=== PATIENT | female | born 1945 | race Caucasian/White ===

== ENCOUNTER 2016-12-09 03:43 | Inpatient (IN) | payer MEDICARE, MEDICAID ==
[~2016-12-09] VITALS: Ht 162.6 cm; Wt 132.3 kg
[~2016-12-09 03:43] MED LIST: *GLUCOMETE; *HOLTER -; *MAMMOGRAM; /ESOM40CA; /PRAV20TA; /WARF4TA; ALTA10CA; ALTA10CA3 PO; ALTACE10 PO; ASP325 PO; ASPEC325 PO; ATEN50TA2 PO; AVANDIA8 PO; BACITAB3 PO; BACTRIMDS PO; BACTROCREA TOPICALLY; BISO10TA PO; BISO5TAB5 PO; CAL/VITD PO; CAPOTEN PO; CELEBRE100 PO; CIPRO250 PO; CIPRO500 PO; COUM1TAB19 PO; COUM2.5T11 PO; COUM2TAB10 PO; DARVOCET-N PO; DEBROX; DIABETA5 PO; DIGO0.25 PO; DOCU10CA PO; DRIS50002 PO; DRISDOL50 PO; DURATUSS-G PO; ELIQ5TAB PO; FERR325T3 PO; FLECTOR TOPICAL; FOSAMAX70 PO; FURO20TA2 PO; FURO40TA2 PO; GLUC1KIT SC; GLUC850T; GLUCCOSEAC TOPICAL; GLUCOMETER; GLUCOPH850 PO; GLUCOSE TEST; GLUCULTRA TOPICAL; GLYBURIDE5 PO; HCTZ25 PO; HIBI4LIQ TOP; HUMA75IN2 SC; HUMULIN; HUMULIN703 SC; INSUDET SC; INSUH10VL SC; INSUHUMDS SC; INSULINSYR SUBQ; KEFL500C7 PO; KEFLEX500 PO; LAC-12LO3 TOP; LAMISIL250 PO; LANCMIS; LANCMIS SQ; LASI20TA PO; LASI40TA; LASIX40 PO; LEVA250T PO; LEVAQUI250 PO; LEVAQUI500 PO; LEXA1TAB PO; LINE60TAB PO; LIPITOR20 PO; LOTRISCREA TOPICALLY; LYRICA100 PO; MACROBID PO; MAG400TA PO; MAGN200T3 PO; MAGN400T2 PO; METF850T PO; NASONEX NASAL; NEXI40CA PO; NEXIUM40 PO; NITR4TASL SL; NIZORALCR TOP; NOVO70VL SC; NYST10PW TOP; PANT40TA2 PO; PRAV1TAB39 PO; PRAVACHOL1 PO; PRAVACHOL2 PO; PRILOSEC40 PO; PROL60SO SC; RAMI10CA PO; RAMI5CA PO; RISATAB3 PO; SALI0.9I2 IV; SANT250O8 TOP; SARNLOT TOP; SENO8.6T2 PO; SILV1CRE19 TOP; SOLARAZE TOPICAL; SYMBI INHALATION; TEQUIN PO; TEQUIN400 PO; TESSALO100 PO; TYLE325T5 PO; TYLE650T30 PO; VICODIN PO; WARF4TAB51 PO; ZANTAC150 PO; ZETI10TA; ZETI10TA2 PO; ZETIA PO; ZITHROZPAK PO; [UNRECOGNIZED DRUG - CODE] PO; [UNRECOGNIZED DRUG - CODE] PO; [UNRECOGNIZED DRUG - CODE] PO; [UNRECOGNIZED DRUG - CODE] PO; [UNRECOGNIZED DRUG - CODE] TOPICAL; [UNRECOGNIZED DRUG - OTHER] TOPICAL; [UNRECOGNIZED DRUG - SUPPLY]; dextrose 50% IV; humulin 70/30
[2016-12-09 05:16] LABS: BASO % 0.2 % (0.0-1.0); EOS % 0.2 % (0.0-3.0); LARGE UNSTAINED CELL # 0.1 K/mm3 (0.0-0.4); LARGE UNSTAINED CELL % 0.5 % (0.0-4.0); LYMPH # 0.2 K/mm3 (1.5-4.5); LYMPH % 1.7 % (24.0-44.0); MEAN CORPUSCULAR HGB CONC 31.3 g/dl (32.0-36.5); MEAN CORPUSCULAR VOLUME 89.5 fl (80.0-96.0); MONO # 0.3 K/mm3 (0.0-0.8); MONO % 2.7 % (0.0-5.0); NEUTROPHILS % 94.6 % (36.0-66.0); PLATELET COUNT, AUTOMATED 207 k/mm3 (150-450); RED CELL DISTRIBUTION WIDTH 15.8 % (11.5-14.5); WHITE BLOOD COUNT 12.6 K/mm3 (4.0-10.0)
[2016-12-09 05:38] LABS: ALBUMIN 2.5 GM/DL (3.2-5.2); ALBUMIN/GLOBULIN RATIO 0.58 (1.00-1.93); ALKALINE PHOSPHATASE 148 U/L (45-117); ALT/SGPT 12 U/L (12-78); ANION GAP 14 MEQ/L (8-16); AST/SGOT 10 U/L (15-37); BILIRUBIN,DIRECT 0.5 MG/DL (0.0-0.2); BILIRUBIN,TOTAL 0.9 MG/DL (0.2-1.0); BLOOD UREA NITROGEN 39 MG/DL (7-18); CALCIUM LEVEL 9.9 MG/DL (8.8-10.2); CARBON DIOXIDE LEVEL 19 MEQ/L (21-32); CHLORIDE LEVEL 100 MEQ/L (98-107); CREATININE FOR GFR 2.08 MG/DL (0.55-1.02); GLOMERULAR FILTRATION RATE 24.8 (>39); POTASSIUM SERUM 4.1 MEQ/L (3.5-5.1); SODIUM LEVEL 133 MEQ/L (136-145); T UPTAKE 37 % (30-39); TOTAL PROTEIN 6.8 GM/DL (6.4-8.2)
[2016-12-09 05:56] LABS: GLUCOSE, FASTING 530 MG/DL (83-110)
[2016-12-09] MEDS ORDERED: HumuLIN R (REGULAR) INSULIN (NovoLIN R) **100U/ML** PER UNIT As Ordered ONE (06:26)
[2016-12-09] MEDS ORDERED: cefTRIAXone SOD 1 GM VIAL (J0696) As Ordered ONE (07:41)
[2016-12-09] MEDS ORDERED: RAMI10CA PO (08:17)
[2016-12-09] MEDS ORDERED: FERR325T3 PO (08:18)
[2016-12-09] MEDS ORDERED: NYST100024 TOP (08:18)
[2016-12-09] MEDS ORDERED: DRIS50002 PO (08:20)
--- NOTE | 2016-12-09 08:22 | REP ---
Clinical: Syncope. Comparison: 03/27/2015. Findings: Stable cardiomegaly. Visualized lung keith are well-aerated and clear. No obvious consolidation, effusion, or pneumothorax. Skeletal structures intact. Impression: Stable cardiomegaly. No acute cardiopulmonary process identified. Signed by Felipe Diop MD 12/09/2016 08:14 A
[2016-12-09] MEDS ORDERED: METOPROLOL 5 MG/5 ML VIAL As Ordered ONE (08:43)
[2016-12-09] MEDS ORDERED: BISOPROLOL FUMARATE 5 MG TAB As Ordered ONE (08:43)
[2016-12-09] MEDS ORDERED: LEVEMIR (INSULIN DETEMIR) 1 UNITS/0.01ML As Ordered ONE (08:45)
--- NOTE | 2016-12-09 08:49 | ECGEPIP ---
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
[2016-12-09 09:17] LABS: ABG BASE EXCESS -7.2 (-2.0-2.0); ABG DEVICE ROOM AIR; ABG HCO3 15.8 MEQ/L (22.0-26.0); ABG PARTIAL PRESSURE CO2 25.5 mmHg (35.0-45.0); ABG PARTIAL PRESSURE O2 83.5 mmHg (75.0-100.0); ABG STANDARD HCO3 18.6 MEQ/L (22.0-26.0); ABG TOTAL CO2 16.6 MEQ/L (23.0-31.0)
--- NOTE | 2016-12-09 09:19 | REP ---
Portable chest x-ray: Single AP view. History: Difficulty breathing. Findings: Upright portable chest x-ray shows clear well inflated lungs. Moderate cardiomegaly is observed unchanged. The aorta is calcific. Pulmonary vasculature is not increased. Impression: Cardiomegaly. No infiltrate seen. Signed by Chi Kirby MD 12/09/2016 01:41 P
[2016-12-09] MEDS ORDERED: MEROPENEM 1 GM VIAL (J2185) As Ordered ONE (14:23)
[2016-12-09 15:45] VITALS: BP 92/58
--- NOTE | 2016-12-09 15:54 | EDDOCDS ---
Physician Documentation [facility] Name: Karen Painter Age: 71 yrs Sex: Female : 1945 Arrival Date: 12/09/2016 Time: 03:43 Bed Admit Hold Private MD: Jann Sherman E. Disposition: 12/09/16 07:55 Hospitalization ordered by Julius Green for Inpatient Admission. Preliminary diagnosis are Urinary tract infection, site not specified, Chronic atrial fibrillation. - Bed requested for PCU. - Status is Inpatient Admission. bcj - Condition is Stable. - Problem is new. - Symptoms have improved. Historical: - Allergies: nkda, but reports headache with keflex; - Home Meds: 1. Altace 10 mg Oral cap 1 cap once daily 2. bisoprolol fumarate 5 mg oral tab 1 tab twice daily 3. Eliquis 5 mg oral tab 1 tab 2 times per day 4. ferrous sulfate 325 mg (65 mg iron) Oral cpER 325 mg daily 5. Humalog 100 unit/mL Sub-Q soln sliding scale at meals and bedtime 6. Lasix 40 mg Oral tab 1 tab once daily 7. Levemir 100 unit/mL subcutaneous soln 70 unit three times a day 8. Lexapro 10 mg Oral tab 1 tab once daily 9. magnesium oxide 400 mg Oral cap 400 mg twice a day 10. Nexium 40 mg Oral cpDR 1 cap once daily 11. Nitrostat 0.4 mg SL subl 1 tab every 5 minutes 12. Pravachol 20 mg Oral tab 1 tab once daily 13. prolia 60mg q 6 months 14. Zetia 10 mg Oral tab 1 tab once daily - PMHx: Atrial Fib; CHF; COPD; hyperlipidemia; Diabetes - IDDM: controlled; Kidney stones; Hypertension; reflux; Osteoporosis; renakl insufficiency; venous insufficiency; - Social history: Smoking status: Patient states former smoker of tobacco. No barriers to communication noted, The patient speaks fluent Khmer, Speaks appropriately for age. - Family history: Not pertinent. - : The pt / caregiver states he / she is on anticoagulants: Eliquis Home medication list is obtained from [employer] import data. - Exposure Risk Screening:: None identified. Vital Signs: 12/09 03:53 BP 151 / 99 RA Sitting (auto/reg); Pulse 126 MON; Resp 24 S; Temp 99.4(TE); Pulse Ox cln 94% on R/A; Weight 148.78 kg / 328 lbs (R); Height 5 ft. 4 in. (162.56 cm) (R); Pain 0/10; 05:13 BP 139 / 78 (auto/); ko2 05:16 Pulse 128 MON; Pulse Ox 93% ; ko2 05:42 Pulse 132 MON; Pulse Ox 95% ; ko2 05:43 BP 123 / 58 (auto/); ko2 06:12 Pulse 120 MON; Pulse Ox 94% ; ko2 06:13 BP 112 / 69 (auto/); ko2 06:43 BP 122 / 74 (auto/); ko2 06:43 Pulse 114 MON; Pulse Ox 94% ; ko2 08:20 Pulse 142 MON; Pulse Ox 97% ; bcj 08:24 BP 123 / 75 (auto/); bcj 08:24 Pulse Ox 97% ; bcj 15:08 BP 122 / 58; Pulse 106; Resp 16; Temp 96.4(O); Pulse Ox 95% on R/A; Pain 4/10; bcj 03:53 Body Mass Index 56.30 (148.78 kg, 162.56 cm) cln MDM: 04:34 ECG WITH READING ER PHYS+CARDIAG ordered. EDMS 04:49 Bottom Buffer/Pulse Ox/q 30 min VS ordered. nov 04:49 IV Saline Lock ordered. nov 04:49 Rhythm Strip to chart ordered. nov 04:49 Undress patient appropriately for examination ordered. nov 04:50 Basic Metabolic Profile Ordered. EDMS 04:50 CBC with Diff Ordered. EDMS 04:50 Cardiac Injury Profile Ordered. EDMS 04:50 Troponin Ordered. EDMS 05:00 Financial registration complete. hs2 05:03 [facility] Payment Agreement was scanned into [employer] and attached to record. hs2 05:04 Kaufman ordered. cs11 05:04 NS 0.9% 500 ml IV at bolus once ordered. cs11 05:06 Urinalysis Ordered. EDMS 05:06 Urine Culture Ordered. EDMS 05:06 Lactic Acid (Stern tube on ice) Ordered. EDMS 05:06 Chest, 1 View Ordered. EDMS 05:07 -Blood Culture (Adults Only), peripheral from different site, or from device/port/PICC cs11 etc. if present ordered. 05:08 -Blood Culture Ordered. EDMS 05:20 -Blood Culture (Adults Only), peripheral from different site, or from device/port/PICC ml3 etc. if present complete. 05:21 BLOOD CULTURES Ordered. EDMS 05:24 LIVER PROFILE Ordered. EDMS 05:24 THYROID PROFILE Ordered. EDMS 05:47 CBC with Diff Reviewed. cs11 06:20 Basic Metabolic Profile Reviewed. cs11 06:20 Lactic Acid (Stern tube on ice) Reviewed. cs11 06:20 LIVER PROFILE Reviewed. cs11 06:20 Cardiac Injury Profile Reviewed. cs11 06:20 Troponin Reviewed. cs11 06:20 THYROID PROFILE Reviewed. cs11 06:23 Insulin Regular Human 20 units IVP once ordered. cs11 06:23 Accucheck ordered. cs11 06:24 NS 0.9% 500 ml IV at bolus once ordered. cs11 06:59 Fingerstick Blood Sugar Ordered. EDMS 07:07 Urinalysis Reviewed. sd1 07:07 Fingerstick Blood Sugar Reviewed. sd1 07:08 BED REQUEST+ADM ordered. EDMS 07:32 cefTRIAXone 1 grams IVPB once over 30 mins; dilute in 50mL of NS or D5W ordered. sd1 08:23 Written Provider Order was scanned into [employer] and attached to record. lbd 08:41 Written Provider Order was scanned into [employer] and attached to record. lbd 08:43 Chest, 1 view Ordered. EDMS 08:44 ARTERIAL BLOOD GAS Ordered. EDMS 08:44 CARDIAC INJURY PROFILE Ordered. EDMS 08:44 CARDIAC INJURY PROFILE Ordered. EDMS 08:44 TROPONIN Ordered. EDMS 08:44 TROPONIN Ordered. EDMS 08:45 PHYSICAL THERAPY EVAL & TREAT ordered. EDMS 08:46 Admission / Observation Status ordered. EDMS 08:46 ECHOCARD,DOPPLER/COLOR FLOW ordered. EDMS 08:46 CONSISTENT CARBOHYDRATES ordered. EDMS 09:05 Metoprolol 2.5 mg IVP once; Hold for SBP < 100 or HR < 60. ordered. bcj 09:05 Bisoprolol 5 mg PO once ordered. bcj 09:05 Levemir - Insulin Detemir 100 unit/mL 70 units Sub-Q once ordered. bcj 12:13 Fingerstick Blood Sugar Ordered. EDMS 14:54 T-Sheet-- Draft Copy was scanned into [employer] and attached to record. gb Point of Care Testing: Blood Glucose: 06:53 Blood Glucose: 363 mg/dL; ko2 Ranges: Administered Medications: 05:36 Drug: NS 0.9% 500 ml [sodium chloride 0.9 % intravenous solution] Route: IV; Rate: ko2 bolus; Site: left forearm; 06:25 Drug: NS 0.9% 500 ml [sodium chloride 0.9 % intravenous solution] Route: IV; Rate: ko2 bolus; Site: left forearm; 06:28 Drug: Insulin Regular Human 20 units [insulin regular human 100 unit/mL injection ko2 solution (0.2 mL)] {Co-Signature: dheeraj (Aixa Yin RN).} Route: IVP; Site: left forearm; 07:47 Drug: cefTRIAXone 1 grams [ceftriaxone 1 gram solution for injection] Route: IVPB; bcj Infused Over: 30 mins; Site: left antecubital; 09:00 Drug: Metoprolol 2.5 mg [metoprolol 5 mg/5 mL intravenous solution (2.5 mL)] Route: bcj IVP; Site: left antecubital; 09:06 Drug: Bisoprolol 5 mg [bisoprolol fumarate 5 mg tablet (1 tabs)] Route: PO; bcj 09:06 Drug: Levemir - Insulin Detemir 70 units [insulin detemir 100 unit/mL subcutaneous bcj solution (0.7 mL)] {Co-Signature: eze (Marimar Burns RN).} Route: Sub-Q; Site: left upper arm; Signatures: Dispatcher [employer] EDPR Li Andres MD MD sd1 Stacy Peters, Telecommunications Field Engineer Unit lbd Mauro Quintana RN RN bcj Newman, Jill New, RN RN jan Barnhardt, Gloria, Reg Reg gb SaundraManny manMerline, Telecommunications Field Engineer Unit ml3 Billy Rahman DO DO cs11 Amy Sun RN RN ko2 Barrington Bradford RN RN mts Stanton, Hillary, Reg Reg hs2 Aixa Burns RN jc4 The chart was reviewed and I authenticate all verbal orders and agree with the evaluation and treatment provided.Corrections: (The following items were deleted from the chart) 05:22 05:06 THYROID PROFILE+LAB ordered. EDMS EDMS 05:22 05:06 LIVER PROFILE+LAB ordered. EDMS EDMS Attachments: 05:03 [facility] Payment Agreement hs2 08:23 Written Provider Order lbd 08:41 Written Provider Order lbd 14:54 T-Sheet-- Draft Copy gb MTDD
--- NOTE | 2016-12-09 15:54 | EDDOCDS ---
Nurse's Notes [facility] Name: Eddie Painter Age: 71 yrs Sex: Female : 1945 Arrival Date: 12/09/2016 Time: 03:43 Bed Admit Hold Private MD: Jann Sherman E. Diagnosis: Urinary tract infection, site not specified;Chronic atrial fibrillation Presentation: 12/09 03:47 Presenting complaint: EMS states: weakness, pt fell at home with no injury. This is the ko2 second day in a row she has fallen and been unable to lift herself up. Pt did not want to come but EMS insisted due to pts inability to stand up and care for self. Suicide/Homicide risk assessment- the patient denies having any suicidal and/or homicidal ideations and does not present with any other emotional, behavioral or mental health complaints. Status: Patient is not a financial services officer or dependent. Transition of care: patient was not received from another setting of care. Care prior to arrival: See EMS report. 03:47 Acuity: VIET Level 4 ko2 03:47 Method Of Arrival: Ambulance ko2 04:34 Adult Sepsis Screening: The patient does not have new or worsening altered mentation. ko2 Patient's respiratory rate is less than 22. Systolic blood pressure is greater than 100. Patient has a qSOFA score of 0- Negative Sepsis Screen. 04:43 Acuity level changed due to complexity of care. ko2 04:43 Acuity: VIET Level 3 ko2 Triage Assessment: 03:57 General: Appears in no apparent distress. General: Appears obese, unkempt, Behavior is. ko2 Pain: Denies pain. The patient is triaged at the bedside. See Assessment in Nurses Notes section of ED record. Neurological: No deficits noted. Respiratory: Airway is patent Respiratory effort is even, unlabored, Respiratory pattern is regular, symmetrical. GI: Abdomen is obese. Derm: stool on feet. Musculoskeletal: pt states can't stand up. Historical: - Allergies: nkda, but reports headache with keflex; - Home Meds: 1. Altace 10 mg Oral cap 1 cap once daily 2. bisoprolol fumarate 5 mg oral tab 1 tab twice daily 3. Eliquis 5 mg oral tab 1 tab 2 times per day 4. ferrous sulfate 325 mg (65 mg iron) Oral cpER 325 mg daily 5. Humalog 100 unit/mL Sub-Q soln sliding scale at meals and bedtime 6. Lasix 40 mg Oral tab 1 tab once daily 7. Levemir 100 unit/mL subcutaneous soln 70 unit three times a day 8. Lexapro 10 mg Oral tab 1 tab once daily 9. magnesium oxide 400 mg Oral cap 400 mg twice a day 10. Nexium 40 mg Oral cpDR 1 cap once daily 11. Nitrostat 0.4 mg SL subl 1 tab every 5 minutes 12. Pravachol 20 mg Oral tab 1 tab once daily 13. prolia 60mg q 6 months 14. Zetia 10 mg Oral tab 1 tab once daily - PMHx: Atrial Fib; CHF; COPD; hyperlipidemia; Diabetes - IDDM: controlled; Kidney stones; Hypertension; reflux; Osteoporosis; renakl insufficiency; venous insufficiency; - Social history: Smoking status: Patient states former smoker of tobacco. No barriers to communication noted, The patient speaks fluent Greek, Speaks appropriately for age. - Family history: Not pertinent. - : The pt / caregiver states he / she is on anticoagulants: Eliquis Home medication list is obtained from [employer] import data. - Exposure Risk Screening:: None identified. Screenin:35 Screening information is obtained from the patient. Fall risk: At risk due to age, ko2 prior history of falls, The following interventions are performed due to a positive Fall Risk Screen: Fall Risk is added to Special Handling on the patient Summary Screen. A Fall Risk Bracelet was applied to the patient. Side Rails are placed in the up position. A Call Jensen is given with instruction to call for help when getting out of bed. Fall Alert bracelet is placed on the patient. Assistance ADL's: requires no assistance with activities of daily living. Abuse/DV Screen: The patient / caregiver reports he/she is: not in a situation that causes fear, pain or injury. Nutritional screening: No deficits noted. Advance Directives: Currently, there is no health care proxy. home support is inadequate. Assessment: 03:59 General: See triage assessment. ko2 04:40 General: pt had stool all over gown, legs and feet. Pt cleaned up. Dressings on abdomen ko2 due to abscesses that pt states is being taken care of by Dr. Goetz. 05:02 General: Appears in no apparent distress, Behavior is appropriate for age, cooperative. ko2 Pain: Denies pain. Neurological: Level of Consciousness is awake, alert. Cardiovascular: Rhythm is atrial fibrillation with rapid ventricular response. Respiratory: Airway is patent Respiratory effort is even, unlabored. Derm: Skin is normal, Abscess located on abdomen. 06:17 General: Appears in no apparent distress, Behavior is appropriate for age, cooperative. ko2 Pain: Denies pain. Neurological: Level of Consciousness is awake, alert. Cardiovascular: Rhythm is atrial fibrillation. Respiratory: Airway is patent Respiratory effort is even, unlabored. Derm:. 07:51 General: Appears in no apparent distress, comfortable, Behavior is cooperative. Pain: bcj Denies pain. Cardiovascular: Rhythm is atrial fibrillation. Derm: Skin is pink, warm & dry. 11:14 General: Appears in no apparent distress, comfortable, Behavior is cooperative. Pain: bcj Denies pain. Cardiovascular: Rhythm is atrial fibrillation with rapid ventricular response. Derm: Skin is pink, warm & dry. 15:27 General: Appears in no apparent distress, comfortable, Behavior is cooperative. Pain: bcj Location: right leg and left leg Pain currently is 4 out of 10 on a pain scale. Cardiovascular: Rhythm is atrial fibrillation with rapid ventricular response. Derm: Skin is pink, warm & dry. Social Work Consult: 06:19 Social Work Note: Met with PT to discuss concerns for her home. PT states she has a jfb lady come to her home every Monday to clean and do laundry and that her son will occasionally help her with things. Attempted to discuss report that her home wasn't clean and that she herself was not but she was focused on "when will I get upstairs. I get so bored and uncomfortable lying her" Placed to call to her son Eric [phone] and left requesting he call to discuss. 07:52 Social Work Note: Per ALEX Kennedy, Spoke with Pt's Son. According to Son, Pt has been rb declining services in her home and help from family. Pt does have someone come in every Monday for house keeping and laundry. Family believes she needs assisted living accommodations. Vital Signs: 03:53 BP 151 / 99 RA Sitting (auto/reg); Pulse 126 MON; Resp 24 S; Temp 99.4(TE); Pulse Ox cln 94% on R/A; Weight 148.78 kg (R); Height 5 ft. 4 in. (162.56 cm) (R); Pain 0/10; 05:13 BP 139 / 78 (auto/); ko2 05:16 Pulse 128 MON; Pulse Ox 93% ; ko2 05:42 Pulse 132 MON; Pulse Ox 95% ; ko2 05:43 BP 123 / 58 (auto/); ko2 06:12 Pulse 120 MON; Pulse Ox 94% ; ko2 06:13 BP 112 / 69 (auto/); ko2 06:43 BP 122 / 74 (auto/); ko2 06:43 Pulse 114 MON; Pulse Ox 94% ; ko2 08:20 Pulse 142 MON; Pulse Ox 97% ; bcj 08:24 BP 123 / 75 (auto/); bcj 08:24 Pulse Ox 97% ; bcj 15:08 BP 122 / 58; Pulse 106; Resp 16; Temp 96.4(O); Pulse Ox 95% on R/A; Pain 4/10; bcj 03:53 Body Mass Index 56.30 (148.78 kg, 162.56 cm) cln Vitals: 04:34 Log In Time N/A - ambulance arrival. ko2 ED Course: 03:44 Patient visited by Bobby Arguello, Fine Arts Chair. ml3 03:44 Jann Sherman is Private Physician. ml3 03:44 Amy Sun,RN is Primary Nurse. ml3 03:44 Patient moved to Waiting ml3 03:44 Patient moved to 18 ml3 03:50 Triage Initiated ko2 03:54 Patient visited by Blanca Lozano PCA. cln 03:54 Pt greeted and oriented to ED. Patient advised of names of staff involved in care, cln location of call jensen, wait times and NPO status. Patient has correct armband on for positive identification. Bed in low position. Call light in reach. Side rails up X 1. 04:36 Melida Abarca DO is Attending Physician. cs11 04:36 Patient visited by Melida Abarca DO. cs11 04:49 Patient visited by Blanca Lozano PCA. cln 04:49 EKG done. (by ED staff). Reviewed by Melida Abarca DO. cln 05:00 Inserted saline lock: 20 gauge in left forearm and blood collected. The patient ko2 tolerated the procedure well. 05:01 Basic Metabolic Profile Sent. ko2 05:01 CBC with Diff Sent. ko2 05:01 Cardiac Injury Profile Sent. ko2 05:02 Troponin Sent. ko2 05:03 The patient / caregiver is instructed regarding the plan of care and ED course. ko2 05:03 [facility] Payment Agreement was scanned into [employer] and attached to record. hs2 05:27 Lactic Acid (Stern tube on ice) Sent. ko2 05:27 Urine Culture Sent. ko2 05:27 Urinalysis Sent. ko2 05:27 THYROID PROFILE Sent. ko2 05:27 LIVER PROFILE Sent. ko2 05:27 Kaufman cath inserted 18 Fr. Balloon inflated. To gravity drainage. Urine specimen ko2 collected. returned cloudy urine. 05:36 -Blood Culture Sent. ko2 05:37 Patient visited by Amy Sun RN. ko2 06:00 Notified attending ED physician of Critical lab value. Dr Abarca notified of glucose ko2 530 and lactic acid of 2.3. 06:17 Patient visited by Amy Sun RN. ko2 06:53 Patient visited by Amy Sun RN. ko2 06:53 Patient visited by Amy Sun RN. ko2 06:54 Attending Physician role handed off by Melida Abarca DO sd1 06:54 Li Andres MD is Attending Physician. sd1 07:47 Patient visited by Saji Rouse PCA. jlf 07:51 No apparent distress. Resting quietly. Awaiting bed assignment. bcj 07:51 IV is intact. bcj 07:52 Patient visited by Mauro Quintana, JOSUE. bcj 07:55 Julius Green is Hospitalizing Provider. sd1 08:20 No apparent distress. Resting quietly. Awaiting bed assignment. bcj 08:20 Inserted saline lock: 20 gauge in left forearm. bcj 08:23 Written Provider Order was scanned into [employer] and attached to record. lbd 08:27 Chest, 1 View Returned. EDMS 08:41 Written Provider Order was scanned into [employer] and attached to record. lbd 08:52 Primary Nurse role handed off by Amy Sun RN jc4 08:53 Mauro Quintana, JOSUE is Primary Nurse. jc4 09:06 EKG-ADULT Returned. EDMS 09:10 ARTERIAL BLOOD GAS Sent. cs15 09:21 Patient moved to Admit Hold jc4 09:53 Chest, 1 view Returned. EDMS 11:17 Patient visited by Mauro Quintana RN. bcj 14:54 T-Sheet-- Draft Copy was scanned into [employer] and attached to record. gb 15:09 Patient visited by Mauro Quintana RN. bcj 15:27 No apparent distress. Resting quietly. Awaiting bed assignment. bcj 15:27 IV is intact. No procedures done that require assistance. bcj 15:31 Patient visited by Mauro Quintana RN. bcj Administered Medications: 05:36 Drug: NS 0.9% 500 ml [sodium chloride 0.9 % intravenous solution] Route: IV; Rate: ko2 bolus; Site: left forearm; 06:25 Drug: NS 0.9% 500 ml [sodium chloride 0.9 % intravenous solution] Route: IV; Rate: ko2 bolus; Site: left forearm; 06:28 Drug: Insulin Regular Human 20 units [insulin regular human 100 unit/mL injection ko2 solution (0.2 mL)] {Co-Signature: dheeraj (Aixa Yin RN).} Route: IVP; Site: left forearm; 07:47 Drug: cefTRIAXone 1 grams [ceftriaxone 1 gram solution for injection] Route: IVPB; bcj Infused Over: 30 mins; Site: left antecubital; 09:00 Drug: Metoprolol 2.5 mg [metoprolol 5 mg/5 mL intravenous solution (2.5 mL)] Route: bcj IVP; Site: left antecubital; 09:06 Drug: Bisoprolol 5 mg [bisoprolol fumarate 5 mg tablet (1 tabs)] Route: PO; bcj 09:06 Drug: Levemir - Insulin Detemir 70 units [insulin detemir 100 unit/mL subcutaneous bcj solution (0.7 mL)] {Co-Signature: eze (Marimar Burns RN).} Route: Sub-Q; Site: left upper arm; Point of Care Testing: Blood Glucose: 06:53 Blood Glucose: 363 mg/dL; ko2 Ranges: RT: 09:10 ABG's drawn from left radial artery allens test done and positive pressure held for 5 cs15 minutes no bleeding noted pressure bandage applied specimen sent pt. tolerated well. Order Results: Lab Order: Basic Metabolic Profile; SPEC'M 12/09/16 04:59 Test: GLUCOSE, FASTING; Value: 530; Range: 83-110; Abnormal: Above upper panic limits; Units: MG/DL; Status: F Test: BLOOD UREA NITROGEN; Value: 39; Range: 7-18; Abnormal: Above high normal; Units: MG/DL; Status: F Test: CREATININE FOR GFR; Value: 2.08; Range: 0.55-1.02; Abnormal: Above high normal; Units: MG/DL; Status: F Test: GLOMERULAR FILTRATION RATE; Value: 24.8; Range: >39; Abnormal: Below low normal; Status: F Test: SODIUM LEVEL; Value: 133; Range: 136-145; Abnormal: Below low normal; Units: MEQ/L; Status: F Test: POTASSIUM SERUM; Value: 4.1; Range: 3.5-5.1; Units: MEQ/L; Status: F Test: CHLORIDE LEVEL; Value: 100; Range: 98-107; Units: MEQ/L; Status: F Test: CARBON DIOXIDE LEVEL; Value: 19; Range: 21-32; Abnormal: Below low normal; Units: MEQ/L; Status: F Test: ANION GAP; Value: 14; Range: 8-16; Units: MEQ/L; Status: F Test: CALCIUM LEVEL; Value: 9.9; Range: 8.8-10.2; Units: MG/DL; Status: F Test Note: ; Units are mL/min/1.73 m2 Chronic Kidney Disease Staging per NKF: Stage I & II GFR >=60 Normal to Mildly Decreased Stage III GFR 30-59 Moderately Decreased Stage IV GFR 15-29 Severely Decreased Stage V GFR <15 Very Little GFR Left ESRD GFR <15 on FRONT DESK MANAGER Lab Order: CBC with Diff; SPEC'M 12/09/16 04:59 Test: WHITE BLOOD COUNT; Value: 12.6; Range: 4.0-10.0; Abnormal: Above high normal; Units: K/mm3; Status: F Test: RED BLOOD COUNT; Value: 4.62; Range: 4.00-5.40; Units: M/mm3; Status: F Test: HEMOGLOBIN; Value: 12.9; Range: 12.0-16.0; Units: g/dl; Status: F Test: HEMATOCRIT; Value: 41.4; Range: 36.0-47.0; Units: %; Status: F Test: MEAN CORPUSCULAR VOLUME; Value: 89.5; Range: 80.0-96.0; Units: fl; Status: F Test: MEAN CORPUSCULAR HEMOGLOBIN; Value: 28.0; Range: 27.0-33.0; Units: pg; Status: F Test: MEAN CORPUSCULAR HGB CONC; Value: 31.3; Range: 32.0-36.5; Abnormal: Below low normal; Units: g/dl; Status: F Test: RED CELL DISTRIBUTION WIDTH; Value: 15.8; Range: 11.5-14.5; Abnormal: Above high normal; Units: %; Status: F Test: PLATELET COUNT, AUTOMATED; Value: 207; Range: 150-450; Units: k/mm3; Status: F Test: NEUTROPHILS %; Value: 94.6; Range: 36.0-66.0; Abnormal: Above high normal; Units: %; Status: F Test: LYMPH %; Value: 1.7; Range: 24.0-44.0; Abnormal: Below low normal; Units: %; Status: F Test: MONO %; Value: 2.7; Range: 0.0-5.0; Units: %; Status: F Test: EOS %; Value: 0.2; Range: 0.0-3.0; Units: %; Status: F Test: BASO %; Value: 0.2; Range: 0.0-1.0; Units: %; Status: F Test: LARGE UNSTAINED CELL %; Value: 0.5; Range: 0.0-4.0; Units: %; Status: F Test: NEUTROPHILS #; Value: 12.0; Range: 1.8-7.7; Abnormal: Above high normal; Units: K/mm3; Status: F Test: LYMPH #; Value: 0.2; Range: 1.5-4.5; Abnormal: Below low normal; Units: K/mm3; Status: F Test: MONO #; Value: 0.3; Range: 0.0-0.8; Units: K/mm3; Status: F Test: EOS #; Value: 0.0; Range: 0.0-0.50; Units: K/mm3; Status: F Test: BASO #; Value: 0.0; Range: 0.0-0.2; Units: K/mm3; Status: F Test: LARGE UNSTAINED CELL #; Value: 0.1; Range: 0.0-0.4; Units: K/mm3; Status: F Lab Order: Cardiac Injury Profile; [facility]' 12/09/16 04:59 Test: CPK CREATINE PHOSPHOKINASE; Value: 33; Range: 26-192; Units: U/L; Status: F Test: CK-MB VALUE MASS; Value: 1.0; Range: 0.0-3.6; Units: NG/ML; Status: F Test: MB/CK RELATIVE INDEX; Value: 3.03; Range: < OR =4; Status: F Test Note: ; DIAGNOSIS CRITERIA MMB ng/ml Relative Index (RI) NON-AMI < or = 5 N/A STERN ZONE > 5 < or = 4 AMI > 5 > 4 Lab Order: Troponin; [facility]' 12/09/16 04:59 Test: TROPONIN I; Value: < 0.02; Range: < 0.10; Units: NG/ML; Status: F Test Note: ; Troponin I Reference Interval for [facility] LOCI: 99th Percentile= 0.00-0.045 ng/ml Risk Stratification: <= 0.10 ng/ml Decreased Risk for Adverse Clinical Events. 0.10-1.50 ng/ml Increased Risk for Adverse Clinical Events. Evaluation of additional criterion and/or repeat testing in 2-6 hours is suggested to rule out myocardial damage. >= 1.50 ng/ml Indicative of Myocardial Injury. Lab Order: Urinalysis; SPEC' 12/09/16 05:23 Test: APPEARANCE, URINE; Value: TURBID; Range: CLEAR; Abnormal: Above high normal; Status: F Test: COLOR, URINE; Value: YELLOW; Range: YELLOW; Status: F Test: PH,URINE; Value: 5.0; Range: 5.0-9.0; Units: UNITS; Status: F Test: SPECIFIC GRAVITY URINE AUTO; Value: 1.016; Range: 1.002-1.035; Status: F Test: PROTEIN, URINE AUTO; Value: 2+; Range: NEGATIVE; Abnormal: Above high normal; Units: mg/dL; Status: F Test: GLUCOSE, URINE (UA) AUTO; Value: 3+; Range: NEGATIVE; Abnormal: Above high normal; Units: mg/dL; Status: F Test: KETONE, URINE AUTO; Value: NEGATIVE; Range: NEGATIVE; Units: mg/dL; Status: F Test: UROBILINOGEN, URINE AUTO; Value: 0.2; Range: 0.0-2.0; Units: mg/dL; Status: F Test: BILIRUBIN, URINE AUTO; Value: NEGATIVE; Range: NEGATIVE; Status: F Test: NITRITE, URINE AUTO; Value: NEGATIVE; Range: NEGATIVE; Status: F Test: LEUKOCYTE ESTERASE, URINE AUTO; Value: 2+; Range: NEGATIVE; Abnormal: Above high normal; Status: F Test: BLOOD, URINE BLOOD; Value: 2+; Range: NEGATIVE; Abnormal: Above high normal; Status: F Test: WBC, URINE AUTO; Value: TNTC; Range: 0-3; Abnormal: Above high normal; Units: /HPF; Status: F Test: RBC, URINE AUTO; Value: 32; Range: 0-3; Abnormal: Above high normal; Units: /HPF; Status: F Test: BACTERIA, URINE AUTO; Value: 2+; Range: NEGATIVE; Abnormal: Above high normal; Status: F Test: SQUAMOUS EPITHELIAL CELL UR AU; Value: 0; Range: 0-6; Units: /HPF; Status: F Test: HYALINE CAST, URINE AUTO; Value: 0; Range: 0-1; Units: /LPF; Status: F Lab Order: Lactic Acid (Stern tube on ice); SPEC'M 12/09/16 05:23 Test: LACTIC ACID LEVEL, LACTATE; Value: 2.3; Range: 0.4-2.0; Abnormal: Above upper panic limits; Units: MMOL/L; Status: F Lab Order: LIVER PROFILE; SPEC'M 12/09/16 04:59 Test: AST/SGOT; Value: 10; Range: 15-37; Abnormal: Below low normal; Units: U/L; Status: F Test: ALT/SGPT; Value: 12; Range: 12-78; Units: U/L; Status: F Test: ALKALINE PHOSPHATASE; Value: 148; Range: 45-117; Abnormal: Above high normal; Units: U/L; Status: F Test: BILIRUBIN,TOTAL; Value: 0.9; Range: 0.2-1.0; Units: MG/DL; Status: F Test: BILIRUBIN,DIRECT; Value: 0.5; Range: 0.0-0.2; Abnormal: Above high normal; Units: MG/DL; Status: F Test: TOTAL PROTEIN; Value: 6.8; Range: 6.4-8.2; Units: GM/DL; Status: F Test: ALBUMIN; Value: 2.5; Range: 3.2-5.2; Abnormal: Below low normal; Units: GM/DL; Status: F Test: ALBUMIN/GLOBULIN RATIO; Value: 0.58; Range: 1.00-1.93; Abnormal: Below low normal; Status: F Lab Order: THYROID PROFILE; [facility]12/09/16 04:59 Test: T UPTAKE; Value: 37; Range: 30-39; Units: %; Status: F Test: THYROXINE (T4); Value: 8.0; Range: 4.5-12.0; Units: UG/DL; Status: F Test: FREE THYROXINE INDEX; Value: 3.0; Range: 1.3-4.8; Units: %; Status: F Test: THYROID STIMULATING HORMONE; Value: 0.727; Range: 0.358-3.740; Units: uIU/ML; Status: F Lab Order: Fingerstick Blood Sugar; [facility]12/[facility]16 06:51 Test: BEDSIDE GLUCOSE; Value: 363; Range: 83-110; Abnormal: Above high normal; Units: MG/DL; Status: F Lab Order: ARTERIAL BLOOD GAS; [facility] 12/09/16 09:09 Test: ABG pH (ARTERIAL); Value: 7.410; Range: 7.350-7.450; Units: UNITS; Status: F Test: ABG PARTIAL PRESSURE CO2; Value: 25.5; Range: 35.0-45.0; Abnormal: Below low normal; Units: mmHg; Status: F Test: ABG PARTIAL PRESSURE O2; Value: 83.5; Range: 75.0-100.0; Units: mmHg; Status: F Test: ABG TOTAL CO2; Value: 16.6; Range: 23.0-31.0; Abnormal: Below low normal; Units: MEQ/L; Status: F Test: ABG HCO3; Value: 15.8; Range: 22.0-26.0; Abnormal: Below low normal; Units: MEQ/L; Status: F Test: ABG BASE EXCESS; Value: -7.2; Range: -2.0-2.0; Abnormal: Below low normal; Status: F Test: ABG STANDARD HCO3; Value: 18.6; Range: 22.0-26.0; Abnormal: Below low normal; Units: MEQ/L; Status: F Test: ABG O2 SATURATION; Value: 96.5; Range: 95.0-99.0; Units: %; Status: F Test: ABG DEVICE; Value: ROOM AIR; Status: F Lab Order: CARDIAC INJURY PROFILE; [facility]' 12/09/16 13:06 Test: CPK CREATINE PHOSPHOKINASE; Value: 59; Range: 26-192; Abnormal: Delta; Units: U/L; Status: F Test: CK-MB VALUE MASS; Value: 1.0; Range: 0.0-3.6; Units: NG/ML; Status: F Test: MB/CK RELATIVE INDEX; Value: 1.69; Range: < OR =4; Status: F Test Note: ; DIAGNOSIS CRITERIA MMB ng/ml Relative Index (RI) NON-AMI < or = 5 N/A STERN ZONE > 5 < or = 4 AMI > 5 > 4 Lab Order: TROPONIN; [facility]' 12/09/16 13:06 Test: TROPONIN I; Value: < 0.02; Range: < 0.10; Units: NG/ML; Status: F Test Note: ; Troponin I Reference Interval for [facility]is LOCI: 99th Percentile= 0.00-0.045 ng/ml Risk Stratification: <= 0.10 ng/ml Decreased Risk for Adverse Clinical Events. 0.10-1.50 ng/ml Increased Risk for Adverse Clinical Events. Evaluation of additional criterion and/or repeat testing in 2-6 hours is suggested to rule out myocardial damage. >= 1.50 ng/ml Indicative of Myocardial Injury. Lab Order: Fingerstick Blood Sugar; [facility] 12/09/16 08:57 Test: BEDSIDE GLUCOSE; Value: 314; Range: 83-110; Abnormal: Above high normal; Units: MG/DL; Status: F Lab Order: Fingerstick Blood Sugar; SPEC'M 12/09/16 12:04 Test: BEDSIDE GLUCOSE; Value: 395; Range: 83-110; Abnormal: Above high normal; Units: MG/DL; Status: F Radiology Order: EKG-ADULT Test: EKG-ADULT REASON FOR EXAMINATION: increased HR on monitor; Stationary ECG Study; [facility] - ED; ; Test Date: 2016-12-09; Pat Name: EDDIE PAINTER Department:; Room: -; Gender: F Grants Specialist: moncho; : 1945 Requested By: MELIDA ABARCA; Order Number: [id number] Reading MD: Eliseo Singh; Measurements; Intervals [place]; Rate: 136 P:; IN: 0 QRS: 134; QRSD: 147 T: -19; QT: 320; QTc: 483; Interpretive Statements; ATRIAL FIBRILLATION WITH RAPID VENTRICULAR RESPONSE; MARKED RIGHT AXIS DEVIATION; RIGHT BUNDLE BRANCH BLOCK; INCREASED RATE 10/01/16; Electronically Signed On 12-09-2016 8:48:52 EST by Eliseo Singh; Radiology Order: Chest, 1 View Test: Chest, 1 View REASON FOR EXAMINATION: Syncope; Clinical: Syncope.; ; Comparison: 03/27/2015.; ; Findings:; Stable cardiomegaly. Visualized lung keith are well-aerated and clear. No; obvious consolidation, effusion, or pneumothorax. Skeletal structures intact.; ; Impression:; Stable cardiomegaly. No acute cardiopulmonary process identified.; ; ; Signed by; Felipe Diop MD 12/09/2016 08:14 A; Radiology Order: Chest, 1 view Test: Chest, 1 view REASON FOR EXAMINATION: DIFFICULTY BREATHING; Portable chest x-ray: Single AP view.; ; History: Difficulty breathing.; ; Findings: Upright portable chest x-ray shows clear well inflated lungs.; Moderate cardiomegaly is observed unchanged. The aorta is calcific. Pulmonary; vasculature is not increased.; ; Impression:; ; Cardiomegaly. No infiltrate seen.; ; ; Signed by; Chi Kirby MD 12/09/2016 01:41 P; Outcome: 07:55 Decision to Hospitalize by Provider. sd1 15:27 Discharge Assessment: patient administered narcotics - no. The following High Risk bcj Discharge criteria are identified: None. Admitted to PCU accompanied by nurse, accompanied by tech, via stretcher, on monitor. Condition: stable. No special radiology studies were completed. Admission hand-off: Report Faxed Fax receipt verified by Ronald. Property :Personal belongings accompany Pt. 15:53 Patient left the ED. bcj Signatures: Dispatcher [employer] EDMS Li Andres MD MD sd1 Stacy Peters, Fine Arts Chair Unit lbd Mauro Quintana, RN RN bcj Lizzy Mesa, PSA PSA rb Maria D Dong, Reg Reg gb Saundra, MarciaNatashaMerline, Fine Arts Chair Unit ml3 Ariana Kennedy, PSA PSA Marimar Vivar RN RN jc4 Melida Abarca, DO DO cs11 Saji Rouse, TAXI DRIVER SUPERVISOR TAXI DRIVER SUPERVISOR Amy MccloudRN RN ko2 Tang Galvin,RT RT cs15 Isabel Rosenthal, Reg Reg hs2 Blanca Lozano, TAXI DRIVER SUPERVISOR TAXI DRIVER SUPERVISOR cln Aixa Burns RN jc4 Corrections: (The following items were deleted from the chart) 05:02 05:02 Derm: Skin is normal, ko2 ko2 MTDD
--- NOTE | 2016-12-09 16:09 | HPEPDOC ---
Medical History and Physical Date of Admission Dec 09, 2016 at 08:38 History and Physical PRIMARY CARE PROVIDER: Dr. Jann Sherman ATTENDING: Anna Green MD CHIEF COMPLAINT: Generalized weakness HISTORY OF PRESENT ILLNESS: This is a 71-year-old female past medical history of atrial fibrillation on Eliquis, hypertension, COPD, recurrent UTIs who presents complaining of a generalized weakness. Patient states that's she's been having generalized weakness over the past few days. She hasn't missed her doses of insulin yesterday and this morning. Denies any chest pain or palpitations. Patient does report that she's been having foul-smelling urine and increased frequency and urgency. No fevers or chills. No sick contacts. Patient denies chest pain/shortness of breath/palpitations. She was noted to be tachycardic and heart rate in the 140s and was given Lopressor IV followed by her home beta constance dose. She also received IV fluids and antibiotics for her infection, which help better control her heart rate. PAST MEDICAL HISTORY: As per HPI PAST SURGICAL HISTORY: Atrial flutter ablation, GLENN PCI, I&D bilateral shoulders SOCIAL HISTORY: History of tobacco abuse. No alcohol or illicit drug use FAMILY HISTORY: Noncontributory ALLERGIES: Please see below. REVIEW OF SYSTEMS: HEENT: Denies sore throat/headache CARDIOVASCULAR: Denies chest pain/palpitations RESPIRATORY: No shortness of breath/cough GASTROINTESTINAL: denies nausea/vomiting GENITOURINARY: + dysuria/urinary urgency, foul smelling urine. MUSCULOSKELETAL: Denies myalgias/arthralgias NEUROLOGICAL: Denies any focal weakness Rest of ROS negative. HOME MEDICATIONS: Please see below. PHYSICAL EXAMINATION: Vitals: (see below) General: No acute distress, laying comfortably in bed. HEENT: Moist mucous membranes. Neck: No JVD or lymphadenopathy Cardiac: Tachycardic, irregularly irregular Pulm: Diminished breath sounds at the bases b/l. No wheezing, rhonchi Abd: NT/ND + BS. Chronic wounds, that appear to be healing, with no areas of cellulitis noted. Obese. Ext: Trace edema BLE. No cyanosis LABORATORY DATA: See below. IMAGING: CXR 12/09/16 Impression: Stable cardiomegaly. No acute cardiopulmonary process identified. ASSESSMENT/PLAN: 1. Sepsis secondary to urinary tract infection- patient did have foul-smelling urine with positive UA. Was tachycardic on presentation with leukocytosis. Patient's had a history of urinary tract infections with history of Klebsiella pneumonia as well as Escherichia coli. She did receive 1 dose of Rocephin in the ED. We'll place patient on meropenem pending cultures. Continue IV fluids. 2. Insulin-dependent mellitus- patient with uncontrolled blood sugars. She is she was switched to 70/30 NovoLog by her primary care physician. Had missed the last few doses of her NovoLog given her generalized weakness. We'll place patient on Levemir in the meantime. 3. Atrial Fibrillation with RVR- patient's rapid rate is likely secondary to her sepsis. She has received fluids as well as antibiotics and her beta constance dose has been increased. Continue Eliquis. 4. Chronic kidney disease stage 3- on IV fluids. Avoid nephrotoxins. 5. Chronic abdominal wounds- do not appear to be infected at this time. No surrounding cellulitis. Follows up with wound center. Other History: CHRONIC DIASTOLIC HF CAD S/P PCI W/GLENN (08/04) MULTI-LEVEL LUMBAR DJD; L3 20% COMPRESSION FRACTURE; L1/2 MODERATE CCS HYPERLIPIDEMIA 2B FE DEFICIENCY ANEMIA OSTEOPOROSIS H/o DVT RLS B/L NEPHROLITHIASIS UTI, RECURRENT VENOUS STASIS DERMATITIS Morbid Obesity. DVT prophy Eliquis Patient will be signed out to Dr. Khan, and the family medicine team will be following starting 12/10/16. Vital Signs BP: 122/74 HR 114 RR 16 O2 sat 94% RA Laboratory Data Labs 24H Laboratory Tests 2 12/09/16 04:59: Aspartate Amino Transf (AST/SGOT) 10L, Alanine Aminotransferase (ALT/SGPT) 12, Alkaline Phosphatase 148H, Total Bilirubin 0.9, Direct Bilirubin 0.5H, Albumin 2.5L, Albumin/Globulin Ratio 0.58L, Anion Gap 14, White Blood Count 12.6H, Red Blood Count 4.62, Hemoglobin 12.9, Hematocrit 41.4, Mean Corpuscular Volume 89.5 , Mean Corpuscular Hemoglobin 28.0, Mean Corpuscular Hemoglobin Concent 31.3L, Red Cell Distribution Width 15.8H, Platelet Count 207, Neutrophils (%) (Auto) 94.6H, Lymphocytes (%) (Auto) 1.7L, Monocytes (%) (Auto) 2.7, Eosinophils (%) ( Auto) 0.2, Basophils (%) (Auto) 0.2, Neutrophils # (Auto) 12.0H, Lymphocytes # ( Auto) 0.2L, Monocytes # (Auto) 0.3, Eosinophils # (Auto) 0.0, Basophils # (Auto ) 0.0, Calcium Level 9.9, Creatine Kinase MB 1.0, Creatine Kinase MB Relative Index 3.03, Free Thyroxine Index 3.0, Glomerular Filtration Rate 24.8L, Large Unclassified Cells # 0.1, Large Unclassified Cells % 0.5, Thyroid Stimulating Hormone (TSH) 0.727, Thyroxine (T4) 8.0, Total Creatine Kinase 33, Total Protein 6.8, Triiodothyronine (T3) Uptake 37, Troponin I < 0.02 12/09/16 05:23: Lactic Acid Level 2.3*H, Urine Appearance TURBIDH, Urine Color YELLOW, Urine pH 5.0, Urine Specific [place] 1.016, Urine Protein 2+H, Urine Glucose (UA) 3+H, Urine Ketones NEGATIVE, Urine Urobilinogen 0.2, Urine Bilirubin NEGATIVE, Urine Leukocyte Esterase 2+H, Urine Bacteria (Auto) 2+H, Urine Blood 2+H, Urine Hyaline Casts (Auto) 0, Urine Nitrite NEGATIVE, Urine RBC (Auto) 32H, Urine Sperm (Auto) , Urine Squamous Epithelial Cells 0, Urine WBC (Auto) TNTCH 12/09/16 06:51: Bedside Glucose (Misc Panel) 363H 12/09/16 08:57: Bedside Glucose (Misc Panel) 314H 12/09/16 09:09: Arterial Blood pH 7.410, Arterial Blood Partial Pressure CO2 25.5L, Arterial Blood Partial Pressure O2 83.5, Arterial Blood Total CO2 16.6L, Arterial Blood HCO3 15.8L, Arterial Blood Base Excess -7.2L, Arterial Blood Oxygen Saturation 96.5, Blood Gas Bicarbonate Standard 18.6L, Oxygen Delivery Device ROOM AIR 12/09/16 12:04: Bedside Glucose (Misc Panel) 395H 12/09/16 13:06: Creatine Kinase MB 1.0, Creatine Kinase MB Relative Index 1.69, Total Creatine Kinase 59#, Troponin I < 0.02 CBC/BMP Laboratory Tests 12/09/16 04:59 Red Blood Count 4.62, Mean Corpuscular Volume 89.5, Mean Corpuscular Hemoglobin 28.0, Mean Corpuscular Hemoglobin Concent 31.3 L, Red Cell Distribution Width 15.8 H, Neutrophils (%) (Auto) 94.6 H, Lymphocytes (%) (Auto) 1.7 L, Monocytes ( %) (Auto) 2.7, Eosinophils (%) (Auto) 0.2, Basophils (%) (Auto) 0.2, Neutrophils # (Auto) 12.0 H, Lymphocytes # (Auto) 0.2 L, Monocytes # (Auto) 0.3 , Eosinophils # (Auto) 0.0, Basophils # (Auto) 0.0 FSBS Laboratory Tests Test 12/09/16 06:51 12/09/16 08:57 12/09/16 12:04 Range/Units Bedside Glucose (Misc Panel) 363 314 395 83-110 MG/DL Microbiology Microbiology 12/09/16 Blood Culture, Received Pending 12/09/16 Blood Culture, Received Pending 12/09/16 Urine Culture, Received Pending Home Medications Scheduled (Prolia) 60 Mg/Ml Juliette 60 MG SC ASDIRECTED PT STATES HAS HAD RECENTLY (Anat-Bid Probiotic) 1 Tab Tab 1 EA PO BID Apixaban Base (Eliquis) 5 Mg Tab 5 MG PO BID Bisoprolol Fumarate (Bisoprolol Fumarate) 5 Mg Tab 5 MG PO BID Escitalopram Oxalate (Lexapro) 10 Mg Tab 10 MG PO DAILY Esomeprazole Magnesium Trihydr (Nexium) 40 Mg Cap 40 MG PO QHS Ferrous Sulfate (Ferrous Sulfate) 325 Mg Tab 325 MG PO DAILY Insulin Aspart Protamine/Aspar (Novolog Mix 70/30 (70-30) 100 Unit/ml) 1 Units/ 0.01 Ml Susp 80 UNITS SC AC Nystatin (Nystatin Powder) 100,000 Unit/Gm Pow 0 TOP BID APPLY UNDER SKIN FOLDS Pravastatin Sodium (Pravachol) 20 Mg Tab 20 MG PO DAILY Ramipril (Ramipril) 10 Mg Cap 10 MG PO DAILY Vitamin D (Drisdol) 50,000 Unit Cap 50,000 UNIT PO QWEEK WEDNESDAYS Scheduled PRN Acetaminophen (Tylenol) 325 Mg Tab 650 MG PO Q4H PRN PRN PAIN Nitroglycerin (Nitrostat) 0.4 Mg Subl 0.4 MG SL PRN PRN PRN CHEST PAIN Allergies Coded Allergies: Cephalexin (Unverified Adverse Reaction, Mild, HEADACHE, 10/01/16) ANNA GREEN MD Dec 09, 2016 16:09
[2016-12-09] MEDS ORDERED: LEVEMIR (INSULIN DETEMIR) 1 UNITS/0.01ML SC ONE (17:00)
[2016-12-09 17:01] LABS: ALBUMIN 2.2 GM/DL (3.2-5.2); ALBUMIN/GLOBULIN RATIO 0.55 (1.00-1.93); BILIRUBIN,TOTAL 0.6 MG/DL (0.2-1.0); CALCIUM LEVEL 9.5 MG/DL (8.8-10.2); CREATININE FOR GFR 2.3 MG/DL (0.55-1.02); GLOMERULAR FILTRATION RATE 22.1 (>39); POTASSIUM SERUM 5.1 MEQ/L (3.5-5.1); TOTAL PROTEIN 6.2 GM/DL (6.4-8.2)
[2016-12-09] MEDS: MEROPENEM INJ 1 GM in D5W MINI-BAG PLUS 100 ML IV SCH ×2 (17:13→22:36)
[2016-12-09] MEDS: ESCITALOPRAM OXALATE 10 MG TAB (LEXAPRO) PO SCH (17:14)
[2016-12-09] MEDS: FERROUS SULFATE 325MG TAB PO SCH (17:14)
[2016-12-09] MEDS: PRAVASTATIN 20 MG TAB PO SCH (17:14)
[2016-12-09] MEDS: NS 1,000 ML IV SCH ×2 (17:14→22:00)
[2016-12-09] MEDS: ONDANSETRON 4MG/2ML VIAL (J2405) IV PRN (18:13)
[2016-12-09] MEDS ORDERED: DEXTROSE 50% 50 ML SYRINGE IV PRN (18:15)
[2016-12-09] MEDS ORDERED: SODIUM CHLORIDE 0.9% 1000 ML IV ONE (18:15)
[2016-12-09] MEDS ORDERED: GLUCAGON FOR INJ 1 MG VIAL (J1610) SC PRN (18:15)
[2016-12-09] MEDS ORDERED: GLUCOSE 4 GM CHEW TABLET PO PRN (18:15)
[2016-12-09] MEDS: HumaLOG INSULIN (NovoLOG) PER UNIT SC SCH ×3 (18:50→22:38)
[2016-12-09 20:00] VITALS: BP 137/77
[2016-12-09] MEDS ORDERED: LEVEMIR (INSULIN DETEMIR) 1 UNITS/0.01ML SC SCH (21:00)
[2016-12-09] MEDS ORDERED: PANTOPRAZOLE 40MG INJ (PROTONIX) (C9113) IV SCH (21:00)
[2016-12-09] MEDS ORDERED: HumaLOG INSULIN (NovoLOG) PER UNIT SC STA (22:20)
[2016-12-09] MEDS: APIXABAN 5 MG TAB (ELIQUIS) PO SCH (22:34)
[2016-12-09] MEDS: LACTOBACILLUS ACIDOPHILUS CAP (BACID) PO SCH (22:34)
[2016-12-09] MEDS: BISOPROLOL FUMARATE 5 MG TAB PO SCH (22:34)
[2016-12-09] MEDS: NYSTATIN 100,000 UNITS/GM TOPICAL PWD 15 GM TOP SCH (22:36)
[2016-12-09 23:59] VITALS: BP 151/74
[2016-12-10] MEDS ORDERED: HumaLOG INSULIN (NovoLOG) PER UNIT SC STA (02:47)
[2016-12-10] MEDS: NS 1,000 ML IV SCH ×2 (03:54→10:44)
[2016-12-10 04:00] VITALS: BP 109/68
[2016-12-10 05:40] LABS: BASO % 0.3 % (0.0-1.0); EOS # 0.1 K/mm3 (0.0-0.50); EOS % 0.9 % (0.0-3.0); LARGE UNSTAINED CELL # 0.3 K/mm3 (0.0-0.4); LARGE UNSTAINED CELL % 2.4 % (0.0-4.0); LYMPH # 0.7 K/mm3 (1.5-4.5); LYMPH % 6.3 % (24.0-44.0); MEAN CORPUSCULAR HEMOGLOBIN 28.3 pg (27.0-33.0); MEAN CORPUSCULAR HGB CONC 31.7 g/dl (32.0-36.5); MEAN CORPUSCULAR VOLUME 89.3 fl (80.0-96.0); MONO # 0.4 K/mm3 (0.0-0.8); MONO % 3.4 % (0.0-5.0); NEUTROPHILS # 9.5 K/mm3 (1.8-7.7); NEUTROPHILS % 86.7 % (36.0-66.0); PLATELET COUNT, AUTOMATED 179 k/mm3 (150-450); RED CELL DISTRIBUTION WIDTH 15.6 % (11.5-14.5); WHITE BLOOD COUNT 10.9 K/mm3 (4.0-10.0)
[2016-12-10 05:59] LABS: CALCIUM LEVEL 9.2 MG/DL (8.8-10.2); CREATININE FOR GFR 1.71 MG/DL (0.55-1.02); GLOMERULAR FILTRATION RATE 31.2 (>39); POTASSIUM SERUM 4.4 MEQ/L (3.5-5.1)
[2016-12-10] MEDS: MEROPENEM INJ 1 GM in D5W MINI-BAG PLUS 100 ML IV SCH ×3 (06:32→21:17)
[2016-12-10 07:25] VITALS: BP 122/93
[2016-12-10] MEDS: PRAVASTATIN 20 MG TAB PO SCH (08:08)
[2016-12-10] MEDS: LEVEMIR (INSULIN DETEMIR) 1 UNITS/0.01ML SC SCH (08:08)
[2016-12-10] MEDS: NYSTATIN 100,000 UNITS/GM TOPICAL PWD 15 GM TOP SCH ×2 (08:08→21:17)
[2016-12-10] MEDS: ESCITALOPRAM OXALATE 10 MG TAB (LEXAPRO) PO SCH (08:08)
[2016-12-10] MEDS: APIXABAN 5 MG TAB (ELIQUIS) PO SCH ×2 (08:09→21:15)
[2016-12-10] MEDS: LACTOBACILLUS ACIDOPHILUS CAP (BACID) PO SCH ×2 (08:09→21:15)
[2016-12-10] MEDS: FERROUS SULFATE 325MG TAB PO SCH (08:09)
[2016-12-10] MEDS: BISOPROLOL FUMARATE 5 MG TAB PO SCH ×2 (08:09→21:15)
[2016-12-10] MEDS: HumaLOG INSULIN (NovoLOG) PER UNIT SC SCH ×4 (08:10→21:16)
--- NOTE | 2016-12-10 10:18 | IPN ---
DATE: 12/10/2016 Karen is seen in progressive care unit (PCU), admitted with sepsis from a urinary source. She already has blood cultures positive for gram-negative rods on two separate blood cultures. Her diabetes has been out of control as well. She was in atrial fibrillation with rapid ventricular response on admission. Heart rate has now come down. She is afebrile. She actually feels well, better than yesterday. She has type 2 diabetes that is difficult to control. Most recent hemoglobin A1/c was 10.3%. PHYSICAL EXAMINATION: 122/93, pulse 82, respiratory rate 18, 93% oxygen saturation, 95 degrees. GENERAL APPEARANCE: Resting comfortably, no distress. LUNGS: Clear. HEART: Regular rhythm. ABDOMEN: Soft. Wounds look to be healing on yesterday's examination. EXTREMITIES: Trace peripheral edema. LABORATORY DATA: Sodium 130, potassium 4.4, BUN 39, creatinine 1.7. Glucose has been in the 400 to 500 range. Baseline creatinine is around 1.0. White count 10.9, down from 12.6, hemoglobin 11.5, platelets 179. IMPRESSION: 1. Sepsis with bacteremia secondary to urinary tract infection (UTI). Blood cultures and urine cultures are pending. She has gram-negative rods on two separate blood cultures. She has had Klebsiella I her urine, most recently on 12/12/2016. She is on meropenem, which, based on a culture from 12/04/2016 [id number] provide sufficient coverage. She looks and feels better. 2. Diabetes. Out of control. Insulin dose was adjusted. This will be difficult to control while septic. 3. Acute renal failure. Creatinine is significantly increased from baseline, which is around anywhere from 1.0 in September, it is around 1.4. Renal function has improved. She is on normal saline. We will continue hydration in the face of sepsis. 4. Atrial fibrillation. Rate has come under better control. She is anticoagulated with Eliquis. Continue her bisoprolol. 5. History of depression. Continue Lexapro to avoid selective serotonin reuptake inhibitors (SSRIs) withdrawal syndrome. 6. Hyperlipidemia. Continue pravastatin 20 mg daily. 7. Chronic abdominal wounds. Followed by wound center. These seem to be stable. ADDENDUM: I have gone through Anna Lozabai chart. Unfortunately, her medication list that was provided at [facility] is not accurate, nor complete. Her outpatient medications are: - Nexium 40 mg daily - Eliquis 5 mg twice a day - mag oxide 400 mg three capsules twice a day - furosemide 20 mg two tablets daily - Lexapro 10 mg daily - Altace 10 mg daily - bisoprolol 5 mg twice a day - NovoLog 70/30 insulin 80 units three times a day - digoxin 250 mcg daily - Altace was also listed in her office note as 5 mg daily, so it is not consistent. - pravastatin 20 mg daily - Zetia 10 mg daily At this time, her heart rate is well controlled without the digoxin. I think that we can keep her on the Detemir insulin, but she will probably go back on 70/30 upon discharge. Eliquis does not need to be adjusted at this point, as only criterion for a dose reduction is her creatinine; her age and weight still allow for 5 mg twice a day dosing. She is on a lot of magnesium at home and level has not been checked. She will probably need this. ADONAY inhibitor is on hold with acute renal failure. Furosemide is on hold with sepsis and acute renal failure.
[2016-12-10] MEDS: PANTOPRAZOLE 40MG TAB (PROTONIX) PO SCH (10:44)
[2016-12-10 11:09] LABS: MAGNESIUM LEVEL 1.4 MG/DL (1.8-2.4)
[2016-12-10 12:00] VITALS: BP 123/68
[2016-12-10 16:00] VITALS: BP 108/63
[2016-12-10 20:00] VITALS: BP 174/103
[2016-12-10] MEDS ORDERED: LEVEMIR (INSULIN DETEMIR) 1 UNITS/0.01ML SC SCH (21:00)
[2016-12-10 23:59] VITALS: BP 154/104
[2016-12-11] MEDS: NS 1,000 ML IV SCH ×3 (01:49→09:01)
[2016-12-11 04:00] VITALS: BP 189/118
[2016-12-11] MEDS: MEROPENEM INJ 1 GM in D5W MINI-BAG PLUS 100 ML IV SCH ×3 (05:08→21:21)
[2016-12-11 05:47] LABS: CALCIUM LEVEL 9.1 MG/DL (8.8-10.2); CREATININE FOR GFR 1.44 MG/DL (0.55-1.02); MAGNESIUM LEVEL 1.3 MG/DL (1.8-2.4); POTASSIUM SERUM 4.3 MEQ/L (3.5-5.1)
[2016-12-11 06:01] LABS: BASO % 0.3 % (0.0-1.0); EOS # 0.1 K/mm3 (0.0-0.50); EOS % 1.5 % (0.0-3.0); LARGE UNSTAINED CELL # 0.2 K/mm3 (0.0-0.4); LARGE UNSTAINED CELL % 2.3 % (0.0-4.0); LYMPH # 0.5 K/mm3 (1.5-4.5); LYMPH % 6.7 % (24.0-44.0); MEAN CORPUSCULAR HEMOGLOBIN 27.6 pg (27.0-33.0); MEAN CORPUSCULAR HGB CONC 30.4 g/dl (32.0-36.5); MEAN CORPUSCULAR VOLUME 90.5 fl (80.0-96.0); MONO # 0.4 K/mm3 (0.0-0.8); MONO % 4.6 % (0.0-5.0); NEUTROPHILS # 6.7 K/mm3 (1.8-7.7); NEUTROPHILS % 84.5 % (36.0-66.0); PLATELET COUNT, AUTOMATED 170 k/mm3 (150-450); RED CELL DISTRIBUTION WIDTH 15.6 % (11.5-14.5); WHITE BLOOD COUNT 7.9 K/mm3 (4.0-10.0)
[2016-12-11] MEDS: HumaLOG INSULIN (NovoLOG) PER UNIT SC SCH ×4 (06:38→21:19)
[2016-12-11] MEDS: MAG SULF 1GM/100ML (MAG RUN) 1 GM in APPROPRIATE DILUENT 1 EA IV SCH ×2 (06:39→09:01)
[2016-12-11 07:25] VITALS: BP 138/88
--- NOTE | 2016-12-11 08:52 | ECHO ---
DATE OF PROCEDURE: 12/10/2016 AGE: 71 GENDER: Female HEIGHT: 66 inches WEIGHT: 328 pounds BODY SURFACE AREA: 2.47 sq m INPATIENT: Progressive care unit (PCU), room 3228. REFERRING PHYSICIAN: Dr. Julius Green INDICATION: Abnormal EKG. Atrial fibrillation. MEASUREMENTS: 2D MEASUREMENTS: RV: 3.8 cm LV: 3.6 cm Posterior septum: 1.4 cm Posterior wall: 1.4 cm Aortic root: 3.2 cm LA: 5.4 cm LVEF: 65% DOPPLER MEASUREMENTS: AV: 3.6 m/s LVOT: 1.0 m/s LVOT diameter: 2.2 cm Mean AV systolic gradient: 26 mmHg MV-E: 150 Early mitral deceleration time: 269 ms E prime: 5.8 E/E prime ratio: 25.7 PV: 0.90 m/s Pulmonary artery acceleration time: 92 ms RVSP: 46 mmHg IVC: 1.9 cm COMMENTS: Technically challenging study in light of the patient's body habitus, but diagnostically useful information was still obtained. Underlying atrial fibrillation with somewhat rapid ventricular response. Right bundle branch block. Prominently dilated left atrium, but normal left ventricular size. Right ventricle upper limits of normal in size with at least moderate to moderately enlarged right atrium. Left ventricle (LV) wall thickness was moderately increased symmetrically. On real-time imaging from the parasternal and apical ductions, wall motion was symmetrical and normal to hyperkinetic. Severe mitral annular calcification, but leaflet motion was still visible and appeared to be adequate. No posterior systolic buckling. Three equal size aortic cusps with moderately thickened cusp edges and reduced cusp separation. Normal aortic root size. No apparent intracardiac mass or pericardial effusion. Color flow Doppler study taken from the parasternal and apical projections showed trace aortic, very mild mitral, and mild to moderate tricuspid insufficiency. Guided continuous wave Doppler of her aortic valve and pulsed Doppler study of her LV outflow tract taken from the apical long axis and five-chamber projections showed a significantly increased peak systolic velocity and mean gradient with dimensionless index of 0.27 - all in keeping with moderately severe calcific aortic stenosis. Pulsed and continuous wave Doppler of her LV inflow tract taken from the apical four-chamber projection showed normal diastolic filling velocities against mitral stenosis. Early mitral deceleration time was prolonged. Tissue Doppler of her mitral annulus allowed our estimation of her mean left atrial pressure (significantly increased). Pulsed and continuous wave Doppler of her pulmonary trunk showed a normal peak systolic velocity against right ventricular (RV) outflow tract obstruction. Her pulmonary artery acceleration time was abbreviated, consistent with an elevated pulmonary vascular resistance. Guided continuous wave Doppler of her tricuspid valve allowed our estimation of her right ventricular systolic pressure (at least moderately increased). Her inferior vena cava was mildly dilated with reduced respiratory collapse, consistent with an elevated central venous pressure and degree of right heart failure. CONCLUSIONS: Technically challenging study in light of the patient's body habitus. Moderate concentric left ventricle hypertrophy with hyperkinetic wall motion. Prominently dilated left atrium with Doppler evidence of an impairment of LV diastolic function and elevated mean left atrial pressure (approximately 25 mmHg). Right ventricle upper limits of normal in size with Doppler evidence of least moderate pulmonary hypertension. Moderately dilated right atrium and mildly dilated inferior vena cava with reduced respiratory collapse, consistent with an elevated central venous pressure. Moderately severe calcific aortic stenosis with trace insufficiency. Severe mitral annular calcification without significant inflow tract obstruction and only very mild insufficiency.
[2016-12-11] MEDS: PANTOPRAZOLE 40MG TAB (PROTONIX) PO SCH (09:02)
[2016-12-11] MEDS: LEVEMIR (INSULIN DETEMIR) 1 UNITS/0.01ML SC SCH ×2 (09:02→21:18)
[2016-12-11] MEDS: ESCITALOPRAM OXALATE 10 MG TAB (LEXAPRO) PO SCH (09:02)
[2016-12-11] MEDS: APIXABAN 5 MG TAB (ELIQUIS) PO SCH ×2 (09:02→21:19)
[2016-12-11] MEDS: BISOPROLOL FUMARATE 5 MG TAB PO SCH ×2 (09:03→21:19)
[2016-12-11] MEDS: LACTOBACILLUS ACIDOPHILUS CAP (BACID) PO SCH ×2 (09:03→21:19)
[2016-12-11] MEDS: PRAVASTATIN 20 MG TAB PO SCH (09:04)
[2016-12-11] MEDS: NYSTATIN 100,000 UNITS/GM TOPICAL PWD 15 GM TOP SCH ×2 (09:04→21:20)
[2016-12-11] MEDS: FERROUS SULFATE 325MG TAB PO SCH (09:04)
[2016-12-11 12:00] VITALS: BP 144/78
--- NOTE | 2016-12-11 12:54 | IPN ---
DATE: 12/11/2016 Karen is seen in the progressive care unit (PCU). She had been in sepsis and was growing out Klebsiella from blood and urine cultures sensitive to the meropenem that she is currently receiving. Diabetes is still in less than optimal control. Her heart has improved and her sepsis seems to be coming under control. Vital signs have been stable. She has a good urine output. PHYSICAL EXAMINATION: Blood pressure 144/78, pulse 75, respiratory rate 22, 95% oxygen saturation. GENERAL APPEARANCE: Resting comfortably, in no distress. She has been out of the bed earlier today, still drowsy when I saw her. No jugular venous distention (JVD). LUNGS: Decreased breath sounds but clear. HEART: Regular rhythm, 1/6 systolic ejection murmur. ABDOMEN: Soft, nontender, no masses. Did not examine her abdominal wounds today. No peripheral edema. LABORATORY DATA: CBC: White count down to 7.9, hemoglobin is 12.1. Sodium 134, potassium 4.3, BUN 52, creatinine 1.4, glucose has been in the 400s, magnesium 1.3. Cultures as noted above. IMPRESSION: 1. Sepsis, secondary to Klebsiella urinary tract infection (UTI) and Klebsiella bacteremia. Continue her meropenem. She is allergic to CEPHALOSPORINS so we cannot use ceftriaxone, which would be a good drug for this. It is sensitive to quinolones and we probably could put her on some oral Cipro in a day or two after her sepsis has been treated with the meropenem for a few more days. 2. Diabetes, uncontrolled. Insulin dose is adjusted. Outpatient control is loose. 3. Acute renal failure. Creatinine is back to baseline. Reduce intravenous (IV) fluid. 4. Atrial fibrillation. Rate is under control. Continue Eliquis, continue bisoprolol. 5. History of depression. Continue her current regimen. 6. Hyperlipidemia. Continue pravastatin. 7. Hypomagnesemia. Magnesium runs have been ordered. I expect she will be in the hospital at least until the middle of next week.
[2016-12-11] MEDS: KCL 20MEQ in NS 1000ML 1,000 ML IV SCH (13:19)
[2016-12-11 16:00] VITALS: BP 127/74
--- NOTE | 2016-12-11 16:53 | EDDOCDS ---
Physician Documentation [facility] Name: Karen Painter Age: 71 yrs Sex: Female : 1945 Arrival Date: 12/09/2016 Time: 03:43 Bed Admit Hold Private MD: Jann Sherman E. Disposition: 12/09/16 07:55 Hospitalization ordered by Julius Green for Inpatient Admission. Preliminary diagnosis are Urinary tract infection, site not specified, Chronic atrial fibrillation. - Bed requested for PCU. - Status is Inpatient Admission. bcj - Condition is Stable. - Problem is new. - Symptoms have improved. Historical: - Allergies: nkda, but reports headache with keflex; - Home Meds: 1. Altace 10 mg Oral cap 1 cap once daily 2. bisoprolol fumarate 5 mg oral tab 1 tab twice daily 3. Eliquis 5 mg oral tab 1 tab 2 times per day 4. ferrous sulfate 325 mg (65 mg iron) Oral cpER 325 mg daily 5. Humalog 100 unit/mL Sub-Q soln sliding scale at meals and bedtime 6. Lasix 40 mg Oral tab 1 tab once daily 7. Levemir 100 unit/mL subcutaneous soln 70 unit three times a day 8. Lexapro 10 mg Oral tab 1 tab once daily 9. magnesium oxide 400 mg Oral cap 400 mg twice a day 10. Nexium 40 mg Oral cpDR 1 cap once daily 11. Nitrostat 0.4 mg SL subl 1 tab every 5 minutes 12. Pravachol 20 mg Oral tab 1 tab once daily 13. prolia 60mg q 6 months 14. Zetia 10 mg Oral tab 1 tab once daily - PMHx: Atrial Fib; CHF; COPD; hyperlipidemia; Diabetes - IDDM: controlled; Kidney stones; Hypertension; reflux; Osteoporosis; renakl insufficiency; venous insufficiency; - Social history: Smoking status: Patient states former smoker of tobacco. No barriers to communication noted, The patient speaks fluent Hebrew, Speaks appropriately for age. - Family history: Not pertinent. - : The pt / caregiver states he / she is on anticoagulants: Eliquis Home medication list is obtained from [employer] import data. - Exposure Risk Screening:: None identified. Vital Signs: 12/09 03:53 BP 151 / 99 RA Sitting (auto/reg); Pulse 126 MON; Resp 24 S; Temp 99.4(TE); Pulse Ox cln 94% on R/A; Weight 148.78 kg / 328 lbs (R); Height 5 ft. 4 in. (162.56 cm) (R); Pain 0/10; 05:13 BP 139 / 78 (auto/); ko2 05:16 Pulse 128 MON; Pulse Ox 93% ; ko2 05:42 Pulse 132 MON; Pulse Ox 95% ; ko2 05:43 BP 123 / 58 (auto/); ko2 06:12 Pulse 120 MON; Pulse Ox 94% ; ko2 06:13 BP 112 / 69 (auto/); ko2 06:43 BP 122 / 74 (auto/); ko2 06:43 Pulse 114 MON; Pulse Ox 94% ; ko2 08:20 Pulse 142 MON; Pulse Ox 97% ; bcj 08:24 BP 123 / 75 (auto/); bcj 08:24 Pulse Ox 97% ; bcj 15:08 BP 122 / 58; Pulse 106; Resp 16; Temp 96.4(O); Pulse Ox 95% on R/A; Pain 4/10; bcj 03:53 Body Mass Index 56.30 (148.78 kg, 162.56 cm) cln MDM: 04:34 ECG WITH READING ER PHYS+CARDIAG ordered. EDMS 04:49 Fraud Manager/Pulse Ox/q 30 min VS ordered. nov 04:49 IV Saline Lock ordered. nov 04:49 Rhythm Strip to chart ordered. nov 04:49 Undress patient appropriately for examination ordered. nov 04:50 Basic Metabolic Profile Ordered. EDMS 04:50 CBC with Diff Ordered. EDMS 04:50 Cardiac Injury Profile Ordered. EDMS 04:50 Troponin Ordered. EDMS 05:00 Financial registration complete. hs2 05:03 [facility] Payment Agreement was scanned into [employer] and attached to record. hs2 05:04 Kaufman ordered. cs11 05:04 NS 0.9% 500 ml IV at bolus once ordered. cs11 05:06 Urinalysis Ordered. EDMS 05:06 Urine Culture Ordered. EDMS 05:06 Lactic Acid (Stern tube on ice) Ordered. EDMS 05:06 Chest, 1 View Ordered. EDMS 05:07 -Blood Culture (Adults Only), peripheral from different site, or from device/port/PICC cs11 etc. if present ordered. 05:08 -Blood Culture Ordered. EDMS 05:20 -Blood Culture (Adults Only), peripheral from different site, or from device/port/PICC ml3 etc. if present complete. 05:21 BLOOD CULTURES Ordered. EDMS 05:24 LIVER PROFILE Ordered. EDMS 05:24 THYROID PROFILE Ordered. EDMS 05:47 CBC with Diff Reviewed. cs11 06:20 Basic Metabolic Profile Reviewed. cs11 06:20 Lactic Acid (Stern tube on ice) Reviewed. cs11 06:20 LIVER PROFILE Reviewed. cs11 06:20 Cardiac Injury Profile Reviewed. cs11 06:20 Troponin Reviewed. cs11 06:20 THYROID PROFILE Reviewed. cs11 06:23 Insulin Regular Human 20 units IVP once ordered. cs11 06:23 Accucheck ordered. cs11 06:24 NS 0.9% 500 ml IV at bolus once ordered. cs11 06:59 Fingerstick Blood Sugar Ordered. EDMS 07:07 Urinalysis Reviewed. sd1 07:07 Fingerstick Blood Sugar Reviewed. sd1 07:08 BED REQUEST+ADM ordered. EDMS 07:32 cefTRIAXone 1 grams IVPB once over 30 mins; dilute in 50mL of NS or D5W ordered. sd1 08:23 Written Provider Order was scanned into [employer] and attached to record. lbd 08:41 Written Provider Order was scanned into [employer] and attached to record. lbd 08:43 Chest, 1 view Ordered. EDMS 08:44 ARTERIAL BLOOD GAS Ordered. EDMS 08:44 CARDIAC INJURY PROFILE Ordered. EDMS 08:44 CARDIAC INJURY PROFILE Ordered. EDMS 08:44 TROPONIN Ordered. EDMS 08:44 TROPONIN Ordered. EDMS 08:45 PHYSICAL THERAPY EVAL & TREAT ordered. EDMS 08:46 Admission / Observation Status ordered. EDMS 08:46 ECHOCARD,DOPPLER/COLOR FLOW ordered. EDMS 08:46 CONSISTENT CARBOHYDRATES ordered. EDMS 09:05 Metoprolol 2.5 mg IVP once; Hold for SBP < 100 or HR < 60. ordered. bcj 09:05 Bisoprolol 5 mg PO once ordered. bcj 09:05 Levemir - Insulin Detemir 100 unit/mL 70 units Sub-Q once ordered. bcj 12:13 Fingerstick Blood Sugar Ordered. EDMS 14:54 T-Sheet-- Draft Copy was scanned into [employer] and attached to record. gb 12/10 09:03 ECG/EKG was scanned into [employer] and attached to record. Point of Care Testing: Blood Glucose: 12/09 06:53 Blood Glucose: 363 mg/dL; ko2 Ranges: Administered Medications: 05:36 Drug: NS 0.9% 500 ml [sodium chloride 0.9 % intravenous solution] Route: IV; Rate: ko2 bolus; Site: left forearm; 06:25 Drug: NS 0.9% 500 ml [sodium chloride 0.9 % intravenous solution] Route: IV; Rate: ko2 bolus; Site: left forearm; 06:28 Drug: Insulin Regular Human 20 units [insulin regular human 100 unit/mL injection ko2 solution (0.2 mL)] {Co-Signature: dheeraj (Aixa Yin RN).} Route: IVP; Site: left forearm; 07:47 Drug: cefTRIAXone 1 grams [ceftriaxone 1 gram solution for injection] Route: IVPB; bcj Infused Over: 30 mins; Site: left antecubital; 09:00 Drug: Metoprolol 2.5 mg [metoprolol 5 mg/5 mL intravenous solution (2.5 mL)] Route: bcj IVP; Site: left antecubital; 09:06 Drug: Bisoprolol 5 mg [bisoprolol fumarate 5 mg tablet (1 tabs)] Route: PO; bcj 09:06 Drug: Levemir - Insulin Detemir 70 units [insulin detemir 100 unit/mL subcutaneous bcj solution (0.7 mL)] {Co-Signature: eze (Marimar Burns RN).} Route: Sub-Q; Site: left upper arm; Signatures: Dispatcher [facility] Li Andres MD MD sd1 Stacy Peters, Informaticist Unit lbd Mauro Quintana RN Aixa Abad RN Maria D Feng, Reg Reg gb Bobby Arguello, Informaticist Unit ml3 Billy Rahman, DO cs11 Amy Sun RN RN ko2 Barrington Bradford RN RN [facility] Isabel Rosenthal, Reg Reg hs2 Aixa Burns RN [id number] The chart was reviewed and I authenticate all verbal orders and agree with the evaluation and treatment provided.Corrections: (The following items were deleted from the chart) 05:22 05:06 THYROID PROFILE+LAB ordered. EDMS EDMS 05:22 05:06 LIVER PROFILE+LAB ordered. EDMS EDMS Attachments: 05:03 [facility] Payment Agreement hs2 08:23 Written Provider Order lbd 08:41 Written Provider Order lbd 14:54 T-Sheet-- Draft Copy gb 12/10 09:03 ECG/EKG gb Chart Complete MTDD
--- NOTE | 2016-12-11 16:54 | EDDOCDS ---
Nurse's Notes [facility] Name: Eddie Painter Age: 71 yrs Sex: Female : 1945 Arrival Date: 12/09/2016 Time: 03:43 Bed Admit Hold Private MD: Jann Sherman E. Diagnosis: Urinary tract infection, site not specified;Chronic atrial fibrillation Presentation: 12/09 03:47 Presenting complaint: EMS states: weakness, pt fell at home with no injury. This is the ko2 second day in a row she has fallen and been unable to lift herself up. Pt did not want to come but EMS insisted due to pts inability to stand up and care for self. Suicide/Homicide risk assessment- the patient denies having any suicidal and/or homicidal ideations and does not present with any other emotional, behavioral or mental health complaints. Status: Patient is not a sales service representative or dependent. Transition of care: patient was not received from another setting of care. Care prior to arrival: See EMS report. 03:47 Acuity: VIET Level 4 ko2 03:47 Method Of Arrival: Ambulance ko2 04:34 Adult Sepsis Screening: The patient does not have new or worsening altered mentation. ko2 Patient's respiratory rate is less than 22. Systolic blood pressure is greater than 100. Patient has a qSOFA score of 0- Negative Sepsis Screen. 04:43 Acuity level changed due to complexity of care. ko2 04:43 Acuity: VIET Level 3 ko2 Triage Assessment: 03:57 General: Appears in no apparent distress. General: Appears obese, unkempt, Behavior is. ko2 Pain: Denies pain. The patient is triaged at the bedside. See Assessment in Nurses Notes section of ED record. Neurological: No deficits noted. Respiratory: Airway is patent Respiratory effort is even, unlabored, Respiratory pattern is regular, symmetrical. GI: Abdomen is obese. Derm: stool on feet. Musculoskeletal: pt states can't stand up. Historical: - Allergies: nkda, but reports headache with keflex; - Home Meds: 1. Altace 10 mg Oral cap 1 cap once daily 2. bisoprolol fumarate 5 mg oral tab 1 tab twice daily 3. Eliquis 5 mg oral tab 1 tab 2 times per day 4. ferrous sulfate 325 mg (65 mg iron) Oral cpER 325 mg daily 5. Humalog 100 unit/mL Sub-Q soln sliding scale at meals and bedtime 6. Lasix 40 mg Oral tab 1 tab once daily 7. Levemir 100 unit/mL subcutaneous soln 70 unit three times a day 8. Lexapro 10 mg Oral tab 1 tab once daily 9. magnesium oxide 400 mg Oral cap 400 mg twice a day 10. Nexium 40 mg Oral cpDR 1 cap once daily 11. Nitrostat 0.4 mg SL subl 1 tab every 5 minutes 12. Pravachol 20 mg Oral tab 1 tab once daily 13. prolia 60mg q 6 months 14. Zetia 10 mg Oral tab 1 tab once daily - PMHx: Atrial Fib; CHF; COPD; hyperlipidemia; Diabetes - IDDM: controlled; Kidney stones; Hypertension; reflux; Osteoporosis; renakl insufficiency; venous insufficiency; - Social history: Smoking status: Patient states former smoker of tobacco. No barriers to communication noted, The patient speaks fluent Occitan, Speaks appropriately for age. - Family history: Not pertinent. - : The pt / caregiver states he / she is on anticoagulants: Eliquis Home medication list is obtained from [employer] import data. - Exposure Risk Screening:: None identified. Screenin:35 Screening information is obtained from the patient. Fall risk: At risk due to age, ko2 prior history of falls, The following interventions are performed due to a positive Fall Risk Screen: Fall Risk is added to Special Handling on the patient Summary Screen. A Fall Risk Bracelet was applied to the patient. Side Rails are placed in the up position. A Call Jensen is given with instruction to call for help when getting out of bed. Fall Alert bracelet is placed on the patient. Assistance ADL's: requires no assistance with activities of daily living. Abuse/DV Screen: The patient / caregiver reports he/she is: not in a situation that causes fear, pain or injury. Nutritional screening: No deficits noted. Advance Directives: Currently, there is no health care proxy. home support is inadequate. Assessment: 03:59 General: See triage assessment. ko2 04:40 General: pt had stool all over gown, legs and feet. Pt cleaned up. Dressings on abdomen ko2 due to abscesses that pt states is being taken care of by Dr. Goetz. 05:02 General: Appears in no apparent distress, Behavior is appropriate for age, cooperative. ko2 Pain: Denies pain. Neurological: Level of Consciousness is awake, alert. Cardiovascular: Rhythm is atrial fibrillation with rapid ventricular response. Respiratory: Airway is patent Respiratory effort is even, unlabored. Derm: Skin is normal, Abscess located on abdomen. 06:17 General: Appears in no apparent distress, Behavior is appropriate for age, cooperative. ko2 Pain: Denies pain. Neurological: Level of Consciousness is awake, alert. Cardiovascular: Rhythm is atrial fibrillation. Respiratory: Airway is patent Respiratory effort is even, unlabored. Derm:. 07:51 General: Appears in no apparent distress, comfortable, Behavior is cooperative. Pain: bcj Denies pain. Cardiovascular: Rhythm is atrial fibrillation. Derm: Skin is pink, warm & dry. 11:14 General: Appears in no apparent distress, comfortable, Behavior is cooperative. Pain: bcj Denies pain. Cardiovascular: Rhythm is atrial fibrillation with rapid ventricular response. Derm: Skin is pink, warm & dry. 15:27 General: Appears in no apparent distress, comfortable, Behavior is cooperative. Pain: bcj Location: right leg and left leg Pain currently is 4 out of 10 on a pain scale. Cardiovascular: Rhythm is atrial fibrillation with rapid ventricular response. Derm: Skin is pink, warm & dry. Social Work Consult: 06:19 Social Work Note: Met with PT to discuss concerns for her home. PT states she has a jfb lady come to her home every Monday to clean and do laundry and that her son will occasionally help her with things. Attempted to discuss report that her home wasn't clean and that she herself was not but she was focused on "when will I get upstairs. I get so bored and uncomfortable lying her" Placed to call to her son Eric [phone] and left requesting he call to discuss. 07:52 Social Work Note: Per ALEX Kennedy, Spoke with Pt's Son. According to Son, Pt has been rb declining services in her home and help from family. Pt does have someone come in every Monday for house keeping and laundry. Family believes she needs assisted living accommodations. Vital Signs: 03:53 BP 151 / 99 RA Sitting (auto/reg); Pulse 126 MON; Resp 24 S; Temp 99.4(TE); Pulse Ox cln 94% on R/A; Weight 148.78 kg (R); Height 5 ft. 4 in. (162.56 cm) (R); Pain 0/10; 05:13 BP 139 / 78 (auto/); ko2 05:16 Pulse 128 MON; Pulse Ox 93% ; ko2 05:42 Pulse 132 MON; Pulse Ox 95% ; ko2 05:43 BP 123 / 58 (auto/); ko2 06:12 Pulse 120 MON; Pulse Ox 94% ; ko2 06:13 BP 112 / 69 (auto/); ko2 06:43 BP 122 / 74 (auto/); ko2 06:43 Pulse 114 MON; Pulse Ox 94% ; ko2 08:20 Pulse 142 MON; Pulse Ox 97% ; bcj 08:24 BP 123 / 75 (auto/); bcj 08:24 Pulse Ox 97% ; bcj 15:08 BP 122 / 58; Pulse 106; Resp 16; Temp 96.4(O); Pulse Ox 95% on R/A; Pain 4/10; bcj 03:53 Body Mass Index 56.30 (148.78 kg, 162.56 cm) cln Vitals: 04:34 Log In Time N/A - ambulance arrival. ko2 ED Course: 03:44 Patient visited by Bobby Arguello, Assembler Carbon Brushes. ml3 03:44 Jann Sherman is Private Physician. ml3 03:44 Amy Sun,RN is Primary Nurse. ml3 03:44 Patient moved to Waiting ml3 03:44 Patient moved to 18 ml3 03:50 Triage Initiated ko2 03:54 Patient visited by Blanca Lozano PCA. cln 03:54 Pt greeted and oriented to ED. Patient advised of names of staff involved in care, cln location of call jensen, wait times and NPO status. Patient has correct armband on for positive identification. Bed in low position. Call light in reach. Side rails up X 1. 04:36 Melida Abarca DO is Attending Physician. cs11 04:36 Patient visited by Melida Abarca DO. cs11 04:49 Patient visited by Blanca Lozano PCA. cln 04:49 EKG done. (by ED staff). Reviewed by Melida Abarca DO. cln 05:00 Inserted saline lock: 20 gauge in left forearm and blood collected. The patient ko2 tolerated the procedure well. 05:01 Basic Metabolic Profile Sent. ko2 05:01 CBC with Diff Sent. ko2 05:01 Cardiac Injury Profile Sent. ko2 05:02 Troponin Sent. ko2 05:03 The patient / caregiver is instructed regarding the plan of care and ED course. ko2 05:03 [facility] Payment Agreement was scanned into [employer] and attached to record. hs2 05:27 Lactic Acid (Stern tube on ice) Sent. ko2 05:27 Urine Culture Sent. ko2 05:27 Urinalysis Sent. ko2 05:27 THYROID PROFILE Sent. ko2 05:27 LIVER PROFILE Sent. ko2 05:27 Kaufman cath inserted 18 Fr. Balloon inflated. To gravity drainage. Urine specimen ko2 collected. returned cloudy urine. 05:36 -Blood Culture Sent. ko2 05:37 Patient visited by Amy Sun RN. ko2 06:00 Notified attending ED physician of Critical lab value. Dr Abarca notified of glucose ko2 530 and lactic acid of 2.3. 06:17 Patient visited by Amy Sun RN. ko2 06:53 Patient visited by Amy Sun RN. ko2 06:53 Patient visited by mAy Sun RN. ko2 06:54 Attending Physician role handed off by Melida Abarca DO sd1 06:54 Li Andres MD is Attending Physician. sd1 07:47 Patient visited by Saji Rouse PCA. jlf 07:51 No apparent distress. Resting quietly. Awaiting bed assignment. bcj 07:51 IV is intact. bcj 07:52 Patient visited by Mauro Quintana, JOSUE. bcj 07:55 Julius Green is Hospitalizing Provider. sd1 08:20 No apparent distress. Resting quietly. Awaiting bed assignment. bcj 08:20 Inserted saline lock: 20 gauge in left forearm. bcj 08:23 Written Provider Order was scanned into [employer] and attached to record. lbd 08:27 Chest, 1 View Returned. EDMS 08:41 Written Provider Order was scanned into [employer] and attached to record. lbd 08:52 Primary Nurse role handed off by Amy Sun RN jc4 08:53 Mauro Quintana, JOSUE is Primary Nurse. jc4 09:06 EKG-ADULT Returned. EDMS 09:10 ARTERIAL BLOOD GAS Sent. cs15 09:21 Patient moved to Admit Hold jc4 09:53 Chest, 1 view Returned. EDMS 11:17 Patient visited by Mauro Quintana RN. bcj 14:54 T-Sheet-- Draft Copy was scanned into [employer]. and attached to record. gb 15:09 Patient visited by Mauro Quintana RN. bcj 15:27 No apparent distress. Resting quietly. Awaiting bed assignment. bcj 15:27 IV is intact. No procedures done that require assistance. bcj 15:31 Patient visited by Mauro Quintana RN. bcj 12/10 09:03 ECG/EKG was scanned into [employer] and attached to record. gb Administered Medications: 12/09 05:36 Drug: NS 0.9% 500 ml [sodium chloride 0.9 % intravenous solution] Route: IV; Rate: ko2 bolus; Site: left forearm; 06:25 Drug: NS 0.9% 500 ml [sodium chloride 0.9 % intravenous solution] Route: IV; Rate: ko2 bolus; Site: left forearm; 06:28 Drug: Insulin Regular Human 20 units [insulin regular human 100 unit/mL injection ko2 solution (0.2 mL)] {Co-Signature: dheeraj (Aixa Yin RN).} Route: IVP; Site: left forearm; 07:47 Drug: cefTRIAXone 1 grams [ceftriaxone 1 gram solution for injection] Route: IVPB; bcj Infused Over: 30 mins; Site: left antecubital; 09:00 Drug: Metoprolol 2.5 mg [metoprolol 5 mg/5 mL intravenous solution (2.5 mL)] Route: bcj IVP; Site: left antecubital; 09:06 Drug: Bisoprolol 5 mg [bisoprolol fumarate 5 mg tablet (1 tabs)] Route: PO; bcj 09:06 Drug: Levemir - Insulin Detemir 70 units [insulin detemir 100 unit/mL subcutaneous bcj solution (0.7 mL)] {Co-Signature: eze (Marimar Burns RN).} Route: Sub-Q; Site: left upper arm; Point of Care Testing: Blood Glucose: 06:53 Blood Glucose: 363 mg/dL; ko2 Ranges: RT: 09:10 ABG's drawn from left radial artery allens test done and positive pressure held for 5 cs15 minutes no bleeding noted pressure bandage applied specimen sent pt. tolerated well. Order Results: Lab Order: Basic Metabolic Profile; SPEC'M 12/09/16 04:59 Test: GLUCOSE, FASTING; Value: 530; Range: 83-110; Abnormal: Above upper panic limits; Units: MG/DL; Status: F Test: BLOOD UREA NITROGEN; Value: 39; Range: 7-18; Abnormal: Above high normal; Units: MG/DL; Status: F Test: CREATININE FOR GFR; Value: 2.08; Range: 0.55-1.02; Abnormal: Above high normal; Units: MG/DL; Status: F Test: GLOMERULAR FILTRATION RATE; Value: 24.8; Range: >39; Abnormal: Below low normal; Status: F Test: SODIUM LEVEL; Value: 133; Range: 136-145; Abnormal: Below low normal; Units: MEQ/L; Status: F Test: POTASSIUM SERUM; Value: 4.1; Range: 3.5-5.1; Units: MEQ/L; Status: F Test: CHLORIDE LEVEL; Value: 100; Range: 98-107; Units: MEQ/L; Status: F Test: CARBON DIOXIDE LEVEL; Value: 19; Range: 21-32; Abnormal: Below low normal; Units: MEQ/L; Status: F Test: ANION GAP; Value: 14; Range: 8-16; Units: MEQ/L; Status: F Test: CALCIUM LEVEL; Value: 9.9; Range: 8.8-10.2; Units: MG/DL; Status: F Test Note: ; Units are mL/min/1.73 m2 Chronic Kidney Disease Staging per NKF: Stage I & II GFR >=60 Normal to Mildly Decreased Stage III GFR 30-59 Moderately Decreased Stage IV GFR 15-29 Severely Decreased Stage V GFR <15 Very Little GFR Left ESRD GFR <15 on FRUIT BUYING GRADER Lab Order: CBC with Diff; SPEC'M 12/09/16 04:59 Test: WHITE BLOOD COUNT; Value: 12.6; Range: 4.0-10.0; Abnormal: Above high normal; Units: K/mm3; Status: F Test: RED BLOOD COUNT; Value: 4.62; Range: 4.00-5.40; Units: M/mm3; Status: F Test: HEMOGLOBIN; Value: 12.9; Range: 12.0-16.0; Units: g/dl; Status: F Test: HEMATOCRIT; Value: 41.4; Range: 36.0-47.0; Units: %; Status: F Test: MEAN CORPUSCULAR VOLUME; Value: 89.5; Range: 80.0-96.0; Units: fl; Status: F Test: MEAN CORPUSCULAR HEMOGLOBIN; Value: 28.0; Range: 27.0-33.0; Units: pg; Status: F Test: MEAN CORPUSCULAR HGB CONC; Value: 31.3; Range: 32.0-36.5; Abnormal: Below low normal; Units: g/dl; Status: F Test: RED CELL DISTRIBUTION WIDTH; Value: 15.8; Range: 11.5-14.5; Abnormal: Above high normal; Units: %; Status: F Test: PLATELET COUNT, AUTOMATED; Value: 207; Range: 150-450; Units: k/mm3; Status: F Test: NEUTROPHILS %; Value: 94.6; Range: 36.0-66.0; Abnormal: Above high normal; Units: %; Status: F Test: LYMPH %; Value: 1.7; Range: 24.0-44.0; Abnormal: Below low normal; Units: %; Status: F Test: MONO %; Value: 2.7; Range: 0.0-5.0; Units: %; Status: F Test: EOS %; Value: 0.2; Range: 0.0-3.0; Units: %; Status: F Test: BASO %; Value: 0.2; Range: 0.0-1.0; Units: %; Status: F Test: LARGE UNSTAINED CELL %; Value: 0.5; Range: 0.0-4.0; Units: %; Status: F Test: NEUTROPHILS #; Value: 12.0; Range: 1.8-7.7; Abnormal: Above high normal; Units: K/mm3; Status: F Test: LYMPH #; Value: 0.2; Range: 1.5-4.5; Abnormal: Below low normal; Units: K/mm3; Status: F Test: MONO #; Value: 0.3; Range: 0.0-0.8; Units: K/mm3; Status: F Test: EOS #; Value: 0.0; Range: 0.0-0.50; Units: K/mm3; Status: F Test: BASO #; Value: 0.0; Range: 0.0-0.2; Units: K/mm3; Status: F Test: LARGE UNSTAINED CELL #; Value: 0.1; Range: 0.0-0.4; Units: K/mm3; Status: F Lab Order: Cardiac Injury Profile; [facility] 12/09/16 04:59 Test: CPK CREATINE PHOSPHOKINASE; Value: 33; Range: 26-192; Units: U/L; Status: F Test: CK-MB VALUE MASS; Value: 1.0; Range: 0.0-3.6; Units: NG/ML; Status: F Test: MB/CK RELATIVE INDEX; Value: 3.03; Range: < OR =4; Status: F Test Note: ; DIAGNOSIS CRITERIA MMB ng/ml Relative Index (RI) NON-AMI < or = 5 N/A STERN ZONE > 5 < or = 4 AMI > 5 > 4 Lab Order: Troponin; [facility] 12/09/16 04:59 Test: TROPONIN I; Value: < 0.02; Range: < 0.10; Units: NG/ML; Status: F Test Note: ; Troponin I Reference Interval for [employer] LOCI: 99th Percentile= 0.00-0.045 ng/ml Risk Stratification: <= 0.10 ng/ml Decreased Risk for Adverse Clinical Events. 0.10-1.50 ng/ml Increased Risk for Adverse Clinical Events. Evaluation of additional criterion and/or repeat testing in 2-6 hours is suggested to rule out myocardial damage. >= 1.50 ng/ml Indicative of Myocardial Injury. Lab Order: Urinalysis; [facility] 12/09/16 05:23 Test: APPEARANCE, URINE; Value: TURBID; Range: CLEAR; Abnormal: Above high normal; Status: F Test: COLOR, URINE; Value: YELLOW; Range: YELLOW; Status: F Test: PH,URINE; Value: 5.0; Range: 5.0-9.0; Units: UNITS; Status: F Test: SPECIFIC GRAVITY URINE AUTO; Value: 1.016; Range: 1.002-1.035; Status: F Test: PROTEIN, URINE AUTO; Value: 2+; Range: NEGATIVE; Abnormal: Above high normal; Units: mg/dL; Status: F Test: GLUCOSE, URINE (UA) AUTO; Value: 3+; Range: NEGATIVE; Abnormal: Above high normal; Units: mg/dL; Status: F Test: KETONE, URINE AUTO; Value: NEGATIVE; Range: NEGATIVE; Units: mg/dL; Status: F Test: UROBILINOGEN, URINE AUTO; Value: 0.2; Range: 0.0-2.0; Units: mg/dL; Status: F Test: BILIRUBIN, URINE AUTO; Value: NEGATIVE; Range: NEGATIVE; Status: F Test: NITRITE, URINE AUTO; Value: NEGATIVE; Range: NEGATIVE; Status: F Test: LEUKOCYTE ESTERASE, URINE AUTO; Value: 2+; Range: NEGATIVE; Abnormal: Above high normal; Status: F Test: BLOOD, URINE BLOOD; Value: 2+; Range: NEGATIVE; Abnormal: Above high normal; Status: F Test: WBC, URINE AUTO; Value: TNTC; Range: 0-3; Abnormal: Above high normal; Units: /HPF; Status: F Test: RBC, URINE AUTO; Value: 32; Range: 0-3; Abnormal: Above high normal; Units: /HPF; Status: F Test: BACTERIA, URINE AUTO; Value: 2+; Range: NEGATIVE; Abnormal: Above high normal; Status: F Test: SQUAMOUS EPITHELIAL CELL UR AU; Value: 0; Range: 0-6; Units: /HPF; Status: F Test: HYALINE CAST, URINE AUTO; Value: 0; Range: 0-1; Units: /LPF; Status: F Lab Order: Lactic Acid (Stern tube on ice); SPEC'M 12/09/16 05:23 Test: LACTIC ACID LEVEL, LACTATE; Value: 2.3; Range: 0.4-2.0; Abnormal: Above upper panic limits; Units: MMOL/L; Status: F Lab Order: LIVER PROFILE; SPEC'M 12/09/16 04:59 Test: AST/SGOT; Value: 10; Range: 15-37; Abnormal: Below low normal; Units: U/L; Status: F Test: ALT/SGPT; Value: 12; Range: 12-78; Units: U/L; Status: F Test: ALKALINE PHOSPHATASE; Value: 148; Range: 45-117; Abnormal: Above high normal; Units: U/L; Status: F Test: BILIRUBIN,TOTAL; Value: 0.9; Range: 0.2-1.0; Units: MG/DL; Status: F Test: BILIRUBIN,DIRECT; Value: 0.5; Range: 0.0-0.2; Abnormal: Above high normal; Units: MG/DL; Status: F Test: TOTAL PROTEIN; Value: 6.8; Range: 6.4-8.2; Units: GM/DL; Status: F Test: ALBUMIN; Value: 2.5; Range: 3.2-5.2; Abnormal: Below low normal; Units: GM/DL; Status: F Test: ALBUMIN/GLOBULIN RATIO; Value: 0.58; Range: 1.00-1.93; Abnormal: Below low normal; Status: F Lab Order: THYROID PROFILE; [facility] 12/09/16 04:59 Test: T UPTAKE; Value: 37; Range: 30-39; Units: %; Status: F Test: THYROXINE (T4); Value: 8.0; Range: 4.5-12.0; Units: UG/DL; Status: F Test: FREE THYROXINE INDEX; Value: 3.0; Range: 1.3-4.8; Units: %; Status: F Test: THYROID STIMULATING HORMONE; Value: 0.727; Range: 0.358-3.740; Units: uIU/ML; Status: F Lab Order: Fingerstick Blood Sugar; [facility]12/09/16 06:51 Test: BEDSIDE GLUCOSE; Value: 363; Range: 83-110; Abnormal: Above high normal; Units: MG/DL; Status: F Lab Order: ARTERIAL BLOOD GAS; [facility] 12/09/16 09:09 Test: ABG pH (ARTERIAL); Value: 7.410; Range: 7.350-7.450; Units: UNITS; Status: F Test: ABG PARTIAL PRESSURE CO2; Value: 25.5; Range: 35.0-45.0; Abnormal: Below low normal; Units: mmHg; Status: F Test: ABG PARTIAL PRESSURE O2; Value: 83.5; Range: 75.0-100.0; Units: mmHg; Status: F Test: ABG TOTAL CO2; Value: 16.6; Range: 23.0-31.0; Abnormal: Below low normal; Units: MEQ/L; Status: F Test: ABG HCO3; Value: 15.8; Range: 22.0-26.0; Abnormal: Below low normal; Units: MEQ/L; Status: F Test: ABG BASE EXCESS; Value: -7.2; Range: -2.0-2.0; Abnormal: Below low normal; Status: F Test: ABG STANDARD HCO3; Value: 18.6; Range: 22.0-26.0; Abnormal: Below low normal; Units: MEQ/L; Status: F Test: ABG O2 SATURATION; Value: 96.5; Range: 95.0-99.0; Units: %; Status: F Test: ABG DEVICE; Value: ROOM AIR; Status: F Lab Order: CARDIAC INJURY PROFILE; SPEC' 12/09/16 13:06 Test: CPK CREATINE PHOSPHOKINASE; Value: 59; Range: 26-192; Abnormal: Delta; Units: U/L; Status: F Test: CK-MB VALUE MASS; Value: 1.0; Range: 0.0-3.6; Units: NG/ML; Status: F Test: MB/CK RELATIVE INDEX; Value: 1.69; Range: < OR =4; Status: F Test Note: ; DIAGNOSIS CRITERIA MMB ng/ml Relative Index (RI) NON-AMI < or = 5 N/A STERN ZONE > 5 < or = 4 AMI > 5 > 4 Lab Order: TROPONIN; SPEC' 12/09/16 13:06 Test: TROPONIN I; Value: < 0.02; Range: < 0.10; Units: NG/ML; Status: F Test Note: ; Troponin I Reference Interval for [employer] LOCI: 99th Percentile= 0.00-0.045 ng/ml Risk Stratification: <= 0.10 ng/ml Decreased Risk for Adverse Clinical Events. 0.10-1.50 ng/ml Increased Risk for Adverse Clinical Events. Evaluation of additional criterion and/or repeat testing in 2-6 hours is suggested to rule out myocardial damage. >= 1.50 ng/ml Indicative of Myocardial Injury. 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 Visualized lung keith are well-aerated and clear. No; obvious consolidation, effusion, or pneumothorax. Skeletal structures intact.; ; Impression:; Stable cardiomegaly. No acute cardiopulmonary process identified.; ; ; Signed by; Felipe Diop MD 12/09/2016 08:14 A; Radiology Order: Chest, 1 view Test: Chest, 1 view REASON FOR EXAMINATION: DIFFICULTY BREATHING; Portable chest x-ray: Single AP view.; ; History: Difficulty breathing.; ; Findings: Upright portable chest x-ray shows clear well inflated lungs.; Moderate cardiomegaly is observed unchanged. The aorta is calcific. Pulmonary; vasculature is not increased.; ; Impression:; ; Cardiomegaly. No infiltrate seen.; ; ; Signed by; Chi Kirby MD 12/09/2016 01:41 P; Outcome: 07:55 Decision to Hospitalize by Provider. sd1 15:27 Discharge Assessment: patient administered narcotics - no. The following High Risk j Discharge criteria are identified: None. Admitted to PCU accompanied by nurse, accompanied by tech, via stretcher, on monitor. Condition: stable. No special radiology studies were completed. Admission hand-off: Report Faxed Fax receipt verified by Ronald. Property :Personal belongings accompany Pt. 15:53 Patient left the ED. [facility] Signatures: Dispatcher [employer] EDMS Li Andres MD MD sd1 Stacy Peters, Assembler [employer] Brushes Unit lbd Mauro Quintana, RN RN bcj Lizzy Mesa, PSA PSA rb Maria D Dong, Reg Reg gb Bobby Arguello, Assembler [employer] Unit ml3 Ariana Kennedy, PSA PSA Marimar Vivar, RN RN jc4 Melida Abarca, DO DO cs11 Saji Rouse, LINECASTING MACHINE KEYBOARD OPERATOR LINECASTING MACHINE KEYBOARD OPERATOR Amy MccloudRN RN ko2 Tang Galvin,RT RT cs15 Isabel Rosenthal, Reg Reg hs2 Blanca Lozano, LINECASTING MACHINE KEYBOARD OPERATOR LINECASTING MACHINE KEYBOARD OPERATOR cln Aixa Burns RN jc4 Corrections: (The following items were deleted from the chart) 05:02 05:02 Derm: Skin is normal, ko2 ko2 Chart Complete MTDD
--- NOTE | 2016-12-11 16:54 | EDDOCDS ---
Physician Documentation [facility] Name: Karen Painter Age: 71 yrs Sex: Female : 1945 Arrival Date: 12/09/2016 Time: 03:43 Bed Admit Hold Private MD: Jann Sherman E. Disposition: 12/09/16 07:55 Hospitalization ordered by Julius Green for Inpatient Admission. Preliminary diagnosis are Urinary tract infection, site not specified, Chronic atrial fibrillation. - Bed requested for PCU. - Status is Inpatient Admission. bcj - Condition is Stable. - Problem is new. - Symptoms have improved. Historical: - Allergies: nkda, but reports headache with keflex; - Home Meds: 1. Altace 10 mg Oral cap 1 cap once daily 2. bisoprolol fumarate 5 mg oral tab 1 tab twice daily 3. Eliquis 5 mg oral tab 1 tab 2 times per day 4. ferrous sulfate 325 mg (65 mg iron) Oral cpER 325 mg daily 5. Humalog 100 unit/mL Sub-Q soln sliding scale at meals and bedtime 6. Lasix 40 mg Oral tab 1 tab once daily 7. Levemir 100 unit/mL subcutaneous soln 70 unit three times a day 8. Lexapro 10 mg Oral tab 1 tab once daily 9. magnesium oxide 400 mg Oral cap 400 mg twice a day 10. Nexium 40 mg Oral cpDR 1 cap once daily 11. Nitrostat 0.4 mg SL subl 1 tab every 5 minutes 12. Pravachol 20 mg Oral tab 1 tab once daily 13. prolia 60mg q 6 months 14. Zetia 10 mg Oral tab 1 tab once daily - PMHx: Atrial Fib; CHF; COPD; hyperlipidemia; Diabetes - IDDM: controlled; Kidney stones; Hypertension; reflux; Osteoporosis; renakl insufficiency; venous insufficiency; - Social history: Smoking status: Patient states former smoker of tobacco. No barriers to communication noted, The patient speaks fluent Sinhala, Speaks appropriately for age. - Family history: Not pertinent. - : The pt / caregiver states he / she is on anticoagulants: Eliquis Home medication list is obtained from [employer] import data. - Exposure Risk Screening:: None identified. Vital Signs: 12/09 03:53 BP 151 / 99 RA Sitting (auto/reg); Pulse 126 MON; Resp 24 S; Temp 99.4(TE); Pulse Ox cln 94% on R/A; Weight 148.78 kg / 328 lbs (R); Height 5 ft. 4 in. (162.56 cm) (R); Pain 0/10; 05:13 BP 139 / 78 (auto/); ko2 05:16 Pulse 128 MON; Pulse Ox 93% ; ko2 05:42 Pulse 132 MON; Pulse Ox 95% ; ko2 05:43 BP 123 / 58 (auto/); ko2 06:12 Pulse 120 MON; Pulse Ox 94% ; ko2 06:13 BP 112 / 69 (auto/); ko2 06:43 BP 122 / 74 (auto/); ko2 06:43 Pulse 114 MON; Pulse Ox 94% ; ko2 08:20 Pulse 142 MON; Pulse Ox 97% ; bcj 08:24 BP 123 / 75 (auto/); bcj 08:24 Pulse Ox 97% ; bcj 15:08 BP 122 / 58; Pulse 106; Resp 16; Temp 96.4(O); Pulse Ox 95% on R/A; Pain 4/10; bcj 03:53 Body Mass Index 56.30 (148.78 kg, 162.56 cm) cln MDM: 04:34 ECG WITH READING ER PHYS+CARDIAG ordered. EDMS 04:49 Real Estate Leasing Manager/Pulse Ox/q 30 min VS ordered. nov 04:49 IV Saline Lock ordered. nov 04:49 Rhythm Strip to chart ordered. nov 04:49 Undress patient appropriately for examination ordered. nov 04:50 Basic Metabolic Profile Ordered. EDMS 04:50 CBC with Diff Ordered. EDMS 04:50 Cardiac Injury Profile Ordered. EDMS 04:50 Troponin Ordered. EDMS 05:00 Financial registration complete. hs2 05:03 [facility] Payment Agreement was scanned into [employer] I/O and attached to record. hs2 05:04 Kaufman ordered. cs11 05:04 NS 0.9% 500 ml IV at bolus once ordered. cs11 05:06 Urinalysis Ordered. EDMS 05:06 Urine Culture Ordered. EDMS 05:06 Lactic Acid (Stern tube on ice) Ordered. EDMS 05:06 Chest, 1 View Ordered. EDMS 05:07 -Blood Culture (Adults Only), peripheral from different site, or from device/port/PICC cs11 etc. if present ordered. 05:08 -Blood Culture Ordered. EDMS 05:20 -Blood Culture (Adults Only), peripheral from different site, or from device/port/PICC ml3 etc. if present complete. 05:21 BLOOD CULTURES Ordered. EDMS 05:24 LIVER PROFILE Ordered. EDMS 05:24 THYROID PROFILE Ordered. EDMS 05:47 CBC with Diff Reviewed. cs11 06:20 Basic Metabolic Profile Reviewed. cs11 06:20 Lactic Acid (Stern tube on ice) Reviewed. cs11 06:20 LIVER PROFILE Reviewed. cs11 06:20 Cardiac Injury Profile Reviewed. cs11 06:20 Troponin Reviewed. cs11 06:20 THYROID PROFILE Reviewed. cs11 06:23 Insulin Regular Human 20 units IVP once ordered. cs11 06:23 Accucheck ordered. cs11 06:24 NS 0.9% 500 ml IV at bolus once ordered. cs11 06:59 Fingerstick Blood Sugar Ordered. EDMS 07:07 Urinalysis Reviewed. sd1 07:07 Fingerstick Blood Sugar Reviewed. sd1 07:08 BED REQUEST+ADM ordered. EDMS 07:32 cefTRIAXone 1 grams IVPB once over 30 mins; dilute in 50mL of NS or D5W ordered. sd1 08:23 Written Provider Order was scanned into [employer] I/O and attached to record. lbd 08:41 Written Provider Order was scanned into [employer] I/O and attached to record. lbd 08:43 Chest, 1 view Ordered. EDMS 08:44 ARTERIAL BLOOD GAS Ordered. EDMS 08:44 CARDIAC INJURY PROFILE Ordered. EDMS 08:44 CARDIAC INJURY PROFILE Ordered. EDMS 08:44 TROPONIN Ordered. EDMS 08:44 TROPONIN Ordered. EDMS 08:45 PHYSICAL THERAPY EVAL & TREAT ordered. EDMS 08:46 Admission / Observation Status ordered. EDMS 08:46 ECHOCARD,DOPPLER/COLOR FLOW ordered. EDMS 08:46 CONSISTENT CARBOHYDRATES ordered. EDMS 09:05 Metoprolol 2.5 mg IVP once; Hold for SBP < 100 or HR < 60. ordered. bcj 09:05 Bisoprolol 5 mg PO once ordered. bcj 09:05 Levemir - Insulin Detemir 100 unit/mL 70 units Sub-Q once ordered. bcj 12:13 Fingerstick Blood Sugar Ordered. EDMS 14:54 T-Sheet-- Draft Copy was scanned into [employer] I/O and attached to record. gb 12/10 09:03 ECG/EKG was scanned into [employer] I/O and attached to record. Point of Care Testing: Blood Glucose: 12/09 06:53 Blood Glucose: 363 mg/dL; ko2 Ranges: Administered Medications: 05:36 Drug: NS 0.9% 500 ml [sodium chloride 0.9 % intravenous solution] Route: IV; Rate: ko2 bolus; Site: left forearm; 06:25 Drug: NS 0.9% 500 ml [sodium chloride 0.9 % intravenous solution] Route: IV; Rate: ko2 bolus; Site: left forearm; 06:28 Drug: Insulin Regular Human 20 units [insulin regular human 100 unit/mL injection ko2 solution (0.2 mL)] {Co-Signature: dheeraj (Aixa Yin RN).} Route: IVP; Site: left forearm; 07:47 Drug: cefTRIAXone 1 grams [ceftriaxone 1 gram solution for injection] Route: IVPB; bcj Infused Over: 30 mins; Site: left antecubital; 09:00 Drug: Metoprolol 2.5 mg [metoprolol 5 mg/5 mL intravenous solution (2.5 mL)] Route: bcj IVP; Site: left antecubital; 09:06 Drug: Bisoprolol 5 mg [bisoprolol fumarate 5 mg tablet (1 tabs)] Route: PO; bcj 09:06 Drug: Levemir - Insulin Detemir 70 units [insulin detemir 100 unit/mL subcutaneous bcj solution (0.7 mL)] {Co-Signature: eze (Marimar Burns RN).} Route: Sub-Q; Site: left upper arm; Signatures: Dis[facility] Li Andres MD MD sd1 Stacy Peters, Auction Clerk Unit lbd Mauro Quintana RN Aixa Abad RN Maria D Feng, Reg Reg gb Bobby Arguello, Auction Clerk Unit ml3 Billy Rahman, DO cs11 Amy Sun RN RN ko2 Barrington Bradford RN RN [facility] Isabel Rosenthal, Reg Reg hs2 Aixa Burns RN jc4 The chart was reviewed and I authenticate all verbal orders and agree with the evaluation and treatment provided.Corrections: (The following items were deleted from the chart) 05:22 05:06 THYROID PROFILE+LAB ordered. EDMS EDMS 05:22 05:06 LIVER PROFILE+LAB ordered. EDMS EDMS Attachments: 05:03 [facility] Payment Agreement hs2 08:23 Written Provider Order lbd 08:41 Written Provider Order lbd 14:54 T-Sheet-- Draft Copy gb 12/10 09:03 ECG/EKG gb Chart Complete MTDD
[2016-12-11 19:59] VITALS: BP 137/81
[2016-12-12] VITALS (7 sets, daily range): BP systolic 121–170; BP diastolic 64–89
[2016-12-12] MEDS: KCL 20MEQ in NS 1000ML 1,000 ML IV SCH (00:51)
[2016-12-12] MEDS: ONDANSETRON 4MG/2ML VIAL (J2405) IV PRN (05:26)
[2016-12-12] MEDS: MEROPENEM INJ 1 GM in D5W MINI-BAG PLUS 100 ML IV SCH ×2 (05:26→15:38)
[2016-12-12 05:42] LABS: CREATININE FOR GFR 1.2 MG/DL (0.55-1.02); GLOMERULAR FILTRATION RATE 46.9 (>39); MAGNESIUM LEVEL 1.6 MG/DL (1.8-2.4); POTASSIUM SERUM 4.5 MEQ/L (3.5-5.1)
[2016-12-12 06:25] LABS: BASO # 0.1 K/mm3 (0.0-0.2); BASO % 0.9 % (0.0-1.0); EOS # 0.2 K/mm3 (0.0-0.50); EOS % 2.8 % (0.0-3.0); LARGE UNSTAINED CELL # 0.4 K/mm3 (0.0-0.4); LYMPH # 0.8 K/mm3 (1.5-4.5); LYMPH % 12.1 % (24.0-44.0); MEAN CORPUSCULAR HEMOGLOBIN 27.6 pg (27.0-33.0); MEAN CORPUSCULAR VOLUME 91.9 fl (80.0-96.0); MONO # 0.4 K/mm3 (0.0-0.8); MONO % 6.4 % (0.0-5.0); NEUTROPHILS # 4.8 K/mm3 (1.8-7.7); NEUTROPHILS % 71.8 % (36.0-66.0); PLATELET COUNT, AUTOMATED 179 k/mm3 (150-450); RED CELL DISTRIBUTION WIDTH 15.5 % (11.5-14.5); WHITE BLOOD COUNT 6.8 K/mm3 (4.0-10.0)
[2016-12-12] MEDS: PANTOPRAZOLE 40MG TAB (PROTONIX) PO SCH (07:49)
[2016-12-12] MEDS: PRAVASTATIN 20 MG TAB PO SCH (07:49)
[2016-12-12] MEDS: BISOPROLOL FUMARATE 5 MG TAB PO SCH ×2 (07:49→20:38)
[2016-12-12] MEDS: FERROUS SULFATE 325MG TAB PO SCH (07:49)
[2016-12-12] MEDS: LACTOBACILLUS ACIDOPHILUS CAP (BACID) PO SCH ×2 (07:49→20:38)
[2016-12-12] MEDS: APIXABAN 5 MG TAB (ELIQUIS) PO SCH ×2 (07:49→20:39)
[2016-12-12] MEDS: NYSTATIN 100,000 UNITS/GM TOPICAL PWD 15 GM TOP SCH ×2 (07:49→20:38)
[2016-12-12] MEDS: ESCITALOPRAM OXALATE 10 MG TAB (LEXAPRO) PO SCH (07:49)
[2016-12-12] MEDS: LEVEMIR (INSULIN DETEMIR) 1 UNITS/0.01ML SC SCH ×2 (07:50→20:39)
[2016-12-12] MEDS: HumaLOG INSULIN (NovoLOG) PER UNIT SC SCH ×4 (07:50→20:31)
--- NOTE | 2016-12-12 11:02 | IPNPDOC ---
Assessment/Plan Date Seen The patient was seen on 12/12/16. Problems Problems: (1) Sepsis Status: Acute Problem Text: Meropenem day #3. Klebsiella on blood culture with sensitivity to Meropenem. Has allergy to Cephalexin. (2) UTI (urinary tract infection) Status: Acute Response to Treatment: Improving Problem Specific Plan: Monitor Clinically (3) Hypomagnesemia Status: Acute Problem Text: received multiple runs yesterday. 1.6 today. will monitor. (4) CHF exacerbation Status: Chronic Response to Treatment: Stable Problem Specific Plan: Monitor Clinically (5) CKD (chronic kidney disease) stage 3, GFR 30-59 ml/min Status: Chronic Response to Treatment: Stable Problem Specific Plan: Monitor Clinically Problem Text: Cr 1.2. Near baseline. (6) HTN (hypertension) Status: Chronic Response to Treatment: Stable Problem Specific Plan: Monitor Clinically (7) Diabetes type 2, uncontrolled Status: Chronic Response to Treatment: Stable Problem Specific Plan: Monitor Clinically (8) Atrial fibrillation Status: Chronic Response to Treatment: Stable Problem Text: rate controlled. on Eliquis. (9) CHF (congestive heart failure) Status: Chronic Plan / VTE VTE Prophylaxis Ordered?: Yes (Eliquis) Plan / Urinary Catheter Urinary Catheter: D/C Teran Reason for insertion/continuin: Acute obstruct/retention Plan IVF: Discontinue Activity: Continue Current Therapy: PT Subjective Review of Systems CC/HPI The patient is a 71-year-old female admitted with a reason for visit of Sepsis Uti. Constitutional: Denies: Chills, Fever ENT: Denies: Head Aches Skin: Denies: Lesions, Rash Pulmonary: Denies: Cough, Dyspnea Cardiovascular: Denies: Chest Pain, Palpitations Gastrointestinal: Denies: Abdominal Pain, Constipation, Diarrhea, Nausea, Vomiting Genitourinary: Reports: Other Symptoms (Teran), Denies: Dysuria, Frequency Psych: Reports: Mood Normal Objective Physical Examination General Exam: Positive: Alert, Cooperative, No Acute Distress Eye Exam: Positive: PERRLA ENT Exam: Positive: Atraumatic Neck Exam: Positive: Supple, Negative: JVD Chest Exam: Positive: Clear to auscultation Heart Exam: Positive: Normal S1, Normal S2, Rate Normal Telemetry: Positive: No significant arrhythmia Abdomen Exam: Positive: Normal bowel sounds, Soft, Negative: Tenderness Extremity Exam: Positive: Edema (BLE 2+) Vital Signs/I&O Vital Signs Date Time Temp Pulse Resp B/P Pulse Ox O2 Delivery O2 Flow Rate FiO2 12/12/16 08:00 95.6 52 18 149/89 95 Room Air I&O- Last 24 Hours up to 6 AM 12/12/16 05:59 Intake Total 3040 ml Output Total 2625 ml Balance 415 ml Laboratory Data Labs 24H Laboratory Tests 2 12/11/16 11:25: Bedside Glucose (Misc Panel) 427H 12/11/16 17:29: Bedside Glucose (Misc Panel) 327H 12/12/16 04:42: Anion Gap 9, White Blood Count 6.8, Red Blood Count 4.41, Hemoglobin 12.2, Hematocrit 40.5, Mean Corpuscular Volume 91.9, Mean Corpuscular Hemoglobin 27.6 , Mean Corpuscular Hemoglobin Concent 30.0L, Red Cell Distribution Width 15.5H, Platelet Count 179, Neutrophils (%) (Auto) 71.8H, Lymphocytes (%) (Auto) 12.1L, Monocytes (%) (Auto) 6.4H, Eosinophils (%) (Auto) 2.8, Basophils (%) (Auto) 0.9 , Neutrophils # (Auto) 4.8, Lymphocytes # (Auto) 0.8L, Monocytes # (Auto) 0.4, Eosinophils # (Auto) 0.2, Basophils # (Auto) 0.1, Blood Urea Nitrogen 24H, Creatinine 1.20H, Sodium Level 136, Potassium Level 4.5, Chloride Level 109H, Carbon Dioxide Level 18L, Calcium Level 9.0, Glomerular Filtration Rate 46.9, Large Unclassified Cells # 0.4, Large Unclassified Cells % 6.0H, Magnesium Level 1.6L CBC/BMP Laboratory Tests 12/12/16 04:42 Calcium Level 9.0, Red Blood Count 4.41, Mean Corpuscular Volume 91.9, Mean Corpuscular Hemoglobin 27.6, Mean Corpuscular Hemoglobin Concent 30.0 L, Red Cell Distribution Width 15.5 H, Neutrophils (%) (Auto) 71.8 H, Lymphocytes (%) ( Auto) 12.1 L, Monocytes (%) (Auto) 6.4 H, Eosinophils (%) (Auto) 2.8, Basophils (%) (Auto) 0.9, Neutrophils # (Auto) 4.8, Lymphocytes # (Auto) 0.8 L, Monocytes # (Auto) 0.4, Eosinophils # (Auto) 0.2, Basophils # (Auto) 0.1 FSBS Laboratory Tests Test 12/11/16 11:25 12/11/16 17:29 Range/Units Bedside Glucose (Misc Panel) 427 327 83-110 MG/DL Microbiology Microbiology 12/09/16 Blood Culture - Final, Complete Klebsiella Pneumoniae 12/09/16 Blood Culture - Final, Complete Klebsiella Pneumoniae 12/09/16 Urine Culture - Final, Complete Klebsiella Pneumoniae Akila Ross MULTICUT LINE OPERATOR Dec 12, 2016 11:02
--- NOTE | 2016-12-12 13:58 | REP ---
BILATERAL RENAL ULTRASOUND, COMPLETE: 12/12/2016 CLINICAL HISTORY: Urinary tract infection with Klebsiella bacteremia, chronic kidney disease. COMPARISON: CT abdomen and pelvis with contrast 06/03/2016, renal ultrasound 02/04/2009, 11/22/2005. FINDINGS: Right kidney is 10.9 x 5.1 x 4.3 cm and the left 9.9 x 4.5 x 4 cm. Both show cortical echogenicity increased indicating chronic medical renal disease. The renal margins are lobulated. There are calcified vessels at the hilum on the left. There is no hydronephrosis or hydroureter on either side. No gross evidence of mass, cyst or solid lesion. No perinephric fluid or stone. Bladder was very limited in evaluation measured only 4 x 5.5 x 3.7 cm. Body habitus considerations and limited filling do not allow visualization of details of the bladder wall or presence/absence of ureteral jets. IMPRESSION: 1. Findings of chronic medical renal disease with very limited detail due to the body habitus considerations. Chronic medical renal disease suggested without gross hydronephrosis, any obvious mass or stone. No perinephric fluid collection or cystic mass. Cortical echogenicity increased. Signed by Juvenal Rizzo MD 12/12/2016 02:56 P
--- NOTE | 2016-12-12 19:02 | CR ---
DATE OF CONSULTATION: 12/12/2016 HISTORY OF PRESENT ILLNESS: Patient is a 71-year-old female who presented to the hospital after having a fall at home. While in the emergency department patient was having weakness. The patient was found to have a urinary tract infection. Urine culture and blood culture later grew out Klebsiella pneumoniae. Patient was seen today for infectious disease consult. Patient today is complaining of some abdominal ache, nausea, but she denies any dysuria or hematuria. She was otherwise doing well and did not have any acute concerns. PAST MEDICAL HISTORY: 1. Atrial fibrillation. 2. Hypertension. 3. Chronic obstructive pulmonary disease (COPD). 4. Recurrent urinary tract infections (UTIs). SURGICAL HISTORY: 1. Atrial flutter ablation. 2. Incision and drainage, bilateral shoulders. SOCIAL HISTORY: Patient with a history of tobacco use. Denies any alcohol or illicit drug use. ALLERGIES: CEPHALEXIN. CURRENT MEDICATIONS: Eliquis 5 mg by mouth twice a day Zebeta 5 mg by mouth twice a day dextrose 25 mL IV when necessary for hypoglycemia Lexapro 10 mg by mouth daily ferrous sulfate 325 mg by mouth daily glucagon 1 mg subcutaneously as needed for hypoglycemia glucose 16 g by mouth as necessary for hypoglycemia Levemir insulin 70 units subcutaneously daily at bedtime, 90 units subcutaneously daily Humalog insulin sliding scale subcutaneously every before meals, daily at bedtime Bacid 1 tablet by mouth twice a day meropenem 1 g IV every 8 hours nystatin one dose topically twice a day Zofran 4 mg IV every 6 hours when necessary for nausea or vomiting Protonix 40 mg by mouth daily Pravachol 20 mg by mouth daily REVIEW OF SYSTEMS: Denies fevers, chills, night sweats. HEENT: Head: Denies headaches, dizziness, lightheadedness. Eyes: Denies vision changes. Nose: Denies sinus pain, pressure, congestion. Ears: Denies pain, pressure, tinnitus, or hearing loss. Throat: Denies sore throat, cough, difficulty swallowing. HEART: Denies chest pain, pressure. LUNGS: Denies shortness of breath or difficulty breathing. ABDOMEN: Positive for abdominal aching, nausea. Denies vomiting, diarrhea, constipation, or bright red or dark, tarry bowel movements. GENITOURINARY: Denies dysuria, hematuria. MUSCULOSKELETAL: Denies muscle or joint pain. NEUROLOGIC: Denies numbness, tingling, paresthesia, loss of sensation. SKIN: Denies cuts, rashes, abrasions, or bruising. LYMPHATICS: Denies swollen lymph nodes or palpable glands. PHYSICAL EXAMINATION: VITAL SIGNS: Temperature 96.5, pulse 65, respiratory rate 18, blood pressure 131/87, pulse oximetry 98% on room air. GENERAL: Patient awake in bed. Verbal and able to answer questions appropriately. She does not appear to be in any acute distress. HEENT: Head Normocephalic, atraumatic. Eyes: Extraocular movements intact. Pupils equally round and reactive to light. Throat: Moist oral mucosa. Edentulous. HEART: Irregularly irregular rate and rhythm. A 2/6 systolic murmur. No rubs, clicks, or gallops. LUNGS: Clear to auscultation bilaterally. No wheezes, rales, or rhonchi. ABDOMEN: Multiple bandages, for which patient says she is being treated by wound care for abdominal abscesses. Bandages are clean and dry. Active bowel sounds. Nontender. No masses to palpation. EXTREMITIES: Patient has small venous stasis ulcers present throughout lower extremities. No hair present in lower extremities. MUSCULOSKELETAL: 5/5 strength present throughout lower extremities. NEUROLOGIC: Sensation intact and symmetrical throughout lower extremities. VASCULAR: Radial pulses palpable bilaterally. Right dorsalis pedis pulse palpable. Left dorsalis pedis nonpalpable. FEET: Dry skin present in feet bilaterally, onychomycosis present in feet bilaterally LABORATORY DATA: CBC: White blood cells 6.8, hemoglobin and hematocrit 12.4, 40.5, platelets 179. Chemistry: Sodium 136, potassium 4.5, chloride 109, carbon dioxide 18, BUN 24, creatinine 1.20, glucose 292, calcium 9.0, magnesium 1.6. Microbiology: Urine culture grew Klebsiella pneumoniae. Blood cultures times two positive for Klebsiella pneumoniae. IMAGING: Renal ultrasound as read by radiology: Findings of chronic renal disease with limited data due to body habitus. No hydronephrosis. No obvious mass or stone. No perinephric fluid collection or cystic mass. ASSESSMENT: Patient is [id number] female who was admitted to hospital with urinary tract infection after a fall at home. Patient was found to have sepsis secondary to urinary tract infection on hospital workup. PLAN: 1. Sepsis secondary to urinary tract infection. Patient currently doing very well. She will be transitioned from meropenem to oral Levaquin 500 mg by mouth daily. This is renally dosed for her creatinine clearance of 36. 2. Onychomycosis, dry skin throughout feet. Orders placed for topical Lotrimin and topical Eucerin. Recommend patient be referred to podiatry as outpatient for diabetic foot care. My preceptor for this patient encounter was Dr. Michelle Dahl. The preceptor was physically present in the building during the encounter and was fully available as needed. All aspects of the patient interview, examination, medical decision making process, and medical care plan development were reviewed and approved by the preceptor. The preceptor is aware and concurs with the plan as stated in the body of this note and will attest to such by his/her co-signature. SHANNAN
[2016-12-12] MEDS: EUCERIN 120GM CREAM TOP SCH (20:37)
[2016-12-12] MEDS: CLOTRIMAZOLE 1% TOPICAL CREAM 30GM TOP SCH (20:37)
[2016-12-13 03:44] VITALS: BP 134/83
[2016-12-13] MEDS ORDERED: LevoFLOXacin 500 MG TABLET PO SCH (06:00)
[2016-12-13 06:02] LABS: ANION GAP 8 MEQ/L (8-16); BLOOD UREA NITROGEN 19 MG/DL (7-18); CALCIUM LEVEL 9.3 MG/DL (8.8-10.2); CARBON DIOXIDE LEVEL 21 MEQ/L (21-32); CHLORIDE LEVEL 112 MEQ/L (98-107); CREATININE FOR GFR 0.87 MG/DL (0.55-1.02); GLOMERULAR FILTRATION RATE > 60.0 (>39); GLUCOSE, FASTING 75 MG/DL (83-110); MAGNESIUM LEVEL 1.5 MG/DL (1.8-2.4); POTASSIUM SERUM 3.9 MEQ/L (3.5-5.1); SODIUM LEVEL 141 MEQ/L (136-145)
[2016-12-13 06:03] LABS: BASO # 0.1 K/mm3 (0.0-0.2); BASO % 1.1 % (0.0-1.0); EOS # 0.2 K/mm3 (0.0-0.50); LARGE UNSTAINED CELL # 0.3 K/mm3 (0.0-0.4); LYMPH # 1.3 K/mm3 (1.5-4.5); LYMPH % 13.2 % (24.0-44.0); MEAN CORPUSCULAR HEMOGLOBIN 26.5 pg (27.0-33.0); MEAN CORPUSCULAR HGB CONC 29.9 g/dl (32.0-36.5); MEAN CORPUSCULAR VOLUME 88.7 fl (80.0-96.0); MONO # 0.4 K/mm3 (0.0-0.8); MONO % 5.4 % (0.0-5.0); NEUTROPHILS # 6.2 K/mm3 (1.8-7.7); NEUTROPHILS % 75.4 % (36.0-66.0); PLATELET COUNT, AUTOMATED 203 k/mm3 (150-450); RED CELL DISTRIBUTION WIDTH 16.8 % (11.5-14.5); WHITE BLOOD COUNT 8.3 K/mm3 (4.0-10.0)
[2016-12-13] MEDS: HumaLOG INSULIN (NovoLOG) PER UNIT SC SCH ×2 (07:30→11:54)
[2016-12-13] MEDS: EUCERIN 120GM CREAM TOP SCH (07:58)
[2016-12-13] MEDS: LEVEMIR (INSULIN DETEMIR) 1 UNITS/0.01ML SC SCH (07:58)
[2016-12-13] MEDS: LACTOBACILLUS ACIDOPHILUS CAP (BACID) PO SCH (07:59)
[2016-12-13] MEDS: PRAVASTATIN 20 MG TAB PO SCH (07:59)
[2016-12-13] MEDS: FERROUS SULFATE 325MG TAB PO SCH (07:59)
[2016-12-13] MEDS: CLOTRIMAZOLE 1% TOPICAL CREAM 30GM TOP SCH (07:59)
[2016-12-13] MEDS: ESCITALOPRAM OXALATE 10 MG TAB (LEXAPRO) PO SCH (07:59)
[2016-12-13] MEDS: APIXABAN 5 MG TAB (ELIQUIS) PO SCH (07:59)
[2016-12-13] MEDS: PANTOPRAZOLE 40MG TAB (PROTONIX) PO SCH (07:59)
[2016-12-13 08:00] VITALS: BP 119/83
[2016-12-13 08:01] VITALS: BP 119/83
[2016-12-13] MEDS: BISOPROLOL FUMARATE 5 MG TAB PO SCH (08:01)
[2016-12-13] MEDS: NYSTATIN 100,000 UNITS/GM TOPICAL PWD 15 GM TOP SCH (08:02)
[2016-12-13] MEDS ORDERED: MAG SULF 1GM/100ML (MAG RUN) 1 GM in APPROPRIATE DILUENT 1 EA IV ONE (11:00)
[2016-12-13 12:00] VITALS: BP 120/80
[2016-12-13] MEDS ORDERED: LEVA500T PO (13:34)
--- NOTE | 2016-12-13 13:38 | DS.PDOC ---
Discharge Summary General Date of Admission Dec 09, 2016 at 08:38 Date of Discharge 12/13/16 Discharge Summary PROCEDURES PERFORMED DURING STAY: [None.] COMPLICATIONS/CHIEF COMPLAINT: Sepsis Uti ADMISSION DIAGNOSES: 1. . 2. . 3. . DISCHARGE DIAGNOSES: 1. . 2. . 3. . HISTORY OF PRESENT ILLNESS: Patient is a [AGE]-year-old [GENDER] with HOSPITAL COURSE: Patient was admitted for DISCHARGE MEDICATIONS: Please see below. ALLERGIES: Please see below. PHYSICAL EXAMINATION ON DISCHARGE: VITAL SIGNS: Please see below. GENERAL: HEENT: NECK: CARDIOVASCULAR EXAMINATION: RESPIRATORY EXAMINATION: ABDOMINAL EXAMINATION: EXTREMITIES: SKIN: NEUROLOGICAL EXAMINATION: PSYCHIATRIC EXAMINATION: LABORATORY DATA: Please see below. IMAGING: VTE Prophylaxis ordered?: DISCHARGE CONDITION: DISPOSITION: ACTIVITY: DIET: ITEMS TO FOLLOWUP ON OUTPATIENT: 1. . 2. . 3. . DISCHARGE PLAN AND INSTRUCTIONS: 1. . 2. . 3. . TIME SPENT ON DISCHARGE: Greater than minutes. Vital Signs/I&Os Vital Signs Date Time Temp Pulse Resp B/P Pulse Ox O2 Delivery O2 Flow Rate FiO2 12/13/16 12:00 97.3 108 20 120/80 96 Room Air I&O- Last 24 Hours up to 6 AM 12/13/16 06:00 Intake Total 1950 ml Output Total 1525 ml Balance 425 ml Laboratory Data Labs 24H Laboratory Tests 2 12/12/16 16:45: Bedside Glucose (Misc Panel) 257H 12/12/16 20:29: Bedside Glucose (Misc Panel) 186H 12/13/16 05:18: Anion Gap 8, White Blood Count 8.3, Red Blood Count 4.15, Hemoglobin 11.0L, Hematocrit 36.8, Mean Corpuscular Volume 88.7, Mean Corpuscular Hemoglobin 26.5L , Mean Corpuscular Hemoglobin Concent 29.9L, Red Cell Distribution Width 16.8H, Platelet Count 203, Neutrophils (%) (Auto) 75.4H, Lymphocytes (%) (Auto) 13.2L, Monocytes (%) (Auto) 5.4H, Eosinophils (%) (Auto) 2.0, Basophils (%) (Auto) 1.1H , Neutrophils # (Auto) 6.2, Lymphocytes # (Auto) 1.3L, Monocytes # (Auto) 0.4, Eosinophils # (Auto) 0.2, Basophils # (Auto) 0.1, Blood Urea Nitrogen 19H, Creatinine 0.87, Sodium Level 141, Potassium Level 3.9, Chloride Level 112H, Carbon Dioxide Level 21, Calcium Level 9.3, Glomerular Filtration Rate > 60.0, Large Unclassified Cells # 0.3, Large Unclassified Cells % 3.0, Magnesium Level 1.5L 12/13/16 11:49: Bedside Glucose (Misc Panel) 227H 12/13/16 12:02: Magnesium Level 1.9 CBC/BMP Laboratory Tests 12/13/16 05:18 Calcium Level 9.3, Red Blood Count 4.15, Mean Corpuscular Volume 88.7, Mean Corpuscular Hemoglobin 26.5 L, Mean Corpuscular Hemoglobin Concent 29.9 L, Red Cell Distribution Width 16.8 H, Neutrophils (%) (Auto) 75.4 H, Lymphocytes (%) ( Auto) 13.2 L, Monocytes (%) (Auto) 5.4 H, Eosinophils (%) (Auto) 2.0, Basophils (%) (Auto) 1.1 H, Neutrophils # (Auto) 6.2, Lymphocytes # (Auto) 1.3 L, Monocytes # (Auto) 0.4, Eosinophils # (Auto) 0.2, Basophils # (Auto) 0.1 FSBS Laboratory Tests Test 12/12/16 16:45 12/12/16 20:29 12/13/16 11:49 Range/Units Bedside Glucose (Misc Panel) 257 186 227 83-110 MG/DL Microbiology Microbiology 12/09/16 Blood Culture - Final, Complete Klebsiella Pneumoniae 12/09/16 Blood Culture - Final, Complete Klebsiella Pneumoniae 12/09/16 Urine Culture - Final, Complete Klebsiella Pneumoniae Medications Scheduled (Prolia) 60 Mg/Ml Juliette 60 MG SC ASDIRECTED PT STATES HAS HAD RECENTLY (Anat-Bid Probiotic) 1 Tab Tab 1 EA PO BID Apixaban Base (Eliquis) 5 Mg Tab 5 MG PO BID Bisoprolol Fumarate (Bisoprolol Fumarate) 5 Mg Tab 5 MG PO BID Escitalopram Oxalate (Lexapro) 10 Mg Tab 10 MG PO DAILY Esomeprazole Magnesium Trihydr (Nexium) 40 Mg Cap 40 MG PO QHS Ferrous Sulfate (Ferrous Sulfate) 325 Mg Tab 325 MG PO DAILY Insulin Aspart Protamine/Aspar (Novolog Mix 70/30 (70-30) 100 Unit/ml) 1 Units/ 0.01 Ml Susp 80 UNITS SC AC Levofloxacin Hemihydrate (Levaquin) 500 Mg Tab 500 MG PO DAILY Nystatin (Nystatin Powder) 100,000 Unit/Gm Pow 0 TOP BID APPLY UNDER SKIN FOLDS Pravastatin Sodium (Pravachol) 20 Mg Tab 20 MG PO DAILY Ramipril (Ramipril) 10 Mg Cap 10 MG PO DAILY Vitamin D (Drisdol) 50,000 Unit Cap 50,000 UNIT PO QWEEK WEDNESDAYS Scheduled PRN Acetaminophen (Tylenol) 325 Mg Tab 650 MG PO Q4H PRN PRN PAIN Nitroglycerin (Nitrostat) 0.4 Mg Subl 0.4 MG SL PRN PRN PRN CHEST PAIN Allergies Coded Allergies: Cephalexin (Unverified Adverse Reaction, Mild, HEADACHE, 10/01/16) MICKY SAXENA MD Dec 13, 2016 13:38
--- NOTE | 2016-12-13 21:05 | IPN ---
DATE: 12/13/2016 Mrs. Painter seems to be a little frustrated. She thought she was leaving in the morning, and it was in the afternoon when she was then told what time she could leave. She denies any complaints. No nausea, vomiting, or diarrhea. No fever or chills. No abdominal pain. She is feeling well. LABORATORY DATA: White count is 8.3, hemoglobin 11, hematocrit 36.8, platelets 203. Sodium 141, potassium 3.9, chloride 112, bicarbonate 21, BUN 19, creatinine 0.87, glucose 75, calcium 9.3, magnesium was 1.5. She received one intravenous (IV) run of magnesium, and it was up to 1.9. Urine culture and blood culture were positive for Klebsiella pneumoniae. The patient has improved with intravenous (IV) antibiotics and could be switched to oral Levaquin to finish a 10-day course, which will make it a total 14 days of antibiotic. The patient will be discharged home on Levaquin 500 mg daily. The patient has also severe tenia pedis and onychomycosis with very long nails and needs a podiatry consult, as she is at risk of diabetic foot ulcer. Will ask her primary care provider to make a referral to podiatry as an outpatient.
== END 2016-12-13 15:30 | disposition home health service (06) | DRG 872 ==
LOC: M ED 03:43 → M ED INP 08:38 → M PCU 15:44
PROVIDERS: ADMIT Internal Medicine; ATTEND Family Medicine
DX: A41.9 Sepsis, unspecified organism (principal); N39.0 Urinary tract infection, site not specified; N17.9 Acute kidney failure, unspecified; I13.0 Hypertensive heart and chronic kidney disease with heart failure and stage 1 through stage 4 chronic kidney disease, or unspecified chronic kidney disease; L97.919 Non-pressure chronic ulcer of unspecified part of right lower leg with unspecified severity; L97.929 Non-pressure chronic ulcer of unspecified part of left lower leg with unspecified severity; I50.32 Chronic diastolic (congestive) heart failure; Z68.43 Body mass index [BMI] 50.0-59.9, adult; E11.65 Type 2 diabetes mellitus with hyperglycemia; I48.91 Unspecified atrial fibrillation; R65.20 Severe sepsis without septic shock; N18.3 Chronic kidney disease, stage 3 (moderate); M81.0 Age-related osteoporosis without current pathological fracture; D50.9 Iron deficiency anemia, unspecified; B96.1 Klebsiella pneumoniae [K. pneumoniae] as the cause of diseases classified elsewhere; E66.01 Morbid (severe) obesity due to excess calories; M51.36 Other intervertebral disc degeneration, lumbar region; J44.9 Chronic obstructive pulmonary disease, unspecified; B35.1 Tinea unguium; I87.2 Venous insufficiency (chronic) (peripheral); E83.42 Hypomagnesemia; Z87.440 Personal history of urinary (tract) infections; Z79.4 Long term (current) use of insulin; Z79.01 Long term (current) use of anticoagulants; Z79.899 Other long term (current) drug therapy; Z88.1 Allergy status to other antibiotic agents; Z86.718 Personal history of other venous thrombosis and embolism

== ENCOUNTER → 2017-01-09 | Outpatient (REF) | payer MEDICARE, MEDICAID ==
[~2017-01-09] MED LIST changes: +LEVA500T PO; +NYST100024 TOP
== END | disposition home or self-care (01) ==
LOC: M SFHCPLAZ 09:07
PROVIDERS: ATTEND Family Medicine
DX: N18.3 Chronic kidney disease, stage 3 (moderate) (principal); E11.622 Type 2 diabetes mellitus with other skin ulcer

== ENCOUNTER 2017-01-17 11:27 | Inpatient (IN) | payer MEDICARE, MEDICAID ==
[~2017-01-17] VITALS: Ht 162.6 cm; Wt 121.5 kg
[2017-01-17] VITALS (30 sets, daily range): BP systolic 46–158; BP diastolic 20–83; O2SAT 97
--- NOTE | 2017-01-17 12:23 | REP ---
CT HEAD WITHOUT CONTRAST: HISTORY: Trauma. COMPARISON: 03/27/2015. Areas of decreased attenuation are present in the right basal ganglia. These represent old lacunar infarctions. Areas of decreased attenuation are present in the periventricular white matter. This represents small vessel ischemic disease. There is no intraparenchymal hemorrhage, mass or midline shift. The ventricular system and cortical sulci as well as subarachnoid space in the posterior fossa are dilated consistent with minimal volume loss. There is no extracerebral collection. There is no fracture. The visualized sinuses are clear. IMPRESSION: 1. Old right basal ganglia lacunar infarctions. 2. Small vessel ischemic disease. 3. Minimal volume loss. Signed by Juan Montoya MD 01/17/2017 12:47 P
--- NOTE | 2017-01-17 12:36 | REP ---
The clinical: Shortness of breath. Comparison: 12/09/2016. Findings: Cardiomegaly is appreciated and mild bony vascular congestion cannot be excluded. No obvious consolidation, effusion, or pneumothorax. Skeletal structures demonstrate age-related changes. Impression: Cardiomegaly. Cannot exclude mild pulmonary vascular congestion. Signed by Felipe Diop MD 01/17/2017 12:27 P
[2017-01-17] MEDS ORDERED: PROMETHAZINE INJ 25 MG/ML VIAL (J2550) As Ordered ONE (12:48)
[2017-01-17 13:12] LABS: INR 2.71; MEAN CORPUSCULAR HEMOGLOBIN 26.3 pg (27.0-33.0); MEAN CORPUSCULAR HGB CONC 28.6 g/dl (32.0-36.5); MEAN CORPUSCULAR VOLUME 92.2 fl (80.0-96.0); PLATELET COUNT, AUTOMATED 223 k/mm3 (150-450); WHITE BLOOD COUNT 25.6 K/mm3 (4.0-10.0)
[2017-01-17 13:16] LABS: ALBUMIN 2.9 GM/DL (3.2-5.2); ALBUMIN/GLOBULIN RATIO 0.71 (1.00-1.93); BILIRUBIN,DIRECT 1.2 MG/DL (0.0-0.2); BILIRUBIN,TOTAL 2.4 MG/DL (0.2-1.0); CALCIUM LEVEL 10.1 MG/DL (8.8-10.2); CREATININE FOR GFR 3.09 MG/DL (0.55-1.02); GLOMERULAR FILTRATION RATE 15.7 (>39); MAGNESIUM LEVEL 1.5 MG/DL (1.8-2.4)
[2017-01-17 13:22] LABS: POTASSIUM SERUM 5.3 MEQ/L (3.5-5.1)
[2017-01-17] MEDS ORDERED: HumuLIN R (REGULAR) INSULIN (NovoLIN R) **100U/ML** PER UNIT As Ordered ONE (13:34)
[2017-01-17] MEDS ORDERED: cefTRIAXone SOD 1 GM VIAL (J0696) As Ordered ONE (13:37)
[2017-01-17 14:12] LABS: BANDS 4 % (< 11); HYPOCHROMASIA 2+
[2017-01-17 14:13] LABS: ANISOCYTOSIS 1+
--- NOTE | 2017-01-17 14:16 | REP ---
Clinical: Trauma. Technique: AP, lateral, swimmers views. Comparison: 02/09/2007 Findings: Age-related degenerative changes include bridging osteophytes, osteopenia, and endplate sclerosis with disc space narrowing. No obvious acute fracture / compression injury or subluxation. Impression: Osteopenia and multilevel degenerative changes. No acute fracture / compression injury or subluxation identified. Signed by Felipe Diop MD 01/17/2017 02:07 P
--- NOTE | 2017-01-17 14:18 | REP ---
Clinical: Trauma. Technique: AP, lateral, bilateral oblique and coned-down views of the lumbosacral spine. Comparison: 03/28/2015. Findings: Osteopenia and advanced multilevel degenerative disc osteophyte complexes are noted including bridging osteophytes, endplate sclerosis and disc space narrowing with hypertrophic facet changes. Alignment and lordosis relatively maintained. No acute fracture / compression injury or subluxation. Impression: Osteopenia and advanced multilevel degenerative changes. No acute fracture / compression injury or subluxation. Signed by Felipe Diop MD 01/17/2017 02:09 P
[2017-01-17] MEDS ORDERED: MAGN400T5 PO (14:19)
[2017-01-17] MEDS ORDERED: INSUHUMDS SC (14:19)
[2017-01-17] MEDS ORDERED: ELIQ5TAB PO (14:19)
[2017-01-17 14:43] LABS: ABG BASE EXCESS -13.3 (-2.0-2.0); ABG DEVICE NASAL CANN; ABG HCO3 11.4 MEQ/L (22.0-26.0); ABG PARTIAL PRESSURE CO2 24.2 mmHg (35.0-45.0); ABG PARTIAL PRESSURE O2 93.1 mmHg (75.0-100.0); ABG STANDARD HCO3 14.2 MEQ/L (22.0-26.0); ABG TOTAL CO2 12.2 MEQ/L (23.0-31.0); ABG pH (ARTERIAL) 7.292 UNITS (7.350-7.450)
--- NOTE | 2017-01-17 15:40 | REP ---
Clinical: Acute generalized abdominal pain. Comparison: 06/03/2016. Findings: Lung keith suggest mild interstitial edema with a small pericardial effusion. Liver, spleen, atrophic pancreas, gallbladder, and bilateral adrenal glands are normal for noncontrast evaluation. Kidneys demonstrate chronic atrophic changes along with nephrolithiasis and renovascular calcifications. Bilateral perinephric stranding is nonspecific and likely chronic and there is no evidence for hydroureteronephrosis or obstructing ureteral calculus. The enteric system is without obstruction or acute inflammatory process. Sigmoid diverticula noted without acute diverticulitis. Pelvis demonstrates collapsed bladder and age-appropriate uterus/adnexa. No ascites. No free air. No significant adenopathy. Induration along the anterior abdominal wall is similar to prior examination. Musculoskeletal structures demonstrate degenerative changes without focal osseous abnormality. Impression: 1. Small pericardial effusion is suggested along with interstitial edema. 2. Chronic changes to the bilateral kidneys including nephrolithiasis and renovascular calcifications without hydroureteronephrosis. 3. Sigmoid diverticula without acute diverticulitis. 4. No ascites. No obvious acute intra-abdominal or pelvic pathology. Signed by Felipe Diop MD 01/17/2017 03:30 P
[2017-01-17] MEDS ORDERED: DEXTROSE 50% 50 ML SYRINGE IV PRN (16:30)
[2017-01-17] MEDS ORDERED: GLUCOSE 4 GM CHEW TABLET PO PRN (16:30)
[2017-01-17] MEDS ORDERED: GLUCAGON FOR INJ 1 MG VIAL (J1610) SC PRN (16:30)
[2017-01-17] MEDS ORDERED: ACETAMINOPHEN TAB 650MG DOSE (2X325MG) PO PRN (16:30)
[2017-01-17] MEDS ORDERED: INSULIN HUMAN REGULAR 100 UNITS in NS 99 ML IV SCH ×3 (17:00→19:13)
[2017-01-17 17:32] LABS: CALCIUM LEVEL 9.3 MG/DL (8.8-10.2); CREATININE FOR GFR 2.95 MG/DL (0.55-1.02); GLOMERULAR FILTRATION RATE 16.6 (>39); POTASSIUM SERUM 4.3 MEQ/L (3.5-5.1)
--- NOTE | 2017-01-17 17:40 | EDDOCDS ---
Nurse's Notes [facility] Name: Karen Painter Age: 71 yrs Sex: Female : 1945 Arrival Date: 01/17/2017 Time: 11:27 Bed 15 Private MD: Jann Sherman E. Diagnosis: Acute kidney failure;Hyperglycemia, unspecified;Acidosis Presentation: 01/17 11:30 Presenting complaint: EMS states: pt fell at 0630 this morning. pt has been laying on dsf the floor unable to get up. pt incontinent of urine and stool. FSBS 587. BP 75/43. recent 112/88. pt reports weakness. pt reports n/v/d for the past 4 days. according to EMS there was stool throughout the house. Suicide/Homicide risk assessment- the patient denies having any suicidal and/or homicidal ideations and does not present with any other emotional, behavioral or mental health complaints. 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 Transition of care: patient was not received from another setting of care. 11:30 Acuity: VIET Level 3 dsf 11:30 Method Of Arrival: Ambulance dsf 12:44 Adult Sepsis Screening: The patient does not have new or worsening altered mentation. kc3 Patient has a respiratory rate of greater than or equal to 22 (1 point). Systolic blood pressure is greater than 100. Patient has a qSOFA score of 1- Negative Sepsis Screen. Triage Assessment: 11:36 General: Appears in no apparent distress, Behavior is appropriate for age, cooperative. dsf Pain: Location: upper back Pain currently is 3 out of 10 on a pain scale. The patient is triaged at the bedside. See Assessment in Nurses Notes section of ED record. Neurological: Level of Consciousness is awake, alert. Respiratory: Airway is patent Respiratory effort is even, unlabored, Respiratory pattern is regular, symmetrical. GI: Reports diarrhea, nausea, vomiting. Derm: Skin is pink, warm & dry. Historical: - Allergies: nkda, but reports headache with keflex; - Home Meds: 1. magnesium oxide 400 mg Oral cap 400 mg twice a day (Last dose: 01/17/2017 06:00) 2. Lexapro 10 mg Oral tab 1 tab once daily (Last dose: 01/17/2017 06:00) 3. Eliquis 5 mg oral tab 1 tab 2 times per day (Last dose: 01/17/2017 06:00) 4. esomeprazole magnesium 40 mg Oral cpDR 1 cap once daily (Last dose: 01/17/2017 06:00) 5. Nitrostat 0.4 mg SL subl 1 tab every 5 minutes (Last dose: Unknown) 6. Pravachol 20 mg Oral tab 1 tab once daily (Last dose: 01/17/2017 06:00) 7. Levaquin 500 mg Oral tab 1 tab once daily (Last dose: 01/17/2017 06:00) 8. ramipril 10 mg Oral cap 1 cap once daily (Last dose: 01/17/2017 06:00) 9. bisoprolol fumarate 5 mg oral tab 1 tab twice daily (Last dose: 01/17/2017 06:00) 10. Tylenol 500 mg Oral as needed (Last dose: Unknown) 11. Humalog 100 unit/mL Sub-Q soln sliding scale at meals and bedtime - PMHx: Atrial Fib; CHF; COPD; Diabetes - IDDM: controlled; hyperlipidemia; Hypertension; Kidney stones; Osteoporosis; reflux; renal insufficency; venous insufficiency; - PSHx: none; - Social history: Smoking status: Patient states former smoker of tobacco. No barriers to communication noted, The patient speaks fluent Upper Sorbian, Speaks appropriately for age. - Family history: Not pertinent. - : The pt / caregiver states he / she is on anticoagulants: Eliqu Home medication list is obtained from pill bottles. - Exposure Risk Screening:: None identified. Screenin:44 Screening information is obtained from the patient. Fall risk: At risk due to kc3 immobility, The following interventions are performed due to a positive Fall Risk Screen: Fall Risk is added to Special Handling on the patient Summary Screen. A Fall Risk Bracelet was applied to the patient. Side Rails are placed in the up position. A Call Jensen is given with instruction to call for help when getting out of bed. Fall Alert bracelet is placed on the patient. Assistance ADL's: requires no assistance with activities of daily living. Abuse/DV Screen: The patient / caregiver reports he/she is: not in a situation that causes fear, pain or injury. Nutritional screening: No deficits noted. home support is adequate. 12:45 Advance Directives: Currently, there is no health care proxy. kc3 Assessment: 11:36 General: see triage nursing assessment . dsf 12:42 General: Appears in no apparent distress, comfortable, Behavior is appropriate for age, kc3 cooperative. Neurological: Level of Consciousness is awake, alert, obeys commands, Oriented to person, place, time. Respiratory: Airway is patent Respiratory effort is even, unlabored. GI: Reports nausea. Derm: Skin is pink, warm & dry. 13:50 General: Appears in no apparent distress, comfortable, Behavior is appropriate for age, kc3 cooperative. Pain: Denies pain. Neurological: Level of Consciousness is awake, alert, confused. Cardiovascular: Rhythm is irregular. Respiratory: Airway is patent Respiratory effort is even, unlabored. Derm: Skin is pink, warm & dry. 14:45 General: Appears in no apparent distress, comfortable, Behavior is appropriate for age, kc3 cooperative. Pain: Denies pain. Neurological: Level of Consciousness is awake, alert, confused. Cardiovascular: Rhythm is irregular. Respiratory: Airway is patent Respiratory effort is even, unlabored, Breath sounds are clear bilaterally. Derm: Skin is pink, warm & dry. 15:50 General: Appears in no apparent distress, comfortable, Behavior is appropriate for age, kc3 cooperative. Pain: Denies pain. Neurological: Level of Consciousness is awake, alert, confused, Oriented to person, place, time. Cardiovascular: Rhythm is irregular. Respiratory: Airway is patent Respiratory effort is even, unlabored. Derm: Skin is pink, warm & dry. 16:50 General: Appears in no apparent distress, comfortable, Behavior is appropriate for age, kc3 cooperative. 17:06 General: Appears in no apparent distress, comfortable, Behavior is appropriate for age, kc3 cooperative. Pain: Denies pain. Neurological: Level of Consciousness is awake, alert, confused. Cardiovascular: Rhythm is atrial fibrillation. Respiratory: Respiratory effort is even, unlabored. Derm: Skin is pink, warm & dry. 17:33 General: Appears in no apparent distress, comfortable, Behavior is appropriate for age, kc3 cooperative. Pain: Denies pain. Neurological: Level of Consciousness is awake, alert, confused. Cardiovascular: Rhythm is atrial fibrillation. Respiratory: Respiratory effort is even, unlabored. Derm: Skin is pink, warm & dry. Vital Signs: 11:38 BP 98 / 55 (auto/); kc3 11:38 Pulse 96 MON; Pulse Ox 96% ; kc3 11:40 BP 98 / 55; Pulse 103; Resp 22; Pulse Ox 96% on R/A; Weight 136.98 kg (R); Height 5 ft. nb2 4 in. (162.56 cm); 11:45 Temp 97.2; Pain 0/10; nb2 11:49 Pulse 66 MON; Pulse Ox 97% ; kc3 11:51 BP 84 / 47 (auto/); kc3 12:05 BP 91 / 61 (auto/); kc3 12:06 Pulse 52 MON; Pulse Ox 91% ; kc3 12:28 BP 105 / 60 (auto/); kc3 12:28 Pulse 78 MON; Pulse Ox 99% ; kc3 14:06 Pulse 70 MON; Pulse Ox 97% ; kc3 14:08 BP 124 / 73 (auto/); kc3 16:12 BP 114 / 61 (auto/); kc3 16:15 Pulse 92 MON; Pulse Ox 98% ; kc3 16:59 BP 109 / 73 (auto/); kc3 17:05 Pulse 88 MON; Pulse Ox 98% ; kc3 17:34 BP 120 / 72; Pulse 85; Resp 22; Temp 98.6(TE); Pulse Ox 98% 2 lpm ; Pain 0/10; kc3 11:40 Body Mass Index 51.84 (136.98 kg, 162.56 cm) nb2 Vitals: 11:36 Log In Time N/A - ambulance arrival. dsf ED Course: 11:28 Patient visited by Zhang Carr PCA. jrd 11:28 Belle Arenas,RN is Primary Nurse. jrd 11:28 Patient moved to Waiting jrd 11:28 Patient moved to 15 jrd 11:31 Jann Sherman is Private Physician. jrd 11:31 Li Andres MD is Attending Physician. sd1 11:32 Patient visited by Zhang Carr PCA. jrd 11:33 Triage Initiated dsf 11:40 Patient visited by Lisa Bond. nb2 11:40 Bed in low position. Call light in reach. Side rails up X2. desk monitor on. Pulse nb2 ox on. NIBP on. 11:42 Maintain field IV. Dressing intact. Good blood return noted. Site clean & dry. Gauge & dsf site: #20 gauge right hand . 11:43 Patient visited by Renee Newton RN. dsf 11:46 Patient visited by Lisa Bond. nb2 11:49 Patient visited by Li Andres MD. sd1 12:25 CT Head Without Contrast Returned. EDMS 12:41 Lactic Acid (Stern tube on ice) Sent. kc3 12:42 Patient visited by Belle Arenas RN. kc3 12:42 Amylase Sent. kc3 12:42 Basic Metabolic Profile Sent. kc3 12:42 CBC with Diff Sent. kc3 12:42 Lipase Sent. kc3 12:42 Liver Profile Sent. kc3 12:42 Prothrombin Time Profile\E\INR Sent. kc3 12:45 The patient / caregiver is instructed regarding the plan of care and ED course. kc3 12:54 BLOOD CULTURES Sent. nb2 12:54 MAGNESIUM LEVEL Sent. kc3 13:11 Chest, 1 View Returned. EDMS 13:12 [facility] Payment Agreement was scanned into [facility] and attached to record. jp5 13:25 Notified attending ED physician of Critical lab value. Lactic acid---7.8. mcp 13:28 Patient visited by Belle Arenas RN. kc3 13:29 DIFFERENTIAL NO CHARGE Sent. kc3 14:39 -Arterial Blood Gas Sent. jh6 14:48 Spine, Thoracic 3 Views Returned. EDMS 14:48 Spine. Lumbosacral, Complete Returned. EDMS 14:55 Straight cath inserted 16 Fr. returned foster urine. Patient tolerated well. kc3 14:59 Patient visited by Belle Arenas RN. kc3 14:59 RESPIRATORY PANEL Sent. kc3 15:00 Vero Washington is Hospitalizing Provider. sd1 16:04 Patient visited by Lisa Bond. nb2 16:04 EKG done. (by ED staff). Reviewed by Li Andres MD. nb2 16:30 CT ABD & PELVIS: No Contrast Returned. EDMS 17:12 No procedures done that require assistance. kc3 Administered Medications: 12:41 Drug: NS 0.9% 1000 ml [sodium chloride 0.9 % intravenous solution] Route: IV; Rate: 250 kc3 mL/hr; Site: right hand; 12:54 Drug: Promethazine 12.5 mg [promethazine 25 mg/mL injection solution (0.5 mL)] Route: kc3 IVP; Site: right hand; 13:26 CANCELLED (Other Intervention Used): Cefepime 1 grams IVPB at 100 mL/hr once over 30 sd1 mins; dilute in 50mL of NS or D5W 13:32 Not Given (Duplicate Order): NS 0.9% 1000 ml IV at 250 mL/hr continuous kc3 14:18 Drug: Insulin Regular Human Infusion (0.1units/kg/hr) 13.698 units/hr [insulin regular kc3 human 100 unit/mL injection solution] {Co-Signature: ms2 (Barrington Senior RN).} Route: IV; Rate: calculated rate; Site: left wrist; 14:18 Drug: cefTRIAXone 1 grams [ceftriaxone 1 gram solution for injection] Route: IVPB; kc3 Infused Over: 30 mins; Site: right hand; 16:48 Follow up: IV Status: Completed infusion kc3 Point of Care Testing: Blood Glucose: 15:20 Blood Glucose: High; kc3 16:49 Blood Glucose: High; kc3 Ranges: RT: 14:39 ABG's drawn from right radial artery pressure held for 5 minutes no bleeding noted jh6 pressure bandage applied specimen sent pt. tolerated well. Order Results: Lab Order: Amylase; SPEC'M 01/17/17 12:39 Test: AMYLASE; Value: 13; Range: 25-115; Abnormal: Below low normal; Units: U/L; Status: F Lab Order: Basic Metabolic Profile; SPEC'M 01/17/17 12:39 Test: GLUCOSE, FASTING; Value: 710; Range: 83-110; Abnormal: Above upper panic limits; Units: MG/DL; Status: F Test: BLOOD UREA NITROGEN; Value: 39; Range: 7-18; Abnormal: Above high normal; Units: MG/DL; Status: F Test: CREATININE FOR GFR; Value: 3.09; Range: 0.55-1.02; Abnormal: Above high normal; Units: MG/DL; Status: F Test: GLOMERULAR FILTRATION RATE; Value: 15.7; Range: >39; Abnormal: Below low normal; Status: F Test: SODIUM LEVEL; Value: 130; Range: 136-145; Abnormal: Below low normal; Units: MEQ/L; Status: F Test: POTASSIUM SERUM; Value: 5.3; Range: 3.5-5.1; Abnormal: Above high normal; Units: MEQ/L; Status: F Test: CHLORIDE LEVEL; Value: 98; Range: 98-107; Units: MEQ/L; Status: F Test: CARBON DIOXIDE LEVEL; Value: 12; Range: 21-32; Abnormal: Below low normal; Units: MEQ/L; Status: F Test: ANION GAP; Value: 20; Range: 8-16; Abnormal: Above high normal; Units: MEQ/L; Status: F Test: CALCIUM LEVEL; Value: 10.1; Range: 8.8-10.2; Units: MG/DL; Status: F Test Note: ; Units are mL/min/1.73 m2 Chronic Kidney Disease Staging per NKF: Stage I & II GFR >=60 Normal to Mildly Decreased Stage III GFR 30-59 Moderately Decreased Stage IV GFR 15-29 Severely Decreased Stage V GFR <15 Very Little GFR Left ESRD GFR <15 on [employer] Lab Order: CBC with Diff; SPEC'M 01/17/17 12:39 Test: WHITE BLOOD COUNT; Value: 25.6; Range: 4.0-10.0; Abnormal: Above high normal; Units: K/mm3; Status: F Test: RED BLOOD COUNT; Value: 4.98; Range: 4.00-5.40; Units: M/mm3; Status: F Test: HEMOGLOBIN; Value: 13.1; Range: 12.0-16.0; Units: g/dl; Status: F Test: HEMATOCRIT; Value: 45.9; Range: 36.0-47.0; Units: %; Status: F Test: MEAN CORPUSCULAR VOLUME; Value: 92.2; Range: 80.0-96.0; Units: fl; Status: F Test: MEAN CORPUSCULAR HEMOGLOBIN; Value: 26.3; Range: 27.0-33.0; Abnormal: Below low normal; Units: pg; Status: F Test: MEAN CORPUSCULAR HGB CONC; Value: 28.6; Range: 32.0-36.5; Abnormal: Below low normal; Units: g/dl; Status: F Test: RED CELL DISTRIBUTION WIDTH; Value: 17.0; Range: 11.5-14.5; Abnormal: Above high normal; Units: %; Status: F Test: PLATELET COUNT, AUTOMATED; Value: 223; Range: 150-450; Units: k/mm3; Status: F Test: NEUTROPHILS; Value: 88; Range: 35-75; Abnormal: Above high normal; Units: %; Status: F Test: BANDS; Value: 4; Range: < 11; Units: %; Status: F Test: LYMPHOCYTES; Value: 4; Range: 16-52; Abnormal: Below low normal; Units: %; Status: F Test: MONOCYTES; Value: 3; Range: 0-8; Units: %; Status: F Test: METAMYELOCYTES; Value: 1; Range: 0-0; Abnormal: Above high normal; Units: %; Status: F Test: HYPOCHROMASIA; Value: 2+; Status: F Test: ANISOCYTOSIS; Value: 1+; Status: F Lab Order: Lipase; [facility] 01/17/17 12:39 Test: LIPASE; Value: 32; Range: 73-393; Abnormal: Below low normal; Units: U/L; Status: F Lab Order: Liver Profile; [facility] 01/17/17 12:39 Test: AST/SGOT; Value: 53; Range: 15-37; Abnormal: Above high normal; Units: U/L; Status: F Test: ALT/SGPT; Value: 31; Range: 12-78; Units: U/L; Status: F Test: ALKALINE PHOSPHATASE; Value: 149; Range: 45-117; Abnormal: Above high normal; Units: U/L; Status: F Test: BILIRUBIN,TOTAL; Value: 2.4; Range: 0.2-1.0; Abnormal: Above high normal; Units: MG/DL; Status: F Test: BILIRUBIN,DIRECT; Value: 1.2; Range: 0.0-0.2; Abnormal: Above high normal; Units: MG/DL; Status: F Test: TOTAL PROTEIN; Value: 7.0; Range: 6.4-8.2; Units: GM/DL; Status: F Test: ALBUMIN; Value: 2.9; Range: 3.2-5.2; Abnormal: Below low normal; Units: GM/DL; Status: F Test: ALBUMIN/GLOBULIN RATIO; Value: 0.71; Range: 1.00-1.93; Abnormal: Below low normal; Status: F Lab Order: Prothrombin Time Profile\E\INR; SPEC'M 01/17/17 12:39 Test: PROTHROMBIN TIME; Value: 28.8; Range: 12.3-14.5; Abnormal: Above high normal; Units: SECONDS; Status: F Test: INR; Value: 2.71; Status: F Test Note: ; THERAPUTIC HUMAN INR VALUES INDICATIONS NORMAL RANGES PROPHYLAXIS/TREATMENT OF: VENOUS THROMBOSIS 2.0-3.0 PULMONARY EMBOLISM 2.0-3.0 PREVENTION OF SYSTEMIC EMBOLISM FROM: TISSUE HEART VALVES 2.0-3.0 ACUTE MYOCARDIAL INFARCTION 2.0-3.0 VALVULAR HEART DISEASE 2.0-3.0 ATRIAL FIBRILLATION 2.0-3.0 MECHANICAL VALVES(HIGH RISK) 2.5-3.5 RECURRENT MYOCARDIAL INFARCTION 2.5-3.5 Lab Order: Urinalysis; SPEC'M 01/17/17 14:55 Test: APPEARANCE, URINE; Value: TURBID; Range: CLEAR; Abnormal: Above high normal; Status: F Test: COLOR, URINE; Value: YELLOW; Range: YELLOW; Status: F Test: PH,URINE; Value: 5.0; Range: 5.0-9.0; Units: UNITS; Status: F Test: SPECIFIC GRAVITY URINE AUTO; Value: 1.013; Range: 1.002-1.035; Status: F Test: PROTEIN, URINE AUTO; Value: 3+; Range: NEGATIVE; Abnormal: Above high normal; Units: mg/dL; Status: F Test: GLUCOSE, URINE (UA) AUTO; Value: 3+; Range: NEGATIVE; Abnormal: Above high normal; Units: mg/dL; Status: F Test: KETONE, URINE AUTO; Value: TRACE; Range: NEGATIVE; Abnormal: Above high normal; Units: mg/dL; Status: F Test: UROBILINOGEN, URINE AUTO; Value: 0.2; Range: 0.0-2.0; Units: mg/dL; Status: F Test: BILIRUBIN, URINE AUTO; Value: NEGATIVE; Range: NEGATIVE; Status: F Test: NITRITE, URINE AUTO; Value: NEGATIVE; Range: NEGATIVE; Status: F Test: LEUKOCYTE ESTERASE, URINE AUTO; Value: 3+; Range: NEGATIVE; Abnormal: Above high normal; Status: F Test: BLOOD, URINE BLOOD; Value: 2+; Range: NEGATIVE; Abnormal: Above high normal; Status: F Test: WBC, URINE AUTO; Value: TNTC; Range: 0-3; Abnormal: Above high normal; Units: /HPF; Status: F Test: RBC, URINE AUTO; Value: 32; Range: 0-3; Abnormal: Above high normal; Units: /HPF; Status: F Test: BACTERIA, URINE AUTO; Value: 3+; Range: NEGATIVE; Abnormal: Above high normal; Status: F Test: SQUAMOUS EPITHELIAL CELL UR AU; Value: 4; Range: 0-6; Units: /HPF; Status: F Test: MUCUS, URINE; Value: SMALL; Range: NEGATIVE; Status: F Test: HYALINE CAST, URINE AUTO; Value: 0; Range: 0-1; Units: /LPF; Status: F Lab Order: Lactic Acid (Stern tube on ice); [facility]01/17/17 12:39 Test: LACTIC ACID SEPSIS PROTOCOL; Value: 7.8; Range: 0.4-2.0; Abnormal: Above upper panic limits; Units: MMOL/L; Status: F Lab Order: MAGNESIUM LEVEL; [facility] 01/17/17 12:39 Test: MAGNESIUM LEVEL; Value: 1.5; Range: 1.8-2.4; Abnormal: Below low normal; Units: MG/DL; Status: F Lab Order: PLATELET ESTIMATE; [facility] 01/17/17 12:39 Test: PLATELET ESTIMATE; Value: NORMAL; Range: NORMAL; Status: F Lab Order: Osmolality, Serum; [facility] 01/17/17 12:39 Test: OSMOLALITY SERUM; Value: 332; Range: 280-301; Abnormal: Above high normal; Units: MOSM/KG; Status: F Lab Order: CARDIAC INJURY PROFILE; [facility] 01/17/17 12:39 Test: CPK CREATINE PHOSPHOKINASE; Value: 198; Range: 26-192; Abnormal: Above high normal; Units: U/L; Status: F Test: CK-MB VALUE MASS; Value: 3.9; Range: 0.0-3.6; Abnormal: Above high normal; Units: NG/ML; Status: F Test: MB/CK RELATIVE INDEX; Value: 1.96; Range: < OR =4; Status: F Test Note: ; DIAGNOSIS CRITERIA MMB ng/ml Relative Index (RI) NON-AMI < or = 5 N/A STERN [place]ONE > 5 < or = 4 AMI > 5 > 4 Lab Order: TROPONIN; [facility] 01/17/17 12:39 Test: TROPONIN I; Value: 0.19; Range: < 0.10; Abnormal: Above high normal; Units: NG/ML; Status: F Test Note: ; Troponin I Reference Interval for Siemens Troppin LOCI: 99th Percentile= 0.00-0.045 ng/ml Risk Stratification: <= 0.10 ng/ml Decreased Risk for Adverse Clinical Events. 0.10-1.50 ng/ml Increased Risk for Adverse Clinical Events. Evaluation of additional criterion and/or repeat testing in 2-6 hours is suggested to rule out myocardial damage. >= 1.50 ng/ml Indicative of Myocardial Injury. Lab Order: -Arterial Blood Gas; [facility] 01/17/17 14:30 Test: ABG pH (ARTERIAL); Value: 7.292; Range: 7.350-7.450; Abnormal: Below low normal; Units: UNITS; Status: F Test: ABG PARTIAL PRESSURE CO2; Value: 24.2; Range: 35.0-45.0; Abnormal: Below low normal; Units: mmHg; Status: F Test: ABG PARTIAL PRESSURE O2; Value: 93.1; Range: 75.0-100.0; Units: mmHg; Status: F Test: ABG TOTAL CO2; Value: 12.2; Range: 23.0-31.0; Abnormal: Below low normal; Units: MEQ/L; Status: F Test: ABG HCO3; Value: 11.4; Range: 22.0-26.0; Abnormal: Below low normal; Units: MEQ/L; Status: F Test: ABG BASE EXCESS; Value: -13.3; Range: -2.0-2.0; Abnormal: Below low normal; Status: F Test: ABG STANDARD HCO3; Value: 14.2; Range: 22.0-26.0; Abnormal: Below low normal; Units: MEQ/L; Status: F Test: ABG O2 SATURATION; Value: 96.4; Range: 95.0-99.0; Units: %; Status: F Test: ABG DEVICE; Value: NASAL ARTI; Status: F Lab Order: RESPIRATORY PANEL; [facility] 01/17/17 14:55 Test: RESPIRATORY PANEL; Value: RP PANEL RESULT NEGATIVE by PCR; Status: F Test: RESPIRATORY PANEL; Value: Comments:; Status: F Test Note: ; This respiratory PCR panel detects Influenza A H1, H3 and 2009 H1 viruses, Influenza B virus, Respiratory syncytial virus, Human metapneumovirus, Parainfluenza virus 1, 2, 3 and 4, Adenovirus, Rhinovirus/Enterovirus, Coronavirus HKU1, NL63, OC43 and 229E, Bordetella pertussis, Mycoplasma pneumoniae and Chlamydia pneumoniae. Lab Order: LACTIC ACID LEVEL, LACTATE; SPEC'M 01/17/17 17:02 Test: LACTIC ACID SEPSIS PROTOCOL; Value: 4.4; Range: 0.4-2.0; Abnormal: Above upper panic limits; Units: MMOL/L; Status: F Lab Order: BASIC METABOLIC PROFILE; SPEC'M 01/17/17 17:02 Test: GLUCOSE, FASTING; Value: 656; Range: 83-110; Abnormal: Above upper panic limits; Units: MG/DL; Status: F Test: BLOOD UREA NITROGEN; Value: 43; Range: 7-18; Abnormal: Above high normal; Units: MG/DL; Status: F Test: CREATININE FOR GFR; Value: 2.95; Range: 0.55-1.02; Abnormal: Above high normal; Units: MG/DL; Status: F Test: GLOMERULAR FILTRATION RATE; Value: 16.6; Range: >39; Abnormal: Below low normal; Status: F Test: SODIUM LEVEL; Value: 134; Range: 136-145; Abnormal: Below low normal; Units: MEQ/L; Status: F Test: POTASSIUM SERUM; Value: 4.3; Range: 3.5-5.1; Units: MEQ/L; Status: F Test: CHLORIDE LEVEL; Value: 102; Range: 98-107; Units: MEQ/L; Status: F Test: CARBON DIOXIDE LEVEL; Value: 17; Range: 21-32; Abnormal: Below low normal; Units: MEQ/L; Status: F Test: ANION GAP; Value: 15; Range: 8-16; Units: MEQ/L; Status: F Test: CALCIUM LEVEL; Value: 9.3; Range: 8.8-10.2; Units: MG/DL; Status: F Test Note: ; Units are mL/min/1.73 m2 Chronic Kidney Disease Staging per NKF: Stage I & II GFR >=60 Normal to Mildly Decreased Stage III GFR 30-59 Moderately Decreased Stage IV GFR 15-29 Severely Decreased Stage V GFR <15 Very Little GFR Left ESRD GFR <15 on [employer] Radiology Order: CT Head Without Contrast Test: CT Head Without Contrast REASON FOR EXAMINATION: Trauma; CT HEAD WITHOUT CONTRAST:; ; HISTORY: Trauma.; ; COMPARISON: 03/27/2015.; ; Areas of decreased attenuation are present in the right basal ganglia. These; represent old lacunar infarctions. Areas of decreased attenuation are present in; the periventricular white matter. This represents small vessel ischemic disease.; There is no intraparenchymal hemorrhage, mass or midline shift. The ventricular; system and cortical sulci as well as subarachnoid space in the posterior fossa; are dilated consistent with minimal volume loss. There is no extracerebral; collection. There is no fracture. The visualized sinuses are clear.; ; IMPRESSION:; ; 1. Old right basal ganglia lacunar infarctions.; ; 2. Small vessel ischemic disease.; ; 3. Minimal volume loss.; ; ; Signed by; Juan Montoya MD 01/17/2017 12:47 P; Radiology Order: Chest, 1 View Test: Chest, 1 View REASON FOR EXAMINATION: Shortness of Breath; The clinical: Shortness of breath.; ; Comparison: 12/09/2016.; ; Findings:; Cardiomegaly is appreciated and mild bony vascular congestion cannot be excluded.; No obvious consolidation, effusion, or pneumothorax. Skeletal structures; demonstrate age-related changes.; ; Impression:; Cardiomegaly.; Cannot exclude mild pulmonary vascular congestion.; ; ; Signed by; Felipe Diop MD 01/17/2017 12:27 P; Radiology Order: Spine. Lumbosacral, Complete Test: Spine. Lumbosacral, Complete REASON FOR EXAMINATION: Trauma; Clinical: Trauma.; ; Technique: AP, lateral, bilateral oblique and coned-down views of the; lumbosacral spine.; ; Comparison: 03/28/2015.; ; Findings:; Osteopenia and advanced multilevel degenerative disc osteophyte complexes are; noted including bridging osteophytes, endplate sclerosis and disc space narrowing; with hypertrophic facet changes. Alignment and lordosis relatively maintained.; No acute fracture / compression injury or subluxation.; ; Impression:; Osteopenia and advanced multilevel degenerative changes.; No acute fracture / compression injury or subluxation.; ; ; Signed by; Felipe Diop MD 01/17/2017 02:09 P; Radiology Order: Spine, Thoracic 3 Views Test: Spine, Thoracic 3 Views REASON FOR EXAMINATION: Trauma; Clinical: Trauma.; ; Technique: AP, lateral, swimmers views.; ; Comparison: 02/09/2007; ; Findings:; Age-related degenerative changes include bridging osteophytes, osteopenia, and; endplate sclerosis with disc space narrowing. No obvious acute fracture /; compression injury or subluxation.; ; Impression:; Osteopenia and multilevel degenerative changes.; No acute fracture / compression injury or subluxation identified.; ; ; Signed by; Felipe Diop MD 01/17/2017 02:07 P; Radiology Order: CT ABD & PELVIS: No Contrast Test: CT ABD & PELVIS: No Contrast REASON FOR EXAMINATION: Abdomen Pain; Clinical: Acute generalized abdominal pain.; ; Comparison: 06/03/2016.; ; Findings:; Lung keith suggest mild interstitial edema with a small pericardial effusion.; ; Liver, spleen, atrophic pancreas, gallbladder, and bilateral adrenal glands are; normal for noncontrast evaluation. Kidneys demonstrate chronic atrophic changes; along with nephrolithiasis and renovascular calcifications. Bilateral; perinephric stranding is nonspecific and likely chronic and there is no evidence; for hydroureteronephrosis or obstructing ureteral calculus. The enteric system; is without obstruction or acute inflammatory process. Sigmoid diverticula noted; without acute diverticulitis. Pelvis demonstrates collapsed bladder and; age-appropriate uterus/adnexa. No ascites. No free air. No significant; adenopathy. Induration along the anterior abdominal wall is similar to prior; examination. Musculoskeletal structures demonstrate degenerative changes without; focal osseous abnormality.; ; Impression:; 1. Small pericardial effusion is suggested along with interstitial edema.; 2. Chronic changes to the bilateral kidneys including nephrolithiasis and; renovascular calcifications without hydroureteronephrosis.; 3. Sigmoid diverticula without acute diverticulitis.; 4. No ascites. No obvious acute intra-abdominal or pelvic pathology.; ; ; Signed by; Felipe Diop MD 01/17/2017 03:30 P; Outcome: 12:45 CT Study completed. kc3 15:00 Decision to Hospitalize by Provider. sd1 17:35 Discharge Assessment: patient administered narcotics - no. The following High Risk [facility] Discharge criteria are identified: None. Admitted to ICU accompanied by nurse, accompanied by tech, via stretcher, with oxygen, on monitor, with chart. Condition: stable. Admission hand-off: Report called to [facility] ICU. Property :Personal belongings accompany Pt. 17:39 Patient left the ED. [facility] Signatures: Dispatcher [employer] EDVT Li Andres MD MD sd1 Marcia Hughes, RN RN Renee LuisRN RN dsChandrakant Umaña 6 Zhang Carr, CHAKA SENIOR DOT NET DEVELOPER Daisy Oviedo 5 Belle Arenas,RN RN kc3 Lisa Bond nb2 Barrington Senior RN ms2 Corrections: (The following items were deleted from the chart) 12:48 12:41 MAGNESIUM LEVEL+LAB sent. [facility] EDVT 17:08 16:50 General: Appears in no apparent distress, comfortable, Behavior is appropriate kc3 for age, cooperative, kc3 MTDD
--- NOTE | 2017-01-17 17:40 | EDDOCDS ---
Physician Documentation [facility] Name: Karen Painter Age: 71 yrs Sex: Female : 1945 Arrival Date: 01/17/2017 Time: 11:27 Bed 15 Private MD: Jann Sherman E. Disposition: 01/17/17 15:00 Hospitalization ordered by Vero [place] for Inpatient Admission. Preliminary diagnosis are Acute kidney failure, Hyperglycemia, unspecified, Acidosis. - Bed requested for M ICU. - Status is Inpatient Admission. mcp - Condition is Stable. - Problem is new. - Symptoms are unchanged. Historical: - Allergies: nkda, but reports headache with keflex; - Home Meds: 1. magnesium oxide 400 mg Oral cap 400 mg twice a day (Last dose: 01/17/2017 06:00) 2. Lexapro 10 mg Oral tab 1 tab once daily (Last dose: 01/17/2017 06:00) 3. Eliquis 5 mg oral tab 1 tab 2 times per day (Last dose: 01/17/2017 06:00) 4. esomeprazole magnesium 40 mg Oral cpDR 1 cap once daily (Last dose: 01/17/2017 06:00) 5. Nitrostat 0.4 mg SL subl 1 tab every 5 minutes (Last dose: Unknown) 6. Pravachol 20 mg Oral tab 1 tab once daily (Last dose: 01/17/2017 06:00) 7. Levaquin 500 mg Oral tab 1 tab once daily (Last dose: 01/17/2017 06:00) 8. ramipril 10 mg Oral cap 1 cap once daily (Last dose: 01/17/2017 06:00) 9. bisoprolol fumarate 5 mg oral tab 1 tab twice daily (Last dose: 01/17/2017 06:00) 10. Tylenol 500 mg Oral as needed (Last dose: Unknown) 11. Humalog 100 unit/mL Sub-Q soln sliding scale at meals and bedtime - PMHx: Atrial Fib; CHF; COPD; Diabetes - IDDM: controlled; hyperlipidemia; Hypertension; Kidney stones; Osteoporosis; reflux; renal insufficency; venous insufficiency; - PSHx: none; - Social history: Smoking status: Patient states former smoker of tobacco. No barriers to communication noted, The patient speaks fluent Gabonese, Speaks appropriately for age. - Family history: Not pertinent. - : The pt / caregiver states he / she is on anticoagulants: [facility] Home medication list is obtained from pill bottles. - Exposure Risk Screening:: None identified. Vital Signs: 01/17 11:38 BP 98 / 55 (auto/); kc3 11:38 Pulse 96 MON; Pulse Ox 96% ; kc3 11:40 BP 98 / 55; Pulse 103; Resp 22; Pulse Ox 96% on R/A; Weight 136.98 kg / 301.99 lbs (R); nb2 Height 5 ft. 4 in. (162.56 cm); 11:45 Temp 97.2; Pain 0/10; nb2 11:49 Pulse 66 MON; Pulse Ox 97% ; kc3 11:51 BP 84 / 47 (auto/); kc3 12:05 BP 91 / 61 (auto/); kc3 12:06 Pulse 52 MON; Pulse Ox 91% ; kc3 12:28 BP 105 / 60 (auto/); kc3 12:28 Pulse 78 MON; Pulse Ox 99% ; kc3 14:06 Pulse 70 MON; Pulse Ox 97% ; kc3 14:08 BP 124 / 73 (auto/); kc3 16:12 BP 114 / 61 (auto/); kc3 16:15 Pulse 92 MON; Pulse Ox 98% ; kc3 16:59 BP 109 / 73 (auto/); kc3 17:05 Pulse 88 MON; Pulse Ox 98% ; kc3 17:34 BP 120 / 72; Pulse 85; Resp 22; Temp 98.6(TE); Pulse Ox 98% 2 lpm ; Pain 0/10; kc3 11:40 Body Mass Index 51.84 (136.98 kg, 162.56 cm) nb2 MDM: 11:52 -Blood Culture (Adults Only), peripheral from different site, or from device/port/PICC sd1 etc. if present ordered. 11:52 Undress patient appropriately for examination ordered. sd1 11:52 NS 0.9% 1000 ml IV at 250 mL/hr continuous ordered. sd1 11:53 CT Head Without Contrast Ordered. EDMS 11:53 -Blood Culture Ordered. EDMS 11:53 Amylase Ordered. EDMS 11:53 Basic Metabolic Profile Ordered. EDMS 11:53 CBC with Diff Ordered. EDMS 11:53 Lipase Ordered. EDMS 11:53 Liver Profile Ordered. EDMS 11:53 Prothrombin Time Profile\E\INR Ordered. EDMS 11:53 Urinalysis Ordered. EDMS 11:53 Urine Culture Ordered. EDMS 11:54 Lactic Acid (Stern tube on ice) Ordered. EDMS 11:54 Chest, 1 View Ordered. EDMS 11:58 -Blood Culture (Adults Only), peripheral from different site, or from device/port/PICC jrd etc. if present complete. 12:01 BLOOD CULTURES Ordered. EDMS 12:17 Stool samples ordered. sd1 12:19 GASTROINTESTINAL (GI) PANEL Ordered. EDMS 12:19 Spine. Lumbosacral, Complete Ordered. EDMS 12:19 Spine, Thoracic 3 Views Ordered. EDMS 12:43 Promethazine 12.5 mg IVP once; dilute and administer 30-60 minutes ordered. sd1 12:46 MAGNESIUM LEVEL Ordered. EDMS 13:12 [facility] Payment Agreement was scanned into [employer] and attached to record. jp5 13:12 Financial registration complete. jp5 13:14 DIFFERENTIAL NO CHARGE Ordered. EDMS 13:14 PLATELET ESTIMATE Ordered. EDMS 13:20 CBC with Diff Reviewed. sd1 13:20 Prothrombin Time Profile\E\INR Reviewed. sd1 13:20 CT Head Without Contrast Reviewed. sd1 13:20 Chest, 1 View Reviewed. sd1 13:25 Amylase Reviewed. sd1 13:25 Basic Metabolic Profile Reviewed. sd1 13:25 Lipase Reviewed. sd1 13:25 Liver Profile Reviewed. sd1 13:25 MAGNESIUM LEVEL Reviewed. sd1 13:25 Osmolality, Serum Ordered. EDMS 13:26 NS 0.9% 1000 ml IV at 250 mL/hr continuous ordered. sd1 13:26 Insulin Regular Human Infusion (0.1units/kg/hr) 0.1 units/kg/hr IV at calculated rate sd1 Per protocol; 10 units/hr ordered. 13:26 cefTRIAXone 1 grams IVPB once over 30 mins; dilute in 50mL of NS or D5W ordered. sd1 13:27 Accucheck hourly ordered. sd1 13:28 BED REQUEST+ADM ordered. EDMS 13:33 Lactic Acid (Stern tube on ice) Reviewed. sd1 13:34 Misc. Nursing Order ordered. sd1 13:35 Misc. Nursing Order ordered. sd1 13:36 CARDIAC INJURY PROFILE Ordered. EDMS 13:36 TROPONIN Ordered. EDMS 13:53 Amylase Reviewed. sd1 13:53 Basic Metabolic Profile Reviewed. sd1 13:53 Lipase Reviewed. sd1 13:53 Liver Profile Reviewed. sd1 13:53 MAGNESIUM LEVEL Reviewed. sd1 13:55 CT ABD & PELVIS: No Contrast Ordered. EDMS 14:05 Amylase Reviewed. sd1 14:05 Basic Metabolic Profile Reviewed. sd1 14:05 Lipase Reviewed. sd1 14:05 Liver Profile Reviewed. sd1 14:05 MAGNESIUM LEVEL Reviewed. sd1 14:05 Osmolality, Serum Reviewed. sd1 14:05 TROPONIN Reviewed. sd1 14:05 Call Respiratory ordered. sd1 14:07 -Arterial Blood Gas Ordered. EDMS 14:11 Amylase Reviewed. sd1 14:11 Basic Metabolic Profile Reviewed. sd1 14:11 Lipase Reviewed. sd1 14:11 Liver Profile Reviewed. sd1 14:11 MAGNESIUM LEVEL Reviewed. sd1 14:11 CARDIAC INJURY PROFILE Reviewed. sd1 14:11 TROPONIN Reviewed. sd1 14:21 Call Respiratory complete. jrd 14:33 RESPIRATORY PANEL Ordered. EDMS 14:43 ECG WITH READING ER PHYS+CARDIAG ordered. EDMS 14:54 CBC with Diff Reviewed. sd1 14:54 -Arterial Blood Gas Reviewed. sd1 14:54 PLATELET ESTIMATE Reviewed. sd1 14:54 Spine. Lumbosacral, Complete Reviewed. sd1 14:54 Spine, Thoracic 3 Views Reviewed. sd1 16:27 Admission / Observation Status ordered. EDMS 16:27 NPO DIET ordered. EDMS 16:28 LACTIC ACID LEVEL, LACTATE Ordered. EDMS 16:28 BASIC METABOLIC PROFILE Ordered. EDMS 16:33 CARDIAC MARKER PANEL Ordered. EDMS 16:33 TROPONIN Ordered. EDMS Point of Care Testing: Blood Glucose: 15:20 Blood Glucose: High; kc3 16:49 Blood Glucose: High; kc3 Ranges: Administered Medications: 12:41 Drug: NS 0.9% 1000 ml [sodium chloride 0.9 % intravenous solution] Route: IV; Rate: 250 kc3 mL/hr; Site: right hand; 12:54 Drug: Promethazine 12.5 mg [promethazine 25 mg/mL injection solution (0.5 mL)] Route: kc3 IVP; Site: right hand; 13:26 CANCELLED (Other Intervention Used): Cefepime 1 grams IVPB at 100 mL/hr once over 30 sd1 mins; dilute in 50mL of NS or D5W 13:32 Not Given (Duplicate Order): NS 0.9% 1000 ml IV at 250 mL/hr continuous kc3 14:18 Drug: Insulin Regular Human Infusion (0.1units/kg/hr) 13.698 units/hr [insulin regular kc3 human 100 unit/mL injection solution] {Co-Signature: ms2 (Barrington Senior RN).} Route: IV; Rate: calculated rate; Site: left wrist; 14:18 Drug: cefTRIAXone 1 grams [ceftriaxone 1 gram solution for injection] Route: IVPB; kc3 Infused Over: 30 mins; Site: right hand; 16:48 Follow up: IV Status: Completed infusion kc3 Signatures: Dispatcher [employer] EDLi Cheung MD MD sd1 Marcia Hughes RN RN Renee Luis RN RN dsf Zhang Carr, BUSINESS OPERATIONS COORDINATOR BUSINESS OPERATIONS COORDINATOR d Daisy Vanegas jp5 Barrington Bradford RN RN [facility] Belle Arenas RN RN kc3 Barrington Senior RN ms2 The chart was reviewed and I authenticate all verbal orders and agree with the evaluation and treatment provided.Corrections: (The following items were deleted from the chart) 12:19 12:18 GASTROINTESTINAL (GI) PANEL+TEMITOPE ordered. EDMS EDMS 12:48 11:54 MAGNESIUM LEVEL+LAB ordered. EDMS EDMS 13:26 13:25 Cefepime 1 grams IVPB at 100 mL/hr once over 30 mins; dilute in 50mL of NS or D5W sd1 ordered. sd1 13:35 13:28 CARDIAC INJURY PROFILE+LAB ordered. EDMS EDMS 13:35 13:28 TROPONIN+LAB ordered. EDMS EDMS Attachments: 13:12 [facility] Payment Agreement jp5 [facility]
[2017-01-17] MEDS ORDERED: INSULIN IV RATE CHANGE DOCUMENTATION ML/HR XX SCH ×2 (17:45→18:30)
--- NOTE | 2017-01-17 20:17 | HPE ---
DATE OF ADMISSION: 01/17/2017 PRIMARY CARE PROVIDER: Dr. Jann Sherman REASON FOR ADMISSION: Sepsis. HISTORY OF PRESENT ILLNESS: The patient is a 71-year-old female who presented to the emergency room after she had a fall at 06:30 this morning and was unable to get up. She stated she got up to go to the fridge and fell in the kitchen and was unable to get up due to weakness in her knees. She became incontinent of urine and stool, was unable to reach the phone, stayed on the floor until her daily production cloth cutter came by, called the ambulance, found her to have a fasting blood sugar of 587, systolic blood pressure of 75/43. The patient has a past medical history significant for insulin-dependent diabetes, chronic obstructive pulmonary disease (COPD), atrial fibrillation, congestive heart failure, hypertension, hyperlipidemia, kidney disease, diastolic heart failure. In the emergency room, the patient stated that she has been having nausea, vomiting and diarrhea for the past four days, has not been able to get around her house. She normally has a nurse that comes by to the house three times a week. The patient denied any fevers or chills. Denied any chest pain or shortness of breath but was complaining of abdominal pain. In the emergency room, the patient was found to have lactic acidosis of 7.8. She had a leukocytosis of 25.6. She was given normal saline 250 mL bolus. She was given one dose of ceftriaxone and was started on an insulin drip, and admitted under hospitalist service for [facility]. REVIEW OF SYSTEMS: 12-point review of systems was obtained, all of which was negative except for those mentioned above. PAST MEDICAL HISTORY: Significant for: 1. Atrial fibrillation. 2. Hypertension. 3. COPD. 4. Insulin-dependent diabetes. 5. Hyperlipidemia. 6. Renal insufficiency. 7. Diastolic congestive heart failure. PAST SURGICAL HISTORY: 1. Atrial flutter ablation. 2. Incision and drainage (I and D) in bilateral shoulders. SOCIAL HISTORY: History of tobacco abuse. Currently does not smoke, does not drink. Lives at home alone with nurse that comes by the house 2-3 times a week. ALLERGIES: No known drug allergies. Reports headaches with KEFLEX. HOME MEDICATIONS: - Tylenol 325 mg every four hours as needed for pain - Eliquis 5 mg by mouth twice a day - bisoprolol 5 mg by mouth twice a day - Lexapro 10 mg by mouth daily - Nexium 40 mg by mouth daily - insulin sliding scale - magnesium oxide 400 mg by mouth twice a day - nitroglycerin 0.4 mg sublingual as needed for chest pain - Pravachol 40 mg by mouth daily - ramipril 10 mg by mouth daily FAMILY HISTORY: Noncontributory. PHYSICAL FINDINGS" VITAL SIGNS: Blood pressure on admission 98/55, pulse 96, respiratory rate 22, temperature 97.2, pulse oximetry 96% on room air. HEENT: Pupils equal, round, reactive to light and accommodation. NECK: Supple. No jugular venous distention (JVD). LUNGS: Clear to auscultation bilaterally. ABDOMEN: Positive bowel sounds. Soft. The patient has multiple wounds on the abdomen and states she sees Dr. Cook for. EXTREMITIES: The patient had some scratches bilateral extremities. No clubbing, cyanosis or edema. NEUROLOGIC: Cranial nerves II-XII greatly intact. No focal deficits. LABORATORY FINDINGS: WBC 25.6, hemoglobin 13.1, hematocrit of 45.9, platelet count 223. Sodium 134, potassium 4.3, chloride 102, BUN 43, creatinine 2.94, glucose initially was 710. Lactic acid 7.8, repeat 4.4. INR 2.71, pH 7.29, pCO2 24.2, pO2 93.1, bicarb 11.4. Urinalysis: Turbid in appearance, ketones in the urine trace. Blood in the urine two. WBCs too many to count, bacteria 3+. IMAGING: Abdominal and pelvic CT was done in the emergency room which showed small pericardial effusion. No ascites. No obvious acute inter-abdomen or pelvic pathology. CT of the head was done: Minimal volume loss, small vessel ischemic disease. Chest x-ray: Mild pulmonary vascular congestion. Thoracic and lumbar spine x-rays were negative for any acute fracture or compression injury. ASSESSMENT/PLAN: 1. Sepsis secondary to urinary source. We will continue the patient on ceftriaxone. Urine and blood cultures are pending. Lactic acidosis improving. The patient is currently afebrile. Blood pressure 114/61 after receiving 250 mL bolus in the emergency room. Will continue Tylenol as needed for pain and fever. We will continue intravenous (IV) fluids at a rate of 100 mL an hour times one liter, then discontinue. 2. Lactic acidosis secondary to sepsis, trending down. 3. Hypomagnesemia. We will replace and recheck in the morning. 4. Abnormal urinalysis. Continue ceftriaxone; received first dose in the emergency room. Urine culture pending. 5. Hypotension initially. Continue IV fluids at a rate of 100 mL an hour, then discontinue after one liter. 6. Hyperglycemia. The patient has a history of hyperglycemia, had a recent admission. Due to that, we will continue insulin drip. Continue nothing by mouth. 7. History of diastolic congestive heart failure. The patient does not appear to be overloaded at this time. We will continue gentle hydration. 8. History of atrial fibrillation. We will continue the patient's Eliquis. We will hold starting the patient's bisoprolol at this time due to borderline blood pressure. 9. History of chronic obstructive pulmonary disease (COPD). Will start the patient on oxygen, titrate to keep oxygen saturation between 88 and 92. 10. Deep venous thrombosis (DVT) prophylaxis. Continue the patient's Eliquis.
[2017-01-17] MEDS: INSULIN IV RATE CHANGE DOCUMENTATION ML/HR XX SCH ×2 (20:40→22:23)
[2017-01-17] MEDS: MAG SULF 1GM/100ML (MAG RUN) 1 GM in APPROPRIATE DILUENT 1 EA IV SCH ×2 (20:46→20:56)
[2017-01-17 20:54] LABS: CALCIUM LEVEL 7.2 MG/DL (8.8-10.2); CREATININE FOR GFR 2.25 MG/DL (0.55-1.02); GLOMERULAR FILTRATION RATE 22.7 (>39); POTASSIUM SERUM 3.2 MEQ/L (3.5-5.1)
[2017-01-17] MEDS: NS 1,000 ML IV SCH ×2 (20:57→23:45)
[2017-01-17] MEDS ORDERED: HumaLOG INSULIN (NovoLOG) PER UNIT SC SCH (21:00)
[2017-01-17] MEDS ORDERED: APIXABAN 5 MG TAB (ELIQUIS) PO SCH (21:00)
[2017-01-17] MEDS ORDERED: SODIUM CHLORIDE 0.9% 1000 ML IV ONE ×2 (21:00→22:30)
[2017-01-17] MEDS ORDERED: MAGNESIUM OXIDE 400 MG TAB (MAG-OX) PO SCH (21:00)
[2017-01-17] MEDS ORDERED: POTASSIUM CHLORIDE 10 MEQ SR TABLET PO ONE (21:15)
[2017-01-17] MEDS ORDERED: ASPIRIN 325 MG TAB PO ONE (22:15)
[2017-01-17] MEDS: INSULIN HUMAN REGULAR 100 UNITS in NS 99 ML IV SCH (22:22)
--- NOTE | 2017-01-17 22:37 | ECGEPIP ---
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 No significant change compared with 12/09/2016. Electronically Signed On 01-17-2017 22:37:47 EST by Perez Wiggins
[2017-01-17] MEDS ORDERED: PHENYLEPHRINE INJ 10MG/ML VIAL (J2370) As Ordered ONE (23:22)
[2017-01-17] MEDS ORDERED: VASOPRESSIN INJ 20 UNITS in NS 500 ML IV SCH (23:32)
[2017-01-17] MEDS ORDERED: VANCOMYCIN 1000 MG/20 ML VIAL (J3370) As Ordered ONE (23:33)
[2017-01-17] MEDS ORDERED: NOREPINEPHRINE 4 MG/4 ML AMP As Ordered ONE (23:34)
[2017-01-17] MEDS ORDERED: VASOPRESSIN INJ 20 UNITS/ML VIAL As Ordered ONE (23:36)
[2017-01-17] MEDS ORDERED: SODIUM CHLORIDE 0.9% 1000 ML IV SCH (23:45)
[2017-01-17] MEDS ORDERED: VANCOMYCIN HCL 1,000 MG, VIAL MATE ADAPTER 1 EACH in D5W 250 ML IV SCH (23:45)
[2017-01-18] VITALS (46 sets, daily range): BP systolic 57–132; BP diastolic 35–94
[2017-01-18] MEDS ORDERED: PIPERACILLIN/TAZOBACTAM SOD 2.25 GM in D5W MINI-BAG PLUS 50 ML IV SCH ×2
[2017-01-18] MEDS ORDERED: MEROPENEM INJ 1 GM in D5W MINI-BAG PLUS 100 ML IV SCH ×2
--- NOTE | 2017-01-18 00:24 | IPNPDOC ---
Date Seen The patient was seen on 01/18/17. Progress Note SUBJECTIVE: Rapid assessment was called on the patient. Pt was not communicating clearly when I entered the room. Her SBP was in the mid 40s. OBJECTIVE Pt was hypotensive. AMS. In moderate distress. Warm to touch ASSESSMENT AND PLAN: 71 y/o F in septic shock. We will start a central line, surgeon was notified. Dr. Khan was paged and hospitalist talked with him. Sepsis protocol was initiated. Pt was started on meropenem, and Zosyn. Blood cx and lactate ordered, pending results. Pt given 2L IVF bolus. Hotel Guest Service Agent and drier tender naphthalene was notified. We will start pressors when central line is placed. GME ATTESTATION My preceptor for this patient encounter was physically present in the building during the encounter and was fully available. As needed, all aspects of the patient interview, examination, medical decision making process, and medical care plan development were reviewed and approved by the preceptor. Preceptor is aware and concurs with the plan as stated in the body of this note and will attest to such by his/her cosignature. VS, I&O, 24H, [facility] Vital Signs/I&O Vital Signs Date Time Temp Pulse Resp B/P Pulse Ox O2 Delivery O2 Flow Rate FiO2 01/17/17 23:34 97 Nasal Cannula 2.0 01/17/17 16:45 97.0 86 22 114/61 Laboratory Data 24H LABS Laboratory Tests 2 01/17/17 12:39: Aspartate Amino Transf (AST/SGOT) 53H, Alanine Aminotransferase (ALT/SGPT) 31, Alkaline Phosphatase 149H, Total Bilirubin 2.4H, Direct Bilirubin 1.2H, Albumin 2.9L, Albumin/Globulin Ratio 0.71L, Amylase Level 13L, Anion Gap 20H, Anisocytosis 1+, Band Neutrophils 4, White Blood Count 25.6H, Red Blood Count 4.98, Hemoglobin 13.1, Hematocrit 45.9, Mean Corpuscular Volume 92.2, Mean Corpuscular Hemoglobin 26.3L, Mean Corpuscular Hemoglobin Concent 28.6L, Red Cell Distribution Width 17.0H, Platelet Count 223, Neutrophils (%) (Auto) , Lymphocytes (%) (Auto) , Monocytes (%) (Auto) , Eosinophils (%) (Auto) , Basophils (%) (Auto) , Neutrophils # (Auto) , Lymphocytes # (Auto) , Monocytes # (Auto) , Eosinophils # (Auto) , Basophils # (Auto) , Calcium Level 10.1, Creatine Kinase MB 3.9H, Creatine Kinase MB Relative Index 1.96, Glomerular Filtration Rate 15.7L, Hypochromasia 2+, Lactic Acid (Sepsis) 7.8*H, Large Unclassified Cells # , Large Unclassified Cells % , Lipase 32L, Lymphocytes ( Manual) 4L, Magnesium Level 1.5L, Metamyelocytes 1H, Monocytes (Manual) 3, Neutrophils 88H, Osmolality 332H, Platelet Estimate NORMAL, Prothromb Time International Ratio 2.71, Prothrombin Time 28.8H, Total Creatine Kinase 198H, Total Protein 7.0, Troponin I 0.19H 01/17/17 14:30: Arterial Blood pH 7.292L, Arterial Blood Partial Pressure CO2 24.2L, Arterial Blood Partial Pressure O2 93.1, Arterial Blood Total CO2 12.2L, Arterial Blood HCO3 11.4L, Arterial Blood Base Excess -13.3L, Arterial Blood Oxygen Saturation 96.4, Blood Gas Bicarbonate Standard 14.2L, Oxygen Delivery Device NASAL ARTI 01/17/17 14:55: Urine Amorphous Sediment , Urine Appearance TURBIDH, Urine Color YELLOW, Urine pH 5.0, Urine Specific [place] 1.013, Urine Protein 3+H, Urine Glucose (UA) 3+H , Urine Ketones TRACEH, Urine Urobilinogen 0.2, Urine Bilirubin NEGATIVE, Urine Leukocyte Esterase 3+H, Urine Bacteria (Auto) 3+H, Urine Blood 2+H, Urine Calcium Carbonate Cryst(Auto) , Urine Calcium Oxalate Cryst (Auto) , Urine Calcium Phosphate Gabrielle (Auto) , Urine Cellular Casts , Urine Cystine Crystals , Urine Granular Casts (Auto) , Urine Hyaline Casts (Auto) 0, Urine Leucine Crystals , Urine Mucus (Auto) SMALL, Urine Nitrite NEGATIVE, Urine Oval Fat Bodies (Auto) , Urine RBC (Auto) 32H, Urine Renal Epithelial Cells , Urine Sperm (Auto) , Urine Squamous Epithelial Cells 4, Urine Transitional Epithelial Cells , Urine Trichomonas (Auto) , Urine Triple Phosphate Cryst (Auto) , Urine Tyrosine Crystals , Urine Uric Acid Crystals (Auto) , Urine WBC (Auto) TNTCH, Urine Waxy Casts (Auto) , Urine Yeast-Like Cells (Auto) 2/21/17 17:02: Anion Gap 15, Calcium Level 9.3, Glomerular Filtration Rate 16.6L, Lactic Acid ( Sepsis) 4.4*H, Blood Urea Nitrogen 43H, Creatinine 2.95H, Sodium Level 134L, Potassium Level 4.3, Chloride Level 102, Carbon Dioxide Level 17L 01/17/17 18:26: Bedside Glucose (Misc Panel) 596*H 01/17/17 20:22: Anion Gap 12, Blood Urea Nitrogen 36H, Creatinine 2.25H, Sodium Level 141#, Potassium Level 3.2#L, Chloride Level 111H, Carbon Dioxide Level 18L, Calcium Level 7.2#L, Total Creatine Kinase 221H, Creatine Kinase MB 9.1H, Creatine Kinase MB Relative Index 4.11H, Glomerular Filtration Rate 22.7L, Troponin I 3.65#*H 01/17/17 20:37: Bedside Glucose (Misc Panel) 598*H 01/17/17 21:32: Lactic Acid (Sepsis) 4.9*H 01/17/17 22:05: Bedside Glucose (Misc Panel) 517*H CBC/BMP Laboratory Tests 01/17/17 12:39 Red Blood Count 4.98, Mean Corpuscular Volume 92.2, Mean Corpuscular Hemoglobin 26.3 L, Mean Corpuscular Hemoglobin Concent 28.6 L, Red Cell Distribution Width 17.0 H, Neutrophils (%) (Auto) , Lymphocytes (%) (Auto) , Monocytes (%) (Auto) , Eosinophils (%) (Auto) , Basophils (%) (Auto) , Neutrophils # (Auto) , Lymphocytes # (Auto) , Monocytes # (Auto) , Eosinophils # (Auto) , Basophils # ( Auto) 01/17/17 17:02 Calcium Level 9.3 01/17/17 20:22 Calcium Level 7.2 #L, Total Creatine Kinase 221 H Microbiology Microbiology 01/17/17 Blood Culture, Received Pending 01/17/17 Blood Culture, Received Pending 01/17/17 Respiratory Virus Panel (PCR) (TEMITOPE) - Final, Complete 01/17/17 Urine Culture, Received Pending JUAN ROBERT DO Jan 18, 2017 00:24 LISS VALLADARES MD Jan 18, 2017 00:47
[2017-01-18] MEDS: NS 1,000 ML IV SCH ×5 (00:45→22:08)
[2017-01-18] MEDS: NOREPINEPHRINE BITARTRATE 8 MG in D5W 500 ML IV SCH (01:28)
[2017-01-18] MEDS: PANTOPRAZOLE 40MG INJ (PROTONIX) (C9113) IV SCH (01:41)
[2017-01-18] MEDS: MEROPENEM INJ 500 MG in D5W MINI-BAG PLUS 100 ML IV SCH ×2 (01:41→13:21)
--- NOTE | 2017-01-18 02:20 | IPNPDOC ---
Subjective Date Seen The patient was seen on 01/18/17. Subjective Chief Complaint/HPI The patient is a 71-year-old female admitted with a reason for visit of Sepsis. Eyes: Denies: Pain Pulmonary: Reports: Dyspnea (improved she says in the last couple of hours.) Objective Physical Examination General Exam: Positive: Alert, Moderate Distress Eye Exam: Positive: PERRLA ENT Exam: Positive: Atraumatic, Tongue Midline Neck Exam: Positive: Supple, Negative: thyromegaly Chest Exam: Positive: Clear to auscultation, Negative: Rales, Rhonchi, Wheezing Heart Exam: Positive: Regular Rhythm, Negative: Rate Normal (irregular rhythm, tachycardic, rate about 117) Abdomen Exam: Positive: Soft, Negative: Normal bowel sounds (hypoactive), Tenderness Skin Exam: Positive: Lesion (lesions on abdomen, apparently recently evaluated and treated by Dr. Cook) Assessment /Plan Problems (1) Sepsis Status: Acute Response to Treatment: Uncontrolled Discussed With: Massage Coordinator (on meropenem and vanco at this point. fluid resuscitation and norepinephrine for pressure support. CVP monitored by limo driver.), Family with Pt Consent Problem Specific Plan: Consult Specialist, Monitor Clinically, Repeat Tests (2) Diabetes type 2, uncontrolled Status: Chronic Response to Treatment: Uncontrolled (on insulin drip.) Problem Text: on insulin drip (3) HTN (hypertension) Status: Chronic Problem Specific Plan: Monitor Clinically (4) Atrial fibrillation Status: Chronic Response to Treatment: Worse Problem Specific Plan: Consult Specialist, Monitor Clinically (beta constance held due to sepsis and shock. heart rate faster than desired at present but rate control med can only be added when pressure is adequate) Problem Text: rate control not optimal but pressure maintenance takes priority (5) UTI (urinary tract infection) Status: Acute Problem Text: on meropenem and vanco. meropenem dose adjusted for acute renal failure; pharmacy consult for vanco dose adjust (6) Renal failure (ARF), acute on chronic Status: Acute Problem Specific Plan: Monitor Clinically, Repeat Labs Problem Text: expect renal function to improve with remediation of sepsis state. nephrology consult is option Plan/VTE VTE Prophylaxis Ordered?: Yes VTE Exclusion Pharmacological: Other (INR elevated. patient was on Eliquis but held for now due to acute sepsis syndrome ) Plan/Urinary Catheter Urinary Catheter: Place Kaufman Reason for insertion/continuin: Critical Pt monitoring VS, I&O, 24H, [place] Vital Signs/I&O Vital Signs Date Time Temp Pulse Resp B/P Pulse Ox O2 Delivery O2 Flow Rate FiO2 01/18/17 00:12 142 127/63 99 Nasal Cannula 2.0 01/18/17 00:03 97.6 22 Laboratory Data 24H LABS Laboratory Tests 2 01/17/17 12:39: Aspartate Amino Transf (AST/SGOT) 53H, Alanine Aminotransferase (ALT/SGPT) 31, Alkaline Phosphatase 149H, Total Bilirubin 2.4H, Direct Bilirubin 1.2H, Albumin 2.9L, Albumin/Globulin Ratio 0.71L, Amylase Level 13L, Anion Gap 20H, Anisocytosis 1+, Band Neutrophils 4, White Blood Count 25.6H, Red Blood Count 4.98, Hemoglobin 13.1, Hematocrit 45.9, Mean Corpuscular Volume 92.2, Mean Corpuscular Hemoglobin 26.3L, Mean Corpuscular Hemoglobin Concent 28.6L, Red Cell Distribution Width 17.0H, Platelet Count 223, Neutrophils (%) (Auto) , Lymphocytes (%) (Auto) , Monocytes (%) (Auto) , Eosinophils (%) (Auto) , Basophils (%) (Auto) , Neutrophils # (Auto) , Lymphocytes # (Auto) , Monocytes # (Auto) , Eosinophils # (Auto) , Basophils # (Auto) , Calcium Level 10.1, Creatine Kinase MB 3.9H, Creatine Kinase MB Relative Index 1.96, Glomerular Filtration Rate 15.7L, Hypochromasia 2+, Lactic Acid (Sepsis) 7.8*H, Large Unclassified Cells # , Large Unclassified Cells % , Lipase 32L, Lymphocytes ( Manual) 4L, Magnesium Level 1.5L, Metamyelocytes 1H, Monocytes (Manual) 3, Neutrophils 88H, Osmolality 332H, Platelet Estimate NORMAL, Prothromb Time International Ratio 2.71, Prothrombin Time 28.8H, Total Creatine Kinase 198H, Total Protein 7.0, Troponin I 0.19H 01/17/17 14:30: Arterial Blood pH 7.292L, Arterial Blood Partial Pressure CO2 24.2L, Arterial Blood Partial Pressure O2 93.1, Arterial Blood Total CO2 12.2L, Arterial Blood HCO3 11.4L, Arterial Blood Base Excess -13.3L, Arterial Blood Oxygen Saturation 96.4, Blood Gas Bicarbonate Standard 14.2L, Oxygen Delivery Device NASAL ARTI 01/17/17 14:55: Urine Amorphous Sediment , Urine Appearance TURBIDH, Urine Color YELLOW, Urine pH 5.0, Urine Specific [place] 1.013, Urine Protein 3+H, Urine Glucose (UA) 3+H , Urine Ketones TRACEH, Urine Urobilinogen 0.2, Urine Bilirubin NEGATIVE, Urine Leukocyte Esterase 3+H, Urine Bacteria (Auto) 3+H, Urine Blood 2+H, Urine Calcium Carbonate Cryst(Auto) , Urine Calcium Oxalate Cryst (Auto) , Urine Calcium Phosphate Gabrielle (Auto) , Urine Cellular Casts , Urine Cystine Crystals , Urine Granular Casts (Auto) , Urine Hyaline Casts (Auto) 0, Urine Leucine Crystals , Urine Mucus (Auto) SMALL, Urine Nitrite NEGATIVE, Urine Oval Fat Bodies (Auto) , Urine RBC (Auto) 32H, Urine Renal Epithelial Cells , Urine Sperm (Auto) , Urine Squamous Epithelial Cells 4, Urine Transitional Epithelial Cells , Urine Trichomonas (Auto) , Urine Triple Phosphate Cryst (Auto) , Urine Tyrosine Crystals , Urine Uric Acid Crystals (Auto) , Urine WBC (Auto) TNTCH, Urine Waxy Casts (Auto) , Urine Yeast-Like Cells (Auto) 01/17/17 17:02: Anion Gap 15, Calcium Level 9.3, Glomerular Filtration Rate 16.6L, Lactic Acid ( Sepsis) 4.4*H, Blood Urea Nitrogen 43H, Creatinine 2.95H, Sodium Level 134L, Potassium Level 4.3, Chloride Level 102, Carbon Dioxide Level 17L 01/17/17 18:26: Bedside Glucose (Misc Panel) 596*H 01/17/17 20:22: Anion Gap 12, Blood Urea Nitrogen 36H, Creatinine 2.25H, Sodium Level 141#, Potassium Level 3.2#L, Chloride Level 111H, Carbon Dioxide Level 18L, Calcium Level 7.2#L, Total Creatine Kinase 221H, Creatine Kinase MB 9.1H, Creatine Kinase MB Relative Index 4.11H, Glomerular Filtration Rate 22.7L, Troponin I 3.65#*H 01/17/17 20:37: Bedside Glucose (Misc Panel) 598*H 01/17/17 21:32: Lactic Acid (Sepsis) 4.9*H 01/17/17 22:05: Bedside Glucose (Misc Panel) 517*H 01/18/17 01:20: D-Dimer, Quantitative 1005.4H, Fibrinogen 618H CBC/BMP Laboratory Tests 01/17/17 12:39 Red Blood Count 4.98, Mean Corpuscular Volume 92.2, Mean Corpuscular Hemoglobin 26.3 L, Mean Corpuscular Hemoglobin Concent 28.6 L, Red Cell Distribution Width 17.0 H, Neutrophils (%) (Auto) , Lymphocytes (%) (Auto) , Monocytes (%) (Auto) , Eosinophils (%) (Auto) , Basophils (%) (Auto) , Neutrophils # (Auto) , Lymphocytes # (Auto) , Monocytes # (Auto) , Eosinophils # (Auto) , Basophils # ( Auto) 01/17/17 17:02 Calcium Level 9.3 01/17/17 20:22 Calcium Level 7.2 #L, Total Creatine Kinase 221 H Microbiology Microbiology 01/18/17 Blood Culture, Received Pending 01/17/17 Blood Culture, Received Pending 01/17/17 Blood Culture, Received Pending 01/17/17 Respiratory Virus Panel (PCR) ([facility]) - Final, Complete 01/17/17 Urine Culture, Received Pending Nathan Khan MD Jan 18, 2017 02:20
[2017-01-18] MEDS ORDERED: LACTATED RINGER'S 1000 ML IV ONE (02:30)
[2017-01-18] MEDS ORDERED: PHENYLEPHRINE HCL INJ 50 MG in D5W 500 ML IV SCH (03:45)
[2017-01-18] MEDS: INSULIN HUMAN REGULAR 100 UNITS in NS 99 ML IV SCH ×4 (04:07→18:03)
[2017-01-18 04:24] LABS: DIFF SLIDE NUMBER 85; MEAN CORPUSCULAR HEMOGLOBIN 26.1 pg (27.0-33.0); MEAN CORPUSCULAR HGB CONC 30.2 g/dl (32.0-36.5); PLATELET COUNT, AUTOMATED 232 k/mm3 (150-450); RED CELL DISTRIBUTION WIDTH 17.6 % (11.5-14.5)
[2017-01-18 04:25] LABS: MEAN CORPUSCULAR VOLUME 86.5 fl (80.0-96.0)
[2017-01-18 04:33] LABS: ALBUMIN 2.2 GM/DL (3.2-5.2); ALBUMIN/GLOBULIN RATIO 0.76 (1.00-1.93); BILIRUBIN,TOTAL 0.7 MG/DL (0.2-1.0); CALCIUM LEVEL 8.6 MG/DL (8.8-10.2); CREATININE FOR GFR 2.52 MG/DL (0.55-1.02); GLOMERULAR FILTRATION RATE 19.9 (>39); MAGNESIUM LEVEL 1.7 MG/DL (1.8-2.4); PHOSPHORUS LEVEL 2.1 MG/DL (2.5-4.9); POTASSIUM SERUM 3.9 MEQ/L (3.5-5.1); TOTAL PROTEIN 5.1 GM/DL (6.4-8.2)
--- NOTE | 2017-01-18 05:12 | PHACANCOPD ---
PHARMACY VANCOMYCIN DOSING Pt Demographics Demographics Patient Age:71 , Weight:136.980 , Gender: female Adjusted Body Weight Date: 01/18/17, Adjusted Body Weight: [87.6] Kg Vancomycin Vancomycin indication: SEPSIS Vancomycin Target Ranges: 10-20 mcg/ml Vancomycin Load Y/N: No Load Dose Date Time Vancomycin Load Dose: Date: Time: Vancomycin Dose Date: 01/18/17. Current Vancomycin Dose: [1 GM Q24H] Intermittent Dosing?: No Labs Labs Laboratory Tests 01/17/17 12:39 Red Blood Count 4.98, Mean Corpuscular Volume 92.2, Mean Corpuscular Hemoglobin 26.3 L, Mean Corpuscular Hemoglobin Concent 28.6 L, Red Cell Distribution Width 17.0 H, Neutrophils (%) (Auto) , Lymphocytes (%) (Auto) , Monocytes (%) (Auto) , Eosinophils (%) (Auto) , Basophils (%) (Auto) , Neutrophils # (Auto) , Lymphocytes # (Auto) , Monocytes # (Auto) , Eosinophils # (Auto) , Basophils # ( Auto) 01/17/17 17:02 Calcium Level 9.3 01/17/17 20:22 Calcium Level 7.2 #L, Total Creatine Kinase 221 H 01/18/17 03:55 Red Blood Count 4.64, Mean Corpuscular Volume 86.5 #, Mean Corpuscular Hemoglobin 26.1 L, Mean Corpuscular Hemoglobin Concent 30.2 L, Red Cell Distribution Width 17.6 H, Calcium Level 8.6 #L, Total Creatine Kinase 189, Phosphorus Level 2.1 L, Aspartate Amino Transf (AST/SGOT) 64 H, Alanine Aminotransferase (ALT/SGPT) 43, Lactate Dehydrogenase 413 H, Alkaline Phosphatase 112, Total Bilirubin 0.7 #, Triglycerides Level 148, Cholesterol Level 66, Total Protein 5.1 #L, Albumin 2.2 #L Micro Microbiology 01/18/17 Blood Culture, Received Pending 01/17/17 Blood Culture, Received Pending 01/17/17 Blood Culture, Received Pending 01/17/17 Respiratory Virus Panel (PCR) ([facility]) - Final, Complete 01/17/17 Urine Culture, Received Pending Creatinine Clearance Date:01/18/17. Creatinine Clearance: [27.7]CALCULATED. Assessment and Plan Maintaining Current Dose?: Yes Reason for dose change: No Dose Change Pharmacist Note Pharmacist Note Date: 01/18/17. Pharmacist note:VANCOMYCIN PER SEPSIS PROTOCOL: 1 GRAM ADMINISTERED @01/18 0130,FOLLOWED W/1 GM Q24H@: MEROPENEM 500MG IV Q12H: WILL CONTINUE TO MONITOR SCR AND LEVELS [facility] Jan 18, 2017 05:11
[2017-01-18 05:15] LABS: ANISOCYTOSIS 1+
[2017-01-18 05:16] LABS: HYPOCHROMASIA 1+
[2017-01-18] MEDS: INSULIN IV RATE CHANGE DOCUMENTATION ML/HR XX SCH ×7 (06:36→18:06)
[2017-01-18] MEDS ORDERED: HumaLOG INSULIN (NovoLOG) PER UNIT SC SCH (07:30)
--- NOTE | 2017-01-18 07:49 | REP ---
Clinical: Central line placement. Comparison: 01/17/2017. Findings: Left IJ line with tip in the brachiocephalic vein. Cardiomegaly and findings to suggest pulmonary vascular congestion with interstitial edema again noted. No obvious focal consolidation, effusion, or pneumothorax. Skeletal structures stable. Impression: Left IJ line with tip in the brachiocephalic vein. No pneumothorax. Cardiomegaly and pulmonary vascular congestion/interstitial edema. Signed by Felipe Diop MD 01/18/2017 07:40 A
[2017-01-18] MEDS ORDERED: cefTRIAXone SOD 1 GM in D5W MINI-BAG PLUS 50 ML IV SCH (09:00)
[2017-01-18] MEDS ORDERED: PANTOPRAZOLE 40MG TAB (PROTONIX) PO SCH (09:00)
[2017-01-18] MEDS ORDERED: PRAVASTATIN 20 MG TAB PO SCH (09:00)
[2017-01-18] MEDS ORDERED: K-PHOS ORIGINAL (POT.ACID PHOSPHATE) 500MG TAB PO SCH (09:00)
[2017-01-18] MEDS ORDERED: ESCITALOPRAM OXALATE 10 MG TAB (LEXAPRO) PO SCH (09:00)
--- NOTE | 2017-01-18 09:02 | IPNPDOC ---
Subjective Date Seen The patient was seen on 01/18/17. Subjective Chief Complaint/HPI The patient is a 71-year-old female admitted with a reason for visit of Sepsis. Events since last encounter Pt sleepy and lethargic, but able to answer my questions. Denies pain. Still with some SOB but she states a little better. Pulmonary: Reports: Dyspnea Cardiovascular: Denies: Chest Pain Gastrointestinal: Denies: Abdominal Pain, Nausea, Vomiting Objective Physical Examination General Exam: Positive: Alert, No Acute Distress Eye Exam: Positive: PERRLA ENT Exam: Positive: Atraumatic Neck Exam: Positive: Supple, Negative: JVD Chest Exam: Positive: Diminished, Negative: Rales, Rhonchi, Wheezing Heart Exam: Positive: Regular Rhythm, Tachycardic Abdomen Exam: Positive: Normal bowel sounds, Soft, Negative: Tenderness Skin Exam: Positive: Lesion (lesions on abdomen, apparently recently evaluated and treated by Dr. Cook) Assessment /Plan Problems (1) Sepsis Status: Acute Discussed With: Family with Pt Consent Problem Specific Plan: Consult Specialist, Monitor Clinically, Repeat Labs, Repeat Tests Problem Text: On meropenem and vanco. Fluid resuscitation and norepinephrine for pressure support. CVP monitored by database modeler. (2) Diabetes type 2, uncontrolled Status: Chronic Problem Specific Plan: Monitor Clinically, Repeat Labs Problem Text: on insulin drip (3) HTN (hypertension) Status: Chronic Problem Specific Plan: Monitor Clinically (4) Atrial fibrillation Status: Chronic Problem Specific Plan: Consult Specialist, Monitor Clinically Problem Text: Beta constance held due to sepsis and shock. Heart rate faster than desired at present but rate control med can only be added when pressure is adequate. Rate control not optimal but pressure maintenance takes priority. Cardiology was consulted. (5) UTI (urinary tract infection) Status: Acute Problem Specific Plan: Monitor Clinically, Repeat Labs Problem Text: On meropenem and vanco. Meropenem dose adjusted for acute renal failure; pharmacy consult for vanco dose adjust. (6) Renal failure (ARF), acute on chronic Status: Acute Problem Specific Plan: Monitor Clinically, Repeat Labs Problem Text: Expect renal function to improve with remediation of sepsis state. nephrology consult is option. Plan/VTE VTE Prophylaxis Ordered?: No (Eliquis currently held) VTE Exclusion Pharmacological: Other (INR elevated. patient was on Eliquis but held for now due to acute sepsis syndrome ) Plan/Urinary Catheter Urinary Catheter: Place Kaufman Reason for insertion/continuin: Critical Pt monitoring Plan Attending attestation: I saw and evaluated the patient, and I agree with the plan of care as discussed and documented by Kole Carrillo. Still requiring pressors. Cont to have Afib with RVR. Pt given an additional bolus of diltiazem and started on scheduled Q4 dosing. Intensive care consulting. Micky Shirley MD VS, I&O, 24H, Fishbone Vital Signs/I&O Vital Signs Date Time Temp Pulse Resp B/P Pulse Ox O2 Delivery O2 Flow Rate FiO2 01/18/17 06:00 135 83/56 96 01/18/17 04:30 Nasal Cannula 2.0 01/18/17 04:00 98.9 22 I&O- Last 24 Hours up to 6 AM 01/18/17 06:00 Intake Total 3458 ml Output Total 570 ml Balance 2888 ml Laboratory Data 24H LABS Laboratory Tests 2 01/17/17 12:39: Aspartate Amino Transf (AST/SGOT) 53H, Alanine Aminotransferase (ALT/SGPT) 31, Alkaline Phosphatase 149H, Total Bilirubin 2.4H, Direct Bilirubin 1.2H, Albumin 2.9L, Albumin/Globulin Ratio 0.71L, Amylase Level 13L, Anion Gap 20H, Anisocytosis 1+, Band Neutrophils 4, White Blood Count 25.6H, Red Blood Count 4.98, Hemoglobin 13.1, Hematocrit 45.9, Mean Corpuscular Volume 92.2, Mean Corpuscular Hemoglobin 26.3L, Mean Corpuscular Hemoglobin Concent 28.6L, Red Cell Distribution Width 17.0H, Platelet Count 223, Neutrophils (%) (Auto) , Lymphocytes (%) (Auto) , Monocytes (%) (Auto) , Eosinophils (%) (Auto) , Basophils (%) (Auto) , Neutrophils # (Auto) , Lymphocytes # (Auto) , Monocytes # (Auto) , Eosinophils # (Auto) , Basophils # (Auto) , Calcium Level 10.1, Creatine Kinase MB 3.9H, Creatine Kinase MB Relative Index 1.96, Glomerular Filtration Rate 15.7L, Hypochromasia 2+, Lactic Acid (Sepsis) 7.8*H, Large Unclassified Cells # , Large Unclassified Cells % , Lipase 32L, Lymphocytes ( Manual) 4L, Magnesium Level 1.5L, Metamyelocytes 1H, Monocytes (Manual) 3, Neutrophils 88H, Osmolality 332H, Platelet Estimate NORMAL, Prothromb Time International Ratio 2.71, Prothrombin Time 28.8H, Total Creatine Kinase 198H, Total Protein 7.0, Troponin I 0.19H 01/17/17 14:30: Arterial Blood pH 7.292L, Arterial Blood Partial Pressure CO2 24.2L, Arterial Blood Partial Pressure O2 93.1, Arterial Blood Total CO2 12.2L, Arterial Blood HCO3 11.4L, Arterial Blood Base Excess -13.3L, Arterial Blood Oxygen Saturation 96.4, Blood Gas Bicarbonate Standard 14.2L, Oxygen Delivery Device NASAL ARTI 01/17/17 14:55: Urine Amorphous Sediment , Urine Appearance TURBIDH, Urine Color YELLOW, Urine pH 5.0, Urine Specific [place] 1.013, Urine Protein 3+H, Urine Glucose (UA) 3+H , Urine Ketones TRACEH, Urine Urobilinogen 0.2, Urine Bilirubin NEGATIVE, Urine Leukocyte Esterase 3+H, Urine Bacteria (Auto) 3+H, Urine Blood 2+H, Urine Calcium Carbonate Cryst(Auto) , Urine Calcium Oxalate Cryst (Auto) , Urine Calcium Phosphate Gabrielle (Auto) , Urine Cellular Casts , Urine Cystine Crystals , Urine Granular Casts (Auto) , Urine Hyaline Casts (Auto) 0, Urine Leucine Crystals , Urine Mucus (Auto) SMALL, Urine Nitrite NEGATIVE, Urine Oval Fat Bodies (Auto) , Urine RBC (Auto) 32H, Urine Renal Epithelial Cells , Urine Sperm (Auto) , Urine Squamous Epithelial Cells 4, Urine Transitional Epithelial Cells , Urine Trichomonas (Auto) , Urine Triple Phosphate Cryst (Auto) , Urine Tyrosine Crystals , Urine Uric Acid Crystals (Auto) , Urine WBC (Auto) TNTCH, Urine Waxy Casts (Auto) , Urine Yeast-Like Cells (Auto) 01/17/17 17:02: Anion Gap 15, Calcium Level 9.3, Glomerular Filtration Rate 16.6L, Lactic Acid ( Sepsis) 4.4*H, Blood Urea Nitrogen 43H, Creatinine 2.95H, Sodium Level 134L, Potassium Level 4.3, Chloride Level 102, Carbon Dioxide Level 17L 01/17/17 18:26: Bedside Glucose (Misc Panel) 596*H 01/17/17 20:22: Anion Gap 12, Blood Urea Nitrogen 36H, Creatinine 2.25H, Sodium Level 141#, Potassium Level 3.2#L, Chloride Level 111H, Carbon Dioxide Level 18L, Calcium Level 7.2#L, Total Creatine Kinase 221H, Creatine Kinase MB 9.1H, Creatine Kinase MB Relative Index 4.11H, Glomerular Filtration Rate 22.7L, Troponin I 3.65#*H 01/17/17 20:37: Bedside Glucose (Misc Panel) 598*H 01/17/17 21:32: Lactic Acid (Sepsis) 4.9*H 01/17/17 22:05: Bedside Glucose (Misc Panel) 517*H 01/17/17 23:24: Bedside Glucose (Misc Panel) 464H 01/18/17 01:20: D-Dimer, Quantitative 1005.4H, Fibrinogen 618H, Lactic Acid (Sepsis) 3.9*H 01/18/17 01:29: Bedside Glucose (Misc Panel) 342H 01/18/17 02:41: Bedside Glucose (Misc Panel) 297H 01/18/17 03:55: Blood Urea Nitrogen 46H, Creatinine 2.52H, Sodium Level 142, Potassium Level 3.9 #, Chloride Level 110H, Carbon Dioxide Level 19L, Calcium Level 8.6#L, Phosphorus Level 2.1L, Aspartate Amino Transf (AST/SGOT) 64H, Alanine Aminotransferase (ALT/SGPT) 43, Lactate Dehydrogenase 413H, Total Creatine Kinase 189, Alkaline Phosphatase 112, Total Bilirubin 0.7#, Triglycerides Level 148, Cholesterol Level 66, Total Protein 5.1#L, Albumin 2.2#L, Albumin/Globulin Ratio 0.76L, Anion Gap 13, Anisocytosis 1+, Creatine Kinase MB 5.6H, Creatine Kinase MB Relative Index 2.96, Glomerular Filtration Rate 19.9L, Hypochromasia 1 +, Lymphocytes (Manual) 4L, Magnesium Level 1.7L, Neutrophils 96H, Platelet Estimate NORMAL, Troponin I 2.53#*H 01/18/17 04:04: Bedside Glucose (Misc Panel) 225H 01/18/17 05:09: Bedside Glucose (Misc Panel) 156H 01/18/17 06:14: Bedside Glucose (Misc Panel) 130H 01/18/17 07:02: Bedside Glucose (Misc Panel) 121H CBC/BMP Laboratory Tests 01/17/17 12:39 Red Blood Count 4.98, Mean Corpuscular Volume 92.2, Mean Corpuscular Hemoglobin 26.3 L, Mean Corpuscular Hemoglobin Concent 28.6 L, Red Cell Distribution Width 17.0 H, Neutrophils (%) (Auto) , Lymphocytes (%) (Auto) , Monocytes (%) (Auto) , Eosinophils (%) (Auto) , Basophils (%) (Auto) , Neutrophils # (Auto) , Lymphocytes # (Auto) , Monocytes # (Auto) , Eosinophils # (Auto) , Basophils # ( Auto) 01/17/17 17:02 Calcium Level 9.3 01/17/17 20:22 Calcium Level 7.2 #L, Total Creatine Kinase 221 H 01/18/17 03:55 Red Blood Count 4.64, Mean Corpuscular Volume 86.5 #, Mean Corpuscular Hemoglobin 26.1 L, Mean Corpuscular Hemoglobin Concent 30.2 L, Red Cell Distribution Width 17.6 H, Calcium Level 8.6 #L, Total Creatine Kinase 189, Phosphorus Level 2.1 L, Aspartate Amino Transf (AST/SGOT) 64 H, Alanine Aminotransferase (ALT/SGPT) 43, Lactate Dehydrogenase 413 H, Alkaline Phosphatase 112, Total Bilirubin 0.7 #, Triglycerides Level 148, Cholesterol Level 66, Total Protein 5.1 #L, Albumin 2.2 #L Microbiology Microbiology 01/18/17 Blood Culture, Received Pending 01/17/17 Blood Culture - Preliminary, Resulted 01/17/17 Blood Culture - Preliminary, Resulted 01/17/17 Respiratory Virus Panel (PCR) ([facility]) - Final, Complete 01/17/17 Urine Culture, Received Pending Lauro Carrillo RPA-C Jan 18, 2017 09:02 MICKY SHIRLEY MD Jan 22, 2017 10:55
--- NOTE | 2017-01-18 09:55 | ECGEPIP ---
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
[2017-01-18 10:37] LABS: CREATININE FOR GFR 2.27 MG/DL (0.55-1.02); GLOMERULAR FILTRATION RATE 22.5 (>39); PHOSPHORUS LEVEL 1.8 MG/DL (2.5-4.9)
[2017-01-18] MEDS ORDERED: MAG SULF 1GM/100ML (MAG RUN) 1 GM in APPROPRIATE DILUENT 1 EA IV ONE (12:00)
[2017-01-18] MEDS ORDERED: LORazepam 2 MG/ML VIAL (J2060) As Ordered ONE (12:04)
[2017-01-18 12:58] LABS: ABG BASE EXCESS -10.9 (-2.0-2.0); ABG HCO3 11.9 MEQ/L (22.0-26.0); ABG PARTIAL PRESSURE CO2 20.4 mmHg (35.0-45.0); ABG PARTIAL PRESSURE O2 135.2 mmHg (75.0-100.0); ABG STANDARD HCO3 15.9 MEQ/L (22.0-26.0); ABG TOTAL CO2 12.5 MEQ/L (23.0-31.0); ABG pH (ARTERIAL) 7.384 UNITS (7.350-7.450)
--- NOTE | 2017-01-18 13:18 | CCN ---
DATE: 01/18/2017 NOTE: I was asked by Dr. Khan to emergently evaluate on Karen Painter for severe sepsis with shock. Ms. Painter is a 71-year-old white female with past medical history significant for insulin requiring diabetes mellitus, diastolic heart failure, hypertension, chronic kidney disease, chronic obstructive pulmonary disease (COPD) per chart, and extreme obesity. Apparently she fell in her home around 6:30 in the morning, was unable to get up and was lying on the floor until her case work aide came and activated EMS. She believes that she fell because she was weak and then was unable to get up. She did become incontinent of urine and stool. In the emergency room apparently she complained of abdominal pain but denied chest pain or shortness of breath. She was found to be hyperglycemic with glucose of 587 as well as being hypotensive with a blood pressure of 75/43. Her lactic acid was 7.8 and he had a leukocytosis of 25.6. She was given initially 250 mL fluid bolus and started on fluids at a rate of 100 mL/hr for a total of 1 liter. In reviewing the order history, it appears that somewhere around 9 o'clock tonight she became hypotensive and received another 250 mL bolus and then a 500 mL bolus. She was then started on phenylephrine and I was contacted. I was then contacted by the intensive care unit who stated her systolic blood pressure was 40. Upon arrival, Dr. Nicholas was just beginning to place a central line and blood pressure was being maintained with a map greater than 65 with Matheus-Synephrine. Her initial CVP was 14. Stat echocardiogram was done when I was present and I have spoken to Dr. Kendrick who notes that it is not significantly changed from that one in November with the exception that she is more tachycardic. He made a notation that she has a small left ventricle, large left atrium and right atrium. Despite all that is going on, she is awake and alert. She denied shortness of breath or chest pain. No abdominal pain. No nausea or vomiting. Again she had been incontinent of stool and urine when she was lying waiting for help. No other complaints offered. ALLERGIES: CEPHALEXIN. HOME MEDICATIONS: - acetaminophen 650 mg by mouth every 4 hours as needed - Eliquis 5 mg by mouth twice daily - bisoprolol 5 mg by mouth twice daily - Lexapro 10 mg by mouth daily - Nexium 40 mg by mouth daily - insulin Lispro 80 units - magnesium oxide 400 mg by mouth twice daily - Nitrostat 0.4 mg sublingual by mouth as needed pain - Pravachol 20 mg by mouth daily - Prolia 60 mg subcutaneous as directed - Ramipril 10 mg by mouth daily - ferrous sulfate 325 mg by mouth daily - NovoLog 70/30 units subcutaneous before meals - Levaquin 500 mg by mouth daily - Nystatin powder topical twice daily - Anat-Bid probiotic one by mouth twice daily - vitamin D 50,000 units by mouth weekly OBJECTIVE: PHYSICAL EXAMINATION: General: Ms. Painter is lying in bed in no acute distress. She is alert and conversive. Vital signs: Blood pressure 102/58 with a map of 75, pulse 117, temperature 97.6, respiratory rate 20s, Sp02 98% on 2 liters. HEENT: Anicteric. Nares: Patent bilaterally. Moist mucosa, oropharynx, moist mucosa. Neck: Supple without jugular venous distention (JVD), without thyromegaly, masses, trachea is midline. Lymph: No cervical or supraclavicular lymphadenopathy. Lungs: Symmetric excursion, good air entry. No wheeze, rhonchi or crackle on tidal excursion. Normal I;E. No accessory muscle usage or retractions. Cardiovascular: Tachycardic, irregular, no murmur, rub or gallop appreciated. Abdomen: Difficult exam secondary to body habitus. Positive bowel sounds, soft, nondistended, nontender. Extremities: Cool, without clubbing, cyanosis or significant edema. Barely palpable pedal pulses, she has chronic nail changes. Skin: There are multiple bandages on her abdomen from wounds and one shallow ulcer (she is followed by Dr. Cook). LABORATORY DATA: CBC showed hemoglobin of 13.1, hematocrit 45.9, platelet count 223,000. White blood cell count 25,600 with a differential of 88% neutrophils, 4% bands, 4% lymphocytes, 3% monocytes and 1% metamyelocytes. Chemistries: Initial chemistry showed a sodium of 130, potassium 5.3, chloride 98, bicarbonate 12, anion gap 20, BUN 39, creatinine 3.09, glucose 710, lactic acid 7.8, calcium 10.1, magnesium 1.5, total bilirubin 2.4, direct bilirubin 1.2, AST 53, ALT 31. Alkaline phosphatase 149, CK 198, CK-MB 3.9, troponin I 0.19, total protein 7.9, albumin 2.9, amylase 13, lipase 32. Her most recent electrolytes from 2021 showed a sodium 141, potassium 3.2, chloride 11, bicarbonate 18, anion gap 12, BUN 36, creatinine 2.25, glucose 453, lactic acid 4.9, calcium 7.2, CK 221, CK- MB 9.1, troponin I 3.65. Arterial blood gas was 7.29 with a measured saturation 96.4% and base excess of -13.3. INR was 2.71, fibrinogen 618 and D-dimer 1005. Urinalysis was turbid with a pH of 5, specific gravity of 1.013, 3+ protein, 3+ glucose, 2+ blood, too numerous to count WBCs, 32 RBCs, 3+ bacteria. I reviewed her chest x-ray as well as the report from earlier today. That x-ray showed an enlarged cardiac silhouette with possibly mildly enlarged pulmonary vascular shadows. Normal appearing mediastinum. No acute infiltrates. Normal inflation. IMPRESSION: 1. Severe sepsis with shock likely secondary to a urinary tract infection (UTI) . 2. Acute renal failure. 3. Hyperglycemia. 4. Abnormal urinalysis, urine culture pending. 5. Pulmonary hypertension, moderately severe. 6. History of diastolic congestive heart failure (CHF). 7. Atrial fibrillation. 8. History of chronic obstructive pulmonary disease (COPD) per chart, do not know spirometric values. 9. Elevated INR likely coagulopathy related to sepsis. 10. Infectious disease (ID) currently on imipenem and vancomycin. 11. Stress ulcer prophylaxis in place with Protonix. 12. Deep venous thrombosis (DVT) prophylaxis, currently INR is 2.0. However, she will very shortly need to be started on a medication. Will add sequential compression devices (SCD) and thromboembolic deterrent stockings (TEDS). RECOMMENDATIONS: 1. Would follow sepsis bundle. 2. It is difficult to know what her best CVP is. She has pulmonary hypertension and may actually do better with a CVP higher than 14. I would not let the CVP go below 10. 3. Agree with Levophed for blood pressure management. 4. If another agent is needed for hypotension, it should be either epinephrine or vasopressin. Given her tachycardia, I would likely start the latter. 5. Given that she is hyperchloremia already, I would use lactated ringer (LR) as resuscitative agent. 6. Agree with antibiotic choices. They can be weaned after culture is available. 7. Will keep following lactates per protocol. 8. She is currently on an insulin drip per protocol. PROGNOSIS: Guarded. CRITICAL CARE TIME: 130 minutes. SHANNAN
--- NOTE | 2017-01-18 13:58 | CCN ---
DATE: 01/18/2017 NOTE: Ms. Painter remains critically ill with severe sepsis with shock. She is being fluid resuscitated. She appears to need a CVP in the 14-15 range. She is currently on Levophed at 10 mcg. Blood cultures have been positive in two vials for gram negative rods. Her lactate has normalized and her kidney function continues to improve. Troponin I has continued to decrease. She has become somewhat more agitated over the last half an hour to an hour. OBJECTIVE: PHYSICAL EXAMINATION: General: Ms. Painter is lying in bed in no acute distress. She appears to have sleep apneic type respirations when she is sleeping. Vital signs: Pulse 142, blood pressure 125/87 with a map 98, respiratory rate 20s, SpO2 100% on 2 liters by nasal cannula, temperature 97.9. HEENT: Anicteric. Pupils equal, round, reactive to light and accommodation. Nares: Patent bilaterally. Moist mucosa. Oral pharynx: Clear, moist mucosa. Mallampati 4. Recessed chin, edentulous. Neck: Supple, without apparent jugular venous distention (JVD) though difficult to exam secondary to the body habitus. Lungs: Symmetric excursion. Good air entry. No wheeze, rhonchi or crackle on tidal excursion. Normal I;E. No accessory muscle usage or retractions. Cardiovascular: Irregularly irregular, tachycardic, normal S1, S2. No murmur, rub or gallop appreciated. Abdomen: Positive bowel sounds, soft, nondistended. Extremities: Warm and well perfused. Palpable pedal pulses, sequential compression devices (SCD) and thromboembolic deterrent stockings (TEDS) in place. Most recent CBC shows a hemoglobin of 12.1, hematocrit 40.2, platelet count 232,000. White blood cell count 29,000 with a differential of 96% neutrophils and 4% lymphocytes. Chemistry shows sodium 143, potassium 4.0, chloride 112, bicarbonate 20, anion gap 11, BUN 46, creatinine 2.27, glucose 71, lactic acid 2.0, calcium 9.0, phosphorus 1.8, magnesium 1.7. IMPRESSION: 1. Severe sepsis with shock. Source most likely urinary tract though she does have some skin breakdown around her rectum and she did sit in stool prior to being found on the floor. Lactate has now normalized. 2. Hyperglycemia, on an insulin drip. 3. Acute renal failure, creatinine slowly improving. She is making urine. 4. Elevated troponins, likely stress related. 5. Pulmonary hypertension, moderately severe. 6. Multiple skin lesions with superficial ulcers, followed by Dr. Cook. 7. Infectious disease (ID) on meropenem and vancomycin. Hopefully we will be able to narrow the antibiotics as blood culture results become available. 8. Atrial fibrillation. Cardiology is following. 9. Deep venous thrombosis (DVT) prophylaxis, sequential compression devices (SCD) and thromboembolic deterrent stockings (TEDS). Her INR was greater than 2 yesterday. Will repeat it with the next blood draw. 10. Stress ulcer prophylaxis in place with proton pump inhibitor. 11. Nutrition: Currently n.p.o. RECOMMENDATIONS: 1. Will continue current antibiotics but again narrow it as results become available. 2. Will continue Levophed and as needed lactated ringer (LR) boluses. She appears to do best with a CVP in the 14-15 range. 3. Given her agitation and the appearance of probable obstructive sleep apnea, we will obtain an ABG. 4. Appreciate cardiology's input in regards to atrial fibrillation with rapid ventricular response. 5. Continue vasopressors with a MAP goal of greater than 65. 6. Will need to clarify her code status. She previously had signed a Medical orders for life sustaining treatment (MOLST) form in September 2016 which indicated DO NOT RESUSCITATE, DO NOT INTUBATE. I have asked the primary team to clarify status. 7. If she survives this illness, will need to have director social involved as it is not clear that she is safe to return home under her current circumstances. ADDITIONAL CRITICAL CARE TIME: 40 minutes, not including procedure time. SHANNAN
[2017-01-18] MEDS ORDERED: POTASSIUM PHOSPHATE INJ 20 MMOL in D5W 250 ML IV ONE (14:00)
--- NOTE | 2017-01-18 14:04 | ECGEPIP ---
Stationary ECG Study [facility] Test Date: 2017-01-18 Pat Name: EDDIE WIGGINS Department: Room: I1015-18 Gender: F Manager Of Business: SAMIRA : 1945 Requested By: MICKY Jones Order Number: [id number] Reading MD: Perez Wiggins Measurements Intervals Morton Rate: 152 P: TN: 0 QRS: 138 QRSD: 131 T: -19 QT: 298 QTc: 474 Interpretive Statements ATRIAL FIBRILLATION WITH RAPID VENTRICULAR RESPONSE MARKED RIGHT AXIS DEVIATION RIGHT BUNDLE BRANCH BLOCK POSSIBLE ANTERIOR MYOCARDIAL INFARCTION, OF INDETERMINATE AGE Low precordial voltages. Leftward axis. Increased heart rate compared with 01/17/2017. Electronically Signed On 01-18-2017 14:04:13 EST by Perez Wiggins
[2017-01-18 15:11] LABS: CALCIUM LEVEL 8.4 MG/DL (8.8-10.2); CREATININE FOR GFR 2.26 MG/DL (0.55-1.02); GLOMERULAR FILTRATION RATE 22.6 (>39)
--- NOTE | 2017-01-18 15:18 | ECHO ---
DATE OF STUDY: 01/18/2017 REFERRING PHYSICIAN: Dr. Teresa Soto INDICATION: Hypotension. HEIGHT: 64 inches. WEIGHT: 300 pounds. MEASUREMENTS: Aortic root: 3.2 cm Proximal ascending aorta: 3.4 cm Left atrium: 5.4 cm Ventricular septum: 1.59 cm Posterior wall: 1.42 cm Left ventricle diastole: 4.7 cm Inferior vena cava: 2.7 cm with marked reduction of respiratory variation. DOPPLER MEASUREMENTS: Aortic valve velocity: 368 cm/s Aortic valve VTI: 59.9 cm Peak aortic valve gradient: 54 mmHg Mean aortic valve gradient: 34 mmHg LVOT velocity: 120 cm/s LVOT VTI: 18.9 cm No mitral regurgitation. Mild tricuspid regurgitation. Estimated right ventricle systolic pressure: At least 62 mmHg assuming a right pressure of at least 20 mmHg. Very mild pulmonic regurgitation. DESCRIPTION: Rhythm was atrial fibrillation with right bundle branch block and rapid ventricular response. This was a moderately technically difficult echocardiogram. CONCLUSIONS: 1. Mild-moderate concentric left ventricle hypertrophy. Normal left ventricular (LV) wall motion and wall thickening. Normal LV systolic function. Left ventricular ejection fraction (LVEF) 60% by visual estimate. Unable to assess LV diastolic function in the setting of atrial fibrillation with rapid ventricular response. 2. Suggestive of severe elevation of estimated right ventricle sytolic pressure (at least 62 mmHg). Normal right ventricle size and systolic function. Severe right atrial dilatation by visual assessment. Mild tricuspid regurgitation. 3. Inferior vena cava plethora. Suggestive of elevated central venous pressure of at least 20 mmHg. 4. Degenerative, calcific aortic valve disease of a three-cusp aortic valve with severe focal thickening and calcific deposits. Moderate aortic stenosis. No aortic regurgitation. 5. Severe left atrial dilatation. 6. Moderate mitral annular calcification. No mitral regurgitation. No mitral stenosis. 7. No pericardial effusion. 8. Moderately technically difficult echocardiogram.
--- NOTE | 2017-01-18 18:07 | RO ---
DATE OF PROCEDURE: 01/18/2017 PREOPERATIVE DIAGNOSES: Severe sepsis with hypotension, need for central vascular access for critical care medications. POSTOPERATIVE DIAGNOSES: Severe sepsis with hypotension, need for central vascular access for critical care medications. PROCEDURE: Insertion of left internal jugular triple-lumen catheter under ultrasound guidance. Attempt at left subclavian vein access. SURGEON: Dr. Portillo Nicholas CAR PRE COOLER: ANESTHESIA: Local anesthesia ESTIMATED BLOOD LOSS: Less than 10 mL. COMPLICATIONS: None. Postprocedure chest x-ray was reviewed. No pneumothorax noted. DESCRIPTION OF PROCEDURE: Procedure note: I was called in to insert a central venous catheter on Ms. Painter, who was admitted for severe sepsis. She remains hypotensive and would require central venous access for administration of Levophed. Consent was verbally obtained from the patient to the primary care. The hospitalist team has contacted family, also, to tell them of the need for the procedure. She was in the critical care room. Monitoring leads were already placed. She has been getting oxygen via high-flow nasal cannula. We used the line insertion bundle for the procedure. Her left neck and chest were prepped and draped in the usual sterile fashion using chlorhexidine. With the patient on a Trendelenburg position, her head tilted away from the left side, I attempted a left subclavian intraclavicular access with the 18-gauge finder needle in the set. I was able to access the subclavian vein but was not able to thread the wire, most likely because this is hitting the clavicle at an acute angle. After three tries, I then switched to the internal jugular vein. I used the ultrasound to find the internal jugular vein. This area was infiltrated with local anesthesia. The finder needle was able to locate the internal jugular vein and thread the guidewire through the needle using modified Seldinger technique. Exchanged this for a triple-lumen catheter. Placed this at about 17 cm level from the skin incision site. The tract was enlarged with the dilator prior to inserting the triple-lumen catheter. All ports were aspirated and flushed and noted to be working well. This was then secured to the skin. An antibiotic dressing then placed secured to the skin. The patient tolerated the procedure well. Postoperative chest x-ray was done and was reviewed by me. No pneumothorax noted.
[2017-01-18 19:11] LABS: CALCIUM LEVEL 8.2 MG/DL (8.8-10.2); CREATININE FOR GFR 2.33 MG/DL (0.55-1.02); GLOMERULAR FILTRATION RATE 21.8 (>39); POTASSIUM SERUM 4.4 MEQ/L (3.5-5.1)
[2017-01-18 20:20] LABS: ABG BASE EXCESS -9.1 (-2.0-2.0); ABG HCO3 13.5 MEQ/L (22.0-26.0); ABG PARTIAL PRESSURE CO2 21.8 mmHg (35.0-45.0); ABG PARTIAL PRESSURE O2 95.4 mmHg (75.0-100.0); ABG STANDARD HCO3 17.2 MEQ/L (22.0-26.0); ABG TOTAL CO2 14.2 MEQ/L (23.0-31.0); ABG pH (ARTERIAL) 7.411 UNITS (7.350-7.450)
[2017-01-18] MEDS: VANCOMYCIN HCL 1,000 MG, VIAL MATE ADAPTER 1 EACH in D5W 250 ML IV SCH (22:08)
[2017-01-18 23:18] LABS: CALCIUM LEVEL 8.5 MG/DL (8.8-10.2); CREATININE FOR GFR 2.3 MG/DL (0.55-1.02); GLOMERULAR FILTRATION RATE 22.1 (>39); POTASSIUM SERUM 3.9 MEQ/L (3.5-5.1)
[2017-01-19] VITALS (23 sets, daily range): BP systolic 74–184; BP diastolic 35–110
[2017-01-19] MEDS: PANTOPRAZOLE 40MG INJ (PROTONIX) (C9113) IV SCH (00:02)
[2017-01-19] MEDS: NOREPINEPHRINE BITARTRATE 8 MG in D5W 500 ML IV SCH ×3 (00:03→21:34)
[2017-01-19] MEDS: MEROPENEM INJ 500 MG in D5W MINI-BAG PLUS 100 ML IV SCH ×2 (00:03→12:11)
[2017-01-19] MEDS: INSULIN IV RATE CHANGE DOCUMENTATION ML/HR XX SCH ×6 (04:00→17:59)
[2017-01-19 06:22] LABS: ALBUMIN 1.9 GM/DL (3.2-5.2); ALBUMIN/GLOBULIN RATIO 0.58 (1.00-1.93); BILIRUBIN,TOTAL 1.3 MG/DL (0.2-1.0); CALCIUM LEVEL 8.4 MG/DL (8.8-10.2); CREATININE FOR GFR 2.15 MG/DL (0.55-1.02); GLOMERULAR FILTRATION RATE 23.9 (>39); MAGNESIUM LEVEL 1.8 MG/DL (1.8-2.4); MEAN CORPUSCULAR HEMOGLOBIN 26.5 pg (27.0-33.0); MEAN CORPUSCULAR HGB CONC 30.5 g/dl (32.0-36.5); MEAN CORPUSCULAR VOLUME 87.1 fl (80.0-96.0); PHOSPHORUS LEVEL 2.3 MG/DL (2.5-4.9); PLATELET COUNT, AUTOMATED 189 k/mm3 (150-450); RED CELL DISTRIBUTION WIDTH 17.4 % (11.5-14.5); TOTAL PROTEIN 5.2 GM/DL (6.4-8.2); WHITE BLOOD COUNT 18.7 K/mm3 (4.0-10.0)
[2017-01-19 07:19] LABS: ANISOCYTOSIS 1+
[2017-01-19 07:20] LABS: HYPOCHROMASIA 1+
--- NOTE | 2017-01-19 08:55 | IPNPDOC ---
Subjective Date Seen Pt confused this morning. She has been combative, restless at times. She has pulled her IVs, and is pulling at her central line. She has mitts on this morning. Her nurse is without new concerns. Her son visited briefly last night. He was overwhelmed with her condition. Subjective Chief Complaint/HPI The patient is a 71-year-old female admitted with a reason for visit of Sepsis. General: Reports: ROS Unobtainable Objective Physical Examination General Exam: Positive: Mild Distress (Tachypneic, opens eyes only briefly) ENT Exam: Positive: Mucous membr. moist/pink Neck Exam: Positive: Supple, Negative: JVD Chest Exam: Positive: Diminished (throughout, tachypneic), Negative: Rales, Rhonchi, Wheezing Heart Exam: Positive: Irregular Rhythm, Tachycardic Abdomen Exam: Positive: Normal bowel sounds, Soft, Negative: Tenderness Extremity Exam: Negative: Edema Skin Exam: Positive: Lesion (lesions on abdomen, apparently recently evaluated and treated by Dr. Cook) Assessment /Plan Problems (1) Sepsis Status: Acute Discussed With: Family with Pt Consent Problem Specific Plan: Consult Specialist, Monitor Clinically, Repeat Labs, Repeat Tests Problem Text: On meropenem and vanco. Fluid resuscitation and norepinephrine for pressure support. CVP monitored by deckhand crab boat. WBC trending down, spiked low grade temp this morning, UC + Kleb pn, susceptible to both Meropenam/Vanco. Blood cultures pending. (2) Diabetes type 2, uncontrolled Status: Chronic Problem Specific Plan: Monitor Clinically, Repeat Labs Problem Text: on insulin drip (3) Atrial fibrillation Status: Chronic Problem Specific Plan: Consult Specialist, Monitor Clinically Problem Text: Beta constance held due to sepsis and shock. Heart rate faster than desired at present but rate control med can only be added when pressure is adequate. Rate control not optimal but pressure maintenance takes priority. Cardiology was consulted. (4) UTI (urinary tract infection) Status: Acute Problem Specific Plan: Monitor Clinically, Repeat Labs Problem Text: On meropenem and vanco. Meropenem dose adjusted for acute renal failure; pharmacy consult for vanco dose adjust. (5) Renal failure (ARF), acute on chronic Status: Acute Problem Specific Plan: Monitor Clinically, Repeat Labs Problem Text: Expect renal function to improve with remediation of sepsis state. nephrology consult is option. Plan/VTE VTE Prophylaxis Ordered?: No (Samuel currently held) VTE Exclusion Pharmacological: Other (INR elevated. patient was on Eliquis but held for now due to acute sepsis syndrome ) Plan/Urinary Catheter Urinary Catheter: Place Kaufman Reason for insertion/continuin: Critical Pt monitoring Plan Anticipated Discharge: Care Home Disposition Pt has MOLST from 10/12. Apparently she rescinded this in the ER on admission. I spoke with her son Eric 01/19/17, who will meet with his brother and talk with him about what he thinks is best. He understands that his mom likely wasn' t of sound mind when she rescinded the DNR. VS, I&O, 24H, Fishbone Vital Signs/I&O Vital Signs Date Time Temp Pulse Resp B/P Pulse Ox O2 Delivery O2 Flow Rate FiO2 01/19/17 08:11 112 113/58 01/19/17 06:17 97 High Flow Cannula 2.0 01/19/17 05:01 26 01/19/17 04:02 100.3 I&O- Last 24 Hours up to 6 AM 01/19/17 06:00 Intake Total 3209.4 ml Output Total 1140 ml Balance 2069.4 ml Laboratory Data 24H LABS Laboratory Tests 2 01/18/17 08:50: Lactic Acid Level 2.0 01/18/17 09:38: Bedside Glucose (Misc Panel) 68L 01/18/17 09:49: Anion Gap 11, Blood Urea Nitrogen 46H, Creatinine 2.27H, Sodium Level 143, Potassium Level 4.0, Chloride Level 112H, Carbon Dioxide Level 20L, Calcium Level 9.0, Glomerular Filtration Rate 22.5L, Phosphorus Level 1.8L 01/18/17 10:15: Bedside Glucose (Misc Panel) 69L 01/18/17 10:59: Bedside Glucose (Misc Panel) 97 01/18/17 12:29: Bedside Glucose (Misc Panel) 146H 01/18/17 12:39: Creatine Kinase MB 2.8, Creatine Kinase MB Relative Index 2.50, Total Creatine Kinase 112, Troponin I 1.65#*H 01/18/17 12:42: Arterial Blood pH 7.384, Arterial Blood Partial Pressure CO2 20.4L, Arterial Blood Partial Pressure O2 135.2H, Arterial Blood Total CO2 12.5L, Arterial Blood HCO3 11.9L, Arterial Blood Base Excess -10.9L, Arterial Blood Oxygen Saturation 98.9, Blood Gas Bicarbonate Standard 15.9L 01/18/17 14:21: Bedside Glucose (Misc Panel) 135H 01/18/17 14:41: Anion Gap 12, Blood Urea Nitrogen 45H, Creatinine 2.26H, Sodium Level 143, Potassium Level 4.0, Chloride Level 114H, Carbon Dioxide Level 17L, Calcium Level 8.4L, Glomerular Filtration Rate 22.6L 01/18/17 16:02: Bedside Glucose (Misc Panel) 138H 01/18/17 18:00: Bedside Glucose (Misc Panel) 147H 01/18/17 18:28: Anion Gap 11, Blood Urea Nitrogen 45H, Creatinine 2.33H, Sodium Level 142, Potassium Level 4.4, Chloride Level 113H, Carbon Dioxide Level 18L, Calcium Level 8.2L, Glomerular Filtration Rate 21.8L 01/18/17 20:02: Arterial Blood pH 7.411, Arterial Blood Partial Pressure CO2 21.8L, Arterial Blood Partial Pressure O2 95.4, Arterial Blood Total CO2 14.2L, Arterial Blood HCO3 13.5L, Arterial Blood Base Excess -9.1L, Arterial Blood Oxygen Saturation 97.5, Arterial Blood Gas Puncture Site LT BRACHIAL, Blood Gas Bicarbonate Standard 17.2L 01/18/17 20:10: Bedside Glucose (Misc Panel) 126H 01/18/17 21:57: Bedside Glucose (Misc Panel) 110 01/18/17 22:49: Anion Gap 11, Blood Urea Nitrogen 44H, Creatinine 2.30H, Sodium Level 140, Potassium Level 3.9, Chloride Level 111H, Carbon Dioxide Level 18L, Calcium Level 8.5L, Glomerular Filtration Rate 22.1L 01/19/17 00:10: Bedside Glucose (Misc Panel) 120H 01/19/17 02:03: Bedside Glucose (Misc Panel) 106 01/19/17 02:58: Bedside Glucose (Misc Panel) 100 01/19/17 04:07: Bedside Glucose (Misc Panel) 89 01/19/17 05:02: Bedside Glucose (Misc Panel) 86 01/19/17 05:39: Blood Urea Nitrogen 44H, Creatinine 2.15H, Sodium Level 142, Potassium Level 4.0 , Chloride Level 112H, Carbon Dioxide Level 17L, Calcium Level 8.4L, Phosphorus Level 2.3#L, Aspartate Amino Transf (AST/SGOT) 102H, Alanine Aminotransferase ( ALT/SGPT) 55, Lactate Dehydrogenase 382H, Total Creatine Kinase 62, Alkaline Phosphatase 136H, Total Bilirubin 1.3#H, Triglycerides Level 141, Cholesterol Level 54, Total Protein 5.2L, Albumin 1.9L, Albumin/Globulin Ratio 0.58L, Anion Gap 13, Anisocytosis 1+, White Blood Count 18.7H, Red Blood Count 4.23, Hemoglobin 11.2L, Hematocrit 36.9, Mean Corpuscular Volume 87.1, Mean Corpuscular Hemoglobin 26.5L, Mean Corpuscular Hemoglobin Concent 30.5L, Red Cell Distribution Width 17.4H, Platelet Count 189, Neutrophils (%) (Auto) , Lymphocytes (%) (Auto) , Monocytes (%) (Auto) , Eosinophils (%) (Auto) , Basophils (%) (Auto) , Neutrophils # (Auto) , Lymphocytes # (Auto) , Monocytes # (Auto) , Eosinophils # (Auto) , Basophils # (Auto) , Glomerular Filtration Rate 23.9L, Hypochromasia 1+, Large Unclassified Cells # , Large Unclassified Cells % , Lymphocytes (Manual) 6L, Magnesium Level 1.8, Monocytes (Manual) 2, Neutrophils 92H, Platelet Estimate NORMAL 01/19/17 05:57: [facility] CBC/BMP Laboratory Tests 01/18/17 09:49 Calcium Level 9.0 01/18/17 14:41 Calcium Level 8.4 L 01/18/17 18:28 Calcium Level 8.2 L 01/18/17 22:49 Calcium Level 8.5 L 01/19/17 05:39 Calcium Level 8.4 L, Phosphorus Level 2.3 #L, Aspartate Amino Transf (AST/SGOT) 102 H, Alanine Aminotransferase (ALT/SGPT) 55, Lactate Dehydrogenase 382 H, Total Creatine Kinase 62, Alkaline Phosphatase 136 H, Total Bilirubin 1.3 #H, Triglycerides Level 141, Cholesterol Level 54, Total Protein 5.2 L, Albumin 1.9 L, Red Blood Count 4.23, Mean Corpuscular Volume 87.1, Mean Corpuscular Hemoglobin 26.5 L, Mean Corpuscular Hemoglobin Concent 30.5 L, Red Cell Distribution Width 17.4 H, Neutrophils (%) (Auto) , Lymphocytes (%) (Auto) , Monocytes (%) (Auto) , Eosinophils (%) (Auto) , Basophils (%) (Auto) , Neutrophils # (Auto) , Lymphocytes # (Auto) , Monocytes # (Auto) , Eosinophils # (Auto) , Basophils # (Auto) Microbiology Microbiology 01/19/17 Blood Culture, Received Pending 01/18/17 Blood Culture - Preliminary, Resulted No growth after 24 hours . All specim... 01/17/17 Blood Culture - Preliminary, Resulted 01/17/17 Blood Culture - Preliminary, Resulted 01/17/17 Respiratory Virus Panel (PCR) (TEMITOPE) - Final, Complete 01/17/17 Urine Culture - Final, Complete Klebsiella Pneumoniae MICHA MITTAL PA-C Jan 19, 2017 08:55
[2017-01-19] MEDS: NS 1,000 ML IV SCH ×2 (09:26→20:28)
[2017-01-19] MEDS: INSULIN HUMAN REGULAR 100 UNITS in NS 99 ML IV SCH (10:40)
--- NOTE | 2017-01-19 11:24 | CCN ---
DATE: 01/19/2017 Ms. Painter remains critically ill with secondary to severe sepsis and shock. She is still requiring Levophed at 10 mcg. Additionally she has had episodes of atrial fibrillation with rapid ventricular response. When that occurs, her blood pressure significantly drops. When her rate is slowed down, typically by Cardizem, her needs for vasopressors decrease. She continues to be tachypneic secondary to her metabolic acidosis which is requiring her to have a respiratory rate to achieve a Pc02 in low 20s. She is arousable but does not follow any commands. She remains with acute renal failure. Additionally, she remains with hyperglycemia and is on a insulin drip. OBJECTIVE: PHYSICAL EXAMINATION: General: Ms. Painter is lying in bed appearing in mild distress and ill appearing. She is moaning at times. Vital signs: Temperature 98.8, t-max 100.3, blood pressure 113/15 on Levophed 10 mcg, heart rate 112, respiratory rate 24, SpO2 97% on 2 liters. HEENT: Anicteric. Pupils equal, round, reactive to light and accommodation. Nares: Patent bilaterally. [place] mucosa. Oral pharynx clear. Moist mucosa. Neck: Supple, without appreciable jugular venous distention (JVD) and difficult exam secondary to body habitus, without thyromegaly or masses, trachea is midline. Lymph: Without cervical or supraclavicular lymphadenopathy. Lungs: Symmetric excursion, good air entry, no wheeze, rhonchi or significant crackle on tidal excursion. Normal I:E. No accessory muscles usage or retractions. Cardiovascular: Tachycardic, irregularly irregular, normal S1, S2. No murmur, rub or gallop appreciated. Abdomen: Positive bowel sounds, soft, nondistended. Extremities: Warm and well perfused, palpable pedal pulses. Sequential compression devices (SCD) and thromboembolic deterrent stockings (TEDS) in place. LABORATORY DATA: CBC showed a hemoglobin 11.2, hematocrit 36.9, platelet count 189,000. White blood cell count 18,700 with a differential 92% neutrophils and 6% lymphocytes. Chemistries showed sodium 142, potassium 4.0, chloride 112, bicarbonate 17, anion gap 13, BUN 44 and creatinine 2.2, glucose 90, calcium 8.4 , CK 62, AST 102, ALT 55, alkaline phosphatase 136, total protein 5.2, albumin 1.9 , magnesium 1.8, phosphorus 2.3, LDH 382, total bilirubin 1.3. Yesterday's inputs and outputs were 3946 in and 1075 out making her positive 2871. Thus far today, 1077 in and 470 out making her positive 607. Urine culture was greater than 100,000 Klebsiella that had a minimal resistance spectrum. She has two positive blood cultures for gram negative rods with ID pending. Repeat blood culture yesterday is negative thus far. IMPRESSION: 1. Severe sepsis with shock felt secondary to urinary tract infection (UTI), with culture growing greater than 100,000 Klebsiella. There are positive blood cultures for gram negative rods with ID pending. 2. Hyperglycemia, on insulin drip that is being weaned. 3. Acute renal failure, slow improvement. She is making urine. 4. Atrial fibrillation with rapid ventricular response, followed by cardiology. 5. Pulmonary hypertension, moderately severe. 6. Elevated troponins, likely stress related. 7. Multiple skin lesions with superficial ulcers, followed by Dr. Cook. 8. Infectious disease (ID), on meropenem and vancomycin. We have a positive culture for Klebsiella. As soon as the blood culture results are back, I would narrow the antibiotics particularly given that meropenem and vancomycin can be "hard" on the kidneys and given her renal failure, would like to convert her to a less toxic antibiotic. 9. Deep venous thrombosis (DVT) prophylaxis, sequential compression devices (SCD) and thromboembolic deterrent stockings (TEDS). We will repeat an INR as I suspect she will likely need to start on a medicine for deep venous thrombosis prophylaxis as well. 10. Stress ulcer prophylaxis in place with proton pump inhibitor. 11. Nutrition. Currently n.p.o. RECOMMENDATIONS: 1. Continue to wean insulin drip as tolerated. 2. Continue on her current antibiotics of vancomycin and meropenem with plans to narrow them as soon as blood culture sensitivities are available. 3. Appreciate cardiology input in regards to atrial fibrillation with rapid ventricular rate (RVR). 4. Continue to wean Levophed with goal of map greater or equal to 65. 5. Appreciate primary team addressing code status with her sons. Again she will need a social service consult if she survives this illness. PROGNOSIS: Guarded. CRITICAL CARE TIME: 40 minutes, not including procedure time. [facility]
[2017-01-19 11:27] LABS: INR 2.05
--- NOTE | 2017-01-19 18:39 | EDDOCDS ---
Physician Documentation [facility] Name: Karen Painter Age: 71 yrs Sex: Female : 1945 Arrival Date: 01/17/2017 Time: 11:27 Bed 15 Private MD: Jann Sherman E. Disposition: 01/17/17 15:00 Hospitalization ordered by [facility]ero [place] for Inpatient Admission. Preliminary diagnosis are Acute kidney failure, Hyperglycemia, unspecified, Acidosis. - Bed requested for M ICU. - Status is Inpatient Admission. mcp - Condition is Stable. - Problem is new. - Symptoms are unchanged. Historical: - Allergies: nkda, but reports headache with keflex; - Home Meds: 1. magnesium oxide 400 mg Oral cap 400 mg twice a day (Last dose: 01/17/2017 06:00) 2. Lexapro 10 mg Oral tab 1 tab once daily (Last dose: 01/17/2017 06:00) 3. Eliquis 5 mg oral tab 1 tab 2 times per day (Last dose: 01/17/2017 06:00) 4. esomeprazole magnesium 40 mg Oral cpDR 1 cap once daily (Last dose: 01/17/2017 06:00) 5. Nitrostat 0.4 mg SL subl 1 tab every 5 minutes (Last dose: Unknown) 6. Pravachol 20 mg Oral tab 1 tab once daily (Last dose: 01/17/2017 06:00) 7. Levaquin 500 mg Oral tab 1 tab once daily (Last dose: 01/17/2017 06:00) 8. ramipril 10 mg Oral cap 1 cap once daily (Last dose: 01/17/2017 06:00) 9. bisoprolol fumarate 5 mg oral tab 1 tab twice daily (Last dose: 01/17/2017 06:00) 10. Tylenol 500 mg Oral as needed (Last dose: Unknown) 11. Humalog 100 unit/mL Sub-Q soln sliding scale at meals and bedtime - PMHx: Atrial Fib; CHF; COPD; Diabetes - IDDM: controlled; hyperlipidemia; Hypertension; Kidney stones; Osteoporosis; reflux; renal insufficency; venous insufficiency; - PSHx: none; - Social history: Smoking status: Patient states former smoker of tobacco. No barriers to communication noted, The patient speaks fluent Cuban, Speaks appropriately for age. - Family history: Not pertinent. - : The pt / caregiver states he / she is on anticoagulants: [employer] Home medication list is obtained from pill bottles. - Exposure Risk Screening:: None identified. Vital Signs: 01/17 11:38 BP 98 / 55 (auto/); kc3 11:38 Pulse 96 MON; Pulse Ox 96% ; kc3 11:40 BP 98 / 55; Pulse 103; Resp 22; Pulse Ox 96% on R/A; Weight 136.98 kg / 301.99 lbs (R); nb2 Height 5 ft. 4 in. (162.56 cm); 11:45 Temp 97.2; Pain 0/10; nb2 11:49 Pulse 66 MON; Pulse Ox 97% ; kc3 11:51 BP 84 / 47 (auto/); kc3 12:05 BP 91 / 61 (auto/); kc3 12:06 Pulse 52 MON; Pulse Ox 91% ; kc3 12:28 BP 105 / 60 (auto/); kc3 12:28 Pulse 78 MON; Pulse Ox 99% ; kc3 14:06 Pulse 70 MON; Pulse Ox 97% ; kc3 14:08 BP 124 / 73 (auto/); kc3 16:12 BP 114 / 61 (auto/); kc3 16:15 Pulse 92 MON; Pulse Ox 98% ; kc3 16:59 BP 109 / 73 (auto/); kc3 17:05 Pulse 88 MON; Pulse Ox 98% ; kc3 17:34 BP 120 / 72; Pulse 85; Resp 22; Temp 98.6(TE); Pulse Ox 98% 2 lpm ; Pain 0/10; kc3 11:40 Body Mass Index 51.84 (136.98 kg, 162.56 cm) nb2 MDM: 11:52 -Blood Culture (Adults Only), peripheral from different site, or from device/port/PICC sd1 etc. if present ordered. 11:52 Undress patient appropriately for examination ordered. sd1 11:52 NS 0.9% 1000 ml IV at 250 mL/hr continuous ordered. sd1 11:53 CT Head Without Contrast Ordered. EDMS 11:53 -Blood Culture Ordered. EDMS 11:53 Amylase Ordered. EDMS 11:53 Basic Metabolic Profile Ordered. EDMS 11:53 CBC with Diff Ordered. EDMS 11:53 Lipase Ordered. EDMS 11:53 Liver Profile Ordered. EDMS 11:53 Prothrombin Time Profile\E\INR Ordered. EDMS 11:53 Urinalysis Ordered. EDMS 11:53 Urine Culture Ordered. EDMS 11:54 Lactic Acid (Stern tube on ice) Ordered. EDMS 11:54 Chest, 1 View Ordered. EDMS 11:58 -Blood Culture (Adults Only), peripheral from different site, or from device/port/PICC jrd etc. if present complete. 12:01 BLOOD CULTURES Ordered. EDMS 12:17 Stool samples ordered. sd1 12:19 GASTROINTESTINAL (GI) PANEL Ordered. EDMS 12:19 Spine. Lumbosacral, Complete Ordered. EDMS 12:19 Spine, Thoracic 3 Views Ordered. EDMS 12:43 Promethazine 12.5 mg IVP once; dilute and administer 30-60 minutes ordered. sd1 12:46 MAGNESIUM LEVEL Ordered. EDMS 13:12 [facility] Payment Agreement was scanned into [employer] and attached to record. jp5 13:12 Financial registration complete. jp5 13:14 DIFFERENTIAL NO CHARGE Ordered. EDMS 13:14 PLATELET ESTIMATE Ordered. EDMS 13:20 CBC with Diff Reviewed. sd1 13:20 Prothrombin Time Profile\E\INR Reviewed. sd1 13:20 CT Head Without Contrast Reviewed. sd1 13:20 Chest, 1 View Reviewed. sd1 13:25 Amylase Reviewed. sd1 13:25 Basic Metabolic Profile Reviewed. sd1 13:25 Lipase Reviewed. sd1 13:25 Liver Profile Reviewed. sd1 13:25 MAGNESIUM LEVEL Reviewed. sd1 13:25 Osmolality, Serum Ordered. EDMS 13:26 NS 0.9% 1000 ml IV at 250 mL/hr continuous ordered. sd1 13:26 Insulin Regular Human Infusion (0.1units/kg/hr) 0.1 units/kg/hr IV at calculated rate sd1 Per protocol; 10 units/hr ordered. 13:26 cefTRIAXone 1 grams IVPB once over 30 mins; dilute in 50mL of NS or D5W ordered. sd1 13:27 Accucheck hourly ordered. sd1 13:28 BED REQUEST+ADM ordered. EDMS 13:33 Lactic Acid (Stern tube on ice) Reviewed. sd1 13:34 Misc. Nursing Order ordered. sd1 13:35 Misc. Nursing Order ordered. sd1 13:36 CARDIAC INJURY PROFILE Ordered. EDMS 13:36 TROPONIN Ordered. EDMS 13:53 Amylase Reviewed. sd1 13:53 Basic Metabolic Profile Reviewed. sd1 13:53 Lipase Reviewed. sd1 13:53 Liver Profile Reviewed. sd1 13:53 MAGNESIUM LEVEL Reviewed. sd1 13:55 CT ABD & PELVIS: No Contrast Ordered. EDMS 14:05 Amylase Reviewed. sd1 14:05 Basic Metabolic Profile Reviewed. sd1 14:05 Lipase Reviewed. sd1 14:05 Liver Profile Reviewed. sd1 14:05 MAGNESIUM LEVEL Reviewed. sd1 14:05 Osmolality, Serum Reviewed. sd1 14:05 TROPONIN Reviewed. sd1 14:05 Call Respiratory ordered. sd1 14:07 -Arterial Blood Gas Ordered. EDMS 14:11 Amylase Reviewed. sd1 14:11 Basic Metabolic Profile Reviewed. sd1 14:11 Lipase Reviewed. sd1 14:11 Liver Profile Reviewed. sd1 14:11 MAGNESIUM LEVEL Reviewed. sd1 14:11 CARDIAC INJURY PROFILE Reviewed. sd1 14:11 TROPONIN Reviewed. sd1 14:21 Call Respiratory complete. jrd 14:33 RESPIRATORY PANEL Ordered. EDMS 14:43 ECG WITH READING ER PHYS+CARDIAG ordered. EDMS 14:54 CBC with Diff Reviewed. sd1 14:54 -Arterial Blood Gas Reviewed. sd1 14:54 PLATELET ESTIMATE Reviewed. sd1 14:54 Spine. Lumbosacral, Complete Reviewed. sd1 14:54 Spine, Thoracic 3 Views Reviewed. sd1 16:27 Admission / Observation Status ordered. EDMS 16:27 NPO DIET ordered. EDMS 16:28 LACTIC ACID LEVEL, LACTATE Ordered. EDMS 16:28 BASIC METABOLIC PROFILE Ordered. EDMS 16:33 CARDIAC MARKER PANEL Ordered. EDMS 16:33 TROPONIN Ordered. EDMS 01/18 10:54 T-Sheet-- Draft Copy was scanned into [employer] and attached to record. gb 10:54 ECG/EKG was scanned into [employer] and attached to record. gb 10:54 Rhythm Strip was scanned into [employer] and attached to record. Point of Care Testing: Blood Glucose: 01/17 15:20 Blood Glucose: High; kc3 16:49 Blood Glucose: High; kc3 Ranges: Administered Medications: 12:41 Drug: NS 0.9% 1000 ml [sodium chloride 0.9 % intravenous solution] Route: IV; Rate: 250 kc3 mL/hr; Site: right hand; 12:54 Drug: Promethazine 12.5 mg [promethazine 25 mg/mL injection solution (0.5 mL)] Route: kc3 IVP; Site: right hand; 13:26 CANCELLED (Other Intervention Used): Cefepime 1 grams IVPB at 100 mL/hr once over 30 sd1 mins; dilute in 50mL of NS or D5W 13:32 Not Given (Duplicate Order): NS 0.9% 1000 ml IV at 250 mL/hr continuous kc3 14:18 Drug: Insulin Regular Human Infusion (0.1units/kg/hr) 13.698 units/hr [insulin regular kc3 human 100 unit/mL injection solution] {Co-Signature: ms2 (Barrington Senior RN).} Route: IV; Rate: calculated rate; Site: left wrist; 14:18 Drug: cefTRIAXone 1 grams [ceftriaxone 1 gram solution for injection] Route: IVPB; kc3 Infused Over: 30 mins; Site: right hand; 16:48 Follow up: IV Status: Completed infusion kc3 Signatures: Dispatcher [employer] EDMS Li Andres MD MD sd1 Marcia Hughes RN RN mcp Maria D Dong, Reg Reg gb Renee Newton,JOSUE SALAS dsf Zhang Carr, DRY STARCH SUPERVISOR DRY STARCH SUPERVISOR Daisy Oviedo jp5 Barrington Bradford, JOSUE RN Belle Bauer RN RN kc3 Barrington Senior RN ms2 The chart was reviewed and I authenticate all verbal orders and agree with the evaluation and treatment provided.Corrections: (The following items were deleted from the chart) 12:19 12:18 GASTROINTESTINAL (GI) PANEL+TEMITOPE ordered. EDMS EDMS 12:48 11:54 MAGNESIUM LEVEL+LAB ordered. EDMS EDMS 13:26 13:25 Cefepime 1 grams IVPB at 100 mL/hr once over 30 mins; dilute in 50mL of NS or D5W sd1 ordered. sd1 13:35 13:28 CARDIAC INJURY PROFILE+LAB ordered. EDMS EDMS 13:35 13:28 TROPONIN+LAB ordered. EDMS EDMS Attachments: 13:12 [facility] Payment Agreement jp5 01/18 10:54 T-Sheet-- Draft Copy gb 10:54 ECG/EKG gb Chart Complete MTDD
--- NOTE | 2017-01-19 18:39 | EDDOCDS ---
Nurse's Notes [facility] Name: Karen Painter Age: 71 yrs Sex: Female : 1945 Arrival Date: 01/17/2017 Time: 11:27 Bed 15 Private MD: Jann Sherman E. Diagnosis: Acute kidney failure;Hyperglycemia, unspecified;Acidosis Presentation: 01/17 11:30 Presenting complaint: EMS states: pt fell at 0630 this morning. pt has been laying on dsf the floor unable to get up. pt incontinent of urine and stool. FSBS 587. BP 75/43. recent 112/88. pt reports weakness. pt reports n/v/d for the past 4 days. according to EMS there was stool throughout the house. Suicide/Homicide risk assessment- the patient denies having any suicidal and/or homicidal ideations and does not present with any other emotional, behavioral or mental health complaints. Status: Patient is not a instructor ground services or dependent. Transition of care: patient was not received from another setting of care. 11:30 Acuity: VIET Level 3 dsf 11:30 Method Of Arrival: Ambulance dsf 12:44 Adult Sepsis Screening: The patient does not have new or worsening altered mentation. kc3 Patient has a respiratory rate of greater than or equal to 22 (1 point). Systolic blood pressure is greater than 100. Patient has a qSOFA score of 1- Negative Sepsis Screen. Triage Assessment: 11:36 General: Appears in no apparent distress, Behavior is appropriate for age, cooperative. dsf Pain: Location: upper back Pain currently is 3 out of 10 on a pain scale. The patient is triaged at the bedside. See Assessment in Nurses Notes section of ED record. Neurological: Level of Consciousness is awake, alert. Respiratory: Airway is patent Respiratory effort is even, unlabored, Respiratory pattern is regular, symmetrical. GI: Reports diarrhea, nausea, vomiting. Derm: Skin is pink, warm & dry. Historical: - Allergies: nkda, but reports headache with keflex; - Home Meds: 1. magnesium oxide 400 mg Oral cap 400 mg twice a day (Last dose: 01/17/2017 06:00) 2. Lexapro 10 mg Oral tab 1 tab once daily (Last dose: 01/17/2017 06:00) 3. Eliquis 5 mg oral tab 1 tab 2 times per day (Last dose: 01/17/2017 06:00) 4. esomeprazole magnesium 40 mg Oral cpDR 1 cap once daily (Last dose: 01/17/2017 06:00) 5. Nitrostat 0.4 mg SL subl 1 tab every 5 minutes (Last dose: Unknown) 6. Pravachol 20 mg Oral tab 1 tab once daily (Last dose: 01/17/2017 06:00) 7. Levaquin 500 mg Oral tab 1 tab once daily (Last dose: 01/17/2017 06:00) 8. ramipril 10 mg Oral cap 1 cap once daily (Last dose: 01/17/2017 06:00) 9. bisoprolol fumarate 5 mg oral tab 1 tab twice daily (Last dose: 01/17/2017 06:00) 10. Tylenol 500 mg Oral as needed (Last dose: Unknown) 11. Humalog 100 unit/mL Sub-Q soln sliding scale at meals and bedtime - PMHx: Atrial Fib; CHF; COPD; Diabetes - IDDM: controlled; hyperlipidemia; Hypertension; Kidney stones; Osteoporosis; reflux; renal insufficency; venous insufficiency; - PSHx: none; - Social history: Smoking status: Patient states former smoker of tobacco. No barriers to communication noted, The patient speaks fluent Frisian, Speaks appropriately for age. - Family history: Not pertinent. - : The pt / caregiver states he / she is on anticoagulants: Eliqu Home medication list is obtained from pill bottles. - Exposure Risk Screening:: None identified. Screenin:44 Screening information is obtained from the patient. Fall risk: At risk due to kc3 immobility, The following interventions are performed due to a positive Fall Risk Screen: Fall Risk is added to Special Handling on the patient Summary Screen. A Fall Risk Bracelet was applied to the patient. Side Rails are placed in the up position. A Call Jensen is given with instruction to call for help when getting out of bed. Fall Alert bracelet is placed on the patient. Assistance ADL's: requires no assistance with activities of daily living. Abuse/DV Screen: The patient / caregiver reports he/she is: not in a situation that causes fear, pain or injury. Nutritional screening: No deficits noted. home support is adequate. 12:45 Advance Directives: Currently, there is no health care proxy. kc3 Assessment: 11:36 General: see triage nursing assessment . dsf 12:42 General: Appears in no apparent distress, comfortable, Behavior is appropriate for age, kc3 cooperative. Neurological: Level of Consciousness is awake, alert, obeys commands, Oriented to person, place, time. Respiratory: Airway is patent Respiratory effort is even, unlabored. GI: Reports nausea. Derm: Skin is pink, warm & dry. 13:50 General: Appears in no apparent distress, comfortable, Behavior is appropriate for age, kc3 cooperative. Pain: Denies pain. Neurological: Level of Consciousness is awake, alert, confused. Cardiovascular: Rhythm is irregular. Respiratory: Airway is patent Respiratory effort is even, unlabored. Derm: Skin is pink, warm & dry. 14:45 General: Appears in no apparent distress, comfortable, Behavior is appropriate for age, kc3 cooperative. Pain: Denies pain. Neurological: Level of Consciousness is awake, alert, confused. Cardiovascular: Rhythm is irregular. Respiratory: Airway is patent Respiratory effort is even, unlabored, Breath sounds are clear bilaterally. Derm: Skin is pink, warm & dry. 15:50 General: Appears in no apparent distress, comfortable, Behavior is appropriate for age, kc3 cooperative. Pain: Denies pain. Neurological: Level of Consciousness is awake, alert, confused, Oriented to person, place, time. Cardiovascular: Rhythm is irregular. Respiratory: Airway is patent Respiratory effort is even, unlabored. Derm: Skin is pink, warm & dry. 16:50 General: Appears in no apparent distress, comfortable, Behavior is appropriate for age, kc3 cooperative. 17:06 General: Appears in no apparent distress, comfortable, Behavior is appropriate for age, kc3 cooperative. Pain: Denies pain. Neurological: Level of Consciousness is awake, alert, confused. Cardiovascular: Rhythm is atrial fibrillation. Respiratory: Respiratory effort is even, unlabored. Derm: Skin is pink, warm & dry. 17:33 General: Appears in no apparent distress, comfortable, Behavior is appropriate for age, kc3 cooperative. Pain: Denies pain. Neurological: Level of Consciousness is awake, alert, confused. Cardiovascular: Rhythm is atrial fibrillation. Respiratory: Respiratory effort is even, unlabored. Derm: Skin is pink, warm & dry. Vital Signs: 11:38 BP 98 / 55 (auto/); kc3 11:38 Pulse 96 MON; Pulse Ox 96% ; kc3 11:40 BP 98 / 55; Pulse 103; Resp 22; Pulse Ox 96% on R/A; Weight 136.98 kg (R); Height 5 ft. nb2 4 in. (162.56 cm); 11:45 Temp 97.2; Pain 0/10; nb2 11:49 Pulse 66 MON; Pulse Ox 97% ; kc3 11:51 BP 84 / 47 (auto/); kc3 12:05 BP 91 / 61 (auto/); kc3 12:06 Pulse 52 MON; Pulse Ox 91% ; kc3 12:28 BP 105 / 60 (auto/); kc3 12:28 Pulse 78 MON; Pulse Ox 99% ; kc3 14:06 Pulse 70 MON; Pulse Ox 97% ; kc3 14:08 BP 124 / 73 (auto/); kc3 16:12 BP 114 / 61 (auto/); kc3 16:15 Pulse 92 MON; Pulse Ox 98% ; kc3 16:59 BP 109 / 73 (auto/); kc3 17:05 Pulse 88 MON; Pulse Ox 98% ; kc3 17:34 BP 120 / 72; Pulse 85; Resp 22; Temp 98.6(TE); Pulse Ox 98% 2 lpm ; Pain 0/10; kc3 11:40 Body Mass Index 51.84 (136.98 kg, 162.56 cm) nb2 Vitals: 11:36 Log In Time N/A - ambulance arrival. dsf ED Course: 11:28 Patient visited by Zhang Carr PCA. jrd 11:28 Belle Arenas,RN is Primary Nurse. jrd 11:28 Patient moved to Waiting jrd 11:28 Patient moved to 15 jrd 11:31 Jann Sherman is Private Physician. jrd 11:31 Li Andres MD is Attending Physician. sd1 11:32 Patient visited by Zhang Carr PCA. jrd 11:33 Triage Initiated dsf 11:40 Patient visited by Lisa Bond. nb2 11:40 Bed in low position. Call light in reach. Side rails up X2. 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 Pulse nb2 ox on. NIBP on. 11:42 Maintain field IV. Dressing intact. Good blood return noted. Site clean & dry. Gauge & dsf site: #20 gauge right hand . 11:43 Patient visited by Renee Newton RN. dsf 11:46 Patient visited by Lisa Bond. nb2 11:49 Patient visited by Li Andres MD. sd1 12:25 CT Head Without Contrast Returned. EDMS 12:41 Lactic Acid (Stern tube on ice) Sent. kc3 12:42 Patient visited by Belle Arenas,JOSUE. kc3 12:42 Amylase Sent. kc3 12:42 Basic Metabolic Profile Sent. kc3 12:42 CBC with Diff Sent. kc3 12:42 Lipase Sent. kc3 12:42 Liver Profile Sent. kc3 12:42 Prothrombin Time Profile\E\INR Sent. kc3 12:45 The patient / caregiver is instructed regarding the plan of care and ED course. kc3 12:54 BLOOD CULTURES Sent. nb2 12:54 MAGNESIUM LEVEL Sent. kc3 13:11 Chest, 1 View Returned. EDMS 13:12 [facility] was scanned into [employer] and attached to record. jp5 13:25 Notified attending ED physician of Critical lab value. Lactic acid---7.8. mcp 13:28 Patient visited by Belle Arenas RN. kc3 13:29 DIFFERENTIAL NO CHARGE Sent. kc3 14:39 -Arterial Blood Gas Sent. jh6 14:48 Spine, Thoracic 3 Views Returned. EDMS 14:48 Spine. Lumbosacral, Complete Returned. EDMS 14:55 Straight cath inserted 16 Fr. returned foster urine. Patient tolerated well. kc3 14:59 Patient visited by Belle Arenas RN. kc3 14:59 RESPIRATORY PANEL Sent. kc3 15:00 Vero Washington is Hospitalizing Provider. sd1 16:04 Patient visited by Lisa Bond. nb2 16:04 EKG done. (by ED staff). Reviewed by Li Andres MD. nb2 16:30 CT ABD & PELVIS: No Contrast Returned. EDMS 17:12 No procedures done that require assistance. kc3 01/18 10:54 T-Sheet-- Draft Copy was scanned into [employer] and attached to record. gb 10:54 ECG/EKG was scanned into [employer] and attached to record. gb 10:54 Rhythm Strip was scanned into [employer] and attached to record. gb Administered Medications: 01/17 12:41 Drug: NS 0.9% 1000 ml [sodium chloride 0.9 % intravenous solution] Route: IV; Rate: 250 kc3 mL/hr; Site: right hand; 12:54 Drug: Promethazine 12.5 mg [promethazine 25 mg/mL injection solution (0.5 mL)] Route: kc3 IVP; Site: right hand; 13:26 CANCELLED (Other Intervention Used): Cefepime 1 grams IVPB at 100 mL/hr once over 30 sd1 mins; dilute in 50mL of NS or D5W 13:32 Not Given (Duplicate Order): NS 0.9% 1000 ml IV at 250 mL/hr continuous kc3 14:18 Drug: Insulin Regular Human Infusion (0.1units/kg/hr) 13.698 units/hr [insulin regular kc3 human 100 unit/mL injection solution] {Co-Signature: ms2 (Barrington Senior RN).} Route: IV; Rate: calculated rate; Site: left wrist; 14:18 Drug: cefTRIAXone 1 grams [ceftriaxone 1 gram solution for injection] Route: IVPB; kc3 Infused Over: 30 mins; Site: right hand; 16:48 Follow up: IV Status: Completed infusion kc3 Attachments: 10:54 Rhythm Strip Point of Care Testing: Blood Glucose: 01/17 15:20 Blood Glucose: High; kc3 16:49 Blood Glucose: High; kc3 Ranges: RT: 14:39 ABG's drawn from right radial artery pressure held for 5 minutes no bleeding noted jh6 pressure bandage applied specimen sent pt. tolerated well. Order Results: Lab Order: Amylase; SPEC'M 01/17/17 12:39 Test: AMYLASE; Value: 13; Range: 25-115; Abnormal: Below low normal; Units: U/L; Status: F Lab Order: Basic Metabolic Profile; SPEC'M 01/17/17 12:39 Test: GLUCOSE, FASTING; Value: 710; Range: 83-110; Abnormal: Above upper panic limits; Units: MG/DL; Status: F Test: BLOOD UREA NITROGEN; Value: 39; Range: 7-18; Abnormal: Above high normal; Units: MG/DL; Status: F Test: CREATININE FOR GFR; Value: 3.09; Range: 0.55-1.02; Abnormal: Above high normal; Units: MG/DL; Status: F Test: GLOMERULAR FILTRATION RATE; Value: 15.7; Range: >39; Abnormal: Below low normal; Status: F Test: SODIUM LEVEL; Value: 130; Range: 136-145; Abnormal: Below low normal; Units: MEQ/L; Status: F Test: POTASSIUM SERUM; Value: 5.3; Range: 3.5-5.1; Abnormal: Above high normal; Units: MEQ/L; Status: F Test: CHLORIDE LEVEL; Value: 98; Range: 98-107; Units: MEQ/L; Status: F Test: CARBON DIOXIDE LEVEL; Value: 12; Range: 21-32; Abnormal: Below low normal; Units: MEQ/L; Status: F Test: ANION GAP; Value: 20; Range: 8-16; Abnormal: Above high normal; Units: MEQ/L; Status: F Test: CALCIUM LEVEL; Value: 10.1; Range: 8.8-10.2; Units: MG/DL; Status: F Test Note: ; Units are mL/min/1.73 m2 Chronic Kidney Disease Staging per NKF: Stage I & II GFR >=60 Normal to Mildly Decreased Stage III GFR 30-59 Moderately Decreased Stage IV GFR 15-29 Severely Decreased Stage V GFR <15 Very Little GFR Left ESRD GFR <15 on SEED PACKER Lab Order: CBC with Diff; SPEC'M 01/17/17 12:39 Test: WHITE BLOOD COUNT; Value: 25.6; Range: 4.0-10.0; Abnormal: Above high normal; Units: K/mm3; Status: F Test: RED BLOOD COUNT; Value: 4.98; Range: 4.00-5.40; Units: M/mm3; Status: F Test: HEMOGLOBIN; Value: 13.1; Range: 12.0-16.0; Units: g/dl; Status: F Test: HEMATOCRIT; Value: 45.9; Range: 36.0-47.0; Units: %; Status: F Test: MEAN CORPUSCULAR VOLUME; Value: 92.2; Range: 80.0-96.0; Units: fl; Status: F Test: MEAN CORPUSCULAR HEMOGLOBIN; Value: 26.3; Range: 27.0-33.0; Abnormal: Below low normal; Units: pg; Status: F Test: MEAN CORPUSCULAR HGB CONC; Value: 28.6; Range: 32.0-36.5; Abnormal: Below low normal; Units: g/dl; Status: F Test: RED CELL DISTRIBUTION WIDTH; Value: 17.0; Range: 11.5-14.5; Abnormal: Above high normal; Units: %; Status: F Test: PLATELET COUNT, AUTOMATED; Value: 223; Range: 150-450; Units: k/mm3; Status: F Test: NEUTROPHILS; Value: 88; Range: 35-75; Abnormal: Above high normal; Units: %; Status: F Test: BANDS; Value: 4; Range: < 11; Units: %; Status: F Test: LYMPHOCYTES; Value: 4; Range: 16-52; Abnormal: Below low normal; Units: %; Status: F Test: MONOCYTES; Value: 3; Range: 0-8; Units: %; Status: F Test: METAMYELOCYTES; Value: 1; Range: 0-0; Abnormal: Above high normal; Units: %; Status: F Test: HYPOCHROMASIA; Value: 2+; Status: F Test: ANISOCYTOSIS; Value: 1+; Status: F Lab Order: Lipase; [facility] 01/17/17 12:39 Test: LIPASE; Value: 32; Range: 73-393; Abnormal: Below low normal; Units: U/L; Status: F Lab Order: Liver Profile; [facility] 01/17/17 12:39 Test: AST/SGOT; Value: 53; Range: 15-37; Abnormal: Above high normal; Units: U/L; Status: F Test: ALT/SGPT; Value: 31; Range: 12-78; Units: U/L; Status: F Test: ALKALINE PHOSPHATASE; Value: 149; Range: 45-117; Abnormal: Above high normal; Units: U/L; Status: F Test: BILIRUBIN,TOTAL; Value: 2.4; Range: 0.2-1.0; Abnormal: Above high normal; Units: MG/DL; Status: F Test: BILIRUBIN,DIRECT; Value: 1.2; Range: 0.0-0.2; Abnormal: Above high normal; Units: MG/DL; Status: F Test: TOTAL PROTEIN; Value: 7.0; Range: 6.4-8.2; Units: GM/DL; Status: F Test: ALBUMIN; Value: 2.9; Range: 3.2-5.2; Abnormal: Below low normal; Units: GM/DL; Status: F Test: ALBUMIN/GLOBULIN RATIO; Value: 0.71; Range: 1.00-1.93; Abnormal: Below low normal; Status: F Lab Order: Prothrombin Time Profile\E\INR; SPEC'M 01/17/17 12:39 Test: PROTHROMBIN TIME; Value: 28.8; Range: 12.3-14.5; Abnormal: Above high normal; Units: SECONDS; Status: F Test: INR; Value: 2.71; Status: F Test Note: ; THERAPUTIC HUMAN INR VALUES INDICATIONS NORMAL RANGES PROPHYLAXIS/TREATMENT OF: VENOUS THROMBOSIS 2.0-3.0 PULMONARY EMBOLISM 2.0-3.0 PREVENTION OF SYSTEMIC EMBOLISM FROM: TISSUE HEART VALVES 2.0-3.0 ACUTE MYOCARDIAL INFARCTION 2.0-3.0 VALVULAR HEART DISEASE 2.0-3.0 ATRIAL FIBRILLATION 2.0-3.0 MECHANICAL VALVES(HIGH RISK) 2.5-3.5 RECURRENT MYOCARDIAL INFARCTION 2.5-3.5 Lab Order: Urinalysis; SPEC'M 01/17/17 14:55 Test: APPEARANCE, URINE; Value: TURBID; Range: CLEAR; Abnormal: Above high normal; Status: F Test: COLOR, URINE; Value: YELLOW; Range: YELLOW; Status: F Test: PH,URINE; Value: 5.0; Range: 5.0-9.0; Units: UNITS; Status: F Test: SPECIFIC GRAVITY URINE AUTO; Value: 1.013; Range: 1.002-1.035; Status: F Test: PROTEIN, URINE AUTO; Value: 3+; Range: NEGATIVE; Abnormal: Above high normal; Units: mg/dL; Status: F Test: GLUCOSE, URINE (UA) AUTO; Value: 3+; Range: NEGATIVE; Abnormal: Above high normal; Units: mg/dL; Status: F Test: KETONE, URINE AUTO; Value: TRACE; Range: NEGATIVE; Abnormal: Above high normal; Units: mg/dL; Status: F Test: UROBILINOGEN, URINE AUTO; Value: 0.2; Range: 0.0-2.0; Units: mg/dL; Status: F Test: BILIRUBIN, URINE AUTO; Value: NEGATIVE; Range: NEGATIVE; Status: F Test: NITRITE, URINE AUTO; Value: NEGATIVE; Range: NEGATIVE; Status: F Test: LEUKOCYTE ESTERASE, URINE AUTO; Value: 3+; Range: NEGATIVE; Abnormal: Above high normal; Status: F Test: BLOOD, URINE BLOOD; Value: 2+; Range: NEGATIVE; Abnormal: Above high normal; Status: F Test: WBC, URINE AUTO; Value: TNTC; Range: 0-3; Abnormal: Above high normal; Units: /HPF; Status: F Test: RBC, URINE AUTO; Value: 32; Range: 0-3; Abnormal: Above high normal; Units: /HPF; Status: F Test: BACTERIA, URINE AUTO; Value: 3+; Range: NEGATIVE; Abnormal: Above high normal; Status: F Test: SQUAMOUS EPITHELIAL CELL UR AU; Value: 4; Range: 0-6; Units: /HPF; Status: F Test: MUCUS, URINE; Value: SMALL; Range: NEGATIVE; Status: F Test: HYALINE CAST, URINE AUTO; Value: 0; Range: 0-1; Units: /LPF; Status: F Lab Order: Lactic Acid (Stern tube on ice); [facility] 01/17/17 12:39 Test: LACTIC ACID SEPSIS PROTOCOL; Value: 7.8; Range: 0.4-2.0; Abnormal: Above upper panic limits; Units: MMOL/L; Status: F Lab Order: MAGNESIUM LEVEL; [facility] 01/17/17 12:39 Test: MAGNESIUM LEVEL; Value: 1.5; Range: 1.8-2.4; Abnormal: Below low normal; Units: MG/DL; Status: F Lab Order: PLATELET ESTIMATE; [facility] 01/17/17 12:39 Test: PLATELET ESTIMATE; Value: NORMAL; Range: NORMAL; Status: F Lab Order: Osmolality, Serum; [facility] 01/17/17 12:39 Test: OSMOLALITY SERUM; Value: 332; Range: 280-301; Abnormal: Above high normal; Units: MOSM/KG; Status: F Lab Order: CARDIAC INJURY PROFILE; [facility] 01/17/17 12:39 Test: CPK CREATINE PHOSPHOKINASE; Value: 198; Range: 26-192; Abnormal: Above high normal; Units: U/L; Status: F Test: CK-MB VALUE MASS; Value: 3.9; Range: 0.0-3.6; Abnormal: Above high normal; Units: NG/ML; Status: F Test: MB/CK RELATIVE INDEX; Value: 1.96; Range: < OR =4; Status: F Test Note: ; DIAGNOSIS CRITERIA MMB ng/ml Relative Index (RI) NON-AMI < or = 5 N/A STERN ZONE > 5 < or = 4 AMI > 5 > 4 Lab Order: TROPONIN; [facility] 01/17/17 12:39 Test: TROPONIN I; Value: 0.19; Range: < 0.10; Abnormal: Above high normal; Units: NG/ML; Status: F Test Note: ; Troponin I Reference Interval for [employer] LOCI: 99th Percentile= 0.00-0.045 ng/ml Risk Stratification: <= 0.10 ng/ml Decreased Risk for Adverse Clinical Events. 0.10-1.50 ng/ml Increased Risk for Adverse Clinical Events. Evaluation of additional criterion and/or repeat testing in 2-6 hours is suggested to rule out myocardial damage. >= 1.50 ng/ml Indicative of Myocardial Injury. Lab Order: -Arterial Blood Gas; [facility] 01/17/17 14:30 Test: ABG pH (ARTERIAL); Value: 7.292; Range: 7.350-7.450; Abnormal: Below low normal; Units: UNITS; Status: F Test: ABG PARTIAL PRESSURE CO2; Value: 24.2; Range: 35.0-45.0; Abnormal: Below low normal; Units: mmHg; Status: F Test: ABG PARTIAL PRESSURE O2; Value: 93.1; Range: 75.0-100.0; Units: mmHg; Status: F Test: ABG TOTAL CO2; Value: 12.2; Range: 23.0-31.0; Abnormal: Below low normal; Units: MEQ/L; Status: F Test: ABG HCO3; Value: 11.4; Range: 22.0-26.0; Abnormal: Below low normal; Units: MEQ/L; Status: F Test: ABG BASE EXCESS; Value: -13.3; Range: -2.0-2.0; Abnormal: Below low normal; Status: F Test: ABG STANDARD HCO3; Value: 14.2; Range: 22.0-26.0; Abnormal: Below low normal; Units: MEQ/L; Status: F Test: ABG O2 SATURATION; Value: 96.4; Range: 95.0-99.0; Units: %; Status: F Test: ABG DEVICE; Value: NASAL ARTI; Status: F Lab Order: RESPIRATORY PANEL; [facility] 01/17/17 14:55 Test: RESPIRATORY PANEL; Value: RP PANEL RESULT NEGATIVE by PCR; Status: F Test: RESPIRATORY PANEL; Value: Comments:; Status: F Test Note: ; This respiratory PCR panel detects Influenza A H1, H3 and 2009 H1 viruses, Influenza B virus, Respiratory syncytial virus, Human metapneumovirus, Parainfluenza virus 1, 2, 3 and 4, Adenovirus, Rhinovirus/Enterovirus, Coronavirus HKU1, NL63, OC43 and 229E, Bordetella pertussis, Mycoplasma pneumoniae and Chlamydia pneumoniae. Lab Order: LACTIC ACID LEVEL, LACTATE; [facility] 01/17/17 17:02 Test: LACTIC ACID SEPSIS PROTOCOL; Value: 4.4; Range: 0.4-2.0; Abnormal: Above upper panic limits; Units: MMOL/L; Status: F Lab Order: BASIC METABOLIC PROFILE; [facility] 01/17/17 17:02 Test: GLUCOSE, FASTING; Value: 656; Range: 83-110; Abnormal: Above upper panic limits; Units: MG/DL; Status: F Test: BLOOD UREA NITROGEN; Value: 43; Range: 7-18; Abnormal: Above high normal; Units: MG/DL; Status: F Test: CREATININE FOR GFR; Value: 2.95; Range: 0.55-1.02; Abnormal: Above high normal; Units: MG/DL; Status: F Test: GLOMERULAR FILTRATION RATE; Value: 16.6; Range: >39; Abnormal: Below low normal; Status: F Test: SODIUM LEVEL; Value: 134; Range: 136-145; Abnormal: Below low normal; Units: MEQ/L; Status: F Test: POTASSIUM SERUM; Value: 4.3; Range: 3.5-5.1; Units: MEQ/L; Status: F Test: CHLORIDE LEVEL; Value: 102; Range: 98-107; Units: MEQ/L; Status: F Test: CARBON DIOXIDE LEVEL; Value: 17; Range: 21-32; Abnormal: Below low normal; Units: MEQ/L; Status: F Test: ANION GAP; Value: 15; Range: 8-16; Units: MEQ/L; Status: F Test: CALCIUM LEVEL; Value: 9.3; Range: 8.8-10.2; Units: MG/DL; Status: F Test Note: ; Units are mL/min/1.73 m2 Chronic Kidney Disease Staging per NKF: Stage I & II GFR >=60 Normal to Mildly Decreased Stage III GFR 30-59 Moderately Decreased Stage IV GFR 15-29 Severely Decreased Stage V GFR <15 Very Little GFR Left ESRD GFR <15 on SEED PACKER Radiology Order: CT Head Without Contrast Test: CT Head Without Contrast REASON FOR EXAMINATION: Trauma; CT HEAD WITHOUT CONTRAST:; ; HISTORY: Trauma.; ; COMPARISON: 03/27/2015.; ; Areas of decreased attenuation are present in the right basal ganglia. These; represent old lacunar infarctions. Areas of decreased attenuation are present in; the periventricular white matter. This represents small vessel ischemic disease.; There is no intraparenchymal hemorrhage, mass or midline shift. The ventricular; system and cortical sulci as well as subarachnoid space in the posterior fossa; are dilated consistent with minimal volume loss. There is no extracerebral; collection. There is no fracture. The visualized sinuses are clear.; ; IMPRESSION:; ; 1. Old right basal ganglia lacunar infarctions.; ; 2. Small vessel ischemic disease.; ; 3. Minimal volume loss.; ; ; Signed by; Juan Montoya MD 01/17/2017 12:47 P; Radiology Order: Chest, 1 View Test: Chest, 1 View REASON FOR EXAMINATION: Shortness of Breath; The clinical: Shortness of breath.; ; Comparison: 12/09/2016.; ; Findings:; Cardiomegaly is appreciated and mild bony vascular congestion cannot be excluded.; No obvious consolidation, effusion, or pneumothorax. Skeletal structures; demonstrate age-related changes.; ; Impression:; Cardiomegaly.; Cannot exclude mild pulmonary vascular congestion.; ; ; Signed by; Felipe Diop MD 01/17/2017 12:27 P; Radiology Order: Spine. Lumbosacral, Complete Test: Spine. Lumbosacral, Complete REASON FOR EXAMINATION: Trauma; Clinical: Trauma.; ; Technique: AP, lateral, bilateral oblique and coned-down views of the; lumbosacral spine.; ; Comparison: 03/28/2015.; ; Findings:; Osteopenia and advanced multilevel degenerative disc osteophyte complexes are; noted including bridging osteophytes, endplate sclerosis and disc space narrowing; with hypertrophic facet changes. Alignment and lordosis relatively maintained.; No acute fracture / compression injury or subluxation.; ; Impression:; Osteopenia and advanced multilevel degenerative changes.; No acute fracture / compression injury or subluxation.; ; ; Signed by; Felipe Diop MD 01/17/2017 02:09 P; Radiology Order: Spine, Thoracic 3 Views Test: Spine, Thoracic 3 Views REASON FOR EXAMINATION: Trauma; Clinical: Trauma.; ; Technique: AP, lateral, swimmers views.; ; Comparison: 02/09/2007; ; Findings:; Age-related degenerative changes include bridging osteophytes, osteopenia, and; endplate sclerosis with disc space narrowing. No obvious acute fracture /; compression injury or subluxation.; ; Impression:; Osteopenia and multilevel degenerative changes.; No acute fracture / compression injury or subluxation identified.; ; ; Signed by; Felipe Diop MD 01/17/2017 02:07 P; Radiology Order: CT ABD & PELVIS: No Contrast Test: CT ABD & PELVIS: No Contrast REASON FOR EXAMINATION: Abdomen Pain; Clinical: Acute generalized abdominal pain.; ; Comparison: 06/03/2016.; ; Findings:; Lung keith suggest mild interstitial edema with a small pericardial effusion.; ; Liver, spleen, atrophic pancreas, gallbladder, and bilateral adrenal glands are; normal for noncontrast evaluation. Kidneys demonstrate chronic atrophic changes; along with nephrolithiasis and renovascular calcifications. Bilateral; perinephric stranding is nonspecific and likely chronic and there is no evidence; for hydroureteronephrosis or obstructing ureteral calculus. The enteric system; is without obstruction or acute inflammatory process. Sigmoid diverticula noted; without acute diverticulitis. Pelvis demonstrates collapsed bladder and; age-appropriate uterus/adnexa. No ascites. No free air. No significant; adenopathy. Induration along the anterior abdominal wall is similar to prior; examination. Musculoskeletal structures demonstrate degenerative changes without; focal osseous abnormality.; ; Impression:; 1. Small pericardial effusion is suggested along with interstitial edema.; 2. Chronic changes to the bilateral kidneys including nephrolithiasis and; renovascular calcifications without hydroureteronephrosis.; 3. Sigmoid diverticula without acute diverticulitis.; 4. No ascites. No obvious acute intra-abdominal or pelvic pathology.; ; ; Signed by; Felipe Diop MD 01/17/2017 03:30 P; Outcome: 12:45 CT Study completed. [facility] 15:00 Decision to Hospitalize by Provider. sd1 17:35 Discharge Assessment: patient administered narcotics - no. The following High Risk [facility] Discharge criteria are identified: None. Admitted to ICU accompanied by nurse, accompanied by tech, via stretcher, with oxygen, on monitor, with chart. Condition: stable. Admission hand-off: Report called to [facility] ICU. Property :Personal belongings accompany Pt. 17:39 Patient left the ED. [facility] Signatures: Dispatcher [employer] EDMS Li Andres MD MD sd1 Marcia Hughes, RN RN [facility] Maria D Dong, Reg Reg Renee Sanders,RN RN dsf Chandrakant Negron jh6 Zhang Carr, VOICE NETWORK ENGINEER VOICE NETWORK ENGINEER Daisy Oviedo jp5 Belle [place]ren[place],RN RN kc3 Lisa Bond nb2 Barrington Senior RN ms2 Corrections: (The following items were deleted from the chart) 12:48 12:41 MAGNESIUM LEVEL+LAB sent. [facility] EDNE 17:08 16:50 General: Appears in no apparent distress, comfortable, Behavior is appropriate [facility] for age, cooperative, [facility] Chart Complete MTDD
[2017-01-19] MEDS: NYSTATIN 100,000 UNITS/GM TOPICAL PWD 15 GM TOP SCH (20:29)
[2017-01-19] MEDS: VANCOMYCIN HCL 1,000 MG, VIAL MATE ADAPTER 1 EACH in D5W 250 ML IV SCH (22:13)
[2017-01-20] VITALS (19 sets, daily range): BP systolic 93–128; BP diastolic 50–81
[2017-01-20] MEDS: PANTOPRAZOLE 40MG INJ (PROTONIX) (C9113) IV SCH (00:12)
[2017-01-20] MEDS: MEROPENEM INJ 500 MG in D5W MINI-BAG PLUS 100 ML IV SCH ×2 (00:12→13:56)
[2017-01-20 04:40] LABS: MEAN CORPUSCULAR HEMOGLOBIN 26.1 pg (27.0-33.0); MEAN CORPUSCULAR HGB CONC 29.9 g/dl (32.0-36.5); MEAN CORPUSCULAR VOLUME 87.4 fl (80.0-96.0); PLATELET COUNT, AUTOMATED 130 k/mm3 (150-450); RED CELL DISTRIBUTION WIDTH 17.3 % (11.5-14.5); WHITE BLOOD COUNT 10.1 K/mm3 (4.0-10.0)
[2017-01-20 05:07] LABS: ALBUMIN 1.7 GM/DL (3.2-5.2); ALBUMIN/GLOBULIN RATIO 0.59 (1.00-1.93); BASOPHILS 1 % (0-4); BILIRUBIN,TOTAL 1.6 MG/DL (0.2-1.0); CALCIUM LEVEL 8.2 MG/DL (8.8-10.2); CREATININE FOR GFR 1.84 MG/DL (0.55-1.02); EOSINOPHILS 1 % (0-5); GLOMERULAR FILTRATION RATE 28.6 (>39); MAGNESIUM LEVEL 1.7 MG/DL (1.8-2.4); PHOSPHORUS LEVEL 3.5 MG/DL (2.5-4.9); TOTAL PROTEIN 4.6 GM/DL (6.4-8.2)
[2017-01-20 05:08] LABS: ANISOCYTOSIS 1+; HYPOCHROMASIA 3+
[2017-01-20 05:22] LABS: POTASSIUM SERUM 4.9 MEQ/L (3.5-5.1)
[2017-01-20] MEDS: INSULIN IV RATE CHANGE DOCUMENTATION ML/HR XX SCH (05:48)
[2017-01-20] MEDS: NS 1,000 ML IV SCH ×2 (08:31→20:45)
[2017-01-20] MEDS: NYSTATIN 100,000 UNITS/GM TOPICAL PWD 15 GM TOP SCH ×2 (08:32→20:46)
[2017-01-20] MEDS ORDERED: GLUCOSE 4 GM CHEW TABLET PO PRN (09:45)
[2017-01-20] MEDS ORDERED: DEXTROSE 50% 50 ML SYRINGE IV PRN (09:45)
[2017-01-20] MEDS ORDERED: GLUCAGON FOR INJ 1 MG VIAL (J1610) SC PRN (09:45)
--- NOTE | 2017-01-20 09:52 | IPNPDOC ---
Subjective Date Seen The patient was seen on 01/20/17. Subjective Chief Complaint/HPI Pt feeling much better this morning. She is hungry and thirsty. Her dgt is at her bedside. Pt is alert, oriented x 3 this morning, clearly stating she would like to be Full Code. General: Denies: Fatigue Constitutional: Denies: Chills, Fever Pulmonary: Denies: Cough, Dyspnea Cardiovascular: Denies: Chest Pain, Palpitations Gastrointestinal: Denies: Diarrhea, Nausea, Vomiting Neurological: Reports: Weakness Psych: Reports: Mood Normal Objective Physical Examination General Exam: Positive: Alert, No Acute Distress ENT Exam: Positive: Mucous membr. moist/pink Neck Exam: Positive: Supple, Negative: JVD Chest Exam: Positive: Diminished (throughout, tachypneic), Negative: Rales, Rhonchi, Wheezing Heart Exam: Positive: Irregular Rhythm, Tachycardic Abdomen Exam: Positive: Normal bowel sounds, Soft, Negative: Tenderness Extremity Exam: Negative: Edema Skin Exam: Positive: Lesion (lesions on abdomen, apparently recently evaluated and treated by Dr. Cook) Assessment /Plan Problems (1) Sepsis Status: Acute Discussed With: Family with Pt Consent Problem Specific Plan: Consult Specialist, Monitor Clinically, Repeat Labs, Repeat Tests Problem Text: WBC nearly normalized. Urine and Blood Cx + Kleb Pneumonia, will therefore d/c Vanco, cont with meropenam D4. Afebrile. Lactic acid has normalized. (2) Diabetes type 2, uncontrolled Status: Chronic Problem Specific Plan: Monitor Clinically, Repeat Labs Problem Text: D/c insulin drop, start clear liquid diet, change to FSBS qAC, qHS, with SSI coverage. (3) Atrial fibrillation Status: Chronic Problem Specific Plan: Consult Specialist, Monitor Clinically Problem Text: 01/20 - Rate reasonably controlled at this time, pressures stable , currently off pressors. Monitor. as outpt has been on Dig 250 mcg daily, as well as bisprolol 5 mg BID, resume Eliquis renally dosed today 01/19 Beta constance held due to sepsis and shock. Heart rate faster than desired at present but rate control med can only be added when pressure is adequate. Rate control not optimal but pressure maintenance takes priority. Cardiology was consulted. (4) UTI (urinary tract infection) Status: Acute Problem Specific Plan: Monitor Clinically, Repeat Labs Problem Text: 01/20 - Vanco d/c today cont with Meropenam d 4 (5) Renal failure (ARF), acute on chronic Status: Acute Response to Treatment: Improving Problem Specific Plan: Monitor Clinically, Repeat Labs Problem Text: Expect renal function to improve with remediation of sepsis state. nephrology consult is option. Plan/VTE VTE Prophylaxis Ordered?: Yes (Eliquis currently held) VTE Exclusion Pharmacological: Other (INR elevated. patient was on Eliquis but held for now due to acute sepsis syndrome ) Plan/Urinary Catheter Urinary Catheter: Place Kaufman Reason for insertion/continuin: Critical Pt monitoring Plan Anticipated Discharge: [facility] Attending note: I saw and evaluated the patient, and agree with the plan of care as discussed and document by Micha Mittal, with the following exceptions: Patient met criteria for severe sepsis on admission based on lactic acidosis and signs of end organ dysfunction and severe hypotension, requiring pressors, AK I, and A. fib with RVR. Patient is now off of pressors, and heart rate has stabilized. KENZIE is resolving Patient is eating, drinking, and conversant. Will plan for 1 more day in ICU, and plan to transition to PCU tomorrow if the patient remains stable today off of pressors. Micky Shirley MD VS, I&O, 24H, [facility] Vital Signs/I&O Vital Signs Date Time Temp Pulse Resp B/P Pulse Ox O2 Delivery O2 Flow Rate FiO2 01/20/17 09:00 95 24 102/53 96 High Flow Cannula 2.0 01/20/17 08:00 97.4 I&O- Last 24 Hours up to 6 AM 01/20/17 06:00 Intake Total 1959 ml Output Total 1445 ml Balance 514 ml Laboratory Data 24H LABS Laboratory Tests 2 01/19/17 10:14: Bedside Glucose (Misc Panel) 148H 01/19/17 11:10: Prothromb Time International Ratio 2.05, Prothrombin Time 23.2H 01/19/17 12:09: Bedside Glucose (Misc Panel) 127H 01/19/17 14:21: Bedside Glucose (Misc Panel) 156H 01/19/17 16:15: Bedside Glucose (Misc Panel) 122H 01/19/17 17:55: Bedside Glucose (Misc Panel) 132H 01/19/17 19:48: Bedside Glucose (Misc Panel) 91 01/19/17 23:18: Bedside Glucose (Misc Panel) 67L 01/20/17 00:10: Bedside Glucose (Misc Panel) 85 01/20/17 04:15: Blood Urea Nitrogen 43H, Creatinine 1.84H, Sodium Level 143, Potassium Level 4.9 #, Chloride Level 115H, Carbon Dioxide Level 17L, Calcium Level 8.2L, Phosphorus Level 3.5#, Aspartate Amino Transf (AST/SGOT) 148H, Alanine Aminotransferase (ALT/SGPT) 71, Lactate Dehydrogenase 498H, Total Creatine Kinase 53, Alkaline Phosphatase 145H, Total Bilirubin 1.6H, Triglycerides Level 131, Cholesterol Level 64, Total Protein 4.6L, Albumin 1.7L, Albumin/Globulin Ratio 0.59L, Anion Gap 11, Anisocytosis 1+, White Blood Count 10.1H, Red Blood Count 3.88L, Hemoglobin 10.1L, Hematocrit 33.9L, Mean Corpuscular Volume 87.4, Mean Corpuscular Hemoglobin 26.1L, Mean Corpuscular Hemoglobin Concent 29.9L, Red Cell Distribution Width 17.3H, Platelet Count 130L, Neutrophils (%) (Auto) , Lymphocytes (%) (Auto) , Monocytes (%) (Auto) , Eosinophils (%) (Auto) , Basophils (%) (Auto) , Neutrophils # (Auto) , Lymphocytes # (Auto) , Monocytes # (Auto) , Eosinophils # (Auto) , Basophils # (Auto) , Basophils (Manual) 1, Eosinophils (Manual) 1, Glomerular Filtration Rate 28.6L, Hypochromasia 3+, Large Unclassified Cells # , Large Unclassified Cells % , Lymphocytes (Manual) 3L, Magnesium Level 1.7L, Monocytes (Manual) 5, Neutrophils 90H, Platelet Estimate NORMAL, Red Blood Cell Morphology NORMAL 01/20/17 08:04: Bedside Glucose (Misc Panel) 201H CBC/BMP Laboratory Tests 01/20/17 04:15 Calcium Level 8.2 L, Phosphorus Level 3.5 #, Aspartate Amino Transf (AST/SGOT) 148 H, Alanine Aminotransferase (ALT/SGPT) 71, Lactate Dehydrogenase 498 H, Total Creatine Kinase 53, Alkaline Phosphatase 145 H, Total Bilirubin 1.6 H, Triglycerides Level 131, Cholesterol Level 64, Total Protein 4.6 L, Albumin 1.7 L, Red Blood Count 3.88 L, Mean Corpuscular Volume 87.4, Mean Corpuscular Hemoglobin 26.1 L, Mean Corpuscular Hemoglobin Concent 29.9 L, Red Cell Distribution Width 17.3 H, Neutrophils (%) (Auto) , Lymphocytes (%) (Auto) , Monocytes (%) (Auto) , Eosinophils (%) (Auto) , Basophils (%) (Auto) , Neutrophils # (Auto) , Lymphocytes # (Auto) , Monocytes # (Auto) , Eosinophils # (Auto) , Basophils # (Auto) Microbiology Microbiology 01/19/17 Blood Culture - Preliminary, Resulted No growth after 24 hours . All specim... 01/18/17 Blood Culture - Preliminary, Resulted No Growth after 48 hours. All Specime... 01/17/17 Blood Culture - Final, Complete Klebsiella Pneumoniae 01/17/17 Blood Culture - Final, Complete Klebsiella Pneumoniae 01/17/17 Respiratory Virus Panel (PCR) ([facility]) - Final, Complete 01/17/17 Urine Culture - Final, Complete Klebsiella Pneumoniae MICHA MITTAL PA-C Jan 20, 2017 09:52 MIKCY SHIRLEY MD Jan 20, 2017 16:10
[2017-01-20] MEDS: HumaLOG INSULIN (NovoLOG) PER UNIT SC SCH ×3 (11:42→20:45)
[2017-01-20] MEDS: APIXABAN 2.5 MG TAB (ELIQUIS) PO SCH ×2 (13:56→20:45)
[2017-01-20] MEDS: NOREPINEPHRINE BITARTRATE 8 MG in D5W 500 ML IV SCH (14:30)
[2017-01-20] MEDS ORDERED: MAGNESIUM CHLORIDE 64 MG TABCR (SLO MAG) PO ONE (18:00)
[2017-01-20] MEDS ORDERED: SODIUM CHLORIDE 0.9% INJ 10 ML SYR IV PRN (18:45)
[2017-01-20] MEDS: SODIUM CHLORIDE 0.9% INJ 10 ML SYR IV SCH (22:08)
[2017-01-21] VITALS (14 sets, daily range): BP systolic 106–142; BP diastolic 53–90
[2017-01-21] MEDS: PANTOPRAZOLE 40MG INJ (PROTONIX) (C9113) IV SCH (00:19)
[2017-01-21] MEDS: MEROPENEM INJ 500 MG in D5W MINI-BAG PLUS 100 ML IV SCH ×2 (00:20→12:10)
[2017-01-21] MEDS: SODIUM CHLORIDE 0.9% INJ 10 ML SYR IV SCH ×3 (05:54→21:39)
[2017-01-21] MEDS: NS 1,000 ML IV SCH (05:54)
[2017-01-21 06:15] LABS: BASO % 0.2 % (0.0-1.0); EOS # 0.2 K/mm3 (0.0-0.50); LARGE UNSTAINED CELL # 0.2 K/mm3 (0.0-0.4); LARGE UNSTAINED CELL % 2.2 % (0.0-4.0); LYMPH # 0.4 K/mm3 (1.5-4.5); LYMPH % 5.6 % (24.0-44.0); MEAN CORPUSCULAR HEMOGLOBIN 25.6 pg (27.0-33.0); MEAN CORPUSCULAR HGB CONC 28.7 g/dl (32.0-36.5); MEAN CORPUSCULAR VOLUME 89.1 fl (80.0-96.0); MONO # 0.6 K/mm3 (0.0-0.8); MONO % 7.8 % (0.0-5.0); NEUTROPHILS # 6.1 K/mm3 (1.8-7.7); NEUTROPHILS % 82.2 % (36.0-66.0); PLATELET COUNT, AUTOMATED 119 k/mm3 (150-450); RED CELL DISTRIBUTION WIDTH 17.1 % (11.5-14.5); WHITE BLOOD COUNT 7.4 K/mm3 (4.0-10.0)
[2017-01-21 06:58] LABS: ALBUMIN 1.8 GM/DL (3.2-5.2); ALBUMIN/GLOBULIN RATIO 0.64 (1.00-1.93); BILIRUBIN,TOTAL 1.5 MG/DL (0.2-1.0); CALCIUM LEVEL 8.4 MG/DL (8.8-10.2); CREATININE FOR GFR 1.58 MG/DL (0.55-1.02); GLOMERULAR FILTRATION RATE 34.1 (>39); MAGNESIUM LEVEL 1.5 MG/DL (1.8-2.4); PHOSPHORUS LEVEL 2.7 MG/DL (2.5-4.9); POTASSIUM SERUM 4.3 MEQ/L (3.5-5.1); TOTAL PROTEIN 4.6 GM/DL (6.4-8.2)
[2017-01-21] MEDS: HumaLOG INSULIN (NovoLOG) PER UNIT SC SCH ×4 (07:36→20:38)
--- NOTE | 2017-01-21 08:51 | IPNPDOC ---
Subjective Date Seen The patient was seen on 01/21/17. Subjective Chief Complaint/HPI Pt this morning is feeling pretty good. She notes her breathing continues to improve, cough without sputum production. General: Reports: Fatigue Constitutional: Denies: Chills, Fever Pulmonary: Reports: Cough, Dyspnea Cardiovascular: Denies: Chest Pain, Palpitations Gastrointestinal: Denies: Diarrhea, Nausea, Vomiting Psych: Reports: Mood Normal Objective Physical Examination General Exam: Positive: Alert, No Acute Distress ENT Exam: Positive: Mucous membr. moist/pink Neck Exam: Positive: Supple, Negative: JVD Chest Exam: Positive: Clear to auscultation, Diminished, Negative: Rales, Rhonchi, Wheezing Heart Exam: Positive: Irregular Rhythm, Rate Normal Abdomen Exam: Positive: Normal bowel sounds, Soft, Negative: Tenderness Extremity Exam: Negative: Edema Skin Exam: Positive: Lesion (lesions on abdomen, apparently recently evaluated and treated by Dr. Cook) Assessment /Plan Assessment Family Medicine Attending Note: I saw and examined Ms. Painter, discussed with BRANDO Smith. Agree with their note as documented. By the time I saw the patient in the afternoon she had been moved onto to [address] [place] [address]. Unfortunately she was suffering from delirium at that time. I strongly suspect that this is related to early dementia and hospital related delirium with a change in location. However I ordered further evaluation to assess for possible organic causes for this delirium. I discussed this all clearly with the family. We'll continue to monitor. 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 Urine and Blood Cx + Kleb Pneumonia, will therefore d/c Vanco, cont with meropenam D4. Afebrile. Lactic acid has normalized. (2) Acute delirium Status: Acute Discussed With: Nurse, Patient, Family with Pt Consent Problem Specific Plan: Monitor Clinically Problem Text: I feel that this is likely hospital related delirium and sundowning. I ordered labs to evaluate for organic causes. We'll monitor. (3) Diabetes type 2, uncontrolled Status: Chronic Problem Specific Plan: Monitor Clinically, Repeat Labs Problem Text: 01/21 - Will advance diet, add Levemir, cont with SSI. 01/20 - D/c insulin drop, start clear liquid diet, change to FSBS qAC, qHS, with SSI coverage. (4) Atrial fibrillation Status: Chronic Problem Specific Plan: Consult Specialist, Monitor Clinically Problem Text: 01/21 - D/c cardizem, add Bisoprolol this morning, at home dose of 5 mg BID. monitor her pressures 01/20 - Rate reasonably controlled at this time, pressures stable, currently off pressors. Monitor. as outpt has been on Dig 250 mcg daily, as well as bisprolol 5 mg BID, resume Eliquis renally dosed today 01/19 Beta constance held due to sepsis and shock. Heart rate faster than desired at present but rate control med can only be added when pressure is adequate. Rate control not optimal but pressure maintenance takes priority. Cardiology was consulted. (5) UTI (urinary tract infection) Status: Acute Problem Specific Plan: Monitor Clinically, Repeat Labs Problem Text: 01/20 - Vanco d/c today cont with Meropenam d 4 (6) Renal failure (ARF), acute on chronic Status: Acute Response to Treatment: Improving Problem Specific Plan: Monitor Clinically, Repeat Labs Problem Text: Expect renal function to improve with remediation of sepsis state. nephrology consult is option. Plan/VTE VTE Prophylaxis Ordered?: Yes (Eliquis currently held) VTE Exclusion Pharmacological: Other (INR elevated. patient was on Eliquis but held for now due to acute sepsis syndrome ) Plan/Urinary Catheter Urinary Catheter: Place Kaufman Reason for insertion/continuin: Critical Pt monitoring Plan Anticipated Discharge: Assisted VS, I&O, 24H, [facility] Vital Signs/I&O Vital Signs Date Time Temp Pulse Resp B/P Pulse Ox O2 Delivery O2 Flow Rate FiO2 01/21/17 06:09 92 112/56 95 Room Air 01/21/17 04:09 97.0 24 01/20/17 23:09 1.0 I&O- Last 24 Hours up to 6 AM 01/21/17 06:00 Intake Total 5545 ml Output Total 1670 ml Balance 3875 ml Laboratory Data 24H LABS Laboratory Tests 2 01/20/17 11:34: Bedside Glucose (Misc Panel) 218H 01/20/17 16:41: Bedside Glucose (Misc Panel) 313H 01/20/17 20:36: Bedside Glucose (Misc Panel) 392H 01/21/17 05:56: Blood Urea Nitrogen 43H, Creatinine 1.58H, Sodium Level 141, Potassium Level 4.3 , Chloride Level 112H, Carbon Dioxide Level 15L, Calcium Level 8.4L, Phosphorus Level 2.7#, Aspartate Amino Transf (AST/SGOT) 89H, Alanine Aminotransferase (ALT /SGPT) 62, Lactate Dehydrogenase 291H, Total Creatine Kinase 18L, Alkaline Phosphatase 152H, Total Bilirubin 1.5H, Triglycerides Level 159H, Cholesterol Level 72, Total Protein 4.6L, Albumin 1.8L, Albumin/Globulin Ratio 0.64L, Anion Gap 14, White Blood Count 7.4, Red Blood Count 3.72L, Hemoglobin 9.5L, Hematocrit 33.2L, Mean Corpuscular Volume 89.1, Mean Corpuscular Hemoglobin 25.6L, Mean Corpuscular Hemoglobin Concent 28.7L, Red Cell Distribution Width 17.1H, Platelet Count 119L, Neutrophils (%) (Auto) 82.2H, Lymphocytes (%) (Auto ) 5.6L, Monocytes (%) (Auto) 7.8H, Eosinophils (%) (Auto) 2.0, Basophils (%) ( Auto) 0.2, Neutrophils # (Auto) 6.1, Lymphocytes # (Auto) 0.4L, Monocytes # ( Auto) 0.6, Eosinophils # (Auto) 0.2, Basophils # (Auto) 0.0, Glomerular Filtration Rate 34.1L, Large Unclassified Cells # 0.2, Large Unclassified Cells % 2.2, Magnesium Level 1.5L CBC/BMP Laboratory Tests 01/21/17 05:56 Calcium Level 8.4 L, Phosphorus Level 2.7 #, Aspartate Amino Transf (AST/SGOT) 89 H, Alanine Aminotransferase (ALT/SGPT) 62, Lactate Dehydrogenase 291 H, Total Creatine Kinase 18 L, Alkaline Phosphatase 152 H, Total Bilirubin 1.5 H, Triglycerides Level 159 H, Cholesterol Level 72, Total Protein 4.6 L, Albumin 1.8 L, Red Blood Count 3.72 L, Mean Corpuscular Volume 89.1, Mean Corpuscular Hemoglobin 25.6 L, Mean Corpuscular Hemoglobin Concent 28.7 L, Red Cell Distribution Width 17.1 H, Neutrophils (%) (Auto) 82.2 H, Lymphocytes (%) (Auto ) 5.6 L, Monocytes (%) (Auto) 7.8 H, Eosinophils (%) (Auto) 2.0, Basophils (%) ( Auto) 0.2, Neutrophils # (Auto) 6.1, Lymphocytes # (Auto) 0.4 L, Monocytes # ( Auto) 0.6, Eosinophils # (Auto) 0.2, Basophils # (Auto) 0.0 Microbiology Microbiology 01/19/17 Blood Culture - Preliminary, Resulted No Growth after 48 hours. All Specime... 01/18/17 Blood Culture - Preliminary, Resulted No Growth after 72 hours. All specime... 01/17/17 Blood Culture - Final, Complete Klebsiella Pneumoniae 01/17/17 Blood Culture - Final, Complete Klebsiella Pneumoniae 01/17/17 Respiratory Virus Panel (PCR) ([facility]) - Final, Complete 01/17/17 Urine Culture - Final, Complete Klebsiella Pneumoniae MICHA MITTAL PA-C Jan 21, 2017 08:51 Tyler Rizzo MD Jan 21, 2017 19:40
[2017-01-21] MEDS: NYSTATIN 100,000 UNITS/GM TOPICAL PWD 15 GM TOP SCH ×2 (09:00→20:38)
[2017-01-21] MEDS: MAGNESIUM OXIDE 400 MG TAB (MAG-OX) PO SCH ×3 (09:21→20:37)
[2017-01-21] MEDS: PANTOPRAZOLE 40MG TAB (PROTONIX) PO SCH (09:22)
[2017-01-21] MEDS: BISOPROLOL FUMARATE 5 MG TAB PO SCH ×2 (09:22→20:37)
[2017-01-21] MEDS: APIXABAN 2.5 MG TAB (ELIQUIS) PO SCH ×2 (09:22→21:00)
[2017-01-21] MEDS: LEVEMIR (INSULIN DETEMIR) 1 UNITS/0.01ML SC SCH (09:22)
[2017-01-21] MEDS: LORazepam 2 MG/ML VIAL (J2060) IV PRN ×2 (14:52→18:57)
[2017-01-21 16:50] LABS: MEAN CORPUSCULAR HEMOGLOBIN 25.2 pg (27.0-33.0); MEAN CORPUSCULAR HGB CONC 28.5 g/dl (32.0-36.5); MEAN CORPUSCULAR VOLUME 88.6 fl (80.0-96.0); RED CELL DISTRIBUTION WIDTH 16.9 % (11.5-14.5); WHITE BLOOD COUNT 7.4 K/mm3 (4.0-10.0)
[2017-01-22] MEDS: MEROPENEM INJ 500 MG in D5W MINI-BAG PLUS 100 ML IV SCH ×3 (01:11→23:36)
[2017-01-22 02:00] VITALS: BP 141/68
[2017-01-22] MEDS: SODIUM CHLORIDE 0.9% INJ 10 ML SYR IV SCH ×3 (05:05→20:25)
[2017-01-22 05:26] LABS: BASO % 0.6 % (0.0-1.0); EOS # 0.2 K/mm3 (0.0-0.50); EOS % 2.9 % (0.0-3.0); LARGE UNSTAINED CELL # 0.3 K/mm3 (0.0-0.4); LARGE UNSTAINED CELL % 3.8 % (0.0-4.0); LYMPH # 0.4 K/mm3 (1.5-4.5); LYMPH % 6.6 % (24.0-44.0); MEAN CORPUSCULAR HEMOGLOBIN 26.1 pg (27.0-33.0); MEAN CORPUSCULAR HGB CONC 29.7 g/dl (32.0-36.5); MONO # 0.6 K/mm3 (0.0-0.8); MONO % 9.3 % (0.0-5.0); NEUTROPHILS # 5.1 K/mm3 (1.8-7.7); NEUTROPHILS % 76.8 % (36.0-66.0); PLATELET COUNT, AUTOMATED 146 k/mm3 (150-450); WHITE BLOOD COUNT 6.6 K/mm3 (4.0-10.0)
[2017-01-22] MEDS: LORazepam 2 MG/ML VIAL (J2060) IV PRN (05:26)
[2017-01-22 05:28] LABS: ADD MORPHOLOGY? YES
[2017-01-22 06:00] VITALS: BP 168/74
[2017-01-22 06:01] LABS: ALBUMIN 1.8 GM/DL (3.2-5.2); ALBUMIN/GLOBULIN RATIO 0.58 (1.00-1.93); BILIRUBIN,TOTAL 1.1 MG/DL (0.2-1.0); CALCIUM LEVEL 8.9 MG/DL (8.8-10.2); CREATININE FOR GFR 1.46 MG/DL (0.55-1.02); GLOMERULAR FILTRATION RATE 37.4 (>39); MAGNESIUM LEVEL 1.4 MG/DL (1.8-2.4); POTASSIUM SERUM 4.2 MEQ/L (3.5-5.1); TOTAL PROTEIN 4.9 GM/DL (6.4-8.2)
[2017-01-22 06:20] LABS: ANISOCYTOSIS 1+; HYPOCHROMASIA 1+
[2017-01-22 06:21] LABS: PHOSPHORUS LEVEL 2.1 MG/DL (2.5-4.9)
[2017-01-22] MEDS: BISOPROLOL FUMARATE 5 MG TAB PO SCH ×2 (09:00→20:24)
[2017-01-22] MEDS: NYSTATIN 100,000 UNITS/GM TOPICAL PWD 15 GM TOP SCH ×2 (09:07→20:25)
[2017-01-22] MEDS: HumaLOG INSULIN (NovoLOG) PER UNIT SC SCH ×4 (09:07→20:48)
[2017-01-22] MEDS: LEVEMIR (INSULIN DETEMIR) 1 UNITS/0.01ML SC SCH (09:08)
[2017-01-22] MEDS: APIXABAN 2.5 MG TAB (ELIQUIS) PO SCH ×2 (09:08→20:25)
[2017-01-22] MEDS: MAGNESIUM OXIDE 400 MG TAB (MAG-OX) PO SCH ×3 (09:08→20:24)
[2017-01-22] MEDS: PANTOPRAZOLE 40MG TAB (PROTONIX) PO SCH (09:19)
[2017-01-22 10:00] VITALS: BP 159/72
[2017-01-22] MEDS: MAG SULF 1GM/100ML (MAG RUN) 1 GM in APPROPRIATE DILUENT 1 EA IV SCH ×2 (11:35→13:33)
[2017-01-22] MEDS ORDERED: FUROSEMIDE 40 MG/4 ML VIAL (J1940) IV ONE (12:00)
--- NOTE | 2017-01-22 12:49 | IPNPDOC ---
Subjective Date Seen The patient was seen on 01/22/17. Subjective Chief Complaint/HPI Nursing this morning reports pt is confused, sometimes combative, concerned about ability to swallow food, pocketing food in her cheek. Concerned about her breathing pattern. States that she has been confused since just after her arrival here from ICU. When I saw the pt she was agitated as she was being bathed. She was c/o her position in the bed and wanted to be moved, that she was cold, that the aides were being too rough with her. Because she was focused on the staff, it was difficult to obtain ROS. General: Reports: Fatigue Objective Physical Examination General Exam: Positive: Alert, Mild Distress, No Acute Distress (it seemed as though this was mostly related to her agitation from being bathed.) Eye Exam: Positive: PERRLA ENT Exam: Positive: Atraumatic Neck Exam: Positive: Supple, Negative: JVD Chest Exam: Positive: Diminished, Rales (bibasilarly.), Negative: Rhonchi, Wheezing Heart Exam: Positive: Rate Normal, Regular Rhythm Abdomen Exam: Positive: Normal bowel sounds, Soft, Negative: Tenderness Extremity Exam: Negative: Edema Skin Exam: Positive: Lesion (lesions on abdomen, apparently recently evaluated and treated by Dr. Cook) Assessment /Plan Assessment Family Medicine Attending Note: I saw and examined Ms. Painter, discussed with BRANDO Smith. Agree with their note as documented. The patient slept most of the day per nursing staff I think this is good, as I believe it will help her brain that is currently overstressed recover a little. The family is clear that they believe she is not safe in her home environment related to declines in her mental and physical function. They would like to meet with PFS as soon as possible to begin the discussion regarding appropriate placement for her. 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 Urine and Blood Cx + Kleb Pneumonia, will therefore d/c Vanco, cont with meropenam D4. Afebrile. Lactic acid has normalized. (2) Acute delirium Status: Acute Discussed With: Nurse, Patient, Family with Pt Consent Problem Specific Plan: Monitor Clinically Problem Text: 01/22 - this is not improved substantially today, however the patient did sleep. I believe that that will help her recover from her delirium if it is in fact hospital related delirium. 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 I ordered labs to evaluate for organic causes. We'll monitor. 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 01/20 - D/c insulin drop, start clear liquid diet, change to FSBS qAC, qHS, with SSI coverage. (4) Atrial fibrillation Status: Chronic Problem Specific Plan: Consult Specialist, Monitor Clinically Problem Text: 01/21 - D/c cardizem, add Bisoprolol this morning, at home dose of 5 mg BID. monitor her pressures 01/20 - Rate reasonably controlled at this time, pressures stable, currently off pressors. Monitor. as outpt has been on Dig 250 mcg daily, as well as bisprolol 5 mg BID, resume Eliquis renally dosed today 01/19 Beta constance held due to sepsis and shock. Heart rate faster than desired at present but rate control med can only be added when pressure is adequate. Rate control not optimal but pressure maintenance takes priority. Cardiology was consulted. (5) UTI (urinary tract infection) Status: Acute Problem Specific Plan: Monitor Clinically, Repeat Labs Problem Text: 01/20 - Vanco d/c today cont with Meropenam d 4 (6) Renal failure (ARF), acute on chronic Status: Acute Response to Treatment: Improving Problem Specific Plan: Monitor Clinically, Repeat Labs Problem Text: Expect renal function to improve with remediation of sepsis state. nephrology consult is option. Plan/VTE VTE Prophylaxis Ordered?: Yes (Eliquis currently held) VTE Exclusion Pharmacological: Other (INR elevated. patient was on Eliquis but held for now due to acute sepsis syndrome ) Plan/Urinary Catheter Urinary Catheter: Place Kaufman Reason for insertion/continuin: Critical Pt monitoring Plan Anticipated Discharge: [facility] Disposition ordered swallow eval based on nurse's concerns that she is pocketing food, this won't be done until tomorrow, I think she is slightly fluid overloaded and therefore will hold off on IVF right now. VS, I&O, 24H, [place] Vital Signs/I&O Vital Signs Date Time Temp Pulse Resp B/P Pulse Ox O2 Delivery O2 Flow Rate FiO2 01/22/17 10:00 97.0 95 29 159/72 94 Room Air 01/20/17 23:09 1.0 I&O- Last 24 Hours up to 6 AM 01/22/17 06:00 Intake Total 820 ml Output Total 1625 ml Balance -805 ml Laboratory Data 24H LABS Laboratory Tests 2 01/21/17 16:19: Ammonia 15, C-Reactive Protein, Quantitative 14.20H, Erythrocyte Sedimentation Rate 54H, Lactic Acid (Sepsis) 1.6 01/21/17 16:50: Bedside Glucose (Misc Panel) 368H 01/21/17 20:06: Bedside Glucose (Misc Panel) 320H 01/22/17 05:06: Blood Urea Nitrogen 34H, Creatinine 1.46H, Sodium Level 143, Potassium Level 4.2 , Chloride Level 114H, Carbon Dioxide Level 17L, Calcium Level 8.9, Phosphorus Level 2.1#L, Aspartate Amino Transf (AST/SGOT) 49H, Alanine Aminotransferase ( ALT/SGPT) 49, Lactate Dehydrogenase 258H, Total Creatine Kinase 13L, Alkaline Phosphatase 150H, Total Bilirubin 1.1H, Triglycerides Level 172H, Cholesterol Level 89, Total Protein 4.9L, Albumin 1.8L, Albumin/Globulin Ratio 0.58L, Anion Gap 12, Anisocytosis 1+, White Blood Count 6.6, Red Blood Count 4.03, Hemoglobin 10.5L, Hematocrit 35.4L, Mean Corpuscular Volume 88.0, Mean Corpuscular Hemoglobin 26.1L, Mean Corpuscular Hemoglobin Concent 29.7L, Red Cell Distribution Width 17.0H, Platelet Count 146L, Neutrophils (%) (Auto) 76.8H , Lymphocytes (%) (Auto) 6.6L, Monocytes (%) (Auto) 9.3H, Eosinophils (%) (Auto ) 2.9, Basophils (%) (Auto) 0.6, Neutrophils # (Auto) 5.1, Lymphocytes # (Auto) 0.4L, Monocytes # (Auto) 0.6, Eosinophils # (Auto) 0.2, Basophils # (Auto) 0.0, Glomerular Filtration Rate 37.4L, Hypochromasia 1+, Large Unclassified Cells # 0.3, Large Unclassified Cells % 3.8, Magnesium Level 1.4L, Platelet Estimate NORMAL 01/22/17 11:32: Bedside Glucose (Misc Panel) 408H CBC/BMP Laboratory Tests 01/21/17 16:19 Red Blood Count 4.03, Mean Corpuscular Volume 88.6, Mean Corpuscular Hemoglobin 25.2 L, Mean Corpuscular Hemoglobin Concent 28.5 L, Red Cell Distribution Width 16.9 H 01/22/17 05:06 Red Blood Count 4.03, Mean Corpuscular Volume 88.0, Mean Corpuscular Hemoglobin 26.1 L, Mean Corpuscular Hemoglobin Concent 29.7 L, Red Cell Distribution Width 17.0 H, Calcium Level 8.9, Phosphorus Level 2.1 #L, Aspartate Amino Transf (AST/ SGOT) 49 H, Alanine Aminotransferase (ALT/SGPT) 49, Lactate Dehydrogenase 258 H , Total Creatine Kinase 13 L, Alkaline Phosphatase 150 H, Total Bilirubin 1.1 H , Triglycerides Level 172 H, Cholesterol Level 89, Total Protein 4.9 L, Albumin 1.8 L, Neutrophils (%) (Auto) 76.8 H, Lymphocytes (%) (Auto) 6.6 L, Monocytes (% ) (Auto) 9.3 H, Eosinophils (%) (Auto) 2.9, Basophils (%) (Auto) 0.6, Neutrophils # (Auto) 5.1, Lymphocytes # (Auto) 0.4 L, Monocytes # (Auto) 0.6, Eosinophils # (Auto) 0.2, Basophils # (Auto) 0.0 Microbiology Microbiology 01/19/17 Blood Culture - Preliminary, Resulted No Growth after 72 hours. All specime... 01/18/17 Blood Culture - Preliminary, Resulted No Growth after 72 hours. All specime... 01/17/17 Blood Culture - Final, Complete Klebsiella Pneumoniae 01/17/17 Blood Culture - Final, Complete Klebsiella Pneumoniae 01/17/17 Respiratory Virus Panel (PCR) ([facility]) - Final, Complete 01/17/17 Urine Culture - Final, Complete Klebsiella Pneumoniae MICHA MITTAL PA-C Jan 22, 2017 12:49 Tlyer Rizzo MD Jan 22, 2017 20:35
[2017-01-22 14:00] VITALS: BP 126/73
[2017-01-22 22:00] VITALS: BP 139/80
[2017-01-23 02:00] VITALS: BP 109/80
[2017-01-23] MEDS: SODIUM CHLORIDE 0.9% INJ 10 ML SYR IV SCH ×3 (05:06→22:12)
[2017-01-23 05:41] LABS: BASO % 0.7 % (0.0-1.0); EOS # 0.3 K/mm3 (0.0-0.50); EOS % 4.2 % (0.0-3.0); LARGE UNSTAINED CELL # 0.2 K/mm3 (0.0-0.4); LARGE UNSTAINED CELL % 2.8 % (0.0-4.0); LYMPH # 0.6 K/mm3 (1.5-4.5); LYMPH % 9.5 % (24.0-44.0); MEAN CORPUSCULAR HEMOGLOBIN 25.8 pg (27.0-33.0); MEAN CORPUSCULAR HGB CONC 29.4 g/dl (32.0-36.5); MEAN CORPUSCULAR VOLUME 87.7 fl (80.0-96.0); MONO # 0.4 K/mm3 (0.0-0.8); MONO % 6.9 % (0.0-5.0); NEUTROPHILS # 4.8 K/mm3 (1.8-7.7); NEUTROPHILS % 76.1 % (36.0-66.0); PLATELET COUNT, AUTOMATED 158 k/mm3 (150-450); WHITE BLOOD COUNT 6.3 K/mm3 (4.0-10.0)
[2017-01-23 06:00] VITALS: BP 124/73
[2017-01-23 06:01] LABS: ALBUMIN 1.7 GM/DL (3.2-5.2); ALBUMIN/GLOBULIN RATIO 0.49 (1.00-1.93); BILIRUBIN,TOTAL 0.9 MG/DL (0.2-1.0); CALCIUM LEVEL 9.1 MG/DL (8.8-10.2); CREATININE FOR GFR 1.32 MG/DL (0.55-1.02); MAGNESIUM LEVEL 1.6 MG/DL (1.8-2.4); POTASSIUM SERUM 3.9 MEQ/L (3.5-5.1); TOTAL PROTEIN 5.2 GM/DL (6.4-8.2)
[2017-01-23 06:08] LABS: ERYTHROCYTE SEDIMENTATION RATE 55 mm/hr (0-30)
[2017-01-23] MEDS: FUROSEMIDE 40 MG TAB PO SCH (08:33)
[2017-01-23] MEDS: MAGNESIUM OXIDE 400 MG TAB (MAG-OX) PO SCH ×3 (08:33→22:10)
[2017-01-23] MEDS: HumaLOG INSULIN (NovoLOG) PER UNIT SC SCH ×4 (08:33→22:12)
[2017-01-23] MEDS: BISOPROLOL FUMARATE 5 MG TAB PO SCH ×2 (08:34→22:11)
[2017-01-23] MEDS: APIXABAN 2.5 MG TAB (ELIQUIS) PO SCH ×2 (08:34→22:11)
[2017-01-23] MEDS: PANTOPRAZOLE 40MG TAB (PROTONIX) PO SCH (08:34)
[2017-01-23] MEDS: LEVEMIR (INSULIN DETEMIR) 1 UNITS/0.01ML SC SCH ×2 (09:00→17:44)
[2017-01-23] MEDS: NYSTATIN 100,000 UNITS/GM TOPICAL PWD 15 GM TOP SCH ×2 (09:00→22:12)
[2017-01-23 10:00] VITALS: BP 119/81
--- NOTE | 2017-01-23 11:35 | IPNPDOC ---
Subjective Date Seen The patient was seen on 01/23/17. Subjective Chief Complaint/HPI The patient is a 71-year-old female admitted with a reason for visit of Sepsis. Events since last encounter Pt denies CP, Abd pain, SOB. Constitutional: Denies: Chills, Fever Pulmonary: Denies: Dyspnea Cardiovascular: Denies: Chest Pain Gastrointestinal: Denies: Abdominal Pain, Nausea, Vomiting Objective Physical Examination General Exam: Positive: Alert, Mild Distress, No Acute Distress (it seemed as though this was mostly related to her agitation from being bathed.) Eye Exam: Positive: PERRLA ENT Exam: Positive: Atraumatic Neck Exam: Positive: Supple, Negative: JVD Chest Exam: Positive: Diminished, Rales (bibasilarly.), Negative: Rhonchi, Wheezing Heart Exam: Positive: Rate Normal, Regular Rhythm Abdomen Exam: Positive: Normal bowel sounds, Soft, Negative: Tenderness Extremity Exam: Negative: Edema Skin Exam: Positive: Lesion (lesions on abdomen, apparently recently evaluated and treated by Dr. Cook) Assessment /Plan Problems (1) Sepsis Status: Acute Discussed With: Family with Pt Consent Problem Specific Plan: Consult Specialist, Monitor Clinically, Repeat Labs, Repeat Tests Problem Text: 01/23 - Meropenam D7 01/22 - Meropenam D6 01/21 - Meropenam D5 01/20 WBC nearly normalized. Urine and Blood Cx + Kleb Pneumonia, will therefore d/c Vanco, cont with meropenam D4. Afebrile. Lactic acid has normalized. (2) Acute delirium Status: Acute Discussed With: Nurse, Patient, Family with Pt Consent Problem Specific Plan: Monitor Clinically Problem Text: 01/23 - Nursing notes improved today 01/22 - this is not improved substantially today, however the patient did sleep. I believe that that will help her recover from her delirium if it is in fact hospital related delirium. 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 I ordered labs to evaluate for organic causes. We'll monitor. 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 Levemir currently being held while NPO. 01/21 - Will advance diet, add Levemir, cont with SSI. 01/20 - D/c insulin drop, start clear liquid diet, change to FSBS qAC, qHS, with SSI coverage. (4) Atrial fibrillation Status: Chronic Problem Specific Plan: Consult Specialist, Monitor Clinically Problem Text: 01/23 - On Eliquis. On Bisoprolol 5 mg BID. 01/21 - D/c cardizem, add Bisoprolol this morning, at home dose of 5 mg BID. monitor her pressures 01/20 - Rate reasonably controlled at this time, pressures stable, currently off pressors. Monitor. as outpt has been on Dig 250 mcg daily, as well as bisprolol 5 mg BID, resume Eliquis renally dosed today 01/19 Beta constance held due to sepsis and shock. Heart rate faster than desired at present but rate control med can only be added when pressure is adequate. Rate control not optimal but pressure maintenance takes priority. Cardiology was consulted. (5) UTI (urinary tract infection) Status: Acute Problem Specific Plan: Monitor Clinically, Repeat Labs Problem Text: 01/23 - Meropenem D7 01/20 - Vanco d/c today cont with Meropenam d 4 (6) Renal failure (ARF), acute on chronic Status: Acute Response to Treatment: Improving Problem Specific Plan: Monitor Clinically, Repeat Labs Problem Text: Expect renal function to improve with remediation of sepsis state. nephrology consult is option. Plan/VTE VTE Prophylaxis Ordered?: Yes (Eliquis currently held) VTE Exclusion Pharmacological: Other (INR elevated. patient was on Eliquis but held for now due to acute sepsis syndrome ) Plan/Urinary Catheter Urinary Catheter: Place Kaufman Reason for insertion/continuin: Critical Pt monitoring Plan Anticipated Discharge: Longterm Attending attestation: I saw and evaluated the patient, and agree with the plan of care as discussed and documented by Felipe Carrillo. Patient was previously on 70 units of Levemir 3 times daily, per PCPs note. Given her current sugars off of insulin, I highly doubt that the patient is actually taking this quantity of insulin. However, nursing had held all of the patient's long-acting insulin, as the patient was not taking oral intake. She has since been started on pured diet, however her tray was full of carbohydrates, including potatoes, peas, applesauce, apple juice, and milk. Instructed nursing to change her dietary orders to reflect carb consistent diet in addition to pured. Instructed nursing to give patient 30 units of long-acting insulin as previous ordered by Felipe Carrillo, as she's had almost 60 units sliding scale insulin in last 24 hours. Patient is on day 6 of IV antibiotics for Klebsiella pneumonia bacteremia. We may want to consult with infectious disease to determine necessary length of treatment. PT evaluation ordered. Micky Shirley MD VS, I&O, 24H, Fishbone Vital Signs/I&O Vital Signs Date Time Temp Pulse Resp B/P Pulse Ox O2 Delivery O2 Flow Rate FiO2 01/23/17 10:00 96.7 80 18 119/81 92 Room Air 01/23/17 06:00 1.0 I&O- Last 24 Hours up to 6 AM 01/23/17 05:59 Intake Total 360 ml Output Total 4075 ml Balance -3715 ml Laboratory Data 24H LABS Laboratory Tests 2 01/22/17 11:32: Bedside Glucose (Misc Panel) 408H 01/22/17 16:37: Bedside Glucose (Misc Panel) 385H 01/22/17 20:26: Bedside Glucose (Misc Panel) 316H 01/23/17 05:07: Blood Urea Nitrogen 30H, Creatinine 1.32H, Sodium Level 145, Potassium Level 3.9 , Chloride Level 115H, Carbon Dioxide Level 21, Calcium Level 9.1, Aspartate Amino Transf (AST/SGOT) 28, Alanine Aminotransferase (ALT/SGPT) 34, Alkaline Phosphatase 133H, Total Bilirubin 0.9, Total Protein 5.2L, Albumin 1.7L, Albumin /Globulin Ratio 0.49L, Anion Gap 9, B-Type Natriuretic Peptide 228H, White Blood Count 6.3, Red Blood Count 4.06, Hemoglobin 10.5L, Hematocrit 35.7L, Mean Corpuscular Volume 87.7, Mean Corpuscular Hemoglobin 25.8L, Mean Corpuscular Hemoglobin Concent 29.4L, Red Cell Distribution Width 17.0H, Platelet Count 158 , Neutrophils (%) (Auto) 76.1H, Lymphocytes (%) (Auto) 9.5L, Monocytes (%) (Auto ) 6.9H, Eosinophils (%) (Auto) 4.2H, Basophils (%) (Auto) 0.7, Neutrophils # ( Auto) 4.8, Lymphocytes # (Auto) 0.6L, Monocytes # (Auto) 0.4, Eosinophils # ( Auto) 0.3, Basophils # (Auto) 0.0, C-Reactive Protein, Quantitative 8.94H, Erythrocyte Sedimentation Rate 55H, Glomerular Filtration Rate 42.0, Large Unclassified Cells # 0.2, Large Unclassified Cells % 2.8, Magnesium Level 1.6L CBC/BMP Laboratory Tests 01/23/17 05:07 Calcium Level 9.1, Aspartate Amino Transf (AST/SGOT) 28, Alanine Aminotransferase (ALT/SGPT) 34, Alkaline Phosphatase 133 H, Total Bilirubin 0.9 , Total Protein 5.2 L, Albumin 1.7 L, Red Blood Count 4.06, Mean Corpuscular Volume 87.7, Mean Corpuscular Hemoglobin 25.8 L, Mean Corpuscular Hemoglobin Concent 29.4 L, Red Cell Distribution Width 17.0 H, Neutrophils (%) (Auto) 76.1 H, Lymphocytes (%) (Auto) 9.5 L, Monocytes (%) (Auto) 6.9 H, Eosinophils (%) ( Auto) 4.2 H, Basophils (%) (Auto) 0.7, Neutrophils # (Auto) 4.8, Lymphocytes # ( Auto) 0.6 L, Monocytes # (Auto) 0.4, Eosinophils # (Auto) 0.3, Basophils # (Auto ) 0.0 Microbiology Microbiology 01/19/17 Blood Culture - Preliminary, Resulted No Growth after 72 hours. All specime... 01/18/17 Blood Culture - Final, Complete NO GROWTH AFTER 5 DAYS 01/17/17 Blood Culture - Final, Complete Klebsiella Pneumoniae 01/17/17 Blood Culture - Final, Complete Klebsiella Pneumoniae 01/17/17 Respiratory Virus Panel (PCR) ([facility]) - Final, Complete 01/17/17 Urine Culture - Final, Complete Klebsiella Pneumoniae Lauro Carrillo Jan 23, 2017 11:34 MICKY SHIRLEY MD Jan 23, 2017 19:16
[2017-01-23] MEDS: MEROPENEM INJ 500 MG in D5W MINI-BAG PLUS 100 ML IV SCH (12:55)
[2017-01-23 14:00] VITALS: BP 132/65
[2017-01-23 18:00] VITALS: BP 132/88
[2017-01-23 22:00] VITALS: BP 118/61
[2017-01-24] MEDS: MEROPENEM INJ 500 MG in D5W MINI-BAG PLUS 100 ML IV SCH ×2 (00:30→12:05)
[2017-01-24 02:00] VITALS: BP 138/80
[2017-01-24 05:36] LABS: BASO % 0.6 % (0.0-1.0); EOS # 0.2 K/mm3 (0.0-0.50); EOS % 2.5 % (0.0-3.0); LARGE UNSTAINED CELL # 0.1 K/mm3 (0.0-0.4); LARGE UNSTAINED CELL % 2.1 % (0.0-4.0); LYMPH # 0.9 K/mm3 (1.5-4.5); LYMPH % 11.3 % (24.0-44.0); MEAN CORPUSCULAR HEMOGLOBIN 26.3 pg (27.0-33.0); MEAN CORPUSCULAR HGB CONC 29.4 g/dl (32.0-36.5); MEAN CORPUSCULAR VOLUME 89.5 fl (80.0-96.0); MONO # 0.5 K/mm3 (0.0-0.8); MONO % 6.7 % (0.0-5.0); NEUTROPHILS # 5.2 K/mm3 (1.8-7.7); NEUTROPHILS % 76.9 % (36.0-66.0); PLATELET COUNT, AUTOMATED 203 k/mm3 (150-450); RED CELL DISTRIBUTION WIDTH 17.1 % (11.5-14.5); WHITE BLOOD COUNT 6.7 K/mm3 (4.0-10.0)
[2017-01-24 05:49] LABS: ALBUMIN 1.9 GM/DL (3.2-5.2); ALBUMIN/GLOBULIN RATIO 0.51 (1.00-1.93); BILIRUBIN,TOTAL 0.7 MG/DL (0.2-1.0); CALCIUM LEVEL 9.2 MG/DL (8.8-10.2); CREATININE FOR GFR 1.52 MG/DL (0.55-1.02); GLOMERULAR FILTRATION RATE 35.7 (>39); MAGNESIUM LEVEL 1.8 MG/DL (1.8-2.4); POTASSIUM SERUM 3.9 MEQ/L (3.5-5.1); TOTAL PROTEIN 5.6 GM/DL (6.4-8.2)
[2017-01-24 06:00] VITALS: BP 145/94
[2017-01-24] MEDS: SODIUM CHLORIDE 0.9% INJ 10 ML SYR IV SCH ×2 (06:00→14:18)
[2017-01-24] MEDS: PANTOPRAZOLE 40MG TAB (PROTONIX) PO SCH (08:13)
[2017-01-24] MEDS: APIXABAN 2.5 MG TAB (ELIQUIS) PO SCH ×2 (08:14→20:18)
[2017-01-24] MEDS: BISOPROLOL FUMARATE 5 MG TAB PO SCH ×2 (08:14→20:18)
[2017-01-24] MEDS: FUROSEMIDE 40 MG TAB PO SCH (08:14)
[2017-01-24] MEDS: HumaLOG INSULIN (NovoLOG) PER UNIT SC SCH ×4 (08:15→20:19)
[2017-01-24] MEDS: MAGNESIUM OXIDE 400 MG TAB (MAG-OX) PO SCH ×3 (08:15→20:17)
[2017-01-24] MEDS: NYSTATIN 100,000 UNITS/GM TOPICAL PWD 15 GM TOP SCH ×2 (08:16→20:32)
[2017-01-24] MEDS: LEVEMIR (INSULIN DETEMIR) 1 UNITS/0.01ML SC SCH (08:16)
[2017-01-24 10:00] VITALS: BP 124/85
--- NOTE | 2017-01-24 11:47 | IPNPDOC ---
Subjective Date Seen The patient was seen on 01/24/17. Subjective Chief Complaint/HPI The patient is a 71-year-old female admitted with a reason for visit of Sepsis. Events since last encounter Pt sleepy. Denies any new issues. Denies CP, SOB. Constitutional: Denies: Chills, Fever Pulmonary: Denies: Dyspnea Cardiovascular: Denies: Chest Pain Gastrointestinal: Denies: Abdominal Pain, Nausea, Vomiting Objective Physical Examination General Exam: Positive: Alert, Mild Distress, No Acute Distress (it seemed as though this was mostly related to her agitation from being bathed.) Eye Exam: Positive: PERRLA ENT Exam: Positive: Atraumatic Neck Exam: Positive: Supple, Negative: JVD Chest Exam: Positive: Diminished, Rales (bibasilarly.), Negative: Rhonchi, Wheezing Heart Exam: Positive: Rate Normal, Regular Rhythm Abdomen Exam: Positive: Normal bowel sounds, Soft, Negative: Tenderness Extremity Exam: Negative: Edema Skin Exam: Positive: Lesion (lesions on abdomen, apparently recently evaluated and treated by Dr. Cook) Assessment /Plan Problems (1) Sepsis Status: Acute Discussed With: Family with Pt Consent Problem Specific Plan: Consult Specialist, Monitor Clinically, Repeat Labs, Repeat Tests Problem Text: 01/24 - Meropenam D8 01/23 - Meropenam D7 01/22 - Meropenam D6 01/21 - Meropenam D5 01/20 WBC nearly normalized. Urine and Blood Cx + Kleb Pneumonia, will therefore d/c Vanco, cont with meropenam D4. Afebrile. Lactic acid has normalized. (2) Acute delirium Status: Acute Discussed With: Nurse, Patient, Family with Pt Consent Problem Specific Plan: Monitor Clinically Problem Text: 01/24 - Patient is about the same 01/23 - Nursing notes pt is improved today 01/22 - this is not improved substantially today, however the patient did sleep. I believe that that will help her recover from her delirium if it is in fact hospital related delirium. 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 I ordered labs to evaluate for organic causes. We'll monitor. 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 01/23- SSI. Levemir was held while NPO. 01/21 - Will advance diet, add Levemir, cont with SSI. 01/20 - D/c insulin drop, start clear liquid diet, change to FSBS qAC, qHS, with SSI coverage. (4) Atrial fibrillation Status: Chronic Problem Specific Plan: Consult Specialist, Monitor Clinically Problem Text: 01/24 - On Eliquis. On Bisoprolol 5 mg BID. 01/23 - On Eliquis. On Bisoprolol 5 mg BID. 01/21 - D/c cardizem, add Bisoprolol this morning, at home dose of 5 mg BID. monitor her pressures 01/20 - Rate reasonably controlled at this time, pressures stable, currently off pressors. Monitor. as outpt has been on Dig 250 mcg daily, as well as bisprolol 5 mg BID, resume Eliquis renally dosed today 01/19 Beta constance held due to sepsis and shock. Heart rate faster than desired at present but rate control med can only be added when pressure is adequate. Rate control not optimal but pressure maintenance takes priority. Cardiology was consulted. (5) UTI (urinary tract infection) Status: Acute Problem Specific Plan: Monitor Clinically, Repeat Labs Problem Text: 01/24 - Meropenem D8 01/23 - Meropenem D7 01/20 - Vanco d/c today cont with Meropenam d 4 (6) Renal failure (ARF), acute on chronic Status: Acute Response to Treatment: Improving Problem Specific Plan: Monitor Clinically, Repeat Labs Problem Text: Expect renal function to improve with remediation of sepsis state. nephrology consult is option. Plan/VTE VTE Prophylaxis Ordered?: Yes (Eliquis currently held) VTE Exclusion Pharmacological: Other (INR elevated. patient was on Eliquis but held for now due to acute sepsis syndrome ) Plan/Urinary Catheter Urinary Catheter: Place Kaufman Reason for insertion/continuin: Critical Pt monitoring Plan Anticipated Discharge: Long Term VS, I&O, 24H, Fishbone Vital Signs/I&O Vital Signs Date Time Temp Pulse Resp B/P Pulse Ox O2 Delivery O2 Flow Rate FiO2 01/24/17 08:14 76 148/88 01/24/17 06:00 96.1 20 92 Room Air 01/23/17 06:00 1.0 I&O- Last 24 Hours up to 6 AM 01/24/17 06:00 Intake Total 800 ml Output Total 1350 ml Balance -550 ml Laboratory Data 24H LABS Laboratory Tests 2 01/23/17 12:13: Bedside Glucose (Misc Panel) 350H 01/23/17 17:04: Bedside Glucose (Misc Panel) 368H 01/24/17 05:05: Blood Urea Nitrogen 32H, Creatinine 1.52H, Sodium Level 147H, Potassium Level 3.9, Chloride Level 114H, Carbon Dioxide Level 24, Calcium Level 9.2, Aspartate Amino Transf (AST/SGOT) 27, Alanine Aminotransferase (ALT/SGPT) 29, Alkaline Phosphatase 156H, Total Bilirubin 0.7, Total Protein 5.6L, Albumin 1.9L, Albumin /Globulin Ratio 0.51L, Anion Gap 9, White Blood Count 6.7, Red Blood Count 4.36 , Hemoglobin 11.5L, Hematocrit 39.0, Mean Corpuscular Volume 89.5, Mean Corpuscular Hemoglobin 26.3L, Mean Corpuscular Hemoglobin Concent 29.4L, Red Cell Distribution Width 17.1H, Platelet Count 203, Neutrophils (%) (Auto) 76.9H , Lymphocytes (%) (Auto) 11.3L, Monocytes (%) (Auto) 6.7H, Eosinophils (%) (Auto ) 2.5, Basophils (%) (Auto) 0.6, Neutrophils # (Auto) 5.2, Lymphocytes # (Auto) 0.9L, Monocytes # (Auto) 0.5, Eosinophils # (Auto) 0.2, Basophils # (Auto) 0.0, Glomerular Filtration Rate 35.7L, Large Unclassified Cells # 0.1, Large Unclassified Cells % 2.1, Magnesium Level 1.8 CBC/BMP Laboratory Tests 01/24/17 05:05 Calcium Level 9.2, Aspartate Amino Transf (AST/SGOT) 27, Alanine Aminotransferase (ALT/SGPT) 29, Alkaline Phosphatase 156 H, Total Bilirubin 0.7 , Total Protein 5.6 L, Albumin 1.9 L, Red Blood Count 4.36, Mean Corpuscular Volume 89.5, Mean Corpuscular Hemoglobin 26.3 L, Mean Corpuscular Hemoglobin Concent 29.4 L, Red Cell Distribution Width 17.1 H, Neutrophils (%) (Auto) 76.9 H, Lymphocytes (%) (Auto) 11.3 L, Monocytes (%) (Auto) 6.7 H, Eosinophils (%) ( Auto) 2.5, Basophils (%) (Auto) 0.6, Neutrophils # (Auto) 5.2, Lymphocytes # ( Auto) 0.9 L, Monocytes # (Auto) 0.5, Eosinophils # (Auto) 0.2, Basophils # (Auto ) 0.0 Microbiology Microbiology 01/19/17 Blood Culture - Final, Complete NO GROWTH AFTER 5 DAYS 01/18/17 Blood Culture - Final, Complete NO GROWTH AFTER 5 DAYS 01/17/17 Blood Culture - Final, Complete Klebsiella Pneumoniae 01/17/17 Blood Culture - Final, Complete Klebsiella Pneumoniae 01/17/17 Respiratory Virus Panel (PCR) ([facility]) - Final, Complete 01/17/17 Urine Culture - Final, Complete Klebsiella Pneumoniae Lauro Carrillo Jan 24, 2017 11:46
[2017-01-24 14:00] VITALS: BP 121/66
[2017-01-24 18:00] VITALS: BP 141/82
[2017-01-24 22:00] VITALS: BP 129/80
[2017-01-25] MEDS: MEROPENEM INJ 500 MG in D5W MINI-BAG PLUS 100 ML IV SCH ×2 (00:07→13:28)
[2017-01-25] MEDS: SODIUM CHLORIDE 0.9% INJ 10 ML SYR IV SCH ×2 (01:20→04:34)
[2017-01-25 03:00] VITALS: BP 128/75
[2017-01-25 06:00] VITALS: BP 135/77
[2017-01-25 06:59] LABS: BASO # 0.1 K/mm3 (0.0-0.2); EOS # 0.3 K/mm3 (0.0-0.50); EOS % 4.4 % (0.0-3.0); LARGE UNSTAINED CELL # 0.1 K/mm3 (0.0-0.4); LARGE UNSTAINED CELL % 2.2 % (0.0-4.0); LYMPH # 0.7 K/mm3 (1.5-4.5); LYMPH % 12.1 % (24.0-44.0); MEAN CORPUSCULAR HEMOGLOBIN 25.7 pg (27.0-33.0); MEAN CORPUSCULAR HGB CONC 29.4 g/dl (32.0-36.5); MEAN CORPUSCULAR VOLUME 87.5 fl (80.0-96.0); MONO # 0.3 K/mm3 (0.0-0.8); MONO % 4.9 % (0.0-5.0); NEUTROPHILS # 4.6 K/mm3 (1.8-7.7); NEUTROPHILS % 75.4 % (36.0-66.0); PLATELET COUNT, AUTOMATED 194 k/mm3 (150-450); RED CELL DISTRIBUTION WIDTH 17.4 % (11.5-14.5); WHITE BLOOD COUNT 6.1 K/mm3 (4.0-10.0)
[2017-01-25] MEDS ORDERED: SLF 3 ML SYR IV PRN (07:00)
[2017-01-25 07:22] LABS: ALBUMIN 1.8 GM/DL (3.2-5.2); ALBUMIN/GLOBULIN RATIO 0.47 (1.00-1.93); BILIRUBIN,TOTAL 0.9 MG/DL (0.2-1.0); CALCIUM LEVEL 9.4 MG/DL (8.8-10.2); CREATININE FOR GFR 1.29 MG/DL (0.55-1.02); GLOMERULAR FILTRATION RATE 43.1 (>39); POTASSIUM SERUM 3.6 MEQ/L (3.5-5.1); TOTAL PROTEIN 5.6 GM/DL (6.4-8.2)
[2017-01-25] MEDS: LEVEMIR (INSULIN DETEMIR) 1 UNITS/0.01ML SC SCH (09:39)
[2017-01-25] MEDS: BISOPROLOL FUMARATE 5 MG TAB PO SCH ×2 (09:42→21:37)
[2017-01-25] MEDS: HumaLOG INSULIN (NovoLOG) PER UNIT SC SCH ×4 (09:42→21:37)
[2017-01-25] MEDS: FUROSEMIDE 40 MG TAB PO SCH (09:43)
[2017-01-25] MEDS: APIXABAN 2.5 MG TAB (ELIQUIS) PO SCH ×2 (09:43→21:37)
[2017-01-25] MEDS: PANTOPRAZOLE 40MG TAB (PROTONIX) PO SCH (09:43)
[2017-01-25] MEDS: MAGNESIUM OXIDE 400 MG TAB (MAG-OX) PO SCH ×3 (09:43→21:37)
[2017-01-25] MEDS: NYSTATIN 100,000 UNITS/GM TOPICAL PWD 15 GM TOP SCH ×2 (09:44→21:38)
--- NOTE | 2017-01-25 09:52 | IPNPDOC ---
Subjective Date Seen The patient was seen on 01/25/17. Subjective Chief Complaint/HPI The patient is a 71-year-old female admitted with a reason for visit of Sepsis. Events since last encounter Pt sitting up in bed. Not lethargic today. Answers questions appropriately. Pt states she is feeling better. Denies CP, SOB, Abd pain. Constitutional: Denies: Chills, Fever Pulmonary: Denies: Dyspnea Cardiovascular: Denies: Chest Pain Gastrointestinal: Denies: Abdominal Pain, Nausea, Vomiting Objective Physical Examination General Exam: Positive: Alert, No Acute Distress Eye Exam: Positive: PERRLA ENT Exam: Positive: Atraumatic Neck Exam: Positive: Supple, Negative: JVD Chest Exam: Positive: Diminished, Rales (bibasilarly.), Negative: Rhonchi, Wheezing Heart Exam: Positive: Rate Normal, Regular Rhythm Abdomen Exam: Positive: Normal bowel sounds, Soft, Negative: Tenderness Extremity Exam: Negative: Edema Skin Exam: Positive: Lesion (lesions on abdomen, apparently recently evaluated and treated by Dr. Cook) Psych Exam: Positive: Other (Knows she is in the hosp, knows the year, knows the president) Assessment /Plan Problems (1) Sepsis Status: Acute Discussed With: Family with Pt Consent Problem Specific Plan: Consult Specialist, Monitor Clinically, Repeat Labs, Repeat Tests Problem Text: 01/25 - Meropenam D9. Urine cx Klebsilla. WBC WNL. Consider changing to PO. May need SNF when stable. D/W attending. JFW: d/c meropenem. Start cipro 01/24 - Meropenam D8 01/23 - Meropenam D7 01/22 - Meropenam D6 01/21 - Meropenam D5 01/20 WBC nearly normalized. Urine and Blood Cx + Kleb Pneumonia, will therefore d/c Vanco, cont with meropenam D4. Afebrile. Lactic acid has normalized. (2) Acute delirium Status: Acute Discussed With: Nurse, Patient, Family with Pt Consent Problem Specific Plan: Monitor Clinically Problem Text: 01/24 - Patient is about the same 01/23 - Nursing notes pt is improved today 01/22 - this is not improved substantially today, however the patient did sleep. I believe that that will help her recover from her delirium if it is in fact hospital related delirium. (servicer) 01/21 - I feel that this is likely hospital related delirium and sundowning. I ordered labs to evaluate for organic causes. We'll monitor. (servicer) (3) Diabetes type 2, uncontrolled Status: Chronic Problem Specific Plan: Monitor Clinically, Repeat Labs Problem Text: 01/25 - SSI and Levemir. JFW: BS 400s. levemir dose escalated 01/24 - SSI and Levemir. 01/23- SSI. Levemir was held while NPO. 01/21 - Will advance diet, add Levemir, cont with SSI. 01/20 - D/c insulin drop, start clear liquid diet, change to FSBS qAC, qHS, with SSI coverage. (4) Atrial fibrillation Status: Chronic Problem Specific Plan: Consult Specialist, Monitor Clinically Problem Text: 01/25 - On Eliquis. On Bisoprolol 5 mg BID. 01/24 - On Eliquis. On Bisoprolol 5 mg BID. 01/23 - On Eliquis. On Bisoprolol 5 mg BID. 01/21 - D/c cardizem, add Bisoprolol this morning, at home dose of 5 mg BID. monitor her pressures 01/20 - Rate reasonably controlled at this time, pressures stable, currently off pressors. Monitor. as outpt has been on Dig 250 mcg daily, as well as bisprolol 5 mg BID, resume Eliquis renally dosed today 01/19 Beta constance held due to sepsis and shock. Heart rate faster than desired at present but rate control med can only be added when pressure is adequate. Rate control not optimal but pressure maintenance takes priority. Cardiology was consulted. (5) UTI (urinary tract infection) Status: Acute Problem Specific Plan: Monitor Clinically, Repeat Labs Problem Text: 01/25 - Meropenem D9. Urine cx grew Klebsiella. JFW: d/c leo, start Cipro 01/24 - Meropenem D8 01/23 - Meropenem D7 01/20 - Vanco d/c today cont with Meropenam d 4 (6) Renal failure (ARF), acute on chronic Status: Acute Response to Treatment: Improving Problem Specific Plan: Monitor Clinically, Repeat Labs Problem Text: 01/25 - Creat 1.29 Expect renal function to improve with remediation of sepsis state. nephrology consult is option. Plan/VTE VTE Prophylaxis Ordered?: Yes (Eliquis currently held) VTE Exclusion Pharmacological: Other (INR elevated. patient was on Eliquis but held for now due to acute sepsis syndrome ) Plan/Urinary Catheter Urinary Catheter: Place Kaufman Reason for insertion/continuin: Critical Pt monitoring Plan Anticipated Discharge: Intermediate VS, I&O, 24H, Fishbone Vital Signs/I&O Vital Signs Date Time Temp Pulse Resp B/P Pulse Ox O2 Delivery O2 Flow Rate FiO2 01/25/17 06:00 96.3 91 18 135/77 97 Room Air 01/23/17 06:00 1.0 I&O- Last 24 Hours up to 6 AM 01/25/17 06:00 Intake Total 1140 ml Output Total 450 ml Balance 690 ml Laboratory Data 24H LABS Laboratory Tests 2 01/24/17 11:53: Bedside Glucose (Misc Panel) 518*H 01/24/17 11:54: Bedside Glucose (Misc Panel) 480H 01/24/17 16:49: Bedside Glucose (Misc Panel) 470H 01/24/17 19:58: Bedside Glucose (Misc Panel) 428H 01/25/17 06:35: Blood Urea Nitrogen 27H, Creatinine 1.29H, Sodium Level 147H, Potassium Level 3.6, Chloride Level 113H, Carbon Dioxide Level 25, Calcium Level 9.4, Aspartate Amino Transf (AST/SGOT) 31, Alanine Aminotransferase (ALT/SGPT) 25, Alkaline Phosphatase 135H, Total Bilirubin 0.9, Total Protein 5.6L, Albumin 1.8L, Albumin /Globulin Ratio 0.47L, Anion Gap 9, White Blood Count 6.1, Red Blood Count 4.32 , Hemoglobin 11.1L, Hematocrit 37.9, Mean Corpuscular Volume 87.5, Mean Corpuscular Hemoglobin 25.7L, Mean Corpuscular Hemoglobin Concent 29.4L, Red Cell Distribution Width 17.4H, Platelet Count 194, Neutrophils (%) (Auto) 75.4H , Lymphocytes (%) (Auto) 12.1L, Monocytes (%) (Auto) 4.9, Eosinophils (%) (Auto ) 4.4H, Basophils (%) (Auto) 1.0, Neutrophils # (Auto) 4.6, Lymphocytes # (Auto ) 0.7L, Monocytes # (Auto) 0.3, Eosinophils # (Auto) 0.3, Basophils # (Auto) 0.1 , Glomerular Filtration Rate 43.1, Large Unclassified Cells # 0.1, Large Unclassified Cells % 2.2 CBC/BMP Laboratory Tests 01/25/17 06:35 Calcium Level 9.4, Aspartate Amino Transf (AST/SGOT) 31, Alanine Aminotransferase (ALT/SGPT) 25, Alkaline Phosphatase 135 H, Total Bilirubin 0.9 , Total Protein 5.6 L, Albumin 1.8 L, Red Blood Count 4.32, Mean Corpuscular Volume 87.5, Mean Corpuscular Hemoglobin 25.7 L, Mean Corpuscular Hemoglobin Concent 29.4 L, Red Cell Distribution Width 17.4 H, Neutrophils (%) (Auto) 75.4 H, Lymphocytes (%) (Auto) 12.1 L, Monocytes (%) (Auto) 4.9, Eosinophils (%) ( Auto) 4.4 H, Basophils (%) (Auto) 1.0, Neutrophils # (Auto) 4.6, Lymphocytes # ( Auto) 0.7 L, Monocytes # (Auto) 0.3, Eosinophils # (Auto) 0.3, Basophils # (Auto ) 0.1 Microbiology Microbiology 01/19/17 Blood Culture - Final, Complete NO GROWTH AFTER 5 DAYS 01/18/17 Blood Culture - Final, Complete NO GROWTH AFTER 5 DAYS 01/17/17 Blood Culture - Final, Complete Klebsiella Pneumoniae 01/17/17 Blood Culture - Final, Complete Klebsiella Pneumoniae 01/17/17 Respiratory Virus Panel (PCR) (TEMITOPE) - Final, Complete 01/17/17 Urine Culture - Final, Complete Klebsiella Pneumoniae Lauro Carrillo Jan 25, 2017 09:52 Zhang Wilson MD Jan 25, 2017 15:13
[2017-01-25] MEDS: SLF 3 ML SYR IV SCH ×2 (13:29→21:38)
[2017-01-25 14:00] VITALS: BP 146/90
[2017-01-25] MEDS: CIPROFLOXACIN 500 MG TAB PO SCH (17:36)
[2017-01-25] MEDS ORDERED: HumaLOG INSULIN (NovoLOG) PER UNIT SC ONE (18:15)
[2017-01-25 22:00] VITALS: BP 132/77
[2017-01-26] MEDS: SLF 3 ML SYR IV SCH ×3 (05:11→22:00)
[2017-01-26] MEDS: CIPROFLOXACIN 500 MG TAB PO SCH ×3 (05:11→17:07)
[2017-01-26 06:00] VITALS: BP 130/90
[2017-01-26 06:07] LABS: ALBUMIN/GLOBULIN RATIO 0.53 (1.00-1.93); BASO % 0.7 % (0.0-1.0); BILIRUBIN,TOTAL 0.9 MG/DL (0.2-1.0); CALCIUM LEVEL 9.3 MG/DL (8.8-10.2); CREATININE FOR GFR 1.37 MG/DL (0.55-1.02); EOS # 0.2 K/mm3 (0.0-0.50); EOS % 3.1 % (0.0-3.0); GLOMERULAR FILTRATION RATE 40.2 (>39); LARGE UNSTAINED CELL # 0.2 K/mm3 (0.0-0.4); LARGE UNSTAINED CELL % 2.6 % (0.0-4.0); LYMPH # 0.9 K/mm3 (1.5-4.5); LYMPH % 13.5 % (24.0-44.0); MEAN CORPUSCULAR HEMOGLOBIN 25.4 pg (27.0-33.0); MEAN CORPUSCULAR VOLUME 87.7 fl (80.0-96.0); MONO # 0.3 K/mm3 (0.0-0.8); MONO % 4.3 % (0.0-5.0); NEUTROPHILS # 5.1 K/mm3 (1.8-7.7); NEUTROPHILS % 75.8 % (36.0-66.0); PLATELET COUNT, AUTOMATED 195 k/mm3 (150-450); RED CELL DISTRIBUTION WIDTH 17.3 % (11.5-14.5); TOTAL PROTEIN 5.8 GM/DL (6.4-8.2); WHITE BLOOD COUNT 6.7 K/mm3 (4.0-10.0)
[2017-01-26] MEDS: MAGNESIUM OXIDE 400 MG TAB (MAG-OX) PO SCH ×4 (10:04→20:31)
[2017-01-26] MEDS: LEVEMIR (INSULIN DETEMIR) 1 UNITS/0.01ML SC SCH (10:05)
[2017-01-26] MEDS: HumaLOG INSULIN (NovoLOG) PER UNIT SC SCH ×4 (10:05→20:32)
[2017-01-26] MEDS: FUROSEMIDE 40 MG TAB PO SCH (10:06)
[2017-01-26] MEDS: APIXABAN 2.5 MG TAB (ELIQUIS) PO SCH ×2 (10:06→20:31)
[2017-01-26] MEDS: PANTOPRAZOLE 40MG TAB (PROTONIX) PO SCH (10:06)
[2017-01-26] MEDS: BISOPROLOL FUMARATE 5 MG TAB PO SCH ×2 (10:09→20:31)
[2017-01-26] MEDS: NYSTATIN 100,000 UNITS/GM TOPICAL PWD 15 GM TOP SCH ×2 (10:10→20:32)
--- NOTE | 2017-01-26 10:53 | DSES ---
DATE OF ADMISSION: 01/17/2017 DATE OF DISCHARGE: 01/26/2017 (Transferred to ALC status) PRIMARY CARE PHYSICIAN: Jann Sherman MD ATTENDING PHYSICIAN: Zhagn Wilson MD HISTORY OF PRESENT ILLNESS Karen Painter is a 71-year-old female who presented to the ER after having a fall. She apparently became incontinent of urine and stool and was unable to reach the phone and finally her agile project manager found her and called EMS. She was found to have a fasting blood sugar of 587 and a systolic blood pressure 75/43. She was brought to the emergency department. She was worked up and felt to have sepsis secondary to a urinary tract infection. She had lactic acidosis secondary was sepsis. She was hypotensive. She was admitted for further evaluation and treatment. She was started on fluid resuscitation and norepinephrine for hypotension and sepsis. She was followed by critical care in ICU. She was initially placed on an insulin drip for diabetes. She has a history of atrial fibrillation and her rate control was not optimal; however, her pressures precedence. An echocardiogram was done. Echocardiogram shows LVEF 60%. Severe elevation of right ventricle systolic pressure and severe right atrial dilatation. Mild tricuspid regurgitation. Elevated central venous pressure. Calcific aortic valve disease with moderate aortic stenosis. Severe left atrial dilatation. The patient was seen by surgery for insertion of a triple lumen catheter. She continued to be managed by critical care for the severe sepsis and shock secondary to the UTI. Pressors were eventually discontinued. The patient's WBCs improved. She received meropenem for 9 days and was switched to oral Cipro. Vancomycin was discontinued on 01/20. The patient remained afebrile. She did have some delirium that was felt to be hospital related. This did seem to improve and by day of discharge to ALC status the patient had appropriate responses to questions. She remained on sliding-scale insulin and her Levemir was titrated. She was continued on Eliquis and bisoprolol was added for her atrial fibrillation. Her renal function improved. Plan is she will continue working with physical therapy. Medication list will be included on final discharge summary. PHYSICAL EXAMINATION: Temperature 96.4, pulse 90, respiratory rate 20, blood pressure is 124/80, pulse oximetry 95% on room air. GENERAL: The patient is alert, no acute distress. No respiratory distress. CHEST: Clear to auscultation bilaterally. HEART: Regular rate and rhythm. ABDOMEN: Positive bowel sounds. Soft, nontender, obese. EXTREMITIES: No edema. LABORATORY DATA: WBC 6.7, hemoglobin 11.4, hematocrit 39.3, platelets 195. Sodium 148, potassium 4.0, chloride 112, carbon dioxide 29, BUN 24, creatinine 1.37, glucose 296, calcium 9.3, total bili 0.9, AST 45, ALT 29, alk phos 147, total protein 5.8, albumin 2.0. DISCHARGE DIAGNOSES: Sepsis. Acute delirium. Diabetes mellitus type 2. Atrial fibrillation. Urinary tract infection with Klebsiella pneumoniae. Renal failure, acute on chronic. cc: Jann Sherman MD
[2017-01-26 20:31] VITALS: BP 145/67
[2017-01-27] MEDS: SLF 3 ML SYR IV SCH (05:42)
[2017-01-27] MEDS: CIPROFLOXACIN 500 MG TAB PO SCH (05:42)
[2017-01-27 06:00] VITALS: BP 133/93
[2017-01-27] MEDS: FUROSEMIDE 40 MG TAB PO SCH (08:05)
[2017-01-27] MEDS: PANTOPRAZOLE 40MG TAB (PROTONIX) PO SCH (08:05)
[2017-01-27] MEDS: APIXABAN 2.5 MG TAB (ELIQUIS) PO SCH (08:05)
[2017-01-27] MEDS: NYSTATIN 100,000 UNITS/GM TOPICAL PWD 15 GM TOP SCH (08:05)
[2017-01-27] MEDS: BISOPROLOL FUMARATE 5 MG TAB PO SCH (08:05)
[2017-01-27] MEDS: MAGNESIUM OXIDE 400 MG TAB (MAG-OX) PO SCH (08:05)
[2017-01-27] MEDS: HumaLOG INSULIN (NovoLOG) PER UNIT SC SCH ×2 (08:06→13:25)
[2017-01-27] MEDS: LEVEMIR (INSULIN DETEMIR) 1 UNITS/0.01ML SC SCH (08:06)
[2017-01-27] MEDS ORDERED: ELIQ2.5T PO (11:17)
[2017-01-27] MEDS ORDERED: FURO40TA2 PO (11:17)
[2017-01-27] MEDS ORDERED: CIPR500T89 PO (11:17)
[2017-01-27] MEDS ORDERED: NYST10PW TOP (11:17)
[2017-01-27] MEDS ORDERED: INSUDET SC (11:17)
[2017-01-27] MEDS ORDERED: MAG400TA PO (11:17)
[2017-01-28] MEDS ORDERED: LEVEMIR (INSULIN DETEMIR) 1 UNITS/0.01ML SC SCH (09:00)
== END 2017-01-27 14:02 | DRG 871 ==
LOC: M ED 11:27 → M ED INP 16:21 → M ICU 17:46 → M MSPAV 01-21 12:55
PROVIDERS: ADMIT Internal Medicine; ATTEND Family Medicine
PROC: 05HN33Z Insertion of Infusion Device into Left Internal Jugular Vein, Percutaneous Approach (ICD-10-PCS; principal; 2017-01-18)
DX: A41.9 Sepsis, unspecified organism (principal); R65.21 Severe sepsis with septic shock; I50.32 Chronic diastolic (congestive) heart failure; E87.2 Acidosis; N39.0 Urinary tract infection, site not specified; N17.9 Acute kidney failure, unspecified; I13.0 Hypertensive heart and chronic kidney disease with heart failure and stage 1 through stage 4 chronic kidney disease, or unspecified chronic kidney disease; Z68.42 Body mass index [BMI] 45.0-49.9, adult; I48.2 Chronic atrial fibrillation; E11.65 Type 2 diabetes mellitus with hyperglycemia; J44.9 Chronic obstructive pulmonary disease, unspecified; E66.9 Obesity, unspecified; E83.42 Hypomagnesemia; R32 Unspecified urinary incontinence; N18.9 Chronic kidney disease, unspecified; R15.9 Full incontinence of feces; E78.5 Hyperlipidemia, unspecified; I27.2 Other secondary pulmonary hypertension; E11.622 Type 2 diabetes mellitus with other skin ulcer; L98.499 Non-pressure chronic ulcer of skin of other sites with unspecified severity; B96.1 Klebsiella pneumoniae [K. pneumoniae] as the cause of diseases classified elsewhere; F03.90 Unspecified dementia, unspecified severity, without behavioral disturbance, psychotic disturbance, mood disturbance, and anxiety; R41.0 Disorientation, unspecified; Z79.4 Long term (current) use of insulin; Z79.899 Other long term (current) drug therapy; Z79.01 Long term (current) use of anticoagulants

== ENCOUNTER → 2017-01-31 | Outpatient (REF) ==
[~2017-01-31] MED LIST changes: +CIPR500T89 PO; +ELIQ2.5T PO; +MAGN400T5 PO
[2017-01-31 11:11] LABS: MEAN CORPUSCULAR HEMOGLOBIN 26.6 pg (27.0-33.0); MEAN CORPUSCULAR HGB CONC 29.8 g/dl (32.0-36.5); MEAN CORPUSCULAR VOLUME 89.4 fl (80.0-96.0); RED CELL DISTRIBUTION WIDTH 17.8 % (11.5-14.5)
[2017-01-31 11:30] LABS: CALCIUM LEVEL 9.2 MG/DL (8.8-10.2); CREATININE FOR GFR 1.35 MG/DL (0.55-1.02); GLOMERULAR FILTRATION RATE 40.9 (>39); MAGNESIUM LEVEL 1.6 MG/DL (1.8-2.4)
== END ==
PROVIDERS: ATTEND Internal Medicine
DX: I10 Essential (primary) hypertension (principal); E11.9 Type 2 diabetes mellitus without complications

== ENCOUNTER → 2017-02-07 | Outpatient (REF) ==
[2017-02-07 11:14] LABS: MEAN CORPUSCULAR HEMOGLOBIN 26.9 pg (27.0-33.0); MEAN CORPUSCULAR HGB CONC 30.3 g/dl (32.0-36.5); RED CELL DISTRIBUTION WIDTH 17.8 % (11.5-14.5); WHITE BLOOD COUNT 4.9 K/mm3 (4.0-10.0)
[2017-02-07 11:31] LABS: CALCIUM LEVEL 9.4 MG/DL (8.8-10.2); CREATININE FOR GFR 1.48 MG/DL (0.55-1.02); GLOMERULAR FILTRATION RATE 36.8 (>39); MAGNESIUM LEVEL 1.9 MG/DL (1.8-2.4); POTASSIUM SERUM 4.3 MEQ/L (3.5-5.1)
== END ==
PROVIDERS: ATTEND Internal Medicine
DX: I50.9 Heart failure, unspecified (principal)

== ENCOUNTER → 2017-02-14 | Outpatient (REF) ==
[2017-02-14 10:19] LABS: MEAN CORPUSCULAR HEMOGLOBIN 26.9 pg (27.0-33.0); MEAN CORPUSCULAR HGB CONC 30.6 g/dl (32.0-36.5); MEAN CORPUSCULAR VOLUME 88.1 fl (80.0-96.0); RED CELL DISTRIBUTION WIDTH 17.9 % (11.5-14.5); WHITE BLOOD COUNT 3.9 K/mm3 (4.0-10.0)
[2017-02-14 10:33] LABS: CALCIUM LEVEL 9.5 MG/DL (8.8-10.2); CREATININE FOR GFR 1.35 MG/DL (0.55-1.02); GLOMERULAR FILTRATION RATE 40.9 (>39); MAGNESIUM LEVEL 1.7 MG/DL (1.8-2.4); POTASSIUM SERUM 4.3 MEQ/L (3.5-5.1)
== END ==
PROVIDERS: ATTEND Internal Medicine
DX: I50.9 Heart failure, unspecified (principal)

== ENCOUNTER → 2017-02-15 | Outpatient (REF) | PROVIDERS: ATTEND Internal Medicine | DX: R73.9 Hyperglycemia, unspecified (principal) ==

== ENCOUNTER → 2017-03-01 | Outpatient (REF) | payer MEDICARE, MEDICAID ==
[2017-03-01 10:11] LABS: MEAN CORPUSCULAR HEMOGLOBIN 27.1 pg (27.0-33.0); MEAN CORPUSCULAR HGB CONC 31.2 g/dl (32.0-36.5); MEAN CORPUSCULAR VOLUME 86.8 fl (80.0-96.0); RED CELL DISTRIBUTION WIDTH 17.4 % (11.5-14.5); WHITE BLOOD COUNT 4.1 K/mm3 (4.0-10.0)
[2017-03-01 10:28] LABS: CALCIUM LEVEL 9.5 MG/DL (8.8-10.2); CREATININE FOR GFR 1.58 MG/DL (0.55-1.02); GLOMERULAR FILTRATION RATE 34.1 (>39); POTASSIUM SERUM 4.2 MEQ/L (3.5-5.1)
== END ==
PROVIDERS: ATTEND Internal Medicine
DX: I50.9 Heart failure, unspecified (principal)

== ENCOUNTER → 2017-03-29 | Outpatient (REF) | payer MEDICARE, MEDICAID ==
[2017-03-29 09:57] LABS: MEAN CORPUSCULAR HEMOGLOBIN 27.8 pg (27.0-33.0); MEAN CORPUSCULAR HGB CONC 31.7 g/dl (32.0-36.5); MEAN CORPUSCULAR VOLUME 87.6 fl (80.0-96.0); RED CELL DISTRIBUTION WIDTH 15.8 % (11.5-14.5); WHITE BLOOD COUNT 3.9 K/mm3 (4.0-10.0)
[2017-03-29 10:19] LABS: CALCIUM LEVEL 9.7 MG/DL (8.8-10.2); CREATININE FOR GFR 1.71 MG/DL (0.55-1.02); GLOMERULAR FILTRATION RATE 31.1 (>39); MAGNESIUM LEVEL 1.9 MG/DL (1.8-2.4); POTASSIUM SERUM 4.1 MEQ/L (3.5-5.1)
== END ==
PROVIDERS: ATTEND Internal Medicine
DX: I50.9 Heart failure, unspecified (principal); E11.69 Type 2 diabetes mellitus with other specified complication; L28.0 Lichen simplex chronicus; L98.499 Non-pressure chronic ulcer of skin of other sites with unspecified severity; N18.3 Chronic kidney disease, stage 3 (moderate)

== ENCOUNTER → 2017-04-14 | Outpatient (CLI) | payer MEDICARE, MEDICAID ==
--- NOTE | 2017-04-14 12:06 | REPMRS ---
Patient History The patient states she has not had a clinical breast exam in over a year. Patient is postmenopausal. Family history of breast cancer in mother at age 50 or over. Digital Woman Screen Mammo: April 14, 2017 - Exam #: [id number] Bilateral CC and MLO view(s) were taken. Technologist: Chasity Akers, Technologist Prior study comparison: April 18, 2016, digital woman screen mammo performed at [facility] to [facility]. January 10, 2014, digital woman screen mammo performed at [facility] to [facility]. January 19, 2011, bilateral bilat screen digital mammo performed at [facility] to [facility]. FINDINGS: There are scattered fibroglandular densities. There has been no change in the appearance of the mammogram from the prior studies. There is a mild amount of scattered fibroglandular density which is fairly symmetric. There is no interval development of dominant mass, architectural distortion, or clustered microcalcification suggestive of malignancy. ASSESSMENT: BI-RADS/ACR category 1 mammogram. Negative. Recommendation Routine screening mammogram in 1 year (for women over age 40). This mammogram was interpreted with the aid of an FDA-approved computer-aided dectection system. Electronically Signed By: Sharan Kirby MD 04/14/17 [id number]
== END ==
LOC: M WHC 10:11
PROVIDERS: ATTEND Internal Medicine
DX: Z12.31 Encounter for screening mammogram for malignant neoplasm of breast (principal); Z80.3 Family history of malignant neoplasm of breast

== ENCOUNTER → 2017-05-03 | Outpatient (REF) | payer MEDICARE, MEDICAID ==
[2017-05-03 10:40] LABS: MEAN CORPUSCULAR HEMOGLOBIN 28.2 pg (27.0-33.0); MEAN CORPUSCULAR HGB CONC 32.6 g/dl (32.0-36.5); MEAN CORPUSCULAR VOLUME 86.4 fl (80.0-96.0); RED CELL DISTRIBUTION WIDTH 15.1 % (11.5-14.5)
[2017-05-03 10:49] LABS: CALCIUM LEVEL 9.9 MG/DL (8.8-10.2); CREATININE FOR GFR 1.83 MG/DL (0.55-1.02); GLOMERULAR FILTRATION RATE 28.7 (>39); MAGNESIUM LEVEL 2.2 MG/DL (1.8-2.4); POTASSIUM SERUM 4.6 MEQ/L (3.5-5.1)
== END ==
PROVIDERS: ATTEND Internal Medicine
DX: E11.9 Type 2 diabetes mellitus without complications (principal)

== ENCOUNTER → 2017-06-02 | Outpatient (REF) | payer MEDICARE, MEDICAID ==
[~2017-06-02] MED LIST changes: +ACET650T3 PO; -ALTA10CA3 PO; +ALTA1CAP4 PO; +BACITAB PO; -BACITAB3 PO; +BENPAD EXT; +BISA10SU4 PR; +CIPR-249 PO; -CIPR500T89 PO; -COUM2.5T11 PO; +COUM2.5T17 PO; -COUM2TAB10 PO; +COUM2TAB22 PO; +DICY10CA13 PO; +ENEMENE16 PR; +GLUC1CHW11 PO; +HUMA100I5 SC; +KEFL500C17 PO; -KEFL500C7 PO; +LEVA1TAB PO; +LEVA1TAB2 PO; -LEVA250T PO; -LEVA500T PO; +LISI2.5T3 PO; +MAGN1TAB25 PO; -METF850T PO; +METF850T4 PO; +MILKSUS PO; -NYST100024 TOP; +NYST1POW9 TOP; +PRAV40TA2 PO; -SENO8.6T2 PO; +SENO8.6T5 PO; -SILV1CRE19 TOP; +SILV1CRE60 TOP; +VITMTA PO; +VOLT1GEL15 TD; +XARE15TA PO; -ZETI10TA2 PO; +ZETI10TA30 PO; -[UNRECOGNIZED DRUG - CODE] PO
[2017-06-02 10:31] LABS: MEAN CORPUSCULAR HEMOGLOBIN 28.1 pg (27.0-33.0); MEAN CORPUSCULAR HGB CONC 33.1 g/dl (32.0-36.5); MEAN CORPUSCULAR VOLUME 84.9 fl (80.0-96.0); RED CELL DISTRIBUTION WIDTH 14.8 % (11.5-14.5)
[2017-06-02 10:56] LABS: CREATININE FOR GFR 2.16 MG/DL (0.55-1.02); GLOMERULAR FILTRATION RATE 23.7 (>39); MAGNESIUM LEVEL 2.3 MG/DL (1.8-2.4); POTASSIUM SERUM 4.4 MEQ/L (3.5-5.1)
== END ==
PROVIDERS: ATTEND Internal Medicine
DX: I50.9 Heart failure, unspecified (principal)

== ENCOUNTER → 2017-06-05 | Outpatient (REF) | payer MEDICARE, MEDICAID ==
[2017-06-05 15:12] LABS: CALCIUM LEVEL 9.8 MG/DL (8.8-10.2); CREATININE FOR GFR 2.29 MG/DL (0.55-1.02); GLOMERULAR FILTRATION RATE 22.2 (>39); POTASSIUM SERUM 4.3 MEQ/L (3.5-5.1)
== END ==
PROVIDERS: ATTEND Internal Medicine
DX: N18.9 Chronic kidney disease, unspecified (principal)

== ENCOUNTER → 2017-06-09 | Outpatient (REF) | payer MEDICARE, MEDICAID ==
[2017-06-09 11:30] LABS: CALCIUM LEVEL 10.2 MG/DL (8.8-10.2); CREATININE FOR GFR 2.05 MG/DL (0.55-1.02); GLOMERULAR FILTRATION RATE 25.2 (>39); POTASSIUM SERUM 4.3 MEQ/L (3.5-5.1)
== END ==
PROVIDERS: ATTEND Internal Medicine
DX: N18.9 Chronic kidney disease, unspecified (principal)

== ENCOUNTER → 2017-06-20 | Outpatient (REF) | payer MEDICARE, MEDICAID ==
[2017-06-20 11:38] LABS: MEAN CORPUSCULAR HEMOGLOBIN 28.6 pg (27.0-33.0); MEAN CORPUSCULAR HGB CONC 33.1 g/dl (32.0-36.5); MEAN CORPUSCULAR VOLUME 86.4 fl (80.0-96.0); RED CELL DISTRIBUTION WIDTH 15.6 % (11.5-14.5); WHITE BLOOD COUNT 4.9 K/mm3 (4.0-10.0)
[2017-06-20 12:49] LABS: CALCIUM LEVEL 9.9 MG/DL (8.8-10.2); CREATININE FOR GFR 1.92 MG/DL (0.55-1.02); GLOMERULAR FILTRATION RATE 27.2 (>39); MAGNESIUM LEVEL 2.5 MG/DL (1.8-2.4); POTASSIUM SERUM 3.6 MEQ/L (3.5-5.1)
== END ==
PROVIDERS: ATTEND Internal Medicine
DX: I50.9 Heart failure, unspecified (principal)

== ENCOUNTER → 2017-06-21 | Outpatient (REF) | payer MEDICARE, MEDICAID ==
[2017-06-21 14:04] LABS: MEAN CORPUSCULAR HEMOGLOBIN 28.5 pg (27.0-33.0); MEAN CORPUSCULAR HGB CONC 33.3 g/dl (32.0-36.5); MEAN CORPUSCULAR VOLUME 85.5 fl (80.0-96.0); RED CELL DISTRIBUTION WIDTH 15.4 % (11.5-14.5)
[2017-06-21 14:08] LABS: CALCIUM LEVEL 9.5 MG/DL (8.8-10.2); CREATININE FOR GFR 1.87 MG/DL (0.55-1.02); MAGNESIUM LEVEL 2.4 MG/DL (1.8-2.4)
--- NOTE | 2017-06-21 18:14 | REP ---
HISTORY: Possible urinary calculi. A portable KUB was obtained and two images were necessary to include the abdomen and pelvis in total. Due to the marked limitations of the exam, small renal calculi could easily be obscured. No golf ball sized or larger calculi are noted. There are chronic changes seen involving the spine and hips. The intestinal gas pattern is nonspecific. IMPRESSION: Marked exam limitations. If urinary calculi are of clinical concern, then a noncontrast enhanced stone protocol CT is recommended. Signed by Darren Banuelos DO 06/22/2017 10:14 A
== END ==
PROVIDERS: ATTEND Internal Medicine
DX: R19.7 Diarrhea, unspecified (principal); N20.9 Urinary calculus, unspecified

== ENCOUNTER → 2017-06-22 | Outpatient (REF) | payer MEDICARE, MEDICAID | PROVIDERS: ATTEND Internal Medicine | DX: N20.0 Calculus of kidney (principal) ==

== ENCOUNTER → 2017-06-25 | Outpatient (REF) | payer MEDICARE, MEDICAID ==
[2017-06-25 06:33] LABS: MEAN CORPUSCULAR HEMOGLOBIN 28.1 pg (27.0-33.0); MEAN CORPUSCULAR HGB CONC 33.1 g/dl (32.0-36.5); MEAN CORPUSCULAR VOLUME 85.1 fl (80.0-96.0); RED CELL DISTRIBUTION WIDTH 15.3 % (11.5-14.5)
== END ==
PROVIDERS: ATTEND Internal Medicine
DX: I50.9 Heart failure, unspecified (principal)

== ENCOUNTER → 2017-06-28 | Outpatient (REF) | payer MEDICARE, MEDICAID ==
[2017-06-28 10:30] LABS: MEAN CORPUSCULAR HEMOGLOBIN 27.9 pg (27.0-33.0); MEAN CORPUSCULAR HGB CONC 32.9 g/dl (32.0-36.5); MEAN CORPUSCULAR VOLUME 84.7 fl (80.0-96.0); RED CELL DISTRIBUTION WIDTH 15.2 % (11.5-14.5); WHITE BLOOD COUNT 5.5 K/mm3 (4.0-10.0)
[2017-06-28 10:44] LABS: CALCIUM LEVEL 9.9 MG/DL (8.8-10.2); CREATININE FOR GFR 1.63 MG/DL (0.55-1.02); GLOMERULAR FILTRATION RATE 32.8 (>39); MAGNESIUM LEVEL 2.4 MG/DL (1.8-2.4); POTASSIUM SERUM 3.7 MEQ/L (3.5-5.1)
== END ==
PROVIDERS: ATTEND Internal Medicine
DX: I50.9 Heart failure, unspecified (principal)

== ENCOUNTER → 2017-08-01 | Outpatient (REF) | payer MEDICARE, MEDICAID ==
[2017-08-01 11:24] LABS: MEAN CORPUSCULAR HEMOGLOBIN 29.4 pg (27.0-33.0); MEAN CORPUSCULAR HGB CONC 33.5 g/dl (32.0-36.5); MEAN CORPUSCULAR VOLUME 87.8 fl (80.0-96.0); RED CELL DISTRIBUTION WIDTH 16.8 % (11.5-14.5); WHITE BLOOD COUNT 4.3 K/mm3 (4.0-10.0)
[2017-08-01 11:56] LABS: CREATININE FOR GFR 1.88 MG/DL (0.55-1.02); GLOMERULAR FILTRATION RATE 27.8 (>39); MAGNESIUM LEVEL 2.7 MG/DL (1.8-2.4); POTASSIUM SERUM 4.7 MEQ/L (3.5-5.1)
== END ==
PROVIDERS: ATTEND Internal Medicine
DX: I50.9 Heart failure, unspecified (principal)

== ENCOUNTER → 2017-08-29 | Outpatient (REF) | payer MEDICARE, MEDICAID ==
[2017-08-29 11:18] LABS: MEAN CORPUSCULAR HEMOGLOBIN 29.1 pg (27.0-33.0); MEAN CORPUSCULAR HGB CONC 32.1 g/dl (32.0-36.5); MEAN CORPUSCULAR VOLUME 90.6 fl (80.0-96.0); RED CELL DISTRIBUTION WIDTH 15.6 % (11.5-14.5); WHITE BLOOD COUNT 4.1 10^3/uL (4.0-10.0)
[2017-08-29 11:53] LABS: CALCIUM LEVEL 9.5 MG/DL (8.8-10.2); CREATININE FOR GFR 1.71 MG/DL (0.55-1.02); GLOMERULAR FILTRATION RATE 31.1 (>39); MAGNESIUM LEVEL 2.3 MG/DL (1.8-2.4)
== END ==
PROVIDERS: ATTEND Internal Medicine
DX: I50.32 Chronic diastolic (congestive) heart failure (principal); E11.9 Type 2 diabetes mellitus without complications

== ENCOUNTER 2017-09-07 06:32 | Observation (INO) | payer MEDICARE, MEDICAID ==
[~2017-09-07] VITALS: Ht 162.6 cm; Wt 108.5 kg
[~2017-09-07 06:32] MED LIST changes: -ACET650T3 PO; -BENPAD EXT; -BISA10SU4 PR; -DICY10CA13 PO; -ENEMENE16 PR; -HUMA100I5 SC; -LISI2.5T3 PO; -MAGN1TAB25 PO; -MILKSUS PO; -PRAV40TA2 PO; -VITMTA PO; -VOLT1GEL15 TD; -XARE15TA PO
[2017-09-07] MEDS ORDERED: MORPHINE 4 MG/ML 1ML SYRINGE IV PRN (06:45)
[2017-09-07] MEDS ORDERED: ONDANSETRON 4MG/2ML VIAL (J2405) IV ONE ×2 (06:45→11:00)
[2017-09-07] MEDS: NS 1,000 ML IV SCH ×2 (07:04→16:57)
[2017-09-07 07:12] LABS: BASO % 0.7 % (0.0-1.0); EOS % 0.5 % (0.0-3.0); IMMATURE GRANULOCYTE % 0.5 % (0-0); LYMPH # 0.7 10^3/uL (1.5-4.5); LYMPH % 12.4 % (24.0-44.0); MEAN CORPUSCULAR HEMOGLOBIN 29.3 pg (27.0-33.0); MEAN CORPUSCULAR HGB CONC 34.1 g/dl (32.0-36.5); MEAN CORPUSCULAR VOLUME 85.7 fl (80.0-96.0); MONO # 0.3 10^3/uL (0.0-0.8); NEUTROPHILS # 4.5 10^3/uL (1.8-7.7); NEUTROPHILS % 80.9 % (36.0-66.0); PLATELET COUNT, AUTOMATED 172 10^3/uL (150-450); RED CELL DISTRIBUTION WIDTH 15.2 % (11.5-14.5); WHITE BLOOD COUNT 5.6 10^3/uL (4.0-10.0)
[2017-09-07] MEDS ORDERED: BISOPROLOL FUMARATE 5 MG TAB PO ONE ×2 (07:15→08:00)
[2017-09-07 07:29] LABS: ALBUMIN 3.2 GM/DL (3.2-5.2); ALBUMIN/GLOBULIN RATIO 0.78 (1.00-1.93); ALKALINE PHOSPHATASE 151 U/L (45-117); ALT/SGPT 44 U/L (12-78); ANION GAP 8 MEQ/L (8-16); AST/SGOT 21 U/L (15-37); BILIRUBIN,DIRECT 0.2 MG/DL (0.0-0.2); BILIRUBIN,TOTAL 0.8 MG/DL (0.2-1.0); BLOOD UREA NITROGEN 45 MG/DL (7-18); CARBON DIOXIDE LEVEL 22 MEQ/L (21-32); CHLORIDE LEVEL 106 MEQ/L (98-107); CREATININE FOR GFR 1.58 MG/DL (0.55-1.02); GLUCOSE, FASTING 196 MG/DL (83-110); SODIUM LEVEL 136 MEQ/L (136-145); TOTAL PROTEIN 7.3 GM/DL (6.4-8.2)
--- NOTE | 2017-09-07 08:19 | REP ---
Abdominal series: Five views. History: Abdominal pain. Comparison study: June 21, 2017. Findings: EKG monitoring electrodes overlie the chest. Heart is mildly enlarged. This is unchanged from comparison chest x-ray January 18, 2017. No free subdiaphragmatic air or infiltrate is seen. Supine and erect views of the abdomen demonstrate a normal bowel gas pattern with air and stool in a nondistended colon. No obstructive pattern is seen. There are calcific densities projecting over the kidneys bilaterally. The largest of these measures 1.5 cm and this projects over the lower pole of the left kidney. These are unchanged from an older abdominal lumbar spine series January 17, 2017. Vascular calcification is noted. There are degenerative changes in the lumbar spine. Psoas margins are symmetric. There is also a larger peripherally calcified lesion in the right upper quadrant anteriorly 4.2 cm in diameter. This is unchanged as well from the comparison radiographs and is compatible with a biliary calcification. Impression: Bilateral intrarenal nephrolithiasis. Probable large biliary calcification also noted unchanged. Normal bowel gas pattern. Signed by Chi Kirby MD 09/07/2017 11:56 A
--- NOTE | 2017-09-07 08:44 | REP ---
CT abdomen and pelvis without IV or oral contrast: Renal stone protocol. History: Vomiting. Comparison CT study January 17, 2017. Findings: Preliminary digital delivery engineer radiograph demonstrates an unremarkable bowel gas pattern. The lung bases show no evidence of infiltrate or pleural effusion. There is a small pericardial effusion which is less prominent than on the January 17, 2017 study. The large calcification projecting radiographically in the right upper quadrant is seen to be one of two large areas of fat necrosis in the subcutaneous fat of the right flank posterolaterally and anterolaterally. No biliary calculus is seen. Vascular calcifications noted bilaterally. No focal liver lesion is seen. No adrenal lesion is observed. Pancreas is unremarkable. There are multiple intrarenal calculi bilaterally. The largest on the right is an upper pole calculus measuring 6 mm in greatest diameter. This is unchanged. There is a 5 mm calculus in the lower pole on the right. No hydronephrosis is seen. In the left kidney lower pole there is a large calculus again seen measuring 16 mm. No left-sided hydronephrosis is seen. No ureteral calculus is observed on either side. No mass or adenopathy is seen. No uterine or ovarian abnormality is observed. There is skin and subcutaneous fat edema along the anterior abdominal wall which may reflect cellulitis or dermatitis. No abnormal fluid collection is seen. No abdominal wall defect is observed. There is mild left colonic diverticulosis without CT evidence of diverticulitis. No bony destructive lesion is seen. Impression: Bilateral intrarenal nephrolithiasis without hydronephrosis. Left colonic diverticulosis. Dermatitis/cellulitis pattern in the anterior abdominal wall. Areas of old fat necrosis in the right flank. Small pericardial effusion improved from January 17, 2017. Signed by Chi Kirby MD 09/07/2017 11:57 A
[2017-09-07] MEDS ORDERED: LevoFLOXacin IV 750 MG in APPROPRIATE DILUENT 1 EA IV ONE (09:45)
[2017-09-07] MEDS ORDERED: SODIUM CHLORIDE 0.9% 1000 ML IV ONE ×2 (09:45→22:00)
[2017-09-07] MEDS ORDERED: MAGN1TAB25 PO (10:16)
[2017-09-07] MEDS ORDERED: FURO40TA2 PO (10:16)
[2017-09-07] MEDS ORDERED: ACET650T3 PO (10:16)
[2017-09-07] MEDS ORDERED: BENPAD EXT (10:16)
[2017-09-07] MEDS ORDERED: VOLT1GEL15 TD (10:16)
[2017-09-07] MEDS ORDERED: XARE15TA PO (10:16)
[2017-09-07] MEDS ORDERED: INSUDET SC ×2 (10:16)
[2017-09-07] MEDS ORDERED: HUMA100I5 SC ×2 (10:16)
[2017-09-07] MEDS ORDERED: DICY10CA13 PO (10:16)
[2017-09-07] MEDS ORDERED: VITMTA PO (10:20)
[2017-09-07] MEDS ORDERED: GLUC1KIT SC (10:20)
[2017-09-07] MEDS ORDERED: BISO5TAB5 PO (10:20)
[2017-09-07] MEDS ORDERED: LISI2.5T3 PO (10:20)
[2017-09-07] MEDS ORDERED: PRAV40TA2 PO (10:20)
[2017-09-07] MEDS ORDERED: NITR4TASL SL (10:20)
[2017-09-07] MEDS ORDERED: MILKSUS PO (10:20)
[2017-09-07] MEDS ORDERED: ENEMENE16 PR (10:20)
[2017-09-07] MEDS ORDERED: BISA10SU4 PR (10:20)
[2017-09-07] MEDS ORDERED: NS 1,000 ML IV SCH (12:37)
[2017-09-07] MEDS ORDERED: GLUCOSE 4 GM CHEW TABLET PO PRN (12:45)
[2017-09-07] MEDS ORDERED: DEXTROSE 50% 50 ML SYRINGE IV PRN (12:45)
[2017-09-07] MEDS ORDERED: ACETAMINOPHEN TAB 650MG DOSE (2X325MG) PO PRN (12:45)
[2017-09-07] MEDS ORDERED: GLUCAGON FOR INJ 1 MG VIAL (J1610) SC PRN (12:45)
[2017-09-07] MEDS ORDERED: ANEXSIA, NORCO 7.5MG/325MG TABLET(HYDROCODONE/APAP) PO PRN (12:45)
[2017-09-07] MEDS ORDERED: ONDANSETRON 4MG/2ML VIAL (J2405) IV PRN (12:45)
--- NOTE | 2017-09-07 13:55 | HPE ---
DATE OF ADMISSION: 09/07/2017 This is a patient of Dr. Del Rosario at [facility]. Previously, a patient of Jann Sherman. CHIEF COMPLAINT: Is not feeling well. Following is a summary of her presentation: This is a patient who was in her normal state of wellbeing until last night. She developed generalized upper abdominal pain and nausea and vomiting. She vomited too many times to count. Pain advanced to her left flank. She describes no fever, no chills, no diarrhea but today found to develop dysuria and suprapubic fullness. She was somewhat short of breath with episodes of pain and felt better with the use of oxygen. She has a history of recurrent urinary tract infection. She has an allergy to KEFLEX. MEDICATIONS AT HOME: Include: - Tylenol - bisacodyl - Lasix - Glucagon - insulin long-acting and short-acting - milk of magnesia - sublingual nitroglycerin - Fleet enema - magnesium oxide - Bengay - voltaren gel - bisoprolol 5 mg by mouth twice a day - dicyclomine - lisinopril 2.5 mg by mouth each evening - multivitamin - pravastatin 40 mg by mouth daily - Xarelto 15 mg by mouth each evening PAST MEDICAL HISTORY: Is notable for atrial fibrillation (AFib) on Xarelto and beta blockade, hypertension, chronic obstructive pulmonary disease (COPD), insulin-dependent diabetes, hyperlipidemia, chronic kidney disease, diastolic congestive heart failure. SURGICAL HISTORY: Is notable for atrial flutter ablation, incision and drainage (I and D) in the shoulders, recurrent urinary tract infections usually of Klebsiella pneumoniae. Socially, she is a resident of [facility]. She has been encouraged to switch to assisted living but has no interest in assisted living. She has a healthcare proxy and a medical orders for life-sustaining treatment (MOLST) form filled out and is a FULL CODE. REVIEW OF SYSTEMS: Is notable for no headache, no visual changes, no runny nose , no sore throat, no cough, no shortness of breath, no change in bowel or bladder habits although she has had suprapubic fullness and some difficulty urinating but still urinating at the same frequency, no nocturia was noted. She has a history of a left-sided kidney stone, for which she has been sent to [place] for possible nephrolithiasis. Otherwise, unremarkable. On physical examination, temperature 97.8, pulse 110, blood pressure 112/51, 95% on room air, weight is 108.5 kg. She is awake, appropriately interactive, and pleasantly conversant. A reasonably good historian. Alert and oriented times three. Sinuses are nontender. Pupils equal, round, reactive, anicteric, noninjected. Nasal septum is midline. Mucous membranes are moist. Neck is supple, thick. Breathing is symmetrical. I-to-E ratio is 1:3. Speaking in complete sentences. No accessory muscle use. Heart is distant sounding. Irregular rate and rhythm. Normal S1, S2. Is not bradycardic. Is not tachycardic. Radial pulses 2+. Capillary refill is less than 2 seconds. Abdomen: Is soft, nondistended. Hypoactive bowel sounds. Nontender to deep palpation. There is no costovertebral angle (CVA) tenderness There is trace bilateral lower extremity edema. She is moving all four extremities. She has normal mood and affect. White cell count is 5.6, hemoglobin 15.4, and platelets of 172. BUN is 45, creatinine 1.58 which is likely not far from her baseline, lactic acid is 2.7, repeat is pending. My assessment is as follows: This is a 72-year-old with recurrent urinary tract infection with no evidence of urinary obstruction. The plan is as follows: 1. Infectious disease. The patient is started on appropriate broad-spectrum antibiotics for possible urinary tract infection. This will be given intravenously. She has been having nausea and vomiting, which appears to be improving. Will await culture results. She has previously had Klebsiella. There is no evidence that this is pyelonephritis on physical examination. She does not appear incredibly ill, although I guess it could be an early pyelonephritis. Lactic acid is somewhat elevated, likely related to her aggressive vomiting. 2. The patient has atrial fibrillation. Rate is currently controlled. Will continue her beta blockade. Continue Xarelto and monitor her clinically. 3. The patient has type 2 diabetes, on insulin. We will allow her to have diet. If she does not take diet, she may need IV fluids with some dextrose to prevent hypoglycemia. At this point, it appears as though she will be able to take a diet, though. 4. The patient has hypertensive heart disease in the setting of chronic kidney disease and diastolic dysfunction, which would appear to be compensated. 5. The patient has morbid obesity, which complicates care. 6. Deep venous thrombosis (DVT) prophylaxis is Lovenox. The patient has a healthcare proxy and is FULL CODE. SHANNAN
[2017-09-07 16:00] VITALS: BP 104/73
[2017-09-07] MEDS: HumaLOG INSULIN (NovoLOG) PER UNIT SC SCH (16:57)
[2017-09-07 18:00] VITALS: BP 133/58
[2017-09-07] MEDS: BISOPROLOL FUMARATE 5 MG TAB PO SCH (20:48)
[2017-09-07] MEDS ORDERED: LISINOPRIL *2.5 MG* TAB PO SCH (21:00)
[2017-09-07] MEDS ORDERED: LEVEMIR (INSULIN DETEMIR) 1 UNITS/0.01ML SC SCH (21:00)
[2017-09-07] MEDS ORDERED: RIVAROXABAN 15 MG TAB (XARELTO) PO SCH (21:00)
[2017-09-07] MEDS ORDERED: HumaLOG INSULIN (NovoLOG) PER UNIT SC SCH (21:00)
[2017-09-07] MEDS: DICYCLOMINE 10 MG CAP PO SCH (21:19)
[2017-09-07 22:00] VITALS: BP 94/58
[2017-09-07 23:30] VITALS: BP 82/42
[2017-09-08 00:30] VITALS: BP 88/50
[2017-09-08] MEDS ORDERED: SODIUM CHLORIDE 0.9% 1000 ML IV ONE (00:45)
[2017-09-08] MEDS: NS 1,000 ML IV SCH (02:10)
[2017-09-08 06:00] VITALS: BP 128/63
[2017-09-08 06:50] LABS: MEAN CORPUSCULAR HEMOGLOBIN 29.1 pg (27.0-33.0); MEAN CORPUSCULAR HGB CONC 32.2 g/dl (32.0-36.5); MEAN CORPUSCULAR VOLUME 90.4 fl (80.0-96.0); RED CELL DISTRIBUTION WIDTH 15.6 % (11.5-14.5); WHITE BLOOD COUNT 6.6 10^3/uL (4.0-10.0)
[2017-09-08 07:07] LABS: CALCIUM LEVEL 9.5 MG/DL (8.8-10.2); CREATININE FOR GFR 1.58 MG/DL (0.55-1.02); POTASSIUM SERUM 4.1 MEQ/L (3.5-5.1)
--- NOTE | 2017-09-08 07:37 | ECGEPIP ---
Stationary ECG Study [facility] - ED Test Date: 2017-09-07 Pat Name: EDDIE WIGGINS Department: Room: - Gender: F Dispersion Mixer: HARSH : [id number] Requested By: Eliseo Hernandez Order Number: [id number] Reading MD: Li Anrdes Measurements Intervals [place] Rate: 127 P: [place]: 0 QRS: 137 QRSD: 135 T: -13 QT: 344 QTc: 501 Interpretive Statements ATRIAL FIBRILLATION WITH RAPID VENTRICULAR RESPONSE MARKED RIGHT AXIS DEVIATION RIGHT BUNDLE BRANCH BLOCK DECREASED RATE 01/18/17 Electronically Signed On 09-08-2017 7:36:59 EDT by Li Andres
[2017-09-08 08:53] VITALS: BP 126/90
[2017-09-08] MEDS: BISOPROLOL FUMARATE 5 MG TAB PO SCH (08:53)
[2017-09-08] MEDS: HumaLOG INSULIN (NovoLOG) PER UNIT SC SCH (08:56)
[2017-09-08] MEDS: DICYCLOMINE 10 MG CAP PO SCH (08:59)
[2017-09-08] MEDS ORDERED: NYSTATIN 100,000 UNITS/GM TOPICAL PWD 15 GM TOP SCH (09:00)
[2017-09-08] MEDS ORDERED: MULTIVITAMINS/MINERALS THERAP 1 TAB PO SCH (09:00)
[2017-09-08] MEDS ORDERED: LEVEMIR (INSULIN DETEMIR) 1 UNITS/0.01ML SC SCH (09:00)
[2017-09-08] MEDS ORDERED: PRAVASTATIN 20 MG TAB PO SCH (09:00)
[2017-09-08] MEDS ORDERED: LevoFLOXacin IV 250 MG in APPROPRIATE DILUENT 1 EA IV SCH (10:00)
[2017-09-08] MEDS ORDERED: LEVA1TAB2 PO (10:27)
--- NOTE | 2017-09-08 13:25 | IPN ---
DATE: 09/08/2017 The patient is feeling much better today. She is awake, appropriately interactive. Feels to be back to her baseline. Tolerating a diet. No complaints of pain, chest pain, shortness of breath. Temperature is 97.8, pulse 79, respiratory rate 19, blood pressure 128/63, 98% on room air. Input and output notable for a positive fluid balance of 20. She has had 650 of urine out yesterday and 1150 thus far today. Body Mass Index (BMI) 41.1. She is awake, appropriately interactive, pleasantly conversant. Mucous membranes are moist. Neck is supple. Breathing is symmetrical and rested. I:E ratio is 1:3. No wheezes, rales or rhonchi. Heart is distant sounding. Regular rate and rhythm. Abdomen is distended, soft, nontender. There is no costovertebral angle tenderness. There is no suprapubic tenderness. White cell count 6.6, hemoglobin 12.7, platelets 151. BUN 52, creatinine 1.58, lactic acid is 1.4, blood culture negative after 24 hours. Urine culture is pending. ASSESSMENT: This is a 72-year-old with urinary tract infection (UTI). PLAN: 1. Infectious disease. The patient has been previously treated for urinary tract infections. Has previously grown Klebsiella and is improved on the current antibiotic regimen. She will be discharged today with a 7-day course of antibiotics. Lactic acid was elevated at the time of presentation. She is much improved at this point. 2. The patient has atrial fibrillation. Rate is controlled. Continuing beta blockade. 3. The patient has type 2 diabetes on insulin. 4. The patient has hypertensive heart disease in the setting of chronic kidney disease, diastolic dysfunction, which appears to be compensated. 5. The patient has had some hypotension, which is resolved with the use of fluid. She is having an excellent urinary output and appears to be back to her baseline. 6. The patient will be discharged to [facility] today.
== END 2017-09-08 12:33 ==
LOC: M ED 06:32 → EDBD 06:32 → M ED INP 12:37 → M MSPAV 17:26
PROVIDERS: ADMIT Internal Medicine; ATTEND Internal Medicine
DX: N39.0 Urinary tract infection, site not specified (principal); I48.91 Unspecified atrial fibrillation; Z79.899 Other long term (current) drug therapy; E11.9 Type 2 diabetes mellitus without complications; Z79.4 Long term (current) use of insulin; I11.9 Hypertensive heart disease without heart failure; Z79.02 Long term (current) use of antithrombotics/antiplatelets; J44.9 Chronic obstructive pulmonary disease, unspecified; E66.01 Morbid (severe) obesity due to excess calories
CPT/HCPCS: 36415; 51701; 74022; 74176; 80048; 80076; 81001; 82550; 82553; 83605; 83690; 84484; 85025; 85027; 87040; 87088; 87186; 93005; 93041; 96365; 96375; 96376; 99285; G0378; J1956; J2405

== ENCOUNTER → 2017-09-13 | Outpatient (REF) | payer MEDICARE, MEDICAID ==
[~2017-09-13] MED LIST changes: +ACET650T3 PO; +BENPAD EXT; +BISA10SU4 PR; +DICY10CA13 PO; +ENEMENE16 PR; +HUMA100I5 SC; +LISI2.5T3 PO; +MAGN1TAB25 PO; +MILKSUS PO; +PRAV40TA2 PO; +VITMTA PO; +VOLT1GEL15 TD; +XARE15TA PO
[2017-09-13 10:41] LABS: MEAN CORPUSCULAR HEMOGLOBIN 29.5 pg (27.0-33.0); MEAN CORPUSCULAR HGB CONC 32.7 g/dl (32.0-36.5); MEAN CORPUSCULAR VOLUME 90.4 fl (80.0-96.0); RED CELL DISTRIBUTION WIDTH 15.3 % (11.5-14.5); WHITE BLOOD COUNT 4.4 10^3/uL (4.0-10.0)
[2017-09-13 11:08] LABS: ALBUMIN 2.7 GM/DL (3.2-5.2); ALBUMIN/GLOBULIN RATIO 0.9 (1.00-1.93); BILIRUBIN,TOTAL 0.4 MG/DL (0.2-1.0); CALCIUM LEVEL 9.3 MG/DL (8.8-10.2); CREATININE FOR GFR 1.47 MG/DL (0.55-1.02); MAGNESIUM LEVEL 2.2 MG/DL (1.8-2.4); POTASSIUM SERUM 4.5 MEQ/L (3.5-5.1); TOTAL PROTEIN 5.7 GM/DL (6.4-8.2)
== END ==
PROVIDERS: ATTEND Internal Medicine
DX: E11.9 Type 2 diabetes mellitus without complications (principal)

== ENCOUNTER → 2017-11-29 | Outpatient (REF) | payer MEDICARE, MEDICAID ==
[2017-11-29 11:16] LABS: ESTIMATED AVERAGE GLUCOSE 163 MG/DL (60-110); HEMOGLOBIN A1c 7.3 %
== END ==
DX: E11.9 Type 2 diabetes mellitus without complications (principal)
CPT/HCPCS: 83036

== ENCOUNTER → 2018-01-04 | Outpatient (REF) | payer MEDICARE, MEDICAID ==
[2018-01-04 12:57] LABS: HEMATOCRIT 41.5 % (36.0-47.0); HEMOGLOBIN 13.6 g/dl (12.0-16.0); MEAN CORPUSCULAR HEMOGLOBIN 29.6 pg (27.0-33.0); MEAN CORPUSCULAR HGB CONC 32.8 g/dl (32.0-36.5); MEAN CORPUSCULAR VOLUME 90.4 fl (80.0-96.0); PLATELET COUNT, AUTOMATED 122 10^3/uL (150-450); RED BLOOD COUNT 4.59 10^6/uL (4.00-5.40); WHITE BLOOD COUNT 2.7 10^3/uL (4.0-10.0)
[2018-01-04 13:22] LABS: ANION GAP 8 MEQ/L (8-16); BLOOD UREA NITROGEN 34 MG/DL (7-18); CALCIUM LEVEL 9.2 MG/DL (8.8-10.2); CARBON DIOXIDE LEVEL 23 MEQ/L (21-32); CHLORIDE LEVEL 106 MEQ/L (98-107); CREATININE FOR GFR 1.54 MG/DL (0.55-1.30); GLOMERULAR FILTRATION RATE 35.1 (>39); GLUCOSE, FASTING 315 MG/DL (70-100); POTASSIUM SERUM 4.9 MEQ/L (3.5-5.1); SODIUM LEVEL 137 MEQ/L (136-145)
== END ==
DX: R19.7 Diarrhea, unspecified (principal)
CPT/HCPCS: 80048

== ENCOUNTER 2018-01-05 13:59 | Inpatient (IN) | payer MEDICARE, MEDICAID ==
[2018-01-05] MEDS: LEVEMIR (INSULIN DETEMIR) 1 UNITS/0.01ML SC (00:29)
[2018-01-05 14:43] LABS: BASO % 1.2 % (0.0-1.0); EOS % 0.6 % (0.0-3.0); HEMATOCRIT 42.5 % (36.0-47.0); HEMOGLOBIN 14.2 g/dl (12.0-16.0); IMMATURE GRANULOCYTE % 0.3 % (0-3.0); LYMPH # 0.6 10^3/uL (1.5-4.5); LYMPH % 17.1 % (24.0-44.0); MEAN CORPUSCULAR HEMOGLOBIN 30.1 pg (27.0-33.0); MEAN CORPUSCULAR HGB CONC 33.4 g/dl (32.0-36.5); MEAN CORPUSCULAR VOLUME 90.2 fl (80.0-96.0); MONO # 0.5 10^3/uL (0.0-0.8); MONO % 13.8 % (0.0-5.0); NEUTROPHILS # 2.2 10^3/uL (1.8-7.7); PLATELET COUNT, AUTOMATED 119 10^3/uL (150-450); RED BLOOD COUNT 4.71 10^6/uL (4.00-5.40); RED CELL DISTRIBUTION WIDTH 14.9 % (11.5-14.5); WHITE BLOOD COUNT 3.3 10^3/uL (4.0-10.0)
[2018-01-05 14:48] LABS: D-DIMER QUANT 484.6 ng/ml (<500)
[2018-01-05 14:52] LABS: KETONE, URINE AUTO RFX NEGATIVE (NEGATIVE); NITRITE, URINE AUTO RFX NEGATIVE (NEGATIVE); RBC, URINE AUTO RFX 2 /HPF (0-3); SPECIFIC GRAVITY UR AUTO RFX 1.005 (1.002-1.035); SQUAM EPITHELIAL CELL UR AURFX 0 /HPF (0-6)
[2018-01-05 14:54] LABS: LACTIC ACID SEPSIS PROTOCOL 1.7 MMOL/L (0.4-2.0)
[2018-01-05 14:55] LABS: ANION GAP 7 MEQ/L (8-16); BLOOD UREA NITROGEN 34 MG/DL (7-18); C REACTIVE PROTEIN QUANTITATIV 4.05 MG/DL (0.00-0.30); CALCIUM LEVEL 9.7 MG/DL (8.8-10.2); CARBON DIOXIDE LEVEL 24 MEQ/L (21-32); CHLORIDE LEVEL 103 MEQ/L (98-107); CK-MB VALUE MASS 1.5 NG/ML (0.0-3.6); CPK CREATINE PHOSPHOKINASE 78 U/L (26-192); CREATININE FOR GFR 1.57 MG/DL (0.55-1.30); GLOMERULAR FILTRATION RATE 34.3 (>39); GLUCOSE, FASTING 260 MG/DL (70-100); MB/CK RELATIVE INDEX 1.92 (< OR =4); POTASSIUM SERUM 4.1 MEQ/L (3.5-5.1); SODIUM LEVEL 134 MEQ/L (136-145); TROPONIN I < 0.02 NG/ML (< 0.10)
[2018-01-05 14:59] LABS: LEUKOCYTE ESTERASE UR AUTO RFX 3+ (NEGATIVE); WBC, URINE AUTO RFX 40 /HPF (0-3)
[2018-01-05] MEDS: NS 500 ML IV (15:19)
[2018-01-05] MEDS: ACETAMINOPHEN 325 MG TAB PO (15:20)
[2018-01-05 15:22] LABS: ERYTHROCYTE SEDIMENTATION RATE 14 mm/hr (0-30)
[2018-01-05] MEDS: ALBUTEROL SULFATE 2.5 MG/0.5 ML INH NEB SOLN NEB (15:39)
[2018-01-05] MEDS: NS 1,000 ML IV (16:37)
[2018-01-05] MEDS ORDERED: GLUCAGON FOR INJ 1 MG VIAL (J1610) SC (18:30)
[2018-01-05] MEDS ORDERED: FLEET ENEMA PR (18:30)
[2018-01-05] MEDS ORDERED: NITROGLYCERIN 0.4 MG SUBL TABLET SL (18:30)
[2018-01-05] MEDS ORDERED: LOPERAMIDE 2 MG CAP PO ×2 (18:30)
[2018-01-05] MEDS: ACETAMINOPHEN TAB 650MG DOSE (2X325MG) PO (19:13)
[2018-01-05] MEDS: predniSONE 20 MG TAB PO (19:13)
[2018-01-05] MEDS ORDERED: IPRATROPIUM 0.5MG/ALBUTEROL 2.5MG INH SOL UD 3ML (DUONEB)(J7620) NEB (19:15)
[2018-01-05] MEDS: LEVALBUTEROL 1.25 MG/0.5 ML CONCENTRATE NEB INH (20:00)
[2018-01-05] MEDS: IPRATROPIUM 0.5MG/ALBUTEROL 2.5MG INH SOL UD 3ML (DUONEB)(J7620) NEB (20:43)
[2018-01-05] MEDS ORDERED: HumaLOG INSULIN (NovoLOG) PER UNIT SC (21:00)
[2018-01-05] MEDS ORDERED: LEVEMIR (INSULIN DETEMIR) 1 UNITS/0.01ML SC (21:00)
[2018-01-05] MEDS: methylPREDNISolone INJ 125 MG/2 ML VIAL (J2930) IV (23:25)
[2018-01-05] MEDS: MAGNESIUM OXIDE 400 MG TAB (MAG-OX) PO (23:25)
[2018-01-05] MEDS: guaiFENesin SYRUP 200 MG/10 ML UDC PO (23:25)
[2018-01-05] MEDS: BENZONATATE 100 MG CAP PO (23:26)
[2018-01-05] MEDS: LISINOPRIL *2.5 MG* TAB PO (23:26)
[2018-01-05] MEDS: RIVAROXABAN 15 MG TAB (XARELTO) PO (23:27)
[2018-01-05] MEDS: BISOPROLOL FUMARATE 5 MG TAB PO (23:28)
[2018-01-06] MEDS: ACETAMINOPHEN 650MG ER TAB (TYLENOL ARTHRITIS) PO ×4 (00:28→21:49)
[2018-01-06] MEDS: DICYCLOMINE 10 MG CAP PO ×3 (00:28→21:49)
[2018-01-06] MEDS ORDERED: GLUCOSE 4 GM CHEW TABLET PO (00:30)
[2018-01-06] MEDS: FLUTICASONE PROP 0.05% NASAL SPRAY 16 GM (FLONASE) ×2 (00:30→21:00)
[2018-01-06] MEDS: EUCERIN 120GM CREAM TOP (00:30)
[2018-01-06] MEDS ORDERED: DEXTROSE 50% 50 ML SYRINGE IV (00:30)
[2018-01-06] MEDS ORDERED: GLUCAGON FOR INJ 1 MG VIAL (J1610) SC (00:30)
[2018-01-06] MEDS: IPRATROPIUM 0.5MG/ALBUTEROL 2.5MG INH SOL UD 3ML (DUONEB)(J7620) NEB ×4 (02:00→19:48)
[2018-01-06] MEDS: NS 1,000 ML IV ×2 (03:35→11:42)
[2018-01-06 05:27] LABS: HEMATOCRIT 42.5 % (36.0-47.0); HEMOGLOBIN 13.7 g/dl (12.0-16.0); MEAN CORPUSCULAR HEMOGLOBIN 29.7 pg (27.0-33.0); MEAN CORPUSCULAR HGB CONC 32.2 g/dl (32.0-36.5); PLATELET COUNT, AUTOMATED 102 10^3/uL (150-450); RED BLOOD COUNT 4.62 10^6/uL (4.00-5.40); RED CELL DISTRIBUTION WIDTH 14.9 % (11.5-14.5); WHITE BLOOD COUNT 2.6 10^3/uL (4.0-10.0)
[2018-01-06 05:40] LABS: ANION GAP 8 MEQ/L (8-16); BLOOD UREA NITROGEN 40 MG/DL (7-18); C REACTIVE PROTEIN QUANTITATIV 5.97 MG/DL (0.00-0.30); CALCIUM LEVEL 8.8 MG/DL (8.8-10.2); CARBON DIOXIDE LEVEL 20 MEQ/L (21-32); CHLORIDE LEVEL 108 MEQ/L (98-107); GLOMERULAR FILTRATION RATE 33.5 (>39); GLUCOSE, FASTING 379 MG/DL (70-100); POTASSIUM SERUM 4.9 MEQ/L (3.5-5.1); SODIUM LEVEL 136 MEQ/L (136-145)
[2018-01-06] MEDS ORDERED: HumaLOG INSULIN (NovoLOG) PER UNIT SC ×2 (07:30→12:00)
[2018-01-06] MEDS: PRAVASTATIN 20 MG TAB PO (08:28)
[2018-01-06] MEDS: MAGNESIUM OXIDE 400 MG TAB (MAG-OX) PO ×2 (08:29→21:48)
[2018-01-06] MEDS: BENZONATATE 100 MG CAP PO ×2 (08:29→21:48)
[2018-01-06] MEDS: BISOPROLOL FUMARATE 5 MG TAB PO ×2 (08:29→15:45)
[2018-01-06] MEDS: methylPREDNISolone INJ 125 MG/2 ML VIAL (J2930) IV ×2 (08:30→20:53)
[2018-01-06] MEDS: guaiFENesin SYRUP 200 MG/10 ML UDC PO ×3 (08:30→21:00)
[2018-01-06] MEDS: LEVEMIR (INSULIN DETEMIR) 1 UNITS/0.01ML SC ×2 (08:32→22:55)
[2018-01-06] MEDS: HumaLOG INSULIN (NovoLOG) PER UNIT SC ×4 (08:32→22:54)
[2018-01-06] MEDS ORDERED: predniSONE 20 MG TAB PO (09:00)
[2018-01-06] MEDS ORDERED: LEVEMIR (INSULIN DETEMIR) 1 UNITS/0.01ML SC (09:00)
[2018-01-06] MEDS: LevoFLOXacin IV 500 MG in APPROPRIATE DILUENT 1 EA IV (09:08)
[2018-01-06 13:50] LABS: CK-MB VALUE MASS 4.4 NG/ML (0.0-3.6); CPK CREATINE PHOSPHOKINASE 93 U/L (26-192); MB/CK RELATIVE INDEX 4.73 (< OR =4); TROPONIN I < 0.02 NG/ML (< 0.10)
[2018-01-06] MEDS: DIGOXIN 0.125 MG TAB PO (15:45)
[2018-01-06 16:26] LABS: BEDSIDE GLUCOSE 139 MG/DL (83-110)
[2018-01-06 16:26] LABS: BEDSIDE GLUCOSE 453 MG/DL (83-110)
[2018-01-06 17:09] LABS: NT-PRO BNP 5102 PG/ML (<125)
[2018-01-06 17:14] LABS: BEDSIDE GLUCOSE CONFIRMATION 621 MG/DL (LESS THAN 200)
[2018-01-06] MEDS: FUROSEMIDE 40 MG/4 ML VIAL (J1940) IV (17:45)
[2018-01-06] MEDS: BISOPROLOL FUMARATE 10 MG TAB PO (18:56)
[2018-01-06 21:46] LABS: CK-MB VALUE MASS 4.9 NG/ML (0.0-3.6); CPK CREATINE PHOSPHOKINASE 82 U/L (26-192); MB/CK RELATIVE INDEX 5.97 (< OR =4); TROPONIN I 0.09 NG/ML (< 0.10)
[2018-01-06] MEDS: LISINOPRIL *2.5 MG* TAB PO (21:48)
[2018-01-06] MEDS: RIVAROXABAN 15 MG TAB (XARELTO) PO (21:49)
[2018-01-06 22:08] LABS: BEDSIDE GLUCOSE CONFIRMATION 686 MG/DL (LESS THAN 200)
[2018-01-06 22:45] LABS: ANION GAP 13 MEQ/L (8-16); BLOOD UREA NITROGEN 58 MG/DL (7-18); CARBON DIOXIDE LEVEL 17 MEQ/L (21-32); CHLORIDE LEVEL 101 MEQ/L (98-107); CREATININE FOR GFR 1.88 MG/DL (0.55-1.30); GLOMERULAR FILTRATION RATE 27.8 (>39); POTASSIUM SERUM 4.7 MEQ/L (3.5-5.1); SODIUM LEVEL 131 MEQ/L (136-145)
[2018-01-07 00:50] LABS: BEDSIDE GLUCOSE 564 MG/DL (83-110)
[2018-01-07 01:39] LABS: BEDSIDE GLUCOSE CONFIRMATION 673 MG/DL (LESS THAN 200)
[2018-01-07] MEDS: IPRATROPIUM 0.5MG/ALBUTEROL 2.5MG INH SOL UD 3ML (DUONEB)(J7620) NEB ×4 (02:00→19:54)
[2018-01-07] MEDS: HumuLIN R (REGULAR) INSULIN (NovoLIN R) **100U/ML** PER UNIT IV ×2 (02:13→05:37)
[2018-01-07 04:31] LABS: HEMATOCRIT 41.3 % (36.0-47.0); HEMOGLOBIN 13.6 g/dl (12.0-16.0); MEAN CORPUSCULAR HEMOGLOBIN 29.8 pg (27.0-33.0); MEAN CORPUSCULAR HGB CONC 32.9 g/dl (32.0-36.5); MEAN CORPUSCULAR VOLUME 90.6 fl (80.0-96.0); PLATELET COUNT, AUTOMATED 113 10^3/uL (150-450); RED BLOOD COUNT 4.56 10^6/uL (4.00-5.40); RED CELL DISTRIBUTION WIDTH 14.7 % (11.5-14.5); WHITE BLOOD COUNT 8.7 10^3/uL (4.0-10.0)
[2018-01-07 04:50] LABS: ANION GAP 10 MEQ/L (8-16); BLOOD UREA NITROGEN 63 MG/DL (7-18); CALCIUM LEVEL 8.6 MG/DL (8.8-10.2); CARBON DIOXIDE LEVEL 20 MEQ/L (21-32); CHLORIDE LEVEL 103 MEQ/L (98-107); CPK CREATINE PHOSPHOKINASE 75 U/L (26-192); CREATININE FOR GFR 1.89 MG/DL (0.55-1.30); GLOMERULAR FILTRATION RATE 27.7 (>39); POTASSIUM SERUM 4.3 MEQ/L (3.5-5.1); SODIUM LEVEL 133 MEQ/L (136-145)
[2018-01-07 04:51] LABS: CK-MB VALUE MASS 5.5 NG/ML (0.0-3.6); MB/CK RELATIVE INDEX 7.33 (< OR =4)
[2018-01-07 05:04] LABS: BEDSIDE GLUCOSE 525 MG/DL (83-110)
[2018-01-07 05:12] LABS: GLUCOSE, FASTING 584 MG/DL (70-100)
[2018-01-07] MEDS: ACETAMINOPHEN 650MG ER TAB (TYLENOL ARTHRITIS) PO ×3 (05:36→21:18)
[2018-01-07 07:22] LABS: BEDSIDE GLUCOSE 517 MG/DL (83-110)
[2018-01-07] MEDS ORDERED: HumaLOG INSULIN (NovoLOG) PER UNIT SC ×2 (07:30→11:00)
[2018-01-07] MEDS: HumaLOG INSULIN (NovoLOG) PER UNIT SC ×4 (07:53→12:34)
[2018-01-07] MEDS: BENZONATATE 100 MG CAP PO ×2 (07:54→21:17)
[2018-01-07] MEDS: PRAVASTATIN 20 MG TAB PO (07:54)
[2018-01-07] MEDS: BISOPROLOL FUMARATE 10 MG TAB PO ×2 (07:54→21:26)
[2018-01-07] MEDS: guaiFENesin SYRUP 200 MG/10 ML UDC PO ×4 (07:55→21:18)
[2018-01-07] MEDS: DICYCLOMINE 10 MG CAP PO ×2 (07:55→21:17)
[2018-01-07] MEDS: MAGNESIUM OXIDE 400 MG TAB (MAG-OX) PO ×2 (07:55→21:17)
[2018-01-07] MEDS: LEVEMIR (INSULIN DETEMIR) 1 UNITS/0.01ML SC ×4 (08:00→13:42)
[2018-01-07] MEDS: EUCERIN 120GM CREAM TOP (09:58)
[2018-01-07] MEDS: predniSONE 10 MG TAB PO (09:58)
[2018-01-07] MEDS: LevoFLOXacin IV 250 MG in APPROPRIATE DILUENT 1 EA IV (10:15)
[2018-01-07 10:23] LABS: BEDSIDE GLUCOSE > 600 MG/DL (83-110)
[2018-01-07 10:23] LABS: BEDSIDE GLUCOSE > 600 MG/DL (83-110)
[2018-01-07 11:42] LABS: BEDSIDE GLUCOSE 597 MG/DL (83-110)
[2018-01-07 12:54] LABS: CPK CREATINE PHOSPHOKINASE 72 U/L (26-192); TROPONIN I 0.38 NG/ML (< 0.10)
[2018-01-07 12:55] LABS: MB/CK RELATIVE INDEX 6.94 (< OR =4)
[2018-01-07 13:05] LABS: BEDSIDE GLUCOSE CONFIRMATION 624 MG/DL (LESS THAN 200)
[2018-01-07] MEDS: METOPROLOL 5 MG/5 ML VIAL IV (14:23)
[2018-01-07] MEDS: DIGOXIN INJ 0.5 MG/2 ML AMP (J1160) IV (14:55)
[2018-01-07] MEDS: INSULIN HUMAN REGULAR 100 UNITS in NS 99 ML IV (15:44)
[2018-01-07] MEDS: INSULIN IV RATE CHANGE DOCUMENTATION ML/HR XX ×5 (16:15→23:13)
[2018-01-07 18:12] LABS: BEDSIDE GLUCOSE 515 MG/DL (83-110)
[2018-01-07 19:10] LABS: BEDSIDE GLUCOSE 430 MG/DL (83-110)
[2018-01-07 19:36] LABS: HEMATOCRIT 40.8 % (36.0-47.0); HEMOGLOBIN 13.5 g/dl (12.0-16.0); MEAN CORPUSCULAR HEMOGLOBIN 30.1 pg (27.0-33.0); MEAN CORPUSCULAR HGB CONC 33.1 g/dl (32.0-36.5); MEAN CORPUSCULAR VOLUME 90.9 fl (80.0-96.0); PLATELET COUNT, AUTOMATED 141 10^3/uL (150-450); RED BLOOD COUNT 4.49 10^6/uL (4.00-5.40); RED CELL DISTRIBUTION WIDTH 14.8 % (11.5-14.5); WHITE BLOOD COUNT 9.9 10^3/uL (4.0-10.0)
[2018-01-07] MEDS: NS 1,000 ML IV (19:42)
[2018-01-07 19:49] LABS: ANION GAP 9 MEQ/L (8-16); BLOOD UREA NITROGEN 66 MG/DL (7-18); CALCIUM LEVEL 9.2 MG/DL (8.8-10.2); CARBON DIOXIDE LEVEL 20 MEQ/L (21-32); CHLORIDE LEVEL 110 MEQ/L (98-107); CK-MB VALUE MASS 3.7 NG/ML (0.0-3.6); CPK CREATINE PHOSPHOKINASE 53 U/L (26-192); GLOMERULAR FILTRATION RATE 27.5 (>39); MAGNESIUM LEVEL 2.1 MG/DL (1.8-2.4); MB/CK RELATIVE INDEX 6.98 (< OR =4); POTASSIUM SERUM 3.6 MEQ/L (3.5-5.1); SODIUM LEVEL 139 MEQ/L (136-145); TROPONIN I 0.25 NG/ML (< 0.10)
[2018-01-07 19:56] LABS: GLUCOSE, FASTING 444 MG/DL (70-100)
[2018-01-07] MEDS: RIVAROXABAN 15 MG TAB (XARELTO) PO (21:17)
[2018-01-07] MEDS: FLUTICASONE PROP 0.05% NASAL SPRAY 16 GM (FLONASE) (21:18)
[2018-01-08] MEDS: INSULIN HUMAN REGULAR 100 UNITS in NS 99 ML IV (01:13)
[2018-01-08] MEDS: INSULIN IV RATE CHANGE DOCUMENTATION ML/HR XX (01:16)
[2018-01-08] MEDS: IPRATROPIUM 0.5MG/ALBUTEROL 2.5MG INH SOL UD 3ML (DUONEB)(J7620) NEB ×4 (02:00→19:54)
[2018-01-08 02:26] LABS: BEDSIDE GLUCOSE 108 MG/DL (83-110)
[2018-01-08 02:26] LABS: BEDSIDE GLUCOSE 294 MG/DL (83-110)
[2018-01-08 02:26] LABS: BEDSIDE GLUCOSE 242 MG/DL (83-110)
[2018-01-08 02:26] LABS: BEDSIDE GLUCOSE 214 MG/DL (83-110)
[2018-01-08 02:26] LABS: BEDSIDE GLUCOSE 135 MG/DL (83-110)
[2018-01-08 03:39] LABS: HEMOGLOBIN 13.3 g/dl (12.0-16.0); MEAN CORPUSCULAR HGB CONC 33.3 g/dl (32.0-36.5); MEAN CORPUSCULAR VOLUME 90.1 fl (80.0-96.0); PLATELET COUNT, AUTOMATED 128 10^3/uL (150-450); RED BLOOD COUNT 4.44 10^6/uL (4.00-5.40); RED CELL DISTRIBUTION WIDTH 14.9 % (11.5-14.5); WHITE BLOOD COUNT 10.8 10^3/uL (4.0-10.0)
[2018-01-08 04:09] LABS: ANION GAP 7 MEQ/L (8-16); BLOOD UREA NITROGEN 64 MG/DL (7-18); CARBON DIOXIDE LEVEL 21 MEQ/L (21-32); CHLORIDE LEVEL 117 MEQ/L (98-107); CPK CREATINE PHOSPHOKINASE 40 U/L (26-192); CREATININE FOR GFR 1.41 MG/DL (0.55-1.30); GLOMERULAR FILTRATION RATE 38.8 (>39); GLUCOSE, FASTING 100 MG/DL (70-100); MAGNESIUM LEVEL 2.3 MG/DL (1.8-2.4); POTASSIUM SERUM 3.9 MEQ/L (3.5-5.1); SODIUM LEVEL 145 MEQ/L (136-145); TROPONIN I 0.24 NG/ML (< 0.10)
[2018-01-08 04:10] LABS: CK-MB VALUE MASS 3.2 NG/ML (0.0-3.6)
[2018-01-08] MEDS: NS 1,000 ML IV (04:23)
[2018-01-08] MEDS: ACETAMINOPHEN 650MG ER TAB (TYLENOL ARTHRITIS) PO ×3 (05:29→20:24)
[2018-01-08 06:31] LABS: BEDSIDE GLUCOSE 147 MG/DL (83-110)
[2018-01-08] MEDS: HumaLOG INSULIN (NovoLOG) PER UNIT SC ×4 (07:30→20:25)
[2018-01-08 07:42] LABS: BEDSIDE GLUCOSE > 600 MG/DL (83-110)
[2018-01-08] MEDS: guaiFENesin SYRUP 200 MG/10 ML UDC PO ×3 (07:54→20:23)
[2018-01-08] MEDS: LEVEMIR (INSULIN DETEMIR) 1 UNITS/0.01ML SC ×2 (09:21→18:13)
[2018-01-08] MEDS: PRAVASTATIN 20 MG TAB PO (09:22)
[2018-01-08] MEDS: BISOPROLOL FUMARATE 10 MG TAB PO ×2 (09:22→20:26)
[2018-01-08] MEDS: BENZONATATE 100 MG CAP PO ×2 (09:22→20:25)
[2018-01-08] MEDS: predniSONE 10 MG TAB PO (09:23)
[2018-01-08] MEDS: MAGNESIUM OXIDE 400 MG TAB (MAG-OX) PO ×2 (09:23→20:25)
[2018-01-08] MEDS: DICYCLOMINE 10 MG CAP PO ×2 (09:23→20:25)
[2018-01-08] MEDS: LevoFLOXacin IV 250 MG in APPROPRIATE DILUENT 1 EA IV (09:23)
[2018-01-08] MEDS: EUCERIN 120GM CREAM TOP (09:24)
[2018-01-08 11:46] LABS: CK-MB VALUE MASS 3.1 NG/ML (0.0-3.6); CPK CREATINE PHOSPHOKINASE 42 U/L (26-192); MB/CK RELATIVE INDEX 7.38 (< OR =4); TROPONIN I 0.14 NG/ML (< 0.10)
[2018-01-08 12:09] LABS: BEDSIDE GLUCOSE 535 MG/DL (83-110)
[2018-01-08] MEDS: MOM 30ML SUSPENSION UDC PO (15:25)
[2018-01-08 16:47] LABS: BEDSIDE GLUCOSE 442 MG/DL (83-110)
[2018-01-08 16:47] LABS: BEDSIDE GLUCOSE 257 MG/DL (83-110)
[2018-01-08 20:02] LABS: BEDSIDE GLUCOSE 481 MG/DL (83-110)
[2018-01-08] MEDS: RIVAROXABAN 15 MG TAB (XARELTO) PO (20:25)
[2018-01-08] MEDS: FLUTICASONE PROP 0.05% NASAL SPRAY 16 GM (FLONASE) (20:26)
[2018-01-09] MEDS: IPRATROPIUM 0.5MG/ALBUTEROL 2.5MG INH SOL UD 3ML (DUONEB)(J7620) NEB ×2 (02:00→07:52)
[2018-01-09 05:22] LABS: HEMATOCRIT 43.9 % (36.0-47.0); HEMOGLOBIN 14.1 g/dl (12.0-16.0); MEAN CORPUSCULAR HEMOGLOBIN 29.6 pg (27.0-33.0); MEAN CORPUSCULAR HGB CONC 32.1 g/dl (32.0-36.5); MEAN CORPUSCULAR VOLUME 92.2 fl (80.0-96.0); PLATELET COUNT, AUTOMATED 129 10^3/uL (150-450); RED BLOOD COUNT 4.76 10^6/uL (4.00-5.40); RED CELL DISTRIBUTION WIDTH 15.1 % (11.5-14.5); WHITE BLOOD COUNT 8.7 10^3/uL (4.0-10.0)
[2018-01-09] MEDS: ACETAMINOPHEN 650MG ER TAB (TYLENOL ARTHRITIS) PO ×3 (05:24→21:00)
[2018-01-09 05:44] LABS: ANION GAP 8 MEQ/L (8-16); BLOOD UREA NITROGEN 58 MG/DL (7-18); CALCIUM LEVEL 9.3 MG/DL (8.8-10.2); CARBON DIOXIDE LEVEL 19 MEQ/L (21-32); CHLORIDE LEVEL 116 MEQ/L (98-107); CREATININE FOR GFR 1.38 MG/DL (0.55-1.30); GLOMERULAR FILTRATION RATE 39.8 (>39); GLUCOSE, FASTING 229 MG/DL (70-100); MAGNESIUM LEVEL 2.5 MG/DL (1.8-2.4); SODIUM LEVEL 143 MEQ/L (136-145)
[2018-01-09 05:48] LABS: POTASSIUM SERUM 4.8 MEQ/L (3.5-5.1)
[2018-01-09] MEDS: LEVEMIR (INSULIN DETEMIR) 1 UNITS/0.01ML SC ×2 (08:26→20:50)
[2018-01-09] MEDS: HumaLOG INSULIN (NovoLOG) PER UNIT SC ×4 (08:26→20:50)
[2018-01-09] MEDS: BENZONATATE 100 MG CAP PO ×2 (08:27→20:48)
[2018-01-09] MEDS: predniSONE 10 MG TAB PO (08:27)
[2018-01-09] MEDS: MAGNESIUM OXIDE 400 MG TAB (MAG-OX) PO ×2 (08:27→21:00)
[2018-01-09] MEDS: guaiFENesin SYRUP 200 MG/10 ML UDC PO (08:29)
[2018-01-09] MEDS: DICYCLOMINE 10 MG CAP PO ×2 (08:29→20:47)
[2018-01-09] MEDS: EUCERIN 120GM CREAM TOP (08:29)
[2018-01-09] MEDS: BISOPROLOL FUMARATE 10 MG TAB PO ×2 (08:29→20:49)
[2018-01-09] MEDS: PRAVASTATIN 20 MG TAB PO (08:29)
[2018-01-09 12:15] LABS: BEDSIDE GLUCOSE 97 MG/DL (83-110)
[2018-01-09] MEDS: LEVALBUTEROL 1.25 MG/0.5 ML CONCENTRATE NEB INH ×2 (13:24→18:26)
[2018-01-09 18:45] LABS: BEDSIDE GLUCOSE 155 MG/DL (83-110)
[2018-01-09 20:42] LABS: BEDSIDE GLUCOSE 281 MG/DL (83-110)
[2018-01-09] MEDS: RIVAROXABAN 15 MG TAB (XARELTO) PO (20:47)
[2018-01-09] MEDS: FLUTICASONE PROP 0.05% NASAL SPRAY 16 GM (FLONASE) (20:50)
[2018-01-10 02:11] LABS: BEDSIDE GLUCOSE 267 MG/DL (83-110)
[2018-01-10] MEDS: ACETAMINOPHEN 650MG ER TAB (TYLENOL ARTHRITIS) PO ×3 (05:23→21:49)
[2018-01-10 06:15] LABS: HEMATOCRIT 41.5 % (36.0-47.0); HEMOGLOBIN 13.4 g/dl (12.0-16.0); MEAN CORPUSCULAR HEMOGLOBIN 29.5 pg (27.0-33.0); MEAN CORPUSCULAR HGB CONC 32.3 g/dl (32.0-36.5); MEAN CORPUSCULAR VOLUME 91.4 fl (80.0-96.0); PLATELET COUNT, AUTOMATED 132 10^3/uL (150-450); RED BLOOD COUNT 4.54 10^6/uL (4.00-5.40); RED CELL DISTRIBUTION WIDTH 14.9 % (11.5-14.5); WHITE BLOOD COUNT 7.7 10^3/uL (4.0-10.0)
[2018-01-10 06:32] LABS: ANION GAP 7 MEQ/L (8-16); BLOOD UREA NITROGEN 53 MG/DL (7-18); CALCIUM LEVEL 8.8 MG/DL (8.8-10.2); CARBON DIOXIDE LEVEL 20 MEQ/L (21-32); CHLORIDE LEVEL 114 MEQ/L (98-107); CREATININE FOR GFR 1.26 MG/DL (0.55-1.30); GLOMERULAR FILTRATION RATE 44.2 (>39); GLUCOSE, FASTING 252 MG/DL (70-100); MAGNESIUM LEVEL 2.3 MG/DL (1.8-2.4); POTASSIUM SERUM 4.3 MEQ/L (3.5-5.1); SODIUM LEVEL 141 MEQ/L (136-145)
[2018-01-10] MEDS: LEVALBUTEROL 1.25 MG/0.5 ML CONCENTRATE NEB INH ×3 (08:36→21:49)
[2018-01-10] MEDS: DICYCLOMINE 10 MG CAP PO ×2 (09:49→21:51)
[2018-01-10] MEDS: BENZONATATE 100 MG CAP PO (09:49)
[2018-01-10] MEDS: PRAVASTATIN 20 MG TAB PO (09:49)
[2018-01-10] MEDS: MAGNESIUM OXIDE 400 MG TAB (MAG-OX) PO ×2 (09:49→21:51)
[2018-01-10] MEDS: HumaLOG INSULIN (NovoLOG) PER UNIT SC ×4 (09:49→21:00)
[2018-01-10] MEDS: LEVEMIR (INSULIN DETEMIR) 1 UNITS/0.01ML SC ×2 (09:50→21:51)
[2018-01-10] MEDS: EUCERIN 120GM CREAM TOP (09:50)
[2018-01-10] MEDS: FUROSEMIDE 40 MG TAB PO ×2 (10:37→17:40)
[2018-01-10] MEDS: BISOPROLOL FUMARATE 5 MG TAB PO ×2 (10:37→21:50)
[2018-01-10 17:36] LABS: BEDSIDE GLUCOSE 275 MG/DL (83-110)
[2018-01-10 17:36] LABS: BEDSIDE GLUCOSE 242 MG/DL (83-110)
[2018-01-10 21:04] LABS: BEDSIDE GLUCOSE 239 MG/DL (83-110)
[2018-01-10] MEDS: RIVAROXABAN 15 MG TAB (XARELTO) PO (21:51)
[2018-01-10] MEDS: FLUTICASONE PROP 0.05% NASAL SPRAY 16 GM (FLONASE) (21:51)
[2018-01-11] MEDS: ACETAMINOPHEN 650MG ER TAB (TYLENOL ARTHRITIS) PO ×3 (05:26→21:39)
[2018-01-11 06:21] LABS: HEMATOCRIT 45.7 % (36.0-47.0); HEMOGLOBIN 15.2 g/dl (12.0-16.0); MEAN CORPUSCULAR HEMOGLOBIN 29.5 pg (27.0-33.0); MEAN CORPUSCULAR HGB CONC 33.3 g/dl (32.0-36.5); MEAN CORPUSCULAR VOLUME 88.7 fl (80.0-96.0); PLATELET COUNT, AUTOMATED 175 10^3/uL (150-450); RED BLOOD COUNT 5.15 10^6/uL (4.00-5.40); RED CELL DISTRIBUTION WIDTH 14.6 % (11.5-14.5); WHITE BLOOD COUNT 8.4 10^3/uL (4.0-10.0)
[2018-01-11 06:37] LABS: ANION GAP 9 MEQ/L (8-16); BLOOD UREA NITROGEN 51 MG/DL (7-18); CALCIUM LEVEL 9.6 MG/DL (8.8-10.2); CARBON DIOXIDE LEVEL 23 MEQ/L (21-32); CHLORIDE LEVEL 111 MEQ/L (98-107); CREATININE FOR GFR 1.19 MG/DL (0.55-1.30); GLOMERULAR FILTRATION RATE 47.2 (>39); GLUCOSE, FASTING 81 MG/DL (70-100); MAGNESIUM LEVEL 2.2 MG/DL (1.8-2.4); POTASSIUM SERUM 3.7 MEQ/L (3.5-5.1); SODIUM LEVEL 143 MEQ/L (136-145)
[2018-01-11] MEDS: LEVALBUTEROL 1.25 MG/0.5 ML CONCENTRATE NEB INH ×3 (07:50→21:39)
[2018-01-11] MEDS: HumaLOG INSULIN (NovoLOG) PER UNIT SC ×4 (08:17→21:41)
[2018-01-11] MEDS ORDERED: BENZONATATE 100 MG CAP PO (09:00)
[2018-01-11] MEDS: DICYCLOMINE 10 MG CAP PO ×2 (09:02→21:39)
[2018-01-11] MEDS: PRAVASTATIN 20 MG TAB PO (09:02)
[2018-01-11] MEDS: MAGNESIUM OXIDE 400 MG TAB (MAG-OX) PO ×2 (09:02→21:40)
[2018-01-11] MEDS: EUCERIN 120GM CREAM TOP (09:03)
[2018-01-11] MEDS: BISOPROLOL FUMARATE 5 MG TAB PO ×2 (09:03→21:40)
[2018-01-11] MEDS: FUROSEMIDE 40 MG TAB PO ×2 (09:03→17:36)
[2018-01-11] MEDS: LEVEMIR (INSULIN DETEMIR) 1 UNITS/0.01ML SC ×2 (09:03→21:40)
[2018-01-11 11:55] LABS: BEDSIDE GLUCOSE 244 MG/DL (83-110)
[2018-01-11 17:41] LABS: BEDSIDE GLUCOSE 350 MG/DL (83-110)
[2018-01-11] MEDS: RIVAROXABAN 15 MG TAB (XARELTO) PO (21:39)
[2018-01-11] MEDS: FLUTICASONE PROP 0.05% NASAL SPRAY 16 GM (FLONASE) (21:41)
[2018-01-12 02:49] LABS: BEDSIDE GLUCOSE 357 MG/DL (83-110)
[2018-01-12] MEDS: ACETAMINOPHEN 650MG ER TAB (TYLENOL ARTHRITIS) PO ×3 (05:37→20:53)
[2018-01-12 06:13] LABS: HEMATOCRIT 47.1 % (36.0-47.0); HEMOGLOBIN 15.6 g/dl (12.0-16.0); MEAN CORPUSCULAR HEMOGLOBIN 29.5 pg (27.0-33.0); MEAN CORPUSCULAR HGB CONC 33.1 g/dl (32.0-36.5); PLATELET COUNT, AUTOMATED 163 10^3/uL (150-450); RED BLOOD COUNT 5.29 10^6/uL (4.00-5.40); RED CELL DISTRIBUTION WIDTH 14.6 % (11.5-14.5)
[2018-01-12 06:35] LABS: ANION GAP 8 MEQ/L (8-16); BLOOD UREA NITROGEN 54 MG/DL (7-18); CALCIUM LEVEL 9.9 MG/DL (8.8-10.2); CARBON DIOXIDE LEVEL 25 MEQ/L (21-32); CHLORIDE LEVEL 108 MEQ/L (98-107); CREATININE FOR GFR 1.32 MG/DL (0.55-1.30); GLOMERULAR FILTRATION RATE 41.9 (>39); GLUCOSE, FASTING 97 MG/DL (70-100); MAGNESIUM LEVEL 2.3 MG/DL (1.8-2.4); POTASSIUM SERUM 3.4 MEQ/L (3.5-5.1); SODIUM LEVEL 141 MEQ/L (136-145)
[2018-01-12] MEDS: HumaLOG INSULIN (NovoLOG) PER UNIT SC ×4 (06:40→20:53)
[2018-01-12] MEDS: LEVALBUTEROL 1.25 MG/0.5 ML CONCENTRATE NEB INH ×2 (07:35→12:47)
[2018-01-12] MEDS: DICYCLOMINE 10 MG CAP PO ×2 (08:57→20:54)
[2018-01-12] MEDS: PRAVASTATIN 20 MG TAB PO (08:58)
[2018-01-12] MEDS: POTASSIUM CHLORIDE 10 MEQ SR TABLET PO (08:58)
[2018-01-12] MEDS: BISOPROLOL FUMARATE 5 MG TAB PO ×2 (08:58→20:54)
[2018-01-12] MEDS: FUROSEMIDE 40 MG TAB PO ×2 (08:58→17:51)
[2018-01-12] MEDS: LEVEMIR (INSULIN DETEMIR) 1 UNITS/0.01ML SC ×2 (08:59→20:53)
[2018-01-12] MEDS: EUCERIN 120GM CREAM TOP (08:59)
[2018-01-12] MEDS: MAGNESIUM OXIDE 400 MG TAB (MAG-OX) PO ×2 (08:59→20:54)
[2018-01-12 11:50] LABS: BEDSIDE GLUCOSE 237 MG/DL (83-110)
[2018-01-12 17:05] LABS: BEDSIDE GLUCOSE 288 MG/DL (83-110)
[2018-01-12 20:55] LABS: BEDSIDE GLUCOSE 412 MG/DL (83-110)
[2018-01-12] MEDS: FLUTICASONE PROP 0.05% NASAL SPRAY 16 GM (FLONASE) (20:55)
[2018-01-13] MEDS: ACETAMINOPHEN 650MG ER TAB (TYLENOL ARTHRITIS) PO ×3 (05:30→20:46)
[2018-01-13 07:19] LABS: ANION GAP 7 MEQ/L (8-16); BLOOD UREA NITROGEN 65 MG/DL (7-18); CALCIUM LEVEL 9.9 MG/DL (8.8-10.2); CARBON DIOXIDE LEVEL 24 MEQ/L (21-32); CHLORIDE LEVEL 106 MEQ/L (98-107); GLOMERULAR FILTRATION RATE 39.1 (>39); GLUCOSE, FASTING 125 MG/DL (70-100); POTASSIUM SERUM 3.8 MEQ/L (3.5-5.1); SODIUM LEVEL 137 MEQ/L (136-145)
[2018-01-13] MEDS ORDERED: LEVALBUTEROL 1.25 MG/0.5 ML CONCENTRATE NEB INH (08:00)
[2018-01-13] MEDS: HumaLOG INSULIN (NovoLOG) PER UNIT SC ×4 (08:02→20:55)
[2018-01-13] MEDS: MAGNESIUM OXIDE 400 MG TAB (MAG-OX) PO ×2 (09:22→20:46)
[2018-01-13] MEDS: BISOPROLOL FUMARATE 5 MG TAB PO ×2 (09:22→20:50)
[2018-01-13] MEDS: PRAVASTATIN 20 MG TAB PO (09:22)
[2018-01-13] MEDS: DICYCLOMINE 10 MG CAP PO ×2 (09:22→20:45)
[2018-01-13] MEDS: LEVEMIR (INSULIN DETEMIR) 1 UNITS/0.01ML SC ×2 (09:23→20:50)
[2018-01-13] MEDS: EUCERIN 120GM CREAM TOP (09:23)
[2018-01-13 11:56] LABS: BEDSIDE GLUCOSE 278 MG/DL (83-110)
[2018-01-13 16:59] LABS: BEDSIDE GLUCOSE 357 MG/DL (83-110)
[2018-01-13] MEDS: FLUTICASONE PROP 0.05% NASAL SPRAY 16 GM (FLONASE) (20:50)
[2018-01-13 22:04] LABS: BEDSIDE GLUCOSE 483 MG/DL (83-110)
[2018-01-14 05:28] LABS: HEMATOCRIT 45.2 % (36.0-47.0); HEMOGLOBIN 14.9 g/dl (12.0-16.0); MEAN CORPUSCULAR HEMOGLOBIN 29.3 pg (27.0-33.0); MEAN CORPUSCULAR VOLUME 88.8 fl (80.0-96.0); PLATELET COUNT, AUTOMATED 213 10^3/uL (150-450); RED BLOOD COUNT 5.09 10^6/uL (4.00-5.40); RED CELL DISTRIBUTION WIDTH 14.7 % (11.5-14.5); WHITE BLOOD COUNT 12.1 10^3/uL (4.0-10.0)
[2018-01-14 05:45] LABS: ANION GAP 7 MEQ/L (8-16); BLOOD UREA NITROGEN 70 MG/DL (7-18); CALCIUM LEVEL 9.6 MG/DL (8.8-10.2); CARBON DIOXIDE LEVEL 26 MEQ/L (21-32); CHLORIDE LEVEL 106 MEQ/L (98-107); CREATININE FOR GFR 1.52 MG/DL (0.55-1.30); GLOMERULAR FILTRATION RATE 35.6 (>39); GLUCOSE, FASTING 79 MG/DL (70-100); MAGNESIUM LEVEL 2.3 MG/DL (1.8-2.4); POTASSIUM SERUM 3.9 MEQ/L (3.5-5.1); SODIUM LEVEL 139 MEQ/L (136-145)
[2018-01-14] MEDS: ACETAMINOPHEN 650MG ER TAB (TYLENOL ARTHRITIS) PO ×3 (07:21→20:58)
[2018-01-14] MEDS: HumaLOG INSULIN (NovoLOG) PER UNIT SC ×4 (07:30→21:01)
[2018-01-14 08:14] LABS: BEDSIDE GLUCOSE 85 MG/DL (83-110)
[2018-01-14] MEDS: PRAVASTATIN 20 MG TAB PO (08:17)
[2018-01-14] MEDS: BISOPROLOL FUMARATE 5 MG TAB PO ×2 (08:17→20:57)
[2018-01-14] MEDS: MAGNESIUM OXIDE 400 MG TAB (MAG-OX) PO ×2 (08:17→20:58)
[2018-01-14] MEDS: DICYCLOMINE 10 MG CAP PO ×2 (08:18→20:58)
[2018-01-14] MEDS: LEVEMIR (INSULIN DETEMIR) 1 UNITS/0.01ML SC ×2 (09:00→20:57)
[2018-01-14] MEDS: EUCERIN 120GM CREAM TOP (09:00)
[2018-01-14 10:31] LABS: BEDSIDE GLUCOSE 166 MG/DL (83-110)
[2018-01-14 12:16] LABS: BEDSIDE GLUCOSE 129 MG/DL (83-110)
[2018-01-14 17:23] LABS: BEDSIDE GLUCOSE 242 MG/DL (83-110)
[2018-01-14] MEDS: FLUTICASONE PROP 0.05% NASAL SPRAY 16 GM (FLONASE) (20:58)
[2018-01-14 23:26] LABS: BEDSIDE GLUCOSE 367 MG/DL (83-110)
[2018-01-15 05:22] LABS: HEMATOCRIT 41.8 % (36.0-47.0); HEMOGLOBIN 13.8 g/dl (12.0-16.0); MEAN CORPUSCULAR HEMOGLOBIN 29.2 pg (27.0-33.0); MEAN CORPUSCULAR VOLUME 88.4 fl (80.0-96.0); PLATELET COUNT, AUTOMATED 200 10^3/uL (150-450); RED BLOOD COUNT 4.73 10^6/uL (4.00-5.40); RED CELL DISTRIBUTION WIDTH 14.7 % (11.5-14.5); WHITE BLOOD COUNT 8.4 10^3/uL (4.0-10.0)
[2018-01-15 05:34] LABS: ANION GAP 7 MEQ/L (8-16); BLOOD UREA NITROGEN 65 MG/DL (7-18); CALCIUM LEVEL 9.1 MG/DL (8.8-10.2); CARBON DIOXIDE LEVEL 23 MEQ/L (21-32); CHLORIDE LEVEL 109 MEQ/L (98-107); CREATININE FOR GFR 1.43 MG/DL (0.55-1.30); GLOMERULAR FILTRATION RATE 38.2 (>39); GLUCOSE, FASTING 143 MG/DL (70-100); MAGNESIUM LEVEL 2.4 MG/DL (1.8-2.4); POTASSIUM SERUM 3.9 MEQ/L (3.5-5.1); SODIUM LEVEL 139 MEQ/L (136-145)
[2018-01-15] MEDS: ACETAMINOPHEN 650MG ER TAB (TYLENOL ARTHRITIS) PO ×3 (05:38→22:00)
[2018-01-15] MEDS: HumaLOG INSULIN (NovoLOG) PER UNIT SC ×4 (07:30→21:59)
[2018-01-15] MEDS: LEVEMIR (INSULIN DETEMIR) 1 UNITS/0.01ML SC ×2 (09:00→21:00)
[2018-01-15] MEDS: BISOPROLOL FUMARATE 5 MG TAB PO ×2 (10:51→21:58)
[2018-01-15] MEDS: DICYCLOMINE 10 MG CAP PO ×2 (10:52→21:57)
[2018-01-15] MEDS: MAGNESIUM OXIDE 400 MG TAB (MAG-OX) PO ×2 (10:52→21:58)
[2018-01-15] MEDS: PRAVASTATIN 20 MG TAB PO (10:52)
[2018-01-15] MEDS: EUCERIN 120GM CREAM TOP (10:53)
[2018-01-15] MEDS ORDERED: ONDANSETRON 4MG/2ML VIAL (J2405) As Ordered (11:31)
[2018-01-15] MEDS ORDERED: LIDOCAINE 2% INJ 100 MG/5 ML SDV (FOR ANES.) As Ordered (11:31)
[2018-01-15] MEDS ORDERED: PROPOFOL 200 MG/20 ML VIAL As Ordered ×3 (11:31→11:50)
[2018-01-15] MEDS ORDERED: fentaNYL 100 MCG/2 ML INJECTION (J3010) As Ordered (11:31)
[2018-01-15] MEDS ORDERED: MIDAZOLAM INJ 2 MG/2 ML VIAL (J2250) As Ordered (11:32)
[2018-01-15 12:04] LABS: BEDSIDE GLUCOSE 83 MG/DL (83-110)
[2018-01-15] MEDS: ceFAZolin 2 GM/D5W 50 ML IV BAG (J0690 PER 500MG) As Ordered (12:49)
[2018-01-15] MEDS: VANCOMYCIN 1000 MG/20 ML VIAL (J3370) As Ordered (13:00)
[2018-01-15] MEDS: ISOVUE-300 61% 50ML VIAL (Q9967) As Ordered (13:01)
[2018-01-15] MEDS: LIDOCAINE 1% SDV INJ 30 ML VIAL As Ordered (14:15)
[2018-01-15] MEDS: MUPIROCIN 2% OINT 22 GM TUBE As Ordered (14:16)
[2018-01-15] MEDS: LR 1,000 ML IV (15:15)
[2018-01-15] MEDS ORDERED: fentaNYL 100 MCG/2 ML INJECTION (J3010) IV (15:15)
[2018-01-15] MEDS ORDERED: ONDANSETRON 4MG/2ML VIAL (J2405) IV (15:15)
[2018-01-15] MEDS: ASCORBIC ACID 250 MG TAB PO (21:58)
[2018-01-15] MEDS: FLUTICASONE PROP 0.05% NASAL SPRAY 16 GM (FLONASE) (21:59)
[2018-01-16 05:53] LABS: HEMATOCRIT 45.4 % (36.0-47.0); HEMOGLOBIN 14.8 g/dl (12.0-16.0); MEAN CORPUSCULAR HEMOGLOBIN 29.6 pg (27.0-33.0); MEAN CORPUSCULAR HGB CONC 32.6 g/dl (32.0-36.5); MEAN CORPUSCULAR VOLUME 90.8 fl (80.0-96.0); PLATELET COUNT, AUTOMATED 165 10^3/uL (150-450); RED CELL DISTRIBUTION WIDTH 14.5 % (11.5-14.5); WHITE BLOOD COUNT 10.5 10^3/uL (4.0-10.0)
[2018-01-16 06:18] LABS: ANION GAP 10 MEQ/L (8-16); BLOOD UREA NITROGEN 78 MG/DL (7-18); CALCIUM LEVEL 8.8 MG/DL (8.8-10.2); CARBON DIOXIDE LEVEL 19 MEQ/L (21-32); CHLORIDE LEVEL 100 MEQ/L (98-107); CREATININE FOR GFR 1.73 MG/DL (0.55-1.30); GLOMERULAR FILTRATION RATE 30.7 (>39); MAGNESIUM LEVEL 2.5 MG/DL (1.8-2.4); SODIUM LEVEL 129 MEQ/L (136-145)
[2018-01-16 06:19] LABS: GLUCOSE, FASTING 527 MG/DL (70-100)
[2018-01-16 06:22] LABS: POTASSIUM SERUM 5.4 MEQ/L (3.5-5.1)
[2018-01-16] MEDS: ACETAMINOPHEN 650MG ER TAB (TYLENOL ARTHRITIS) PO ×3 (07:18→20:26)
[2018-01-16] MEDS: HumaLOG INSULIN (NovoLOG) PER UNIT SC ×4 (07:30→13:06)
[2018-01-16] MEDS: ASCORBIC ACID 250 MG TAB PO ×2 (08:27→20:26)
[2018-01-16] MEDS: PRAVASTATIN 20 MG TAB PO (08:28)
[2018-01-16] MEDS: LEVEMIR (INSULIN DETEMIR) 1 UNITS/0.01ML SC (08:28)
[2018-01-16] MEDS: DICYCLOMINE 10 MG CAP PO ×2 (08:28→18:09)
[2018-01-16] MEDS: BISOPROLOL FUMARATE 5 MG TAB PO ×2 (08:29→20:26)
[2018-01-16] MEDS: EUCERIN 120GM CREAM TOP (08:30)
[2018-01-16 08:57] LABS: BEDSIDE GLUCOSE 401 MG/DL (83-110)
[2018-01-16] MEDS: MAGNESIUM OXIDE 400 MG TAB (MAG-OX) PO ×2 (09:00→20:27)
[2018-01-16 09:02] LABS: BEDSIDE GLUCOSE 97 MG/DL (83-110)
[2018-01-16] MEDS: BENZOCAINE 10% 9GM TUBE (ANBESOL) MT (09:54)
[2018-01-16] MEDS: FUROSEMIDE 20 MG TAB PO (09:55)
[2018-01-16] MEDS: ONDANSETRON 4MG/2ML VIAL (J2405) IV ×2 (12:20→21:36)
[2018-01-16 12:25] LABS: BEDSIDE GLUCOSE 215 MG/DL (83-110)
[2018-01-16 12:46] LABS: BEDSIDE GLUCOSE CONFIRMATION 725 MG/DL (LESS THAN 200)
[2018-01-16 14:14] LABS: BEDSIDE GLUCOSE > 600 MG/DL (83-110)
[2018-01-16 14:14] LABS: BEDSIDE GLUCOSE > 600 MG/DL (83-110)
[2018-01-16 15:07] LABS: ANION GAP 12 MEQ/L (8-16); BLOOD UREA NITROGEN 77 MG/DL (7-18); CARBON DIOXIDE LEVEL 19 MEQ/L (21-32); CHLORIDE LEVEL 96 MEQ/L (98-107); CREATININE FOR GFR 1.85 MG/DL (0.55-1.30); GLOMERULAR FILTRATION RATE 28.4 (>39); SODIUM LEVEL 127 MEQ/L (136-145)
[2018-01-16 15:11] LABS: GLUCOSE, FASTING 700 MG/DL (70-100); POTASSIUM SERUM 5.5 MEQ/L (3.5-5.1)
[2018-01-16] MEDS: NS 1,000 ML IV (16:04)
[2018-01-16] MEDS: METOCLOPRAMIDE INJ 10MG/2ML VIAL (J2765) IV (16:11)
[2018-01-16] MEDS ORDERED: FUROSEMIDE 20 MG TAB PO (17:00)
[2018-01-16] MEDS: INSULIN HUMAN REGULAR 100 UNITS in NS 99 ML IV (17:26)
[2018-01-16] MEDS: INSULIN IV RATE CHANGE DOCUMENTATION ML/HR XX ×5 (17:28→23:10)
[2018-01-16 18:50] LABS: CALCIUM LEVEL 8.8 MG/DL (8.8-10.2); CHLORIDE LEVEL 99 MEQ/L (98-107); SODIUM LEVEL 128 MEQ/L (136-145)
[2018-01-16 18:54] LABS: BEDSIDE GLUCOSE 530 MG/DL (83-110)
[2018-01-16] MEDS: RIVAROXABAN 15 MG TAB (XARELTO) PO (18:59)
[2018-01-16 19:00] LABS: ANION GAP 10 MEQ/L (8-16); BLOOD UREA NITROGEN 75 MG/DL (7-18); CARBON DIOXIDE LEVEL 19 MEQ/L (21-32); CREATININE FOR GFR 1.87 MG/DL (0.55-1.30)
[2018-01-16 19:06] LABS: GLUCOSE, FASTING 604 MG/DL (70-100)
[2018-01-16 20:11] LABS: ANION GAP 10 MEQ/L (8-16); BLOOD UREA NITROGEN 78 MG/DL (7-18); CALCIUM LEVEL 8.7 MG/DL (8.8-10.2); CARBON DIOXIDE LEVEL 18 MEQ/L (21-32); CHLORIDE LEVEL 101 MEQ/L (98-107); CREATININE FOR GFR 1.77 MG/DL (0.55-1.30); GLOMERULAR FILTRATION RATE 29.9 (>39); POTASSIUM SERUM 4.8 MEQ/L (3.5-5.1); SODIUM LEVEL 129 MEQ/L (136-145)
[2018-01-16 20:12] LABS: GLUCOSE, FASTING 535 MG/DL (70-100)
[2018-01-16 20:20] LABS: BEDSIDE GLUCOSE 511 MG/DL (83-110)
[2018-01-16] MEDS: FLUTICASONE PROP 0.05% NASAL SPRAY 16 GM (FLONASE) (20:27)
[2018-01-16 22:18] LABS: ANION GAP 8 MEQ/L (8-16); BLOOD UREA NITROGEN 76 MG/DL (7-18); CALCIUM LEVEL 8.9 MG/DL (8.8-10.2); CARBON DIOXIDE LEVEL 23 MEQ/L (21-32); CHLORIDE LEVEL 102 MEQ/L (98-107); CREATININE FOR GFR 1.86 MG/DL (0.55-1.30); GLOMERULAR FILTRATION RATE 28.2 (>39); GLUCOSE, FASTING 375 MG/DL (70-100); POTASSIUM SERUM 4.3 MEQ/L (3.5-5.1); SODIUM LEVEL 133 MEQ/L (136-145)
[2018-01-16 23:16] LABS: BEDSIDE GLUCOSE 406 MG/DL (83-110)
[2018-01-16 23:16] LABS: BEDSIDE GLUCOSE 304 MG/DL (83-110)
[2018-01-17] MEDS: INSULIN IV RATE CHANGE DOCUMENTATION ML/HR XX ×3 (00:11→04:25)
[2018-01-17 00:14] LABS: ANION GAP 10 MEQ/L (8-16); BLOOD UREA NITROGEN 73 MG/DL (7-18); CALCIUM LEVEL 8.7 MG/DL (8.8-10.2); CARBON DIOXIDE LEVEL 21 MEQ/L (21-32); CHLORIDE LEVEL 104 MEQ/L (98-107); CREATININE FOR GFR 1.75 MG/DL (0.55-1.30); GLOMERULAR FILTRATION RATE 30.2 (>39); GLUCOSE, FASTING 281 MG/DL (70-100); POTASSIUM SERUM 4.5 MEQ/L (3.5-5.1); SODIUM LEVEL 135 MEQ/L (136-145)
[2018-01-17 00:17] LABS: BEDSIDE GLUCOSE 278 MG/DL (83-110)
[2018-01-17 01:05] LABS: BEDSIDE GLUCOSE 280 MG/DL (83-110)
[2018-01-17 02:01] LABS: ANION GAP 7 MEQ/L (8-16); BLOOD UREA NITROGEN 74 MG/DL (7-18); CARBON DIOXIDE LEVEL 23 MEQ/L (21-32); CHLORIDE LEVEL 104 MEQ/L (98-107); CREATININE FOR GFR 1.69 MG/DL (0.55-1.30); GLOMERULAR FILTRATION RATE 31.5 (>39); GLUCOSE, FASTING 248 MG/DL (70-100); POTASSIUM SERUM 4.4 MEQ/L (3.5-5.1); SODIUM LEVEL 134 MEQ/L (136-145)
[2018-01-17 03:23] LABS: BEDSIDE GLUCOSE 207 MG/DL (83-110)
[2018-01-17 04:30] LABS: HEMATOCRIT 40.4 % (36.0-47.0); HEMOGLOBIN 13.4 g/dl (12.0-16.0); MEAN CORPUSCULAR HEMOGLOBIN 29.7 pg (27.0-33.0); MEAN CORPUSCULAR HGB CONC 33.2 g/dl (32.0-36.5); MEAN CORPUSCULAR VOLUME 89.6 fl (80.0-96.0); PLATELET COUNT, AUTOMATED 195 10^3/uL (150-450); RED BLOOD COUNT 4.51 10^6/uL (4.00-5.40); RED CELL DISTRIBUTION WIDTH 14.7 % (11.5-14.5); WHITE BLOOD COUNT 14.3 10^3/uL (4.0-10.0)
[2018-01-17 04:31] LABS: BEDSIDE GLUCOSE 170 MG/DL (83-110)
[2018-01-17 04:50] LABS: ANION GAP 7 MEQ/L (8-16); BLOOD UREA NITROGEN 75 MG/DL (7-18); CALCIUM LEVEL 8.6 MG/DL (8.8-10.2); CARBON DIOXIDE LEVEL 22 MEQ/L (21-32); CHLORIDE LEVEL 109 MEQ/L (98-107); CREATININE FOR GFR 1.54 MG/DL (0.55-1.30); GLOMERULAR FILTRATION RATE 35.1 (>39); GLUCOSE, FASTING 157 MG/DL (70-100); POTASSIUM SERUM 4.2 MEQ/L (3.5-5.1); SODIUM LEVEL 138 MEQ/L (136-145)
[2018-01-17] MEDS: ACETAMINOPHEN 650MG ER TAB (TYLENOL ARTHRITIS) PO ×3 (05:18→21:04)
[2018-01-17] MEDS: NS 1,000 ML IV (05:18)
[2018-01-17] MEDS: INSULIN HUMAN REGULAR 100 UNITS in NS 99 ML IV (05:57)
[2018-01-17 06:18] LABS: BEDSIDE GLUCOSE 101 MG/DL (83-110)
[2018-01-17 06:18] LABS: BEDSIDE GLUCOSE 140 MG/DL (83-110)
[2018-01-17 06:20] LABS: ANION GAP 7 MEQ/L (8-16); BLOOD UREA NITROGEN 71 MG/DL (7-18); CALCIUM LEVEL 8.6 MG/DL (8.8-10.2); CARBON DIOXIDE LEVEL 23 MEQ/L (21-32); CHLORIDE LEVEL 108 MEQ/L (98-107); CREATININE FOR GFR 1.46 MG/DL (0.55-1.30); GLOMERULAR FILTRATION RATE 37.3 (>39); GLUCOSE, FASTING 108 MG/DL (70-100); MAGNESIUM LEVEL 2.6 MG/DL (1.8-2.4); POTASSIUM SERUM 4.1 MEQ/L (3.5-5.1); SODIUM LEVEL 138 MEQ/L (136-145)
[2018-01-17 06:59] LABS: BEDSIDE GLUCOSE 101 MG/DL (83-110)
[2018-01-17 08:24] LABS: BEDSIDE GLUCOSE 61 MG/DL (83-110)
[2018-01-17 08:40] LABS: BEDSIDE GLUCOSE 52 MG/DL (83-110)
[2018-01-17 09:14] LABS: BEDSIDE GLUCOSE 81 MG/DL (83-110)
[2018-01-17] MEDS: PRAVASTATIN 20 MG TAB PO (09:19)
[2018-01-17] MEDS: LEVEMIR (INSULIN DETEMIR) 1 UNITS/0.01ML SC ×2 (09:19→21:06)
[2018-01-17] MEDS: DICYCLOMINE 10 MG CAP PO ×2 (09:19→21:04)
[2018-01-17] MEDS: BISOPROLOL FUMARATE 5 MG TAB PO ×2 (09:20→21:04)
[2018-01-17] MEDS: EUCERIN 120GM CREAM TOP (09:21)
[2018-01-17] MEDS: ASCORBIC ACID 250 MG TAB PO ×2 (09:23→21:03)
[2018-01-17 09:36] LABS: BEDSIDE GLUCOSE > 600 MG/DL (83-110)
[2018-01-17] MEDS: MAGNESIUM OXIDE 400 MG TAB (MAG-OX) PO ×2 (09:40→21:04)
[2018-01-17 12:51] LABS: BEDSIDE GLUCOSE 226 MG/DL (83-110)
[2018-01-17] MEDS: FUROSEMIDE 40 MG TAB PO (13:14)
[2018-01-17] MEDS: MOM 30ML SUSPENSION UDC PO (13:14)
[2018-01-17] MEDS: HumaLOG INSULIN (NovoLOG) PER UNIT SC ×3 (13:14→21:05)
[2018-01-17] MEDS: RIVAROXABAN 15 MG TAB (XARELTO) PO (17:33)
[2018-01-17 17:36] LABS: BEDSIDE GLUCOSE 282 MG/DL (83-110)
[2018-01-17] MEDS: ONDANSETRON 4MG/2ML VIAL (J2405) IV (18:29)
[2018-01-17 19:52] LABS: BEDSIDE GLUCOSE 305 MG/DL (83-110)
[2018-01-17] MEDS: BISACODYL 10 MG SUPP PR (21:05)
[2018-01-17] MEDS: FLUTICASONE PROP 0.05% NASAL SPRAY 16 GM (FLONASE) (22:47)
[2018-01-18 06:16] LABS: HEMOGLOBIN 14.6 g/dl (12.0-16.0); MEAN CORPUSCULAR HGB CONC 32.4 g/dl (32.0-36.5); MEAN CORPUSCULAR VOLUME 89.5 fl (80.0-96.0); PLATELET COUNT, AUTOMATED 195 10^3/uL (150-450); RED BLOOD COUNT 5.03 10^6/uL (4.00-5.40); RED CELL DISTRIBUTION WIDTH 14.6 % (11.5-14.5); WHITE BLOOD COUNT 10.5 10^3/uL (4.0-10.0)
[2018-01-18] MEDS: ACETAMINOPHEN 650MG ER TAB (TYLENOL ARTHRITIS) PO ×2 (07:02→12:45)
[2018-01-18] MEDS: HumaLOG INSULIN (NovoLOG) PER UNIT SC ×2 (07:30→12:00)
[2018-01-18 08:26] LABS: ANION GAP 5 MEQ/L (8-16); BLOOD UREA NITROGEN 55 MG/DL (7-18); CALCIUM LEVEL 9.1 MG/DL (8.8-10.2); CARBON DIOXIDE LEVEL 28 MEQ/L (21-32); CHLORIDE LEVEL 107 MEQ/L (98-107); CREATININE FOR GFR 1.28 MG/DL (0.55-1.30); GLOMERULAR FILTRATION RATE 43.4 (>39); GLUCOSE, FASTING 153 MG/DL (70-100); MAGNESIUM LEVEL 2.5 MG/DL (1.8-2.4); POTASSIUM SERUM 4.5 MEQ/L (3.5-5.1); SODIUM LEVEL 140 MEQ/L (136-145)
[2018-01-18] MEDS: MAGNESIUM OXIDE 400 MG TAB (MAG-OX) PO (09:00)
[2018-01-18] MEDS: LEVEMIR (INSULIN DETEMIR) 1 UNITS/0.01ML SC (09:00)
[2018-01-18] MEDS: DICYCLOMINE 10 MG CAP PO (09:05)
[2018-01-18] MEDS: PRAVASTATIN 20 MG TAB PO (09:06)
[2018-01-18] MEDS: ASCORBIC ACID 250 MG TAB PO (09:06)
[2018-01-18] MEDS: EUCERIN 120GM CREAM TOP (09:07)
[2018-01-18] MEDS: BISOPROLOL FUMARATE 5 MG TAB PO (09:07)
[2018-01-18 12:25] LABS: BEDSIDE GLUCOSE 194 MG/DL (83-110)
[2018-01-18] MEDS: FUROSEMIDE 40 MG TAB PO (12:45)
== END 2018-01-18 12:54 | DRG 202 ==
LOC: M PCU 01-06 17:10 → M ICU 01-07 15:11 → M PCU 01-13 12:40 → M MSPAV 01-17 12:25 → M ICU 01-16 15:50 → M ED 13:59 → M ED INP 19:17 → M MSPAV 22:43
PROC: 0JH604Z Insertion of Pacemaker, Single Chamber into Chest Subcutaneous Tissue and Fascia, Open Approach (ICD-10-PCS; principal; 2018-01-15 12:00)
PROC: 02HK3JZ Insertion of Pacemaker Lead into Right Ventricle, Percutaneous Approach (ICD-10-PCS; 2018-01-15 12:00)
DX: J20.5 Acute bronchitis due to respiratory syncytial virus (principal); I13.0 Hypertensive heart and chronic kidney disease with heart failure and stage 1 through stage 4 chronic kidney disease, or unspecified chronic kidney disease; I50.32 Chronic diastolic (congestive) heart failure; I48.1 Persistent atrial fibrillation; Z68.41 Body mass index [BMI] 40.0-44.9, adult; N18.3 Chronic kidney disease, stage 3 (moderate); I48.2 Chronic atrial fibrillation; E78.5 Hyperlipidemia, unspecified; E11.65 Type 2 diabetes mellitus with hyperglycemia; E11.22 Type 2 diabetes mellitus with diabetic chronic kidney disease; I49.5 Sick sinus syndrome; I35.0 Nonrheumatic aortic (valve) stenosis; E66.01 Morbid (severe) obesity due to excess calories; Z79.01 Long term (current) use of anticoagulants; Z88.1 Allergy status to other antibiotic agents; Z79.4 Long term (current) use of insulin; D70.9 Neutropenia, unspecified; Z79.899 Other long term (current) drug therapy; Z87.442 Personal history of urinary calculi

== ENCOUNTER → 2018-01-05 | Outpatient (REF) | payer MEDICARE, MEDICAID ==
[2018-01-05 13:20] LABS: INFLUENZA A AMPLIFICATION NEGATIVE (NEGATIVE); INFLUENZA B AMPLIFICATION NEGATIVE (NEGATIVE)
== END ==
DX: R05 Cough (principal); I50.9 Heart failure, unspecified
CPT/HCPCS: 87502

== ENCOUNTER 2018-01-19 10:39 | Inpatient (IN) | payer MEDICARE, MEDICAID ==
[2018-01-19] MEDS: PANTOPRAZOLE SODIUM 40 MG in D5W 50 ML IV ×2 (13:15→18:15)
[2018-01-19] MEDS: PANTOPRAZOLE 40MG INJ (PROTONIX) (C9113) IV (13:15)
[2018-01-19 13:49] LABS: BASO # 0.1 10^3/uL (0.0-0.2); BASO % 0.4 % (0.0-1.0); EOS # 0.1 10^3/uL (0.0-0.50); EOS % 0.6 % (0.0-3.0); HEMOGLOBIN 15.2 g/dl (12.0-16.0); IMMATURE GRANULOCYTE % 0.7 % (0-3.0); LYMPH # 1.1 10^3/uL (1.5-4.5); LYMPH % 9.5 % (24.0-44.0); MEAN CORPUSCULAR HGB CONC 33.8 g/dl (32.0-36.5); MEAN CORPUSCULAR VOLUME 88.8 fl (80.0-96.0); MONO # 0.8 10^3/uL (0.0-0.8); NEUTROPHILS # 9.3 10^3/uL (1.8-7.7); NEUTROPHILS % 81.8 % (36.0-66.0); PLATELET COUNT, AUTOMATED 189 10^3/uL (150-450); RED BLOOD COUNT 5.07 10^6/uL (4.00-5.40); RED CELL DISTRIBUTION WIDTH 14.6 % (11.5-14.5); WHITE BLOOD COUNT 11.4 10^3/uL (4.0-10.0)
[2018-01-19 13:59] LABS: INR 1.43; PROTHROMBIN TIME 17.8 SECONDS (12.4-14.5)
[2018-01-19 14:00] LABS: PARTIAL THROMBOPLASTIN TIME 32.6 SECONDS (26.8-37.9)
[2018-01-19 14:06] LABS: ALBUMIN 2.9 GM/DL (3.2-5.2); ALBUMIN/GLOBULIN RATIO 0.71 (1.00-1.93); ALKALINE PHOSPHATASE 121 U/L (45-117); ALT/SGPT 61 U/L (12-78); ANION GAP 5 MEQ/L (8-16); AST/SGOT 37 U/L (7-37); BILIRUBIN,DIRECT 0.2 MG/DL (0.0-0.2); BILIRUBIN,TOTAL 0.6 MG/DL (0.2-1.0); BLOOD UREA NITROGEN 40 MG/DL (7-18); CALCIUM LEVEL 9.3 MG/DL (8.8-10.2); CARBON DIOXIDE LEVEL 28 MEQ/L (21-32); CHLORIDE LEVEL 106 MEQ/L (98-107); CREATININE FOR GFR 1.26 MG/DL (0.55-1.30); GLOMERULAR FILTRATION RATE 44.2 (>39); GLUCOSE, FASTING 73 MG/DL (70-100); LIPASE 72 U/L (73-393); POTASSIUM SERUM 3.5 MEQ/L (3.5-5.1); SODIUM LEVEL 139 MEQ/L (136-145)
[2018-01-19] MEDS: ONDANSETRON 4MG/2ML VIAL (J2405) IV (14:28)
[2018-01-19] MEDS: MORPHINE 2 MG/ML 1ML SYRINGE (J2270) IV (14:29)
[2018-01-19] MEDS: NS 1,000 ML IV (15:42)
[2018-01-19] MEDS ORDERED: ONDANSETRON 4MG/2ML VIAL (J2405) IV (15:45)
[2018-01-19] MEDS ORDERED: GLUCOSE 4 GM CHEW TABLET PO (15:45)
[2018-01-19] MEDS ORDERED: GLUCAGON FOR INJ 1 MG VIAL (J1610) SC (15:45)
[2018-01-19] MEDS: SUCRALFATE SUSP 1GM/10ML UD PO (18:00)
[2018-01-19] MEDS: HumaLOG INSULIN (NovoLOG) PER UNIT SC (18:00)
[2018-01-19] MEDS: FLUTICASONE PROP 0.05% NASAL SPRAY 16 GM (FLONASE) (21:00)
[2018-01-19] MEDS ORDERED: LEVEMIR (INSULIN DETEMIR) 1 UNITS/0.01ML SC (21:00)
[2018-01-19] MEDS: BENZONATATE 100 MG CAP PO (21:00)
[2018-01-19] MEDS: BISOPROLOL FUMARATE 5 MG TAB PO (21:00)
[2018-01-19] MEDS: DICYCLOMINE 10 MG CAP PO (21:00)
[2018-01-19] MEDS: DEXTROSE 50% 50 ML SYRINGE IV (21:19)
[2018-01-19] MEDS: D5W/0.9% SODIUM CHLORIDE 1,000 ML IV (22:00)
[2018-01-19 22:01] LABS: HEMATOCRIT 44.3 % (36.0-47.0); HEMOGLOBIN 14.2 g/dl (12.0-16.0)
[2018-01-20] MEDS: SUCRALFATE SUSP 1GM/10ML UD PO ×4 (00:30→17:19)
[2018-01-20] MEDS: PANTOPRAZOLE SODIUM 40 MG in D5W 50 ML IV ×6 (00:30→22:25)
[2018-01-20 00:50] LABS: BEDSIDE GLUCOSE 252 MG/DL (83-110)
[2018-01-20] MEDS: HumaLOG INSULIN (NovoLOG) PER UNIT SC ×4 (01:50→17:19)
[2018-01-20 02:39] LABS: BEDSIDE GLUCOSE 212 MG/DL (83-110)
[2018-01-20 05:05] LABS: BEDSIDE GLUCOSE 57 MG/DL (83-110)
[2018-01-20 05:05] LABS: BEDSIDE GLUCOSE 118 MG/DL (83-110)
[2018-01-20 05:51] LABS: HEMATOCRIT 40.4 % (36.0-47.0); HEMOGLOBIN 13.3 g/dl (12.0-16.0); MEAN CORPUSCULAR HEMOGLOBIN 29.4 pg (27.0-33.0); MEAN CORPUSCULAR HGB CONC 32.9 g/dl (32.0-36.5); MEAN CORPUSCULAR VOLUME 89.2 fl (80.0-96.0); PLATELET COUNT, AUTOMATED 167 10^3/uL (150-450); RED BLOOD COUNT 4.53 10^6/uL (4.00-5.40); RED CELL DISTRIBUTION WIDTH 14.5 % (11.5-14.5)
[2018-01-20 06:24] LABS: ALBUMIN 2.4 GM/DL (3.2-5.2); ALKALINE PHOSPHATASE 97 U/L (45-117); ALT/SGPT 42 U/L (12-78); ANION GAP 9 MEQ/L (8-16); AST/SGOT 21 U/L (7-37); BILIRUBIN,TOTAL 0.5 MG/DL (0.2-1.0); BLOOD UREA NITROGEN 33 MG/DL (7-18); CALCIUM LEVEL 8.8 MG/DL (8.8-10.2); CARBON DIOXIDE LEVEL 23 MEQ/L (21-32); CHLORIDE LEVEL 108 MEQ/L (98-107); CREATININE FOR GFR 1.25 MG/DL (0.55-1.30); GLOMERULAR FILTRATION RATE 44.6 (>39); GLUCOSE, FASTING 148 MG/DL (70-100); MAGNESIUM LEVEL 2.2 MG/DL (1.8-2.4); POTASSIUM SERUM 3.5 MEQ/L (3.5-5.1); SODIUM LEVEL 140 MEQ/L (136-145); TOTAL PROTEIN 5.4 GM/DL (6.4-8.2)
[2018-01-20 07:57] LABS: BEDSIDE GLUCOSE 129 MG/DL (83-110)
[2018-01-20] MEDS: BENZONATATE 100 MG CAP PO ×2 (09:04→22:26)
[2018-01-20] MEDS: DICYCLOMINE 10 MG CAP PO ×2 (09:04→22:26)
[2018-01-20] MEDS: LEVEMIR (INSULIN DETEMIR) 1 UNITS/0.01ML SC ×2 (09:04→22:27)
[2018-01-20] MEDS: BISOPROLOL FUMARATE 5 MG TAB PO ×2 (09:05→22:27)
[2018-01-20] MEDS: PRAVASTATIN 20 MG TAB PO (09:05)
[2018-01-20] MEDS: NS 1,000 ML IV (09:05)
[2018-01-20] MEDS: EUCERIN 120GM CREAM TOP (09:06)
[2018-01-20 11:48] LABS: BEDSIDE GLUCOSE 200 MG/DL (83-110)
[2018-01-20 14:09] LABS: HEMATOCRIT 42.2 % (36.0-47.0); HEMOGLOBIN 13.7 g/dl (12.0-16.0)
[2018-01-20] MEDS ORDERED: GOLYTELY SOLN 4000 ML BTL PO (15:00)
[2018-01-20 17:13] LABS: BEDSIDE GLUCOSE 148 MG/DL (83-110)
[2018-01-20] MEDS: GOLYTELY SOLN 4000 ML BTL PO (17:18)
[2018-01-20] MEDS: ACETAMINOPHEN TAB 650MG DOSE (2X325MG) PO (20:30)
[2018-01-20 21:44] LABS: HEMATOCRIT 47.1 % (36.0-47.0); HEMOGLOBIN 14.9 g/dl (12.0-16.0)
[2018-01-20 21:47] LABS: BEDSIDE GLUCOSE 220 MG/DL (83-110)
[2018-01-20] MEDS: FLUTICASONE PROP 0.05% NASAL SPRAY 16 GM (FLONASE) (22:28)
[2018-01-20 23:55] LABS: BEDSIDE GLUCOSE 255 MG/DL (83-110)
[2018-01-21] MEDS: SUCRALFATE SUSP 1GM/10ML UD PO ×5 (01:17→23:25)
[2018-01-21] MEDS: HumaLOG INSULIN (NovoLOG) PER UNIT SC ×5 (01:52→21:00)
[2018-01-21] MEDS: PANTOPRAZOLE SODIUM 40 MG in D5W 50 ML IV ×4 (03:04→21:21)
[2018-01-21 03:45] LABS: BEDSIDE GLUCOSE 146 MG/DL (83-110)
[2018-01-21 05:33] LABS: HEMATOCRIT 38.2 % (36.0-47.0); MEAN CORPUSCULAR HEMOGLOBIN 29.2 pg (27.0-33.0); MEAN CORPUSCULAR VOLUME 88.6 fl (80.0-96.0); PLATELET COUNT, AUTOMATED 160 10^3/uL (150-450); RED BLOOD COUNT 4.31 10^6/uL (4.00-5.40); RED CELL DISTRIBUTION WIDTH 14.4 % (11.5-14.5); WHITE BLOOD COUNT 7.1 10^3/uL (4.0-10.0)
[2018-01-21 05:41] LABS: HEMOGLOBIN 12.6 g/dl (12.0-16.0)
[2018-01-21 05:49] LABS: ALBUMIN 2.4 GM/DL (3.2-5.2); ALBUMIN/GLOBULIN RATIO 0.89 (1.00-1.93); ALKALINE PHOSPHATASE 97 U/L (45-117); ALT/SGPT 42 U/L (12-78); ANION GAP 8 MEQ/L (8-16); AST/SGOT 17 U/L (7-37); BILIRUBIN,TOTAL 0.5 MG/DL (0.2-1.0); BLOOD UREA NITROGEN 23 MG/DL (7-18); CALCIUM LEVEL 8.6 MG/DL (8.8-10.2); CARBON DIOXIDE LEVEL 25 MEQ/L (21-32); CHLORIDE LEVEL 112 MEQ/L (98-107); CREATININE FOR GFR 1.21 MG/DL (0.55-1.30); GLOMERULAR FILTRATION RATE 46.3 (>39); GLUCOSE, FASTING 144 MG/DL (70-100); MAGNESIUM LEVEL 1.9 MG/DL (1.8-2.4); POTASSIUM SERUM 3.6 MEQ/L (3.5-5.1); SODIUM LEVEL 145 MEQ/L (136-145); TOTAL PROTEIN 5.1 GM/DL (6.4-8.2)
[2018-01-21] MEDS ORDERED: SUCRALFATE SUSP 1GM/10ML UD As Ordered (06:30)
[2018-01-21] MEDS ORDERED: PANTOPRAZOLE 40MG INJ (PROTONIX) (C9113) As Ordered (06:30)
[2018-01-21 06:40] LABS: BEDSIDE GLUCOSE 75 MG/DL (83-110)
[2018-01-21] MEDS: DEXTROSE 50% 50 ML SYRINGE IV (07:49)
[2018-01-21 08:26] LABS: BEDSIDE GLUCOSE 68 MG/DL (83-110)
[2018-01-21 08:26] LABS: BEDSIDE GLUCOSE 107 MG/DL (83-110)
[2018-01-21] MEDS: LEVEMIR (INSULIN DETEMIR) 1 UNITS/0.01ML SC ×2 (09:00→21:13)
[2018-01-21] MEDS: PRAVASTATIN 20 MG TAB PO (10:07)
[2018-01-21] MEDS: BENZONATATE 100 MG CAP PO ×2 (10:07→21:10)
[2018-01-21] MEDS: BISOPROLOL FUMARATE 5 MG TAB PO ×2 (10:08→21:12)
[2018-01-21] MEDS: EUCERIN 120GM CREAM TOP (10:08)
[2018-01-21] MEDS: DICYCLOMINE 10 MG CAP PO ×2 (10:08→21:12)
[2018-01-21 10:19] LABS: BEDSIDE GLUCOSE 76 MG/DL (83-110)
[2018-01-21 10:59] LABS: BEDSIDE GLUCOSE 120 MG/DL (83-110)
[2018-01-21] MEDS ORDERED: PHENYLephrine HCL 500 MCG/5 ML (100MCG/ML) SYRINGE (J2370) As Ordered ×2 (11:30→12:08)
[2018-01-21] MEDS ORDERED: PROPOFOL 200 MG/20 ML VIAL As Ordered (11:30)
[2018-01-21] MEDS ORDERED: LIDOCAINE 2% INJ 100 MG/5 ML SDV (FOR ANES.) As Ordered (11:30)
[2018-01-21] MEDS ORDERED: ePHEDrine INJ 50 MG/ML VIAL As Ordered ×2 (12:08)
[2018-01-21 12:53] LABS: BEDSIDE GLUCOSE 75 MG/DL (83-110)
[2018-01-21] MEDS ORDERED: ONDANSETRON 4MG/2ML VIAL (J2405) IV (13:00)
[2018-01-21] MEDS: LR 1,000 ML IV (13:00)
[2018-01-21 16:54] LABS: BEDSIDE GLUCOSE 306 MG/DL (83-110)
[2018-01-21] MEDS ORDERED: DEXTROSE 50% 50 ML SYRINGE IV (17:00)
[2018-01-21] MEDS ORDERED: GLUCAGON FOR INJ 1 MG VIAL (J1610) SC (17:00)
[2018-01-21] MEDS ORDERED: GLUCOSE 4 GM CHEW TABLET PO (17:00)
[2018-01-21] MEDS: FLUTICASONE PROP 0.05% NASAL SPRAY 16 GM (FLONASE) (21:12)
[2018-01-21 21:23] LABS: BEDSIDE GLUCOSE 166 MG/DL (83-110)
[2018-01-22 04:40] LABS: BEDSIDE GLUCOSE 66 MG/DL (83-110)
[2018-01-22] MEDS: PANTOPRAZOLE SODIUM 40 MG in D5W 50 ML IV ×4 (04:54→16:13)
[2018-01-22] MEDS: SUCRALFATE SUSP 1GM/10ML UD PO ×4 (05:02→23:42)
[2018-01-22 05:37] LABS: HEMATOCRIT 38.9 % (36.0-47.0); HEMOGLOBIN 12.8 g/dl (12.0-16.0); MEAN CORPUSCULAR HEMOGLOBIN 29.4 pg (27.0-33.0); MEAN CORPUSCULAR HGB CONC 32.9 g/dl (32.0-36.5); MEAN CORPUSCULAR VOLUME 89.2 fl (80.0-96.0); PLATELET COUNT, AUTOMATED 167 10^3/uL (150-450); RED BLOOD COUNT 4.36 10^6/uL (4.00-5.40); RED CELL DISTRIBUTION WIDTH 14.4 % (11.5-14.5); WHITE BLOOD COUNT 6.8 10^3/uL (4.0-10.0)
[2018-01-22 05:59] LABS: ALBUMIN 2.3 GM/DL (3.2-5.2); ALBUMIN/GLOBULIN RATIO 0.72 (1.00-1.93); ALKALINE PHOSPHATASE 101 U/L (45-117); ALT/SGPT 33 U/L (12-78); ANION GAP 7 MEQ/L (8-16); AST/SGOT 14 U/L (7-37); BILIRUBIN,TOTAL 0.7 MG/DL (0.2-1.0); BLOOD UREA NITROGEN 16 MG/DL (7-18); CARBON DIOXIDE LEVEL 25 MEQ/L (21-32); CHLORIDE LEVEL 111 MEQ/L (98-107); CREATININE FOR GFR 1.13 MG/DL (0.55-1.30); GLOMERULAR FILTRATION RATE 50.1 (>39); GLUCOSE, FASTING 72 MG/DL (70-100); MAGNESIUM LEVEL 1.6 MG/DL (1.8-2.4); POTASSIUM SERUM 3.2 MEQ/L (3.5-5.1); SODIUM LEVEL 143 MEQ/L (136-145); TOTAL PROTEIN 5.5 GM/DL (6.4-8.2)
[2018-01-22] MEDS: HumaLOG INSULIN (NovoLOG) PER UNIT SC ×4 (07:28→20:57)
[2018-01-22] MEDS: PRAVASTATIN 20 MG TAB PO (08:49)
[2018-01-22] MEDS: MAG SULF 1GM/100ML (MAG RUN) 1 GM in APPROPRIATE DILUENT 1 EA IV (08:49)
[2018-01-22] MEDS: POTASSIUM CHLORIDE 10 MEQ SR TABLET PO (08:49)
[2018-01-22] MEDS: BISOPROLOL FUMARATE 5 MG TAB PO ×2 (08:50→20:58)
[2018-01-22] MEDS: DICYCLOMINE 10 MG CAP PO ×2 (08:50→20:58)
[2018-01-22] MEDS: LEVEMIR (INSULIN DETEMIR) 1 UNITS/0.01ML SC ×2 (08:51→20:57)
[2018-01-22] MEDS: ACETAMINOPHEN TAB 650MG DOSE (2X325MG) PO (08:55)
[2018-01-22] MEDS: EUCERIN 120GM CREAM TOP (08:56)
[2018-01-22 12:00] LABS: BEDSIDE GLUCOSE 110 MG/DL (83-110)
[2018-01-22 17:13] LABS: BEDSIDE GLUCOSE 85 MG/DL (83-110)
[2018-01-22 20:47] LABS: BEDSIDE GLUCOSE 169 MG/DL (83-110)
[2018-01-22] MEDS: PANTOPRAZOLE 40MG TAB (PROTONIX) PO (20:58)
[2018-01-22] MEDS: FLUTICASONE PROP 0.05% NASAL SPRAY 16 GM (FLONASE) (20:59)
[2018-01-22] MEDS ORDERED: BENZONATATE 100 MG CAP PO (21:00)
[2018-01-23] MEDS: SUCRALFATE SUSP 1GM/10ML UD PO ×2 (05:43→12:04)
[2018-01-23 05:59] LABS: HEMATOCRIT 37.8 % (36.0-47.0); HEMOGLOBIN 12.4 g/dl (12.0-16.0); MEAN CORPUSCULAR HEMOGLOBIN 29.6 pg (27.0-33.0); MEAN CORPUSCULAR HGB CONC 32.8 g/dl (32.0-36.5); MEAN CORPUSCULAR VOLUME 90.2 fl (80.0-96.0); PLATELET COUNT, AUTOMATED 126 10^3/uL (150-450); RED BLOOD COUNT 4.19 10^6/uL (4.00-5.40); RED CELL DISTRIBUTION WIDTH 14.8 % (11.5-14.5); WHITE BLOOD COUNT 5.9 10^3/uL (4.0-10.0)
[2018-01-23 06:25] LABS: ALBUMIN 2.1 GM/DL (3.2-5.2); ALBUMIN/GLOBULIN RATIO 0.62 (1.00-1.93); ALKALINE PHOSPHATASE 108 U/L (45-117); ALT/SGPT 29 U/L (12-78); ANION GAP 7 MEQ/L (8-16); AST/SGOT 20 U/L (7-37); BILIRUBIN,TOTAL 0.5 MG/DL (0.2-1.0); BLOOD UREA NITROGEN 17 MG/DL (7-18); CALCIUM LEVEL 9.2 MG/DL (8.8-10.2); CARBON DIOXIDE LEVEL 21 MEQ/L (21-32); CHLORIDE LEVEL 112 MEQ/L (98-107); CREATININE FOR GFR 1.28 MG/DL (0.55-1.30); GLOMERULAR FILTRATION RATE 43.4 (>39); GLUCOSE, FASTING 83 MG/DL (70-100); MAGNESIUM LEVEL 1.5 MG/DL (1.8-2.4); POTASSIUM SERUM 3.8 MEQ/L (3.5-5.1); SODIUM LEVEL 140 MEQ/L (136-145); TOTAL PROTEIN 5.5 GM/DL (6.4-8.2)
[2018-01-23] MEDS: HumaLOG INSULIN (NovoLOG) PER UNIT SC (07:35)
[2018-01-23] MEDS: PRAVASTATIN 20 MG TAB PO (08:52)
[2018-01-23] MEDS: FLUTICASONE PROP 0.05% NASAL SPRAY 16 GM (FLONASE) (08:52)
[2018-01-23] MEDS: DICYCLOMINE 10 MG CAP PO (08:53)
[2018-01-23] MEDS: MAG SULF 1GM/100ML (MAG RUN) 1 GM in APPROPRIATE DILUENT 1 EA IV (08:53)
[2018-01-23] MEDS: BISOPROLOL FUMARATE 5 MG TAB PO (08:53)
[2018-01-23] MEDS: PANTOPRAZOLE 40MG TAB (PROTONIX) PO (08:53)
[2018-01-23] MEDS: LEVEMIR (INSULIN DETEMIR) 1 UNITS/0.01ML SC (08:54)
[2018-01-23] MEDS: EUCERIN 120GM CREAM TOP (08:54)
== END 2018-01-23 12:36 | DRG 813 ==
LOC: M ED 10:39 → M ED INP 15:42 → M PCU 23:36
PROC: 0DBH8ZX Excision of Cecum, Via Natural or Artificial Opening Endoscopic, Diagnostic (ICD-10-PCS; principal; 2018-01-21 11:19)
PROC: 0DBK8ZX Excision of Ascending Colon, Via Natural or Artificial Opening Endoscopic, Diagnostic (ICD-10-PCS; 2018-01-21 11:19)
PROC: 0DBL8ZX Excision of Transverse Colon, Via Natural or Artificial Opening Endoscopic, Diagnostic (ICD-10-PCS; 2018-01-21 11:19)
PROC: 0DB78ZX Excision of Stomach, Pylorus, Via Natural or Artificial Opening Endoscopic, Diagnostic (ICD-10-PCS; 2018-01-21 11:19)
DX: D68.32 Hemorrhagic disorder due to extrinsic circulating anticoagulants (principal); I50.32 Chronic diastolic (congestive) heart failure; I13.0 Hypertensive heart and chronic kidney disease with heart failure and stage 1 through stage 4 chronic kidney disease, or unspecified chronic kidney disease; K92.2 Gastrointestinal hemorrhage, unspecified; I48.2 Chronic atrial fibrillation; N18.3 Chronic kidney disease, stage 3 (moderate); E78.5 Hyperlipidemia, unspecified; D12.0 Benign neoplasm of cecum; K57.30 Diverticulosis of large intestine without perforation or abscess without bleeding; Z66 Do not resuscitate; K64.8 Other hemorrhoids; K64.4 Residual hemorrhoidal skin tags; K44.9 Diaphragmatic hernia without obstruction or gangrene; E11.22 Type 2 diabetes mellitus with diabetic chronic kidney disease; K25.9 Gastric ulcer, unspecified as acute or chronic, without hemorrhage or perforation; K29.80 Duodenitis without bleeding; D12.2 Benign neoplasm of ascending colon; D12.4 Benign neoplasm of descending colon; Z79.4 Long term (current) use of insulin; Z88.1 Allergy status to other antibiotic agents; Z79.899 Other long term (current) drug therapy; Z79.01 Long term (current) use of anticoagulants; Z95.0 Presence of cardiac pacemaker

== ENCOUNTER → 2018-01-31 | Outpatient (REF) | payer MEDICAID, MEDICARE ==
[2018-01-31 08:05] LABS: HEMATOCRIT 43.5 % (36.0-47.0); HEMOGLOBIN 14.2 g/dl (12.0-16.0); MEAN CORPUSCULAR HEMOGLOBIN 29.7 pg (27.0-33.0); MEAN CORPUSCULAR HGB CONC 32.6 g/dl (32.0-36.5); PLATELET COUNT, AUTOMATED 155 10^3/uL (150-450); RED BLOOD COUNT 4.78 10^6/uL (4.00-5.40); RED CELL DISTRIBUTION WIDTH 14.6 % (11.5-14.5); WHITE BLOOD COUNT 5.6 10^3/uL (4.0-10.0)
== END ==
DX: D64.9 Anemia, unspecified (principal)

== ENCOUNTER 2018-02-05 13:10 | Outpatient (REF) ==
[2018-02-07 12:20] LABS: HEMOGLOBIN 12.4 g/dl (12.0-16.0); MEAN CORPUSCULAR HEMOGLOBIN 30.1 pg (27.0-33.0); MEAN CORPUSCULAR HGB CONC 32.6 g/dl (32.0-36.5); MEAN CORPUSCULAR VOLUME 92.2 fl (80.0-96.0); PLATELET COUNT, AUTOMATED 138 10^3/uL (150-450); RED BLOOD COUNT 4.12 10^6/uL (4.00-5.40); WHITE BLOOD COUNT 15.3 10^3/uL (4.0-10.0)
[2018-02-07 12:52] LABS: ANION GAP 14 MEQ/L (8-16); BLOOD UREA NITROGEN 43 MG/DL (7-18); CALCIUM LEVEL 9.3 MG/DL (8.8-10.2); CARBON DIOXIDE LEVEL 21 MEQ/L (21-32); CHLORIDE LEVEL 99 MEQ/L (98-107); CREATININE FOR GFR 2.43 MG/DL (0.55-1.30); GLOMERULAR FILTRATION RATE 20.7 (>39); POTASSIUM SERUM 4.3 MEQ/L (3.5-5.1); SODIUM LEVEL 134 MEQ/L (136-145)
[2018-02-07 13:47] LABS: GLUCOSE, FASTING 556 MG/DL (70-100)
[2018-02-07 19:34] LABS: INFLUENZA A AMPLIFICATION NEGATIVE (NEGATIVE); INFLUENZA B AMPLIFICATION NEGATIVE (NEGATIVE)
== END 2018-02-07 ==
DX: D64.9 Anemia, unspecified (principal)

== ENCOUNTER 2018-02-07 16:59 | Observation (INO) | payer MEDICARE, MEDICAID ==
[2018-02-07] MEDS ORDERED: METAL LOCK LOOP XX (17:44)
[2018-02-07 18:23] LABS: APPEARANCE, URINE TURBID (CLEAR); BACTERIA, URINE AUTO 2+ (NEGATIVE); BILIRUBIN, URINE AUTO NEGATIVE (NEGATIVE); BLOOD, URINE BLOOD 2+ (NEGATIVE); COLOR, URINE AMBER (YELLOW); GLUCOSE, URINE (UA) AUTO 2+ mg/dL (NEGATIVE); KETONE, URINE AUTO NEGATIVE (NEGATIVE); LEUKOCYTE ESTERASE, URINE AUTO 3+ (NEGATIVE); NITRITE, URINE AUTO NEGATIVE (NEGATIVE); PROTEIN, URINE AUTO 1+ mg/dL (NEGATIVE); RBC, URINE AUTO 23 /HPF (0-3); SPECIFIC GRAVITY URINE AUTO 1.015 (1.002-1.035); SQUAMOUS EPITHELIAL CELL UR AU 1 /HPF (0-6); TRANSITIONAL EPITHELIAL AUTO 2 /HPF; UROBILINOGEN, URINE AUTO 0.2 mg/dL (0.0-2.0); WBC, URINE AUTO TNTC /HPF (0-3)
[2018-02-07 18:43] LABS: HEMATOCRIT 36.8 % (36.0-47.0); MEAN CORPUSCULAR HEMOGLOBIN 29.7 pg (27.0-33.0); MEAN CORPUSCULAR HGB CONC 32.6 g/dl (32.0-36.5); MEAN CORPUSCULAR VOLUME 91.1 fl (80.0-96.0); RED BLOOD COUNT 4.04 10^6/uL (4.00-5.40)
[2018-02-07 18:52] LABS: ANION GAP 8 MEQ/L (8-16); BLOOD UREA NITROGEN 45 MG/DL (7-18); CALCIUM LEVEL 9.4 MG/DL (8.8-10.2); CARBON DIOXIDE LEVEL 26 MEQ/L (21-32); CHLORIDE LEVEL 100 MEQ/L (98-107); CREATININE FOR GFR 2.34 MG/DL (0.55-1.30); GLOMERULAR FILTRATION RATE 21.6 (>39); GLUCOSE, FASTING 399 MG/DL (70-100); POTASSIUM SERUM 4.5 MEQ/L (3.5-5.1); SODIUM LEVEL 134 MEQ/L (136-145)
[2018-02-07 18:59] LABS: LACTIC ACID SEPSIS PROTOCOL 3.7 MMOL/L (0.4-2.0)
[2018-02-07 19:06] LABS: ADD MANUAL DIFFER YES; DIFF SLIDE NUMBER 307; PLATELET COUNT, AUTOMATED 98 10^3/uL (150-450)
[2018-02-07 19:07] LABS: IMMATURE PLATELET FRACTION % 5.1 % (0.0-9.6)
[2018-02-07 19:09] LABS: BANDS 7 % (< 11); LYMPHOCYTES 2 % (16-52); MONOCYTES 3 % (0-8); NEUTROPHILS 88 % (35-75)
[2018-02-07 19:10] LABS: PLATELET ESTIMATE DECREASED (NORMAL)
[2018-02-07] MEDS: NS 1,000 ML IV (19:30)
[2018-02-07] MEDS: CIPROFLOXACIN 200 MG in APPROPRIATE DILUENT 1 EA IV (20:07)
[2018-02-07] MEDS: DILUENT IV (22:03)
[2018-02-07] MEDS: NS IV (22:03)
[2018-02-07] MEDS ORDERED: NITROGLYCERIN 0.4 MG SUBL TABLET SL (23:00)
[2018-02-07] MEDS ORDERED: ONDANSETRON 4MG/2ML VIAL (J2405) IV (23:00)
[2018-02-07] MEDS ORDERED: BISACODYL 10 MG SUPP PR (23:00)
[2018-02-08] MEDS: LEVEMIR (INSULIN DETEMIR) 1 UNITS/0.01ML SC ×3 (00:45→20:28)
[2018-02-08] MEDS: PANTOPRAZOLE 40MG TAB (PROTONIX) PO ×3 (00:45→20:29)
[2018-02-08] MEDS: MAGNESIUM OXIDE 400 MG TAB (MAG-OX) PO ×3 (00:45→20:29)
[2018-02-08] MEDS: RIVAROXABAN 15 MG TAB (XARELTO) PO ×2 (00:45→18:20)
[2018-02-08] MEDS: NS 1,000 ML IV ×3 (00:46→20:29)
[2018-02-08] MEDS: BISOPROLOL FUMARATE 5 MG TAB PO ×3 (00:46→20:29)
[2018-02-08 04:03] LABS: LACTIC ACID SEPSIS PROTOCOL 1.6 MMOL/L (0.4-2.0)
[2018-02-08 06:09] LABS: HEMATOCRIT 32.9 % (36.0-47.0); HEMOGLOBIN 10.8 g/dl (12.0-16.0); MEAN CORPUSCULAR HEMOGLOBIN 29.9 pg (27.0-33.0); MEAN CORPUSCULAR HGB CONC 32.8 g/dl (32.0-36.5); MEAN CORPUSCULAR VOLUME 91.1 fl (80.0-96.0); RED BLOOD COUNT 3.61 10^6/uL (4.00-5.40); RED CELL DISTRIBUTION WIDTH 15.2 % (11.5-14.5); WHITE BLOOD COUNT 5.5 10^3/uL (4.0-10.0)
[2018-02-08 06:30] LABS: PLATELET COUNT, AUTOMATED 90 10^3/uL (150-450)
[2018-02-08 06:31] LABS: ANION GAP 10 MEQ/L (8-16); BLOOD UREA NITROGEN 40 MG/DL (7-18); CALCIUM LEVEL 8.3 MG/DL (8.8-10.2); CARBON DIOXIDE LEVEL 21 MEQ/L (21-32); CHLORIDE LEVEL 109 MEQ/L (98-107); GLOMERULAR FILTRATION RATE 29.3 (>39); GLUCOSE, FASTING 264 MG/DL (70-100); POTASSIUM SERUM 3.9 MEQ/L (3.5-5.1); SODIUM LEVEL 140 MEQ/L (136-145)
[2018-02-08] MEDS: PRAVASTATIN 20 MG TAB PO (09:51)
[2018-02-08] MEDS: CIPROFLOXACIN 200 MG in APPROPRIATE DILUENT 1 EA IV ×2 (09:53→20:30)
[2018-02-08] MEDS: EUCERIN 120GM CREAM TOP (09:54)
[2018-02-08] MEDS ORDERED: DEXTROSE 50% 50 ML SYRINGE IV (13:00)
[2018-02-08] MEDS ORDERED: GLUCAGON FOR INJ 1 MG VIAL (J1610) SC (13:00)
[2018-02-08] MEDS ORDERED: GLUCOSE 4 GM CHEW TABLET PO (13:00)
[2018-02-08] MEDS: HumaLOG INSULIN (NovoLOG) PER UNIT SC ×3 (13:58→20:28)
[2018-02-08] MEDS ORDERED: HumaLOG INSULIN (NovoLOG) PER UNIT SC (17:30)
[2018-02-08] MEDS: FLUTICASONE PROP 0.05% NASAL SPRAY 16 GM (FLONASE) (20:28)
[2018-02-08] MEDS: ACETAMINOPHEN TAB 650MG DOSE (2X325MG) PO (23:36)
[2018-02-09] MEDS: NS 1,000 ML IV (04:46)
[2018-02-09 07:06] LABS: HEMATOCRIT 33.3 % (36.0-47.0); HEMOGLOBIN 10.9 g/dl (12.0-16.0); MEAN CORPUSCULAR HEMOGLOBIN 30.1 pg (27.0-33.0); MEAN CORPUSCULAR HGB CONC 32.7 g/dl (32.0-36.5); RED BLOOD COUNT 3.62 10^6/uL (4.00-5.40); RED CELL DISTRIBUTION WIDTH 15.4 % (11.5-14.5); WHITE BLOOD COUNT 3.9 10^3/uL (4.0-10.0)
[2018-02-09 07:08] LABS: IMMATURE PLATELET FRACTION % 4.6 % (0.0-9.6); PLATELET COUNT, AUTOMATED 90 10^3/uL (150-450)
[2018-02-09 07:26] LABS: ANION GAP 6 MEQ/L (8-16); BLOOD UREA NITROGEN 35 MG/DL (7-18); CALCIUM LEVEL 8.8 MG/DL (8.8-10.2); CARBON DIOXIDE LEVEL 23 MEQ/L (21-32); CHLORIDE LEVEL 113 MEQ/L (98-107); CREATININE FOR GFR 1.44 MG/DL (0.55-1.30); GLOMERULAR FILTRATION RATE 37.9 (>39); GLUCOSE, FASTING 150 MG/DL (70-100); MAGNESIUM LEVEL 1.8 MG/DL (1.8-2.4); POTASSIUM SERUM 3.8 MEQ/L (3.5-5.1); SODIUM LEVEL 142 MEQ/L (136-145)
[2018-02-09] MEDS: HumaLOG INSULIN (NovoLOG) PER UNIT SC ×2 (07:30→12:00)
[2018-02-09] MEDS: CIPROFLOXACIN 200 MG in APPROPRIATE DILUENT 1 EA IV (08:53)
[2018-02-09] MEDS: MAGNESIUM OXIDE 400 MG TAB (MAG-OX) PO (08:54)
[2018-02-09] MEDS: PANTOPRAZOLE 40MG TAB (PROTONIX) PO (08:54)
[2018-02-09] MEDS: LEVEMIR (INSULIN DETEMIR) 1 UNITS/0.01ML SC (08:54)
[2018-02-09] MEDS: OSELTAMIVIR PHOSPHATE 30MG CAPSULE PO (08:54)
[2018-02-09] MEDS: PRAVASTATIN 20 MG TAB PO (08:54)
[2018-02-09] MEDS: BISOPROLOL FUMARATE 5 MG TAB PO (08:54)
[2018-02-09] MEDS: EUCERIN 120GM CREAM TOP (08:55)
[2018-02-12 12:04] LABS: BEDSIDE GLUCOSE 244 MG/DL (83-110)
[2018-02-12 12:05] LABS: BEDSIDE GLUCOSE 251 MG/DL (83-110)
[2018-02-12 12:05] LABS: BEDSIDE GLUCOSE 272 MG/DL (83-110)
[2018-02-12 12:05] LABS: BEDSIDE GLUCOSE 255 MG/DL (83-110)
[2018-02-12 12:05] LABS: BEDSIDE GLUCOSE 337 MG/DL (83-110)
== END 2018-02-09 13:20 | disposition other institution (70) ==
LOC: M MS5PR 02-08 00:26 → M ED 16:59 → M ED INP 22:46
DX: R50.9 Fever, unspecified (principal); D72.829 Elevated white blood cell count, unspecified; I48.91 Unspecified atrial fibrillation; I11.0 Hypertensive heart disease with heart failure; E11.9 Type 2 diabetes mellitus without complications; Z95.0 Presence of cardiac pacemaker; I49.5 Sick sinus syndrome; Z79.4 Long term (current) use of insulin; Z79.899 Other long term (current) drug therapy; K21.9 Gastro-esophageal reflux disease without esophagitis; Z88.1 Allergy status to other antibiotic agents; Z79.02 Long term (current) use of antithrombotics/antiplatelets; I50.30 Unspecified diastolic (congestive) heart failure
CPT/HCPCS: J0744

== ENCOUNTER → 2018-02-13 | Outpatient (REF) ==
[2018-02-13 10:21] LABS: HEMATOCRIT 36.8 % (36.0-47.0); HEMOGLOBIN 11.9 g/dl (12.0-16.0); MEAN CORPUSCULAR HEMOGLOBIN 29.5 pg (27.0-33.0); MEAN CORPUSCULAR HGB CONC 32.3 g/dl (32.0-36.5); MEAN CORPUSCULAR VOLUME 91.1 fl (80.0-96.0); PLATELET COUNT, AUTOMATED 153 10^3/uL (150-450); RED BLOOD COUNT 4.04 10^6/uL (4.00-5.40); RED CELL DISTRIBUTION WIDTH 15.3 % (11.5-14.5); WHITE BLOOD COUNT 6.3 10^3/uL (4.0-10.0)
[2018-02-13 11:11] LABS: ANION GAP 12 MEQ/L (8-16); BLOOD UREA NITROGEN 25 MG/DL (7-18); CALCIUM LEVEL 9.1 MG/DL (8.8-10.2); CARBON DIOXIDE LEVEL 19 MEQ/L (21-32); CHLORIDE LEVEL 113 MEQ/L (98-107); CREATININE FOR GFR 1.29 MG/DL (0.55-1.30); GLUCOSE, FASTING 128 MG/DL (70-100); SODIUM LEVEL 144 MEQ/L (136-145)
== END ==
DX: I50.9 Heart failure, unspecified (principal)

== ENCOUNTER → 2018-02-14 | Outpatient (REF) ==
[2018-02-14 15:57] LABS: HEMATOCRIT 34.7 % (36.0-47.0); HEMOGLOBIN 11.3 g/dl (12.0-16.0); MEAN CORPUSCULAR HEMOGLOBIN 29.9 pg (27.0-33.0); MEAN CORPUSCULAR HGB CONC 32.6 g/dl (32.0-36.5); MEAN CORPUSCULAR VOLUME 91.8 fl (80.0-96.0); PLATELET COUNT, AUTOMATED 153 10^3/uL (150-450); RED BLOOD COUNT 3.78 10^6/uL (4.00-5.40); RED CELL DISTRIBUTION WIDTH 15.8 % (11.5-14.5); WHITE BLOOD COUNT 5.6 10^3/uL (4.0-10.0)
[2018-02-14 16:17] LABS: ANION GAP 10 MEQ/L (8-16); BLOOD UREA NITROGEN 25 MG/DL (7-18); CALCIUM LEVEL 8.3 MG/DL (8.8-10.2); CARBON DIOXIDE LEVEL 18 MEQ/L (21-32); CHLORIDE LEVEL 116 MEQ/L (98-107); CREATININE FOR GFR 1.19 MG/DL (0.55-1.30); GLOMERULAR FILTRATION RATE 47.2 (>39); GLUCOSE, FASTING 88 MG/DL (70-100); POTASSIUM SERUM 3.8 MEQ/L (3.5-5.1); SODIUM LEVEL 144 MEQ/L (136-145)
== END ==
DX: R19.7 Diarrhea, unspecified (principal)

== ENCOUNTER → 2018-02-16 | Outpatient (REF) | payer MEDICARE, MEDICAID ==
[2018-02-16 10:47] LABS: HEMATOCRIT 37.3 % (36.0-47.0); HEMOGLOBIN 11.6 g/dl (12.0-16.0); MEAN CORPUSCULAR HEMOGLOBIN 29.1 pg (27.0-33.0); MEAN CORPUSCULAR HGB CONC 31.1 g/dl (32.0-36.5); MEAN CORPUSCULAR VOLUME 93.5 fl (80.0-96.0); PLATELET COUNT, AUTOMATED 171 10^3/uL (150-450); RED BLOOD COUNT 3.99 10^6/uL (4.00-5.40); RED CELL DISTRIBUTION WIDTH 16.1 % (11.5-14.5); WHITE BLOOD COUNT 4.8 10^3/uL (4.0-10.0)
[2018-02-16 11:02] LABS: ANION GAP 6 MEQ/L (8-16); BLOOD UREA NITROGEN 24 MG/DL (7-18); CALCIUM LEVEL 8.9 MG/DL (8.8-10.2); CARBON DIOXIDE LEVEL 24 MEQ/L (21-32); CHLORIDE LEVEL 117 MEQ/L (98-107); CREATININE FOR GFR 1.11 MG/DL (0.55-1.30); GLOMERULAR FILTRATION RATE 51.2 (>39); GLUCOSE, FASTING 99 MG/DL (70-100); SODIUM LEVEL 147 MEQ/L (136-145)
== END ==
DX: I50.9 Heart failure, unspecified (principal)
CPT/HCPCS: 80048

== ENCOUNTER → 2018-02-20 | Outpatient (REF) | payer MEDICARE, MEDICAID ==
[2018-02-20 09:42] LABS: HEMATOCRIT 36.4 % (36.0-47.0); HEMOGLOBIN 11.6 g/dl (12.0-16.0); MEAN CORPUSCULAR HEMOGLOBIN 28.6 pg (27.0-33.0); MEAN CORPUSCULAR HGB CONC 31.9 g/dl (32.0-36.5); MEAN CORPUSCULAR VOLUME 89.9 fl (80.0-96.0); PLATELET COUNT, AUTOMATED 179 10^3/uL (150-450); RED BLOOD COUNT 4.05 10^6/uL (4.00-5.40); WHITE BLOOD COUNT 5.2 10^3/uL (4.0-10.0)
[2018-02-20 10:03] LABS: ANION GAP 10 MEQ/L (8-16); BLOOD UREA NITROGEN 24 MG/DL (7-18); CALCIUM LEVEL 9.6 MG/DL (8.8-10.2); CARBON DIOXIDE LEVEL 23 MEQ/L (21-32); CHLORIDE LEVEL 112 MEQ/L (98-107); CREATININE FOR GFR 1.14 MG/DL (0.55-1.30); GLOMERULAR FILTRATION RATE 49.6 (>39); GLUCOSE, FASTING 109 MG/DL (70-100); POTASSIUM SERUM 4.1 MEQ/L (3.5-5.1); SODIUM LEVEL 145 MEQ/L (136-145)
== END ==
DX: I50.9 Heart failure, unspecified (principal)
CPT/HCPCS: 80048

== ENCOUNTER → 2018-02-23 | Outpatient (REF) | payer MEDICARE, MEDICAID ==
[2018-02-23 10:19] LABS: HEMATOCRIT 40.3 % (36.0-47.0); HEMOGLOBIN 12.8 g/dl (12.0-15.5); MEAN CORPUSCULAR HEMOGLOBIN 29.3 pg (27.0-33.0); MEAN CORPUSCULAR HGB CONC 31.8 g/dl (32.0-36.5); MEAN CORPUSCULAR VOLUME 92.2 fl (80.0-96.0); PLATELET COUNT, AUTOMATED 208 10^3/uL (150-450); RED BLOOD COUNT 4.37 10^6/uL (4.00-5.40); RED CELL DISTRIBUTION WIDTH 16.5 % (11.5-14.5); WHITE BLOOD COUNT 5.3 10^3/uL (4.0-10.0)
[2018-02-23 10:42] LABS: ANION GAP 8 MEQ/L (8-16); BLOOD UREA NITROGEN 28 MG/DL (7-18); CALCIUM LEVEL 9.4 MG/DL (8.8-10.2); CARBON DIOXIDE LEVEL 22 MEQ/L (21-32); CHLORIDE LEVEL 112 MEQ/L (98-107); GLOMERULAR FILTRATION RATE 42.6 (>39); GLUCOSE, FASTING 129 MG/DL (70-100); POTASSIUM SERUM 4.1 MEQ/L (3.5-5.1); SODIUM LEVEL 142 MEQ/L (136-145)
== END ==
DX: I50.9 Heart failure, unspecified (principal)
CPT/HCPCS: 80048

== ENCOUNTER → 2018-02-27 | Outpatient (REF) | payer MEDICARE, MEDICAID ==
[2018-02-27 10:27] LABS: HEMOGLOBIN 11.6 g/dl (12.0-15.5); MEAN CORPUSCULAR HEMOGLOBIN 28.7 pg (27.0-33.0); MEAN CORPUSCULAR HGB CONC 31.4 g/dl (32.0-36.5); MEAN CORPUSCULAR VOLUME 91.6 fl (80.0-96.0); PLATELET COUNT, AUTOMATED 173 10^3/uL (150-450); RED BLOOD COUNT 4.04 10^6/uL (4.00-5.40)
[2018-02-27 10:46] LABS: ANION GAP 6 MEQ/L (8-16); BLOOD UREA NITROGEN 29 MG/DL (7-18); CALCIUM LEVEL 9.3 MG/DL (8.8-10.2); CARBON DIOXIDE LEVEL 25 MEQ/L (21-32); CHLORIDE LEVEL 109 MEQ/L (98-107); CREATININE FOR GFR 1.22 MG/DL (0.55-1.30); GLOMERULAR FILTRATION RATE 45.9 (>39); GLUCOSE, FASTING 226 MG/DL (70-100); POTASSIUM SERUM 4.7 MEQ/L (3.5-5.1); SODIUM LEVEL 140 MEQ/L (136-145)
== END ==
DX: I50.9 Heart failure, unspecified (principal)
CPT/HCPCS: 80048

== ENCOUNTER → 2018-03-13 | Outpatient (REF) | payer MEDICARE, MEDICAID ==
[2018-03-13 09:53] LABS: BEDSIDE GLUCOSE CONFIRMATION 649 MG/DL (LESS THAN 200)
== END ==
DX: E11.65 Type 2 diabetes mellitus with hyperglycemia (principal)
CPT/HCPCS: 82947

== ENCOUNTER → 2018-03-16 | Outpatient (REF) | payer MEDICARE, MEDICAID ==
[2018-03-16 11:21] LABS: ANION GAP 6 MEQ/L (8-16); BLOOD UREA NITROGEN 45 MG/DL (7-18); CALCIUM LEVEL 9.8 MG/DL (8.8-10.2); CARBON DIOXIDE LEVEL 29 MEQ/L (21-32); CHLORIDE LEVEL 106 MEQ/L (98-107); CREATININE FOR GFR 1.45 MG/DL (0.55-1.30); GLOMERULAR FILTRATION RATE 37.5 (>39); GLUCOSE, FASTING 113 MG/DL (70-100); POTASSIUM SERUM 4.4 MEQ/L (3.5-5.1); SODIUM LEVEL 141 MEQ/L (136-145)
== END ==
DX: I50.9 Heart failure, unspecified (principal)
CPT/HCPCS: 80048

== ENCOUNTER → 2018-03-20 | Outpatient (REF) | payer MEDICARE, MEDICAID ==
[2018-03-20 11:41] LABS: ANION GAP 8 MEQ/L (8-16); BLOOD UREA NITROGEN 38 MG/DL (7-18); CALCIUM LEVEL 9.8 MG/DL (8.8-10.2); CARBON DIOXIDE LEVEL 21 MEQ/L (21-32); CHLORIDE LEVEL 111 MEQ/L (98-107); CREATININE FOR GFR 1.42 MG/DL (0.55-1.30); GLOMERULAR FILTRATION RATE 38.4 (>39); GLUCOSE, FASTING 195 MG/DL (70-100); POTASSIUM SERUM 4.2 MEQ/L (3.5-5.1); SODIUM LEVEL 140 MEQ/L (136-145)
== END ==
DX: I50.9 Heart failure, unspecified (principal)
CPT/HCPCS: 80048

== ENCOUNTER → 2018-03-27 | Outpatient (REF) | payer MEDICARE, MEDICAID ==
[2018-03-27 10:37] LABS: HEMATOCRIT 38.3 % (36.0-47.0); HEMOGLOBIN 12.2 g/dl (12.0-15.5); MEAN CORPUSCULAR HEMOGLOBIN 28.9 pg (27.0-33.0); MEAN CORPUSCULAR HGB CONC 31.9 g/dl (32.0-36.5); MEAN CORPUSCULAR VOLUME 90.8 fl (80.0-96.0); PLATELET COUNT, AUTOMATED 129 10^3/uL (150-450); RED BLOOD COUNT 4.22 10^6/uL (4.00-5.40); RED CELL DISTRIBUTION WIDTH 14.9 % (11.5-14.5); WHITE BLOOD COUNT 4.2 10^3/uL (4.0-10.0)
[2018-03-27 11:03] LABS: ANION GAP 6 MEQ/L (8-16); BLOOD UREA NITROGEN 30 MG/DL (7-18); CARBON DIOXIDE LEVEL 25 MEQ/L (21-32); CHLORIDE LEVEL 111 MEQ/L (98-107); CREATININE FOR GFR 1.39 MG/DL (0.55-1.30); GLOMERULAR FILTRATION RATE 39.3 (>39); GLUCOSE, FASTING 249 MG/DL (70-100); POTASSIUM SERUM 4.8 MEQ/L (3.5-5.1); SODIUM LEVEL 142 MEQ/L (136-145)
== END ==
DX: I50.9 Heart failure, unspecified (principal)
CPT/HCPCS: 80048

== ENCOUNTER → 2018-04-17 | Outpatient (CLI) | payer MEDICARE, MEDICAID | LOC: M WHC 12:36 | DX: Z12.31 Encounter for screening mammogram for malignant neoplasm of breast (principal); Z78.0 Asymptomatic menopausal state; I50.9 Heart failure, unspecified; Z80.3 Family history of malignant neoplasm of breast | CPT/HCPCS: 80048 ==

== ENCOUNTER → 2018-04-17 | Outpatient (REF) | payer MEDICARE, MEDICAID ==
[2018-04-17 11:56] LABS: HEMATOCRIT 38.4 % (36.0-47.0); HEMOGLOBIN 11.8 g/dl (12.0-15.5); MEAN CORPUSCULAR HEMOGLOBIN 28.3 pg (27.0-33.0); MEAN CORPUSCULAR HGB CONC 30.7 g/dl (32.0-36.5); MEAN CORPUSCULAR VOLUME 92.1 fl (80.0-96.0); PLATELET COUNT, AUTOMATED 148 10^3/uL (150-450); RED BLOOD COUNT 4.17 10^6/uL (4.00-5.40); RED CELL DISTRIBUTION WIDTH 15.3 % (11.5-14.5)
[2018-04-17 12:28] LABS: ANION GAP 7 MEQ/L (8-16); BLOOD UREA NITROGEN 37 MG/DL (7-18); CALCIUM LEVEL 9.3 MG/DL (8.8-10.2); CARBON DIOXIDE LEVEL 25 MEQ/L (21-32); CHLORIDE LEVEL 112 MEQ/L (98-107); CREATININE FOR GFR 1.51 MG/DL (0.55-1.30); GLOMERULAR FILTRATION RATE 35.8 (>39); GLUCOSE, FASTING 146 MG/DL (70-100); POTASSIUM SERUM 4.8 MEQ/L (3.5-5.1); SODIUM LEVEL 144 MEQ/L (136-145)
== END ==
DX: I50.9 Heart failure, unspecified (principal)

== ENCOUNTER → 2018-05-01 | Outpatient (REF) | payer MEDICARE, MEDICAID ==
[2018-05-01 10:20] LABS: HEMATOCRIT 42.9 % (36.0-47.0); HEMOGLOBIN 12.6 g/dl (12.0-15.5); MEAN CORPUSCULAR HGB CONC 29.4 g/dl (32.0-36.5); MEAN CORPUSCULAR VOLUME 91.9 fl (80.0-96.0); PLATELET COUNT, AUTOMATED 184 10^3/uL (150-450); RED BLOOD COUNT 4.67 10^6/uL (4.00-5.40); RED CELL DISTRIBUTION WIDTH 15.5 % (11.5-14.5); WHITE BLOOD COUNT 7.2 10^3/uL (4.0-10.0)
[2018-05-01 10:47] LABS: ANION GAP 10 MEQ/L (8-16); BLOOD UREA NITROGEN 36 MG/DL (7-18); CALCIUM LEVEL 9.7 MG/DL (8.8-10.2); CARBON DIOXIDE LEVEL 24 MEQ/L (21-32); CHLORIDE LEVEL 107 MEQ/L (98-107); CREATININE FOR GFR 1.53 MG/DL (0.55-1.30); GLOMERULAR FILTRATION RATE 35.2 (>39); GLUCOSE, FASTING 70 MG/DL (70-100); NT-PRO BNP 3748 PG/ML (<450); POTASSIUM SERUM 4.2 MEQ/L (3.5-5.1); SODIUM LEVEL 141 MEQ/L (136-145)
[2018-05-01 11:26] LABS: ESTIMATED AVERAGE GLUCOSE 163 MG/DL (60-110); HEMOGLOBIN A1c 7.3 %
== END ==
DX: E11.9 Type 2 diabetes mellitus without complications (principal)
CPT/HCPCS: 83036

== ENCOUNTER → 2018-05-08 | Outpatient (REF) | payer MEDICARE, MEDICAID ==
[2018-05-08 09:42] LABS: HEMATOCRIT 39.9 % (36.0-47.0); HEMOGLOBIN 11.8 g/dl (12.0-15.5); MEAN CORPUSCULAR HEMOGLOBIN 26.8 pg (27.0-33.0); MEAN CORPUSCULAR HGB CONC 29.6 g/dl (32.0-36.5); MEAN CORPUSCULAR VOLUME 90.7 fl (80.0-96.0); PLATELET COUNT, AUTOMATED 155 10^3/uL (150-450); RED CELL DISTRIBUTION WIDTH 15.4 % (11.5-14.5); WHITE BLOOD COUNT 4.8 10^3/uL (4.0-10.0)
[2018-05-08 10:11] LABS: ANION GAP 6 MEQ/L (8-16); BLOOD UREA NITROGEN 45 MG/DL (7-18); CALCIUM LEVEL 9.3 MG/DL (8.8-10.2); CARBON DIOXIDE LEVEL 26 MEQ/L (21-32); CHLORIDE LEVEL 112 MEQ/L (98-107); CREATININE FOR GFR 1.42 MG/DL (0.55-1.30); GLOMERULAR FILTRATION RATE 38.4 (>39); GLUCOSE, FASTING 166 MG/DL (70-100); NT-PRO BNP 2614 PG/ML (<450); SODIUM LEVEL 144 MEQ/L (136-145)
== END ==
DX: N18.9 Chronic kidney disease, unspecified (principal); I50.9 Heart failure, unspecified
CPT/HCPCS: 80048

== ENCOUNTER → 2018-05-15 | Outpatient (REF) | payer MEDICARE, MEDICAID ==
[2018-05-15 11:26] LABS: HEMOGLOBIN 11.8 g/dl (12.0-15.5); MEAN CORPUSCULAR HEMOGLOBIN 26.8 pg (27.0-33.0); MEAN CORPUSCULAR HGB CONC 29.5 g/dl (32.0-36.5); MEAN CORPUSCULAR VOLUME 90.7 fl (80.0-96.0); PLATELET COUNT, AUTOMATED 171 10^3/uL (150-450); RED BLOOD COUNT 4.41 10^6/uL (4.00-5.40); RED CELL DISTRIBUTION WIDTH 15.7 % (11.5-14.5); WHITE BLOOD COUNT 5.5 10^3/uL (4.0-10.0)
[2018-05-15 12:53] LABS: ANION GAP 11 MEQ/L (8-16); BLOOD UREA NITROGEN 49 MG/DL (7-18); CALCIUM LEVEL 9.3 MG/DL (8.8-10.2); CARBON DIOXIDE LEVEL 24 MEQ/L (21-32); CHLORIDE LEVEL 108 MEQ/L (98-107); CREATININE FOR GFR 1.73 MG/DL (0.55-1.30); GLOMERULAR FILTRATION RATE 30.6 (>39); GLUCOSE, FASTING 150 MG/DL (70-100); NT-PRO BNP 3290 PG/ML (<450); POTASSIUM SERUM 4.6 MEQ/L (3.5-5.1); SODIUM LEVEL 143 MEQ/L (136-145)
== END ==
DX: I50.9 Heart failure, unspecified (principal); N18.9 Chronic kidney disease, unspecified
CPT/HCPCS: 80048

== ENCOUNTER → 2018-05-25 | Outpatient (REF) | payer MEDICARE, MEDICAID ==
[2018-05-25 10:45] LABS: ANION GAP 8 MEQ/L (8-16); BLOOD UREA NITROGEN 50 MG/DL (7-18); CALCIUM LEVEL 9.3 MG/DL (8.8-10.2); CARBON DIOXIDE LEVEL 24 MEQ/L (21-32); CHLORIDE LEVEL 111 MEQ/L (98-107); CREATININE FOR GFR 1.59 MG/DL (0.55-1.30); GLOMERULAR FILTRATION RATE 33.7 (>39); GLUCOSE, FASTING 222 MG/DL (70-100); POTASSIUM SERUM 4.5 MEQ/L (3.5-5.1); SODIUM LEVEL 143 MEQ/L (136-145)
== END ==
DX: I50.9 Heart failure, unspecified (principal)
CPT/HCPCS: 80048

== ENCOUNTER → 2018-06-01 | Outpatient (REF) | payer MEDICARE, MEDICAID ==
[2018-06-01 09:25] LABS: HEMATOCRIT 41.3 % (36.0-47.0); HEMOGLOBIN 12.4 g/dl (12.0-15.5); MEAN CORPUSCULAR HEMOGLOBIN 26.3 pg (27.0-33.0); MEAN CORPUSCULAR VOLUME 87.5 fl (80.0-96.0); PLATELET COUNT, AUTOMATED 197 10^3/uL (150-450); RED BLOOD COUNT 4.72 10^6/uL (4.00-5.40); RED CELL DISTRIBUTION WIDTH 16.3 % (11.5-14.5); WHITE BLOOD COUNT 6.6 10^3/uL (4.0-10.0)
[2018-06-01 10:11] LABS: ANION GAP 9 MEQ/L (8-16); BLOOD UREA NITROGEN 51 MG/DL (7-18); CALCIUM LEVEL 9.1 MG/DL (8.8-10.2); CARBON DIOXIDE LEVEL 23 MEQ/L (21-32); CHLORIDE LEVEL 110 MEQ/L (98-107); CREATININE FOR GFR 1.62 MG/DL (0.55-1.30); GLUCOSE, FASTING 134 MG/DL (70-100); POTASSIUM SERUM 4.6 MEQ/L (3.5-5.1); SODIUM LEVEL 142 MEQ/L (136-145)
== END ==
DX: I50.9 Heart failure, unspecified (principal)
CPT/HCPCS: 80048

== ENCOUNTER → 2018-06-12 | Outpatient (REF) | payer MEDICARE, MEDICAID ==
[2018-06-12 12:03] LABS: HEMOGLOBIN 11.4 g/dl (12.0-15.5); MEAN CORPUSCULAR HEMOGLOBIN 26.4 pg (27.0-33.0); MEAN CORPUSCULAR HGB CONC 30.8 g/dl (32.0-36.5); MEAN CORPUSCULAR VOLUME 85.6 fl (80.0-96.0); PLATELET COUNT, AUTOMATED 172 10^3/uL (150-450); RED BLOOD COUNT 4.32 10^6/uL (4.00-5.40); RED CELL DISTRIBUTION WIDTH 16.6 % (11.5-14.5); WHITE BLOOD COUNT 5.9 10^3/uL (4.0-10.0)
[2018-06-12 12:39] LABS: ANION GAP 10 MEQ/L (8-16); BLOOD UREA NITROGEN 48 MG/DL (7-18); CALCIUM LEVEL 9.2 MG/DL (8.8-10.2); CARBON DIOXIDE LEVEL 22 MEQ/L (21-32); CHLORIDE LEVEL 111 MEQ/L (98-107); CREATININE FOR GFR 1.45 MG/DL (0.55-1.30); GLOMERULAR FILTRATION RATE 37.5 (>39); GLUCOSE, FASTING 141 MG/DL (70-100); NT-PRO BNP 2071 PG/ML (<450); POTASSIUM SERUM 4.4 MEQ/L (3.5-5.1); SODIUM LEVEL 143 MEQ/L (136-145)
== END ==
DX: I50.9 Heart failure, unspecified (principal)
CPT/HCPCS: 80048

== ENCOUNTER → 2018-07-06 | Outpatient (REF) | payer MEDICARE, MEDICAID ==
[2018-07-06 09:43] LABS: HEMOGLOBIN 11.8 g/dl (12.0-15.5); MEAN CORPUSCULAR HEMOGLOBIN 25.4 pg (27.0-33.0); MEAN CORPUSCULAR HGB CONC 28.8 g/dl (32.0-36.5); MEAN CORPUSCULAR VOLUME 88.4 fl (80.0-96.0); PLATELET COUNT, AUTOMATED 183 10^3/uL (150-450); RED BLOOD COUNT 4.64 10^6/uL (4.00-5.40); RED CELL DISTRIBUTION WIDTH 17.2 % (11.5-14.5); WHITE BLOOD COUNT 5.3 10^3/uL (4.0-10.0)
[2018-07-06 10:14] LABS: ANION GAP 12 MEQ/L (8-16); BLOOD UREA NITROGEN 49 MG/DL (7-18); CALCIUM LEVEL 9.4 MG/DL (8.8-10.2); CARBON DIOXIDE LEVEL 22 MEQ/L (21-32); CHLORIDE LEVEL 105 MEQ/L (98-107); CREATININE FOR GFR 1.58 MG/DL (0.55-1.30); GLOMERULAR FILTRATION RATE 33.9 (>39); GLUCOSE, FASTING 346 MG/DL (70-100); NT-PRO BNP 2704 PG/ML (<450); POTASSIUM SERUM 4.7 MEQ/L (3.5-5.1); SODIUM LEVEL 139 MEQ/L (136-145)
== END ==
DX: I50.9 Heart failure, unspecified (principal)
CPT/HCPCS: 80048

== ENCOUNTER → 2018-07-12 | Outpatient (REF) | payer MEDICARE, MEDICAID ==
[2018-07-12 10:34] LABS: ANION GAP 11 MEQ/L (8-16); BLOOD UREA NITROGEN 55 MG/DL (7-18); CALCIUM LEVEL 9.7 MG/DL (8.8-10.2); CARBON DIOXIDE LEVEL 26 MEQ/L (21-32); CHLORIDE LEVEL 106 MEQ/L (98-107); CREATININE FOR GFR 1.85 MG/DL (0.55-1.30); GLOMERULAR FILTRATION RATE 28.3 (>39); GLUCOSE, FASTING 266 MG/DL (70-100); NT-PRO BNP 2684 PG/ML (<450); POTASSIUM SERUM 4.4 MEQ/L (3.5-5.1); SODIUM LEVEL 143 MEQ/L (136-145)
== END ==
DX: R60.9 Edema, unspecified (principal)
CPT/HCPCS: 80048

== ENCOUNTER → 2018-07-13 | Outpatient (REF) | payer MEDICARE, MEDICAID ==
[2018-07-13 10:00] LABS: ANION GAP 9 MEQ/L (8-16); BLOOD UREA NITROGEN 62 MG/DL (7-18); CALCIUM LEVEL 9.8 MG/DL (8.8-10.2); CARBON DIOXIDE LEVEL 29 MEQ/L (21-32); CHLORIDE LEVEL 106 MEQ/L (98-107); GLOMERULAR FILTRATION RATE 27.4 (>39); GLUCOSE, FASTING 166 MG/DL (70-100); POTASSIUM SERUM 4.6 MEQ/L (3.5-5.1); SODIUM LEVEL 144 MEQ/L (136-145)
== END ==
DX: I50.9 Heart failure, unspecified (principal)
CPT/HCPCS: 80048

== ENCOUNTER → 2018-07-16 | Outpatient (REF) | payer MEDICARE, MEDICAID ==
[2018-07-16 14:24] LABS: ANION GAP 9 MEQ/L (8-16); BLOOD UREA NITROGEN 69 MG/DL (7-18); CALCIUM LEVEL 9.7 MG/DL (8.8-10.2); CARBON DIOXIDE LEVEL 26 MEQ/L (21-32); CHLORIDE LEVEL 107 MEQ/L (98-107); CREATININE FOR GFR 1.66 MG/DL (0.55-1.30); GLOMERULAR FILTRATION RATE 32.1 (>39); GLUCOSE, FASTING 242 MG/DL (70-100); SODIUM LEVEL 142 MEQ/L (136-145)
== END ==
DX: I50.9 Heart failure, unspecified (principal)
CPT/HCPCS: 80048

== ENCOUNTER → 2018-07-17 | Outpatient (REF) | payer MEDICARE, MEDICAID ==
[2018-07-17 09:52] LABS: ANION GAP 10 MEQ/L (8-16); BLOOD UREA NITROGEN 68 MG/DL (7-18); CALCIUM LEVEL 9.2 MG/DL (8.8-10.2); CARBON DIOXIDE LEVEL 24 MEQ/L (21-32); CHLORIDE LEVEL 107 MEQ/L (98-107); CREATININE FOR GFR 1.94 MG/DL (0.55-1.30); GLOMERULAR FILTRATION RATE 26.8 (>39); GLUCOSE, FASTING 300 MG/DL (70-100); NT-PRO BNP 2585 PG/ML (<450); POTASSIUM SERUM 5.1 MEQ/L (3.5-5.1); SODIUM LEVEL 141 MEQ/L (136-145)
== END ==
DX: I50.9 Heart failure, unspecified (principal)
CPT/HCPCS: 80048

== ENCOUNTER → 2018-07-19 | Outpatient (REF) | payer MEDICARE, MEDICAID ==
[2018-07-19 14:11] LABS: ANION GAP 11 MEQ/L (8-16); BLOOD UREA NITROGEN 64 MG/DL (7-18); CALCIUM LEVEL 9.1 MG/DL (8.8-10.2); CARBON DIOXIDE LEVEL 21 MEQ/L (21-32); CHLORIDE LEVEL 111 MEQ/L (98-107); CREATININE FOR GFR 1.55 MG/DL (0.55-1.30); GLOMERULAR FILTRATION RATE 34.7 (>39); GLUCOSE, FASTING 207 MG/DL (70-100); NT-PRO BNP 3342 PG/ML (<450); POTASSIUM SERUM 4.3 MEQ/L (3.5-5.1); SODIUM LEVEL 143 MEQ/L (136-145)
== END ==
DX: I50.9 Heart failure, unspecified (principal)
CPT/HCPCS: 80048

== ENCOUNTER → 2018-07-24 | Outpatient (REF) | payer MEDICARE, MEDICAID ==
[2018-07-24 10:19] LABS: ANION GAP 12 MEQ/L (8-16); BLOOD UREA NITROGEN 51 MG/DL (7-18); CALCIUM LEVEL 9.6 MG/DL (8.8-10.2); CARBON DIOXIDE LEVEL 20 MEQ/L (21-32); CHLORIDE LEVEL 112 MEQ/L (98-107); CREATININE FOR GFR 1.48 MG/DL (0.55-1.30); GLOMERULAR FILTRATION RATE 36.6 (>39); GLUCOSE, FASTING 143 MG/DL (70-100); NT-PRO BNP 3108 PG/ML (<450); POTASSIUM SERUM 4.3 MEQ/L (3.5-5.1); SODIUM LEVEL 144 MEQ/L (136-145)
== END ==
DX: I50.9 Heart failure, unspecified (principal)

== ENCOUNTER → 2018-07-31 | Outpatient (REF) | payer MEDICARE, MEDICAID ==
[2018-07-31 11:12] LABS: HEMATOCRIT 39.9 % (36.0-47.0); HEMOGLOBIN 11.6 g/dl (12.0-15.5); MEAN CORPUSCULAR HEMOGLOBIN 25.1 pg (27.0-33.0); MEAN CORPUSCULAR HGB CONC 29.1 g/dl (32.0-36.5); MEAN CORPUSCULAR VOLUME 86.4 fl (80.0-96.0); PLATELET COUNT, AUTOMATED 184 10^3/uL (150-450); RED BLOOD COUNT 4.62 10^6/uL (4.00-5.40); RED CELL DISTRIBUTION WIDTH 18.8 % (11.5-14.5); WHITE BLOOD COUNT 6.8 10^3/uL (4.0-10.0)
[2018-07-31 12:09] LABS: ANION GAP 8 MEQ/L (8-16); BLOOD UREA NITROGEN 54 MG/DL (7-18); CALCIUM LEVEL 9.4 MG/DL (8.8-10.2); CARBON DIOXIDE LEVEL 22 MEQ/L (21-32); CHLORIDE LEVEL 113 MEQ/L (98-107); CREATININE FOR GFR 1.41 MG/DL (0.55-1.30); GLOMERULAR FILTRATION RATE 38.7 (>39); GLUCOSE, FASTING 179 MG/DL (70-100); NT-PRO BNP 4263 PG/ML (<450); POTASSIUM SERUM 4.2 MEQ/L (3.5-5.1); SODIUM LEVEL 143 MEQ/L (136-145)
== END ==
DX: I50.9 Heart failure, unspecified (principal)
CPT/HCPCS: 80048

== ENCOUNTER → 2018-08-28 | Outpatient (REF) | payer MEDICARE, MEDICAID ==
[2018-08-28 10:26] LABS: HEMATOCRIT 33.7 % (36.0-47.0); HEMOGLOBIN 9.9 g/dl (12.0-15.5); MEAN CORPUSCULAR HEMOGLOBIN 24.9 pg (27.0-33.0); MEAN CORPUSCULAR HGB CONC 29.4 g/dl (32.0-36.5); MEAN CORPUSCULAR VOLUME 84.7 fl (80.0-96.0); PLATELET COUNT, AUTOMATED 141 10^3/uL (150-450); RED BLOOD COUNT 3.98 10^6/uL (4.00-5.40); RED CELL DISTRIBUTION WIDTH 18.2 % (11.5-14.5); WHITE BLOOD COUNT 4.3 10^3/uL (4.0-10.0)
[2018-08-28 11:02] LABS: ANION GAP 7 MEQ/L (8-16); BLOOD UREA NITROGEN 40 MG/DL (7-18); CARBON DIOXIDE LEVEL 21 MEQ/L (21-32); CHLORIDE LEVEL 111 MEQ/L (98-107); CREATININE FOR GFR 1.59 MG/DL (0.55-1.30); GLOMERULAR FILTRATION RATE 33.7 (>39); GLUCOSE, FASTING 346 MG/DL (70-100); NT-PRO BNP 2484 PG/ML (<450); POTASSIUM SERUM 4.9 MEQ/L (3.5-5.1); SODIUM LEVEL 139 MEQ/L (136-145)
== END ==
DX: I50.9 Heart failure, unspecified (principal)
CPT/HCPCS: 80048

== ENCOUNTER → 2018-09-13 | Outpatient (REF) | payer MEDICARE, MEDICAID | LOC: M LAB 20:00 | DX: R39.89 Other symptoms and signs involving the genitourinary system (principal) | CPT/HCPCS: 87186 ==

== ENCOUNTER → 2018-09-24 | Outpatient (REF) ==
[2018-09-24 15:42] LABS: HEMATOCRIT 38.2 % (36.0-47.0); HEMOGLOBIN 10.8 g/dl (12.0-15.5); MEAN CORPUSCULAR HEMOGLOBIN 24.2 pg (27.0-33.0); MEAN CORPUSCULAR HGB CONC 28.3 g/dl (32.0-36.5); MEAN CORPUSCULAR VOLUME 85.5 fl (80.0-96.0); PLATELET COUNT, AUTOMATED 172 10^3/uL (150-450); RED BLOOD COUNT 4.47 10^6/uL (4.00-5.40); RED CELL DISTRIBUTION WIDTH 18.9 % (11.5-14.5); WHITE BLOOD COUNT 8.6 10^3/uL (4.0-10.0)
[2018-09-24 16:10] LABS: ANION GAP 7 MEQ/L (8-16); BLOOD UREA NITROGEN 44 MG/DL (7-18); CALCIUM LEVEL 9.5 MG/DL (8.8-10.2); CARBON DIOXIDE LEVEL 20 MEQ/L (21-32); CHLORIDE LEVEL 113 MEQ/L (98-107); CREATININE FOR GFR 1.49 MG/DL (0.55-1.30); GLOMERULAR FILTRATION RATE 36.3 (>39); GLUCOSE, FASTING 229 MG/DL (70-100); NT-PRO BNP 2783 PG/ML (<450); POTASSIUM SERUM 4.5 MEQ/L (3.5-5.1); SODIUM LEVEL 140 MEQ/L (136-145)
[2018-09-25 13:27] LABS: ALBUMIN/GLOBULIN RATIO 0.97 (1.00-1.93); ALKALINE PHOSPHATASE 172 U/L (45-117); ALT/SGPT 20 U/L (12-78); AST/SGOT 10 U/L (7-37); BILIRUBIN,DIRECT 0.3 MG/DL (0.0-0.2); BILIRUBIN,TOTAL 0.7 MG/DL (0.2-1.0); TOTAL PROTEIN 6.1 GM/DL (6.4-8.2)
== END ==
DX: I50.9 Heart failure, unspecified (principal)

== ENCOUNTER → 2018-09-25 | Outpatient (REF) | payer MEDICARE, MEDICAID | DX: I51.7 Cardiomegaly (principal); I50.9 Heart failure, unspecified | CPT/HCPCS: 71045 ==

== ENCOUNTER → 2018-09-27 | Outpatient (REF) | payer MEDICARE, MEDICAID ==
[2018-09-27 08:40] LABS: HEMOGLOBIN 10.1 g/dl (12.0-15.5); MEAN CORPUSCULAR HEMOGLOBIN 24.2 pg (27.0-33.0); MEAN CORPUSCULAR HGB CONC 28.1 g/dl (32.0-36.5); MEAN CORPUSCULAR VOLUME 86.3 fl (80.0-96.0); PLATELET COUNT, AUTOMATED 142 10^3/uL (150-450); RED BLOOD COUNT 4.17 10^6/uL (4.00-5.40); RED CELL DISTRIBUTION WIDTH 18.6 % (11.5-14.5)
[2018-09-27 09:15] LABS: ANION GAP 8 MEQ/L (8-16); BLOOD UREA NITROGEN 43 MG/DL (7-18); CALCIUM LEVEL 9.9 MG/DL (8.8-10.2); CARBON DIOXIDE LEVEL 23 MEQ/L (21-32); CHLORIDE LEVEL 111 MEQ/L (98-107); CREATININE FOR GFR 1.58 MG/DL (0.55-1.30); GLOMERULAR FILTRATION RATE 33.9 (>39); GLUCOSE, FASTING 282 MG/DL (70-100); NT-PRO BNP 2863 PG/ML (<450); POTASSIUM SERUM 4.5 MEQ/L (3.5-5.1); SODIUM LEVEL 142 MEQ/L (136-145)
== END ==
DX: I50.9 Heart failure, unspecified (principal)
CPT/HCPCS: 80048

== ENCOUNTER → 2018-10-02 | Outpatient (REF) | payer MEDICARE, MEDICAID ==
[2018-10-02 10:07] LABS: HEMATOCRIT 37.3 % (36.0-47.0); HEMOGLOBIN 10.5 g/dl (12.0-15.5); MEAN CORPUSCULAR HEMOGLOBIN 24.1 pg (27.0-33.0); MEAN CORPUSCULAR HGB CONC 28.2 g/dl (32.0-36.5); MEAN CORPUSCULAR VOLUME 85.7 fl (80.0-96.0); PLATELET COUNT, AUTOMATED 183 10^3/uL (150-450); RED BLOOD COUNT 4.35 10^6/uL (4.00-5.40); RED CELL DISTRIBUTION WIDTH 18.4 % (11.5-14.5); WHITE BLOOD COUNT 5.6 10^3/uL (4.0-10.0)
[2018-10-02 10:57] LABS: ANION GAP 9 MEQ/L (8-16); BLOOD UREA NITROGEN 53 MG/DL (7-18); CALCIUM LEVEL 9.4 MG/DL (8.8-10.2); CARBON DIOXIDE LEVEL 24 MEQ/L (21-32); CHLORIDE LEVEL 105 MEQ/L (98-107); CREATININE FOR GFR 1.62 MG/DL (0.55-1.30); GLUCOSE, FASTING 398 MG/DL (70-100); NT-PRO BNP 2654 PG/ML (<450); POTASSIUM SERUM 4.1 MEQ/L (3.5-5.1); SODIUM LEVEL 138 MEQ/L (136-145)
== END ==
DX: I50.9 Heart failure, unspecified (principal)
CPT/HCPCS: 80048

== ENCOUNTER → 2018-10-04 | Outpatient (REF) | payer MEDICARE, MEDICAID ==
[2018-10-04 14:20] LABS: HEMATOCRIT 37.2 % (36.0-47.0); HEMOGLOBIN 10.8 g/dl (12.0-15.5); MEAN CORPUSCULAR HEMOGLOBIN 24.3 pg (27.0-33.0); MEAN CORPUSCULAR VOLUME 83.8 fl (80.0-96.0); PLATELET COUNT, AUTOMATED 189 10^3/uL (150-450); RED BLOOD COUNT 4.44 10^6/uL (4.00-5.40); RED CELL DISTRIBUTION WIDTH 18.2 % (11.5-14.5); WHITE BLOOD COUNT 5.8 10^3/uL (4.0-10.0)
[2018-10-04 15:28] LABS: ANION GAP 8 MEQ/L (8-16); BLOOD UREA NITROGEN 51 MG/DL (7-18); CARBON DIOXIDE LEVEL 24 MEQ/L (21-32); CHLORIDE LEVEL 105 MEQ/L (98-107); CREATININE FOR GFR 1.84 MG/DL (0.55-1.30); GLOMERULAR FILTRATION RATE 28.5 (>39); GLUCOSE, FASTING 419 MG/DL (70-100); POTASSIUM SERUM 4.2 MEQ/L (3.5-5.1); SODIUM LEVEL 137 MEQ/L (136-145)
== END ==
DX: N76.89 Other specified inflammation of vagina and vulva (principal)
CPT/HCPCS: 80048

== ENCOUNTER → 2018-10-09 | Outpatient (REF) | payer MEDICARE, MEDICAID ==
[2018-10-09 12:02] LABS: HEMATOCRIT 35.7 % (36.0-47.0); HEMOGLOBIN 9.9 g/dl (12.0-15.5); MEAN CORPUSCULAR HEMOGLOBIN 23.6 pg (27.0-33.0); MEAN CORPUSCULAR HGB CONC 27.7 g/dl (32.0-36.5); PLATELET COUNT, AUTOMATED 187 10^3/uL (150-450); WHITE BLOOD COUNT 5.8 10^3/uL (4.0-10.0)
[2018-10-09 12:35] LABS: ANION GAP 10 MEQ/L (8-16); BLOOD UREA NITROGEN 51 MG/DL (7-18); CALCIUM LEVEL 9.4 MG/DL (8.8-10.2); CARBON DIOXIDE LEVEL 23 MEQ/L (21-32); CHLORIDE LEVEL 106 MEQ/L (98-107); CREATININE FOR GFR 1.72 MG/DL (0.55-1.30); GLOMERULAR FILTRATION RATE 30.8 (>39); GLUCOSE, FASTING 312 MG/DL (70-100); POTASSIUM SERUM 4.2 MEQ/L (3.5-5.1); SODIUM LEVEL 139 MEQ/L (136-145)
== END ==
DX: I50.9 Heart failure, unspecified (principal)
CPT/HCPCS: 80048

== ENCOUNTER → 2018-10-10 | Outpatient (REF) | payer MEDICARE, MEDICAID ==
[2018-10-10 12:01] LABS: ANION GAP 10 MEQ/L (8-16); BLOOD UREA NITROGEN 54 MG/DL (7-18); CALCIUM LEVEL 9.1 MG/DL (8.8-10.2); CARBON DIOXIDE LEVEL 21 MEQ/L (21-32); CHLORIDE LEVEL 105 MEQ/L (98-107); CREATININE FOR GFR 1.86 MG/DL (0.55-1.30); GLOMERULAR FILTRATION RATE 28.1 (>39); GLUCOSE, FASTING 492 MG/DL (70-100); POTASSIUM SERUM 4.5 MEQ/L (3.5-5.1); SODIUM LEVEL 136 MEQ/L (136-145)
== END ==
DX: R73.9 Hyperglycemia, unspecified (principal)
CPT/HCPCS: 80048

== ENCOUNTER 2018-10-12 23:58 | Emergency (ER) | payer MEDICARE, MEDICAID ==
[2018-10-13 00:52] LABS: BASO # 0.1 10^3/uL (0.0-0.2); BASO % 0.4 % (0.0-1.0); EOS % 0.3 % (0.0-3.0); HEMATOCRIT 35.9 % (36.0-47.0); HEMOGLOBIN 10.4 g/dl (12.0-15.5); IMMATURE GRANULOCYTE % 0.6 % (0-3.0); LYMPH # 0.3 10^3/uL (1.5-4.5); LYMPH % 2.4 % (24.0-44.0); MEAN CORPUSCULAR VOLUME 82.7 fl (80.0-96.0); MONO # 0.9 10^3/uL (0.0-0.8); MONO % 6.5 % (0.0-5.0); NEUTROPHILS # 12.3 10^3/uL (1.8-7.7); NEUTROPHILS % 89.8 % (36.0-66.0); PLATELET COUNT, AUTOMATED 199 10^3/uL (150-450); RED BLOOD COUNT 4.34 10^6/uL (4.00-5.40); RED CELL DISTRIBUTION WIDTH 17.8 % (11.5-14.5); WHITE BLOOD COUNT 13.7 10^3/uL (4.0-10.0)
[2018-10-13 00:58] LABS: APPEARANCE, URINE CLOUDY (CLEAR); BACTERIA, URINE AUTO 2+ (NEGATIVE); BILIRUBIN, URINE AUTO NEGATIVE (NEGATIVE); BLOOD, URINE BLOOD 2+ (NEGATIVE); COLOR, URINE YELLOW (YELLOW); GLUCOSE, URINE (UA) AUTO 2+ mg/dL (NEGATIVE); KETONE, URINE AUTO NEGATIVE (NEGATIVE); LEUKOCYTE ESTERASE, URINE AUTO 3+ (NEGATIVE); NITRITE, URINE AUTO NEGATIVE (NEGATIVE); PROTEIN, URINE AUTO 1+ mg/dL (NEGATIVE); RBC, URINE AUTO 71 /HPF (0-3); SPECIFIC GRAVITY URINE AUTO 1.013 (1.002-1.035); SQUAMOUS EPITHELIAL CELL UR AU 1 /HPF (0-6); UROBILINOGEN, URINE AUTO 0.2 mg/dL (0.0-2.0); WBC, URINE AUTO TNTC /HPF (0-3)
[2018-10-13 01:20] LABS: ALBUMIN 2.9 GM/DL (3.2-5.2); ALBUMIN/GLOBULIN RATIO 0.91 (1.00-1.93); ALKALINE PHOSPHATASE 160 U/L (45-117); ALT/SGPT 17 U/L (12-78); ANION GAP 11 MEQ/L (8-16); AST/SGOT 13 U/L (7-37); BILIRUBIN,DIRECT 0.3 MG/DL (0.0-0.2); BILIRUBIN,TOTAL 0.7 MG/DL (0.2-1.0); BLOOD UREA NITROGEN 45 MG/DL (7-18); CALCIUM LEVEL 9.5 MG/DL (8.8-10.2); CARBON DIOXIDE LEVEL 18 MEQ/L (21-32); CHLORIDE LEVEL 112 MEQ/L (98-107); CREATININE FOR GFR 1.56 MG/DL (0.55-1.30); GLOMERULAR FILTRATION RATE 34.4 (>39); GLUCOSE, FASTING 287 MG/DL (70-100); POTASSIUM SERUM 4.6 MEQ/L (3.5-5.1); SODIUM LEVEL 141 MEQ/L (136-145); TOTAL PROTEIN 6.1 GM/DL (6.4-8.2)
[2018-10-13 01:28] LABS: LACTIC ACID SEPSIS PROTOCOL 2.2 MMOL/L (0.4-2.0)
[2018-10-13] MEDS: NS 1,000 ML IV (01:52)
[2018-10-13] MEDS: CIPROFLOXACIN 400 MG in APPROPRIATE DILUENT 1 EA IV (01:52)
[2018-10-13] MEDS: HumuLIN R (REGULAR) INSULIN (NovoLIN R) **100U/ML** PER UNIT IV (03:17)
[2018-10-13] MEDS: ACETAMINOPHEN 325 MG TAB PO (03:18)
[2018-10-13 03:59] LABS: BEDSIDE GLUCOSE 345 MG/DL (83-110)
== END 2018-10-13 05:35 | disposition home or self-care (01) ==
LOC: M ED 23:58
DX: N39.0 Urinary tract infection, site not specified (principal); E11.65 Type 2 diabetes mellitus with hyperglycemia; I11.0 Hypertensive heart disease with heart failure; I50.9 Heart failure, unspecified; I48.91 Unspecified atrial fibrillation; K21.9 Gastro-esophageal reflux disease without esophagitis; E78.5 Hyperlipidemia, unspecified; Z95.5 Presence of coronary angioplasty implant and graft; Z79.899 Other long term (current) drug therapy; Z79.4 Long term (current) use of insulin; Z79.01 Long term (current) use of anticoagulants; Z88.1 Allergy status to other antibiotic agents
CPT/HCPCS: J0744

== ENCOUNTER → 2018-10-12 | Outpatient (REF) | payer MEDICARE, MEDICAID ==
[2018-10-12 13:30] LABS: ANION GAP 9 MEQ/L (8-16); BLOOD UREA NITROGEN 49 MG/DL (7-18); CALCIUM LEVEL 9.6 MG/DL (8.8-10.2); CARBON DIOXIDE LEVEL 22 MEQ/L (21-32); CHLORIDE LEVEL 108 MEQ/L (98-107); CREATININE FOR GFR 1.67 MG/DL (0.55-1.30); GLOMERULAR FILTRATION RATE 31.8 (>39); GLUCOSE, FASTING 400 MG/DL (70-100); POTASSIUM SERUM 4.1 MEQ/L (3.5-5.1); SODIUM LEVEL 139 MEQ/L (136-145)
== END ==
DX: I50.9 Heart failure, unspecified (principal)
CPT/HCPCS: 80048

== ENCOUNTER → 2018-10-30 | Outpatient (REF) | payer MEDICARE, MEDICAID ==
[2018-10-30 10:08] LABS: HEMATOCRIT 32.5 % (36.0-47.0); HEMOGLOBIN 9.1 g/dl (12.0-15.5); MEAN CORPUSCULAR HEMOGLOBIN 23.1 pg (27.0-33.0); MEAN CORPUSCULAR VOLUME 82.5 fl (80.0-96.0); PLATELET COUNT, AUTOMATED 206 10^3/uL (150-450); RED BLOOD COUNT 3.94 10^6/uL (4.00-5.40); RED CELL DISTRIBUTION WIDTH 18.3 % (11.5-14.5); WHITE BLOOD COUNT 9.9 10^3/uL (4.0-10.0)
[2018-10-30 10:32] LABS: ANION GAP 9 MEQ/L (8-16); BLOOD UREA NITROGEN 48 MG/DL (7-18); CALCIUM LEVEL 8.9 MG/DL (8.8-10.2); CARBON DIOXIDE LEVEL 21 MEQ/L (21-32); CHLORIDE LEVEL 108 MEQ/L (98-107); CREATININE FOR GFR 1.68 MG/DL (0.55-1.30); GLOMERULAR FILTRATION RATE 31.6 (>39); GLUCOSE, FASTING 223 MG/DL (70-100); NT-PRO BNP 5077 PG/ML (<450); POTASSIUM SERUM 4.3 MEQ/L (3.5-5.1); SODIUM LEVEL 138 MEQ/L (136-145)
== END ==
DX: I50.9 Heart failure, unspecified (principal)
CPT/HCPCS: 80048

== ENCOUNTER 2018-11-01 15:50 | Inpatient (IN) | payer MEDICARE, MEDICAID ==
[2018-11-01 16:54] LABS: BASO # 0.1 10^3/uL (0.0-0.2); BASO % 0.3 % (0.0-1.0); EOS % 0.1 % (0.0-3.0); HEMATOCRIT 33.5 % (36.0-47.0); HEMOGLOBIN 9.5 g/dl (12.0-15.5); IMMATURE GRANULOCYTE % 1.3 % (0-3.0); LYMPH # 0.5 10^3/uL (1.5-4.5); LYMPH % 2.5 % (24.0-44.0); MEAN CORPUSCULAR HEMOGLOBIN 23.3 pg (27.0-33.0); MEAN CORPUSCULAR HGB CONC 28.4 g/dl (32.0-36.5); MEAN CORPUSCULAR VOLUME 82.1 fl (80.0-96.0); MONO # 0.9 10^3/uL (0.0-0.8); MONO % 4.9 % (0.0-5.0); NEUTROPHILS # 16.3 10^3/uL (1.8-7.7); NEUTROPHILS % 90.9 % (36.0-66.0); PLATELET COUNT, AUTOMATED 236 10^3/uL (150-450); RED BLOOD COUNT 4.08 10^6/uL (4.00-5.40); RED CELL DISTRIBUTION WIDTH 18.4 % (11.5-14.5)
[2018-11-01] MEDS: NS 1,000 ML IV ×3 (17:00→23:40)
[2018-11-01 17:13] LABS: LACTIC ACID SEPSIS PROTOCOL 1.6 MMOL/L (0.4-2.0)
[2018-11-01] MEDS: ONDANSETRON 4MG/2ML VIAL (J2405) IV (17:21)
[2018-11-01] MEDS: ACETAMINOPHEN TAB 650MG DOSE (2X325MG) PO (17:21)
[2018-11-01 17:28] LABS: ALBUMIN 2.5 GM/DL (3.2-5.2); ALBUMIN/GLOBULIN RATIO 0.74 (1.00-1.93); ALKALINE PHOSPHATASE 191 U/L (45-117); ALT/SGPT 17 U/L (12-78); ANION GAP 9 MEQ/L (8-16); AST/SGOT 16 U/L (7-37); BILIRUBIN,DIRECT 0.6 MG/DL (0.0-0.2); BLOOD UREA NITROGEN 46 MG/DL (7-18); CALCIUM LEVEL 9.3 MG/DL (8.8-10.2); CARBON DIOXIDE LEVEL 21 MEQ/L (21-32); CHLORIDE LEVEL 106 MEQ/L (98-107); CREATININE FOR GFR 1.58 MG/DL (0.55-1.30); DIGOXIN LEVEL 1.5 NG/ML (0.5-2.0); GLOMERULAR FILTRATION RATE 33.9 (>39); GLUCOSE, FASTING 270 MG/DL (70-100); LIPASE 86 U/L (73-393); POTASSIUM SERUM 4.5 MEQ/L (3.5-5.1); SODIUM LEVEL 136 MEQ/L (136-145); TOTAL PROTEIN 5.9 GM/DL (6.4-8.2)
[2018-11-01] MEDS ORDERED: GLUCAGON FOR INJ 1 MG VIAL (J1610) SC (19:15)
[2018-11-01] MEDS ORDERED: DEXTROSE 50% 50 ML SYRINGE IV (19:15)
[2018-11-01] MEDS ORDERED: GLUCOSE 4 GM CHEW TABLET PO (19:15)
[2018-11-01 20:13] LABS: INFLUENZA A AMPLIFICATION NEGATIVE (NEGATIVE); INFLUENZA B AMPLIFICATION NEGATIVE (NEGATIVE)
[2018-11-01] MEDS: FLUTICASONE PROP 0.05% NASAL SPRAY 16 GM (FLONASE) NARES (21:00)
[2018-11-01 21:37] LABS: KETONE, URINE AUTO RFX NEGATIVE (NEGATIVE); LEUKOCYTE ESTERASE UR AUTO RFX 3+ (NEGATIVE); NITRITE, URINE AUTO RFX NEGATIVE (NEGATIVE); RBC, URINE AUTO RFX 18 /HPF (0-3); SPECIFIC GRAVITY UR AUTO RFX 1.014 (1.002-1.035); SQUAM EPITHELIAL CELL UR AURFX 0 /HPF (0-6); WBC, URINE AUTO RFX TNTC /HPF (0-3)
[2018-11-01] MEDS: cefTRIAXone SOD 1 GM in D5W MINI-BAG PLUS 50 ML IV (22:00)
[2018-11-01] MEDS ORDERED: NITROGLYCERIN 0.4 MG SUBL TABLET SL (23:15)
[2018-11-01] MEDS ORDERED: MOM 30ML SUSPENSION UDC PO (23:15)
[2018-11-01] MEDS ORDERED: BISACODYL 10 MG SUPP PR (23:15)
[2018-11-01] MEDS: BISOPROLOL FUMARATE 5 MG TAB PO (23:16)
[2018-11-01] MEDS: DICYCLOMINE 10 MG CAP PO (23:17)
[2018-11-01] MEDS: PANTOPRAZOLE 40MG TAB (PROTONIX) PO (23:18)
[2018-11-01] MEDS: RIVAROXABAN 15 MG TAB (XARELTO) PO (23:19)
[2018-11-01 23:52] LABS: FERRITIN 24 NG/ML (8-252); IRON (FE) 13 UG/DL (50-170); PERCENT SATURATION 5.6 % (13.2-45.0); TOTAL IRON BINDING CAPACITY 234 UG/DL (250-450)
[2018-11-01 23:58] LABS: ESTIMATED AVERAGE GLUCOSE 283 MG/DL (60-110); HEMOGLOBIN A1c 11.5 %
[2018-11-02] MEDS: traMADol 50 MG TAB PO ×2 (00:16→22:35)
[2018-11-02 02:32] LABS: BEDSIDE GLUCOSE 361 MG/DL (83-110)
[2018-11-02] MEDS: LEVEMIR (INSULIN DETEMIR) 1 UNITS/0.01ML SC ×3 (02:36→21:02)
[2018-11-02] MEDS: ONDANSETRON 4MG/2ML VIAL (J2405) IV (02:54)
[2018-11-02] MEDS: ACETAMINOPHEN TAB 650MG DOSE (2X325MG) PO (03:30)
[2018-11-02] MEDS: METOCLOPRAMIDE INJ 10MG/2ML VIAL (J2765) IV (04:40)
[2018-11-02] MEDS: hydrALAZINE INJ 20 MG/ML VIAL IV (04:41)
[2018-11-02 05:58] LABS: HEMATOCRIT 34.1 % (36.0-47.0); HEMOGLOBIN 9.4 g/dl (12.0-15.5); MEAN CORPUSCULAR HEMOGLOBIN 22.7 pg (27.0-33.0); MEAN CORPUSCULAR HGB CONC 27.6 g/dl (32.0-36.5); MEAN CORPUSCULAR VOLUME 82.2 fl (80.0-96.0); PLATELET COUNT, AUTOMATED 271 10^3/uL (150-450); RED BLOOD COUNT 4.15 10^6/uL (4.00-5.40); RED CELL DISTRIBUTION WIDTH 18.6 % (11.5-14.5); WHITE BLOOD COUNT 24.5 10^3/uL (4.0-10.0)
[2018-11-02 06:24] LABS: ANION GAP 12 MEQ/L (8-16); BLOOD UREA NITROGEN 47 MG/DL (7-18); CALCIUM LEVEL 8.7 MG/DL (8.8-10.2); CARBON DIOXIDE LEVEL 15 MEQ/L (21-32); CHLORIDE LEVEL 107 MEQ/L (98-107); CREATININE FOR GFR 1.73 MG/DL (0.55-1.30); GLOMERULAR FILTRATION RATE 30.6 (>39); GLUCOSE, FASTING 421 MG/DL (70-100); POTASSIUM SERUM 4.9 MEQ/L (3.5-5.1); SODIUM LEVEL 134 MEQ/L (136-145)
[2018-11-02 06:25] LABS: LACTIC ACID SEPSIS PROTOCOL 2.6 MMOL/L (0.4-2.0)
[2018-11-02] MEDS ORDERED: HumaLOG INSULIN (NovoLOG) PER UNIT SC (07:30)
[2018-11-02] MEDS: PANTOPRAZOLE 40MG TAB (PROTONIX) PO ×2 (08:30→20:59)
[2018-11-02] MEDS: NS 1,000 ML IV ×2 (08:30→17:38)
[2018-11-02] MEDS: FERROUS SULFATE 325MG TAB PO (08:31)
[2018-11-02] MEDS: PRAVASTATIN 20 MG TAB PO (08:31)
[2018-11-02] MEDS: FUROSEMIDE 40 MG TAB PO (08:31)
[2018-11-02] MEDS: DIGOXIN 0.125 MG TAB PO (08:32)
[2018-11-02] MEDS: BISOPROLOL FUMARATE 5 MG TAB PO ×2 (08:33→20:59)
[2018-11-02] MEDS ORDERED: VANCOMYCIN HCL 750 MG, VIAL MATE ADAPTER 1 EACH in D5W 250 ML IV (09:45)
[2018-11-02 10:19] LABS: FOLATE 8.9 NG/ML; VITAMIN B12 LEVEL > 2000 PG/ML
[2018-11-02] MEDS: VANCOMYCIN HCL 1,000 MG, VIAL MATE ADAPTER 1 EACH in D5W 250 ML IV ×2 (10:25→11:39)
[2018-11-02 11:00] LABS: BEDSIDE GLUCOSE 453 MG/DL (83-110)
[2018-11-02] MEDS ORDERED: GLUCAGON FOR INJ 1 MG VIAL (J1610) SC (11:30)
[2018-11-02] MEDS ORDERED: GLUCOSE 4 GM CHEW TABLET PO (11:30)
[2018-11-02] MEDS ORDERED: DEXTROSE 50% 50 ML SYRINGE IV (11:30)
[2018-11-02] MEDS: HumaLOG INSULIN (NovoLOG) PER UNIT SC ×3 (12:48→21:02)
[2018-11-02] MEDS: NYSTATIN 100,000 UNITS/GM TOPICAL PWD 15 GM TOP ×2 (14:45→21:01)
[2018-11-02] MEDS: DICYCLOMINE 10 MG CAP PO ×2 (14:45→20:59)
[2018-11-02 16:39] LABS: BEDSIDE GLUCOSE 447 MG/DL (83-110)
[2018-11-02] MEDS: RIVAROXABAN 15 MG TAB (XARELTO) PO (17:37)
[2018-11-02 20:44] LABS: BEDSIDE GLUCOSE 452 MG/DL (83-110)
[2018-11-02] MEDS: FLUTICASONE PROP 0.05% NASAL SPRAY 16 GM (FLONASE) NARES (20:59)
[2018-11-02] MEDS: DIAPER RELIEF PASTE (DESITIN) 60GM TOP (21:00)
[2018-11-02] MEDS: EUCERIN 120GM CREAM TOP (21:00)
[2018-11-02] MEDS: cefTRIAXone SOD 1 GM in D5W MINI-BAG PLUS 50 ML IV (21:01)
[2018-11-02] MEDS: FUROSEMIDE 40 MG/4 ML VIAL (J1940) IV (22:27)
[2018-11-03 06:17] LABS: HEMATOCRIT 30.5 % (36.0-47.0); HEMOGLOBIN 8.8 g/dl (12.0-15.5); MEAN CORPUSCULAR HEMOGLOBIN 23.2 pg (27.0-33.0); MEAN CORPUSCULAR HGB CONC 28.9 g/dl (32.0-36.5); MEAN CORPUSCULAR VOLUME 80.5 fl (80.0-96.0); PLATELET COUNT, AUTOMATED 252 10^3/uL (150-450); RED BLOOD COUNT 3.79 10^6/uL (4.00-5.40); RED CELL DISTRIBUTION WIDTH 18.8 % (11.5-14.5); WHITE BLOOD COUNT 17.9 10^3/uL (4.0-10.0)
[2018-11-03 06:41] LABS: ANION GAP 11 MEQ/L (8-16); BLOOD UREA NITROGEN 44 MG/DL (7-18); CALCIUM LEVEL 8.6 MG/DL (8.8-10.2); CARBON DIOXIDE LEVEL 17 MEQ/L (21-32); CHLORIDE LEVEL 105 MEQ/L (98-107); CREATININE FOR GFR 1.73 MG/DL (0.55-1.30); GLOMERULAR FILTRATION RATE 30.6 (>39); GLUCOSE, FASTING 348 MG/DL (70-100); POTASSIUM SERUM 4.5 MEQ/L (3.5-5.1); SODIUM LEVEL 133 MEQ/L (136-145)
[2018-11-03 08:06] LABS: TRANSFERRIN 174 mg/dL (200-370)
[2018-11-03] MEDS: HumaLOG INSULIN (NovoLOG) PER UNIT SC ×4 (08:25→21:00)
[2018-11-03] MEDS: BISOPROLOL FUMARATE 5 MG TAB PO ×2 (08:26→21:48)
[2018-11-03] MEDS: traMADol 50 MG TAB PO ×2 (08:26→17:35)
[2018-11-03] MEDS: PANTOPRAZOLE 40MG TAB (PROTONIX) PO ×2 (08:27→21:48)
[2018-11-03] MEDS: FERROUS SULFATE 325MG TAB PO (08:27)
[2018-11-03] MEDS: DICYCLOMINE 10 MG CAP PO ×2 (08:27→21:46)
[2018-11-03] MEDS: PRAVASTATIN 20 MG TAB PO (08:27)
[2018-11-03] MEDS: DIGOXIN 0.125 MG TAB PO (08:27)
[2018-11-03] MEDS: LEVEMIR (INSULIN DETEMIR) 1 UNITS/0.01ML SC ×2 (08:28→21:00)
[2018-11-03] MEDS: DIAPER RELIEF PASTE (DESITIN) 60GM TOP (08:28)
[2018-11-03] MEDS: FUROSEMIDE 40 MG/4 ML VIAL (J1940) IV ×2 (08:28→17:32)
[2018-11-03] MEDS: EUCERIN 120GM CREAM TOP (08:29)
[2018-11-03] MEDS: NYSTATIN 100,000 UNITS/GM TOPICAL PWD 15 GM TOP ×2 (08:29→21:46)
[2018-11-03] MEDS: VANCOMYCIN HCL 1,000 MG, VIAL MATE ADAPTER 1 EACH in D5W 250 ML IV ×2 (10:00→13:51)
[2018-11-03 11:52] LABS: BEDSIDE GLUCOSE 290 MG/DL (83-110)
[2018-11-03 16:25] LABS: BEDSIDE GLUCOSE 309 MG/DL (83-110)
[2018-11-03] MEDS: RIVAROXABAN 15 MG TAB (XARELTO) PO (17:33)
[2018-11-03 20:03] LABS: BEDSIDE GLUCOSE 341 MG/DL (83-110)
[2018-11-03] MEDS: cefTRIAXone SOD 1 GM in D5W MINI-BAG PLUS 50 ML IV (21:46)
[2018-11-03] MEDS: FLUTICASONE PROP 0.05% NASAL SPRAY 16 GM (FLONASE) NARES (21:46)
[2018-11-04] MEDS: traMADol 50 MG TAB PO (04:33)
[2018-11-04 06:02] LABS: HEMATOCRIT 32.2 % (36.0-47.0); MEAN CORPUSCULAR VOLUME 82.1 fl (80.0-96.0); PLATELET COUNT, AUTOMATED 235 10^3/uL (150-450); RED BLOOD COUNT 3.92 10^6/uL (4.00-5.40); WHITE BLOOD COUNT 11.6 10^3/uL (4.0-10.0)
[2018-11-04 06:16] LABS: ANION GAP 10 MEQ/L (8-16); BLOOD UREA NITROGEN 48 MG/DL (7-18); CALCIUM LEVEL 8.3 MG/DL (8.8-10.2); CARBON DIOXIDE LEVEL 16 MEQ/L (21-32); CHLORIDE LEVEL 108 MEQ/L (98-107); CREATININE FOR GFR 1.74 MG/DL (0.55-1.30); GLOMERULAR FILTRATION RATE 30.4 (>39); GLUCOSE, FASTING 268 MG/DL (70-100); POTASSIUM SERUM 4.5 MEQ/L (3.5-5.1); SODIUM LEVEL 134 MEQ/L (136-145)
[2018-11-04] MEDS: VANCOMYCIN HCL 1,000 MG, VIAL MATE ADAPTER 1 EACH in D5W 250 ML IV (08:59)
[2018-11-04] MEDS: DICYCLOMINE 10 MG CAP PO ×2 (09:00→22:47)
[2018-11-04] MEDS: FUROSEMIDE 40 MG/4 ML VIAL (J1940) IV ×2 (09:00→17:38)
[2018-11-04] MEDS: BISOPROLOL FUMARATE 5 MG TAB PO ×2 (09:01→22:48)
[2018-11-04] MEDS: BACLOFEN 10 MG TAB PO (09:01)
[2018-11-04] MEDS: PANTOPRAZOLE 40MG TAB (PROTONIX) PO ×2 (09:01→22:48)
[2018-11-04] MEDS: PRAVASTATIN 20 MG TAB PO (09:01)
[2018-11-04] MEDS: FERROUS SULFATE 325MG TAB PO (09:02)
[2018-11-04] MEDS: DIGOXIN 0.125 MG TAB PO (09:02)
[2018-11-04] MEDS: LEVEMIR (INSULIN DETEMIR) 1 UNITS/0.01ML SC ×2 (09:03→22:48)
[2018-11-04] MEDS: HumaLOG INSULIN (NovoLOG) PER UNIT SC ×4 (09:03→21:00)
[2018-11-04] MEDS: DIAPER RELIEF PASTE (DESITIN) 60GM TOP (09:04)
[2018-11-04] MEDS: NYSTATIN 100,000 UNITS/GM TOPICAL PWD 15 GM TOP ×2 (09:04→22:49)
[2018-11-04] MEDS: EUCERIN 120GM CREAM TOP (09:04)
[2018-11-04 09:33] LABS: VANCOMYCIN LEVEL TROUGH 12.2 UG/ML (10.0-20.0)
[2018-11-04 11:31] LABS: BEDSIDE GLUCOSE 292 MG/DL (83-110)
[2018-11-04] MEDS: ACETAMINOPHEN TAB 650MG DOSE (2X325MG) PO (13:24)
[2018-11-04 16:27] LABS: BEDSIDE GLUCOSE 249 MG/DL (83-110)
[2018-11-04] MEDS: RIVAROXABAN 15 MG TAB (XARELTO) PO (17:40)
[2018-11-04 20:45] LABS: BEDSIDE GLUCOSE 247 MG/DL (83-110)
[2018-11-04] MEDS: cefTRIAXone SOD 1 GM in D5W MINI-BAG PLUS 50 ML IV (22:47)
[2018-11-04] MEDS: FLUTICASONE PROP 0.05% NASAL SPRAY 16 GM (FLONASE) NARES (22:48)
[2018-11-05] MEDS: PANTOPRAZOLE 40MG TAB (PROTONIX) PO ×2 (08:40→21:50)
[2018-11-05] MEDS: DICYCLOMINE 10 MG CAP PO ×2 (08:40→21:50)
[2018-11-05] MEDS: FERROUS SULFATE 325MG TAB PO (08:40)
[2018-11-05] MEDS: DIGOXIN 0.125 MG TAB PO (08:40)
[2018-11-05 08:41] LABS: HEMATOCRIT 34.1 % (36.0-47.0); HEMOGLOBIN 9.5 g/dl (12.0-15.5); MEAN CORPUSCULAR HEMOGLOBIN 22.8 pg (27.0-33.0); MEAN CORPUSCULAR HGB CONC 27.9 g/dl (32.0-36.5); PLATELET COUNT, AUTOMATED 282 10^3/uL (150-450); RED BLOOD COUNT 4.16 10^6/uL (4.00-5.40); RED CELL DISTRIBUTION WIDTH 19.2 % (11.5-14.5); WHITE BLOOD COUNT 12.6 10^3/uL (4.0-10.0)
[2018-11-05] MEDS: ACETAMINOPHEN TAB 650MG DOSE (2X325MG) PO (08:41)
[2018-11-05] MEDS: PRAVASTATIN 20 MG TAB PO (08:41)
[2018-11-05] MEDS: BISOPROLOL FUMARATE 5 MG TAB PO ×2 (08:41→21:50)
[2018-11-05] MEDS: traMADol 50 MG TAB PO (08:42)
[2018-11-05] MEDS: LEVEMIR (INSULIN DETEMIR) 1 UNITS/0.01ML SC ×2 (08:42→21:51)
[2018-11-05] MEDS: HumaLOG INSULIN (NovoLOG) PER UNIT SC ×4 (08:43→21:51)
[2018-11-05] MEDS: FUROSEMIDE 40 MG/4 ML VIAL (J1940) IV ×2 (08:44→18:11)
[2018-11-05] MEDS: DIAPER RELIEF PASTE (DESITIN) 60GM TOP (08:45)
[2018-11-05] MEDS: EUCERIN 120GM CREAM TOP (08:45)
[2018-11-05] MEDS: NYSTATIN 100,000 UNITS/GM TOPICAL PWD 15 GM TOP ×2 (08:45→21:52)
[2018-11-05 09:00] LABS: ANION GAP 9 MEQ/L (8-16); BLOOD UREA NITROGEN 47 MG/DL (7-18); CALCIUM LEVEL 8.9 MG/DL (8.8-10.2); CARBON DIOXIDE LEVEL 20 MEQ/L (21-32); CHLORIDE LEVEL 106 MEQ/L (98-107); CREATININE FOR GFR 1.76 MG/DL (0.55-1.30); GLUCOSE, FASTING 319 MG/DL (70-100); POTASSIUM SERUM 4.7 MEQ/L (3.5-5.1); SODIUM LEVEL 135 MEQ/L (136-145)
[2018-11-05] MEDS: BACLOFEN 10 MG TAB PO ×2 (10:21→21:51)
[2018-11-05] MEDS: VANCOMYCIN HCL 1,000 MG, VIAL MATE ADAPTER 1 EACH in D5W 250 ML IV (10:21)
[2018-11-05 11:09] LABS: BEDSIDE GLUCOSE 408 MG/DL (83-110)
[2018-11-05 16:21] LABS: BEDSIDE GLUCOSE 415 MG/DL (83-110)
[2018-11-05] MEDS: RIVAROXABAN 15 MG TAB (XARELTO) PO (18:11)
[2018-11-05 21:24] LABS: BEDSIDE GLUCOSE 380 MG/DL (83-110)
[2018-11-05] MEDS: cefTRIAXone SOD 1 GM in D5W MINI-BAG PLUS 50 ML IV (21:52)
[2018-11-05] MEDS: FLUTICASONE PROP 0.05% NASAL SPRAY 16 GM (FLONASE) NARES (21:52)
[2018-11-06 06:27] LABS: HEMATOCRIT 32.7 % (36.0-47.0); HEMOGLOBIN 9.1 g/dl (12.0-15.5); MEAN CORPUSCULAR HEMOGLOBIN 22.8 pg (27.0-33.0); MEAN CORPUSCULAR HGB CONC 27.8 g/dl (32.0-36.5); PLATELET COUNT, AUTOMATED 253 10^3/uL (150-450); RED BLOOD COUNT 3.99 10^6/uL (4.00-5.40); RED CELL DISTRIBUTION WIDTH 18.9 % (11.5-14.5); WHITE BLOOD COUNT 12.3 10^3/uL (4.0-10.0)
[2018-11-06 06:52] LABS: ANION GAP 8 MEQ/L (8-16); BLOOD UREA NITROGEN 45 MG/DL (7-18); CALCIUM LEVEL 8.7 MG/DL (8.8-10.2); CARBON DIOXIDE LEVEL 22 MEQ/L (21-32); CHLORIDE LEVEL 107 MEQ/L (98-107); CREATININE FOR GFR 1.61 MG/DL (0.55-1.30); GLOMERULAR FILTRATION RATE 33.2 (>39); GLUCOSE, FASTING 253 MG/DL (70-100); POTASSIUM SERUM 3.7 MEQ/L (3.5-5.1); SODIUM LEVEL 137 MEQ/L (136-145)
[2018-11-06 06:53] LABS: LACTIC ACID SEPSIS PROTOCOL 1.2 MMOL/L (0.4-2.0)
[2018-11-06] MEDS: HumaLOG INSULIN (NovoLOG) PER UNIT SC (07:30)
[2018-11-06] MEDS: FERROUS SULFATE 325MG TAB PO (09:44)
[2018-11-06] MEDS: BISOPROLOL FUMARATE 5 MG TAB PO (09:44)
[2018-11-06] MEDS: DIGOXIN 0.125 MG TAB PO (09:45)
[2018-11-06] MEDS: CEFDINIR 300 MG CAP (OMNICEF) PO (09:45)
[2018-11-06] MEDS: PANTOPRAZOLE 40MG TAB (PROTONIX) PO (09:45)
[2018-11-06] MEDS: DICYCLOMINE 10 MG CAP PO (09:45)
[2018-11-06] MEDS: PRAVASTATIN 20 MG TAB PO (09:45)
[2018-11-06] MEDS: LEVEMIR (INSULIN DETEMIR) 1 UNITS/0.01ML SC (09:47)
[2018-11-06] MEDS: EUCERIN 120GM CREAM TOP (09:48)
[2018-11-06] MEDS: DIAPER RELIEF PASTE (DESITIN) 60GM TOP (09:49)
[2018-11-06] MEDS: NYSTATIN 100,000 UNITS/GM TOPICAL PWD 15 GM TOP (09:50)
[2018-11-06] MEDS: BACLOFEN 10 MG TAB PO (11:04)
[2018-11-06 11:12] LABS: BEDSIDE GLUCOSE 227 MG/DL (83-110)
== END 2018-11-06 12:10 | DRG 871 ==
LOC: M PCU 11-02 01:35 → M MS5PR 11-04 06:43 → M ED 15:50 → M ED INP 23:11
DX: A40.1 Sepsis due to streptococcus, group B (principal); I50.33 Acute on chronic diastolic (congestive) heart failure; N39.0 Urinary tract infection, site not specified; N17.9 Acute kidney failure, unspecified; E44.0 Moderate protein-calorie malnutrition; L97.319 Non-pressure chronic ulcer of right ankle with unspecified severity; I13.0 Hypertensive heart and chronic kidney disease with heart failure and stage 1 through stage 4 chronic kidney disease, or unspecified chronic kidney disease; Z68.43 Body mass index [BMI] 50.0-59.9, adult; D63.8 Anemia in other chronic diseases classified elsewhere; I35.0 Nonrheumatic aortic (valve) stenosis; I87.2 Venous insufficiency (chronic) (peripheral); E11.65 Type 2 diabetes mellitus with hyperglycemia; K29.50 Unspecified chronic gastritis without bleeding; M62.830 Muscle spasm of back; K27.9 Peptic ulcer, site unspecified, unspecified as acute or chronic, without hemorrhage or perforation; E66.01 Morbid (severe) obesity due to excess calories; N18.3 Chronic kidney disease, stage 3 (moderate); E11.21 Type 2 diabetes mellitus with diabetic nephropathy; I50.812 Chronic right heart failure; E78.5 Hyperlipidemia, unspecified; B96.20 Unspecified Escherichia coli [E. coli] as the cause of diseases classified elsewhere; I27.29 Other secondary pulmonary hypertension; I48.91 Unspecified atrial fibrillation; E11.22 Type 2 diabetes mellitus with diabetic chronic kidney disease; R32 Unspecified urinary incontinence; R15.9 Full incontinence of feces; Z79.01 Long term (current) use of anticoagulants; Z95.0 Presence of cardiac pacemaker; Z79.4 Long term (current) use of insulin; Z79.899 Other long term (current) drug therapy

== ENCOUNTER → 2018-11-01 | Outpatient (REF) | payer MEDICARE, MEDICAID ==
[2018-11-01 12:06] LABS: HEMATOCRIT 33.6 % (36.0-47.0); HEMOGLOBIN 9.5 g/dl (12.0-15.5); MEAN CORPUSCULAR HEMOGLOBIN 23.5 pg (27.0-33.0); MEAN CORPUSCULAR HGB CONC 28.3 g/dl (32.0-36.5); MEAN CORPUSCULAR VOLUME 83.2 fl (80.0-96.0); PLATELET COUNT, AUTOMATED 251 10^3/uL (150-450); RED BLOOD COUNT 4.04 10^6/uL (4.00-5.40); RED CELL DISTRIBUTION WIDTH 18.4 % (11.5-14.5); WHITE BLOOD COUNT 16.1 10^3/uL (4.0-10.0)
[2018-11-01 12:37] LABS: BLOOD UREA NITROGEN 42 MG/DL (7-18); CARBON DIOXIDE LEVEL 18 MEQ/L (21-32); CHLORIDE LEVEL 107 MEQ/L (98-107); CREATININE FOR GFR 1.66 MG/DL (0.55-1.30); GLOMERULAR FILTRATION RATE 32.1 (>39); GLUCOSE, FASTING 268 MG/DL (70-100); POTASSIUM SERUM 4.4 MEQ/L (3.5-5.1); SODIUM LEVEL 138 MEQ/L (136-145)
[2018-11-01 12:38] LABS: ANION GAP 13 MEQ/L (8-16); CALCIUM LEVEL 8.6 MG/DL (8.8-10.2)
== END ==
DX: M62.81 Muscle weakness (generalized) (principal)

== ENCOUNTER → 2018-11-07 | Outpatient (REF) | payer MEDICARE, MEDICAID ==
[2018-11-07 09:35] LABS: HEMATOCRIT 33.7 % (36.0-47.0); HEMOGLOBIN 9.4 g/dl (12.0-15.5); MEAN CORPUSCULAR HEMOGLOBIN 23.3 pg (27.0-33.0); MEAN CORPUSCULAR HGB CONC 27.9 g/dl (32.0-36.5); MEAN CORPUSCULAR VOLUME 83.4 fl (80.0-96.0); PLATELET COUNT, AUTOMATED 268 10^3/uL (150-450); RED BLOOD COUNT 4.04 10^6/uL (4.00-5.40); RED CELL DISTRIBUTION WIDTH 18.9 % (11.5-14.5); WHITE BLOOD COUNT 11.8 10^3/uL (4.0-10.0)
[2018-11-07 11:45] LABS: ANION GAP 10 MEQ/L (8-16); BLOOD UREA NITROGEN 43 MG/DL (7-18); CALCIUM LEVEL 8.9 MG/DL (8.8-10.2); CARBON DIOXIDE LEVEL 20 MEQ/L (21-32); CHLORIDE LEVEL 111 MEQ/L (98-107); GLUCOSE, FASTING 195 MG/DL (70-100); NT-PRO BNP 5794 PG/ML (<450); SODIUM LEVEL 141 MEQ/L (136-145)
[2018-11-07 13:20] LABS: DIGOXIN LEVEL 1.3 NG/ML (0.5-2.0)
[2018-11-07 15:53] LABS: ESTIMATED AVERAGE GLUCOSE 286 MG/DL (60-110); HEMOGLOBIN A1c 11.6 %
== END ==
DX: I48.91 Unspecified atrial fibrillation (principal); I50.9 Heart failure, unspecified; N18.9 Chronic kidney disease, unspecified; Z79.899 Other long term (current) drug therapy
CPT/HCPCS: 80162

== ENCOUNTER → 2018-11-14 | Outpatient (REF) | payer MEDICARE, MEDICAID ==
[2018-11-14 12:31] LABS: HEMATOCRIT 34.6 % (36.0-47.0); HEMOGLOBIN 9.4 g/dl (12.0-15.5); MEAN CORPUSCULAR HEMOGLOBIN 22.8 pg (27.0-33.0); MEAN CORPUSCULAR HGB CONC 27.2 g/dl (32.0-36.5); MEAN CORPUSCULAR VOLUME 83.8 fl (80.0-96.0); PLATELET COUNT, AUTOMATED 280 10^3/uL (150-450); RED BLOOD COUNT 4.13 10^6/uL (4.00-5.40); WHITE BLOOD COUNT 6.7 10^3/uL (4.0-10.0)
[2018-11-14 13:00] LABS: ANION GAP 10 MEQ/L (8-16); BLOOD UREA NITROGEN 29 MG/DL (7-18); CALCIUM LEVEL 8.8 MG/DL (8.8-10.2); CARBON DIOXIDE LEVEL 24 MEQ/L (21-32); CHLORIDE LEVEL 107 MEQ/L (98-107); CREATININE FOR GFR 1.33 MG/DL (0.55-1.30); GLOMERULAR FILTRATION RATE 41.4 (>39); GLUCOSE, FASTING 251 MG/DL (70-100); NT-PRO BNP 4741 PG/ML (<450); SODIUM LEVEL 141 MEQ/L (136-145)
== END ==
DX: I50.9 Heart failure, unspecified (principal); N18.9 Chronic kidney disease, unspecified
CPT/HCPCS: 80048

== ENCOUNTER 2018-11-18 19:18 | Emergency (ER) | payer MEDICARE, MEDICAID ==
[~2018-11-18 19:18] MED LIST changes: +ACET1TAB55 PO; +AMOX500C PO; +BACL10TA2 PO; +BENT10CA PO; +BENZ-18 PO; +CEFD1CAP8 PO; +DIGO0.12 PO; -DRIS50002 PO; +DRIS50003 PO; +DULC10SU2 PR; -ENEMENE16 PR; +ENEMENE4 PR; +ENEMENE6 PR; +EUCECRE3 TOP; +FLON1SPR NARES; +GLUC1KIT IM; +GUAI100S27 PO; -LASI20TA PO; +LASI20TA3 PO; +LASI40TA9 PO; +LEVA0.636 INH; -LEVA1TAB PO; +LEVA250T13 PO; -LISI2.5T3 PO; +LISI2.5T5 PO; +LOPE2CAP PO; +MILK120011 PO; -MILKSUS PO; +OSEL75CA PO; -PANT40TA2 PO; +PANT40TA3 PO; -RAMI10CA PO; +RAMI1CAP24 PO; +RAMI1CAP26 PO; -RAMI5CA PO; +SARN1LOT3 TOP; -SARNLOT TOP; +TRAM50TA2 PO; +TYLE500T78 PO; +[UNRECOGNIZED DRUG - CODE]; +[UNRECOGNIZED DRUG - CODE] MT
[2018-11-18] MEDS ORDERED: COLA100C5 PO (20:09)
[2018-11-18] MEDS ORDERED: BENGGEL2 TOP (20:12)
[2018-11-18] MEDS ORDERED: INSUDET SC (20:15)
[2018-11-18 20:27] LABS: BASO # 0.1 10^3/uL (0.0-0.2); BASO % 0.8 % (0.0-1.0); EOS # 0.2 10^3/uL (0.0-0.50); EOS % 1.7 % (0.0-3.0); HEMATOCRIT 33.5 % (36.0-47.0); HEMOGLOBIN 9.4 g/dl (12.0-15.5); LYMPH # 0.6 10^3/uL (1.5-4.5); LYMPH % 6.4 % (24.0-44.0); MEAN CORPUSCULAR HGB CONC 28.1 g/dl (32.0-36.5); MEAN CORPUSCULAR VOLUME 81.9 fl (80.0-96.0); MONO # 0.7 10^3/uL (0.0-0.8); MONO % 7.5 % (0.0-5.0); NEUTROPHILS # 7.2 10^3/uL (1.8-7.7); NEUTROPHILS % 82.8 % (36.0-66.0); PLATELET COUNT, AUTOMATED 252 10^3/uL (150-450); RED BLOOD COUNT 4.09 10^6/uL (4.00-5.40); WHITE BLOOD COUNT 8.7 10^3/uL (4.0-10.0)
[2018-11-18 20:57] LABS: APPEARANCE, URINE CLEAR (CLEAR); BACTERIA, URINE AUTO NEGATIVE (NEGATIVE); BILIRUBIN, URINE AUTO NEGATIVE (NEGATIVE); BLOOD, URINE BLOOD NEGATIVE (NEGATIVE); COLOR, URINE YELLOW (YELLOW); GLUCOSE, URINE (UA) AUTO NEGATIVE (NEGATIVE); KETONE, URINE AUTO NEGATIVE (NEGATIVE); LEUKOCYTE ESTERASE, URINE AUTO NEGATIVE (NEGATIVE); NITRITE, URINE AUTO NEGATIVE (NEGATIVE); PROTEIN, URINE AUTO NEGATIVE (NEGATIVE); RBC, URINE AUTO 2 /HPF (0-3); SQUAMOUS EPITHELIAL CELL UR AU 0 /HPF (0-6); UROBILINOGEN, URINE AUTO 0.2 mg/dL (0.0-2.0); WBC, URINE AUTO 2 /HPF (0-3)
[2018-11-18 21:14] LABS: ALBUMIN 2.2 GM/DL (3.2-5.2); BILIRUBIN,DIRECT 0.4 MG/DL (0.0-0.2); BILIRUBIN,TOTAL 0.7 MG/DL (0.2-1.0); CALCIUM LEVEL 9.3 MG/DL (8.8-10.2); CREATININE FOR GFR 1.25 MG/DL (0.55-1.30); GLOMERULAR FILTRATION RATE 44.5 (>39); POTASSIUM SERUM 4.1 MEQ/L (3.5-5.1); TOTAL PROTEIN 6.1 GM/DL (6.4-8.2)
[2018-11-18 23:01] VITALS: BP 161/73
== END 2018-11-18 23:21 | disposition home or self-care (01) ==
LOC: M ED 19:18 → EDBD 19:18 → M ED 23:21
DX: Z04.89 Encounter for examination and observation for other specified reasons (principal); R50.9 Fever, unspecified; E11.9 Type 2 diabetes mellitus without complications; I48.91 Unspecified atrial fibrillation; Z79.899 Other long term (current) drug therapy; Z79.4 Long term (current) use of insulin; Z88.1 Allergy status to other antibiotic agents

== ENCOUNTER → 2018-11-29 | Outpatient (REF) | payer MEDICARE, MEDICAID ==
[~2018-11-29] MED LIST changes: +BENGGEL2 TOP; +COLA100C5 PO; +ENEMENE16 PR; -ENEMENE4 PR; +LASI20TA PO; -LASI20TA3 PO; +LASI40TA PO; -LASI40TA9 PO; -MILK120011 PO; +MILK12002 PO; -SARN1LOT3 TOP; +SARNLOT TOP
--- NOTE | 2018-11-29 14:12 | REP ---
BILATERAL KNEES, EIGHT VIEWS: HISTORY: Pain. COMPARISON: 11/08/2006. RIGHT KNEE: There is no acute fracture or dislocation. There is severe narrowing of the joint spaces with associated sclerosis and irregularity of the distal femur and proximal tibia. Osteophytes are present on the femur, tibia, and patella. The bony structure is osteopenic. IMPRESSION: Degenerative change as described above. LEFT KNEE: There is no acute fracture or dislocation. There is severe narrowing of the joint spaces with associated sclerosis and irregularity of the distal femur and proximal tibia. Osteophytes are present on the femur, tibia, and patella. Calcifications are present in the soft tissue medial to the joint space. This represents ligamentous or tendon calcification. The bony structure is osteopenic. IMPRESSION: Degenerative change as described above. Electronically Signed by Juan Montoya MD 11/29/2018 02:20 P
== END ==
PROVIDERS: ATTEND Internal Medicine
DX: M25.561 Pain in right knee (principal); M25.562 Pain in left knee

== ENCOUNTER → 2018-12-04 | Outpatient (REF) | payer MEDICARE, MEDICAID ==
[~2018-12-04] MED LIST changes: -ENEMENE16 PR; +ENEMENE4 PR; -LASI20TA PO; +LASI20TA3 PO; -LASI40TA PO; +LASI40TA9 PO; +MILK120011 PO; -MILK12002 PO; +SARN1LOT3 TOP; -SARNLOT TOP
== END ==
PROVIDERS: ATTEND Internal Medicine
DX: I48.91 Unspecified atrial fibrillation (principal)

== ENCOUNTER 2018-12-14 08:29 | Day surgery (SDC) | payer MEDICARE, MEDICAID ==
[~2018-12-14] VITALS: Ht 162.6 cm; Wt 121.7 kg
[~2018-12-14 08:29] MED LIST changes: +LIDOCAINE 2% INJ 100 MG/5 ML SDV (FOR ANES.) As Ordered ONE; +NS 1,000 ML IV SCH; +PROPOFOL 200 MG/20 ML VIAL As Ordered ONE
--- NOTE | 2018-12-14 11:20 | ROOR ---
Patient Name: Karen Painter Procedure Date: 12/14/2018 10:02 AM Date of : 1945 Age: 73 Room: [facility] Gender: Female Note Status: Finalized Procedure: Upper GI endoscopy Indications: Follow-up of gastric ulcer Providers: Arthur Fitch MD Referring MD: OSITO ROCHE JR, MD Requesting Provider: Medicines: Monitored Anesthesia Care Complications: No immediate complications. Procedure: Pre-Anesthesia Assessment: - Prior to the procedure, a History and Physical was performed, and patient medications and allergies were reviewed. The patient is competent. The risks and benefits of the procedure and the sedation options and risks were discussed with the patient. All questions were answered and informed consent was obtained. Patient identification and proposed procedure were verified by the physician, the nurse and the anesthesiologist in the procedure room. Mental Status Examination: alert and oriented. Airway Examination: normal oropharyngeal airway and neck mobility. Respiratory Examination: clear to auscultation. CV Examination: normal. Prophylactic Antibiotics: The patient does not require prophylactic antibiotics. Prior Anticoagulants: The patient has taken Xarelto (rivaroxaban), last dose was 2 days prior to procedure. ASA Grade Assessment: III - A patient with severe systemic disease. After reviewing the risks and benefits, the patient was deemed in satisfactory condition to undergo the procedure. The anesthesia plan was to use monitored anesthesia care (MAC). Immediately prior to administration of medications, the patient was re-assessed for adequacy to receive sedatives. The heart rate, respiratory rate, oxygen saturations, blood pressure, adequacy of pulmonary ventilation, and response to care were monitored throughout the procedure. The physical status of the patient was re-assessed after the procedure. The Endoscope was introduced through the mouth, and advanced to the second part of duodenum. The upper GI endoscopy was accomplished without difficulty. The patient tolerated the procedure well. Findings: The examined esophagus was normal. Diffuse moderate inflammation characterized by erythema and granularity was found in the gastric antrum. Biopsies were taken with a cold forceps for histology. Verification of patient identification for the specimen was done by the physician and nurse using the patient's name, date and medical record number. Estimated blood loss was minimal. A 10 mm healed ulcer was found in the gastric antrum. Adjacent mucosal findings include congestion and nodularity. Biopsies were taken with a cold forceps for histology. The duodenal bulb and second portion of the duodenum were normal. Impression: - Normal esophagus. - Gastritis. Biopsied. - Scar in the gastric antrum. Biopsied. - Normal duodenal bulb and second portion of the duodenum. Recommendation: - Patient has a contact number available for emergencies. The signs and symptoms of potential delayed complications were discussed with the patient. Return to normal activities tomorrow. Written discharge instructions were provided to the patient. - Resume previous diet. - Resume Xarelto (rivaroxaban) at prior dose tomorrow. Refer to managing physician for further adjustment of therapy. - Await pathology results. - Use Protonix (pantoprazole) 40 mg PO twice daily - to be taken in morning (1/2 hour before breakfast) and at bedtime ( atleast 3 hours after last meal) for 6 weeks. - Based on the biopsy results you will receive a phone call from GI clinic in 2-3 weeks to review the pathology results AND/OR your results will be faxed to your Primary care physician. - Return to primary care physician. Arthur Fitch MD Arthur Fitch MD 12/14/2018 11:19:37 AM This report has been signed electronically. Number of Addenda: 0 Note Initiated On: 12/14/2018 10:02 AM Estimated Blood Loss: Estimated blood loss was minimal.
--- NOTE | 2018-12-14 11:23 | ROOR ---
Patient Name: Karen Painter Procedure Date: 12/14/2018 10:03 AM Date of : 1945 Age: 73 Room: [facility] Gender: Female Note Status: Finalized Procedure: Colonoscopy Indications: Therapeutic procedure for colon polyps, Therapeutic procedure for known colon polyps Providers: Arthur Fitch MD Referring MD: OSITO ROCHE JR, MD Requesting Provider: Medicines: Monitored Anesthesia Care Complications: No immediate complications. Procedure: Pre-Anesthesia Assessment: - Prior to the procedure, a History and Physical was performed, and patient medications and allergies were reviewed. The patient is competent. The risks and benefits of the procedure and the sedation options and risks were discussed with the patient. All questions were answered and informed consent was obtained. Patient identification and proposed procedure were verified by the physician, the nurse and the anesthesiologist in the procedure room. Mental Status Examination: alert and oriented. Airway Examination: normal oropharyngeal airway and neck mobility. Respiratory Examination: clear to auscultation. CV Examination: normal. Prophylactic Antibiotics: The patient does not require prophylactic antibiotics. Prior Anticoagulants: The patient has taken no previous anticoagulant or antiplatelet agents. ASA Grade Assessment: II - A patient with mild systemic disease. After reviewing the risks and benefits, the patient was deemed in satisfactory condition to undergo the procedure. The anesthesia plan was to use monitored anesthesia care (MAC). Immediately prior to administration of medications, the patient was re-assessed for adequacy to receive sedatives. The heart rate, respiratory rate, oxygen saturations, blood pressure, adequacy of pulmonary ventilation, and response to care were monitored throughout the procedure. The physical status of the patient was re-assessed after the procedure. The Colonoscope was introduced through the anus and advanced to the terminal ileum, with identification of the appendiceal orifice and IC valve. The colonoscopy was performed without difficulty. The patient tolerated the procedure well. The quality of the bowel preparation was [Prep Quality]. [Anatomical Structures]. Findings: The perianal and digital rectal examinations were normal. The terminal ileum appeared normal. A 5 mm polyp was found in the cecum. The polyp was sessile. The polyp was removed with a cold biopsy forceps. Resection and retrieval were complete. Verification of patient identification for the specimen was done by the physician and nurse using the patient's name, date and medical record number. Estimated blood loss was minimal. Multiple sessile polyps were found in the transverse colon and ascending colon. The polyps were 6 to 15 mm in size. These polyps were removed with a cold snare. Resection and retrieval were complete. To close a defect after polypectomy, five hemostatic clips were successfully placed. There was no bleeding at the end of the procedure. Multiple small and large-mouthed diverticula were found in the sigmoid colon. There was no evidence of diverticular bleeding. Non-bleeding external and internal hemorrhoids were found during retroflexion. The hemorrhoids were medium-sized. Impression: - The examined portion of the ileum was normal. - One 5 mm polyp in the cecum, removed with a cold biopsy forceps. Resected and retrieved. - Multiple 6 to 15 mm polyps in the transverse colon and in the ascending colon, removed with a cold snare. Resected and retrieved. Clips were placed. - Moderate diverticulosis in the sigmoid colon. There was no evidence of diverticular bleeding. - Non-bleeding external and internal hemorrhoids. Recommendation: - Patient has a contact number available for emergencies. The signs and symptoms of potential delayed complications were discussed with the patient. Return to normal activities tomorrow. Written discharge instructions were provided to the patient. - High fiber diet. - Resume Xarelto (rivaroxaban) at prior dose tomorrow. Refer to managing physician for further adjustment of therapy. - Continue present medications. - Await pathology results. - Repeat colonoscopy in 1 year for surveillance based on pathology results and for surveillance of multiple polyps. - Based on the biopsy results you will receive a phone call from GI clinic in 2-3 weeks to review the pathology results AND/OR your results will be faxed to your Primary care physician. - Return to primary care physician. Arthur Fitch MD Arthur Fitch MD 12/14/2018 11:23:33 AM This report has been signed electronically. Number of Addenda: 0 Note Initiated On: 12/14/2018 10:03 AM Estimated Blood Loss: Estimated blood loss was minimal.
[2018-12-14 12:00] VITALS: BP 135/61
[2018-12-14] MEDS ORDERED: PROPOFOL 200 MG/20 ML VIAL As Ordered ONE (12:48)
== END 2018-12-14 12:05 | disposition home or self-care (01) ==
LOC: M OPP 08:29
PROVIDERS: ATTEND Internal Medicine Gastroenterology
DX: Z86.010 Personal history of colon polyps (principal); K64.8 Other hemorrhoids; D12.0 Benign neoplasm of cecum; D12.3 Benign neoplasm of transverse colon; D12.2 Benign neoplasm of ascending colon; K57.30 Diverticulosis of large intestine without perforation or abscess without bleeding; K29.70 Gastritis, unspecified, without bleeding; K31.89 Other diseases of stomach and duodenum; K25.9 Gastric ulcer, unspecified as acute or chronic, without hemorrhage or perforation; E11.9 Type 2 diabetes mellitus without complications; I48.91 Unspecified atrial fibrillation; I50.9 Heart failure, unspecified; Z79.4 Long term (current) use of insulin; Z79.899 Other long term (current) drug therapy; Z88.8 Allergy status to other drugs, medicaments and biological substances; Z95.0 Presence of cardiac pacemaker

== ENCOUNTER → 2018-12-14 | Outpatient (REF) | payer MEDICARE, MEDICAID | PROVIDERS: ATTEND Internal Medicine | DX: I50.9 Heart failure, unspecified (principal) ==

== ENCOUNTER → 2018-12-17 | Outpatient (REF) | payer MEDICARE, MEDICAID ==
[~2018-12-17] MED LIST changes: -LIDOCAINE 2% INJ 100 MG/5 ML SDV (FOR ANES.) As Ordered ONE; -NS 1,000 ML IV SCH; -PROPOFOL 200 MG/20 ML VIAL As Ordered ONE
[2018-12-17 10:14] LABS: CALCIUM LEVEL 9.3 MG/DL (8.8-10.2); CREATININE FOR GFR 1.6 MG/DL (0.55-1.30); GLOMERULAR FILTRATION RATE 33.5 (>39); POTASSIUM SERUM 3.6 MEQ/L (3.5-5.1)
== END ==
PROVIDERS: ATTEND Internal Medicine
DX: I50.9 Heart failure, unspecified (principal)

== ENCOUNTER → 2019-01-29 | Outpatient (REF) | payer MEDICARE, MEDICAID ==
[2019-01-29 09:53] LABS: HEMATOCRIT 33.4 % (36.0-47.0); HEMOGLOBIN 9.2 g/dl (12.0-15.5); MEAN CORPUSCULAR HEMOGLOBIN 22.5 pg (27.0-33.0); MEAN CORPUSCULAR HGB CONC 27.5 g/dl (32.0-36.5); MEAN CORPUSCULAR VOLUME 81.7 fl (80.0-96.0); PLATELET COUNT, AUTOMATED 191 10^3/uL (150-450); RED BLOOD COUNT 4.09 10^6/uL (4.00-5.40)
[2019-01-29 12:40] LABS: HEMOGLOBIN A1c 9.9 %
[2019-01-29 13:15] LABS: CREATININE FOR GFR 1.96 MG/DL (0.55-1.30); DIGOXIN LEVEL 1.4 NG/ML (0.5-2.0); GLOMERULAR FILTRATION RATE 26.5 (>39); POTASSIUM SERUM 4.6 MEQ/L (3.5-5.1)
== END ==
PROVIDERS: ATTEND Internal Medicine
DX: I50.9 Heart failure, unspecified (principal); N18.9 Chronic kidney disease, unspecified; Z79.899 Other long term (current) drug therapy

== ENCOUNTER → 2019-02-06 | Outpatient (REF) ==
[2019-02-06 10:18] LABS: CALCIUM LEVEL 9.6 MG/DL (8.8-10.2); CREATININE FOR GFR 2.15 MG/DL (0.55-1.30); GLOMERULAR FILTRATION RATE 23.8 (>39); POTASSIUM SERUM 4.4 MEQ/L (3.5-5.1)
== END ==
PROVIDERS: ATTEND Internal Medicine
DX: I50.9 Heart failure, unspecified (principal); N18.9 Chronic kidney disease, unspecified

== ENCOUNTER → 2019-02-08 | Outpatient (REF) ==
[2019-02-08 11:26] LABS: CALCIUM LEVEL 9.6 MG/DL (8.8-10.2); CREATININE FOR GFR 2.01 MG/DL (0.55-1.30); GLOMERULAR FILTRATION RATE 25.7 (>39); POTASSIUM SERUM 4.5 MEQ/L (3.5-5.1)
== END ==
PROVIDERS: ATTEND Internal Medicine
DX: N18.9 Chronic kidney disease, unspecified (principal)

== ENCOUNTER → 2019-02-13 | Outpatient (REF) ==
[2019-02-13 09:23] LABS: CALCIUM LEVEL 9.2 MG/DL (8.8-10.2); CREATININE FOR GFR 1.93 MG/DL (0.55-1.30); GLOMERULAR FILTRATION RATE 26.9 (>39); POTASSIUM SERUM 4.7 MEQ/L (3.5-5.1)
== END ==
PROVIDERS: ATTEND Nurse Practitioner Adult Health
DX: N18.9 Chronic kidney disease, unspecified (principal)

== ENCOUNTER → 2019-03-28 | Outpatient (REF) | payer MEDICARE, MEDICAID ==
[~2019-03-28] MED LIST changes: -/ESOM40CA; -/PRAV20TA; -/WARF4TA; -BISO10TA PO; +BISO10TA13 PO; +COUM1TAB14; +GUAI100L6 PO; -GUAI100S27 PO; +LINE1TAB PO; -LINE60TAB PO; +LISI-1046 PO; -LISI2.5T5 PO; -MAGN1TAB25 PO; +MAGN1TAB26 PO; +NEXI1CAP3; +NYST-15 TOP; -NYST10PW TOP; +PRAV1TAB39
== END ==
PROVIDERS: ATTEND Internal Medicine
DX: R19.5 Other fecal abnormalities (principal)

== ENCOUNTER → 2019-04-11 | Outpatient (REF) ==
[2019-04-11 18:47] LABS: APPEARANCE, URINE HAZY (CLEAR); BACTERIA, URINE AUTO 2+ (NEGATIVE); BILIRUBIN, URINE AUTO NEGATIVE (NEGATIVE); BLOOD, URINE BLOOD 1+ (NEGATIVE); COLOR, URINE YELLOW (YELLOW); GLUCOSE, URINE (UA) AUTO NEGATIVE (NEGATIVE); KETONE, URINE AUTO NEGATIVE (NEGATIVE); LEUKOCYTE ESTERASE, URINE AUTO 3+ (NEGATIVE); NITRITE, URINE AUTO NEGATIVE (NEGATIVE); PROTEIN, URINE AUTO NEGATIVE (NEGATIVE); RBC, URINE AUTO 19 /HPF (0-3); SPECIFIC GRAVITY URINE AUTO 1.008 (1.002-1.035); SQUAMOUS EPITHELIAL CELL UR AU 2 /HPF (0-6); UROBILINOGEN, URINE AUTO 0.2 mg/dL (0.0-2.0); WBC, URINE AUTO 135 /HPF (0-3)
== END ==
PROVIDERS: ATTEND Nurse Practitioner Adult Health
DX: R82.5 Elevated urine levels of drugs, medicaments and biological substances (principal)

== ENCOUNTER → 2019-04-12 | Outpatient (REF) | payer MEDICARE, MEDICAID ==
[2019-04-12 17:27] LABS: AMORPHOUS SEDIMENT SMALL (NEGATIVE); APPEARANCE, URINE HAZY (CLEAR); BACTERIA, URINE AUTO NEGATIVE (NEGATIVE); BILIRUBIN, URINE AUTO NEGATIVE (NEGATIVE); BLOOD, URINE BLOOD 2+ (NEGATIVE); COLOR, URINE YELLOW (YELLOW); GLUCOSE, URINE (UA) AUTO NEGATIVE (NEGATIVE); KETONE, URINE AUTO NEGATIVE (NEGATIVE); LEUKOCYTE ESTERASE, URINE AUTO 3+ (NEGATIVE); MUCUS, URINE SMALL (NEGATIVE); NITRITE, URINE AUTO NEGATIVE (NEGATIVE); PROTEIN, URINE AUTO NEGATIVE (NEGATIVE); RBC, URINE AUTO 6 /HPF (0-3); SPECIFIC GRAVITY URINE AUTO 1.006 (1.002-1.035); SQUAMOUS EPITHELIAL CELL UR AU 2 /HPF (0-6); UROBILINOGEN, URINE AUTO 0.2 mg/dL (0.0-2.0); WBC, URINE AUTO 97 /HPF (0-3)
== END ==
PROVIDERS: ATTEND Internal Medicine
DX: R82.5 Elevated urine levels of drugs, medicaments and biological substances (principal); M54.9 Dorsalgia, unspecified; R73.9 Hyperglycemia, unspecified

== ENCOUNTER → 2019-05-01 | Outpatient (REF) ==
[2019-05-01 10:10] LABS: HEMATOCRIT 29.7 % (36.0-47.0); HEMOGLOBIN 7.7 g/dl (12.0-15.5); MEAN CORPUSCULAR HEMOGLOBIN 21.4 pg (27.0-33.0); MEAN CORPUSCULAR HGB CONC 25.9 g/dl (32.0-36.5); MEAN CORPUSCULAR VOLUME 82.5 fl (80.0-96.0); PLATELET COUNT, AUTOMATED 197 10^3/uL (150-450); WHITE BLOOD COUNT 5.2 10^3/uL (4.0-10.0)
[2019-05-01 10:27] LABS: HEMOGLOBIN A1c 8.6 %
[2019-05-01 10:54] LABS: CALCIUM LEVEL 9.9 MG/DL (8.8-10.2); CREATININE FOR GFR 1.79 MG/DL (0.55-1.30); GLOMERULAR FILTRATION RATE 29.3 (>39)
== END ==
PROVIDERS: ATTEND Nurse Practitioner Adult Health
DX: I50.9 Heart failure, unspecified (principal)

== ENCOUNTER → 2019-05-03 | Outpatient (REF) ==
[2019-05-03 11:04] LABS: HEMATOCRIT 30.1 % (36.0-47.0); HEMOGLOBIN 7.8 g/dl (12.0-15.5); MEAN CORPUSCULAR HEMOGLOBIN 21.5 pg (27.0-33.0); MEAN CORPUSCULAR HGB CONC 25.9 g/dl (32.0-36.5); MEAN CORPUSCULAR VOLUME 82.9 fl (80.0-96.0); PLATELET COUNT, AUTOMATED 195 10^3/uL (150-450); RED BLOOD COUNT 3.63 10^6/uL (4.00-5.40); WHITE BLOOD COUNT 5.2 10^3/uL (4.0-10.0)
== END ==
PROVIDERS: ATTEND Internal Medicine
DX: I48.91 Unspecified atrial fibrillation (principal)

== ENCOUNTER → 2019-05-06 | Outpatient (REF) | payer MEDICARE, MEDICAID ==
[2019-05-06 13:56] LABS: HEMATOCRIT 32.1 % (36.0-47.0); HEMOGLOBIN 8.3 g/dl (12.0-15.5)
== END ==
PROVIDERS: ATTEND Internal Medicine
DX: D64.9 Anemia, unspecified (principal)

== ENCOUNTER → 2019-05-13 | Outpatient (REF) | payer MEDICARE, MEDICAID | PROVIDERS: ATTEND Nurse Practitioner Adult Health | DX: D64.9 Anemia, unspecified (principal) ==

== ENCOUNTER → 2019-05-14 | Outpatient (REF) ==
[2019-05-14 09:31] LABS: HEMATOCRIT 28.5 % (36.0-47.0); HEMOGLOBIN 7.2 g/dl (12.0-15.5)
== END ==
PROVIDERS: ATTEND Internal Medicine
DX: D64.9 Anemia, unspecified (principal)

== ENCOUNTER → 2019-05-21 | Outpatient (REF) ==
[2019-05-21 10:33] LABS: FERRITIN 6 NG/ML (8-252); IRON (FE) 19 UG/DL (50-170); PERCENT SATURATION 5.5 % (13.2-45.0); TOTAL IRON BINDING CAPACITY 346 UG/DL (250-450)
[2019-05-21 10:39] LABS: VITAMIN B12 LEVEL > 2000 PG/ML (247-911)
[2019-05-21 10:40] LABS: FOLATE 11.7 NG/ML (>5.4)
== END ==
PROVIDERS: ATTEND Nurse Practitioner Adult Health
DX: D64.9 Anemia, unspecified (principal)

== ENCOUNTER → 2019-05-29 | Outpatient (REF) | PROVIDERS: ATTEND Nurse Practitioner Adult Health | DX: I48.91 Unspecified atrial fibrillation (principal) ==

== ENCOUNTER → 2019-06-04 | Outpatient (REF) ==
[~2019-06-04] MED LIST changes: +TORS10TA3 PO
[2019-06-04 09:28] LABS: ALBUMIN 2.9 GM/DL (3.2-5.2); CALCIUM LEVEL 9.3 MG/DL (8.8-10.2); CREATININE FOR GFR 2.32 MG/DL (0.55-1.30); GLOMERULAR FILTRATION RATE 21.7 (>39); PHOSPHORUS LEVEL 4.3 MG/DL (2.5-4.9); POTASSIUM SERUM 4.7 MEQ/L (3.5-5.1)
[2019-06-04 10:49] LABS: HEMATOCRIT 29.1 % (36.0-47.0); HEMOGLOBIN 7.4 g/dl (12.0-15.5); MEAN CORPUSCULAR HEMOGLOBIN 21.2 pg (27.0-33.0); MEAN CORPUSCULAR HGB CONC 25.4 g/dl (32.0-36.5); MEAN CORPUSCULAR VOLUME 83.4 fl (80.0-96.0); PLATELET COUNT, AUTOMATED 168 10^3/uL (150-450); RED BLOOD COUNT 3.49 10^6/uL (4.00-5.40); WHITE BLOOD COUNT 6.1 10^3/uL (4.0-10.0)
--- NOTE | 2019-06-04 16:47 | REP ---
Portable chest x-ray: Single view. History: Shortness of breath. Comparison study: November 01, 2018. Findings: Pacemaker is seen in place in the right heart via the left side. Moderate to marked cardiomegaly is again observed. Image quality is impaired by patient body habitus. No focal infiltrate is appreciated. No definite effusion or pulmonary edema. Impression: Moderate to marked cardiomegaly with pacemaker. No definite infiltrate, effusion, or pulmonary edema. Electronically Signed by Chi Kirby MD 06/04/2019 04:39 P
== END ==
PROVIDERS: ATTEND Internal Medicine
DX: I50.9 Heart failure, unspecified (principal)

== ENCOUNTER 2019-06-06 09:51 | Outpatient (CLI) | payer MEDICARE ==
[~2019-06-06] VITALS: Ht 162.6 cm; Wt 121.0 kg
[~2019-06-06 09:51] MED LIST changes: -TORS10TA3 PO
[2019-06-06 10:37] VITALS: BP 126/55
[2019-06-06] MEDS ORDERED: TORS10TA3 PO (10:51)
[2019-06-06] MEDS ORDERED: IRON SUCROSE 25 MG in NS 50 ML IV ONE (11:00)
[2019-06-06] MEDS ORDERED: IRON SUCROSE 475 MG in NS 250 ML IV ONE (11:00)
[2019-06-06 11:45] VITALS: BP 132/61
[2019-06-06 12:45] VITALS: BP 141/59
[2019-06-06 13:47] VITALS: BP 122/54
[2019-06-06 14:45] VITALS: BP 124/61
[2019-06-06 15:45] VITALS: BP 143/62
== END 2019-06-06 15:45 | disposition home or self-care (01) ==
LOC: M INFU 09:51
PROVIDERS: ATTEND Nurse Practitioner Adult Health
DX: N18.4 Chronic kidney disease, stage 4 (severe) (principal); D50.9 Iron deficiency anemia, unspecified
CPT/HCPCS: 96365; 96366; 96376; J1756

== ENCOUNTER → 2019-06-18 | Outpatient (REF) ==
[~2019-06-18] MED LIST changes: +TORS10TA3 PO
[2019-06-18 09:24] LABS: HEMOGLOBIN 7.5 g/dl (12.0-15.5); MEAN CORPUSCULAR HEMOGLOBIN 23.6 pg (27.0-33.0); MEAN CORPUSCULAR HGB CONC 24.2 g/dl (32.0-36.5); MEAN CORPUSCULAR VOLUME 97.5 fl (80.0-96.0); PLATELET COUNT, AUTOMATED 166 10^3/uL (150-450); RED BLOOD COUNT 3.18 10^6/uL (4.00-5.40); WHITE BLOOD COUNT 7.5 10^3/uL (4.0-10.0)
== END ==
PROVIDERS: ATTEND Internal Medicine
DX: D64.9 Anemia, unspecified (principal)

== ENCOUNTER → 2019-06-22 | Outpatient (REF) | payer MEDICARE, MEDICAID ==
[~2019-06-22] MED LIST changes: +ACET-897 PO; +EUCECRE8 TOP; +FERR1TAB8 PO; +FLON1SPR; -FLON1SPR NARES; +MILKSUS3 PO; +SILV50CR TOP; +TORS20TA2 PO; +ZOFR4TAB16 PO
[2019-06-22 07:30] LABS: HEMATOCRIT 30.4 % (36.0-47.0); HEMOGLOBIN 7.8 g/dl (12.0-15.5); MEAN CORPUSCULAR HEMOGLOBIN 25.1 pg (27.0-33.0); MEAN CORPUSCULAR HGB CONC 25.7 g/dl (32.0-36.5); MEAN CORPUSCULAR VOLUME 97.7 fl (80.0-96.0); PLATELET COUNT, AUTOMATED 259 10^3/uL (150-450); RED BLOOD COUNT 3.11 10^6/uL (4.00-5.40); WHITE BLOOD COUNT 8.8 10^3/uL (4.0-10.0)
== END ==
PROVIDERS: ATTEND Nurse Practitioner Acute Care
DX: Z12.11 Encounter for screening for malignant neoplasm of colon (principal); I50.9 Heart failure, unspecified; N18.9 Chronic kidney disease, unspecified; E03.9 Hypothyroidism, unspecified; R19.7 Diarrhea, unspecified; I48.91 Unspecified atrial fibrillation; K58.0 Irritable bowel syndrome with diarrhea

== ENCOUNTER 2019-06-24 15:48 | Inpatient (IN) | payer MEDICARE, MEDICAID ==
[~2019-06-24] VITALS: Ht 162.6 cm; Wt 124.5 kg
[~2019-06-24 15:48] MED LIST changes: -ACET-897 PO; -EUCECRE8 TOP; -FERR1TAB8 PO; -MILKSUS3 PO; -SILV50CR TOP; -TORS20TA2 PO; +ZETI10TA16 PO; -ZETI10TA30 PO; -ZOFR4TAB16 PO
[2019-06-24] MEDS ORDERED: TORS20TA2 PO (16:41)
[2019-06-24] MEDS ORDERED: FERR1TAB8 PO (16:41)
[2019-06-24] MEDS ORDERED: MILKSUS3 PO (16:41)
[2019-06-24] MEDS ORDERED: EUCECRE8 TOP (16:41)
[2019-06-24] MEDS ORDERED: ZOFR4TAB16 PO (16:41)
[2019-06-24] MEDS ORDERED: ACET-897 PO (16:41)
[2019-06-24] MEDS ORDERED: SILV50CR TOP (16:41)
[2019-06-24] MEDS: FLUTICASONE PROP 0.05% NASAL SPRAY 16 GM (FLONASE) SCH (18:00)
[2019-06-24] MEDS ORDERED: HumuLIN R (REGULAR) INSULIN (NovoLIN R) **100U/ML** PER UNIT IV STA (18:21)
[2019-06-24] MEDS ORDERED: DEXTROSE 50% 50 ML SYRINGE IV STA (18:21)
[2019-06-24] MEDS ORDERED: SOD POLYSTYRENE SULFONATE SUSP 15 GM/60 ML UD PO ONE ×2 (18:30→21:45)
--- NOTE | 2019-06-24 18:37 | REP ---
Clinical: Chest pain. Fat. Comparison: 06/04/2019. Findings: Severely limited by portable technique and positioning. Stable cardiomegaly. No focal consolidation or obvious effusion. Interstitial edema cannot definitively be excluded. No pneumothorax. Impression: Limited examination with stable cardiomegaly. Interstitial edema cannot be excluded. Electronically Signed by Felipe Diop MD 06/24/2019 06:28 P
[2019-06-24] MEDS ORDERED: CALCIUM CHLORIDE 10% 1 GM in D5W 100 ML IV ONE (19:00)
[2019-06-24] MEDS ORDERED: NS 1,000 ML IV ONE (19:30)
--- NOTE | 2019-06-24 20:20 | HPEPDOC ---
[facility] Medical History & Physical Date of Admission Jun 24, 2019 Date of Service: Jun 24, 2019 Attending Physician: SALLIE YORK MD History and Physical CHIEF COMPLAINT: Sent from senior living HISTORY OF PRESENT ILLNESS: Ms. Painter is a 74 old female who, per discussion with the ED attending, was sent from her senior living to prepare for dialysis. The patient reports feeling a bit more sleepy than usual, admits to having itchy skin, and occasionally has nausea. According to the patient's family then noticed that she has been more confused lately. The patient denies having dyspnea, and is not sure if she has gained weight. She is full code and reports that she would like to have dialysis. REVIEW OF SYSTEMS: 12 point review of systems negative except as listed in HPI. PAST MEDICAL/SURGICAL HISTORY: 1. 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 Chronic diastolic heart failure with severe pulmonary hypertension 3. Atrial fibrillation on Xarelto 4. History of GI bleed secondary to colonic polyps. 5. Sick sinus syndrome with pacemaker placement. 6. Insulin-dependent diabetes mellitus. 7. Chronic bilateral lower extremity venous stasis ulcers. 8. Morbid obesity. 9. Severe aortic stenosis. 10. History of gastric ulcer. SOCIAL HISTORY: Does not drink. Does not smoke. Resides in a senior living. FAMILY HISTORY: Diabetes Hypertension CAD ALLERGIES: Please see below. HOME MEDICATIONS: Please see below. PHYSICAL EXAMINATION: Temperature 96.3, pulse 62, respiratory rate 20, blood pressure 115/53, pulse oximetry 99% on room air GENERAL APPEARANCE: Obese, well-developed, not in apparent distress, keeps falling asleep during parts of exam HEENT: Normocephalic, atraumatic, mucous membranes moist and pink CARDIOVASCULAR: The heart rate is irregularly irregular, there are no murmurs, rubs or gallops. Radial pulses are intact. LUNGS: Her breathing rate is steady, she's not using accessory muscles There are crackles at the lung bases, ABDOMEN: The abdomen is obese and distended, bowel sounds are present, it is not tender on palpation MUSCULOSKELETAL: The patient has limited ability and requires assistance of 2 nurses to be turned over and changed EXTREMITIES: Range of motion is intact in both upper extremities NEUROLOGICAL: Cranial nausea 12 grossly intact. Speech is not dysarthric. SKIN: She has a chain peau d'orange changes on the abdomen, and both the upper part of both legs. Both lower legs are wrapped in bandages PSYCHIATRIC: She is sleepy but arousable with vocal stimuli. She is able to understand and answer questions appropriately LABORATORY DATA: WBC 8.7, hemoglobin 7.8, platelets 272 Sodium 137, potassium 5.9, chloride 108, carbon dioxide 18, anion gap 11, BUN 116, creatinine 3.5, GFR 13.5, glucose 208, calcium 8.9, and phosphorus 5. IMAGING: Chest x-ray showed cardiomegaly, interstitial edema could not be excluded MICROBIOLOGY: Please see below. ASSESSMENT: Ms. Painter is a 74 old female with multiple medical problems including end- stage kidney disease, chronic diastolic heart failure, atrial fibrillation, history of GI bleeds, atrial fibrillation, sick sinus syndrome, insulin- dependent diabetes mellitus, morbid obesity, and chronic bilateral venous stasis ulcers will be admitted to determine if she is a candidate for dialysis. PLAN: 1. Acute on Chronic Renal Failure/ESRD with anemia of chronic disease The primary cause of the chronic renal failure, may be diabetic nephropathy / hypertensive nephropathy or hypertensive nephrosclerosis. Cr & BUN have been reviewed and are noted to be above her baseline Her GFR puts her in stage V disease The previous renal US done in 2018 was showed findings consistent with chronic medical renal disease, nonobstructing intrarenal calculi The patient's family expressed concerns that that if the patient starts dialysis it'll further reduce the quality of her life. Plan: Admit to medical floor / telemetry / monitor I's and O's, daily weights/renal diet with restricted fluids/ nephrology consult,/ f/u renal US, Phosphorous, 1-25 Vitamin D if available, 25 Vitamin D, Hepatitis Panel, PTH, Calcium, Iron Panel w Ferritin, Ulytes for FEUrea, UPro:Cr ratio, protein immunoelectrophoresis /hold nephrotoxic drugs/ c/w iron supplement 2. Hyperkalemia. Secondary to renal failure. Plan: Calcium gluconate, 15 g of Kayexalate, follow-up BMP in the morning 3 Acute on Chronic diastolic heart failure with severe pulmonary hypertension Plan: Resume home meds except for torsemide, instead we will give 40 mg IV daily 4. Atrial fibrillation Rate controlled. Plan: resume digoxin, check digoxin level, hold Xarelto in anticipation of cath placement for dialysis 5. Insulin-dependent diabetes mellitus. Plan: Detemir 70 units subcutaneously twice per day with lispro 16 units in the morning and 22 units twice a day/follow-up, Accu-Cheks and A1c 6. Chronic bilateral lower extremity ulcers. Plan wound care 7. Morbid obesity. BMI greater than 44.7 Disposition pending clinical course. DVT prophylaxis - will resume apixaban after cath placement Vital Signs Vital Signs Date Time Temp Pulse Resp B/P (MAP) Pulse Ox O2 Delivery O2 Flow Rate FiO2 06/24/19 19:18 62 20 99 06/24/19 19:16 115/53 (73) 06/24/19 16:12 96.3 Room Air Home Medications Scheduled Acetaminophen (Tylenol Extra Strength) 500 Mg Tablet, 1,000 MG PO Q8H Bisoprolol Fumarate (Bisoprolol Fumarate) 5 Mg Tab, 5 MG PO BID Dicyclomine HCl (Dicyclomine HCl) 10 Mg Cap, 10 MG PO BID Digoxin (Digoxin) 125 Mcg Tab, 125 MCG PO 3XW MON, WED, FRI Ferrous Sulfate (Ferrous Sulfate) 325 Mg Tablet, 325 MG PO DAILY Fluticasone Propionate (Flonase Allergy Relief) 50 Mcg/Act Spr, 1 SPRAY NA QPM Insulin Detemir (Levemir) 1 Units/0.01 Ml Susp, 70 UNITS SC BID Insulin Human Lispro (Humalog) 1 Units/0.01 Ml Inj, 16 UNITS SC QAM IN ADDITION TO SLIDING SCALE Insulin Human Lispro (Humalog) 1 Units/0.01 Ml Inj, 22 UNITS SC BID @1100/1600 IN ADDITION TO SLIDING SCALE Insulin Lispro (Humalog Kwikpen U-100) 100 Unit/Ml Inj, 1 DOSE SC ACHS PER SLIDING SCALE IN ADDITION TO OTHER ORDER Lanolin Alcohol/Mo/W.pet/[place] (Eucerin Creme) 454 Gm Cream..g., 1 DOSE TOP DAILY APPLY TO ENTIRE BODY Magnesium Oxide (Magnesium Oxide) 400 Mg Tab, 800 MG PO BID Pantoprazole Sodium (Pantoprazole Sodium) 40 Mg Tab, 40 MG PO BID Pravastatin Sodium (Pravastatin Sodium) 40 Mg Tab, 40 MG PO DAILY Rivaroxaban (Xarelto) 15 Mg Tab, 15 MG PO QPM WAS ON HOLD FOR 2 DAYS - DUE TO RESTART 06/24/19 Silver Sulfadiazine (Ssd) 50 Gm Cream..g., 1 DOSE TOP DAILY APPLY TO WOUND BEDTHEN COVER WITH TELFA EVERY DAY UNTIL HEALED Torsemide (Torsemide) 20 Mg Tablet, 40 MG PO DAILY Scheduled PRN Bisacodyl (Dulcolax) 10 Mg Sup, 10 MG SC DAILY PRN for CONSTIPATION Glucagon,Human Recombinant (Glucagon Emergency Kit) 1 Mg Kit, 1 MG IM for LOW BLOOD SUGAR Magnesium Hydroxide (Milk of Magnesia) 400 Mg/5 Ml Oral.susp, 30 ML PO DAILY PRN for CONSTIPATION Nitroglycerin (Nitrostat) 0.4 Mg Subl, 0.4 MG SL NITRO PRN for CHEST PAIN Ondansetron HCl (Zofran) 4 Mg Tablet, 4 MG PO Q4H PRN for NAUSEA Sodium Phosphate,[place]-Dibasic (Enema Ready To Use) 1 Melissa Melissa, 1 DOSE SC DAILY PRN for CONSTIPATION Allergies Coded Allergies: cephalexin (Verified Adverse Reaction, Mild, HEADACHE, 06/06/19) A-FIB/CHADSVASC A-FIB History Current/History of A-Fib/PAF?: Yes Current PO Anticoag Therapy: Yes SALLIE YORK MD Jun 24, 2019 20:20
--- NOTE | 2019-06-24 20:31 | ECGEPIP ---
[facility] - ED Test Date: 2019-06-24 Pat Name: EDDIE WIGGINS Department: Room: - Gender: Female Destination Specialist: : 1945 Requested By: Eliseo Hernandez Order Number: [id number] Reading MD: Eliseo Singh Measurements Intervals [place] Rate: 75 P: [place]: 0 QRS: 164 QRSD: 166 T: -12 QT: 398 QTc: 444 Interpretive Statements ATRIAL FIBRILLATION RIGHT AXIS DEVIATION RIGHT BUNDLE BRANCH BLOCK POSSIBLE ANTERIOR MYOCARDIAL INFARCTION, OF INDETERMINATE AGE SIMILAR TO 07/24/18 Electronically Signed on 06-24-2019 20:31:01 EDT by Eliseo Singh
[2019-06-24] MEDS: DICYCLOMINE 10 MG CAP PO SCH (21:00)
[2019-06-24] MEDS: BISOPROLOL FUMARATE 5 MG TAB PO SCH (21:00)
[2019-06-24] MEDS: HumaLOG INSULIN (NovoLOG) PER UNIT SC SCH (21:00)
[2019-06-24] MEDS: LEVEMIR (INSULIN DETEMIR) 1 UNITS/0.01ML SC SCH (21:00)
[2019-06-24] MEDS: PANTOPRAZOLE 40MG TAB (PROTONIX) PO SCH (21:00)
[2019-06-24] MEDS ORDERED: APIXABAN 2.5 MG TAB (ELIQUIS) PO SCH (21:00)
[2019-06-24] MEDS ORDERED: DIGOXIN 0.125 MG TAB PO STA (21:19)
[2019-06-24] MEDS ORDERED: BISACODYL 10 MG SUPP PR PRN (21:30)
[2019-06-24] MEDS ORDERED: ONDANSETRON 4 MG TAB (S0181) PO PRN (21:30)
[2019-06-24] MEDS ORDERED: GLUCAGON FOR INJ 1 MG VIAL (J1610) IM PRN (21:30)
[2019-06-24] MEDS ORDERED: NITROGLYCERIN 0.4 MG SUBL TABLET SL PRN (21:30)
[2019-06-24] MEDS: ACETAMINOPHEN 500 MG TAB PO SCH ×2 (22:00→23:46)
[2019-06-25] MEDS: ACETAMINOPHEN 500 MG TAB PO SCH ×2 (00:03→21:42)
[2019-06-25 06:58] LABS: HEMATOCRIT 30.6 % (36.0-47.0); HEMOGLOBIN 7.8 g/dl (12.0-15.5); MEAN CORPUSCULAR HEMOGLOBIN 24.9 pg (27.0-33.0); MEAN CORPUSCULAR HGB CONC 25.5 g/dl (32.0-36.5); MEAN CORPUSCULAR VOLUME 97.8 fl (80.0-96.0); PLATELET COUNT, AUTOMATED 241 10^3/uL (150-450); RED BLOOD COUNT 3.13 10^6/uL (4.00-5.40); WHITE BLOOD COUNT 6.5 10^3/uL (4.0-10.0)
[2019-06-25 07:21] LABS: FERRITIN 33 NG/ML (8-252); IRON (FE) 16 UG/DL (50-170); PHOSPHORUS LEVEL 5.3 MG/DL (2.5-4.9); TOTAL IRON BINDING CAPACITY 267 UG/DL (250-450); TOTAL PROTEIN 5.9 GM/DL (6.4-8.2)
[2019-06-25] MEDS ORDERED: HumaLOG INSULIN (NovoLOG) PER UNIT SC SCH (07:30)
[2019-06-25 07:33] LABS: BLOOD UREA NITROGEN 113 MG/DL (7-18); CALCIUM LEVEL 9.2 MG/DL (8.8-10.2); CARBON DIOXIDE LEVEL 19 MEQ/L (21-32); CHLORIDE LEVEL 109 MEQ/L (98-107); CREATININE FOR GFR 3.64 MG/DL (0.55-1.30); DIGOXIN LEVEL 1.7 NG/ML (0.5-2.0); GLOMERULAR FILTRATION RATE 12.9 (>39); GLUCOSE, FASTING 301 MG/DL (70-100); POTASSIUM SERUM 4.9 MEQ/L (3.5-5.1); SODIUM LEVEL 138 MEQ/L (136-145)
[2019-06-25] MEDS: HumaLOG INSULIN (NovoLOG) PER UNIT SC SCH ×7 (08:55→21:00)
[2019-06-25] MEDS: DICYCLOMINE 10 MG CAP PO SCH ×2 (09:10→21:42)
[2019-06-25] MEDS: LEVEMIR (INSULIN DETEMIR) 1 UNITS/0.01ML SC SCH ×2 (09:10→21:41)
[2019-06-25] MEDS: PANTOPRAZOLE 40MG TAB (PROTONIX) PO SCH ×2 (09:10→21:41)
[2019-06-25] MEDS: FERROUS SULFATE 325MG TAB PO SCH (09:10)
[2019-06-25] MEDS: BISOPROLOL FUMARATE 5 MG TAB PO SCH ×2 (09:20→21:41)
[2019-06-25 09:40] LABS: PTH INTACT 81.5 PG/ML (18.5-88.0)
[2019-06-25] MEDS ORDERED: HEPARIN 1,000 UNITS/ML 10ML VIAL (FOR RADIOLOGY& DIALYSIS ONLY) IV ONE (11:00)
[2019-06-25] MEDS ORDERED: HEPARIN 1,000 UNITS/ML 10ML VIAL (FOR RADIOLOGY& DIALYSIS ONLY) XX ONE (11:00)
[2019-06-25 12:23] VITALS: BP 133/62
[2019-06-25 12:53] LABS: ALBUMIN % 52.3 % (55.8-66.1); ALPHA-1-GLOBULIN % 8.7 % (2.9-4.9); ALPHA-2-GLOBULINS % 9.4 % (7.1-11.8); BETA-1-GLOBULINS % 5.8 % (4.7-7.2); BETA-2-GLOBULINS % 5.8 % (3.2-6.5)
[2019-06-25 12:54] LABS: ALBUMIN 3.09 GM/DL (3.29-5.55); ALPHA-1-GLOBULINS 0.51 GM/DL (0.17-0.41); ALPHA-2-GLOBULINS 0.55 GM/DL (0.42-0.99); BETA-1-GLOBULINS 0.34 GM/DL (0.28-0.60); BETA-2-GLOBULINS 0.34 GM/DL (0.19-0.55); GAMMA GLOBULINS 1.06 GM/DL (0.65-1.58)
--- NOTE | 2019-06-25 14:41 | CR ---
DATE OF CONSULTATION: 06/25/2019 NEPHROLOGY CONSULTATION FOR: Diane Mayfield MD NOTE: Consult was requested by the emergency room physician yesterday and patient is seen this morning in the emergency room. REASON FOR CONSULTATION: Advanced renal failure and decompensated congestive heart failure. HISTORY OF PRESENT ILLNESS: Mrs. Painter is a 74-year-old, morbidly obese female who is currently a halfway resident and was sent to emergency room yesterday. 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 The patient tells me that several years ago she had kidney stones and was seen by urologist. Over period of time, she seems to have decline in kidney function and has worsening hypervolemia. She has developed wounds on her both legs in addition to skin excoriations on her upper extremities. She was felt to have end-stage renal disease and her primary physician sent her to emergency room from halfway yesterday with plan for starting dialysis. PAST MEDICAL AND SURGICAL HISTORY (significant for): 1. Longstanding history of type 2 diabetes. 2. Chronic kidney disease stage IV to stage V. 3. Chronic diastolic congestive heart failure with severe pulmonary hypertension. 4. Atrial fibrillation. 5. History of gastrointestinal (GI) bleed with colon polyps. 6. History of sick sinus syndrome, status post pacemaker placement. 7. History of bilateral lower extremity venous stasis ulcers. 8. Morbid obesity. 9. History of severe aortic stenosis. 10. History of gastric ulcer. PERSONAL AND SOCIAL HISTORY: Patient is currently a resident of halfway. She does not drink or smoke. Family history is significant for diabetes, hypertension and coronary artery disease. MEDICATION: residential medications include: - Tylenol as needed - bisoprolol 5 mg twice a day - dicyclomine 10 mg twice a day - digoxin 125 mcg three times a week - ferrous sulfate 325 mg daily - Flonase 50 mcg daily - insulin Levemir 70 units twice a day - Humalog per sliding scale - magnesium oxide 800 mg twice a day - Protonix 40 mg twice a day - pravastatin 40 mg daily - Xarelto 15 mg daily - torsemide 40 mg daily ALLERGIES: Patient has allergy to KEFLEX. REVIEW OF SYSTEMS: She denies any fever or chills. She has been short of breath and increased lower extremity edema over last few weeks. She has been nauseated but denies any vomiting. Ears, nose and throat are unremarkable. Cardiovascular system is significant for chronic diastolic congestive heart failure and chronic atrial fibrillation. Her volume status has been decompensated. Respiratory system is negative for hemoptysis or pleuritic type of chest pain. Gastrointestinal (GI) system significant for nausea but denies any abdominal pain or vomiting. Genitourinary () system is significant for history of bilateral kidney stones. She denies any dysuria or gross hematuria. Musculoskeletal system is significant for morbid obesity, bilateral lower extremity ulcers and stasis with edema. Endocrine system significant for type 2 diabetes. Hematological system is significant for severe anemia with prior history of GI bleed. Psychosocial system is negative for depression or anxiety. Neurological system negative for seizures or stroke. PHYSICAL EXAM: Elderly lady who is morbidly obese and laying in the bed in emergency room. Temperature is 98 degrees Fahrenheit, heart rate 96 per minute and respiratory rate 20 per minute. Blood pressure 116/82 mmHg and oxygen saturation 100%. Her head is atraumatic. There is no oral thrush or ulcers. Pupils equal and reactive to light and sclera is anicteric. Neck is supple and jugular venous distention (JVD) is moderately elevated. Heart sounds are irregular in rhythm and without a pericardial friction rub. She also has a systolic murmur grade 2/6 on the aortic area. Lungs have diminished breath sounds with morbid obesity. Abdomen is an obese with large pannus and bowel sounds are present. She has multiple old surgical scars, which are well-healed. Extremities have no cyanosis or clubbing. She has wounds on both legs, which are covered with dressings. Skin has multiple small ulcers on her upper extremities and large areas of skin necrosis on lower extremities, which are covered with dressings. Neurologically she is awake, alert and without a focal deficit. LAB DATA: WBC count 6.5, hemoglobin 7.8 and hematocrit 30.6. Platelets 241. Sodium 138, potassium 4.9, CO2 19, BUN 113 and creatinine 3.64. Glucose 301 and calcium 9.2. Iron level is 16 and saturation only 6%. Digoxin level 1.7. Chest x-ray done in the emergency room showed some interstitial edema and cardiomegaly. I have reviewed her prior imaging studies and she did have bilateral kidney stones with atrophic kidneys. There was no hydronephrosis on her most recent CAT scan of abdomen and pelvis. PROBLEMS: 1. Advanced renal failure mostly chronic as she has no history of stage IV of chronic kidney disease. Unfortunately, she has not been seen by nephrology so far, and her creatinine has been gradually increasing. On review of her recent labs, I have noticed that in January of this year her creatinine was about 2 with GFR about 25 mL/min. Now her kidney function has worsened. She probably has diabetic nephropathy as her prior urinalysis did show some protein but no significant proteinuria. Other possibility could be chronic pyelonephritis with kidney stones. At this point, she seems to have end-stage renal disease and has failed medical therapy for her hypervolemia and congestive heart failure. We will ask radiology or interventional radiology to place a Perma-Cath and will try to dialyze her either afternoon today or tomorrow. 2. Diastolic congestive heart failure. She has decompensated volume status with significant peripheral edema and pulmonary vascular congestion. We will try to remove at least 2 liters of fluid with each dialysis and gradually correct her volume status. 3. Anemia. She has significant anemia with iron deficiency. She does have history of GI bleed with polyps. We will give her intravenous iron with dialysis and see how she does. At this point, there is no emergent need for transfusion. 4. Metabolic acidosis. She has mild metabolic acidosis, which will correct with dialysis and will not need any other intervention. 5. Bilateral lower extremity ulcers. Patient has chronic stasis with bilateral lower extremity ulcers. I would recommend to get wound care and surgical evaluation for possible debridement. Thank you for involving me in the care of Mrs. Painter. I will follow her along with you.
[2019-06-25] MEDS ORDERED: IRON SUCROSE 25 MG in NS 50 ML IV ONE (15:00)
[2019-06-25] MEDS ORDERED: IRON SUCROSE 75 MG in NS 100 ML IV ONE (15:00)
--- NOTE | 2019-06-25 16:55 | REP ---
Clinical: Acute renal insufficiency. Technique: Real time sidhu scale ultrasound evaluation using curved array transducer. Findings: The right kidney is not visualized. The left kidney is normal in reniform shape and echogenicity measuring 12.6 x 3.8 x 5.4 cm moderate hydronephrosis and 12 mm mid pole renal calculus suggested. Impression: 1. Right kidney not visualized. Left kidney demonstrates mild/moderate hydronephrosis and suspected 12 mm lower pole nonobstructing calculus. Electronically Signed by Felipe Diop MD 06/25/2019 04:46 P
--- NOTE | 2019-06-25 17:22 | IPNPDOC ---
Subjective Date Seen The patient was seen on 06/25/19. Time of service 12:05 PM Subjective Chief Complaint/HPI Sent for dialysis by PCP Events since last encounter Per discussion with nursing staff. There were no acute overnight events. The patient will go for cath placement today. The patient denies having any acute complaints and keeps falling asleep during the history and exam Objective Physical Examination Other physical findings PHYSICAL EXAMINATION: VITAL SIGNS: See below GENERAL APPEARANCE: Obese, well-developed, not in apparent distress, keeps falling asleep during parts of exam HEENT: Normocephalic, atraumatic, mucous membranes moist and pink CARDIOVASCULAR: The heart rate is irregularly irregular, there are no murmurs, rubs or gallops. Radial pulses are intact. LUNGS: Her breathing rate is steady, she's not using accessory muscles There are crackles at the lung bases, ABDOMEN: The abdomen is obese and distended, bowel sounds are present, it is not tender on palpation NEUROLOGICAL: Cranial nerves II-12 are grossly intact. Speech is not dysarthric. SKIN: She has a chain peau d'orange changes on the abdomen, and both the upper part of both legs. Both lower legs are wrapped in bandages PSYCHIATRIC: She is sleepy but arousable with vocal stimuli. She is able to understand and answer questions appropriately Assessment /Plan Assessment Ms. Painter is a 74 old female with multiple medical problems including end- stage kidney disease, chronic diastolic heart failure, atrial fibrillation, history of GI bleeds, atrial fibrillation, sick sinus syndrome, insulin- dependent diabetes mellitus, morbid obesity, and chronic bilateral venous stasis ulcers will be admitted to determine if she is a candidate for dialysis. PLAN: 1. CKD 5/ESRD Possibly secondary to diabetic nephropathy / hypertensive nephropathy or h ypertensive nephrosclerosis /nephrolithiasis The PTH, calcium, 25 vitamin D level and immunotherapy electrophoresis were unremarkable. Hyperkalemia has resolved Plan: Continue with telemetry / monitor I's and O's, daily weights/renal diet with restricted fluids/ nephrology consult,/ f/u renal US, 1-25 Vitamin D if available, Hepatitis Panel, Ulytes for FEUrea, UPro:Cr ratio, /hold nephrotoxic drugs/ dialysis per nephrology 2. Iron deficiency anemia. Iron panel reviewed Plan: Start Venofer 3 Acute on Chronic diastolic heart failure with severe pulmonary hypertension Plan: Continue with home meds except for torsemide, instead we will give 40 mg IV daily 4. Atrial fibrillation Rate controlled. Digoxin level is within normal limits Plan: Continue with digoxin lash resume Paxipam tomorrow 5. Insulin-dependent diabetes mellitus. Plan: Detemir 70 units subcutaneously twice per day with lispro 16 units in the morning and 22 units twice a day/follow-up, Accu-Cheks and A1c 6. Chronic bilateral lower extremity ulcers. Plan wound care and per nephro general surgery consult 7. Morbid obesity. BMI greater than 44.7 Disposition pending clinical course. DVT prophylaxis - will resume apixaban after cath placement Plan/VTE VTE Prophylaxis Ordered?: Yes (see progress note) VS, I&O, 24H, Fishbone Vital Signs/I&O Vital Signs Date Time Temp Pulse Resp B/P (MAP) Pulse Ox O2 Delivery O2 Flow Rate FiO2 06/25/19 12:23 96.6 64 20 133/62 (85) 96 06/25/19 09:00 Room Air Laboratory Data 24H LABS Laboratory Tests 2 06/24/19 23:03: Bedside Glucose (Misc Panel) 285H 06/25/19 06:40: Nucleated Red Blood Cells % (auto) 0.3H, Anion Gap 10, Glomerular Filtration Rate 12.9L, Blood Urea Nitrogen 113H, Creatinine 3.64H, Sodium Level 138, Potassium Level 4.9, Chloride Level 109H, Carbon Dioxide Level 19L, Calcium L evel 9.2, Phosphorus Level 5.3H, Iron Level 16L, Total Iron Binding Capacity 267, Transferrin % Saturation 6.0L, Ferritin 33, Total Protein (PEP) 5.9L, Albumin (%) 52.3L, Bwgks-6-Dyqysnaag (%) 8.7H, Xugvs-0-Djjqhjccr (%) 9.4, Gamma Globulins (%) 18.0, Kehlu-7-Bxdrgmgir 0.51H, Bnmyx-0-Mwbgjvfzw 0.55, Gamma Globulins 1.06, Protein Electrophoresis Interpret SEE COMMENT, Albumin (PEP) 3.09L, Dewg-4-Ihuurony 0.34, Owgp-3-Mepjefsv (%) 5.8, Tgvo-1-Rsrnlegq 0.34, Bagw-3-Ohxmrcrz (%) 5.8, 25-Hydroxy Vitamin D Total 32.0, Parathyroid Hormone (Intact) 81.5, Digoxin Level 1.7 06/25/19 10:08: 06/25/19 12:13: Bedside Glucose (Misc Panel) 243H CBC/BMP Laboratory Tests 06/25/19 06:40 Red Blood Count 3.13 L, Mean Corpuscular Volume 97.8 H, Mean Corpuscular Hemoglobin 24.9 L, Mean Corpuscular Hemoglobin Concent 25.5 L, Red Cell Distribution Width 29.3 H, Calcium Level 9.2 SALLIE YORK MD Jun 25, 2019 17:22
--- NOTE | 2019-06-25 18:21 | POST-OPPD ---
Postoperative Procedure Note Date Of Procedure: Jun 25, 2019 Time Of Procedure: 17:19 PREOPERATIVE DIAGNOSIS: RF POSTOPERATIVE DIAGNOSIS: RF FINDINGS: patent right IJ PROCEDURE: right IJ temporary vas cath for dialysis. Once patient is stable will convert to permanent tunnelled dialysis catheter for discharge. SURGEON: Amira ANESTHESIA: none. ESTIMATED BLOOD LOSS: < 5 ml COMPLICATIONS: none POSTOPERATIVE CONDITION: stable GITA HILL MD Jun 25, 2019 18:21
[2019-06-25 18:24] VITALS: BP 121/56
[2019-06-25 18:30] LABS: HEMOGLOBIN A1c 5.2 %
[2019-06-25 19:22] LABS: APPEARANCE, URINE CLOUDY (CLEAR); BACTERIA, URINE AUTO 3+ (NEGATIVE); BILIRUBIN, URINE AUTO NEGATIVE (NEGATIVE); BLOOD, URINE BLOOD 1+ (NEGATIVE); COLOR, URINE YELLOW (YELLOW); GLUCOSE, URINE (UA) AUTO NEGATIVE (NEGATIVE); KETONE, URINE AUTO NEGATIVE (NEGATIVE); LEUKOCYTE ESTERASE, URINE AUTO 3+ (NEGATIVE); NITRITE, URINE AUTO NEGATIVE (NEGATIVE); PROTEIN, URINE AUTO NEGATIVE (NEGATIVE); RBC, URINE AUTO 7 /HPF (0-3); SQUAMOUS EPITHELIAL CELL UR AU 2 /HPF (0-6); UROBILINOGEN, URINE AUTO 0.2 mg/dL (0.0-2.0); WBC, URINE AUTO TNTC /HPF (0-3)
[2019-06-25 20:00] VITALS: BP 132/59
[2019-06-25] MEDS: FLUTICASONE PROP 0.05% NASAL SPRAY 16 GM (FLONASE) SCH (21:40)
[2019-06-25 21:45] VITALS: BP 135/63
[2019-06-25 22:00] VITALS: BP 124/58
[2019-06-25 23:20] VITALS: BP 121/58
[2019-06-26 00:20] VITALS: BP 115/57
[2019-06-26 04:00] VITALS: BP 124/56
[2019-06-26] MEDS: ACETAMINOPHEN 500 MG TAB PO SCH ×3 (05:45→21:17)
[2019-06-26 06:25] LABS: BASO # 0.1 10^3/uL (0.0-0.2); EOS # 0.1 10^3/uL (0.0-0.50); EOS % 0.9 % (0.0-3.0); HEMATOCRIT 30.7 % (36.0-47.0); HEMOGLOBIN 7.7 g/dl (12.0-15.5); LYMPH # 0.4 10^3/uL (1.5-4.5); LYMPH % 6.7 % (24.0-44.0); MEAN CORPUSCULAR HEMOGLOBIN 23.9 pg (27.0-33.0); MEAN CORPUSCULAR HGB CONC 25.1 g/dl (32.0-36.5); MEAN CORPUSCULAR VOLUME 95.3 fl (80.0-96.0); MONO # 0.6 10^3/uL (0.0-0.8); MONO % 10.7 % (0.0-5.0); NEUTROPHILS # 4.7 10^3/uL (1.8-7.7); NEUTROPHILS % 80.4 % (36.0-66.0); PLATELET COUNT, AUTOMATED 228 10^3/uL (150-450); RED BLOOD COUNT 3.22 10^6/uL (4.00-5.40); WHITE BLOOD COUNT 5.8 10^3/uL (4.0-10.0)
[2019-06-26 06:44] LABS: CALCIUM LEVEL 9.4 MG/DL (8.8-10.2); CREATININE FOR GFR 3.22 MG/DL (0.55-1.30); GLOMERULAR FILTRATION RATE 14.9 (>39)
[2019-06-26 08:00] VITALS: BP 125/59
[2019-06-26] MEDS ORDERED: IRON SUCROSE 100MG 5ML VIAL (J1756 PER 1MG) IV SCH ×2 (08:15→09:00)
[2019-06-26] MEDS: HumaLOG INSULIN (NovoLOG) PER UNIT SC SCH ×7 (08:29→20:15)
[2019-06-26] MEDS: LEVEMIR (INSULIN DETEMIR) 1 UNITS/0.01ML SC SCH (08:30)
--- NOTE | 2019-06-26 08:45 | REP ---
IR Vas cath placement. Vas cath placement using fluoroscopy and ultrasound guidance. Ultrasound of the right neck. Clinical information: Renal failure. Altered mental status. Requires dialysis. Physician: Dr. Collier. Procedure: The patient was advised of the benefits, risks and alternatives of the procedure and informed consent was obtained. The time-out was performed with verification of the patient's name, MRN, site of procedure and type of procedure to be performed. The patient was positioned in the supine position on the angiographic table. The site was prepped and draped in the usual sterile fashion. Moderate sedation was not appropriate as the patient was hypotensive. The physician spent 45 minutes of continuous face to face time with the patient. A family counselor radiograph reveals a cardiac device in place. Cardiomegaly. Preliminary ultrasound of the right neck demonstrates hypoechoic nodules in the thyroid. Patent right internal jugular vein. Local anesthesia using lidocaine was administered. A small incision was made above the clavicle. Using ultrasound guidance the right internal jugular vein was accessed using a lateral approach with a micro introduce needle. An 018 wire was advanced into the superior vena cava. The needle was removed and a micro introducer sheath was placed. An Amplatz wire was then passed into the inferior vena cava. The tract was dilated. A 19 cm Schon, double-lumen temporary dialysis catheter was inserted over the wire under fluoroscopy guidance. The catheter tip was positioned at the atrium and the wire was removed. All lumens flush and aspirate freely. The catheter was sutured to the skin with 2-0 Prolene. A sterile dressing was then applied. The patient tolerated the procedure well and was returned to the PRU in stable condition. EBL: < 5 ml. Complications: None. Conclusion: 1. Successful placement of a double-lumen 19 cm temporary Schon dialysis catheter via the right internal jugular vein. The catheter is ready for immediate use. 2. Once the patient is stable and better able to tolerate the procedure, the catheter will be converted to a Perma-Cath prior to discharge. Thank you this referral. Electronically Signed by Elly Collier MD 06/26/2019 08:44 A
[2019-06-26 11:04] LABS: HEPATITIS B SURFACE ANTIBODY NEGATIVE (POSITIVE)
[2019-06-26 11:10] LABS: HEPATITIS B SURFACE ANTIGEN NEGATIVE (NEGATIVE)
[2019-06-26 11:38] LABS: HEPATITIS C VIRUS ABY INDEX 0.1 INDEX (<0.8)
[2019-06-26 11:39] LABS: HEPATITIS B CORE ANTIBODY IGM NEGATIVE (NEGATIVE)
[2019-06-26 12:10] VITALS: BP 118/56
--- NOTE | 2019-06-26 12:28 | IPN ---
DATE OF VISIT: 06/26/2019 Mrs. Painter is seen during hemodialysis this morning. She underwent a right internal jugular vein temporary hemodialysis catheter placement yesterday by interventional radiology. She is being dialyzed this morning. She has a complaint of severe back pain and feels uncomfortable. We are trying to remove 2 liters of fluid due to volume overload. Patient has no fever or chills. Her dyspnea is improving. She denies any nausea or vomiting. Her main complaint at present is just back pain. On physical exam, temperature 97 degrees Fahrenheit, heart rate 70 per minute and respiratory rate 20 per minute. Blood pressure 125/60 mmHg and oxygen saturation 96%. Head is atraumatic. Right internal jugular vein temporary dialysis catheter is present. She has no oral thrush or ulcers. Heart sounds are regular and lungs with diminished breath sounds. Abdomen obese, soft and nontender, and bowel sounds are normal. Extremities without any cyanosis or clubbing. She has multiple small ulcers and excoriations on her arms. She has bilateral lower leg ulcers, which are covered with dressing. Neurologically, she is awake and at her baseline mentation. Today's labs show WBC count 5.8, hemoglobin 7.7 and hematocrit 30.7. Platelets 238. Sodium 140, potassium 4.0, CO2 20, BUN 110 and creatinine 3.22. Calcium level is 9.4 and glucose 125. She had a serum protein electrophoresis done, which did not show any M-spike. PROBLEMS: 1. Renal failure. Patient has advanced renal failure and volume overload. We started dialysis and she is having her first treatment today. 2. Congestive heart failure. Her volume status is decompensated and we are trying to remove 2 liters of fluid as tolerated. 3. Anemia. She does have severe anemia with iron deficiency. She did receive one dose of Venofer 100 mg yesterday and we will give her further Venofer during dialysis. 4. Hypertension. Blood pressure is very well controlled. It is likely that she will have low blood pressures, so we may have to adjust her antihypertensive. At present, she is in fact not receiving any antihypertensive medications.
[2019-06-26] MEDS: BISOPROLOL FUMARATE 5 MG TAB PO SCH ×3 (13:13→20:13)
[2019-06-26] MEDS: PANTOPRAZOLE 40MG TAB (PROTONIX) PO SCH ×2 (13:13→20:15)
[2019-06-26] MEDS: FERROUS SULFATE 325MG TAB PO SCH (13:13)
[2019-06-26] MEDS: DICYCLOMINE 10 MG CAP PO SCH ×2 (13:13→20:13)
[2019-06-26] MEDS ORDERED: IRON SUCROSE 100 MG in NS 100 ML OVER 1 HR IV SCH (15:00)
[2019-06-26 16:00] VITALS: BP 119/53
--- NOTE | 2019-06-26 17:42 | IPNPDOC ---
Subjective Date Seen The patient was seen on 06/26/19. Time of service 3 PM Subjective Chief Complaint/HPI start dialysis Events since last encounter The patient is sleepy but when aroused. Denies having any pain or any acute complaints. Per discussion with nursing staff. The patient had a Port-A-Cath placed today and will start dialysis tomorrow. Assessment /Plan Assessment PHYSICAL EXAMINATION: VITAL SIGNS: See below GENERAL APPEARANCE: Obese, well-developed, not in apparent distress, keeps falling asleep during parts of exam CARDIOVASCULAR: The heart rate is irregularly irregular, there are no murmurs, rubs or gallops. Radial pulses are intact. LUNGS: Her breathing rate is steady, she's not using accessory muscles There are crackles ABDOMEN: The abdomen is obese and distended, bowel sounds are present, it is not tender on palpation NEUROLOGICAL: Difficult to assess because the patient is asleep. SKIN: She has a chain peau d'orange changes on the abdomen, and both the upper part of both legs. Both lower legs are wrapped in bandages PSYCHIATRIC: She is sleepy but arousable with vocal stimuli. She is able to understand and answer questions appropriately Ms. Painter is a 74 old female with multiple medical problems including end- stage kidney disease, chronic diastolic heart failure, atrial fibrillation, history of GI bleeds, atrial fibrillation, sick sinus syndrome, insulin- dependent diabetes mellitus, morbid obesity, and chronic bilateral venous stasis ulcers will be admitted to start dialysis. PLAN: 1. CKD 5/ESRD Possibly secondary to diabetic nephropathy / hypertensive nephropathy or hypertensive nephrosclerosis /nephrolithiasis The PTH, calcium, 25 vitamin D level, hepatitis panel and immunoelectrophoresis were unremarkable. Hyperkalemia has resolved Renal ultrasound showed "Right kidney not visualized. Left kidney demonstrates mild/moderate hydronephrosis and suspected 12 mm lower pole nonobstructing calculus" Plan: Continue with telemetry / monitor I's and O's, daily weights/renal diet with restricted fluids/ Ulytes for FEUrea, UPro:Cr ratio, /hold nephrotoxic drugs/ Nephrology on board / will start dialysis tomorow 2. Iron deficiency anemia. Iron panel reviewed Plan: Venofer day #1/3, continue PO ferrous sulfate 3 Acute on Chronic diastolic heart failure with severe pulmonary hypertension Plan: Continue with home meds except instead of torsemide will give lasix 60 IV daily 4. Atrial fibrillation Rate controlled. Digoxin level is within normal limits Plan: Continue with digoxin hold apixaban 5. Insulin-dependent diabetes mellitus. A1C 5.2 % Plan: decrease Detemir from 70 to 50 units subcutaneously twice per day / decrease lispro from 16 units in the morning and lispro 22 units twice a day to lispro 10 units three times a day w meals /follow-up, Accu-Cheks 6. Chronic bilateral lower extremity ulcers. Plan wound care and per nephro general surgery consult to debride wounds 7. Morbid obesity. BMI greater than 44.7 Disposition pending clinical course. DVT prophylaxis - will resume apixaban after Gen surg evaluates leg wounds Plan/VTE VTE Prophylaxis Ordered?: No (JAIRO HOSE WHILE WAITING FOR PROCEDURE) VS, I&O, 24H, Fishbone Vital Signs/I&O Vital Signs Date Time Temp Pulse Resp B/P (MAP) Pulse Ox O2 Delivery O2 Flow Rate FiO2 06/26/19 16:00 97.0 68 16 119/53 (75) 95 06/25/19 09:00 Room Air I&O- Last 24 Hours up to 6 AM 06/26/19 06:00 Intake Total 1100 ml Output Total 0 ml Balance 1100 ml Laboratory Data 24H LABS Laboratory Tests 2 06/25/19 19:00: Urine Appearance CLOUDYH, Urine Color YELLOW, Urine pH 6.0, Urine Specific [place] 1.010, Urine Protein NEGATIVE, Urine Glucose (UA) NEGATIVE, Urine Ketones NEGATIVE, Urine Urobilinogen 0.2, Urine Bilirubin NEGATIVE, Urine Leukocyte Esterase 3+H, Urine Blood 1+H, Urine Nitrite NEGATIVE, Urine WBC (Auto) TNTCH, Urine RBC (Auto) 7H, Urine Hyaline Casts (Auto) 0, Urine Bacteria (Auto) 3+H, Urine Squamous Epithelial Cells 2, Urine Sperm (Auto) 06/25/19 19:14: Bedside Glucose (Misc Panel) 176H 06/25/19 21:17: Bedside Glucose (Misc Panel) 174H 06/26/19 06:08: Immature Granulocyte % (Auto) 0.3, White Blood Count 5.8, Red Blood Count 3.22L, Hemoglobin 7.7L, Hematocrit 30.7L, Mean Corpuscular Volume 95.3, Mean Corpuscular Hemoglobin 23.9L, Mean Corpuscular Hemoglobin Concent 25.1L, Red Cell Distribution Width 29.2H, Platelet Count 228, Neutrophils (%) (Auto) 80.4H, Lymphocytes (%) (Auto) 6.7L, Monocytes (%) (Auto) 10.7H, Eosinophils (%) (Auto) 0.9, Basophils (%) (Auto) 1.0, Neutrophils # (Auto) 4.7, Lymphocytes # (Auto) 0.4L, Monocytes # (Auto) 0.6, Eosinophils # (Auto) 0.1, Basophils # (Auto) 0.1, Nucleated Red Blood Cells % (auto) 0.9H, Anion Gap 9, Glomerular Filtration Rate 14.9L, Blood Urea Nitrogen 110H, Creatinine 3.22H, Sodium Level 140, Potassium Level 4.0, Chloride Level 111H, Carbon Dioxide Level 20L, Calcium Level 9.4 06/26/19 12:26: Bedside Glucose (Misc Panel) 85 CBC/BMP Laboratory Tests 06/26/19 06:08 Red Blood Count 3.22 L, Mean Corpuscular Volume 95.3, Mean Corpuscular Hemoglobin 23.9 L, Mean Corpuscular Hemoglobin Concent 25.1 L, Red Cell Distribution Width 29.2 H, Neutrophils (%) (Auto) 80.4 H, Lymphocytes (%) (Auto) 6.7 L, Monocytes (%) (Auto) 10.7 H, Eosinophils (%) (Auto) 0.9, Basophils (%) (Auto) 1.0, Neutrophils # (Auto) 4.7, Lymphocytes # (Auto) 0.4 L, Monocytes # (Auto) 0.6, Eosinophils # (Auto) 0.1, Basophils # (Auto) 0.1, Calcium Level 9.4 SALLIE YORK MD Jun 26, 2019 17:42
[2019-06-26] MEDS ORDERED: HumaLOG INSULIN (NovoLOG) PER UNIT SC SCH (18:00)
[2019-06-26] MEDS: FUROSEMIDE 100 MG/10 ML VIAL (J1940) IV SCH (18:01)
[2019-06-26] MEDS: FLUTICASONE PROP 0.05% NASAL SPRAY 16 GM (FLONASE) SCH (18:02)
--- NOTE | 2019-06-26 19:15 | CR ---
DATE OF CONSULTATION: 06/26/2019 REASON FOR CONSULTATION: Lower extremity wounds. HISTORY OF PRESENT ILLNESS: Patient is a 74-year-old female who [facility]. She was admitted to hospitalist service and after admission made noticed that she had some lower extremity wounds. Nurse have been dressing them but I was asked to evaluate for possible debridement. PAST MEDICAL HISTORY: Chronic kidney disease, diastolic heart failure, pulmonary hypertension, A fib, GI bleeding, sick sinus syndrome, diabetes with chronic lower extremity venous stasis ulcers, morbid obesity, severe aortic stenosis, gastric ulcers. SOCIAL HISTORY Denies drug, alcohol, tobacco use. FAMILY HISTORY: Noncontributory. ALLERGIES: Keflex. MEDICATIONS: Please see med rec. REVIEW OF SYSTEMS: Pertinent, positives and negative as stated in the HPI. PHYSICAL EXAMINATION: General alert and oriented times three. No acute stress. Vitals: Temperature 97, pulse 68, respirations 16, blood pressure 119/53, pulse ox 95% room air. HEENT: Pupils equal. Lungs: Clear to auscultation bilaterally. Abdomen: Soft, obese, nontender. Extremities: Bilateral lower extremity pitting edema. There is bilateral lower extremity wounds inferior to the patella circumferential around the shins with erythema and slight venous ulcers measuring in size from 1-4 cm in diameter slight slough tissue in the middle of each no active bleeding. No necrotic tissue. LABORATORY DATA: White count 5.8, hemoglobin 7.7, platelets 228, potassium 4, creatinine 3.22. IMAGING STUDIES: Chest x-ray from 06/24/2019 shows limited exam with stable cardiomegaly, interstitial edema can not be excluded. ASSESSMENT/PLAN: The patient is a 74-year-old female with bilateral lower extremity chronic venous stasis ulcers. No signs of any necrotic tissue that needs any surgical debridement time. I passed to the nurses to replaced the foam dressings for now. There is no need for any iodoform packing. There is no wounds to be packed and I will consult permit specialist to come and give for further recommendations as far as proper dressing in the morning.
[2019-06-26 20:00] VITALS: BP 112/56
[2019-06-26] MEDS: RIVAROXABAN 15 MG TAB (XARELTO) PO SCH (20:15)
[2019-06-26] MEDS ORDERED: LEVEMIR (INSULIN DETEMIR) 1 UNITS/0.01ML SC SCH (21:00)
[2019-06-27] VITALS: BP 110/54
[2019-06-27 04:00] VITALS: BP 125/65
[2019-06-27 05:08] LABS: BASO # 0.1 10^3/uL (0.0-0.2); BASO % 0.7 % (0.0-1.0); EOS % 0.6 % (0.0-3.0); HEMATOCRIT 30.8 % (36.0-47.0); HEMOGLOBIN 7.9 g/dl (12.0-15.5); LYMPH # 0.3 10^3/uL (1.5-4.5); LYMPH % 4.7 % (24.0-44.0); MEAN CORPUSCULAR HEMOGLOBIN 24.8 pg (27.0-33.0); MEAN CORPUSCULAR HGB CONC 25.6 g/dl (32.0-36.5); MEAN CORPUSCULAR VOLUME 96.6 fl (80.0-96.0); MONO # 0.7 10^3/uL (0.0-0.8); MONO % 9.9 % (0.0-5.0); NEUTROPHILS # 5.6 10^3/uL (1.8-7.7); NEUTROPHILS % 83.4 % (36.0-66.0); PLATELET COUNT, AUTOMATED 168 10^3/uL (150-450); RED BLOOD COUNT 3.19 10^6/uL (4.00-5.40); WHITE BLOOD COUNT 6.8 10^3/uL (4.0-10.0)
[2019-06-27 05:47] LABS: CALCIUM LEVEL 9.1 MG/DL (8.8-10.2); CREATININE FOR GFR 2.22 MG/DL (0.55-1.30); GLOMERULAR FILTRATION RATE 22.9 (>39); POTASSIUM SERUM 3.6 MEQ/L (3.5-5.1)
[2019-06-27] MEDS: ACETAMINOPHEN 500 MG TAB PO SCH ×3 (05:57→21:26)
[2019-06-27] MEDS ORDERED: DEXTROSE 50% 50 ML SYRINGE IV PRN (06:00)
[2019-06-27] MEDS ORDERED: GLUCOSE 4 GM CHEW TABLET PO PRN (06:00)
[2019-06-27] MEDS: HumaLOG INSULIN (NovoLOG) PER UNIT SC SCH ×4 (07:30→21:00)
[2019-06-27 08:00] VITALS: BP 105/44
[2019-06-27] MEDS ORDERED: HumaLOG INSULIN (NovoLOG) PER UNIT SC SCH ×2 (08:00→12:00)
[2019-06-27] MEDS: DICYCLOMINE 10 MG CAP PO SCH ×2 (09:00→21:26)
[2019-06-27] MEDS: NYSTATIN 100,000 UNITS/GM TOPICAL PWD 15 GM TOP SCH ×2 (09:00→21:26)
[2019-06-27] MEDS: PANTOPRAZOLE 40MG TAB (PROTONIX) PO SCH ×2 (09:00→21:26)
[2019-06-27] MEDS: BISOPROLOL FUMARATE 5 MG TAB PO SCH ×2 (09:00→21:25)
[2019-06-27] MEDS ORDERED: HEPARIN 1,000 UNITS/ML 10ML VIAL (FOR RADIOLOGY& DIALYSIS ONLY) IV ONE (11:00)
[2019-06-27] MEDS ORDERED: HEPARIN 1,000 UNITS/ML 10ML VIAL (FOR RADIOLOGY& DIALYSIS ONLY) XX ONE (11:00)
--- NOTE | 2019-06-27 12:19 | IPN ---
DATE: 06/27/2019 Mrs. Painter is seen this morning on her bedside. She is being dialyzed again this morning. She had a temporary catheter placed on 06/25/2018 which was used yesterday for dialysis. She was quite restless due to back pain. Today, she is resting much better and tolerating her dialysis treatment. We removed 2 liters of fluid yesterday and are planning to remove another 2 liters today. She had decompensated volume status on admission. On physical examination, temperature 97.7 degrees Fahrenheit, heart rate 74 per minute and respiratory rate 20 per minute. Blood pressure 105/44 mmHg and oxygen saturation 95% on room air. Head is atraumatic. Neck is supple and jugular venous distention (JVD) is difficult to be assessed. She has a right-sided internal jugular vein temporary hemodialysis catheter in place. Heart sounds are regular and lungs with diminished breath sounds bilaterally. Abdomen obese, soft and nontender. Bowel sounds are normal. Extremities have no cyanosis or clubbing. Neurologically, she is at her baseline mentation without a focal deficit. Today's labs show WBC count 6.8, hemoglobin 7.9, hematocrit 30.8, platelets 168. Sodium 141, potassium 3.6, chloride 110, CO2 of 24, BUN 63 and creatinine 2.22. Her glucose was 16 this morning and fingerstick blood sugar was 57 at 6:32 a.m. and again at 7:19 a.m. Her most recent blood sugar is 85 at 8:26 a.m. PROBLEMS: 1. End-stage renal disease. The patient has just started dialysis and she was dialyzed yesterday for the first time. Today, she is dialyzed again and she is tolerating it well. She will need her catheter changed to a Perma-Cath prior to discharge. 2. Congestive heart failure. Her volume status is improving and we are removing 2 more liters of fluid today. She tolerated 2 liters fluid removal yesterday well. 3. Anemia. She has severe iron deficiency and we have already started IV intravenous iron. At this point, there is no emergent need for a transfusion. 4. Hypokalemia. Potassium level is borderline and she will be dialyzed with 4.0 mEq potassium bath today. 5. Generalized weakness and deconditioning. The patient is chronically deconditioned. She will probably benefit from some physical therapy. 6. Hypoglycemia. Most likely related to decreased oral intake and insulin. I would suggest to hold off on any long-acting insulin at present and monitor her blood sugars without any coverage until she improves.
[2019-06-27 13:00] VITALS: BP 110/50
[2019-06-27] MEDS: FUROSEMIDE 100 MG/10 ML VIAL (J1940) IV SCH (13:16)
[2019-06-27] MEDS: FERROUS SULFATE 325MG TAB PO SCH (13:16)
[2019-06-27 17:13] VITALS: BP 99/47
[2019-06-27] MEDS: FLUTICASONE PROP 0.05% NASAL SPRAY 16 GM (FLONASE) SCH (17:45)
[2019-06-27] MEDS: RIVAROXABAN 15 MG TAB (XARELTO) PO SCH (17:45)
--- NOTE | 2019-06-27 19:41 | IPNPDOC ---
Subjective Date Seen The patient was seen on 06/27/19. Subjective Chief Complaint/HPI 74f with dchf, afib, gi bleeds, dm, sick sinus syndrome, venous stasis ulcers, p/w progressively worsening renal function and acute diastolic chf. pt was hypoglycemic this morning despite lowering of her insulin doses yesterday. she complains of pain in her legs and back. her breathing is improved from admission. A full ROS was performed and negative with exception to what is documented above Objective Physical Examination General Exam: Positive: Alert, Mild Distress Eye Exam: Positive: PERRLA, Conjunctiva & lids normal, EOMI; Negative: Sclera icteric ENT Exam: Positive: Atraumatic, Mucous membr. moist/pink, Pharynx Normal Neck Exam: Positive: Supple; Negative: JVD, thyromegaly Chest Exam: Positive: Clear to auscultation, Diminished Heart Exam: Positive: Rate Normal, Regular Rhythm, Normal S1, Normal S2; Negative: Murmurs, Rubs Abdomen Exam: Positive: Normal bowel sounds, Soft; Negative: Tenderness, Hepatospenomegaly Extremity Exam: Positive: Edema; Negative: Clubbing, Cyanosis Skin Exam: Positive: Breakdown Neuro Exam: Positive: Normal Gait, Normal Speech, Cranial Nerves 3-12 NL, Reflexes 2+ Psych Exam: Positive: Mental status NL, Mood NL, Oriented x 3 Assessment /Plan Assessment 74f p/w worsening renal failure and acute chf requiring initiation of HD ESRD pt with temporary catheter for permacath placement monday after 48h without xarelto renal following dispo is to return to [facility] after [facility] placement son reports [facility] may not hold bed past monday Will discuss with nephrology and SW in am may need to have permacath placed as outpatient DM a1c is dangerously low as well as fasting sugars may be related to worsening renal function will hold prandial and long acting insulin for now suspect pt will still require insulin however at drastically lower doses continue diabetic diet Afib continue xarelto (holding after monday for procedure) continue bisoprolol acute diastolic chf resolving volume being managed with hd Plan/VTE VTE Prophylaxis Ordered?: Yes VS, I&O, 24H, Fishbone Vital Signs/I&O Vital Signs Date Time Temp Pulse Resp B/P (MAP) Pulse Ox O2 Delivery O2 Flow Rate FiO2 06/27/19 17:13 97.7 75 22 99/47 (64) 92 06/25/19 09:00 Room Air I&O- Last 24 Hours up to 6 AM 06/27/19 06:00 Intake Total 730 ml Output Total 2000 ml Balance -1270 ml Laboratory Data 24H LABS Laboratory Tests 2 06/26/19 20:10: Bedside Glucose (Misc Panel) 85 06/27/19 04:45: Immature Granulocyte % (Auto) 0.7, White Blood Count 6.8, Red Blood Count 3.19L, Hemoglobin 7.9L, Hematocrit 30.8L, Mean Corpuscular Volume 96.6H, Mean Corpuscular Hemoglobin 24.8L, Mean Corpuscular Hemoglobin Concent 25.6L, Red Cell Distribution Width 28.7H, Platelet Count 168, Neutrophils (%) (Auto) 83.4H, Lymphocytes (%) (Auto) 4.7L, Monocytes (%) (Auto) 9.9H, Eosinophils (%) (Auto) 0.6, Basophils (%) (Auto) 0.7, Neutrophils # (Auto) 5.6, Lymphocytes # (Auto) 0.3L, Monocytes # (Auto) 0.7, Eosinophils # (Auto) 0.0, Basophils # (Auto) 0.1, Nucleated Red Blood Cells % (auto) 1.2H, Anion Gap 7L, Glomerular Filtration Rate 22.9L, Blood Urea Nitrogen 63H, Creatinine 2.22H, Sodium Level 141, Potassium Level 3.6, Chloride Level 110H, Carbon Dioxide Level 24, Calcium Level 9.1 06/27/19 06:32: Bedside Glucose (Misc Panel) 57L 06/27/19 07:19: Bedside Glucose (Misc Panel) 57L 06/27/19 08:26: Bedside Glucose (Misc Panel) 85 06/27/19 12:56: Bedside Glucose (Misc Panel) 89 06/27/19 17:08: Bedside Glucose (Misc Panel) 129H CBC/BMP Laboratory Tests 06/27/19 04:45 Red Blood Count 3.19 L, Mean Corpuscular Volume 96.6 H, Mean Corpuscular Hemoglobin 24.8 L, Mean Corpuscular Hemoglobin Concent 25.6 L, Red Cell Distribution Width 28.7 H, Neutrophils (%) (Auto) 83.4 H, Lymphocytes (%) (Auto) 4.7 L, Monocytes (%) (Auto) 9.9 H, Eosinophils (%) (Auto) 0.6, Basophils (%) (Auto) 0.7, Neutrophils # (Auto) 5.6, Lymphocytes # (Auto) 0.3 L, Monocytes # (Auto) 0.7, Eosinophils # (Auto) 0.0, Basophils # (Auto) 0.1, Calcium Level 9.1 TODD CARSON MD Jun 27, 2019 19:41
[2019-06-27 20:00] VITALS: BP 104/50
[2019-06-27] MEDS ORDERED: LEVEMIR (INSULIN DETEMIR) 1 UNITS/0.01ML SC SCH (21:00)
[2019-06-28] VITALS (7 sets, daily range): BP systolic 78–96; BP diastolic 38–48
[2019-06-28] MEDS ORDERED: NS 250 ML IV ONE (03:45)
[2019-06-28 04:19] LABS: BASO # 0.1 10^3/uL (0.0-0.2); EOS % 0.7 % (0.0-3.0); HEMATOCRIT 27.1 % (36.0-47.0); HEMOGLOBIN 7.1 g/dl (12.0-15.5); LYMPH # 0.5 10^3/uL (1.5-4.5); LYMPH % 8.2 % (24.0-44.0); MEAN CORPUSCULAR HEMOGLOBIN 24.8 pg (27.0-33.0); MEAN CORPUSCULAR HGB CONC 26.2 g/dl (32.0-36.5); MEAN CORPUSCULAR VOLUME 94.8 fl (80.0-96.0); MONO # 0.7 10^3/uL (0.0-0.8); MONO % 12.2 % (0.0-5.0); NEUTROPHILS # 4.4 10^3/uL (1.8-7.7); NEUTROPHILS % 77.2 % (36.0-66.0); PLATELET COUNT, AUTOMATED 140 10^3/uL (150-450); RED BLOOD COUNT 2.86 10^6/uL (4.00-5.40); WHITE BLOOD COUNT 5.8 10^3/uL (4.0-10.0)
[2019-06-28 04:38] LABS: CALCIUM LEVEL 8.6 MG/DL (8.8-10.2); CREATININE FOR GFR 2.42 MG/DL (0.55-1.30); GLOMERULAR FILTRATION RATE 20.7 (>39); POTASSIUM SERUM 4.1 MEQ/L (3.5-5.1)
[2019-06-28] MEDS: ACETAMINOPHEN 500 MG TAB PO SCH ×3 (06:45→22:00)
[2019-06-28] MEDS: HumaLOG INSULIN (NovoLOG) PER UNIT SC SCH ×4 (07:30→20:19)
[2019-06-28] MEDS: NYSTATIN 100,000 UNITS/GM TOPICAL PWD 15 GM TOP SCH ×2 (08:57→20:20)
[2019-06-28] MEDS: FUROSEMIDE 100 MG/10 ML VIAL (J1940) IV SCH (08:58)
[2019-06-28] MEDS: FERROUS SULFATE 325MG TAB PO SCH (08:58)
[2019-06-28] MEDS: DICYCLOMINE 10 MG CAP PO SCH ×2 (08:58→20:10)
[2019-06-28] MEDS: PANTOPRAZOLE 40MG TAB (PROTONIX) PO SCH ×2 (08:58→20:10)
[2019-06-28] MEDS: BISOPROLOL FUMARATE 5 MG TAB PO SCH ×2 (08:58→20:06)
[2019-06-28] MEDS: SENOKOT S TAB PO SCH ×2 (10:14→20:10)
[2019-06-28] MEDS ORDERED: oxyCODONE 5MG TAB PO PRN (14:00)
[2019-06-28] MEDS: GABAPENTIN 100 MG CAP PO SCH (15:01)
[2019-06-28] MEDS: RIVAROXABAN 15 MG TAB (XARELTO) PO SCH (17:03)
[2019-06-28] MEDS: FLUTICASONE PROP 0.05% NASAL SPRAY 16 GM (FLONASE) SCH (17:03)
--- NOTE | 2019-06-28 18:46 | IPN ---
DATE: 06/28/2019 Mrs. Painter is seen this morning on her bedside. She is sitting at the edge of bed. She is not feeling well today and reports feeling weak. Nursing staff reports that her blood pressure has been in the 80s. She denies any dyspnea, chest pain, nausea or vomiting. She had no bowel movement since admission. She has been dialyzed twice and we have removed about 4 liters of fluid. PHYSICAL EXAMINATION: Temperature 98.3 degrees Fahrenheit, heart rate 80 per minute and respiratory rate 18 per minute. Blood pressure 83/38 mmHg and oxygen saturation 92% on room air. Head is atraumatic. Neck is supple and jugular venous distention (JVD) difficult to be assessed sitting upright. She has a temporary hemodialysis catheter in right internal jugular vein. Heart sounds are irregular in rhythm. Lungs with diminished breath sounds. Abdomen obese, soft and nontender and bowel sounds are present. Extremities have no cyanosis or clubbing. Bilateral lower leg wounds are covered with dressings. Neurologically, she is awake, alert and at her baseline mentation. Today's labs show WBC count 5.8, hemoglobin 7.1 and hematocrit 27.1. Sodium 140, potassium 4.1, CO2 26, BUN 41 and creatinine 2.42. Glucose 97 and calcium 8.6. PROBLEMS: 1. End-stage renal disease. Patient has started dialysis just this week. She has been dialyzed twice and we will plan to dialyze her again tomorrow. There is no emergent need for dialysis today. 2. Congestive heart failure. We have removed about 4 liters of fluid with dialysis over the last couple of days. She is oxygenating 90% on room air. We will try to remove fluid only as tolerated now. 3. Anemia. Most likely she has blood loss anemia as she has been on chronic anticoagulation with Xarelto. Patient has advanced renal failure and probably not very safe for Xarelto and I would suggest to stop it. Her anemia has worsened and she will be transfused 2 units of packed red blood cells (PRBC). I have explained to the patient and she consented. She also has iron deficiency, which is suggestive of chronic blood loss and she has already been started on intravenous Venofer 100 mg with each dialysis. 4. Bilateral lower extremity ulcers. Patient is afebrile and remains on wound care. I will defer to hospitalist service to consider a wound care consult.
--- NOTE | 2019-06-28 19:05 | IPNPDOC ---
Subjective Date Seen The patient was seen on 06/28/19. Subjective Chief Complaint/HPI 74f with dchf, afib, gi bleeds, dm, sick sinus syndrome, venous stasis ulcers, p/w progressively worsening renal function and acute diastolic chf. hypoglycemia has resolved, sugars beginning to creep up. complaining of burning pain in legs. tylenol not helping A full ROS was performed and negative with exception to what is documented above Objective Physical Examination General Exam: Positive: Alert, Mild Distress Eye Exam: Positive: PERRLA, Conjunctiva & lids normal, EOMI; Negative: Sclera icteric ENT Exam: Positive: Atraumatic, Mucous membr. moist/pink, Pharynx Normal Neck Exam: Positive: Supple; Negative: JVD, thyromegaly Chest Exam: Positive: Clear to auscultation, Diminished Heart Exam: Positive: Rate Normal, Regular Rhythm, Normal S1, Normal S2; Negative: Murmurs, Rubs Abdomen Exam: Positive: Normal bowel sounds, Soft; Negative: Tenderness, Hepatospenomegaly Extremity Exam: Positive: Edema; Negative: Clubbing, Cyanosis Skin Exam: Positive: Breakdown Neuro Exam: Positive: Normal Gait, Normal Speech, Cranial Nerves 3-12 NL, Reflexes 2+ Psych Exam: Positive: Mental status NL, Mood NL, Oriented x 3 Assessment /Plan Assessment 74f p/w worsening renal failure and acute chf requiring initiation of HD ESRD pt with temporary catheter for permacath placement monday after 48h without xarelto renal following discussed bed situation with SW who will discuss with facility and son DM hypoglycemia resolved continue sliding scale continue diabetic diet may need reintroduction of prandial insulin in next day or two Afib continue xarelto (holding after monday for procedure) continue bisoprolol acute diastolic chf resolving volume being managed with hd leg wounds/pain seen by surgery no need for debridement continue wound care surgeon had spoken to wound care team will start renally dosed gabapentin with prn oxycodone for severe pain Plan/VTE VTE Prophylaxis Ordered?: Yes VS, I&O, 24H, Fishbone Vital Signs/I&O Vital Signs Date Time Temp Pulse Resp B/P (MAP) Pulse Ox O2 Delivery O2 Flow Rate FiO2 06/28/19 16:00 98.4 75 16 96/46 (63) 94 06/25/19 09:00 Room Air I&O- Last 24 Hours up to 6 AM 06/28/19 06:00 Intake Total 780 ml Output Total 2000 ml Balance -1220 ml Laboratory Data 24H LABS Laboratory Tests 2 06/27/19 21:19: Bedside Glucose (Misc Panel) 128H 06/28/19 03:44: Immature Granulocyte % (Auto) 0.7, White Blood Count 5.8, Red Blood Count 2.86L, Hemoglobin 7.1L, Hematocrit 27.1L, Mean Corpuscular Volume 94.8, Mean Corpuscular Hemoglobin 24.8L, Mean Corpuscular Hemoglobin Concent 26.2L, Red Cell Distribution Width 28.6H, Platelet Count 140L, Neutrophils (%) (Auto) 77.2H, Lymphocytes (%) (Auto) 8.2L, Monocytes (%) (Auto) 12.2H, Eosinophils (%) (Auto) 0.7, Basophils (%) (Auto) 1.0, Neutrophils # (Auto) 4.4, Lymphocytes # (Auto) 0.5L, Monocytes # (Auto) 0.7, Eosinophils # (Auto) 0.0, Basophils # (Auto) 0.1, Nucleated Red Blood Cells % (auto) 2.3H, Anion Gap 7L, Glomerular Filtration Rate 20.7L, Blood Urea Nitrogen 41H, Creatinine 2.42H, Sodium Level 140, Potassium Level 4.1, Chloride Level 107, Carbon Dioxide Level 26, Calcium Level 8.6L 06/28/19 12:39: Bedside Glucose (Misc Panel) 167H 06/28/19 16:59: Bedside Glucose (Misc Panel) 202H CBC/BMP Laboratory Tests 06/28/19 03:44 Red Blood Count 2.86 L, Mean Corpuscular Volume 94.8, Mean Corpuscular Hemoglobin 24.8 L, Mean Corpuscular Hemoglobin Concent 26.2 L, Red Cell Distribution Width 28.6 H, Neutrophils (%) (Auto) 77.2 H, Lymphocytes (%) (Auto) 8.2 L, Monocytes (%) (Auto) 12.2 H, Eosinophils (%) (Auto) 0.7, Basophils (%) (Auto) 1.0, Neutrophils # (Auto) 4.4, Lymphocytes # (Auto) 0.5 L, Monocytes # (Auto) 0.7, Eosinophils # (Auto) 0.0, Basophils # (Auto) 0.1, Calcium Level 8.6 L TODD CARSON MD Jun 28, 2019 19:05
[2019-06-29 04:00] VITALS: BP 135/62
[2019-06-29 05:32] LABS: BASO # 0.1 10^3/uL (0.0-0.2); BASO % 1.5 % (0.0-1.0); EOS % 0.6 % (0.0-3.0); HEMATOCRIT 34.8 % (36.0-47.0); LYMPH # 0.5 10^3/uL (1.5-4.5); LYMPH % 9.4 % (24.0-44.0); MEAN CORPUSCULAR HEMOGLOBIN 25.9 pg (27.0-33.0); MEAN CORPUSCULAR HGB CONC 27.6 g/dl (32.0-36.5); MEAN CORPUSCULAR VOLUME 94.1 fl (80.0-96.0); MONO # 0.7 10^3/uL (0.0-0.8); MONO % 12.8 % (0.0-5.0); NEUTROPHILS % 75.3 % (36.0-66.0); PLATELET COUNT, AUTOMATED 130 10^3/uL (150-450); WHITE BLOOD COUNT 5.2 10^3/uL (4.0-10.0)
[2019-06-29 05:42] LABS: HEMOGLOBIN 9.6 g/dl (12.0-15.5)
[2019-06-29 05:53] LABS: CALCIUM LEVEL 8.9 MG/DL (8.8-10.2); CREATININE FOR GFR 2.94 MG/DL (0.55-1.30); GLOMERULAR FILTRATION RATE 16.5 (>39); POTASSIUM SERUM 4.5 MEQ/L (3.5-5.1)
[2019-06-29] MEDS: ACETAMINOPHEN 500 MG TAB PO SCH ×3 (06:29→21:46)
[2019-06-29] MEDS: HumaLOG INSULIN (NovoLOG) PER UNIT SC SCH ×6 (07:30→21:00)
[2019-06-29 08:00] VITALS: BP 108/54
[2019-06-29] MEDS ORDERED: MOM 30ML SUSPENSION UDC PO PRN (08:30)
[2019-06-29] MEDS: LEVEMIR (INSULIN DETEMIR) 1 UNITS/0.01ML SC SCH (08:35)
[2019-06-29] MEDS: GABAPENTIN 100 MG CAP PO SCH (08:36)
[2019-06-29] MEDS: DICYCLOMINE 10 MG CAP PO SCH ×2 (08:36→21:45)
[2019-06-29] MEDS: PANTOPRAZOLE 40MG TAB (PROTONIX) PO SCH ×2 (08:36→21:45)
[2019-06-29] MEDS: SENOKOT S TAB PO SCH ×2 (08:36→21:00)
[2019-06-29] MEDS: FERROUS SULFATE 325MG TAB PO SCH (08:36)
[2019-06-29] MEDS: NYSTATIN 100,000 UNITS/GM TOPICAL PWD 15 GM TOP SCH ×2 (08:38→21:46)
[2019-06-29] MEDS: BISOPROLOL FUMARATE 5 MG TAB PO SCH ×2 (09:00→20:55)
[2019-06-29] MEDS ORDERED: HEPARIN 1,000 UNITS/ML 10ML VIAL (FOR RADIOLOGY& DIALYSIS ONLY) XX ONE (11:30)
[2019-06-29] MEDS ORDERED: HEPARIN 1,000 UNITS/ML 10ML VIAL (FOR RADIOLOGY& DIALYSIS ONLY) IV ONE (11:30)
[2019-06-29 13:00] VITALS: BP 111/55
--- NOTE | 2019-06-29 13:35 | REP ---
Clinical: Left hydronephrosis. Technique: Axial noncontrast images from the lung bases to the pubic symphysis with coronal and sagittal re-formations. Comparison: 10/13/2018. Findings: Lung bases demonstrate moderate pericardial effusion, pulmonary vascular congestion, moderate right pleural effusion and partial collapse to the right lower lobe along with small left pleural effusion and minimal left lower lobe atelectasis. Extensive subcutaneous edema noted throughout the visualized abdomen and pelvis consistent with the given history of end-stage renal disease. The kidneys demonstrate bilateral atrophy along with nonobstructing intrarenal calculi measuring up to 13 mm in the lower pole left kidney along with mild symmetric chronic perinephric stranding. There is no evidence for hydroureteronephrosis or obstructing ureteral calculi. Liver, spleen, pancreas, gallbladder, and bilateral adrenal glands are normal. The enteric system is without obstruction or acute inflammatory process. Pelvis demonstrates normal bladder and mildly prominent uterus/adnexa. No significant ascites. No free air. No significant adenopathy. Atherosclerotic changes to the aorta and vasculature noted. Osseous structures demonstrate degenerative changes. Impression: 1. Lung bases demonstrate considerable findings as detailed above including moderate pericardial effusion, pleural effusions (right greater than left) and basilar atelectasis (right greater than left) 2. Moderate subcutaneous interstitial edema consistent with end-stage renal disease and third spacing. 3. Kidneys demonstrate atrophic change and bilateral nonobstructing calculi without evidence for hydronephrosis. Electronically Signed by Felipe Diop MD 06/29/2019 01:26 P
--- NOTE | 2019-06-29 17:38 | IPNPDOC ---
Subjective Date Seen The patient was seen on 06/29/19. Subjective Chief Complaint/HPI 74f with dchf, afib, gi bleeds, dm, sick sinus syndrome, venous stasis ulcers, p/w progressively worsening renal function and acute diastolic chf. pain is better with gabapentin, complaining of constipation, refusing insulin A full ROS was performed and negative with exception to what is documented above Objective Physical Examination General Exam: Positive: Alert, Mild Distress Eye Exam: Positive: PERRLA, Conjunctiva & lids normal, EOMI; Negative: Sclera icteric ENT Exam: Positive: Atraumatic, Mucous membr. moist/pink, Pharynx Normal Neck Exam: Positive: Supple; Negative: JVD, thyromegaly Chest Exam: Positive: Clear to auscultation, Diminished Heart Exam: Positive: Rate Normal, Regular Rhythm, Normal S1, Normal S2; Negative: Murmurs, Rubs Abdomen Exam: Positive: Normal bowel sounds, Soft; Negative: Tenderness, Hepatospenomegaly Extremity Exam: Positive: Edema; Negative: Clubbing, Cyanosis Skin Exam: Positive: Breakdown Neuro Exam: Positive: Normal Gait, Normal Speech, Cranial Nerves 3-12 NL, Reflexes 2+ Psych Exam: Positive: Mental status NL, Mood NL, Oriented x 3 Assessment /Plan Assessment 74f p/w worsening renal failure and acute chf requiring initiation of HD ESRD pt with temporary catheter for permacath placement monday after 48h without xarelto renal following discussed bed situation with SW who will discuss with facility and son DM hypoglycemia resolved continue sliding scale continue diabetic diet may need reintroduction of prandial insulin in next day or two Afib xarelto on hold, will switch to eliquis after procedure continue bisoprolol acute diastolic chf resolving volume being managed with hd leg wounds/pain seen by surgery no need for debridement continue wound care surgeon had spoken to wound care team continue gabapentin Plan/VTE VTE Prophylaxis Ordered?: Yes VS, I&O, 24H, Fishbone Vital Signs/I&O Vital Signs Date Time Temp Pulse Resp B/P (MAP) Pulse Ox O2 Delivery O2 Flow Rate FiO2 06/29/19 13:00 97.4 79 20 111/55 (73) 95 06/25/19 09:00 Room Air I&O- Last 24 Hours up to 6 AM 06/29/19 06:00 Intake Total 2260 ml Output Total 100 ml Balance 2160 ml Laboratory Data 24H LABS Laboratory Tests 2 06/28/19 20:12: Bedside Glucose (Misc Panel) 207H 06/29/19 05:19: Immature Granulocyte % (Auto) 0.4, White Blood Count 5.2, Red Blood Count 3.70L, Hemoglobin 9.6#L, Hematocrit 34.8L, Mean Corpuscular Volume 94.1, Mean Corpuscular Hemoglobin 25.9L, Mean Corpuscular Hemoglobin Concent 27.6L, Red Cell Distribution Width 26.5H, Platelet Count 130L, Neutrophils (%) (Auto) 75.3H, Lymphocytes (%) (Auto) 9.4L, Monocytes (%) (Auto) 12.8H, Eosinophils (%) (Auto) 0.6, Basophils (%) (Auto) 1.5H, Neutrophils # (Auto) 4.0, Lymphocytes # (Auto) 0.5L, Monocytes # (Auto) 0.7, Eosinophils # (Auto) 0.0, Basophils # (Auto) 0.1, Nucleated Red Blood Cells % (auto) 0.8H, Anion Gap 8, Glomerular Filtration Rate 16.5L, Blood Urea Nitrogen 55H, Creatinine 2.94H, Sodium Level 135L, Potassium Level 4.5, Chloride Level 105, Carbon Dioxide Level 22, Calcium Level 8.9 06/29/19 14:07: Bedside Glucose (Misc Panel) 213H 06/29/19 17:20: Bedside Glucose (Misc Panel) 221H CBC/BMP Laboratory Tests 06/29/19 05:19 Red Blood Count 3.70 L, Mean Corpuscular Volume 94.1, Mean Corpuscular Hemoglobin 25.9 L, Mean Corpuscular Hemoglobin Concent 27.6 L, Red Cell Distribution Width 26.5 H, Neutrophils (%) (Auto) 75.3 H, Lymphocytes (%) (Auto) 9.4 L, Monocytes (%) (Auto) 12.8 H, Eosinophils (%) (Auto) 0.6, Basophils (%) (A uto) 1.5 H, Neutrophils # (Auto) 4.0, Lymphocytes # (Auto) 0.5 L, Monocytes # (Auto) 0.7, Eosinophils # (Auto) 0.0, Basophils # (Auto) 0.1, Calcium Level 8.9 TODD CARSON MD Jun 29, 2019 17:38
[2019-06-29 18:00] VITALS: BP 115/48
[2019-06-29] MEDS: FLUTICASONE PROP 0.05% NASAL SPRAY 16 GM (FLONASE) SCH (18:00)
[2019-06-29 22:00] VITALS: BP 99/55
[2019-06-30] MEDS: ACETAMINOPHEN 500 MG TAB PO SCH ×3 (05:50→21:59)
[2019-06-30 06:00] VITALS: BP 125/52
[2019-06-30 06:36] LABS: BASO # 0.1 10^3/uL (0.0-0.2); BASO % 1.2 % (0.0-1.0); EOS # 0.1 10^3/uL (0.0-0.50); EOS % 1.8 % (0.0-3.0); HEMATOCRIT 34.9 % (36.0-47.0); HEMOGLOBIN 9.7 g/dl (12.0-15.5); LYMPH # 0.5 10^3/uL (1.5-4.5); LYMPH % 10.5 % (24.0-44.0); MEAN CORPUSCULAR HEMOGLOBIN 26.9 pg (27.0-33.0); MEAN CORPUSCULAR HGB CONC 27.8 g/dl (32.0-36.5); MEAN CORPUSCULAR VOLUME 96.7 fl (80.0-96.0); MONO # 0.6 10^3/uL (0.0-0.8); MONO % 11.9 % (0.0-5.0); NEUTROPHILS # 3.8 10^3/uL (1.8-7.7); PLATELET COUNT, AUTOMATED 110 10^3/uL (150-450); RED BLOOD COUNT 3.61 10^6/uL (4.00-5.40); WHITE BLOOD COUNT 5.1 10^3/uL (4.0-10.0)
[2019-06-30 06:55] LABS: CALCIUM LEVEL 9.1 MG/DL (8.8-10.2); CREATININE FOR GFR 2.6 MG/DL (0.55-1.30); GLOMERULAR FILTRATION RATE 19.1 (>39); POTASSIUM SERUM 4.1 MEQ/L (3.5-5.1)
[2019-06-30] MEDS ORDERED: HumaLOG INSULIN (NovoLOG) PER UNIT SC SCH ×2 (07:30)
[2019-06-30] MEDS: HumaLOG INSULIN (NovoLOG) PER UNIT SC SCH ×7 (07:47→21:00)
[2019-06-30] MEDS: LEVEMIR (INSULIN DETEMIR) 1 UNITS/0.01ML SC SCH (08:30)
[2019-06-30] MEDS: GABAPENTIN 100 MG CAP PO SCH (08:37)
[2019-06-30] MEDS: BISOPROLOL FUMARATE 5 MG TAB PO SCH ×2 (08:37→21:58)
[2019-06-30] MEDS: DICYCLOMINE 10 MG CAP PO SCH (08:37)
[2019-06-30] MEDS: FERROUS SULFATE 325MG TAB PO SCH (08:37)
[2019-06-30] MEDS: PANTOPRAZOLE 40MG TAB (PROTONIX) PO SCH ×2 (08:37→21:58)
[2019-06-30] MEDS: SENOKOT S TAB PO SCH ×2 (08:38→21:58)
[2019-06-30] MEDS: NYSTATIN 100,000 UNITS/GM TOPICAL PWD 15 GM TOP SCH ×2 (08:39→21:57)
[2019-06-30 10:00] VITALS: BP 121/53
--- NOTE | 2019-06-30 10:26 | IPN ---
DATE: 06/29/2019 SUBJECTIVE: The patient was seen and examined at the bedside today morning during hemodialysis procedure. She is being dialyzed via the right IJ catheter. She is tolerating the hemodialysis procedure. She denies any active complaints. OBJECTIVE: VITAL SIGNS: Temperature is 97.8 degrees Fahrenheit. Blood pressure 108/54, pulse is 74, respiratory rate of 22, saturating 96% on room air. INTAKE AND OUTPUT: There is no significant urine output recorded. Weight on the bed scale is 124.5 kg. PHYSICAL EXAMINATION: GENERAL: The patient is awake, alert, oriented times three, morbidly obese, laying in bed getting hemodialysis done. HEAD AND NECK EXAM: Extraocular muscles intact. Pupils equally round and reactive to light. Neck is supple. She has a right IJ non tunneled hemodialysis catheter. CARDIOVASCULAR: S1, S2. 3+ edema of the bilateral lower extremities up to thighs. RESPIRATORY: Chest is clear to auscultation bilaterally. Bilateral equal air entry. No rales or rhonchi. ABDOMEN: Soft, obese, positive bowel sounds. 3+ edema of the abdominal wall as well. GENITOURINARY: Bladder is not palpable. MUSCULOSKELETAL: Decreased range of movement of the lower extremities and 3+ edema on the legs and thighs. BIODIESEL PROCESSING TECHNICIAN: No focal deficit power is 5/5 in bilateral upper extremities. LAB REVIEW: CBC showed WBC 5.2, hemoglobin 9.6, platelets of 130. BMP showed sodium 135, potassium 4.55, chloride 105, bicarb 22, BUN 55, creatinine is 2.9. IMAGING STUDIES: The patient's renal ultrasound done on June 25 was removed. It showed a moderate amount of left-sided hydronephrosis. CT scan of the abdomen and pelvis after dialysis was done today, without contrast, which showed moderate pericardial effusion, pleural effusions right greater than left, moderate amount of subcutaneous interstitial edema and kidneys showed atrophic changes and bilateral nonobstructing calculi without evidence of hydronephrosis. CURRENT INPATIENT MEDICATIONS: The patient's medications were all reviewed by me. She continues to be on IV Venofer with dialysis. No other change in the medications today as compared with yesterday. ASSESSMENT/PLAN: 1. End-stage renal disease on hemodialysis. Patient is being dialyzed today. I will try to remove at least 2.5 to 3 liters fluid as tolerated. Next hemodialysis will be done again on Monday for optimization of fluid status. 2. Decompensated diastolic congestive heart failure. It is secondary to aortic stenosis and end-stage renal disease. 2.5 liters of fluid removal today and further fluid optimization will be done with dialysis on Monday. 3. Anemia secondary to end-stage renal disease and iron deficiency. The patient is getting IV Venofer. She also got 2 units of PRBC transfusion. I would also start the patient on Aranesp IV with dialysis once IV iron is given. No further need of blood transfusion at this time. 4. Diabetes mellitus type 2, insulin dependent. Continue current dose of insulin sliding scale along with Levemir.
[2019-06-30 14:00] VITALS: BP 109/53
--- NOTE | 2019-06-30 17:59 | IPNPDOC ---
Subjective Date Seen The patient was seen on 06/30/19. Subjective Chief Complaint/HPI 74f with dchf, afib, gi bleeds, dm, sick sinus syndrome, venous stasis ulcers, p/w progressively worsening renal function and acute diastolic chf. constipation has resolved, pt without complaint. However later in day developed delirium and hallucinations A full ROS was performed and negative with exception to what is documented above Objective Physical Examination General Exam: Positive: Alert, Mild Distress Eye Exam: Positive: PERRLA, Conjunctiva & lids normal, EOMI; Negative: Sclera icteric ENT Exam: Positive: Atraumatic, Mucous membr. moist/pink, Pharynx Normal Neck Exam: Positive: Supple; Negative: JVD, thyromegaly Chest Exam: Positive: Clear to auscultation, Diminished Heart Exam: Positive: Rate Normal, Regular Rhythm, Normal S1, Normal S2; Negative: Murmurs, Rubs Abdomen Exam: Positive: Normal bowel sounds, Soft; Negative: Tenderness, Hepatospenomegaly Extremity Exam: Positive: Edema; Negative: Clubbing, Cyanosis Skin Exam: Positive: Breakdown Neuro Exam: Positive: Normal Gait, Normal Speech, Cranial Nerves 3-12 NL, Reflexes 2+ Psych Exam: Positive: Mental status NL, Mood NL, Oriented x 3 Assessment /Plan Assessment 74f p/w worsening renal failure and acute chf requiring initiation of HD ESRD pt with temporary catheter for permacath placement monday after 48h without xarelto renal following DM hypoglycemia resolved continue sliding scale continue diabetic diet continue levemir and prandial insulin adjusting for hyperglycemia Afib xarelto on hold, will switch to eliquis after procedure continue bisoprolol acute diastolic chf resolving volume being managed with hd leg wounds/pain seen by surgery no need for debridement continue wound care Delirium multifactorial will dc gabapentin, bentyl, and oxycodone (although hasnt received oxy) continue reorientation Plan/VTE VTE Prophylaxis Ordered?: Yes VS, I&O, 24H, Fishbone Vital Signs/I&O Vital Signs Date Time Temp Pulse Resp B/P (MAP) Pulse Ox O2 Delivery O2 Flow Rate FiO2 06/30/19 14:00 97.4 82 18 109/53 (71) 90 06/25/19 09:00 Room Air I&O- Last 24 Hours up to 6 AM 06/30/19 05:59 Intake Total 600 ml Output Total 2500 ml Balance -1900 ml Laboratory Data 24H LABS Laboratory Tests 2 06/29/19 21:46: Bedside Glucose (Misc Panel) 163H 06/30/19 06:03: Immature Granulocyte % (Auto) 0.6, White Blood Count 5.1, Red Blood Count 3.61L, Hemoglobin 9.7L, Hematocrit 34.9L, Mean Corpuscular Volume 96.7H, Mean Corpuscul ar Hemoglobin 26.9L, Mean Corpuscular Hemoglobin Concent 27.8L, Red Cell Distribution Width 26.9H, Platelet Count 110L, Neutrophils (%) (Auto) 74.0H, Lymphocytes (%) (Auto) 10.5L, Monocytes (%) (Auto) 11.9H, Eosinophils (%) (Auto) 1.8, Basophils (%) (Auto) 1.2H, Neutrophils # (Auto) 3.8, Lymphocytes # (Auto) 0.5L, Monocytes # (Auto) 0.6, Eosinophils # (Auto) 0.1, Basophils # (Auto) 0.1, Nucleated Red Blood Cells % (auto) 0.4H, Anion Gap 8, Glomerular Filtration Rate 19.1L, Blood Urea Nitrogen 38H, Creatinine 2.60H, Sodium Level 137, Potassium Level 4.1, Chloride Level 104, Carbon Dioxide Level 25, Calcium Level 9.1 06/30/19 11:23: Bedside Glucose (Misc Panel) 272H 06/30/19 16:42: Bedside Glucose (Misc Panel) 217H CBC/BMP Laboratory Tests 06/30/19 06:03 Red Blood Count 3.61 L, Mean Corpuscular Volume 96.7 H, Mean Corpuscular Hemog lobin 26.9 L, Mean Corpuscular Hemoglobin Concent 27.8 L, Red Cell Distribution Width 26.9 H, Neutrophils (%) (Auto) 74.0 H, Lymphocytes (%) (Auto) 10.5 L, Monocytes (%) (Auto) 11.9 H, Eosinophils (%) (Auto) 1.8, Basophils (%) (Auto) 1.2 H, Neutrophils # (Auto) 3.8, Lymphocytes # (Auto) 0.5 L, Monocytes # (Auto) 0.6, Eosinophils # (Auto) 0.1, Basophils # (Auto) 0.1, Calcium Level 9.1 TODD CARSON MD Jun 30, 2019 17:59
[2019-06-30 18:00] VITALS: BP 100/51
[2019-06-30] MEDS: FLUTICASONE PROP 0.05% NASAL SPRAY 16 GM (FLONASE) SCH (18:20)
[2019-06-30 22:00] VITALS: BP 141/71
[2019-07-01 02:00] VITALS: BP 119/59
[2019-07-01 05:45] LABS: BASO # 0.1 10^3/uL (0.0-0.2); BASO % 1.8 % (0.0-1.0); EOS # 0.2 10^3/uL (0.0-0.50); EOS % 3.6 % (0.0-3.0); HEMATOCRIT 36.5 % (36.0-47.0); HEMOGLOBIN 10.3 g/dl (12.0-15.5); LYMPH # 0.8 10^3/uL (1.5-4.5); MEAN CORPUSCULAR HEMOGLOBIN 27.7 pg (27.0-33.0); MEAN CORPUSCULAR HGB CONC 28.2 g/dl (32.0-36.5); MEAN CORPUSCULAR VOLUME 98.1 fl (80.0-96.0); MONO # 0.7 10^3/uL (0.0-0.8); MONO % 13.2 % (0.0-5.0); NEUTROPHILS # 3.3 10^3/uL (1.8-7.7); NEUTROPHILS % 64.6 % (36.0-66.0); PLATELET COUNT, AUTOMATED 115 10^3/uL (150-450); RED BLOOD COUNT 3.72 10^6/uL (4.00-5.40); WHITE BLOOD COUNT 5.1 10^3/uL (4.0-10.0)
[2019-07-01 06:00] VITALS: BP 111/63
[2019-07-01 06:10] LABS: CALCIUM LEVEL 9.4 MG/DL (8.8-10.2); CREATININE FOR GFR 3.15 MG/DL (0.55-1.30); GLOMERULAR FILTRATION RATE 15.3 (>39); POTASSIUM SERUM 3.9 MEQ/L (3.5-5.1)
--- NOTE | 2019-07-01 06:19 | IPN ---
DATE OF SERVICE: 06/30/2019 SUBJECTIVE: The patient was seen and examined on the bedside today morning and the son was present at the bedside. She was dialyzed yesterday. She tolerated the hemodialysis procedure well. The patient's son reports that the patient is having episodes of hallucinations. She is reporting that she saw a small kids in the room. Otherwise the patient is awake and able to answer questions. OBJECTIVE: VITAL SIGNS: Temperature is 97.4 degrees Fahrenheit, blood pressure 109/53, pulse is 82, respiratory of 18, saturating 90% on room air. Intake and output: Urine output recorded is only 125 mL. Ultrafiltration with hemodialysis was 2.5 liters, weight in the bed scale is not available. PHYSICAL EXAMINATION: GENERAL: The patient is awake, alert, oriented time three, morbidly obese, laying in bed in no apparent distress. HEAD AND NECK EXAM: Extraocular muscles intact. Pupils equally round and reactive to light. The patient has a nasal cannula. Mucous membranes are moist. NECK: Neck is supple. She has a large right internal jugular (IJ) and non tunneled hemodialysis catheter. CARDIOVASCULAR: S1, s2, regular rate, about 3+ edema of the bilateral lower extremities. RESPIRATORY: Chest is clear to auscultation bilaterally. Bilateral equal air entry. No rales or rhonchi. ABDOMEN: Abdomen is soft, obese, positive bowel sounds. Edema of the abdominal wall was noted. MUSCULOSKELETAL: She has ulcers on the bilateral lower extremities and she has 3+ edema of the legs. CENTRAL NERVOUS SYSTEM (INTEGRITY ASSESSOR): No focal deficit, power is 05/05 in bilateral upper extremities. LABORATORY REVIEW: CBC showed WBC 5.1, hemoglobin 9.7, platelets of 110. Basic metabolic profile (BMP) showed sodium 137, potassium 4.1, chloride 104, bicarb 25, BUN 38, creatinine is 2.6. CURRENT INPATIENT MEDICATIONS: The patient's medications were all reviewed by me. Oxycodone has been stopped. Insulin dose has been adjusted. Gabapentin has been stopped and Bentyl has been stopped as well. ASSESSMENT/PLAN: 1. End-stage renal disease on hemodialysis. The patient was dialyzed yesterday. However, I will try to do dialysis again tomorrow morning because of extensive fluid overload. 2. Decompensated diastolic congestive heart failure. The patient has aortic stenosis and has end-stage renal disease. The patient would need further fluid removal and she might need [id number] hemodialysis and ultrafiltration for the next few days. 3. Anemia and end-stage renal disease. The patient is currently getting IV Venofer, hemoglobin level is slowly improving with IV iron. 3. Diabetes mellitus type 2. Insulin dependent. The patient's insulin dose has already been changed by the primary team. 4. Hallucinations. The patient is in renal failure. Her oxycodone, gabapentin and dicyclomine have been stopped.
[2019-07-01] MEDS: SENOKOT S TAB PO SCH ×2 (06:29→21:55)
[2019-07-01] MEDS: BISOPROLOL FUMARATE 5 MG TAB PO SCH ×2 (06:30→21:56)
[2019-07-01] MEDS: PANTOPRAZOLE 40MG TAB (PROTONIX) PO SCH ×2 (06:30→21:56)
[2019-07-01] MEDS: FERROUS SULFATE 325MG TAB PO SCH (06:30)
[2019-07-01] MEDS: NYSTATIN 100,000 UNITS/GM TOPICAL PWD 15 GM TOP SCH ×2 (06:31→21:56)
[2019-07-01] MEDS: ACETAMINOPHEN 500 MG TAB PO SCH ×3 (06:31→21:57)
[2019-07-01] MEDS: HumaLOG INSULIN (NovoLOG) PER UNIT SC SCH ×7 (07:59→21:00)
[2019-07-01] MEDS: LEVEMIR (INSULIN DETEMIR) 1 UNITS/0.01ML SC SCH (08:00)
[2019-07-01 10:00] VITALS: BP 102/50
[2019-07-01] MEDS ORDERED: HEPARIN 1,000 UNITS/ML 10ML VIAL (FOR RADIOLOGY& DIALYSIS ONLY) IV ONE (11:15)
[2019-07-01] MEDS ORDERED: HEPARIN 1,000 UNITS/ML 10ML VIAL (FOR RADIOLOGY& DIALYSIS ONLY) XX ONE (11:15)
--- NOTE | 2019-07-01 14:34 | IPNPDOC ---
Subjective Date Seen The patient was seen on 07/01/19. Subjective Chief Complaint/HPI 74f with dchf, afib, gi bleeds, dm, sick sinus syndrome, venous stasis ulcers, p/w progressively worsening renal function and acute diastolic chf. delirium has improved off gabapentin, oxy and bentyl A full ROS was performed and negative with exception to what is documented above Objective Physical Examination General Exam: Positive: Alert, Mild Distress Eye Exam: Positive: PERRLA, Conjunctiva & lids normal, EOMI; Negative: Sclera icteric ENT Exam: Positive: Atraumatic, Mucous membr. moist/pink, Pharynx Normal Neck Exam: Positive: Supple; Negative: JVD, thyromegaly Chest Exam: Positive: Clear to auscultation, Diminished Heart Exam: Positive: Rate Normal, Regular Rhythm, Normal S1, Normal S2; Negative: Murmurs, Rubs Abdomen Exam: Positive: Normal bowel sounds, Soft; Negative: Tenderness, Hepatospenomegaly Extremity Exam: Positive: Edema; Negative: Clubbing, Cyanosis Skin Exam: Positive: Breakdown Neuro Exam: Positive: Normal Gait, Normal Speech, Cranial Nerves 3-12 NL, Reflexes 2+ Psych Exam: Positive: Mental status NL, Mood NL, Oriented x 3 Assessment /Plan Assessment 74f p/w worsening renal failure and acute chf requiring initiation of HD ESRD pt with temporary catheter for permacath placement today after 48h without xarelto renal following dc when outpatient hd set up DM hypoglycemia resolved continue sliding scale continue diabetic diet continue levemir and prandial insulin adjusting for hyperglycemia Afib xarelto on hold, will switch to eliquis after procedure continue bisoprolol acute diastolic chf resolving volume being managed with hd leg wounds/pain seen by surgery no need for debridement continue wound care Delirium multifactorial holding gabapentin, bentyl, and oxycodone (although hasnt received oxy) improved Plan/VTE VTE Prophylaxis Ordered?: Yes VS, I&O, 24H, [place] Vital Signs/I&O Vital Signs Date Time Temp Pulse Resp B/P (MAP) Pulse Ox O2 Delivery O2 Flow Rate FiO2 07/01/19 10:00 97.8 88 17 102/50 (67) 90 06/25/19 09:00 Room Air I&O- Last 24 Hours up to 6 AM 07/01/19 06:00 Intake Total 980 ml Output Total 125 ml Balance 855 ml Laboratory Data 24H LABS Laboratory Tests 2 06/30/19 16:42: Bedside Glucose (Misc Panel) 217H 06/30/19 20:23: Bedside Glucose (Misc Panel) 138H 07/01/19 05:29: Immature Granulocyte % (Auto) 0.8, White Blood Count 5.1, Red Blood Count 3.72L, Hemoglobin 10.3L, Hematocrit 36.5, Mean Corpuscular Volume 98.1H, Mean Corpuscular Hemoglobin 27.7, Mean Corpuscular Hemoglobin Concent 28.2L, Red Cell Distribution Width 27.9H, Platelet Count 115L, Neutrophils (%) (Auto) 64.6, Lymphocytes (%) (Auto) 16.0L, Monocytes (%) (Auto) 13.2H, Eosinophils (%) (Auto) 3.6H, Basophils (%) (Auto) 1.8H, Neutrophils # (Auto) 3.3, Lymphocytes # (Auto) 0.8L, Monocytes # (Auto) 0.7, Eosinophils # (Auto) 0.2, Basophils # (Auto) 0.1, Nucleated Red Blood Cells % (auto) 0.0, Anion Gap 4L, Glomerular Filtration Rate 15.3L, Blood Urea Nitrogen 47H, Creatinine 3.15H, Sodium Level 137, Potassium Level 3.9, Chloride Level 106, Carbon Dioxide Level 27, Calcium Level 9.4 CBC/BMP Laboratory Tests 07/01/19 05:29 Red Blood Count 3.72 L, Mean Corpuscular Volume 98.1 H, Mean Corpuscular Hemoglobin 27.7, Mean Corpuscular Hemoglobin Concent 28.2 L, Red Cell Distribution Width 27.9 H, Neutrophils (%) (Auto) 64.6, Lymphocytes (%) (Auto) 16.0 L, Monocytes (%) (Auto) 13.2 H, Eosinophils (%) (Auto) 3.6 H, Basophils (%) (Auto) 1.8 H, Neutrophils # (Auto) 3.3, Lymphocytes # (Auto) 0.8 L, Monocytes # (Auto) 0.7, Eosinophils # (Auto) 0.2, Basophils # (Auto) 0.1, Calcium Level 9.4 TODD CARSON MD Jul 01, 2019 14:34
[2019-07-01] MEDS ORDERED: LIDOCAINE 1% MDV 20ML VIAL As Ordered ONE (15:24)
[2019-07-01] MEDS ORDERED: HEPARIN 1,000 UNITS/ML 10ML VIAL (FOR RADIOLOGY& DIALYSIS ONLY) As Ordered ONE (15:24)
[2019-07-01] MEDS ORDERED: ISOVUE-300 61% 50ML VIAL (Q9967) As Ordered ONE (15:24)
[2019-07-01] MEDS ORDERED: fentaNYL 100 MCG/2 ML INJECTION (J3010) As Ordered ONE (15:49)
--- NOTE | 2019-07-01 16:18 | POST-OPPD ---
Postoperative Procedure Note Date Of Procedure: Jul 01, 2019 Time Of Procedure: 16:16 PREOPERATIVE DIAGNOSIS: renal failure. needs laborer marine terminal dialysis. POSTOPERATIVE DIAGNOSIS: renal failure. needs shelter dialysis FINDINGS: vas cath in place PROCEDURE: vas cath to permcath conversion SURGEON: Amira ESTIMATED BLOOD LOSS: < 15 ml COMPLICATIONS: none POSTOPERATIVE CONDITION: stable GITA HILL MD Jul 01, 2019 16:18
--- NOTE | 2019-07-01 17:54 | IPN ---
DATE: 07/01/2019 SUBJECTIVE: The patient was seen and examined at the bedside today morning during hemodialysis. She is tolerating the hemodialysis procedure well. She denies any active complaints. The patient is also pending right internal jugular (IJ) tunneled hemodialysis catheter placement in the afternoon. OBJECTIVE: VITAL SIGNS: Temperature is 98.2 degrees Fahrenheit, blood pressure 102/50, pulse is 74, respiratory rate of 16, saturating 94% on room air. INTAKE AND OUTPUT: There is no urine output recorded. Weight in the bed scale is not available. PHYSICAL EXAMINATION: GENERAL: The patient is awake, alert, oriented times three, morbidly obese, laying in bed, getting hemodialysis done. HEAD AND NECK: Extraocular muscles intact. Pupils equally round and reactive to light. Neck is supple. She has a right internal jugular (IJ) nontunneled hemodialysis catheter which is being used for dialysis. CARDIOVASCULAR: S1, S2, 3+ edema of the bilateral lower extremities. RESPIRATORY: Chest is clear to auscultation bilaterally. Bilateral equal air entry. No rales or rhonchi. ABDOMEN: Soft, obese, positive bowel sounds, 2+ abdominal wall edema was noted. MUSCULOSKELETAL: No clubbing or cyanosis. She has ulcers and edema of the bilateral lower extremities. CENTRAL NERVOUS SYSTEM (XM1 TANK DRIVER): No focal deficit. Power is 5/5 in bilateral lower extremities. LABORATORY REVIEW: CBC showed a WBC 5.1, hemoglobin 10.3, platelets are 115. BMP showed sodium 137, potassium 3.9, chloride 106, bicarbonate 27, BUN 47, creatinine is 3.15. CURRENT INPATIENT MEDICATIONS: The patient's medications were all reviewed by me. There is no change in the medications today as compared with yesterday. ASSESSMENT AND PLAN: 1. End-stage renal disease, on hemodialysis. The patient is being dialyzed according to her schedule. The patient is getting ultrafiltration because of the fluid overload. She will be dialyzed tomorrow morning. 2. Decompensated diastolic congestive heart failure. The patient has significant edema on the imaging as well. She will need [id number] ultrafiltration and hemodialysis for a few days. 3. Anemia and end-stage renal disease. The patient's hemoglobin is improving. Continue current dose of IV Venofer with dialysis.
[2019-07-01 18:00] VITALS: BP 122/55
[2019-07-01] MEDS: FLUTICASONE PROP 0.05% NASAL SPRAY 16 GM (FLONASE) SCH (18:16)
[2019-07-01 22:00] VITALS: BP 132/61
[2019-07-02 02:00] VITALS: BP 116/59
[2019-07-02 06:00] VITALS: BP 122/56
[2019-07-02] MEDS: ACETAMINOPHEN 500 MG TAB PO SCH ×3 (06:18→23:05)
[2019-07-02 06:41] LABS: BASO # 0.1 10^3/uL (0.0-0.2); BASO % 1.8 % (0.0-1.0); EOS # 0.3 10^3/uL (0.0-0.50); EOS % 5.5 % (0.0-3.0); HEMATOCRIT 36.9 % (36.0-47.0); HEMOGLOBIN 9.9 g/dl (12.0-15.5); LYMPH # 0.8 10^3/uL (1.5-4.5); LYMPH % 18.4 % (24.0-44.0); MEAN CORPUSCULAR HEMOGLOBIN 26.6 pg (27.0-33.0); MEAN CORPUSCULAR HGB CONC 26.8 g/dl (32.0-36.5); MEAN CORPUSCULAR VOLUME 99.2 fl (80.0-96.0); MONO # 0.6 10^3/uL (0.0-0.8); NEUTROPHILS # 2.7 10^3/uL (1.8-7.7); NEUTROPHILS % 59.6 % (36.0-66.0); PLATELET COUNT, AUTOMATED 104 10^3/uL (150-450); RED BLOOD COUNT 3.72 10^6/uL (4.00-5.40); WHITE BLOOD COUNT 4.6 10^3/uL (4.0-10.0)
[2019-07-02 06:58] LABS: CALCIUM LEVEL 9.1 MG/DL (8.8-10.2); CREATININE FOR GFR 2.61 MG/DL (0.55-1.30); POTASSIUM SERUM 3.8 MEQ/L (3.5-5.1)
[2019-07-02] MEDS: HumaLOG INSULIN (NovoLOG) PER UNIT SC SCH ×7 (07:30→21:00)
[2019-07-02] MEDS: PANTOPRAZOLE 40MG TAB (PROTONIX) PO SCH ×2 (07:54→23:05)
[2019-07-02] MEDS: FERROUS SULFATE 325MG TAB PO SCH (07:54)
[2019-07-02] MEDS: BISOPROLOL FUMARATE 5 MG TAB PO SCH ×2 (07:54→21:00)
[2019-07-02] MEDS: SENOKOT S TAB PO SCH ×2 (07:55→23:02)
--- NOTE | 2019-07-02 07:56 | REP ---
IR vas cath to PermCath exchange. PermCath placement using fluoroscopy guidance. Clinical information: Renal failure. Requires custodial dialysis. Physician: Dr. Collier. Procedure: The patient' family was advised of the benefits, risks and alternatives of the procedure and informed consent was obtained. The time-out was performed with verification of the patient's name, MRN, site of procedure and type of procedure to be performed. The patient was positioned in the supine position on the angiographic table. The site was prepped and draped in the usual sterile fashion. Moderate sedation was not required. The physician spent 30 minutes face to face time with the patient. A class a truck driver radiograph reveals a right-sided vas cath in appropriate position. The heparin lock was aspirated from the catheter. An Amplatz wire was advanced through the catheter into the inferior vena cava under fluoroscopy guidance. The sutures holding the catheter in place was cut and the catheter was removed over the wire. A dilator was advanced over the wire under fluoroscopy guidance into the SVC. A tunneling device was used to tunnel the PermCath through the subcutaneous tissues to the venotomy site. The dilator was removed and a peel-away sheath was advanced over the wire into the superior vena cava. The wire was removed and a Palindrome Perma-Cath was advanced through the peel-away sheath and the tip positioned in the right atrium. The peel-away sheath was removed. The catheter was sutured in position with 2-0 Prolene. Both ports aspirated and flushed easily. High-dose heparin was used to lock each port and a sterile dressing was applied. The patient tolerated the procedure and was returned to the [facility] in stable condition. EBL: Less than 5 ml. Complications: None. 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 The catheter is ready for immediate use. Thank you this referral. Electronically Signed by Elly Collier MD 07/01/2019 05:21 P
[2019-07-02] MEDS: LEVEMIR (INSULIN DETEMIR) 1 UNITS/0.01ML SC SCH (08:10)
[2019-07-02] MEDS: NYSTATIN 100,000 UNITS/GM TOPICAL PWD 15 GM TOP SCH ×2 (08:49→23:06)
[2019-07-02] MEDS ORDERED: HEPARIN 1,000 UNITS/ML 10ML VIAL (FOR RADIOLOGY& DIALYSIS ONLY) IV ONE (10:00)
[2019-07-02] MEDS ORDERED: HEPARIN 1,000 UNITS/ML 10ML VIAL (FOR RADIOLOGY& DIALYSIS ONLY) XX ONE (10:00)
--- NOTE | 2019-07-02 12:26 | IPNPDOC ---
Text Note Date of Service The patient was seen on 07/02/19. NOTE Subjective: Objective: General: NAD HEENT: NC/AT Lungs: CTA B/L, diminished breath sounds Heart: +S1S2, RRR Abd: soft, NT, +BS A/P: 74f p/w worsening renal failure and acute chf requiring initiation of HD #ESRD pt with temporary catheter - will require back to back ultrafiltration/HD - follow as per renal - assistance appreciated #DM hypoglycemia resolved continue sliding scale continue diabetic diet continue levemir and prandial insulin adjusting for hyperglycemia #Afib xarelto on hold, will switch to eliquis after procedure continue bisoprolol #acute diastolic chf resolving volume being managed with hd #leg wounds/pain seen by surgery no need for debridement continue wound care #Delirium multifactorial holding gabapentin, bentyl, and oxycodone (although hasnt received oxy) improved VS,Fishbone, I+O VS, Fishbone, I+O Laboratory Tests 07/02/19 06:17 Red Blood Count 3.72 L, Mean Corpuscular Volume 99.2 H, Mean Corpuscular Hemoglobin 26.6 L, Mean Corpuscular Hemoglobin Concent 26.8 L, Red Cell Distribution Width 28.5 H, Neutrophils (%) (Auto) 59.6, Lymphocytes (%) (Auto) 18.4 L, Monocytes (%) (Auto) 14.0 H, Eosinophils (%) (Auto) 5.5 H, Basophils (%) (Auto) 1.8 H, Neutrophils # (Auto) 2.7, Lymphocytes # (Auto) 0.8 L, Monocytes # (Auto) 0.6, Eosinophils # (Auto) 0.3, Basophils # (Auto) 0.1, Calcium Level 9.1 Vital Signs Date Time Temp Pulse Resp B/P (MAP) Pulse Ox O2 Delivery O2 Flow Rate FiO2 07/02/19 07:54 79 110/50 07/02/19 06:00 97.6 16 93 07/01/19 16:12 2 I&O- Last 24 Hours up to 6 AM 07/02/19 05:59 Intake Total 390 ml Output Total 0 ml Balance 390 ml NIVIA OGMEZ MD Jul 02, 2019 12:26
[2019-07-02 13:40] VITALS: BP 113/51
[2019-07-02 18:00] VITALS: BP 120/60
[2019-07-02] MEDS: FLUTICASONE PROP 0.05% NASAL SPRAY 16 GM (FLONASE) SCH (18:17)
[2019-07-02 22:00] VITALS: BP 105/57
[2019-07-02 23:01] VITALS: BP 108/49
[2019-07-03] MEDS: SENOKOT S TAB PO SCH ×2 (05:48→21:00)
[2019-07-03 06:20] LABS: BASO # 0.1 10^3/uL (0.0-0.2); BASO % 1.8 % (0.0-1.0); EOS # 0.1 10^3/uL (0.0-0.50); EOS % 2.3 % (0.0-3.0); HEMATOCRIT 37.5 % (36.0-47.0); HEMOGLOBIN 10.1 g/dl (12.0-15.5); LYMPH # 0.8 10^3/uL (1.5-4.5); LYMPH % 17.8 % (24.0-44.0); MEAN CORPUSCULAR HEMOGLOBIN 27.2 pg (27.0-33.0); MEAN CORPUSCULAR HGB CONC 26.9 g/dl (32.0-36.5); MEAN CORPUSCULAR VOLUME 100.8 fl (80.0-96.0); MONO # 0.5 10^3/uL (0.0-0.8); MONO % 11.8 % (0.0-5.0); NEUTROPHILS # 2.9 10^3/uL (1.8-7.7); NEUTROPHILS % 65.6 % (36.0-66.0); RED BLOOD COUNT 3.72 10^6/uL (4.00-5.40); WHITE BLOOD COUNT 4.4 10^3/uL (4.0-10.0)
[2019-07-03 06:21] LABS: PLATELET COUNT, AUTOMATED 95 10^3/uL (150-450)
[2019-07-03 06:38] LABS: CALCIUM LEVEL 8.6 MG/DL (8.8-10.2); CREATININE FOR GFR 2.14 MG/DL (0.55-1.30); GLOMERULAR FILTRATION RATE 23.9 (>39); POTASSIUM SERUM 3.8 MEQ/L (3.5-5.1)
[2019-07-03 06:45] VITALS: BP 109/53
[2019-07-03] MEDS: BISOPROLOL FUMARATE 5 MG TAB PO SCH ×2 (06:52→23:22)
[2019-07-03] MEDS: ACETAMINOPHEN 500 MG TAB PO SCH ×3 (06:53→23:22)
[2019-07-03] MEDS: CLINDAMYCIN 900 MG in APPROPRIATE DILUENT 1 EA IV SCH ×3 (06:54→23:23)
[2019-07-03] MEDS: FERROUS SULFATE 325MG TAB PO SCH (06:54)
[2019-07-03] MEDS: PANTOPRAZOLE 40MG TAB (PROTONIX) PO SCH ×2 (06:54→23:21)
[2019-07-03] MEDS: NYSTATIN 100,000 UNITS/GM TOPICAL PWD 15 GM TOP SCH ×3 (06:55→23:23)
[2019-07-03] MEDS: HumaLOG INSULIN (NovoLOG) PER UNIT SC SCH ×7 (08:02→21:00)
[2019-07-03] MEDS: LEVEMIR (INSULIN DETEMIR) 1 UNITS/0.01ML SC SCH (08:02)
--- NOTE | 2019-07-03 08:03 | IPN ---
DATE OF VISIT: 07/02/2019 Mrs. Painter is seen this morning on her bedside. She is eating her breakfast at the time of my visit. She denies any nausea or vomiting. She has chronic generalized edema and advanced renal failure due to which hemodialysis has been initiated during this hospitalization. Her renal ultrasound and abdominal CT scan showed atrophic kidneys with bilateral nonobstructing stones and no hydronephrosis. She is felt to have end-stage renal disease and likely to continue with maintenance hemodialysis. She had frequent dialysis treatments and aggressive fluid removal is being attempted. She will be dialyzed again today. PHYSICAL EXAMINATION: Temperature 97.6 degrees Fahrenheit, heart rate 72 per minute and respiratory rate 16 per minute. Blood pressure 122/56 mmHg and oxygen saturation 93%. Head is atraumatic. Right-sided internal jugular vein dialysis catheter is in place. Heart sounds are irregular in rhythm. Lungs with diminished breath sounds. Abdomen obese, soft and nontender. Extremities without any cyanosis or clubbing. Bilateral lower extremity wounds are covered with dressing. Neurologically she is awake and at her baseline mentation. Today's labs show WBC count 4.6, hemoglobin 9.9 and hematocrit 36.9. Sodium 141, potassium 3.8, CO2 25, BUN 50 and creatinine 2.61. PROBLEMS: 1. End-stage renal disease. The patient has started dialysis during this admission. She will continue with maintenance hemodialysis three times a week as an outpatient. Right now we are trying frequent hemodialysis and ultrafiltration treatments in order to correct her hypervolemia. She will be dialyzed today and we will try to remove about 2 liters of fluid. 2. Anemia. Her hemoglobin was 7.1 on admission. She has been receiving intravenous iron and was also transfused 2 units of packed RBCs. She will continue with [facility] with hemodialysis. Her hemoglobin has improved significantly. She has severe iron deficiency on admission and will continue with intravenous Venofer for a total of 10 doses. 3. Bilateral lower extremity wounds. These are chronic and she continues with daily dressing changes.
[2019-07-03 10:00] VITALS: BP 109/53
--- NOTE | 2019-07-03 16:14 | IPNPDOC ---
Text Note Date of Service The patient was seen on 07/03/19. NOTE Subjective: Objective: General: NAD, generalized edema HEENT: NC/AT Lungs: CTA B/L, diminished breath sounds Heart: +S1S2, RRR Abd: soft, NT, +BS A/P: 74f p/w worsening renal failure and acute chf requiring initiation of HD #ESRD pt with temporary catheter - will require back to back ultrafiltration/HD - follow as per renal - assistance appreciated #DM hypoglycemia resolved continue sliding scale continue diabetic diet continue levemir and prandial insulin adjusting for hyperglycemia #Afib xarelto on hold, will switch to eliquis after procedure continue bisoprolol #acute diastolic chf resolving volume being managed with hd #leg wounds/pain seen by surgery no need for debridement continue wound care #Delirium multifactorial holding gabapentin, bentyl, and oxycodone (although hasnt received oxy) improved #DVT prophylaxis VS,Fishbone, I+O VS, Fishbone, I+O Laboratory Tests 07/03/19 05:26 Red Blood Count 3.72 L, Mean Corpuscular Volume 100.8 H, Mean Corpuscular Hemoglobin 27.2, Mean Corpuscular Hemoglobin Concent 26.9 L, Red Cell Distribution Width 28.2 H, Neutrophils (%) (Auto) 65.6, Lymphocytes (%) (Auto) 17.8 L, Monocytes (%) (Auto) 11.8 H, Eosinophils (%) (Auto) 2.3, Basophils (%) (Auto) 1.8 H, Neutrophils # (Auto) 2.9, Lymphocytes # (Auto) 0.8 L, Monocytes # (Auto) 0.5, Eosinophils # (Auto) 0.1, Basophils # (Auto) 0.1, Calcium Level 8.6 L Vital Signs Date Time Temp Pulse Resp B/P (MAP) Pulse Ox O2 Delivery O2 Flow Rate FiO2 07/03/19 10:00 97.1 70 19 109/53 (71) 89 07/01/19 16:12 2 I&O- Last 24 Hours up to 6 AM 07/03/19 06:00 Intake Total 1260 ml Output Total 2000 ml Balance -740 ml NIVIA GOMEZ MD Jul 03, 2019 16:14
[2019-07-03 18:00] VITALS: BP 136/59
[2019-07-03] MEDS: FLUTICASONE PROP 0.05% NASAL SPRAY 16 GM (FLONASE) SCH (18:33)
[2019-07-03 22:00] VITALS: BP 129/62
[2019-07-04 02:00] VITALS: BP 108/59
[2019-07-04 06:00] VITALS: BP 108/52
[2019-07-04] MEDS: CLINDAMYCIN 900 MG in APPROPRIATE DILUENT 1 EA IV SCH ×3 (06:07→21:56)
[2019-07-04] MEDS: ACETAMINOPHEN 500 MG TAB PO SCH ×3 (06:08→21:55)
[2019-07-04] MEDS: FERROUS SULFATE 325MG TAB PO SCH (06:08)
[2019-07-04] MEDS: PANTOPRAZOLE 40MG TAB (PROTONIX) PO SCH ×2 (06:08→21:53)
[2019-07-04] MEDS: SENOKOT S TAB PO SCH ×2 (06:09→21:00)
[2019-07-04] MEDS: BISOPROLOL FUMARATE 5 MG TAB PO SCH ×2 (06:10→21:54)
[2019-07-04] MEDS: NYSTATIN 100,000 UNITS/GM TOPICAL PWD 15 GM TOP SCH ×2 (06:13→21:55)
[2019-07-04 07:45] LABS: BASO # 0.1 10^3/uL (0.0-0.2); BASO % 1.7 % (0.0-1.0); EOS # 0.1 10^3/uL (0.0-0.50); EOS % 2.2 % (0.0-3.0); HEMATOCRIT 37.3 % (36.0-47.0); HEMOGLOBIN 10.2 g/dl (12.0-15.5); LYMPH # 0.9 10^3/uL (1.5-4.5); LYMPH % 17.4 % (24.0-44.0); MEAN CORPUSCULAR HEMOGLOBIN 27.6 pg (27.0-33.0); MEAN CORPUSCULAR HGB CONC 27.3 g/dl (32.0-36.5); MEAN CORPUSCULAR VOLUME 101.1 fl (80.0-96.0); MONO # 0.7 10^3/uL (0.0-0.8); MONO % 12.2 % (0.0-5.0); NEUTROPHILS # 3.5 10^3/uL (1.8-7.7); NEUTROPHILS % 65.9 % (36.0-66.0); PLATELET COUNT, AUTOMATED 106 10^3/uL (150-450); RED BLOOD COUNT 3.69 10^6/uL (4.00-5.40); WHITE BLOOD COUNT 5.3 10^3/uL (4.0-10.0)
[2019-07-04 07:58] LABS: CALCIUM LEVEL 9.2 MG/DL (8.8-10.2); CREATININE FOR GFR 2.62 MG/DL (0.55-1.30); GLOMERULAR FILTRATION RATE 18.9 (>39); POTASSIUM SERUM 3.6 MEQ/L (3.5-5.1)
[2019-07-04] MEDS: HumaLOG INSULIN (NovoLOG) PER UNIT SC SCH ×7 (08:16→21:00)
[2019-07-04] MEDS: LEVEMIR (INSULIN DETEMIR) 1 UNITS/0.01ML SC SCH (08:17)
[2019-07-04] MEDS ORDERED: HEPARIN 1,000 UNITS/ML 10ML VIAL (FOR RADIOLOGY& DIALYSIS ONLY) XX ONE (12:00)
[2019-07-04 14:00] VITALS: BP 112/55
--- NOTE | 2019-07-04 15:21 | IPN ---
DATE: 07/03/2019 SUBJECTIVE: The patient was seen and examined at the bedside this morning. She is afebrile, hemodynamically stable. She is complaining of some pain in the legs. She was dialyzed yesterday, 2 liters of fluid was removed yesterday. OBJECTIVE: Vital signs: Temperature is 97.2 degrees Fahrenheit, blood pressure 136/59, pulse is 77, respiratory of 19, saturating 98% on room air. Intake and output: There is no urine output recorded. Ultrafiltration with hemodialysis was 2 liters. Weight in the bed scale is not available. PHYSICAL EXAMINATION: GENERAL: The patient is awake, alert, oriented times three, morbidly obese, laying in bed in no apparent distress. HEAD AND NECK EXAM: Extraocular muscles intact. Pupils equally round and reactive to light. Mucous membranes are moist. Neck is supple. Right internal jugular ( IJ) tunneled hemodialysis catheter. CARDIOVASCULAR: S1, S2, 2+ edema of the bilateral lower extremities. RESPIRATORY: Chest is clear to auscultation bilaterally. Bilateral equal air entry. No rales or rhonchi. ABDOMEN: Soft, obese, positive bowel sounds, 2+ abdominal wall edema. MUSCULOSKELETAL: No clubbing or cyanosis. Pulses are 2+. Ulcers on the legs was noted. CENTRAL NERVOUS SYSTEM (CARE DIRECTOR): No focal deficit. Power is 5/5 in bilateral upper extremities. LAB REVIEW: CBC showed WBC of 4.4, hemoglobin 10.1, platelets are 95. BMP showed sodium 137, potassium 3.8, chloride 104, bicarb 23, BUN 32, creatinine is 2.1, calcium is 8.6. CURRENT INPATIENT MEDICATIONS. The patient's medications were all reviewed by me. There is no change in the medications today as compared with yesterday. ASSESSMENT/PLAN: 1. End-stage renal disease on hemodialysis. The patient was dialyzed yesterday. However, because of anasarca, I am going to do 3 hours of ultrafiltration and will try to remove 2 liters of fluid as tolerated by blood pressure. 2. Chronic diastolic congestive heart failure. The patient has significant volume overload because of renal failure. 2 liters of fluid was removed yesterday, 2 liters will be removed again today with ultrafiltration 3. ANEMIA IN END-STAGE RENAL DISEASE: Hemoglobin is acceptable. Continue current dose of Venofer 4. Bilateral lower extremity ulcers: The patient is currently on clindamycin. The rest of the management is as per primary team.
[2019-07-04] MEDS: FLUTICASONE PROP 0.05% NASAL SPRAY 16 GM (FLONASE) SCH (17:20)
[2019-07-04 22:00] VITALS: BP 114/65
[2019-07-05] MEDS: CLINDAMYCIN 900 MG in APPROPRIATE DILUENT 1 EA IV SCH ×3 (05:50→22:46)
[2019-07-05] MEDS: ACETAMINOPHEN 500 MG TAB PO SCH ×3 (05:52→22:46)
[2019-07-05 06:00] VITALS: BP 115/70
[2019-07-05 06:25] LABS: BASO # 0.1 10^3/uL (0.0-0.2); BASO % 1.5 % (0.0-1.0); EOS # 0.1 10^3/uL (0.0-0.50); EOS % 1.7 % (0.0-3.0); HEMATOCRIT 38.3 % (36.0-47.0); HEMOGLOBIN 10.5 g/dl (12.0-15.5); LYMPH # 0.9 10^3/uL (1.5-4.5); LYMPH % 13.9 % (24.0-44.0); MEAN CORPUSCULAR HEMOGLOBIN 27.9 pg (27.0-33.0); MEAN CORPUSCULAR HGB CONC 27.4 g/dl (32.0-36.5); MEAN CORPUSCULAR VOLUME 101.6 fl (80.0-96.0); MONO # 0.8 10^3/uL (0.0-0.8); MONO % 11.6 % (0.0-5.0); NEUTROPHILS # 4.6 10^3/uL (1.8-7.7); NEUTROPHILS % 70.5 % (36.0-66.0); RED BLOOD COUNT 3.77 10^6/uL (4.00-5.40); WHITE BLOOD COUNT 6.5 10^3/uL (4.0-10.0)
[2019-07-05 06:51] LABS: CALCIUM LEVEL 9.2 MG/DL (8.8-10.2); CREATININE FOR GFR 2.29 MG/DL (0.55-1.30); GLOMERULAR FILTRATION RATE 22.1 (>39); POTASSIUM SERUM 3.5 MEQ/L (3.5-5.1)
[2019-07-05 06:55] LABS: PLATELET COUNT, AUTOMATED 91 10^3/uL (150-450)
[2019-07-05] MEDS: HumaLOG INSULIN (NovoLOG) PER UNIT SC SCH ×7 (08:39→21:00)
[2019-07-05] MEDS: LEVEMIR (INSULIN DETEMIR) 1 UNITS/0.01ML SC SCH (08:40)
[2019-07-05] MEDS: FERROUS SULFATE 325MG TAB PO SCH (08:41)
[2019-07-05] MEDS: NYSTATIN 100,000 UNITS/GM TOPICAL PWD 15 GM TOP SCH (08:41)
[2019-07-05] MEDS: PANTOPRAZOLE 40MG TAB (PROTONIX) PO SCH ×2 (08:41→22:46)
[2019-07-05] MEDS: SENOKOT S TAB PO SCH ×2 (08:41→22:46)
[2019-07-05] MEDS: BISOPROLOL FUMARATE 5 MG TAB PO SCH ×3 (08:41→22:47)
--- NOTE | 2019-07-05 11:34 | IPNPDOC ---
Text Note Date of Service The patient was seen on 07/04/19. NOTE Subjective: Objective: General: NAD, generalized edema HEENT: NC/AT Lungs: CTA B/L, diminished breath sounds Heart: +S1S2, RRR, systolic murmur Abd: soft, NT, +BS A/P: 74f p/w worsening renal failure and acute chf requiring initiation of HD #ESRD pt with temporary catheter - will require back to back ultrafiltration/HD - follow as per renal - assistance appreciated #DM hypoglycemia resolved continue sliding scale continue diabetic diet continue levemir and prandial insulin adjusting for hyperglycemia #Afib xarelto on hold, will switch to eliquis after procedure continue bisoprolol #acute diastolic chf resolving volume being managed with hd #leg wounds/pain seen by surgery no need for debridement continue wound care #Delirium multifactorial holding gabapentin, bentyl, and oxycodone (although hasnt received oxy) improved #DVT prophylaxis VS,Fishbone, I+O VS, Fishbone, I+O Laboratory Tests 07/05/19 05:59 Red Blood Count 3.77 L, Mean Corpuscular Volume 101.6 H, Mean Corpuscular Hemoglobin 27.9, Mean Corpuscular Hemoglobin Concent 27.4 L, Red Cell Distribution Width 27.6 H, Neutrophils (%) (Auto) 70.5 H, Lymphocytes (%) (Auto) 13.9 L, Monocytes (%) (Auto) 11.6 H, Eosinophils (%) (Auto) 1.7, Basophils (%) (Auto) 1.5 H, Neutrophils # (Auto) 4.6, Lymphocytes # (Auto) 0.9 L, Monocytes # (Auto) 0.8, Eosinophils # (Auto) 0.1, Basophils # (Auto) 0.1, Calcium Level 9.2 Vital Signs Date Time Temp Pulse Resp B/P (MAP) Pulse Ox O2 Delivery O2 Flow Rate FiO2 07/05/19 08:41 69 111/69 07/05/19 06:00 98.0 17 96 07/01/19 16:12 2 I&O- Last 24 Hours up to 6 AM 07/05/19 06:00 Intake Total 390 ml Output Total 2000 ml Balance -1610 ml NIVIA GOMEZ MD Jul 05, 2019 11:34
--- NOTE | 2019-07-05 11:36 | IPNPDOC ---
Text Note Date of Service The patient was seen on 07/05/19. NOTE Subjective: Patient seen and examined at bedside. No acute overnight events re ported. No new medical complaints. Objective: General: NAD, generalized edema HEENT: NC/AT, edentulous Chest: CTA B/L, diminished breath sounds, right chest port in place Heart: +S1S2, RRR, systolic murmur Abd: soft, NT, +BS A/P: 74f p/w worsening renal failure and acute chf requiring initiation of HD #ESRD - pt with temporary catheter - follow as per renal - assistance appreciated #DM hypoglycemia resolved continue sliding scale continue diabetic diet continue levemir and prandial insulin adjusting for hyperglycemia #Afib - a/c on hold continue bisoprolol #acute diastolic chf - resolved volume being managed with hd #leg wounds/pain seen by surgery no need for debridement continue wound care - cultures pending #thrombocytopenia - heparin sloan pending #Delirium multifactorial holding gabapentin, bentyl, and oxycodone improved #DVT prophylaxis - mechanical VS,Fishbone, I+O VS, Fishbone, I+O Laboratory Tests 07/05/19 05:59 Red Blood Count 3.77 L, Mean Corpuscular Volume 101.6 H, Mean Corpuscular Hemoglobin 27.9, Mean Corpuscular Hemoglobin Concent 27.4 L, Red Cell Distribution Width 27.6 H, Neutrophils (%) (Auto) 70.5 H, Lymphocytes (%) (Auto) 13.9 L, Monocytes (%) (Auto) 11.6 H, Eosinophils (%) (Auto) 1.7, Basophils (%) (Auto) 1.5 H, Neutrophils # (Auto) 4.6, Lymphocytes # (Auto) 0.9 L, Monocytes # (Auto) 0.8, Eosinophils # (Auto) 0.1, Basophils # (Auto) 0.1, Calcium Level 9.2 Vital Signs Date Time Temp Pulse Resp B/P (MAP) Pulse Ox O2 Delivery O2 Flow Rate FiO2 07/05/19 08:41 69 111/69 07/05/19 06:00 98.0 17 96 07/01/19 16:12 2 I&O- Last 24 Hours up to 6 AM0 07/05/19 06:00 Intake Total 390 ml Output Total 2000 ml Balance -1610 ml NIVIA GOMEZ MD Jul 05, 2019 11:36
[2019-07-05 14:00] VITALS: BP 114/52
[2019-07-05] MEDS: FLUTICASONE PROP 0.05% NASAL SPRAY 16 GM (FLONASE) SCH (18:53)
--- NOTE | 2019-07-05 19:25 | IPN ---
DATE: 07/04/2019 SUBJECTIVE: The patient was seen and examined at the bedside today morning during hemodialysis procedure. She was tolerating the hemodialysis procedure well. She also got an extra session of ultrafiltration done yesterday. The patient is sleepy and drowsy during dialysis. However, her fingerstick blood glucose was checked and it was within the normal range. OBJECTIVE: VITAL SIGNS: Temperature is 97.1 degrees Fahrenheit, blood pressure 108/52, pulse is 78, respiratory of 18, saturating 92% on room air. INTAKE AND OUTPUT: There is no urine output recorded. Weight in the bed scale is not available. PHYSICAL EXAMINATION: GENERAL: The patient is drowsy and sleepy, getting hemodialysis done, otherwise she follows commands, in no apparent distress. HEAD AND NECK: Pupils are equally round and reactive to light. Mucous membranes are moist. Neck is supple. She has a right internal jugular (IJ) tunneled hemodialysis catheter which is being used for dialysis. CARDIOVASCULAR: S1, S2, regular rate, 2+ edema of the bilateral lower extremities. RESPIRATORY: Chest is clear to auscultation bilaterally. Bilateral equal air entry. No rales or rhonchi. ABDOMEN: Soft, obese, positive bowel sounds, 1+ abdominal wall edema was noted. MUSCULOSKELETAL: No clubbing or cyanosis. Pulses are 2+. Ulcers on the legs were noted. 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 LABORATORY REVIEW: CBC showed a WBC of 5.3, hemoglobin 10.2, platelets are 106. BMP showed sodium 140, potassium 3.6, chloride 106, bicarbonate 27, BUN 42, creatinine is 2.6. CURRENT INPATIENT MEDICATIONS: The patient's medications were all reviewed by me. She is currently on clindamycin. No other change in the medications today as compared with yesterday. ASSESSMENT AND PLAN: 1. End-stage renal disease, on hemodialysis. The patient got ultrafiltration done yesterday. She is being dialyzed today. I will try to remove further two liters of fluid as tolerated by her blood pressure. 2. Chronic diastolic congestive heart failure. Volume status was significantly decompensated. The patient has generalized anasarca. She is getting [id number] ultrafiltration and hemodialysis for the last three days. Continue the fluid restriction. 3. Bilateral lower extremity ulcers. The patient is currently on clindamycin.
[2019-07-05 22:00] VITALS: BP 104/56
[2019-07-06] MEDS: NYSTATIN 100,000 UNITS/GM TOPICAL PWD 15 GM TOP SCH ×3 (01:44→22:26)
[2019-07-06 06:00] VITALS: BP 124/62
[2019-07-06 06:47] LABS: BASO # 0.1 10^3/uL (0.0-0.2); BASO % 1.4 % (0.0-1.0); EOS # 0.2 10^3/uL (0.0-0.50); EOS % 2.4 % (0.0-3.0); HEMATOCRIT 38.1 % (36.0-47.0); HEMOGLOBIN 10.3 g/dl (12.0-15.5); LYMPH # 0.9 10^3/uL (1.5-4.5); LYMPH % 12.7 % (24.0-44.0); MEAN CORPUSCULAR HEMOGLOBIN 27.1 pg (27.0-33.0); MEAN CORPUSCULAR VOLUME 100.3 fl (80.0-96.0); MONO # 0.7 10^3/uL (0.0-0.8); MONO % 10.2 % (0.0-5.0); NEUTROPHILS % 72.6 % (36.0-66.0); PLATELET COUNT, AUTOMATED 109 10^3/uL (150-450); WHITE BLOOD COUNT 6.9 10^3/uL (4.0-10.0)
[2019-07-06 07:04] LABS: CREATININE FOR GFR 2.76 MG/DL (0.55-1.30); GLOMERULAR FILTRATION RATE 17.8 (>39); POTASSIUM SERUM 3.5 MEQ/L (3.5-5.1)
[2019-07-06 07:05] VITALS: BP 83/54
[2019-07-06] MEDS: FERROUS SULFATE 325MG TAB PO SCH (07:07)
[2019-07-06] MEDS: CLINDAMYCIN 900 MG in APPROPRIATE DILUENT 1 EA IV SCH ×3 (07:07→22:25)
[2019-07-06] MEDS: ACETAMINOPHEN 500 MG TAB PO SCH ×3 (07:08→22:26)
[2019-07-06] MEDS: SENOKOT S TAB PO SCH ×2 (07:09→21:00)
[2019-07-06] MEDS: PANTOPRAZOLE 40MG TAB (PROTONIX) PO SCH ×2 (07:09→22:27)
[2019-07-06 07:24] VITALS: BP 90/55
[2019-07-06] MEDS: BISOPROLOL FUMARATE 5 MG TAB PO SCH ×2 (07:35→21:00)
[2019-07-06] MEDS: HumaLOG INSULIN (NovoLOG) PER UNIT SC SCH ×7 (08:17→21:00)
[2019-07-06] MEDS: LEVEMIR (INSULIN DETEMIR) 1 UNITS/0.01ML SC SCH (08:18)
--- NOTE | 2019-07-06 10:01 | IPN ---
DATE: 07/05/2019 SUBJECTIVE The patient was seen and examined at the bedside today morning. She was dialyzed yesterday. She tolerated the procedure well. 2 liter of fluid was removed. She denies any active complaints at this time. OBJECTIVE Vital signs: Temperature is 98 degrees Fahrenheit. Blood pressure 115/70, pulse is 89, respiratory rate of 17, saturating 96% on room air. Intake and output: Ultrafiltration with hemodialysis was 2 liters yesterday. Weight in the bed scale is not available. PHYSICAL EXAMINATION General: The patient is awake, alert, oriented times three, laying in bed, morbidly obese. Head and neck exam: Extraocular muscles intact. Pupils equally round and reactive to light. Mucous membranes are moist. Neck is supple. She has a right IJ tunneled hemodialysis catheter. Cardiovascular: S1, S2, regular rate 1+ edema of the bilateral lower extremities. Respiratory: Chest is clear to auscultation bilaterally. Bilateral equal air entry. No rales or rhonchi. Abdomen: Soft, obese, positive bowel sounds. 1+ edema of the abdominal wall. Musculoskeletal: No clubbing or cyanosis. Pulses are 2+. She has ulcers on the leg which are healing. BOARD STACKER: No focal deficit. Power is power in bilateral upper extremities. LAB REVIEW CBC showed a WBC 6.5, hemoglobin 10.5, platelets are 91. BMP showed sodium 139, potassium 3.5, chloride 105, bicarb 27, BUN 26, creatinine is 2.2. Microbiology: Gram stain of the wound from the groin showed a few gram-negative rods and few gram positive cocci. CURRENT INPATIENT MEDICATIONS The patient's medications were all reviewed by me. There is no change in the medications today as compared with yesterday. ASSESSMENT/PLAN 1. End-stage renal disease on hemodialysis. The patient was dialyzed yesterday. She has been dialyzed and ultrafiltrated 3 days in a row. Next dialysis session will be tomorrow morning. 2. Chronic diastolic congestive heart failure. Volume status is improving with sioq-so-lres fluid removal for 3 days. I will try to remove at least 2.5 to 3 mL of fluid tomorrow morning as well. 3. Bilateral lower extremity ulcers. Continue clindamycin. The rest of the management is as per wound care. 4. Anemia and end-stage renal disease. Hemoglobin level is optimal. She is getting IV Venofer with dialysis. No need of Aranesp administration.
[2019-07-06] MEDS ORDERED: HEPARIN 1,000 UNITS/ML 10ML VIAL (FOR RADIOLOGY& DIALYSIS ONLY) XX ONE (12:15)
--- NOTE | 2019-07-06 13:28 | IPNPDOC ---
Text Note Date of Service The patient was seen on 07/06/19. NOTE Subjective: Patient seen and examined at bedside. No acute overnight events r eported. No new medical complaints. Objective: General: NAD, generalized edema HEENT: NC/AT, edentulous Chest: CTA B/L, diminished breath sounds, right chest port in place Heart: +S1S2, RRR, systolic murmur Abd: soft, NT, +BS Ext: large right groin wound with drainage A/P: 74f p/w worsening renal failure and acute CHF requiring initiation of HD #ESRD - pt with temporary catheter - follow as per renal - assistance appreciated - HD for past 3 days, another session planned today #DM hypoglycemia resolved continue sliding scale continue diabetic diet continue levemir and prandial insulin adjusting for hyperglycemia #Afib - a/c on hold continue bisoprolol #acute diastolic chf - resolved volume being managed with hd #leg wounds/pain seen by surgery no need for debridement continue wound care - clindamycin - cultures pending #thrombocytopenia - improving - heparin sloan pending #Delirium - resolved - holding gabapentin, bentyl, and oxycodone #DVT prophylaxis - mechanical VS,Fishbone, I+O VS, Fishbone, I+O Laboratory Tests 07/06/19 06:18 Red Blood Count 3.80 L, Mean Corpuscular Volume 100.3 H, Mean Corpuscular Hemoglobin 27.1, Mean Corpuscular Hemoglobin Concent 27.0 L, Red Cell Distribution Width 27.4 H, Neutrophils (%) (Auto) 72.6 H, Lymphocytes (%) (Auto) 12.7 L, Monocytes (%) (Auto) 10.2 H, Eosinophils (%) (Auto) 2.4, Basophils (%) (Auto) 1.4 H, Neutrophils # (Auto) 5.0, Lymphocytes # (Auto) 0.9 L, Monocytes # (Auto) 0.7, Eosinophils # (Auto) 0.2, Basophils # (Auto) 0.1, Calcium Level 9.0 Vital Signs Date Time Temp Pulse Resp B/P (MAP) Pulse Ox O2 Delivery O2 Flow Rate FiO2 07/06/19 07:24 81 90/55 (67) 07/06/19 06:00 98.2 19 96 07/01/19 16:12 2 I&O- Last 24 Hours up to 6 AM 07/06/19 06:00 Intake Total 1190 ml Balance 1190 ml NIVIA GOMEZ MD Jul 06, 2019 13:28
[2019-07-06 14:00] VITALS: BP 92/55
[2019-07-06] MEDS: FLUTICASONE PROP 0.05% NASAL SPRAY 16 GM (FLONASE) SCH (18:25)
[2019-07-06 22:00] VITALS: BP 101/58
[2019-07-06 22:23] VITALS: BP 101/55
[2019-07-07 06:00] VITALS: BP 104/55
[2019-07-07] MEDS: ACETAMINOPHEN 500 MG TAB PO SCH ×3 (06:20→22:39)
[2019-07-07] MEDS: CLINDAMYCIN 900 MG in APPROPRIATE DILUENT 1 EA IV SCH ×3 (06:21→22:44)
[2019-07-07 08:11] LABS: HEMATOCRIT 38.6 % (36.0-47.0); HEMOGLOBIN 10.6 g/dl (12.0-15.5); MEAN CORPUSCULAR HEMOGLOBIN 28.2 pg (27.0-33.0); MEAN CORPUSCULAR HGB CONC 27.5 g/dl (32.0-36.5); MEAN CORPUSCULAR VOLUME 102.7 fl (80.0-96.0); PLATELET COUNT, AUTOMATED 115 10^3/uL (150-450); RED BLOOD COUNT 3.76 10^6/uL (4.00-5.40); WHITE BLOOD COUNT 5.8 10^3/uL (4.0-10.0)
[2019-07-07 08:35] LABS: CALCIUM LEVEL 8.9 MG/DL (8.8-10.2); CREATININE FOR GFR 2.12 MG/DL (0.55-1.30); GLOMERULAR FILTRATION RATE 24.1 (>39); POTASSIUM SERUM 3.8 MEQ/L (3.5-5.1)
[2019-07-07] MEDS: FERROUS SULFATE 325MG TAB PO SCH (08:51)
[2019-07-07] MEDS: SENOKOT S TAB PO SCH ×3 (08:51→22:42)
[2019-07-07] MEDS: NYSTATIN 100,000 UNITS/GM TOPICAL PWD 15 GM TOP SCH ×2 (08:51→22:44)
[2019-07-07] MEDS: PANTOPRAZOLE 40MG TAB (PROTONIX) PO SCH ×2 (08:51→22:43)
[2019-07-07] MEDS: HumaLOG INSULIN (NovoLOG) PER UNIT SC SCH ×7 (08:52→22:44)
[2019-07-07] MEDS: LEVEMIR (INSULIN DETEMIR) 1 UNITS/0.01ML SC SCH (08:53)
--- NOTE | 2019-07-07 10:33 | IPN ---
DATE: 07/06/2019 Mrs. Painter is seen this morning on her bedside during hemodialysis. She is tolerating her dialysis treatment very well. She has a relatively low blood pressure with systolic blood pressure 83-90 mmHg this morning. She was admitted with generalized edema and renal failure and has been dialysis dependent. She has bilateral lower extremity wounds which are being treated with oral clindamycin and wound care. She has been afebrile. The patient also had severe anemia on admission which improved after transfusion and now she is receiving Aranesp and Venofer with dialysis. PHYSICAL EXAMINATION: Temperature 98.2 degrees Fahrenheit, heart rate 80 per minute and respiratory rate 18 per minute. Blood pressure 110/60 mmHg and oxygen saturation 96%. Head is atraumatic. Neck supple and JVD difficult to be assessed. Dialysis catheter is intact in right internal jugular vein. Heart sounds regular and lungs with diminished breath sounds. Abdomen obese, soft and nontender. Bowel sounds normal. Extremities without any cyanosis or clubbing. Bilateral lower extremity wounds are covered with dressing. Today's labs show WBC count 6.9, hemoglobin 10.3 and hematocrit 38.1. Platelets 109. Sodium 138, potassium 3.5, CO2 of 25, BUN 38 and creatinine 2.76. PROBLEMS: 1. End-stage renal disease. Patient is dialysis dependent and is being dialyzed today. She is tolerating dialysis treatment well. 2. Hypokalemia. This is related to dialysis and decreased oral intake. I will change her diet to regular diet which will help to prevent hypokalemia. 3. Hypotension. Her blood pressure has been persistently low. I have discussed with Dr. Enamorado and requested to stop her bisoprolol and consider putting her on low-dose digoxin of 125 mcg three times a week for control of her atrial fibrillation. Once her blood pressure improves then we will be able to remove fluid with dialysis more aggressively which will help with improvement in her volume status. 4. Atrial fibrillation. Ventricular rate is reasonably well-controlled at present with bisoprolol however, blood pressure has been consistently low. I feel that her ventricular rate should be corrected and controlled with low-dose digoxin and stop the beta constance. We hope that will not affect her cardiac status and we will be able to remove fluid more aggressively and correct her volume status.
[2019-07-07 14:00] VITALS: BP 133/57
[2019-07-07] MEDS: FLUTICASONE PROP 0.05% NASAL SPRAY 16 GM (FLONASE) SCH (18:26)
[2019-07-07 22:00] VITALS: BP 112/74
[2019-07-07 22:41] VITALS: BP 131/60
[2019-07-08] MEDS: BISOPROLOL FUMARATE 5 MG TAB PO SCH ×2 (00:08→21:26)
[2019-07-08 06:00] VITALS: BP 121/70
[2019-07-08] MEDS: ACETAMINOPHEN 500 MG TAB PO SCH ×3 (06:19→21:25)
[2019-07-08] MEDS: CLINDAMYCIN 900 MG in APPROPRIATE DILUENT 1 EA IV SCH (06:20)
[2019-07-08 06:31] LABS: HEMATOCRIT 39.2 % (36.0-47.0); HEMOGLOBIN 10.8 g/dl (12.0-15.5); MEAN CORPUSCULAR HEMOGLOBIN 27.6 pg (27.0-33.0); MEAN CORPUSCULAR HGB CONC 27.6 g/dl (32.0-36.5); PLATELET COUNT, AUTOMATED 153 10^3/uL (150-450); RED BLOOD COUNT 3.92 10^6/uL (4.00-5.40); WHITE BLOOD COUNT 5.1 10^3/uL (4.0-10.0)
[2019-07-08 06:59] LABS: CALCIUM LEVEL 9.5 MG/DL (8.8-10.2); CREATININE FOR GFR 2.5 MG/DL (0.55-1.30); GLOMERULAR FILTRATION RATE 19.9 (>39); POTASSIUM SERUM 3.8 MEQ/L (3.5-5.1)
[2019-07-08] MEDS: HumaLOG INSULIN (NovoLOG) PER UNIT SC SCH ×7 (07:30→21:27)
[2019-07-08] MEDS: SENOKOT S TAB PO SCH ×2 (08:36→21:26)
[2019-07-08] MEDS: FERROUS SULFATE 325MG TAB PO SCH (08:44)
[2019-07-08] MEDS: LEVEMIR (INSULIN DETEMIR) 1 UNITS/0.01ML SC SCH (08:44)
[2019-07-08] MEDS: PANTOPRAZOLE 40MG TAB (PROTONIX) PO SCH ×2 (08:44→21:25)
[2019-07-08] MEDS: NYSTATIN 100,000 UNITS/GM TOPICAL PWD 15 GM TOP SCH ×2 (08:45→21:27)
--- NOTE | 2019-07-08 10:33 | IPNPDOC ---
Text Note Date of Service The patient was seen on 07/07/19. NOTE Subjective: Patient seen and examined at bedside. No acute overnight events r eported. No new medical complaints. Objective: General: NAD, generalized edema HEENT: NC/AT, edentulous Chest: CTA B/L, diminished breath sounds, right chest port in place Heart: +S1S2, RRR, systolic murmur Abd: soft, NT, +BS Ext: large right groin wound with drainage A/P: 74f p/w worsening renal failure and acute CHF requiring initiation of HD #ESRD - pt with temporary catheter - follow as per renal - assistance appreciated #DM hypoglycemia resolved continue sliding scale continue diabetic diet continue levemir and prandial insulin adjusting for hyperglycemia #Afib - a/c on hold continue bisoprolol #acute diastolic chf - resolved volume being managed with hd #wounds - cultures pending - continue wound care #thrombocytopenia - improving - heparin sloan positive - avoid heparin products #Delirium - resolved - holding gabapentin, bentyl, and oxycodone #DVT prophylaxis - mechanical VS,Fishbone, I+O VS, Fishbone, I+O Laboratory Tests 07/08/19 05:58 Red Blood Count 3.92 L, Mean Corpuscular Volume 100.0 H, Mean Corpuscular Hemoglobin 27.6, Mean Corpuscular Hemoglobin Concent 27.6 L, Red Cell Distribution Width 27.0 H, Calcium Level 9.5 Vital Signs Date Time Temp Pulse Resp B/P (MAP) Pulse Ox O2 Delivery O2 Flow Rate FiO2 07/08/19 06:00 98.8 80 17 121/70 (87) 98 I&O- Last 24 Hours up to 6 AM 07/08/19 06:00 Intake Total 950 ml Balance 950 ml NIVIA GOMEZ MD Jul 08, 2019 10:33
--- NOTE | 2019-07-08 11:41 | IPNPDOC ---
Text Note Date of Service The patient was seen on 07/08/19. NOTE Subjective: Patient seen and examined at bedside. No acute overnight events r eported. No new medical complaints. Objective: General: NAD, generalized edema HEENT: NC/AT, edentulous Chest: CTA B/L, diminished breath sounds, right chest port in place Heart: +S1S2, RRR, systolic murmur Abd: soft, NT, +BS Ext: large right groin wound with drainage A/P: 74f p/w worsening renal failure and acute CHF requiring initiation of HD #ESRD - follow as per renal - assistance appreciated #DM hypoglycemia resolved continue sliding scale continue diabetic diet continue levemir and prandial insulin adjusting for hyperglycemia #Afib - xarelto was on hold for permacath continue bisoprolol #acute diastolic chf - resolved volume being managed with hd #wounds - cultures noted - d/w nephrology regarding renal dosing - meropenem? - continue wound care #thrombocytopenia - resolved - heparin sloan positive - avoid heparin products #Delirium - resolved - holding gabapentin, bentyl, and oxycodone #DVT prophylaxis - mechanical VS,Fishbone, I+O VS, Fishbone, I+O Laboratory Tests 07/08/19 05:58 Red Blood Count 3.92 L, Mean Corpuscular Volume 100.0 H, Mean Corpuscular Hemoglobin 27.6, Mean Corpuscular Hemoglobin Concent 27.6 L, Red Cell Distribution Width 27.0 H, Calcium Level 9.5 Vital Signs Date Time Temp Pulse Resp B/P (MAP) Pulse Ox O2 Delivery O2 Flow Rate FiO2 07/08/19 06:00 98.8 80 17 121/70 (87) 98 I&O- Last 24 Hours up to 6 AM 07/08/19 06:00 Intake Total 950 ml Balance 950 ml NIVIA GOMEZ MD Jul 08, 2019 11:41
[2019-07-08] MEDS ORDERED: MEROPENEM INJ 1 GM in APPROPRIATE DILUENT 1 EA IV ONE (13:15)
[2019-07-08 14:00] VITALS: BP 110/55
[2019-07-08] MEDS: FLUTICASONE PROP 0.05% NASAL SPRAY 16 GM (FLONASE) SCH (17:30)
[2019-07-08 22:00] VITALS: BP 126/72
--- NOTE | 2019-07-09 00:21 | IPN ---
DATE: 07/08/2019 Mrs. Painter is seen this morning on her bedside. Nursing staff reported that she has developed a rash on her lower abdomen, right thigh and her buttock area. Nursing staff did show me the rash after turning her to the side. She does seem to have shingles on her right buttock and thigh, lower abdomen on the right side. She has wounds on her both lower legs also, which are covered with dressing. The patient was last dialyzed on Monday and remains dialysis dependent. Her bisoprolol dose has been cut down to 5 mg once a day due to recurrent hypotension. Today she denies any dyspnea, chest pain, fever, chills, nausea or vomiting. PHYSICAL EXAMINATION: Temperature 98.8 degrees Fahrenheit, heart rate 80 per minute and respiratory rate 17 per minute. Blood pressure 121/70 mmHg and oxygen saturation 98% on room air. Head is atraumatic. Neck is supple and jugular venous distention (JVD) is difficult to be assessed. Internal jugular vein catheter is present in right side. Heart sounds are irregular in rhythm. Lungs with diminished breath sounds at bases. Abdomen: Obese, soft and nontender and bowel sounds are present. Extremities: Have no cyanosis or clubbing. Skin: Rash on the right side related to shingles on right lower abdomen, the right hip area and buttock. Lower leg wounds are covered with dressings. Neurologically, she is awake and at her baseline mentation. Today's labs show WBC count 5.1, hemoglobin 10.8 and hematocrit 39.2. Sodium 140, potassium 3.8, CO2 of 27, BUN 34 and creatinine 2.5. Glucose 171 and calcium 9.5. Wound culture did grow Pseudomonas and Proteus. PROBLEM #1: End-stage renal disease. The patient is currently dialysis dependent and has been dialyzed on Monday, and Monday schedule. Her next dialysis will be scheduled for tomorrow. PROBLEM #2: Volume overload and generalized anasarca. Her edema is gradually improving. She did have low blood pressure due to which her bisoprolol dose was cut down to 5 mg daily, and we will try to remove fluid more aggressively. If her blood pressure remains low, then we will consider to stop her bisoprolol completely and switch her to digoxin for rate control of her atrial fibrillation. PROBLEM #3: Anemia. Her anemia is stable and improved. No intervention is needed other than continued dose of Aranesp. PROBLEM #4: Skin rash and infection. She seems to have shingles with secondary bacterial infection. I have discussed with Dr. Enamorado, and we decided to treat her with meropenem as both organisms are sensitive to meropenem. She will receive a dose every 24 hours.
[2019-07-09] MEDS: ACETAMINOPHEN 500 MG TAB PO SCH ×3 (05:29→21:39)
[2019-07-09] MEDS: FERROUS SULFATE 325MG TAB PO SCH (05:29)
[2019-07-09] MEDS: SENOKOT S TAB PO SCH ×2 (05:30→21:39)
[2019-07-09] MEDS: NYSTATIN 100,000 UNITS/GM TOPICAL PWD 15 GM TOP SCH ×2 (05:30→21:40)
[2019-07-09] MEDS: PANTOPRAZOLE 40MG TAB (PROTONIX) PO SCH ×2 (05:30→21:39)
[2019-07-09 06:00] VITALS: BP 129/74
[2019-07-09] MEDS: LEVEMIR (INSULIN DETEMIR) 1 UNITS/0.01ML SC SCH (08:24)
[2019-07-09] MEDS: HumaLOG INSULIN (NovoLOG) PER UNIT SC SCH ×7 (08:24→21:00)
[2019-07-09] MEDS ORDERED: HEPARIN 1,000 UNITS/ML 10ML VIAL (FOR RADIOLOGY& DIALYSIS ONLY) XX ONE (11:45)
[2019-07-09 14:00] VITALS: BP 102/49
[2019-07-09] MEDS: FLUTICASONE PROP 0.05% NASAL SPRAY 16 GM (FLONASE) SCH (18:05)
[2019-07-09] MEDS ORDERED: KCL 20MEQ in NS 1000ML 1,000 ML IV SCH (20:00)
--- NOTE | 2019-07-09 20:09 | IPNPDOC ---
Text Note Date of Service The patient was seen on 07/09/19. NOTE Subjective: Patient seen and examined at bedside. No acute overnight events reported. She c/o itchiness over right groin area. Pt had dialysis today. She denies fever, chest pain, SOB chills, n/v, diarrhea. Objective: General: NAD, generalized edema HEENT: NC/AT, PERRLA, EOMI Chest: CTA B/L, diminished breath sounds, right chest port in place Heart: +S1S2, RRR, systolic murmur Abd: soft, NT, +BS Ext: large right groin wound with drainage and rash extended to right buttock area A/P: 74f p/w worsening renal failure and acute CHF requiring initiation of HD #ESRD - follow as per renal - continue dialysis #DM Glucose level is under control continue sliding scale continue diabetic diet continue levemir and prandial insulin adjusting for hyperglycemia #Afib - xarelto was on hold for now #acute diastolic chf - resolved volume being managed with hd #wounds - cultures Pseudomonas Aeruginosa - continue meropenem - will repeat Bx -Appreciate/ agree with ID rec - continue wound care #thrombocytopenia - resolved #Delirium - resolved - holding gabapentin, bentyl, and oxycodone #DVT prophylaxis - mechanical VS,Fishbone, I+O VS, Fishbone, I+O Vital Signs Date Time Temp Pulse Resp B/P (MAP) Pulse Ox O2 Delivery O2 Flow Rate FiO2 07/09/19 14:00 97.4 89 18 102/49 (66) 91 07/09/19 06:00 98.3 61 16 129/74 (92) 98 07/08/19 22:00 98.6 63 17 126/72 (90) 98 07/08/19 21:26 63 126/72 Intake & Output 07/09/19 06:00 Intake Total 1370 ml Output Total 0 ml Balance 1370 ml Laboratory Tests 07/09/19 06:06: Bedside Glucose (Misc Panel) 211H 07/09/19 13:09: Bedside Glucose (Misc Panel) 153H 07/09/19 17:03: Bedside Glucose (Misc Panel) 116H Microbiology 07/05/19 Gram Stain - Final, Complete 07/05/19 Wound Culture - Final, Complete Pseudomonas Aeruginosa Proteus Mirabilis SHARYN FERREIRA DO Jul 09, 2019 20:09
[2019-07-09] MEDS: BISOPROLOL FUMARATE 5 MG TAB PO SCH (21:39)
[2019-07-09 22:00] VITALS: BP 120/61
[2019-07-10] MEDS: MEROPENEM INJ 500 MG in APPROPRIATE DILUENT 1 EA IV SCH ×2 (01:47→14:25)
[2019-07-10] MEDS: ACETAMINOPHEN 500 MG TAB PO SCH ×3 (05:41→21:26)
[2019-07-10 05:59] LABS: HEMATOCRIT 40.3 % (36.0-47.0); HEMOGLOBIN 11.1 g/dl (12.0-15.5); MEAN CORPUSCULAR HEMOGLOBIN 28.3 pg (27.0-33.0); MEAN CORPUSCULAR HGB CONC 27.5 g/dl (32.0-36.5); MEAN CORPUSCULAR VOLUME 102.8 fl (80.0-96.0); PLATELET COUNT, AUTOMATED 181 10^3/uL (150-450); RED BLOOD COUNT 3.92 10^6/uL (4.00-5.40); WHITE BLOOD COUNT 4.4 10^3/uL (4.0-10.0)
[2019-07-10 06:00] VITALS: BP 144/67
[2019-07-10 06:12] LABS: CALCIUM LEVEL 9.4 MG/DL (8.8-10.2); CREATININE FOR GFR 1.48 MG/DL (0.55-1.30); GLOMERULAR FILTRATION RATE 36.5 (>39); MAGNESIUM LEVEL 2.1 MG/DL (1.8-2.4); POTASSIUM SERUM 3.9 MEQ/L (3.5-5.1)
[2019-07-10] MEDS: SENOKOT S TAB PO SCH ×2 (08:28→21:00)
[2019-07-10] MEDS: HumaLOG INSULIN (NovoLOG) PER UNIT SC SCH ×7 (08:42→21:00)
[2019-07-10] MEDS: FERROUS SULFATE 325MG TAB PO SCH (08:43)
[2019-07-10] MEDS: PANTOPRAZOLE 40MG TAB (PROTONIX) PO SCH ×2 (08:43→21:25)
[2019-07-10] MEDS: LEVEMIR (INSULIN DETEMIR) 1 UNITS/0.01ML SC SCH (08:44)
[2019-07-10] MEDS: NYSTATIN 100,000 UNITS/GM TOPICAL PWD 15 GM TOP SCH ×2 (08:44→21:26)
[2019-07-10 14:00] VITALS: BP 118/54
[2019-07-10] MEDS: FLUTICASONE PROP 0.05% NASAL SPRAY 16 GM (FLONASE) SCH ×2 (18:00→18:56)
--- NOTE | 2019-07-10 18:58 | IPNPDOC ---
Text Note Date of Service The patient was seen on 07/10/19. NOTE Subjective: Patient seen and examined at bedside. No acute overnight events reported. She c/o some itchiness over right groin area. She states that pruritus is better today . She denies fever, chest pain, SOB chills, n/v, diarrhea. Objective: General: NAD, generalized edema HEENT: NC/AT, PERRLA, EOMI Chest: CTA B/L, diminished breath sounds Heart: +S1S2, RRR, systolic murmur Abd: soft, NT, +BS Ext: large right groin wound with drainage and rash extended to right buttock area A/P: 74f p/w worsening renal failure and acute CHF requiring initiation of HD. Also patient was found to have a right inguinal rash to the right buttock area. #ESRD - follow as per renal - continue dialysis #DM Glucose level is under control continue sliding scale continue diabetic diet continue levemir and prandial insulin #Afib - xarelto was on hold for now #acute diastolic chf - resolved. volume being managed with hd #wounds - cultures Pseudomonas Aeruginosa - continue meropenem - will repeat Bx -Appreciate/ agree with ID rec - continue wound care #thrombocytopenia - resolved #Delirium - resolved - holding gabapentin, bentyl, and oxycodone #DVT prophylaxis - mechanical VS,Fishbone, I+O VS, Fishbone, I+O Laboratory Tests 07/10/19 05:37 Red Blood Count 3.92 L, Mean Corpuscular Volume 102.8 H, Mean Corpuscular Hemoglobin 28.3, Mean Corpuscular Hemoglobin Concent 27.5 L, Red Cell Distribution Width 25.4 H, Calcium Level 9.4 Vital Signs Date Time Temp Pulse Resp B/P (MAP) Pulse Ox O2 Delivery O2 Flow Rate FiO2 07/10/19 14:00 97.9 89 20 118/54 (75 95 I&O- Last 24 Hours up to 6 AM 07/10/19 06:00 Intake Total 236 ml Output Total 2000 ml Balance -1764 ml SHARYN FERREIRA DO Jul 10, 2019 18:58
--- NOTE | 2019-07-10 20:20 | IPN ---
DATE: 07/10/2019 Mrs. Painter is seen this morning on her bedside. She was dialyzed yesterday and tolerated her dialysis well. She denies any nausea, vomiting, fever, chills, dyspnea, or chest pain. PHYSICAL EXAMINATION: Temperature 97.7 degrees Fahrenheit, heart rate 88 per minute, respiratory rate 18 per minute, blood pressure 144/67 mm of mercury, and oxygen saturation 94%. Head is atraumatic. Neck is supple and without jugular venous distention (JVD) or thyroid enlargement. Dialysis catheter in right internal jugular vein is present. Heart sounds are irregular in rhythm. Lungs with diminished breath sounds. Abdomen: Obese, soft and nontender, and bowel sounds are present. Extremities without any cyanosis or clubbing. Neurologically, she is awake, alert, and at her baseline mentation. Today's labs show WBC count 4.4, hemoglobin 11.1, hematocrit 40.3, platelets 181. Sodium 140, potassium 3.9, CO2 of 27, BUN 30, and creatinine 1.48. Glucose 162 and calcium 9.4. PROBLEMS: 1. End-stage renal disease. The patient has been dialyzed three times a week. She was dialyzed yesterday and will schedule her next dialysis for tomorrow. 2. Congestive heart failure/hypervolemia. She had significantly decompensated volume status on admission. With dialysis and fluid removal, her peripheral edema has improved significantly. We will continue to remove about 2-3 liters of fluid with each dialysis as tolerated. 3. Anemia. Her anemia has improved significantly since admission. She did receive transfusion earlier, and now she is receiving Aranesp and Venofer with dialysis. 4. Skin rash. She seems to have herpes zoster rash on her right lower abdomen and buttock area. Hospitalist service is waiting for infectious disease consult. Unfortunately, the patient cannot be discharged back to snf until this rash improves.
[2019-07-10] MEDS: BISOPROLOL FUMARATE 5 MG TAB PO SCH (21:25)
[2019-07-10] MEDS: HEPARIN SOD (PORCINE) 5000 UNITS/ML VIAL SC SCH (21:25)
[2019-07-10 22:00] VITALS: BP 111/57
[2019-07-11] MEDS: MEROPENEM INJ 500 MG in APPROPRIATE DILUENT 1 EA IV SCH ×2 (01:48→15:09)
[2019-07-11 06:00] VITALS: BP 111/59
[2019-07-11] MEDS: SENOKOT S TAB PO SCH ×2 (06:08→20:26)
[2019-07-11] MEDS: HEPARIN SOD (PORCINE) 5000 UNITS/ML VIAL SC SCH (06:08)
[2019-07-11] MEDS: ACETAMINOPHEN 500 MG TAB PO SCH ×2 (06:08→13:06)
[2019-07-11] MEDS: FERROUS SULFATE 325MG TAB PO SCH (06:09)
[2019-07-11] MEDS: NYSTATIN 100,000 UNITS/GM TOPICAL PWD 15 GM TOP SCH (06:09)
[2019-07-11] MEDS: PANTOPRAZOLE 40MG TAB (PROTONIX) PO SCH ×2 (06:09→20:27)
[2019-07-11 07:59] LABS: CREATININE FOR GFR 1.35 MG/DL (0.55-1.30); GLOMERULAR FILTRATION RATE 40.6 (>39); PHOSPHORUS LEVEL 3.1 MG/DL (2.5-4.9)
[2019-07-11 08:12] LABS: HEMATOCRIT 40.7 % (36.0-47.0); HEMOGLOBIN 11.5 g/dl (12.0-15.5); MEAN CORPUSCULAR HEMOGLOBIN 28.9 pg (27.0-33.0); MEAN CORPUSCULAR HGB CONC 28.3 g/dl (32.0-36.5); MEAN CORPUSCULAR VOLUME 102.3 fl (80.0-96.0); PLATELET COUNT, AUTOMATED 202 10^3/uL (150-450); RED BLOOD COUNT 3.98 10^6/uL (4.00-5.40); WHITE BLOOD COUNT 3.5 10^3/uL (4.0-10.0)
[2019-07-11 08:50] LABS: ABG BASE EXCESS -1.7 (-2.0-2.0); ABG HCO3 23.5 MEQ/L (22.0-26.0); ABG O2 SATURATION 93.8 % (95.0-99.0); ABG PARTIAL PRESSURE CO2 41.5 mmHg (35.0-45.0); ABG PARTIAL PRESSURE O2 73.2 mmHg (75.0-100.0); ABG TOTAL CO2 24.8 MEQ/L (23.0-31.0); ABG pH (ARTERIAL) 7.371 UNITS (7.350-7.450)
[2019-07-11] MEDS: HumaLOG INSULIN (NovoLOG) PER UNIT SC SCH ×7 (08:56→21:00)
[2019-07-11] MEDS: LEVEMIR (INSULIN DETEMIR) 1 UNITS/0.01ML SC SCH (08:57)
[2019-07-11] MEDS ORDERED: METOPROLOL TART 25 MG TABLET PO SCH (09:00)
[2019-07-11 09:57] LABS: CK-MB VALUE MASS < 1.0 NG/ML (<3.6); TROPONIN I < 0.02 NG/ML (< 0.10)
--- NOTE | 2019-07-11 10:02 | IPNPDOC ---
Text Note Date of Service The patient was seen on 07/11/19. NOTE Subjective: Patient seen and examined at bedside. No acute overnight events reported. Patient was awake, alert in the morning. Around 8:30 rapid response team was called, patient was found unresponsive to verbal stimuli and sternal rub. Patient was tachycardic with heart rate around 100. Upon my arrival patient regained consciousness, she stated that she slept. Glucose level was around 200. Neurological exam did not show any focal deficiency, cranial nerves intact, patient followed commands. She denies fever, chest pain, SOB chills, n/v, diarrhea. Telemetry showed rapid ventricular rate around 105 with atrial fibrillation Objective: General: NAD, generalized edema HEENT: NC/AT, PERRLA, EOMI Chest: CTA B/L, diminished breath sounds, dialysis catheter in the right in ternal jugular vein is present Heart: +S1S2, RRR, systolic murmur Abd: soft, NT, +BS Ext: large right groin wound with drainage and rash extended to right buttock area A/P: 74f p/w worsening renal failure and acute CHF requiring initiation of HD. Also patient was found to have a right inguinal rash to the right buttock area. Patient is on chronic dialysis due to end-stage renal diseases. Patient also has atrial fibrillation on Xarelto. #Altered mental status Blood gas did not show hypercarbia EKG, BMP, head CT, telemetry ordered #Macrocytic anemia Most likely patient has combined B12 deficiency with anemia of chronic diseases in top of iron deficiency We'll check B12, folate level #ESRD - follow as per renal - continue scheduled dialysis #DM Glucose level is under control continue sliding scale continue diabetic diet continue levemir and prandial insulin #Afib - xarelto restarted -For rate control continue bisoprolol #acute diastolic chf - resolved. volume being managed with hd Patient will need follow-up with prevention specialist in the outpatient settings lipid profile rosuvastatin 40 mg #wounds, #rash Patient has extensive rash in the right inguinal area extended to right buttock. There is concern for shingles superimposed with bacterial infection. However patient states that a rash painless. - cultures Pseudomonas Aeruginosa - continue meropenem - will repeat Bx -Appreciate/ agree with ID rec - continue wound care #thrombocytopenia - resolved #Delirium - resolved - holding gabapentin, bentyl, and oxycodone #DVT prophylaxis -Oral anticoagulation VS,Fishbone, I+O VS, Fishbone, I+O Laboratory Tests 07/11/19 06:17 Red Blood Count 3.98 L, Mean Corpuscular Volume 102.3 H, Mean Corpuscular Hem oglobin 28.9, Mean Corpuscular Hemoglobin Concent 28.3 L, Red Cell Distribution Width 24.9 H, Calcium Level 10.0 Vital Signs Date Time Temp Pulse Resp B/P (MAP) Pulse Ox O2 Delivery O2 Flow Rate FiO2 07/11/19 06:00 97.2 88 20 111/59 (10) 93 I&O- Last 24 Hours up to 6 AM 07/11/19 05:59 Intake Total 680 ml Output Total 0 ml Balance 680 ml SHARYN FERREIRA DO Jul 11, 2019 10:01
[2019-07-11 10:07] LABS: BLOOD UREA NITROGEN 36 MG/DL (7-18); CALCIUM LEVEL 9.6 MG/DL (8.8-10.2); CARBON DIOXIDE LEVEL 24 MEQ/L (21-32); CHLORIDE LEVEL 110 MEQ/L (98-107); CREATININE FOR GFR 1.38 MG/DL (0.55-1.30); GLOMERULAR FILTRATION RATE 39.6 (>39); GLUCOSE, FASTING 237 MG/DL (70-100); POTASSIUM SERUM 4.4 MEQ/L (3.5-5.1); SODIUM LEVEL 144 MEQ/L (136-145)
[2019-07-11 10:13] LABS: CPK CREATINE PHOSPHOKINASE 16 U/L (26-192); MB/CK RELATIVE INDEX 6.25 (< OR =4)
[2019-07-11] MEDS ORDERED: ALTEPLASE 2 MG/2 ML VIAL (J2997 PER 1MG) IV PRN (10:15)
--- NOTE | 2019-07-11 10:15 | REP ---
CT head without contrast: Clinical indication: Unresponsive. Comparison: CT head without contrast of 01/17/2017. Technique: Axial CT of the head was performed without contrast. Findings: There is no visible soft tissue swelling or calvarial fracture. There is no evidence of acute intracranial hemorrhage. There is no hydrocephalus. There is no mass effect or midline shift. The basal cisterns are patent. There are scattered hypodensities within the periventricular and subcortical white matter, similar to prior which is nonspecific but suggestive of microvascular ischemic disease. Note is made of dense intracranial vascular calcification. There is a tiny hypodensity within the right basal ganglia region which may represent a prominent perivascular space or chronic lacunar infarct, unchanged. There is no extra-axial fluid collection. The visualized paranasal sinuses and mastoid air cells are clear. There is diffuse bone demineralization. Impression: 1. No acute intracranial abnormality. 2. Similar white matter changes. 3. Intracranial vascular calcification. Electronically Signed by Kaz Pena MD 07/11/2019 01:41 P
[2019-07-11] MEDS ORDERED: HEPARIN 1,000 UNITS/ML 10ML VIAL (FOR RADIOLOGY& DIALYSIS ONLY) XX ONE (10:45)
[2019-07-11 11:39] LABS: FOLATE 7.7 NG/ML (>5.4)
[2019-07-11 12:20] LABS: CHOLESTEROL LEVEL 81 MG/DL (<200); CHOLESTEROL RISK RATIO 3.521 (<5); HDL CHOLESTEROL 23 MG/DL (>40); LDL CHOLESTEROL 28 MG/DL (<100); NON-HDL-C 58 MG/DL; TRIGLYCERIDES LEVEL 149 MG/DL (<150)
[2019-07-11 15:30] VITALS: BP 129/69
[2019-07-11] MEDS ORDERED: RIVAROXABAN 15 MG TAB (XARELTO) PO SCH (18:00)
[2019-07-11] MEDS: FLUTICASONE PROP 0.05% NASAL SPRAY 16 GM (FLONASE) SCH (18:19)
[2019-07-11 19:52] VITALS: BP 117/64
[2019-07-11 20:24] VITALS: BP 102/66
[2019-07-11 20:26] VITALS: BP 102/66
[2019-07-11] MEDS: BISOPROLOL FUMARATE 5 MG TAB PO SCH (20:26)
[2019-07-11] MEDS: valACYclovir HCL 500 MG TAB PO SCH (20:27)
--- NOTE | 2019-07-11 20:40 | IPN ---
DATE: 07/11/2019 Mrs. Painter is seen this morning during dialysis. She had a CT scan of her head done this morning prior to dialysis which did not show any acute intracranial abnormality. Her catheter is not working very well today and we are using Activase. She has been afebrile and her dyspnea and peripheral edema have improved significantly since admission. PHYSICAL EXAMINATION: Temperature 97.2 degrees Fahrenheit, heart rate 88 per minute and respiratory rate 20 per minute. Blood pressure 111/59 mmHg and oxygen saturation 93% on room air. Head is atraumatic. Right-sided internal jugular vein Perma-Cath is present. Heart sounds irregular in rhythm. Lungs with diminished breath sounds. Abdomen is obese, soft and nontender and bowel sounds present. Extremities are without any cyanosis or clubbing. Skin has a rash on right lower abdomen, hip and buttock area. LABORATORY DATA: Today's laboratories show WBC count 3.5, hemoglobin 11.5 and hematocrit 40.7. Sodium 144, potassium 4.4, CO2 of 24, BUN 36 and creatinine 1.38. Glucose 237 and calcium 9.6. PROBLEMS: 1. End-stage renal disease. The patient has been dialysis-dependent. She is being dialyzed today. Her catheter is not working very well and we are using Activase right now. 2. Anemia. Her anemia has improved and we will hold off on further dosing of Aranesp. 3. Generalized edema and hypervolemia. Her volume status has improved significantly and we are trying to remove two liters of fluid today. It remains to be seen how she tolerates it. 4. Shingles. She has a rash on right lower abdomen, hip and buttock area which is consistent with shingles. It was infected with bacteria secondarily. She has been treated with meropenem depending on the sensitivity. 5. Atrial fibrillation and hypotension. Her heart rate is reasonably well-controlled on once a day dose of bisoprolol 5 mg. Blood pressure is stable and we will continue to monitor closely.
[2019-07-11 22:00] VITALS: BP 96/57
[2019-07-12] MEDS: ACETAMINOPHEN 500 MG TAB PO SCH ×2 (00:01→06:05)
[2019-07-12] MEDS: NYSTATIN 100,000 UNITS/GM TOPICAL PWD 15 GM TOP SCH ×4 (00:02→08:46)
[2019-07-12 06:00] VITALS: BP 109/66
[2019-07-12 06:13] LABS: HEMATOCRIT 39.3 % (36.0-47.0); HEMOGLOBIN 11.3 g/dl (12.0-15.5); MEAN CORPUSCULAR HEMOGLOBIN 28.6 pg (27.0-33.0); MEAN CORPUSCULAR HGB CONC 28.8 g/dl (32.0-36.5); MEAN CORPUSCULAR VOLUME 99.5 fl (80.0-96.0); PLATELET COUNT, AUTOMATED 186 10^3/uL (150-450); RED BLOOD COUNT 3.95 10^6/uL (4.00-5.40); WHITE BLOOD COUNT 4.1 10^3/uL (4.0-10.0)
[2019-07-12 06:33] LABS: CALCIUM LEVEL 9.3 MG/DL (8.8-10.2); CREATININE FOR GFR 1.09 MG/DL (0.55-1.30); MAGNESIUM LEVEL 1.8 MG/DL (1.8-2.4); PHOSPHORUS LEVEL 2.8 MG/DL (2.5-4.9); POTASSIUM SERUM 3.9 MEQ/L (3.5-5.1)
[2019-07-12] MEDS: HumaLOG INSULIN (NovoLOG) PER UNIT SC SCH ×2 (07:30)
[2019-07-12] MEDS: LEVEMIR (INSULIN DETEMIR) 1 UNITS/0.01ML SC SCH (08:43)
[2019-07-12] MEDS: SENOKOT S TAB PO SCH (08:44)
[2019-07-12] MEDS: FERROUS SULFATE 325MG TAB PO SCH (08:45)
[2019-07-12] MEDS: valACYclovir HCL 500 MG TAB PO SCH (08:45)
[2019-07-12] MEDS: PANTOPRAZOLE 40MG TAB (PROTONIX) PO SCH (08:45)
[2019-07-12] MEDS ORDERED: ROSUVASTATIN 10 MG TAB (CRESTOR) PO SCH (09:00)
[2019-07-12] MEDS ORDERED: VALA500T5 PO (10:26)
--- NOTE | 2019-07-12 10:36 | IPNPDOC ---
Text Note Date of Service The patient was seen on 07/12/19. NOTE Subjective: Patient seen and examined at bedside. No acute overnight events reported. Patient was awake, alert in the morning. She denies fever, chest pain, SOB chills, n/v, diarrhea. Objective: General: NAD, generalized edema HEENT: NC/AT, PERRLA, EOMI Chest: CTA B/L, diminished breath sounds, dialysis catheter in the right internal jugular vein is present Heart: +S1S2, RRR, systolic murmur Abd: soft, NT, +BS Ext: large extensive herpetiform crusted rash in inguinal area extended to right buttock area, A/P: 74f p/w worsening renal failure and acute CHF requiring initiation of HD. HD fistula was placed and dialysis started. Also patient was found to have a right inguinal rash to the right buttock area. Culture was positive for pseudomonas aeruginosa. Patient received treatment with meropenem. ID specialist Dr. Dahl consulted patient yesterday and recommended treatment for shingles. Patient is on chronic dialysis due to end-stage renal diseases. Patient also has atrial fibrillation on Xarelto. #Altered mental status Resolved Yesterday CAT scan was negative for stroke #Macrocytic anemia Secondary to end-stage diseases Most likely patient has combined B12 deficiency with anemia of chronic diseases in top of iron deficiency #ESRD - follow as per renal - continue scheduled dialysis #DM Glucose level is under control continue sliding scale continue diabetic diet continue levemir and prandial insulin #Afib - xarelto restarted -For rate control continue bisoprolol #acute diastolic chf - resolved. volume being managed with hd Patient will need follow-up with ship fitter in the outpatient settings lipid profile rosuvastatin 40 mg Shingles Patient has extensive rash in the right inguinal area extended to right buttock. Herpetiform rash crusted. - valacyclovir started for10 days - dc antibiotics #thrombocytopenia - resolved #Delirium - resolved - holding gabapentin, bentyl, and oxycodone #DVT prophylaxis -Oral anticoagulation VS,Fishbone, I+O VS, Fishbone, I+O Laboratory Tests 07/12/19 05:40 Red Blood Count 3.95 L, Mean Corpuscular Volume 99.5 H, Mean Corpuscular Hemoglobin 28.6, Mean Corpuscular Hemoglobin Concent 28.8 L, Red Cell Distribution Width 24.1 H, Calcium Level 9.3 Vital Signs Date Time Temp Pulse Resp B/P (MAP) Pulse Ox O2 Delivery O2 Flow Rate FiO2 07/12/19 06:00 97.3 88 18 109/66 (80) 98 I&O- Last 24 Hours up to 6 AM 07/12/19 06:00 Intake Total 410 ml Output Total 2000 ml Balance -1590 ml SHARYN FERREIRA DO Jul 12, 2019 10:36
--- NOTE | 2019-07-12 10:41 | CR ---
DATE OF CONSULTATION: 07/11/2019 The patient was seen at 7:00 p.m. after she came back from [facility]. REASON FOR CONSULTATION: Rash in the right groin. HISTORY OF PRESENT ILLNESS: 74-year-old lady with a history of chronic kidney disease who was transferred from [facility] for increased fatigue associated with nausea. The patient was stating that she was having dyspnea, weight gain and some shortness of breath. She was then noted to have a rash in her right groin that was vesicular, erythematous, extending to the buttocks. The patient was initially treated with IV clindamycin from July 03 to July 08, then she was switched to meropenem. There was concern that it could be shingles, but she never received antivirals. She was treated with nystatin topical powder for one week from June 27 to July 03 with no improvement in her symptoms. She was not febrile. She did not have significant pain in the area. She is just irritable and does not like to be examined. PAST MEDICAL HISTORY: Significant for: Chronic kidney disease stage V. Anemia of chronic disease. Iron deficiency anemia for which she receives IV iron. Chronic leg wounds from venous stasis. Atrial fibrillation on Xarelto. Chronic diastolic heart failure with severe pulmonary hypertension. Gastrointestinal (GI) bleed secondary to colonic polyps. Sick sinus syndrome with pacemaker placement. Insulin-dependent diabetes. Morbid obesity. Severe aortic stenosis. History of gastric ulcer. SOCIAL HISTORY: She resides at [facility]. She does not drink or smoke. FAMILY HISTORY: Diabetes, hypertension and coronary artery disease. MEDICATIONS: - dicyclomine 10 mg by mouth twice a day - Crestor 40 mg daily - ferrous sulfate 325 mg daily - Flonase one spray daily - insulin sliding scale - meropenem 500 mg IV every 12 hours - Protonix 40 mg by mouth twice a day - Senokot two tablets by mouth twice a day - Tylenol as needed - iron 100 mg IV with hemodialysis as needed - Xarelto 15 mg by mouth daily - Zebeta 5 mg by mouth at bedtime - Zofran as needed ALLERGIES: 1. CEPHALEXIN. LABORATORIES: White count 3.5, hemoglobin 11.5, hematocrit 40.7, platelets 202. Sodium 144, potassium 4.4, chloride 110, bicarb 24, BUN 36, creatinine 1.38, glucose 237, calcium 9.6, CPK 16, triglycerides 149, cholesterol 81, LDL 28, vitamin B12 1488, folate 7.7, creatinine was 3.64 on June 25. Wound culture on 07/05 from the groin has Pseudomonas aeruginosa, Proteus mirabilis. Another culture done from the groin on 07/08 had E. Coli. Blood cultures on 07/09 were no growth after 48 hours. IMAGING STUDIES: Head CT shows no acute intracranial abnormalities. Some intracranial vascular calcifications. CT abdomen and pelvis done on 06/29 showed lung bases with a right pleural effusion, partial right lung collapse, with left pleural effusion and moderate pericardial effusion, moderate subcutaneous interstitial edema. Renal ultrasound on 06/25 right kidney not visualized. Left kidney with moderate hydronephrosis and 12 mm renal calculus suggested, nonobstructing. PHYSICAL EXAMINATION: Temperature is 97.2, heart rate 88, respirations 20, blood pressure 111/59, oxygen saturation 93% on room air. GENERAL APPEARANCE: Sick looking elderly female, unhappy to be bothered because she is tired. HEAD/ENT: Atraumatic. Oropharynx clear. No JVD. Right sided internal jugular PermaCath. HEART: Normal S1, S2, irregular with a systolic ejection murmur 3/6 heard at the right upper sternal border. LUNGS: Diminished breath sounds at the bases but clear. No wheezes. ABDOMEN: Obese, soft, nontender. Right groin has erythematous, ulcerated lesions, multiple in the groin. On the buttock area dry scabs, all suggestive of shingles along a couple of dermatomes in the right inguinal area. Significant moisture with maceration of the skin. No significant tenderness or purulence. EXTREMITIES: Trace edema. No cyanosis or clubbing, multiple ulcerated skin lesions on the legs with a horizontal under the right knee along the calf. IMPRESSION: This is a 74-year-old female who was admitted with end-stage renal disease, started on dialysis, doing much, much better. From a fluid overload standpoint edema has markedly improved. The patient clinically has done well except for this rash in the right groin area which is definitely shingles. She has been treated with IV antibiotics, clindamycin and meropenem, for colonization of the wound with E. coli and Pseudomonas, which is expected in that area. The patient never had a fever or a white count. She did not need antibiotics. There is probably a component of candidiasis as well as the wound is macerated and wet. PLAN: Discontinue IV antibiotic. Switch her to Valtrex 500 mg by mouth twice a day for seven days. Mycostatin powder to right groin area. Would consider also cleaning the area with Vashe and doing a Vashe dressing on that wound. No need for antibiotics. The patient could be transferred back to the [facility] when clinically stable from a renal standpoint. RAFFAELED
--- NOTE | 2019-07-12 17:33 | DS.PDOC ---
Discharge Summary General Date of Admission Jun 24, 2019 at 21:43 Date of Discharge 07/12/19 Primary Care Physician: Jr Del Rosario Collins Attending Physician: SHARYN FERREIRA DO Discharge Summary PROCEDURES PERFORMED DURING STAY: HD fistula placement ADMITTING DIAGNOSES: #ESRD #Anemia #Altered mental status #Diabetes mellitus #Atrial fibrillation #CHF with preserved ejection fraction #Rash #Thrombocytopenia # Delirium #Morbid obesity #Chronic leg wounds from venostasis DISCHARGE DIAGNOSES: #ESRD #Anemia #Altered mental status #Shingles #Diabetes mellitus #Atrial fibrillation #CHF with preserved ejection fraction #Rash #Thrombocytopenia # Delirium #Morbid obesity #Chronic leg wounds from venostasis COMPLICATIONS/CHIEF COMPLAINT: Ckd, Stage 4. HISTORY OF PRESENT ILLNESS: 74f p/w worsening renal failure and acute CHF, end- stage renal diseases required initiation of HD. HD fistula was placed and dialysis started. Also patient was found to have a right inguinal rash to the right buttock area. Wound culture was positive for pseudomonas aeruginosa. HOSPITAL COURSE: During hospital stay following problems have been addressed #Altered mental status On 07/10/19 patient developed short period of unresponsiveness. Blood gas did not show hypercarbia. EEG result pending CAT scan was negative for stroke # anemia Secondary to end-stage diseases Iron deficiency anemia with anemia of chronic diseases Patient received treatment with iron supplementation #ESRD .Permanent dialysis - continue scheduled dialysis #DM Patient received treatment with insulin sliding scale and Levemir Diabetes diet #Afib - xarelto -For rate control continue bisoprolol #acute diastolic chf Most likely secondary to end-stage renal diseases volume being managed with hd Patient will need follow-up with fence laborer in the outpatient settings Shingles Patient has extensive rash in the right inguinal area extended to right buttock. Herpetiform rash crusted. Initially was suspicious for bacterial rash. Patient has been treated with IV meropenem. ID specialist recommended treatment with valacyclovir and discontinue antibiotics #thrombocytopenia Secondary to bone marrow suppression due to multiple comorbidity #Delirium Most likely due to polypharmacy. - gabapentin, bentyl, and oxycodone were on hold. Delirium resolved in 48 hours #DVT prophylaxis -Oral anticoagulation DISCHARGE MEDICATIONS: Please see below. ALLERGIES: Please see below. PHYSICAL EXAMINATION ON DISCHARGE: VITAL SIGNS: Please see below. General: NAD, generalized edema HEENT: NC/AT, PERRLA, EOMI Chest: CTA B/L, diminished breath sounds, dialysis catheter in the right internal jugular vein is present, pacemaker in place Heart: +S1S2, RRR, systolic murmur Abd: soft, NT, +BS Ext: large extensive herpetiform crusted rash in inguinal area extended to right buttock area, LABORATORY DATA: Please see below. IMAGING: Reviewed ACTIVITY: As tolerated DIET: Diabetes diet DISCHARGE PLAN: SNF DISPOSITION: [facility]. DISCHARGE INSTRUCTIONS: 1. Continue dialysis, continue treatment shingles with valacyclovir ITEMS TO FOLLOWUP ON OUTPATIENT: 1. PCP in 2-3 days, shuffle board operator in 1 week DISCHARGE CONDITION: Stable TIME SPENT ON DISCHARGE: Greater than 25 minutes. Vital Signs/I&Os Vital Signs Date Time Temp Pulse Resp B/P (MAP) Pulse Ox O2 Delivery O2 Flow Rate FiO2 07/12/19 06:00 97.3 88 18 109/66 (80) 98 I&O- Last 24 Hours up to 6 AM 07/12/19 06:00 Intake Total 410 ml Output Total 2000 ml Balance -1590 ml Laboratory Data Labs 24H Laboratory Tests 2 07/11/19 17:57: Bedside Glucose (Misc Panel) 145H 07/11/19 21:42: Bedside Glucose (Misc Panel) 86 07/12/19 05:40: Nucleated Red Blood Cells % (auto) 0.0, Anion Gap 5L, Glomerular Filtration Rate 52.0, Blood Urea Nitrogen 22H, Creatinine 1.09, Sodium Level 139, Potassium Level 3.9, Chloride Level 106, Carbon Dioxide Level 28, Calcium Level 9.3, Phosphorus Level 2.8, Magnesium Level 1.8 07/12/19 11:36: Bedside Glucose (Misc Panel) 318H CBC/BMP Laboratory Tests 07/12/19 05:40 Red Blood Count 3.95 L, Mean Corpuscular Volume 99.5 H, Mean Corpuscular Hemoglobin 28.6, Mean Corpuscular Hemoglobin Concent 28.8 L, Red Cell Distribution Width 24.1 H, Calcium Level 9.3 FSBS Laboratory Tests Test 07/11/19 17:57 07/11/19 21:42 07/12/19 11:36 Range/Units Bedside Glucose (Misc Panel) 145 86 318 83-110 MG/DL Microbiology Microbiology 07/09/19 Blood Culture - Preliminary, Resulted No Growth after 48 hours. All Specime... 07/09/19 Blood Culture - Preliminary, Resulted No Growth after 48 hours. All Specime... 07/08/19 Gram Stain - Final, Resulted 07/08/19 Wound Culture - Preliminary, Resulted Escherichia Coli Staphylococcus Sp Coag Neg 07/05/19 Gram Stain - Final, Complete 07/05/19 Wound Culture - Final, Complete Pseudomonas Aeruginosa Proteus Mirabilis Discharge Medications Scheduled Acetaminophen (Tylenol Extra Strength) 500 Mg Tablet, 1,000 MG PO Q8H, (Reported) Bisoprolol Fumarate (Bisoprolol Fumarate) 5 Mg Tab, 5 MG PO BID, (Reported) Dicyclomine HCl (Dicyclomine HCl) 10 Mg Cap, 10 MG PO BID, (Reported) Digoxin (Digoxin) 125 Mcg Tab, 125 MCG PO 3XW, (Reported) MON, MON, MON Ferrous Sulfate (Ferrous Sulfate) 325 Mg Tablet, 325 MG PO DAILY, (Reported) Fluticasone Propionate (Flonase Allergy Relief) 50 Mcg/Act Spr, 1 SPRAY NA QPM, (Reported) Insulin Detemir (Levemir) 1 Units/0.01 Ml Susp, 70 UNITS SC BID, (Reported) Insulin Human Lispro (Humalog) 1 Units/0.01 Ml Inj, 16 UNITS SC QAM, (Reported) IN ADDITION TO SLIDING SCALE Insulin Human Lispro (Humalog) 1 Units/0.01 Ml Inj, 22 UNITS SC BID, (Reported) @1100/1600 IN ADDITION TO SLIDING SCALE Insulin Lispro (Humalog Kwikpen U-100) 100 Unit/Ml Inj, 1 DOSE SC ACHS, (Reported) PER SLIDING SCALE IN ADDITION TO OTHER ORDER Lanolin Alcohol/Mo/W.pet/[place] (Eucerin Creme) 454 Gm Cream..g., 1 DOSE TOP DAILY, (Reported) APPLY TO ENTIRE BODY Magnesium Oxide (Magnesium Oxide) 400 Mg Tab, 800 MG PO BID, (Reported) Pantoprazole Sodium (Pantoprazole Sodium) 40 Mg Tab, 40 MG PO BID, (Reported) Pravastatin Sodium (Pravastatin Sodium) 40 Mg Tab, 40 MG PO DAILY, (Reported) Rivaroxaban (Xarelto) 15 Mg Tab, 15 MG PO QPM, (Reported) WAS ON HOLD FOR 2 DAYS - DUE TO RESTART 06/24/19 Silver Sulfadiazine (Ssd) 50 Gm Cream..g., 1 DOSE TOP DAILY, (Reported) APPLY TO WOUND BEDTHEN COVER WITH TELFA EVERY DAY UNTIL HEALED Torsemide (Torsemide) 20 Mg Tablet, 40 MG PO DAILY, (Reported) Valacyclovir HCl (Valacyclovir) 500 Mg Tablet, 500 MG PO BID Scheduled PRN Bisacodyl (Dulcolax) 10 Mg Sup, 10 MG [place] DAILY PRN for CONSTIPATION, (Reported) Glucagon,Human Recombinant (Glucagon Emergency Kit) 1 Mg Kit, 1 MG IM for LOW BLOOD SUGAR, (Reported) Magnesium Hydroxide (Milk of Magnesia) 400 Mg/5 Ml Oral.susp, 30 ML PO DAILY PRN for CONSTIPATION, (Reported) Nitroglycerin (Nitrostat) 0.4 Mg Subl, 0.4 MG SL NITRO PRN for CHEST PAIN, (Reported) Ondansetron HCl (Zofran) 4 Mg Tablet, 4 MG PO Q4H PRN for NAUSEA, (Reported) Sodium Phosphate,[place]-Dibasic (Enema Ready To Use) 1 Melissa Melissa, 1 DOSE [place] DAILY PRN for CONSTIPATION, (Reported) Allergies Coded Allergies: cephalexin (Verified Adverse Reaction, Mild, HEADACHE, 06/06/19) SHARYN FERREIRA DO Jul 12, 2019 17:33
--- NOTE | 2019-07-12 22:26 | IPN ---
DATE: 07/12/2019 Mrs. Painter is seen this morning on her bedside. She is feeling well and denies any nausea, vomiting, dyspnea, chest pain, fever or chills. She had a CT scan of head yesterday as nursing staff had difficulty waking her up. She feels that she was just sleeping and woke up without any problem. PHYSICAL EXAMINATION: Temperature 97.3 degrees Fahrenheit, heart rate 88 per minute and respiratory rate 18 per minute. Blood pressure 109/66 mmHg and oxygen saturation 98% on room air. Head is atraumatic. Neck is supple and jugular venous distention (JVD) not abnormally elevated. Heart: Sounds are irregular in rhythm. Lungs with diminished breath sounds at bases. Abdomen: Obese, soft and nontender and bowel sounds are normal. Extremities: Without any cyanosis or clubbing. Skin has rash on her right lower abdomen, hip and buttock area. Her bilateral lower leg wounds are covered with dressing. Neurologically she is awake, alert and at her baseline mentation. Today's labs show WBC count 4.1, hemoglobin 11.3 and hematocrit 39.3. Sodium 139, potassium 3.9, CO2 of 28, BUN 22 and creatinine 1.09. PROBLEM #1: End-stage renal disease. The patient has been dialysis dependent and she was dialyzed yesterday. We will schedule her next dialysis for tomorrow. PROBLEM #2: Congestive heart failure/hypervolemia. Volume status has improved significantly, and we will continue to maintain with hemodialysis. PROBLEM #3: Anemia. Her anemia has improved and corrected. She will be monitored and treated with hemodialysis. PROBLEM #4: Disposition. From a renal standpoint, the patient is ready for discharge back to half-way. She will continue with outpatient hemodialysis.
--- NOTE | 2019-07-13 08:32 | EEG ---
DATE OF PROCEDURE: 07/11/2019 REFERRING PHYSICIAN: Dr. Ga Kurtz DIAGNOSIS: Seizure. [id number] HISTORY: The patient is a 74-year-old woman who was admitted at [facility] due to an episode of unresponsiveness to verbal stimuli and sternal rub. She was found to be tachycardiac. She regained consciousness and stating that she was sleeping. This EEG was done to rule out epileptic potential. She is currently taking meropenem, Protonix, bisoprolol, Xarelto, Crestor, etc. TECHNICAL DESCRIPTION: This digital EEG was recorded by 21 scalp, ear and two EKG electrodes and was reviewed in bipolar and referential montages following reformatting 10-20 international electrode placement system. INTERPRETATION: The patient was noted to be in awake and drowsy states during this EEG. Resting awake background consisted of 6-7 Hz theta activity measuring 15-40 microvolts in amplitude which was symmetric and reactive to eye opening. No sleep was achieved. Hyperventilation could not be performed. Photic stimulation remained unremarkable. EKG revealed irregular heart rhythm with left bundle branch block pattern. No focal, lateralizing or epileptiform abnormalities were seen. No clinical or electrographic seizures were recorded. CONCLUSION: This EEG in awake and drowsy states is abnormal due to presence of generalized slowing and disorganization of background consistent with nonspecific diffuse cerebral dysfunction such as seen in encephalopathy due to multiple potential causes. EKG revealed likely atrial fibrillation with bundle branch block pattern. No epileptiform abnormalities were seen. Clinical correlation is recommended.
--- NOTE | 2019-07-13 15:51 | ECGEPIP ---
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
[2019-07-15] MEDS ORDERED: INSUHUMDS SC (14:04)
[2019-07-15] MEDS ORDERED: [UNRECOGNIZED DRUG - CODE] EX (14:04)
== END 2019-07-12 12:30 | DRG 291 ==
LOC: M ED 15:48 → EDBD 15:48 → M ED INP 15:49 → OBSVTOIN 21:43 → M PCU 06-25 12:23 → M MSPAV 06-29 16:03
PROVIDERS: ADMIT Internal Medicine; ATTEND Internal Medicine
PROC: 02H633Z Insertion of Infusion Device into Right Atrium, Percutaneous Approach (ICD-10-PCS; principal; 2019-06-25)
PROC: 5A1D70Z Performance of Urinary Filtration, Intermittent, Less than 6 Hours Per Day (ICD-10-PCS; 2019-06-26)
PROC: 30233N1 Transfusion of Nonautologous Red Blood Cells into Peripheral Vein, Percutaneous Approach (ICD-10-PCS; 2019-06-28)
PROC: 0JH63XZ Insertion of Tunneled Vascular Access Device into Chest Subcutaneous Tissue and Fascia, Percutaneous Approach (ICD-10-PCS; 2019-07-01)
PROC: 02H633Z Insertion of Infusion Device into Right Atrium, Percutaneous Approach (ICD-10-PCS; 2019-07-01)
PROC: 05PY33Z Removal of Infusion Device from Upper Vein, Percutaneous Approach (ICD-10-PCS; 2019-07-01)
DX: I13.2 Hypertensive heart and chronic kidney disease with heart failure and with stage 5 chronic kidney disease, or end stage renal disease (principal); I50.33 Acute on chronic diastolic (congestive) heart failure; N18.6 End stage renal disease; N17.9 Acute kidney failure, unspecified; L97.928 Non-pressure chronic ulcer of unspecified part of left lower leg with other specified severity; L97.918 Non-pressure chronic ulcer of unspecified part of right lower leg with other specified severity; E87.2 Acidosis; Z68.41 Body mass index [BMI] 40.0-44.9, adult; R44.0 Auditory hallucinations; R53.1 Weakness; D63.1 Anemia in chronic kidney disease; I27.20 Pulmonary hypertension, unspecified; I87.2 Venous insufficiency (chronic) (peripheral); I48.2 Chronic atrial fibrillation; E11.22 Type 2 diabetes mellitus with diabetic chronic kidney disease; B02.9 Zoster without complications; E66.01 Morbid (severe) obesity due to excess calories; R41.82 Altered mental status, unspecified; I35.0 Nonrheumatic aortic (valve) stenosis; D69.6 Thrombocytopenia, unspecified; Z87.11 Personal history of peptic ulcer disease; Z86.010 Personal history of colon polyps; I25.10 Atherosclerotic heart disease of native coronary artery without angina pectoris; E87.5 Hyperkalemia; E11.622 Type 2 diabetes mellitus with other skin ulcer; Z79.4 Long term (current) use of insulin; Z79.01 Long term (current) use of anticoagulants; Z79.899 Other long term (current) drug therapy

== ENCOUNTER 2019-07-16 08:03 | Day surgery (SDC) | payer MEDICARE, MEDICAID ==
[~2019-07-16] VITALS: Ht 162.6 cm; Wt 105.5 kg
[~2019-07-16 08:03] MED LIST changes: +ACET-897 PO; +EUCECRE8 TOP; +FERR1TAB8 PO; +LIDOCAINE 1% MDV 20ML VIAL SQ PRN; +MILKSUS3 PO; +NS 1,000 ML IV SCH; +SILV50CR TOP; +TORS20TA2 PO; +VALA500T5 PO; +ZOFR4TAB16 PO; +[UNRECOGNIZED DRUG - CODE] EX
[2019-07-16 08:54] LABS: POTASSIUM SERUM 4.2 MEQ/L (3.5-5.1)
[2019-07-16] MEDS ORDERED: BUPIVACAINE HCL 0.5% 30 ML VIAL As Ordered ONE (09:05)
[2019-07-16] MEDS ORDERED: HumaLOG INSULIN (NovoLOG) PER UNIT As Ordered ONE (09:34)
[2019-07-16] MEDS: HumaLOG INSULIN (NovoLOG) PER UNIT SC ONE (09:40)
[2019-07-16] MEDS: HEPARIN SOD (PORCINE) 5000 UNITS/ML VIAL As Ordered ONE ×2 (10:07→10:10)
[2019-07-16] MEDS: ISOVUE-300 61% 50ML VIAL (Q9967) As Ordered ONE (10:10)
[2019-07-16] MEDS: LIDOCAINE 2% MDV 20 ML VIAL As Ordered ONE (10:10)
[2019-07-16 10:50] VITALS: BP 124/54
--- NOTE | 2019-07-16 11:45 | REP ---
C-ARM VIEWS CHEST: Two C-arm views of the chest are performed. Right central venous catheter is seen with the tip at the junction of the superior vena cava and right atrium. 4 seconds of fluoroscopy time utilized. Electronically Signed by Jose David Stern MD 07/17/2019 09:38 A
--- NOTE | 2019-07-16 23:05 | ROOPDOC ---
[facility] Report Of Operation Report of Operation DATE OF PROCEDURE: 07/16/2019 PREPROCEDURE DIAGNOSES: End-stage renal disease requiring access for renal replacement therapy. Dysfunctional right internal jugular vein tunneled central venous catheter. POSTPROCEDURE DIAGNOSES: End-stage renal disease requiring access for renal replacement therapy. Dysfunctional right internal jugular vein tunneled central venous catheter. PROCEDURE: Fluoroscopic guided right internal jugular vein 19 cm tip to cuff tunneled central venous catheter evaluation. Removal of the right internal jugular vein tunneled central venous catheter with removal of a 19 cm tip to cuff palindrome catheter. Placement of a right internal jugular vein tunneled central venous catheter with a 19 cm tip to cuff [employer] [place] hemodialysis catheter. ATTENDING SURGEON: DR. Jenifer Romero M.D. MEDICAL ASSEMBLY: Latoya Ortiz and Sammie Dhillon INDICATION: Patient is a 74-year-old female who initially underwent placement of a temporary none tunneled catheter for hemodialysis access. The temporary catheter was eventually exchanged for a tunneled central venous catheter with use of the initial cannulation site for placement of the tunneled central venous catheter using a palindrome catheter. The catheter is now nonfunctioning and the patient was unable to undergo hemodialysis on 07/15/2019 due to neither port of the catheter functioning. Patient will undergo evaluation of the right internal jugular vein tunneled central venous catheter with possible removal, replacement, angioplasty, stenting, atherectomy and/or placement of a catheter at a new location. The procedure was described and explained to the patient in detail including drawing of pictures demonstrating the procedure and anatomy. Risks, benefits and alternative treatment options were discussed with the patient. Alternative treatment options included but were not limited to no intervention. Benefits included but were not limited to access for hemodialysis until permanent access for renal replacement therapy is created and/or functional. Risks included, but were not limited to infection, bleeding, pneumothorax, hemothorax, possible need for open surgical intervention, allergic reaction or complication from prepping and draping materials, possible need for transfusion of blood products, allergic and/or adverse reaction to the local or IV anesthetic , cerebrovascular accident, myocardial infarction, pulmonary embolus, deep venous thrombosis, loss of limb, loss of life, poor satisfaction, poor outcome and or results. Risks of not performing the procedure included but were not limited to inability to obtain renal replacement therapy via hemodialysis and . The patient's questions were answered. The patient voices understanding and acceptance of these risks, benefits and alternative treatment options. The patient voices acceptance of the risks associated with the procedure and consents to proceed. There were no promises or guarantees made to the patient regarding the outcome or results of the procedure. ANESTHESIA: Local with 20 mL of 2% lidocaine mixed with 0.5% Marcaine. Sedation time: None EBL: 20 ml. IVF: 50 ml. FLUORO TIME: 0.1 minutes. CONTRAST: None. COMPLICATIONS: None. DRAINS: None. SPECIMENS: None. IMPLANTS: Right internal jugular vein tunneled central venous catheter with use of a 19 cm tip to cuff [employer] [place] hemodialysis catheter. DESCRIPTION OF PROCEDURE: Patient was taken to the angiography suite, placed supine on the angiography room table and then prepped and draped in a standard surgical fashion. A procedural timeout was conducted by myself and the team members in the room confirming the correct patient, procedure and laterality. Fluoroscopy was used to evaluate the tunneled right internal jugular vein central venous catheter which showed the catheter tip to be in the superior vena cava right atrial junction with a slight kink at the apex of the catheter in the right neck. Both ports of the catheter were aspirated noted to not aspirate at all. A catheter flow study was not performed as the etiology of the dysfunction of the PermCath was thought to be secondary to the kink in the cervical portion of the neck. Two stiff angled glide wires were advanced through the catheter ports and advanced into the inferior vena cava. The skin and subcutaneous tissue overlying the catheter and subcutaneous cuff were then anesthetized with 2% lidocaine mixed with 0.5% Marcaine. The subcutaneous cuff were sharply dissected free through the entry site in the right chest. The catheter was removed and there was control of bleeding with manual compression. The new catheter was positioned under fluoroscopic guidance with the tip in the superior vena cava right atrial junction after being advanced over the 2 angled glide wires under fluoroscopic guidance. Both ports of the catheter were aspirated, noted to aspirate easily and then flushed with heparinized saline. The catheter was secured to the right anterior chest wall using #2-0 Prolene suture after anesthetizing the overlying skin and subcutaneous tissue with 2% lidocaine mixed with 0.5% Marcaine. Dressings were applied. The patient tolerated the procedure well. All instrument, sponge and needle counts were correct at the end of the case. There were no complications. Dr. Romero was present for and directed the entire case. Patient was transferred to the recovery area and subsequently discharged in stable condition. The tunneled central venous catheter is stable for use for hemodialysis access. The results and description of the procedure were explained in detail to the patient in the recovery room with all of her questions answered. RADIOLOGIC SUPERVISION AND INTERPRETATION: The initial fluoroscopic evaluation showed the right internal jugular vein tunneled central venous catheter to be kinked at the apex in the right neck with a slightly high entry site above the clavicle into the right internal jugular vein. A catheter flow study was not performed. The catheter was removed over 2 stiff angled glide wires. Fluoroscopic guidance was then used to position the new catheter with the tip in the superior vena cava/right atrial junction after being advanced over the 2 stiff angled Glidewire's. Final fluoroscopic image showed the catheter to be in good position and good alignment with no pneumo- or hemothorax noted with the tip in the superior vena cava/right atrial junction. There was less kinking of the catheter in the apex of the right neck. The tunneled central venous catheter is stable for use for hemodialysis access. CONCLUSION: The initial tunneled central venous catheter was placed through a cannulation site initially used for a temporary hemodialysis catheter insertion. There was a kink noted in the catheter and the catheter was removed and a new catheter placed over 2 stiff angled glide wires with no kink in the catheter after the exchange. PLAN: Patient will attempt usage of the newly placed tunneled central venous catheter. If there is continued difficulty using the tunneled central venous catheter due to the high cannulation site in the right internal jugular vein above the clavicle the patient will require removal and placement of a new catheter through a new cannulation site in the right internal jugular vein. Flaquito Romero MD Jul 16, 2019 23:05
== END 2019-07-16 11:10 | disposition home or self-care (01) ==
LOC: M SDC 08:03
PROVIDERS: ATTEND Surgery Vascular Surgery
DX: N18.6 End stage renal disease (principal); T82.518A Breakdown (mechanical) of other cardiac and vascular devices and implants, initial encounter; I50.9 Heart failure, unspecified; I13.2 Hypertensive heart and chronic kidney disease with heart failure and with stage 5 chronic kidney disease, or end stage renal disease; I48.91 Unspecified atrial fibrillation; E11.22 Type 2 diabetes mellitus with diabetic chronic kidney disease; I25.10 Atherosclerotic heart disease of native coronary artery without angina pectoris; I27.0 Primary pulmonary hypertension; I35.0 Nonrheumatic aortic (valve) stenosis; J44.9 Chronic obstructive pulmonary disease, unspecified; G47.30 Sleep apnea, unspecified; R06.83 Snoring; R39.81 Functional urinary incontinence; E78.00 Pure hypercholesterolemia, unspecified; K21.9 Gastro-esophageal reflux disease without esophagitis; B02.9 Zoster without complications; R94.31 Abnormal electrocardiogram [ECG] [EKG]; R29.898 Other symptoms and signs involving the musculoskeletal system; M81.0 Age-related osteoporosis without current pathological fracture; Z88.1 Allergy status to other antibiotic agents; Z79.899 Other long term (current) drug therapy; Z79.4 Long term (current) use of insulin; Z79.01 Long term (current) use of anticoagulants; Z95.0 Presence of cardiac pacemaker; Z95.5 Presence of coronary angioplasty implant and graft; Z87.891 Personal history of nicotine dependence; Z78.0 Asymptomatic menopausal state

== ENCOUNTER → 2019-08-16 | Outpatient (REF) ==
[~2019-08-16] MED LIST changes: -BISO5TAB5 PO; +BISO5TAB9 PO; -LIDOCAINE 1% MDV 20ML VIAL SQ PRN; -NS 1,000 ML IV SCH
[2019-08-16 20:17] LABS: CREATININE CLEARANCE, URINE 24.5 ML/MIN (75-115); CREATININE, SERUM 1.3 MG/DL (0.6-1.0)
== END ==
PROVIDERS: ATTEND Nurse Practitioner Adult Health
DX: N18.9 Chronic kidney disease, unspecified (principal); I50.9 Heart failure, unspecified

== ENCOUNTER → 2019-08-26 | Outpatient (CLI) | payer MEDICARE, MEDICAID ==
--- NOTE | 2019-08-26 18:00 | REP ---
BILATERAL UPPER EXTREMITY DUPLEX DOPPLER ARTERIAL AND VENOUS ULTRASOUND FOR AV FISTULA MAPPING: Real-time ultrasound evaluation and duplex Doppler interrogation of bilateral upper extremity arterial and venous systems is performed to map the structures for AV fistula placement. There is no evidence of deep vein thrombosis bilaterally. On the right basilic vein measures 3 mm at the upper humerus, 4 mm at the lower humerus, 3 mm in the upper forearm and 1 mm in the lower forearm and wrist. Cephalic vein measures 4 mm at the upper and lower humerus, 2 mm throughout the forearm and 1 mm at the median cubital vein. Right upper extremity arterial structures demonstrate biphasic and triphasic wave forms with normal flow velocities, axillary artery measures 5 mm, brachial artery 4 mm and the radial and ulnar arteries measure 2 mm. On the left basilic vein measures 4 mm at the upper humerus, 2 mm at the lower humerus, 1 mm in the upper forearm and 2 mm in the lower forearm and wrist. Left cephalic vein measures 5 mm at the upper humerus, 4 mm at the lower humerus, 3 mm in the upper forearm and 2 mm in the lower forearm and wrist, Median cubital vein measures 2 mm. Left upper extremity arterial structures demonstrate biphasic and triphasic wave forms with normal flow velocities. Left axillary artery measures 5 mm, brachial artery 4 mm and radial and ulnar arteries measure 2 mm. Electronically Signed by Jose David Stern MD 08/27/2019 04:42 P
== END ==
LOC: M RAD 12:12
PROVIDERS: ATTEND Physician Assistant
DX: Z01.818 Encounter for other preprocedural examination (principal); N18.6 End stage renal disease; Z99.2 Dependence on renal dialysis
CPT/HCPCS: 80069; 82575; G0365

== ENCOUNTER → 2019-08-26 | Outpatient (REF) | payer MEDICARE, MEDICAID ==
[2019-08-26 13:33] LABS: ALBUMIN 2.4 GM/DL (3.2-5.2); CREATININE FOR GFR 1.1 MG/DL (0.55-1.30); GLOMERULAR FILTRATION RATE 51.4 (>39); PHOSPHORUS LEVEL 3.1 MG/DL (2.5-4.9); POTASSIUM SERUM 3.2 MEQ/L (3.5-5.1)
[2019-08-26 13:49] LABS: CREATININE, SERUM 1.1 MG/DL (0.6-1.0)
[2019-08-26 13:59] LABS: CREATININE, URINE 63.3 MG/DL
== END ==
PROVIDERS: ATTEND Internal Medicine
DX: N18.6 End stage renal disease (principal)

== ENCOUNTER → 2019-08-29 | Outpatient (REF) | payer MEDICARE, MEDICAID ==
[~2019-08-29] MED LIST changes: +BISO5TAB14 PO; -BISO5TAB9 PO; -DIGO0.12 PO; +DIGO0.123 PO
[2019-08-29 10:19] LABS: BASO # 0.1 10^3/uL (0.0-0.2); BASO % 1.9 % (0.0-1.0); EOS % 0.6 % (0.0-3.0); HEMATOCRIT 45.6 % (36.0-47.0); LYMPH # 0.6 10^3/uL (1.5-5.0); LYMPH % 16.7 % (24.0-44.0); MEAN CORPUSCULAR HEMOGLOBIN 33.6 pg (27.0-33.0); MEAN CORPUSCULAR HGB CONC 32.9 g/dl (32.0-36.5); MEAN CORPUSCULAR VOLUME 102.2 fl (80.0-96.0); MONO # 0.3 10^3/uL (0.0-0.8); MONO % 8.9 % (0.0-5.0); NEUTROPHILS # 2.6 10^3/uL (1.5-8.5); NEUTROPHILS % 71.6 % (36.0-66.0); PLATELET COUNT, AUTOMATED 140 10^3/uL (150-450); RED BLOOD COUNT 4.46 10^6/uL (4.00-5.40); WHITE BLOOD COUNT 3.6 10^3/uL (4.0-10.0)
[2019-08-29 11:01] LABS: ALBUMIN 2.9 GM/DL (3.2-5.2); CREATININE FOR GFR 1.11 MG/DL (0.55-1.30); GLOMERULAR FILTRATION RATE 50.9 (>39); PERCENT SATURATION 44.4 % (13.2-45.0); PHOSPHORUS LEVEL 3.3 MG/DL (2.5-4.9); POTASSIUM SERUM 4.1 MEQ/L (3.5-5.1); URIC ACID 3.9 MG/DL (2.6-6.0)
== END ==
PROVIDERS: ATTEND Internal Medicine
DX: N18.9 Chronic kidney disease, unspecified (principal)

== ENCOUNTER → 2019-09-03 | Outpatient (REF) | payer MEDICARE, MEDICAID ==
[~2019-09-03] MED LIST changes: -BISO5TAB14 PO; +BISO5TAB9 PO; +DIGO0.12 PO; -DIGO0.123 PO
== END ==
PROVIDERS: ATTEND Internal Medicine
DX: I49.9 Cardiac arrhythmia, unspecified (principal)

== ENCOUNTER → 2019-09-04 | Outpatient (REF) | payer MEDICARE, MEDICAID ==
[2019-09-04 13:06] LABS: HEMATOCRIT 41.5 % (36.0-47.0); HEMOGLOBIN 13.5 g/dl (12.0-15.5); MEAN CORPUSCULAR HEMOGLOBIN 33.1 pg (27.0-33.0); MEAN CORPUSCULAR HGB CONC 32.5 g/dl (32.0-36.5); MEAN CORPUSCULAR VOLUME 101.7 fl (80.0-96.0); PLATELET COUNT, AUTOMATED 143 10^3/uL (150-450); RED BLOOD COUNT 4.08 10^6/uL (4.00-5.40); WHITE BLOOD COUNT 2.9 10^3/uL (4.0-10.0)
[2019-09-04 13:44] LABS: ALBUMIN 2.9 GM/DL (3.2-5.2); BILIRUBIN,TOTAL 0.8 MG/DL (0.2-1.0); CALCIUM LEVEL 10.2 MG/DL (8.8-10.2); CREATININE FOR GFR 1.3 MG/DL (0.55-1.30); GLOMERULAR FILTRATION RATE 42.4 (>39); POTASSIUM SERUM 3.8 MEQ/L (3.5-5.1); TOTAL PROTEIN 6.3 GM/DL (6.4-8.2)
== END ==
PROVIDERS: ATTEND Internal Medicine
DX: R73.9 Hyperglycemia, unspecified (principal)

== ENCOUNTER → 2019-09-10 | Outpatient (POV) | payer MEDICARE, MEDICAID ==
[~2019-09-10] VITALS: Ht 162.6 cm; Wt 95.9 kg
[~2019-09-10] MED LIST changes: +LIDOCAINE 1% MDV 20ML VIAL As Ordered ONE
[2019-09-10 14:30] VITALS: BP 137/64
== END ==
LOC: M IRPOV 14:24
PROVIDERS: ATTEND Radiology Diagnostic Radiology
DX: Z45.2 Encounter for adjustment and management of vascular access device (principal); N18.9 Chronic kidney disease, unspecified

== ENCOUNTER → 2019-09-10 | Outpatient (CLI) | payer MEDICARE ==
--- NOTE | 2019-09-10 16:58 | POST-OPPD ---
Postoperative Procedure Note Date Of Procedure: Sep 10, 2019 Time Of Procedure: 16:54 PREOPERATIVE DIAGNOSIS: renal disease. permcath not needed. no longer for HD POSTOPERATIVE DIAGNOSIS: renal disease. permcath not needed. no longer for HD FINDINGS: right sided perm cath PROCEDURE: IR tunneled catheter removal. The patient was advised of the benefits, risks and alternatives procedure and informed consent was obtained. A timeout was performed with verification of the patient's name, MRN, site of procedure and type of procedure to be performed. The patient was positioned in the supine position. The indwelling PermCath was prepped and draped in the usual sterile fashion. Lidocaine was injected along the catheter tract. Using sterile Hemostats, the cuff of the catheter was dissected free and the catheter was then easily removed. Direct pressure was applied to the jugular puncture site for 10 minutes and a sterile dressings applied to the site. SURGEON: Amira ESTIMATED BLOOD LOSS: Less than 5 mL. COMPLICATIONS: None. POSTOPERATIVE CONDITION: Successful removal of right sided perm cath. Patient tolerated the procedure well. GITA HILL MD Sep 10, 2019 16:58
[2019-09-10 17:05] VITALS: BP 132/63
== END ==
LOC: M IRPRO 15:50
PROVIDERS: ATTEND Radiology Diagnostic Radiology
DX: Z79.01 Long term (current) use of anticoagulants (principal)

== ENCOUNTER → 2019-09-11 | Outpatient (REF) | payer MEDICARE, MEDICAID ==
[~2019-09-11] MED LIST changes: -DIGO0.12 PO; +DIGO0.123 PO; -LIDOCAINE 1% MDV 20ML VIAL As Ordered ONE
[2019-09-11 08:57] LABS: BASO # 0.1 10^3/uL (0.0-0.2); BASO % 2.2 % (0.0-1.0); EOS # 0.2 10^3/uL (0.0-0.5); EOS % 5.6 % (0.0-3.0); HEMATOCRIT 41.7 % (36.0-47.0); HEMOGLOBIN 13.2 g/dl (12.0-15.5); LYMPH # 0.7 10^3/uL (1.5-5.0); LYMPH % 25.6 % (24.0-44.0); MEAN CORPUSCULAR HEMOGLOBIN 33.2 pg (27.0-33.0); MEAN CORPUSCULAR HGB CONC 31.7 g/dl (32.0-36.5); MEAN CORPUSCULAR VOLUME 104.8 fl (80.0-96.0); MONO # 0.3 10^3/uL (0.0-0.8); MONO % 9.6 % (0.0-5.0); NEUTROPHILS # 1.5 10^3/uL (1.5-8.5); NEUTROPHILS % 56.6 % (36.0-66.0); PLATELET COUNT, AUTOMATED 141 10^3/uL (150-450); RED BLOOD COUNT 3.98 10^6/uL (4.00-5.40); WHITE BLOOD COUNT 2.7 10^3/uL (4.0-10.0)
[2019-09-11 09:26] LABS: ALBUMIN 2.6 GM/DL (3.2-5.2); BLOOD UREA NITROGEN 23 MG/DL (7-18); CARBON DIOXIDE LEVEL 21 MEQ/L (21-32); CHLORIDE LEVEL 112 MEQ/L (98-107); CREATININE FOR GFR 0.92 MG/DL (0.55-1.30); GLOMERULAR FILTRATION RATE > 60.0 (>39); GLUCOSE, FASTING 172 MG/DL (70-100); PHOSPHORUS LEVEL 3.6 MG/DL (2.5-4.9); SODIUM LEVEL 142 MEQ/L (136-145)
[2019-09-11 10:20] LABS: PTH INTACT 48.9 PG/ML (18.5-88.0)
[2019-09-11 16:09] LABS: APPEARANCE, URINE TURBID (CLEAR); BACTERIA, URINE AUTO 2+ (NEGATIVE); BILIRUBIN, URINE AUTO NEGATIVE (NEGATIVE); BLOOD, URINE BLOOD 2+ (NEGATIVE); COLOR, URINE AMBER (YELLOW); GLUCOSE, URINE (UA) AUTO NEGATIVE (NEGATIVE); KETONE, URINE AUTO NEGATIVE (NEGATIVE); LEUKOCYTE ESTERASE, URINE AUTO 2+ (NEGATIVE); NITRITE, URINE AUTO NEGATIVE (NEGATIVE); PROTEIN, URINE AUTO 2+ mg/dL (NEGATIVE); RBC, URINE AUTO 21 /HPF (0-3); RENAL EPITHELIAL CELLS 2 /HPF; SPECIFIC GRAVITY URINE AUTO 1.016 (1.002-1.035); SQUAMOUS EPITHELIAL CELL UR AU 1 /HPF (0-6); UROBILINOGEN, URINE AUTO 0.2 mg/dL (0.0-2.0); WBC, URINE AUTO TNTC /HPF (0-3)
== END ==
PROVIDERS: ATTEND Nurse Practitioner Adult Health
DX: I48.91 Unspecified atrial fibrillation (principal); Z79.899 Other long term (current) drug therapy; Z79.01 Long term (current) use of anticoagulants

== ENCOUNTER → 2019-09-27 | Outpatient (REF) | payer MEDICARE, MEDICAID ==
[~2019-09-27] MED LIST changes: +DIGO0.12 PO; -DIGO0.123 PO
[2019-09-27 08:10] LABS: CALCIUM LEVEL 9.9 MG/DL (8.8-10.2); CREATININE FOR GFR 1.07 MG/DL (0.55-1.30); GLOMERULAR FILTRATION RATE 53.1 (>39); POTASSIUM SERUM 3.8 MEQ/L (3.5-5.1)
== END ==
PROVIDERS: ATTEND Internal Medicine
DX: I50.9 Heart failure, unspecified (principal)

== ENCOUNTER → 2019-10-01 | Outpatient (REF) | payer MEDICARE, MEDICAID | PROVIDERS: ATTEND Internal Medicine | DX: I48.91 Unspecified atrial fibrillation (principal) ==

== ENCOUNTER → 2019-10-03 | Outpatient (REF) | payer MEDICARE, MEDICAID ==
[2019-10-02 12:46] LABS: BASO % 0.8 % (0.0-1.0); EOS # 0.1 10^3/uL (0.0-0.5); EOS % 1.2 % (0.0-3.0); HEMATOCRIT 37.3 % (36.0-47.0); HEMOGLOBIN 11.4 g/dl (12.0-15.5); LYMPH # 0.4 10^3/uL (1.5-5.0); LYMPH % 7.3 % (24.0-44.0); MEAN CORPUSCULAR HEMOGLOBIN 31.8 pg (27.0-33.0); MEAN CORPUSCULAR HGB CONC 30.6 g/dl (32.0-36.5); MEAN CORPUSCULAR VOLUME 104.2 fl (80.0-96.0); MONO # 0.4 10^3/uL (0.0-0.8); MONO % 8.3 % (0.0-5.0); NEUTROPHILS # 4.3 10^3/uL (1.5-8.5); NEUTROPHILS % 81.8 % (36.0-66.0); PLATELET COUNT, AUTOMATED 154 10^3/uL (150-450); RED BLOOD COUNT 3.58 10^6/uL (4.00-5.40); WHITE BLOOD COUNT 5.2 10^3/uL (4.0-10.0)
[2019-10-02 13:20] LABS: ALBUMIN 2.2 GM/DL (3.2-5.2); CALCIUM LEVEL 8.9 MG/DL (8.8-10.2); CREATININE FOR GFR 1.87 MG/DL (0.55-1.30); GLOMERULAR FILTRATION RATE 27.9 (>39); MAGNESIUM LEVEL 2.2 MG/DL (1.8-2.4); POTASSIUM SERUM 3.9 MEQ/L (3.5-5.1)
== END ==
PROVIDERS: ATTEND Internal Medicine
DX: N18.9 Chronic kidney disease, unspecified (principal)

== ENCOUNTER → 2019-10-03 | Outpatient (REF) | payer MEDICARE, MEDICAID ==
--- NOTE | 2019-10-03 17:09 | REPPI ---
Portable chest x-ray: Single view. History: CHF. Comparison chest x-ray June 24, 2019. Findings: A pacemaker is seen in a markedly enlarged heart via the left side as before. There is plate-like atelectasis in the right base above the somewhat elevated right hemidiaphragm. The plate-like atelectasis was not apparent previously. Pulmonary vasculature is cephalized and congested. No lizett pleural effusion. Impression: Marked cardiomegaly with pacemaker. Discoid atelectasis right base. Pulmonary vascular congestion and cephalization. Electronically Signed by Chi Kirby MD 10/03/2019 02:07 P
== END ==
PROVIDERS: ATTEND Internal Medicine
DX: I50.9 Heart failure, unspecified (principal)

== ENCOUNTER → 2019-10-04 | Outpatient (REF) | payer MEDICARE, MEDICAID ==
[2019-10-04 14:06] LABS: HEMATOCRIT 36.5 % (36.0-47.0); HEMOGLOBIN 11.1 g/dl (12.0-15.5); MEAN CORPUSCULAR HEMOGLOBIN 30.7 pg (27.0-33.0); MEAN CORPUSCULAR HGB CONC 30.4 g/dl (32.0-36.5); MEAN CORPUSCULAR VOLUME 101.1 fl (80.0-96.0); PLATELET COUNT, AUTOMATED 168 10^3/uL (150-450); RED BLOOD COUNT 3.61 10^6/uL (4.00-5.40); WHITE BLOOD COUNT 3.4 10^3/uL (4.0-10.0)
== END ==
PROVIDERS: ATTEND Internal Medicine
DX: R61 Generalized hyperhidrosis (principal)

== ENCOUNTER → 2019-10-07 | Outpatient (REF) | payer MEDICARE, MEDICAID ==
[2019-10-07 10:51] LABS: BASO % 0.5 % (0.0-1.0); EOS # 0.1 10^3/uL (0.0-0.5); EOS % 1.1 % (0.0-3.0); HEMATOCRIT 41.1 % (36.0-47.0); HEMOGLOBIN 12.5 g/dl (12.0-15.5); LYMPH # 0.8 10^3/uL (1.5-5.0); LYMPH % 13.8 % (24.0-44.0); MEAN CORPUSCULAR HEMOGLOBIN 31.4 pg (27.0-33.0); MEAN CORPUSCULAR HGB CONC 30.4 g/dl (32.0-36.5); MEAN CORPUSCULAR VOLUME 103.3 fl (80.0-96.0); MONO # 0.3 10^3/uL (0.0-0.8); MONO % 5.5 % (0.0-5.0); NEUTROPHILS # 4.3 10^3/uL (1.5-8.5); NEUTROPHILS % 78.2 % (36.0-66.0); PLATELET COUNT, AUTOMATED 232 10^3/uL (150-450); RED BLOOD COUNT 3.98 10^6/uL (4.00-5.40); WHITE BLOOD COUNT 5.5 10^3/uL (4.0-10.0)
[2019-10-07 11:16] LABS: ALBUMIN 2.5 GM/DL (3.2-5.2); CALCIUM LEVEL 10.2 MG/DL (8.8-10.2); CREATININE FOR GFR 1.1 MG/DL (0.55-1.30); GLOMERULAR FILTRATION RATE 51.4 (>39); POTASSIUM SERUM 3.7 MEQ/L (3.5-5.1)
== END ==
PROVIDERS: ATTEND Internal Medicine
DX: I50.9 Heart failure, unspecified (principal); N18.9 Chronic kidney disease, unspecified

== ENCOUNTER → 2019-10-10 | Outpatient (REF) | payer MEDICARE, MEDICAID ==
--- NOTE | 2019-10-10 12:17 | REPPI ---
KUB: Two views. History: Constipation. Findings: Portably obtained films of the abdomen demonstrates cardiomegaly, pacemaker. Bowel gas pattern is unremarkable. There is a irregular 12 mm calcific density in the left mid abdomen which could be a urinary tract calculus. There are two smaller calcifications superimposed on the right kidney. There is no evidence of obstipation or constipation. No large or small bowel dilation is seen. Impression: Possible urinary tract calculi intrarenal bilateral. Normal bowel gas pattern. Electronically Signed by Chi Kirby MD 10/10/2019 12:30 P
== END ==
PROVIDERS: ATTEND Internal Medicine
DX: K59.00 Constipation, unspecified (principal)

== ENCOUNTER → 2019-11-06 | Outpatient (REF) ==
[~2019-11-06] MED LIST changes: -DIGO0.12 PO; +DIGO0.123 PO
[2019-11-06 10:30] LABS: ALBUMIN 2.9 GM/DL (3.2-5.2); CALCIUM LEVEL 9.9 MG/DL (8.8-10.2); CREATININE FOR GFR 1.39 MG/DL (0.55-1.30); DIGOXIN LEVEL 0.8 NG/ML (0.5-2.0); GLOMERULAR FILTRATION RATE 39.2 (>39); PHOSPHORUS LEVEL 3.7 MG/DL (2.5-4.9); POTASSIUM SERUM 4.2 MEQ/L (3.5-5.1)
[2019-11-06 11:35] LABS: PTH INTACT 96.4 PG/ML (18.5-88.0)
== END ==
PROVIDERS: ATTEND Nurse Practitioner Adult Health
DX: I48.91 Unspecified atrial fibrillation (principal)

== ENCOUNTER → 2019-11-07 | Outpatient (REF) ==
[2019-11-07 17:18] LABS: AMORPHOUS SEDIMENT SMALL (NEGATIVE); APPEARANCE, URINE CLOUDY (CLEAR); BACTERIA, URINE AUTO NEGATIVE (NEGATIVE); BILIRUBIN, URINE AUTO NEGATIVE (NEGATIVE); BLOOD, URINE BLOOD 1+ (NEGATIVE); COLOR, URINE YELLOW (YELLOW); GLUCOSE, URINE (UA) AUTO NEGATIVE (NEGATIVE); KETONE, URINE AUTO NEGATIVE (NEGATIVE); LEUKOCYTE ESTERASE, URINE AUTO 3+ (NEGATIVE); NITRITE, URINE AUTO NEGATIVE (NEGATIVE); PROTEIN, URINE AUTO 1+ mg/dL (NEGATIVE); RBC, URINE AUTO 45 /HPF (0-3); SPECIFIC GRAVITY URINE AUTO 1.009 (1.002-1.035); SQUAMOUS EPITHELIAL CELL UR AU 1 /HPF (0-6); TRANSITIONAL EPITHELIAL AUTO 4 /HPF; UROBILINOGEN, URINE AUTO 0.2 mg/dL (0.0-2.0); WBC, URINE AUTO 151 /HPF (0-3)
== END ==
PROVIDERS: ATTEND Internal Medicine
DX: N18.9 Chronic kidney disease, unspecified (principal)

== ENCOUNTER → 2019-11-28 | Outpatient (REF) | payer MEDICARE, MEDICAID ==
[2019-11-28 10:19] LABS: CALCIUM LEVEL 10.3 MG/DL (8.8-10.2); CREATININE FOR GFR 1.26 MG/DL (0.55-1.30); POTASSIUM SERUM 4.5 MEQ/L (3.5-5.1)
== END ==
PROVIDERS: ATTEND Nurse Practitioner Adult Health
DX: I50.9 Heart failure, unspecified (principal); N18.3 Chronic kidney disease, stage 3 (moderate)

== ENCOUNTER → 2019-12-06 | Outpatient (REF) | payer MEDICARE, MEDICAID ==
[~2019-12-06] MED LIST changes: +BISO5TAB14 PO; -BISO5TAB9 PO
== END ==
PROVIDERS: ATTEND Nurse Practitioner Adult Health
DX: N18.3 Chronic kidney disease, stage 3 (moderate) (principal)

== ENCOUNTER → 2019-12-20 | Outpatient (REF) | payer MEDICARE, MEDICAID | PROVIDERS: ATTEND Internal Medicine | DX: I48.91 Unspecified atrial fibrillation (principal) ==

== ENCOUNTER → 2019-12-31 | Outpatient (REF) | payer MEDICARE, MEDICAID | PROVIDERS: ATTEND Nurse Practitioner Adult Health | DX: I48.91 Unspecified atrial fibrillation (principal); Z79.899 Other long term (current) drug therapy; Z79.01 Long term (current) use of anticoagulants ==

== ENCOUNTER → 2020-01-07 | Outpatient (REF) | payer MEDICARE, MEDICAID ==
[2020-01-07 12:02] LABS: BASO # 0.1 10^3/uL (0.0-0.2); BASO % 1.6 % (0.0-1.0); EOS # 0.2 10^3/uL (0.0-0.5); EOS % 3.6 % (0.0-3.0); HEMOGLOBIN 12.5 g/dl (12.0-15.5); LYMPH # 0.9 10^3/uL (1.5-5.0); MEAN CORPUSCULAR HEMOGLOBIN 29.9 pg (27.0-33.0); MEAN CORPUSCULAR HGB CONC 31.3 g/dl (32.0-36.5); MEAN CORPUSCULAR VOLUME 95.7 fl (80.0-96.0); MONO # 0.5 10^3/uL (0.0-0.8); MONO % 10.1 % (0.0-5.0); NEUTROPHILS # 3.4 10^3/uL (1.5-8.5); NEUTROPHILS % 66.3 % (36.0-66.0); PLATELET COUNT, AUTOMATED 193 10^3/uL (150-450); RED BLOOD COUNT 4.18 10^6/uL (4.00-5.40); WHITE BLOOD COUNT 5.1 10^3/uL (4.0-10.0)
[2020-01-07 12:57] LABS: ALBUMIN 2.7 GM/DL (3.2-5.2); CALCIUM LEVEL 9.6 MG/DL (8.8-10.2); CREATININE FOR GFR 1.19 MG/DL (0.55-1.30); DIGOXIN LEVEL 1.5 NG/ML (0.5-2.0); GLOMERULAR FILTRATION RATE 46.9 (>39); MAGNESIUM LEVEL 1.9 MG/DL (1.8-2.4); PHOSPHORUS LEVEL 2.9 MG/DL (2.5-4.9); POTASSIUM SERUM 4.6 MEQ/L (3.5-5.1)
[2020-01-07 14:26] LABS: PTH INTACT 79.2 PG/ML (18.5-88.0); TOTAL 25(OH) VITAMIN D 34.1 NG/ML (30.0-100.0)
[2020-01-07 16:12] LABS: APPEARANCE, URINE TURBID (CLEAR); BACTERIA, URINE AUTO 3+ (NEGATIVE); BILIRUBIN, URINE AUTO NEGATIVE (NEGATIVE); BLOOD, URINE BLOOD 1+ (NEGATIVE); COLOR, URINE AMBER (YELLOW); GLUCOSE, URINE (UA) AUTO NEGATIVE (NEGATIVE); KETONE, URINE AUTO NEGATIVE (NEGATIVE); LEUKOCYTE ESTERASE, URINE AUTO 3+ (NEGATIVE); NITRITE, URINE AUTO NEGATIVE (NEGATIVE); PROTEIN, URINE AUTO 1+ mg/dL (NEGATIVE); RBC, URINE AUTO 39 /HPF (0-3); SQUAMOUS EPITHELIAL CELL UR AU 9 /HPF (0-6); UROBILINOGEN, URINE AUTO 0.2 mg/dL (0.0-2.0); WBC, URINE AUTO TNTC /HPF (0-3)
== END ==
PROVIDERS: ATTEND Nurse Practitioner Adult Health
DX: N18.3 Chronic kidney disease, stage 3 (moderate) (principal)

== ENCOUNTER → 2020-01-28 | Outpatient (REF) | payer MEDICARE, MEDICAID | PROVIDERS: ATTEND Nurse Practitioner Adult Health | DX: I48.91 Unspecified atrial fibrillation (principal) ==

== ENCOUNTER → 2020-02-10 | Outpatient (REF) | payer MEDICARE, MEDICAID ==
[2020-02-10 11:27] LABS: CREATININE FOR GFR 1.09 MG/DL (0.55-1.30); POTASSIUM SERUM 4.3 MEQ/L (3.5-5.1)
== END ==
PROVIDERS: ATTEND Internal Medicine
DX: Z79.899 Other long term (current) drug therapy (principal)

== ENCOUNTER → 2020-03-02 | Outpatient (REF) | payer MEDICARE, MEDICAID | PROVIDERS: ATTEND Nurse Practitioner Adult Health | DX: I48.91 Unspecified atrial fibrillation (principal) ==

== ENCOUNTER → 2020-04-01 | Outpatient (REF) | PROVIDERS: ATTEND Nurse Practitioner Adult Health | DX: I48.91 Unspecified atrial fibrillation (principal) ==

== ENCOUNTER → 2020-04-07 | Outpatient (REF) | payer MEDICARE, MEDICAID ==
[~2020-04-07] MED LIST changes: -LISI-1046 PO; +LISI2.5T2 PO
[2020-04-07 10:56] LABS: HEMATOCRIT 42.6 % (36.0-47.0); HEMOGLOBIN 13.9 g/dl (12.0-15.5); MEAN CORPUSCULAR HEMOGLOBIN 30.5 pg (27.0-33.0); MEAN CORPUSCULAR HGB CONC 32.6 g/dl (32.0-36.5); MEAN CORPUSCULAR VOLUME 93.6 fl (80.0-96.0); PLATELET COUNT, AUTOMATED 155 10^3/uL (150-450); RED BLOOD COUNT 4.55 10^6/uL (4.00-5.40); WHITE BLOOD COUNT 5.1 10^3/uL (4.0-10.0)
[2020-04-07 11:25] LABS: ALBUMIN 2.8 GM/DL (3.2-5.2); CALCIUM LEVEL 9.8 MG/DL (8.8-10.2); CREATININE FOR GFR 1.31 MG/DL (0.55-1.30); GLOMERULAR FILTRATION RATE 41.9 (>39); MAGNESIUM LEVEL 2.3 MG/DL (1.8-2.4); PHOSPHORUS LEVEL 3.1 MG/DL (2.5-4.9); POTASSIUM SERUM 4.5 MEQ/L (3.5-5.1)
[2020-04-07 11:53] LABS: TOTAL 25(OH) VITAMIN D 39.9 NG/ML (30.0-100.0)
== END ==
PROVIDERS: ATTEND Nurse Practitioner Adult Health
DX: E21.3 Hyperparathyroidism, unspecified (principal)

== ENCOUNTER → 2020-04-08 | Outpatient (REF) | payer MEDICARE, MEDICAID ==
[2020-04-08 13:58] LABS: APPEARANCE, URINE CLOUDY (CLEAR); BACTERIA, URINE AUTO 2+ (NEGATIVE); BILIRUBIN, URINE AUTO NEGATIVE (NEGATIVE); BLOOD, URINE BLOOD NEGATIVE (NEGATIVE); COLOR, URINE YELLOW (YELLOW); GLUCOSE, URINE (UA) AUTO 3+ mg/dL (NEGATIVE); KETONE, URINE AUTO NEGATIVE (NEGATIVE); LEUKOCYTE ESTERASE, URINE AUTO 3+ (NEGATIVE); NITRITE, URINE AUTO NEGATIVE (NEGATIVE); PROTEIN, URINE AUTO NEGATIVE (NEGATIVE); RBC, URINE AUTO 4 /HPF (0-3); SPECIFIC GRAVITY URINE AUTO 1.006 (1.002-1.035); SQUAMOUS EPITHELIAL CELL UR AU 2 /HPF (0-6); UROBILINOGEN, URINE AUTO 0.2 mg/dL (0.0-2.0); WBC, URINE AUTO TNTC /HPF (0-3)
== END ==
PROVIDERS: ATTEND Nurse Practitioner Adult Health
DX: N18.9 Chronic kidney disease, unspecified (principal)

== ENCOUNTER → 2020-04-13 | Outpatient (REF) | PROVIDERS: ATTEND Internal Medicine | DX: Z03.818 Encounter for observation for suspected exposure to other biological agents ruled out (principal) ==

== ENCOUNTER → 2020-04-30 | Outpatient (REF) | payer MEDICARE, MEDICAID | PROVIDERS: ATTEND Internal Medicine | DX: I48.91 Unspecified atrial fibrillation (principal) ==

== ENCOUNTER → 2020-05-08 | Outpatient (REF) | payer MEDICARE, MEDICAID ==
[2020-05-08 13:01] LABS: HEMOGLOBIN A1c 8.2 %
== END ==
PROVIDERS: ATTEND Internal Medicine
DX: E11.9 Type 2 diabetes mellitus without complications (principal)

== ENCOUNTER → 2020-06-04 | Outpatient (REF) | payer MEDICARE, MEDICAID | PROVIDERS: ATTEND Internal Medicine | DX: I48.91 Unspecified atrial fibrillation (principal) ==

== ENCOUNTER → 2020-06-30 | Outpatient (REF) | payer MEDICARE, MEDICAID ==
[~2020-06-30] MED LIST changes: +PANT40TA29 PO; -PANT40TA3 PO
== END ==
PROVIDERS: ATTEND Internal Medicine
DX: I48.20 Chronic atrial fibrillation, unspecified (principal); Z79.01 Long term (current) use of anticoagulants

== ENCOUNTER → 2020-07-03 | Outpatient (REF) | payer MEDICARE, MEDICAID ==
[2020-08-14 13:52] LABS: APPEARANCE, URINE TURBID (CLEAR); BACTERIA, URINE AUTO 2+ (NEGATIVE); BILIRUBIN, URINE AUTO NEGATIVE (NEGATIVE); BLOOD, URINE BLOOD 1+ (NEGATIVE); COLOR, URINE YELLOW (YELLOW); GLUCOSE, URINE (UA) AUTO 2+ mg/dL (NEGATIVE); KETONE, URINE AUTO NEGATIVE (NEGATIVE); LEUKOCYTE ESTERASE, URINE AUTO 3+ (NEGATIVE); NITRITE, URINE AUTO NEGATIVE (NEGATIVE); PROTEIN, URINE AUTO NEGATIVE (NEGATIVE); RBC, URINE AUTO 54 /HPF (0-3); RENAL EPITHELIAL CELLS 2 /HPF; SPECIFIC GRAVITY URINE AUTO 1.008 (1.002-1.035); SQUAMOUS EPITHELIAL CELL UR AU 50 /HPF (0-6); UROBILINOGEN, URINE AUTO 0.2 mg/dL (0.0-2.0); WBC, URINE AUTO TNTC /HPF (0-3)
== END ==
PROVIDERS: ATTEND Internal Medicine
DX: N18.6 End stage renal disease (principal)

== ENCOUNTER → 2020-07-08 | Outpatient (REF) | payer MEDICARE, MEDICAID ==
[2020-09-15 12:59] LABS: HEMATOCRIT 41.6 % (36.0-47.0); HEMOGLOBIN 13.5 g/dl (12.0-15.5); MEAN CORPUSCULAR HEMOGLOBIN 29.7 pg (27.0-33.0); MEAN CORPUSCULAR HGB CONC 32.5 g/dl (32.0-36.5); MEAN CORPUSCULAR VOLUME 91.6 fl (80.0-96.0); PLATELET COUNT, AUTOMATED 139 10^3/uL (150-450); RED BLOOD COUNT 4.54 10^6/uL (4.00-5.40); WHITE BLOOD COUNT 6.3 10^3/uL (4.0-10.0)
[2020-09-30 09:04] LABS: ALBUMIN 2.9 GM/DL (3.2-5.2); CALCIUM LEVEL 10.2 MG/DL (8.8-10.2); CREATININE FOR GFR 1.25 MG/DL (0.55-1.30); GLOMERULAR FILTRATION RATE 44.2 (>39); MAGNESIUM LEVEL 2.1 MG/DL (1.8-2.4); PHOSPHORUS LEVEL 3.2 MG/DL (2.5-4.9); POTASSIUM SERUM 4.2 MEQ/L (3.5-5.1); PTH INTACT 108.2 PG/ML (18.5-88.0)
== END ==
PROVIDERS: ATTEND Internal Medicine
DX: N18.6 End stage renal disease (principal)

== ENCOUNTER → 2020-08-06 | Outpatient (REF) | payer MEDICARE, MEDICAID | PROVIDERS: ATTEND Nurse Practitioner Adult Health | DX: I48.91 Unspecified atrial fibrillation (principal) ==

== ENCOUNTER → 2020-08-19 | Outpatient (REF) | payer MEDICARE, MEDICAID ==
[2020-08-19 16:08] LABS: HEMATOCRIT 41.3 % (36.0-47.0); HEMOGLOBIN 13.2 g/dl (12.0-15.5); MEAN CORPUSCULAR HEMOGLOBIN 28.8 pg (27.0-33.0); MEAN CORPUSCULAR VOLUME 90.2 fl (80.0-96.0); PLATELET COUNT, AUTOMATED 231 10^3/uL (150-450); RED BLOOD COUNT 4.58 10^6/uL (4.00-5.40); WHITE BLOOD COUNT 10.9 10^3/uL (4.0-10.0)
[2020-08-19 16:36] LABS: CREATININE FOR GFR 1.27 MG/DL (0.55-1.30); GLOMERULAR FILTRATION RATE 43.4 (>39); POTASSIUM SERUM 4.5 MEQ/L (3.5-5.1)
[2020-08-19 16:37] LABS: ALBUMIN 2.6 GM/DL (3.2-5.2); BILIRUBIN,TOTAL 0.9 MG/DL (0.2-1.0); CALCIUM LEVEL 9.9 MG/DL (8.8-10.2); TOTAL PROTEIN 6.6 GM/DL (6.4-8.2)
[2020-08-19 18:41] LABS: APPEARANCE, URINE TURBID (CLEAR); BACTERIA, URINE AUTO 1+ (NEGATIVE); BILIRUBIN, URINE AUTO NEGATIVE (NEGATIVE); BLOOD, URINE BLOOD 1+ (NEGATIVE); COLOR, URINE YELLOW (YELLOW); GLUCOSE, URINE (UA) AUTO 1+ mg/dL (NEGATIVE); KETONE, URINE AUTO NEGATIVE (NEGATIVE); LEUKOCYTE ESTERASE, URINE AUTO 3+ (NEGATIVE); NITRITE, URINE AUTO NEGATIVE (NEGATIVE); PROTEIN, URINE AUTO NEGATIVE (NEGATIVE); RBC, URINE AUTO 6 /HPF (0-3); SPECIFIC GRAVITY URINE AUTO 1.008 (1.002-1.035); SQUAMOUS EPITHELIAL CELL UR AU 5 /HPF (0-6); UROBILINOGEN, URINE AUTO 0.2 mg/dL (0.0-2.0); WBC, URINE AUTO TNTC /HPF (0-3)
--- NOTE | 2020-08-27 13:12 | REPPI ---
PORTABLE ABDOMEN KUB HISTORY: Nausea. COMPARISON: 10/10/2019. TECHNIQUE: Two portable AP views of the abdomen and pelvis are performed. FINDINGS: There is moderate air in the stomach. There is moderate air and fecal material scattered throughout the colon. There is no evidence of small bowel obstruction. Scattered vascular calcifications are present. There are degenerative changes of the spine. IMPRESSION: Moderate fecal retention. No evidence of small bowel obstruction. MTDD
== END ==
PROVIDERS: ATTEND Internal Medicine
DX: K56.41 Fecal impaction (principal); Z79.899 Other long term (current) drug therapy

== ENCOUNTER → 2020-08-20 | Outpatient (CLI) | payer MEDICARE, MEDICAID ==
[~2020-08-20] MED LIST changes: +ISOVUE-370 76% 100ML VIAL As Ordered ONE
--- NOTE | 2020-08-20 17:30 | REPVR ---
PROCEDURE INFORMATION: Exam: CT Abdomen And Pelvis With Contrast Exam date and time: 08/20/2020 4:57 PM Age: 75 years old Clinical indication: Abdominal pain; Flank; Right; Additional info: Right anterior flank pain, right posterior flank p TECHNIQUE: Imaging protocol: Computed tomography of the abdomen and pelvis with intravenous contrast. Radiation optimization: All CT scans at this facility use at least one of these dose optimization techniques: automated exposure control; mA and/or kV adjustment per patient size (includes targeted exams where dose is matched to clinical indication); or iterative reconstruction. Contrast material: ISOVUE 370; Contrast volume: 100 ml; Contrast route: INTRAVENOUS (IV); COMPARISON: CT ABD PELVIS W/O CONTRAST 06/29/2019 12:54 PM FINDINGS: Lungs: Right lower lobe pulmonary partial atelectasis. Pleural space: Small right pleural effusion. Minimal left pleural effusion. Heart: Small pericardial effusion. Dense mitral annular calcification is present. Cardiac left ventricular chorda tendineae calcification. Liver: Normal. No mass. Gallbladder and bile ducts: Normal. No calcified stones. No ductal dilation. Pancreas: Severe pancreatic atrophy. Spleen: The spleen is borderline enlarged measuring 13.1 cm transversely, 14.2 cm craniocaudal. Adrenals: Normal. No mass. Kidneys and ureters: Left renal calculi (3), the largest in the posterior lower kidney measuring 12.2 mm. Right renal calculi (2), the largest in the posterior upper pole measuring 4.5 mm. No evidence of obstructive uropathy. Moderate bilateral renal cortical scarring. Stomach and bowel: Sigmoid colonic diverticula are present without evidence of diverticulitis. Appendix: The vermiform appendix is normal. Intraperitoneal space: Trace posterior pelvic peritoneal fluid. Vasculature: ThisMild aortic atherosclerotic calcification without aneurysm. The iliac arteries show moderate bilateral atherosclerotic calcifications without evidence of aneurysm. Moderate aortic valvular calcification is present. Left main, LAD, LCx and RCA calcified coronary atherosclerosis. Lymph nodes: No enlarged lymph nodes. Urinary bladder: Unremarkable as visualized. Reproductive: Endometrial cavity gas. Bones/joints: Diffuse osteopenia. L5-S1 spondylosis with bilateral neural foraminal stenosis. Bilateral lower lumbar facet primary osteoarthritis. There is degenerative disc disease at multiple lumbar spine disk levels. Severe L1-L2 spondylosis. Mild L3-L4 retrolisthesis with mild spondylosis. Mild L2-L3 and L4-L5 spondylosis. Soft tissues: Unremarkable. IMPRESSION: 1. Endometrial cavity gas. Clinical correlation (procedural history?) is recommended. 2. Bilateral renal calyceal lithiasis. 3. Moderate bilateral renal cortical scarring. 4. Borderline splenomegaly. 5. Diverticulosis. 6. Small pericardial effusion. 7. Coronary atherosclerosis. 8. Small right pleural effusion. 9. Minimal left pleural effusion. Electronically signed by: Sanford Harding On 08/20/2020 17:30:37 PM
== END ==
LOC: M RAD 15:59
PROVIDERS: ATTEND Nurse Practitioner Adult Health
DX: R10.9 Unspecified abdominal pain (principal); J90 Pleural effusion, not elsewhere classified; N20.0 Calculus of kidney
CPT/HCPCS: 74177; Q9967

== ENCOUNTER → 2020-08-21 | Outpatient (REF) | payer MEDICARE, MEDICAID ==
[~2020-08-21] MED LIST changes: -ISOVUE-370 76% 100ML VIAL As Ordered ONE
[2020-08-21 13:12] LABS: HEMATOCRIT 43.6 % (36.0-47.0); HEMOGLOBIN 13.8 g/dl (12.0-15.5); MEAN CORPUSCULAR HEMOGLOBIN 28.8 pg (27.0-33.0); MEAN CORPUSCULAR HGB CONC 31.7 g/dl (32.0-36.5); PLATELET COUNT, AUTOMATED 234 10^3/uL (150-450); RED BLOOD COUNT 4.79 10^6/uL (4.00-5.40)
[2020-08-21 13:34] LABS: ALBUMIN 2.6 GM/DL (3.2-5.2); BILIRUBIN,TOTAL 0.6 MG/DL (0.2-1.0); CALCIUM LEVEL 10.4 MG/DL (8.8-10.2); CREATININE FOR GFR 1.13 MG/DL (0.55-1.30); GLOMERULAR FILTRATION RATE 49.7 (>39); POTASSIUM SERUM 3.8 MEQ/L (3.5-5.1); TOTAL PROTEIN 6.4 GM/DL (6.4-8.2)
== END ==
PROVIDERS: ATTEND Internal Medicine
DX: K59.00 Constipation, unspecified (principal); R52 Pain, unspecified

== ENCOUNTER → 2020-09-03 | Outpatient (REF) | payer MEDICARE, MEDICAID | PROVIDERS: ATTEND Nurse Practitioner Adult Health | DX: I48.91 Unspecified atrial fibrillation (principal) ==

== ENCOUNTER → 2020-10-01 | Outpatient (REF) | payer MEDICARE, MEDICAID | PROVIDERS: ATTEND Nurse Practitioner Adult Health | DX: I48.91 Unspecified atrial fibrillation (principal) ==

== ENCOUNTER → 2020-10-06 | Outpatient (REF) ==
[2020-10-06 10:43] LABS: BASO # 0.1 10^3/uL (0.0-0.2); BASO % 0.8 % (0.0-1.0); EOS # 0.2 10^3/uL (0.0-0.5); EOS % 2.7 % (0.0-3.0); HEMATOCRIT 39.1 % (36.0-47.0); LYMPH # 0.8 10^3/uL (1.5-5.0); LYMPH % 13.8 % (24.0-44.0); MEAN CORPUSCULAR HGB CONC 30.7 g/dl (32.0-36.5); MEAN CORPUSCULAR VOLUME 91.4 fl (80.0-96.0); MONO # 0.5 10^3/uL (0.0-0.8); MONO % 7.6 % (0.0-5.0); NEUTROPHILS # 4.4 10^3/uL (1.5-8.5); NEUTROPHILS % 74.4 % (36.0-66.0); PLATELET COUNT, AUTOMATED 192 10^3/uL (150-450); RED BLOOD COUNT 4.28 10^6/uL (4.00-5.40); WHITE BLOOD COUNT 5.9 10^3/uL (4.0-10.0)
[2020-10-06 11:15] LABS: ALBUMIN 2.7 GM/DL (3.2-5.2); CALCIUM LEVEL 9.2 MG/DL (8.8-10.2); CREATININE FOR GFR 1.96 MG/DL (0.55-1.30); GLOMERULAR FILTRATION RATE 26.3 (>39); MAGNESIUM LEVEL 2.1 MG/DL (1.8-2.4); PHOSPHORUS LEVEL 3.4 MG/DL (2.5-4.9); POTASSIUM SERUM 4.9 MEQ/L (3.5-5.1); PTH INTACT 281.4 PG/ML (18.5-88.0)
== END ==
PROVIDERS: ATTEND Nurse Practitioner Adult Health
DX: N19 Unspecified kidney failure (principal)

== ENCOUNTER → 2020-10-07 | Outpatient (REF) | payer MEDICARE, MEDICAID ==
[2020-10-07 17:58] LABS: APPEARANCE, URINE CLOUDY (CLEAR); BACTERIA, URINE AUTO 1+ (NEGATIVE); BILIRUBIN, URINE AUTO NEGATIVE (NEGATIVE); BLOOD, URINE BLOOD 1+ (NEGATIVE); COLOR, URINE YELLOW (YELLOW); GLUCOSE, URINE (UA) AUTO 3+ mg/dL (NEGATIVE); KETONE, URINE AUTO NEGATIVE (NEGATIVE); LEUKOCYTE ESTERASE, URINE AUTO 3+ (NEGATIVE); MUCUS, URINE SMALL (NEGATIVE); NITRITE, URINE AUTO NEGATIVE (NEGATIVE); PROTEIN, URINE AUTO NEGATIVE (NEGATIVE); RBC, URINE AUTO 5 /HPF (0-3); SPECIFIC GRAVITY URINE AUTO 1.007 (1.002-1.035); SQUAMOUS EPITHELIAL CELL UR AU 5 /HPF (0-6); UROBILINOGEN, URINE AUTO 0.2 mg/dL (0.0-2.0); WBC, URINE AUTO 165 /HPF (0-3)
== END ==
PROVIDERS: ATTEND Internal Medicine
DX: N19 Unspecified kidney failure (principal)

== ENCOUNTER → 2020-10-08 | Outpatient (REF) | PROVIDERS: ATTEND Internal Medicine | DX: Z20.828 Contact with and (suspected) exposure to other viral communicable diseases (principal) ==

== ENCOUNTER → 2020-10-15 | Outpatient (REF) | payer MEDICARE, MEDICAID ==
[~2020-10-15] MED LIST changes: -MAG400TA PO; +MAGN400T35 PO
== END ==
LOC: EDSTATUS 11-24 13:47
PROVIDERS: ATTEND Internal Medicine
DX: Z20.828 Contact with and (suspected) exposure to other viral communicable diseases (principal)

== ENCOUNTER → 2020-10-21 | Outpatient (REF) | payer MEDICARE, MEDICAID | PROVIDERS: ATTEND Internal Medicine | DX: Z20.828 Contact with and (suspected) exposure to other viral communicable diseases (principal) ==

== ENCOUNTER → 2020-10-28 | Outpatient (REF) | payer MEDICARE, MEDICAID ==
[~2020-10-28] MED LIST changes: +MAG400TA PO; -MAGN400T35 PO
== END ==
PROVIDERS: ATTEND Nurse Practitioner Adult Health
DX: I48.91 Unspecified atrial fibrillation (principal); Z79.899 Other long term (current) drug therapy

== ENCOUNTER → 2020-11-08 | Outpatient (REF) | payer MEDICARE, MEDICAID | PROVIDERS: ATTEND Internal Medicine | DX: Z20.828 Contact with and (suspected) exposure to other viral communicable diseases (principal) ==

== ENCOUNTER → 2020-11-12 | Outpatient (REF) | payer MEDICARE, MEDICAID ==
[2020-11-12 15:01] LABS: INFLUENZA A AMPLIFICATION NEGATIVE (NEGATIVE); INFLUENZA B AMPLIFICATION NEGATIVE (NEGATIVE)
== END ==
PROVIDERS: ATTEND Internal Medicine
DX: Z20.828 Contact with and (suspected) exposure to other viral communicable diseases (principal)
CPT/HCPCS: 87502; U0003

== ENCOUNTER → 2020-11-18 | Outpatient (REF) | payer MEDICARE, MEDICAID | PROVIDERS: ATTEND Internal Medicine | DX: Z20.828 Contact with and (suspected) exposure to other viral communicable diseases (principal) ==

== ENCOUNTER → 2020-11-24 | Outpatient (REF) | payer MEDICARE, MEDICAID | PROVIDERS: ATTEND Internal Medicine | DX: Z20.828 Contact with and (suspected) exposure to other viral communicable diseases (principal) ==

== ENCOUNTER → 2020-11-30 | Outpatient (REF) | payer MEDICARE, MEDICAID | PROVIDERS: ATTEND Internal Medicine | DX: Z20.822 Contact with and (suspected) exposure to COVID-19 (principal) ==

== ENCOUNTER → 2020-12-04 | Outpatient (REF) | payer MEDICARE, MEDICAID | PROVIDERS: ATTEND Internal Medicine | DX: Z20.822 Contact with and (suspected) exposure to COVID-19 (principal) ==

== ENCOUNTER → 2020-12-08 | Outpatient (REF) | payer MEDICARE, MEDICAID ==
[2020-12-08 10:29] LABS: BASO # 0.1 10^3/uL (0.0-0.2); BASO % 1.3 % (0.0-1.0); EOS # 0.1 10^3/uL (0.0-0.5); HEMOGLOBIN 13.4 g/dl (12.0-15.5); LYMPH # 1.1 10^3/uL (1.5-5.0); LYMPH % 23.9 % (24.0-44.0); MEAN CORPUSCULAR HEMOGLOBIN 29.5 pg (27.0-33.0); MEAN CORPUSCULAR HGB CONC 31.2 g/dl (32.0-36.5); MEAN CORPUSCULAR VOLUME 94.7 fl (80.0-96.0); MONO # 0.3 10^3/uL (0.0-0.8); MONO % 7.2 % (0.0-5.0); PLATELET COUNT, AUTOMATED 163 10^3/uL (150-450); RED BLOOD COUNT 4.54 10^6/uL (4.00-5.40); WHITE BLOOD COUNT 4.7 10^3/uL (4.0-10.0)
[2020-12-08 11:15] LABS: ALBUMIN 2.8 GM/DL (3.2-5.2); CALCIUM LEVEL 9.4 MG/DL (8.8-10.2); CREATININE FOR GFR 1.75 MG/DL (0.55-1.30); DIGOXIN LEVEL 1.2 NG/ML (0.5-2.0); MAGNESIUM LEVEL 2.9 MG/DL (1.8-2.4); PHOSPHORUS LEVEL 3.3 MG/DL (2.5-4.9); POTASSIUM SERUM 4.3 MEQ/L (3.5-5.1)
[2020-12-08 11:27] LABS: PTH INTACT 271.6 PG/ML (18.5-88.0)
== END ==
PROVIDERS: ATTEND Internal Medicine
DX: N18.9 Chronic kidney disease, unspecified (principal)

== ENCOUNTER → 2020-12-09 | Outpatient (REF) | payer MEDICARE, MEDICAID | PROVIDERS: ATTEND Internal Medicine | DX: Z20.822 Contact with and (suspected) exposure to COVID-19 (principal) ==

== ENCOUNTER → 2020-12-16 | Outpatient (REF) | payer MEDICARE, MEDICAID | PROVIDERS: ATTEND Internal Medicine | DX: Z20.822 Contact with and (suspected) exposure to COVID-19 (principal) ==

== ENCOUNTER → 2020-12-23 | Outpatient (REF) | payer MEDICARE, MEDICAID | PROVIDERS: ATTEND Internal Medicine | DX: Z20.822 Contact with and (suspected) exposure to COVID-19 (principal) ==

== ENCOUNTER → 2020-12-29 | Outpatient (REF) | payer MEDICARE, MEDICAID | PROVIDERS: ATTEND Nurse Practitioner Adult Health | DX: I48.91 Unspecified atrial fibrillation (principal) ==

== ENCOUNTER → 2020-12-30 | Outpatient (REF) | payer MEDICARE, MEDICAID | PROVIDERS: ATTEND Internal Medicine | DX: Z20.822 Contact with and (suspected) exposure to COVID-19 (principal) ==

== ENCOUNTER → 2021-01-06 | Outpatient (REF) | payer MEDICARE, MEDICAID ==
[~2021-01-06] MED LIST changes: -MAG400TA PO; +MAGN400T35 PO
== END ==
PROVIDERS: ATTEND Internal Medicine
DX: Z20.822 Contact with and (suspected) exposure to COVID-19 (principal)

== ENCOUNTER → 2021-01-13 | Outpatient (REF) | payer MEDICARE, MEDICAID | PROVIDERS: ATTEND Internal Medicine | DX: Z20.822 Contact with and (suspected) exposure to COVID-19 (principal) ==

== ENCOUNTER → 2021-01-20 | Outpatient (REF) | payer MEDICARE, MEDICAID | PROVIDERS: ATTEND Internal Medicine | DX: Z20.822 Contact with and (suspected) exposure to COVID-19 (principal) ==

== ENCOUNTER → 2021-01-27 | Outpatient (REF) | payer MEDICARE, MEDICAID | PROVIDERS: ATTEND Internal Medicine | DX: Z51.81 Encounter for therapeutic drug level monitoring (principal); Z79.899 Other long term (current) drug therapy; Z20.822 Contact with and (suspected) exposure to COVID-19 | CPT/HCPCS: 36415; 80162; U0003 ==

== ENCOUNTER → 2021-02-03 | Outpatient (REF) | payer MEDICARE, MEDICAID | PROVIDERS: ATTEND Internal Medicine | DX: Z11.52 Encounter for screening for COVID-19 (principal) ==

== ENCOUNTER → 2021-03-01 | Outpatient (REF) | payer MEDICARE, MEDICAID ==
[2021-03-01 11:56] LABS: HEMOGLOBIN A1c 8.3 %
[2021-03-01 12:16] LABS: CHOLESTEROL RISK RATIO 3.628 (<5)
== END ==
PROVIDERS: ATTEND Internal Medicine
DX: N18.9 Chronic kidney disease, unspecified (principal); Z79.899 Other long term (current) drug therapy

== ENCOUNTER → 2021-03-05 | Outpatient (REF) | payer MEDICARE, MEDICAID ==
[2021-03-05 15:49] LABS: INFLUENZA A AMPLIFICATION NEGATIVE (NEGATIVE); INFLUENZA B AMPLIFICATION NEGATIVE (NEGATIVE)
== END ==
PROVIDERS: ATTEND Internal Medicine
DX: Z11.52 Encounter for screening for COVID-19 (principal)

== ENCOUNTER → 2021-03-09 | Outpatient (REF) | payer MEDICARE, MEDICAID ==
[~2021-03-09] MED LIST changes: +[UNRECOGNIZED DRUG - CODE]; -[UNRECOGNIZED DRUG - CODE]
== END ==
PROVIDERS: ATTEND Internal Medicine
DX: Z20.822 Contact with and (suspected) exposure to COVID-19 (principal)

== ENCOUNTER → 2021-03-10 | Outpatient (REF) | payer MEDICARE, MEDICAID ==
[2021-03-10 10:56] LABS: BASO # 0.1 10^3/uL (0.0-0.2); BASO % 1.4 % (0.0-1.0); EOS # 0.3 10^3/uL (0.0-0.5); EOS % 5.1 % (0.0-3.0); HEMATOCRIT 48.2 % (36.0-47.0); HEMOGLOBIN 15.8 g/dl (12.0-15.5); LYMPH # 1.1 10^3/uL (1.5-5.0); LYMPH % 22.3 % (24.0-44.0); MEAN CORPUSCULAR HEMOGLOBIN 30.7 pg (27.0-33.0); MEAN CORPUSCULAR HGB CONC 32.8 g/dl (32.0-36.5); MEAN CORPUSCULAR VOLUME 93.6 fl (80.0-96.0); MONO # 0.5 10^3/uL (0.0-0.8); MONO % 8.9 % (2.0-8.0); NEUTROPHILS # 3.1 10^3/uL (1.5-8.5); NEUTROPHILS % 61.9 % (36.0-66.0); PLATELET COUNT, AUTOMATED 150 10^3/uL (150-450); RED BLOOD COUNT 5.15 10^6/uL (4.00-5.40); WHITE BLOOD COUNT 5.1 10^3/uL (4.0-10.0)
[2021-03-10 11:34] LABS: ALBUMIN 3.2 GM/DL (3.2-5.2); CALCIUM LEVEL 10.5 MG/DL (8.8-10.2); CREATININE FOR GFR 1.32 MG/DL (0.55-1.30); GLOMERULAR FILTRATION RATE 41.5 (>39); MAGNESIUM LEVEL 2.3 MG/DL (1.8-2.4); POTASSIUM SERUM 4.7 MEQ/L (3.5-5.1)
[2021-03-10 12:22] LABS: PTH INTACT 128.5 PG/ML (18.5-88.0)
== END ==
PROVIDERS: ATTEND Internal Medicine
DX: E11.9 Type 2 diabetes mellitus without complications (principal)

== ENCOUNTER → 2021-03-12 | Outpatient (REF) | payer MEDICARE, MEDICAID | PROVIDERS: ATTEND Nurse Practitioner Adult Health | DX: R19.7 Diarrhea, unspecified (principal) ==

== ENCOUNTER → 2021-03-17 | Outpatient (REF) | payer MEDICARE, MEDICAID ==
[2021-03-17 12:51] LABS: BILIRUBIN,TOTAL 0.6 MG/DL (0.2-1.0); CALCIUM LEVEL 9.7 MG/DL (8.8-10.2); CREATININE FOR GFR 1.42 MG/DL (0.55-1.30); GLOMERULAR FILTRATION RATE 38.1 (>39); POTASSIUM SERUM 3.8 MEQ/L (3.5-5.1); TOTAL PROTEIN 6.4 GM/DL (6.4-8.2)
== END ==
PROVIDERS: ATTEND Internal Medicine
DX: R19.7 Diarrhea, unspecified (principal)

== ENCOUNTER → 2021-03-24 | Outpatient (REF) | payer MEDICARE, MEDICAID ==
[2021-03-24 10:35] LABS: HEMATOCRIT 42.2 % (36.0-47.0); HEMOGLOBIN 14.4 g/dl (12.0-15.5); MEAN CORPUSCULAR HGB CONC 34.1 g/dl (32.0-36.5); MEAN CORPUSCULAR VOLUME 90.9 fl (80.0-96.0); PLATELET COUNT, AUTOMATED 139 10^3/uL (150-450); RED BLOOD COUNT 4.64 10^6/uL (4.00-5.40); WHITE BLOOD COUNT 6.5 10^3/uL (4.0-10.0)
[2021-03-24 11:09] LABS: CALCIUM LEVEL 9.4 MG/DL (8.8-10.2); CREATININE FOR GFR 1.64 MG/DL (0.55-1.30); GLOMERULAR FILTRATION RATE 32.3 (>39); POTASSIUM SERUM 4.8 MEQ/L (3.5-5.1)
== END ==
PROVIDERS: ATTEND Internal Medicine
DX: E11.620 Type 2 diabetes mellitus with diabetic dermatitis (principal)

== ENCOUNTER → 2021-03-31 | Outpatient (REF) | payer MEDICARE, MEDICAID ==
[2021-03-31 10:33] LABS: HEMOGLOBIN A1c 7.8 %
[2021-03-31 10:44] LABS: CHOLESTEROL RISK RATIO 4.666 (<5); DIGOXIN LEVEL 0.4 NG/ML (0.5-2.0)
== END ==
PROVIDERS: ATTEND Internal Medicine
DX: E11.9 Type 2 diabetes mellitus without complications (principal)

== ENCOUNTER → 2021-04-07 | Outpatient (REF) | payer MEDICARE, MEDICAID | PROVIDERS: ATTEND Internal Medicine | DX: E11.9 Type 2 diabetes mellitus without complications (principal); Z79.899 Other long term (current) drug therapy ==

== ENCOUNTER → 2021-05-04 | Outpatient (REF) | payer MEDICARE, MEDICAID ==
[2021-05-04 12:04] LABS: CHOLESTEROL RISK RATIO 4.366 (<5)
[2021-05-04 13:41] LABS: HEMOGLOBIN A1c 8.1 %
== END ==
PROVIDERS: ATTEND Nurse Practitioner Adult Health
DX: E11.9 Type 2 diabetes mellitus without complications (principal)

== ENCOUNTER → 2021-06-17 | Outpatient (REF) | payer MEDICARE, MEDICAID ==
[2021-06-17 17:18] LABS: BASO # 0.1 10^3/uL (0.0-0.2); BASO % 1.4 % (0.0-1.0); EOS # 0.2 10^3/uL (0.0-0.5); EOS % 3.1 % (0.0-3.0); HEMATOCRIT 42.6 % (36.0-47.0); HEMOGLOBIN 14.2 g/dl (12.0-15.5); LYMPH # 1.1 10^3/uL (1.5-5.0); LYMPH % 18.2 % (24.0-44.0); MEAN CORPUSCULAR HEMOGLOBIN 30.6 pg (27.0-33.0); MEAN CORPUSCULAR HGB CONC 33.3 g/dl (32.0-36.5); MEAN CORPUSCULAR VOLUME 91.8 fl (80.0-96.0); MONO # 0.5 10^3/uL (0.0-0.8); MONO % 7.9 % (2.0-8.0); NEUTROPHILS % 68.7 % (36.0-66.0); PLATELET COUNT, AUTOMATED 168 10^3/uL (150-450); RED BLOOD COUNT 4.64 10^6/uL (4.00-5.40); WHITE BLOOD COUNT 5.8 10^3/uL (4.0-10.0)
[2021-06-17 17:33] LABS: ALBUMIN 2.7 GM/DL (3.2-5.2); CALCIUM LEVEL 9.3 MG/DL (8.8-10.2); CREATININE FOR GFR 1.57 MG/DL (0.55-1.30); GLOMERULAR FILTRATION RATE 33.9 (>39); MAGNESIUM LEVEL 2.3 MG/DL (1.8-2.4); PHOSPHORUS LEVEL 3.4 MG/DL (2.5-4.9); POTASSIUM SERUM 4.6 MEQ/L (3.5-5.1)
[2021-06-17 17:42] LABS: PTH INTACT 158.1 PG/ML (18.5-88.0)
== END ==
PROVIDERS: ATTEND Nurse Practitioner Adult Health
DX: N18.9 Chronic kidney disease, unspecified (principal); E11.9 Type 2 diabetes mellitus without complications; E83.52 Hypercalcemia

== ENCOUNTER → 2021-06-28 | Outpatient (REF) | payer MEDICARE, MEDICAID ==
[~2021-06-28] MED LIST changes: +AQUAOIN12 TP; +BENA25TA5 PO; +CALC1CAP31 PO; -CEFD1CAP8 PO; +CEFD300C41 PO; +CEFD300CAP PO; +CLOT1CRE56 TOP; +COLE1TAB PO; +DIPH2.5T15 PO; +DOXY100T PO; +DULO60CA35 PO; +GABA600T4 PO; -LISI2.5T2 PO; +LISI2.5T9 PO; +METO1TAB87 PO; +MONU5.636 PO; +NITR-67 PO; +POTA-151 PO; +SENN-111 PO; +SERO1TAB3 PO
== END ==
PROVIDERS: ATTEND Nurse Practitioner Adult Health
DX: I48.91 Unspecified atrial fibrillation (principal); Z79.899 Other long term (current) drug therapy

== ENCOUNTER → 2021-07-28 | Outpatient (REF) | payer MEDICARE, MEDICAID ==
[~2021-07-28] MED LIST changes: -AQUAOIN12 TP; -BENA25TA5 PO; -CALC1CAP31 PO; -CEFD300CAP PO; -CLOT1CRE56 TOP; -COLE1TAB PO; -DIPH2.5T15 PO; -DOXY100T PO; -DULO60CA35 PO; -GABA600T4 PO; -METO1TAB87 PO; -MONU5.636 PO; -NITR-67 PO; -POTA-151 PO; -SENN-111 PO; -SERO1TAB3 PO
== END ==
PROVIDERS: ATTEND Nurse Practitioner Adult Health
DX: I48.91 Unspecified atrial fibrillation (principal)

== ENCOUNTER → 2021-08-30 | Outpatient (REF) | payer MEDICARE, MEDICAID ==
[~2021-08-30] MED LIST changes: +CEFD1CAP8 PO; -CEFD300C41 PO
== END ==
PROVIDERS: ATTEND Nurse Practitioner Adult Health
DX: I48.91 Unspecified atrial fibrillation (principal)

== ENCOUNTER → 2021-09-08 | Outpatient (REF) | payer MEDICARE, MEDICAID ==
[2021-09-08 10:29] LABS: HEMATOCRIT 40.6 % (36.0-47.0); HEMOGLOBIN 13.1 g/dl (12.0-15.5); MEAN CORPUSCULAR HEMOGLOBIN 29.4 pg (27.0-33.0); MEAN CORPUSCULAR HGB CONC 32.3 g/dl (32.0-36.5); PLATELET COUNT, AUTOMATED 136 10^3/uL (150-450); RED BLOOD COUNT 4.46 10^6/uL (4.00-5.40); WHITE BLOOD COUNT 5.2 10^3/uL (4.0-10.0)
[2021-09-08 11:05] LABS: ALBUMIN 2.3 GM/DL (3.2-5.2); BILIRUBIN,TOTAL 0.5 MG/DL (0.2-1.0); CALCIUM LEVEL 9.6 MG/DL (8.8-10.2); CHOLESTEROL RISK RATIO 2.694 (<5); CREATININE FOR GFR 1.36 MG/DL (0.55-1.30); MAGNESIUM LEVEL 1.9 MG/DL (1.8-2.4); POTASSIUM SERUM 4.1 MEQ/L (3.5-5.1); TOTAL PROTEIN 5.9 GM/DL (6.4-8.2)
== END ==
PROVIDERS: ATTEND Internal Medicine
DX: I25.10 Atherosclerotic heart disease of native coronary artery without angina pectoris (principal)

== ENCOUNTER → 2021-09-23 | Outpatient (REF) | payer MEDICARE, MEDICAID | PROVIDERS: ATTEND Internal Medicine | DX: N25.81 Secondary hyperparathyroidism of renal origin (principal) ==

== ENCOUNTER → 2021-09-29 | Outpatient (REF) | payer MEDICARE, MEDICAID ==
[2021-09-29 13:17] LABS: CHOLESTEROL RISK RATIO 3.827 (<5); DIGOXIN LEVEL 0.6 NG/ML (0.5-2.0)
[2021-09-29 13:23] LABS: HEMOGLOBIN A1c 7.4 %
== END ==
PROVIDERS: ATTEND Internal Medicine
DX: I48.91 Unspecified atrial fibrillation (principal); Z79.899 Other long term (current) drug therapy

== ENCOUNTER → 2021-11-03 | Outpatient (REF) | payer MEDICARE, MEDICAID ==
[2021-11-04 11:12] LABS: APPEARANCE, URINE TURBID (CLEAR); BACTERIA, URINE AUTO 2+ (NEGATIVE); BILIRUBIN, URINE AUTO NEGATIVE (NEGATIVE); BLOOD, URINE BLOOD 2+ (NEGATIVE); COLOR, URINE YELLOW (YELLOW); GLUCOSE, URINE (UA) AUTO 1+ mg/dL (NEGATIVE); KETONE, URINE AUTO NEGATIVE (NEGATIVE); LEUKOCYTE ESTERASE, URINE AUTO 3+ (NEGATIVE); NITRITE, URINE AUTO NEGATIVE (NEGATIVE); PROTEIN, URINE AUTO NEGATIVE (NEGATIVE); RBC, URINE AUTO 13 /HPF (0-3); SPECIFIC GRAVITY URINE AUTO 1.008 (1.002-1.035); SQUAMOUS EPITHELIAL CELL UR AU 9 /HPF (0-6); TRANSITIONAL EPITHELIAL AUTO 2 /HPF; UROBILINOGEN, URINE AUTO 0.2 mg/dL (0.0-2.0); WBC, URINE AUTO TNTC /HPF (0-3)
== END ==
PROVIDERS: ATTEND Internal Medicine
DX: I48.91 Unspecified atrial fibrillation (principal); Z79.899 Other long term (current) drug therapy

== ENCOUNTER → 2021-11-08 | Outpatient (REF) | payer MEDICARE, MEDICAID ==
[~2021-11-08] MED LIST changes: +AQUAOIN12 TP; +BENA25TA5 PO; +CALC1CAP31 PO; -CEFD1CAP8 PO; +CEFD300C41 PO; +CEFD300CAP PO; +CLOT1CRE56 TOP; +COLE1TAB PO; +DIPH2.5T15 PO; +DOXY100T PO; +DULO60CA35 PO; +GABA600T4 PO; +METO1TAB87 PO; +MONU5.636 PO; +NITR-67 PO; +POTA-151 PO; +SENN-111 PO; +SERO1TAB3 PO
[2021-11-08 10:50] LABS: BASO # 0.1 10^3/uL (0.0-0.2); BASO % 1.2 % (0.0-1.0); EOS # 0.3 10^3/uL (0.0-0.5); HEMATOCRIT 45.2 % (36.0-47.0); HEMOGLOBIN 14.2 g/dl (12.0-15.5); MEAN CORPUSCULAR HGB CONC 31.4 g/dl (32.0-36.5); MONO # 0.3 10^3/uL (0.0-0.8); MONO % 6.8 % (2.0-8.0); NEUTROPHILS # 3.3 10^3/uL (1.5-8.5); NEUTROPHILS % 66.2 % (36.0-66.0); PLATELET COUNT, AUTOMATED 165 10^3/uL (150-450); RED BLOOD COUNT 5.08 10^6/uL (4.00-5.40)
[2021-11-08 11:17] LABS: ALBUMIN 2.6 GM/DL (3.2-5.2); BILIRUBIN,TOTAL 0.7 MG/DL (0.2-1.0); CALCIUM LEVEL 10.2 MG/DL (8.8-10.2); CREATININE FOR GFR 1.27 MG/DL (0.55-1.30); GLOMERULAR FILTRATION RATE 43.3 (>39); POTASSIUM SERUM 3.8 MEQ/L (3.5-5.1); TOTAL PROTEIN 6.4 GM/DL (6.4-8.2)
== END ==
PROVIDERS: ATTEND Internal Medicine
DX: R41.82 Altered mental status, unspecified (principal)

== ENCOUNTER 2021-11-20 20:48 | Emergency (ER) | payer MEDICARE, MEDICAID ==
[~2021-11-20 20:48] MED LIST changes: -CEFD1CAP8 PO; +CEFD300C41 PO
[2021-11-20] MEDS ORDERED: NS 500 ML IV ONE ×2 (21:30→23:00)
[2021-11-20 21:57] LABS: BASO # 0.1 10^3/uL (0.0-0.2); BASO % 0.9 % (0.0-1.0); EOS # 0.2 10^3/uL (0.0-0.5); EOS % 2.8 % (0.0-3.0); HEMOGLOBIN 13.1 g/dl (12.0-15.5); LYMPH % 14.4 % (24.0-44.0); MEAN CORPUSCULAR HEMOGLOBIN 27.7 pg (27.0-33.0); MEAN CORPUSCULAR HGB CONC 31.2 g/dl (32.0-36.5); MEAN CORPUSCULAR VOLUME 88.8 fl (80.0-96.0); MONO # 0.5 10^3/uL (0.0-0.8); MONO % 7.2 % (2.0-8.0); NEUTROPHILS # 4.9 10^3/uL (1.5-8.5); NEUTROPHILS % 74.1 % (36.0-66.0); PLATELET COUNT, AUTOMATED 192 10^3/uL (150-450); RED BLOOD COUNT 4.73 10^6/uL (4.00-5.40); WHITE BLOOD COUNT 6.7 10^3/uL (4.0-10.0)
[2021-11-20 22:27] LABS: ALBUMIN 2.5 GM/DL (3.2-5.2); BILIRUBIN,TOTAL 0.4 MG/DL (0.2-1.0); CALCIUM LEVEL 9.1 MG/DL (8.8-10.2); CREATININE FOR GFR 1.59 MG/DL (0.55-1.30); GLOMERULAR FILTRATION RATE 33.4 (>39); TOTAL PROTEIN 6.1 GM/DL (6.4-8.2)
[2021-11-20 22:37] LABS: RSV AMPLIFICATION NEGATIVE (NEGATIVE)
[2021-11-21] MEDS ORDERED: METOPROLOL 5 MG/5 ML VIAL IV STA (00:13)
[2021-11-21 00:35] VITALS: BP 132/60
[2021-11-21] MEDS ORDERED: BISOPROLOL FUM 2.5 MG PER 1/2TAB PO ONE (00:40)
[2021-11-21] MEDS ORDERED: cefTRIAXone SOD 1 GM in D5W MINI-BAG PLUS 50 ML IV ONE (00:45)
[2021-11-21] MEDS ORDERED: BISO5TAB14 PO (00:57)
[2021-11-21 01:35] VITALS: BP 144/78
[2021-11-21] MEDS ORDERED: bisoproloL fumarate 5 MG TAB PO ONE (01:35)
== END 2021-11-21 01:55 | disposition home or self-care (01) ==
LOC: M ED 20:48
DX: I48.91 Unspecified atrial fibrillation (principal); E86.0 Dehydration; R94.31 Abnormal electrocardiogram [ECG] [EKG]; I45.10 Unspecified right bundle-branch block; I11.9 Hypertensive heart disease without heart failure; I25.10 Atherosclerotic heart disease of native coronary artery without angina pectoris; E11.9 Type 2 diabetes mellitus without complications; E78.5 Hyperlipidemia, unspecified; N39.0 Urinary tract infection, site not specified; Z79.01 Long term (current) use of anticoagulants; Z79.4 Long term (current) use of insulin; Z79.899 Other long term (current) drug therapy; Z88.1 Allergy status to other antibiotic agents; Z95.1 Presence of aortocoronary bypass graft; Z95.0 Presence of cardiac pacemaker; Z98.890 Other specified postprocedural states
CPT/HCPCS: 70450; 71045; 80053; 81001; 84484; 85025; 87088; 87186; 87631; 93005; 96374; 99283; J0696

== ENCOUNTER → 2021-11-20 | Outpatient (REF) | payer MEDICARE, MEDICAID ==
[~2021-11-20] MED LIST changes: -AQUAOIN12 TP; -BENA25TA5 PO; -CALC1CAP31 PO; +CEFD1CAP8 PO; -CEFD300C41 PO; -CEFD300CAP PO; -CLOT1CRE56 TOP; -COLE1TAB PO; -DIPH2.5T15 PO; -DOXY100T PO; -DULO60CA35 PO; -GABA600T4 PO; -METO1TAB87 PO; -MONU5.636 PO; -NITR-67 PO; -POTA-151 PO; -SENN-111 PO; -SERO1TAB3 PO
[2021-11-21 08:02] LABS: APPEARANCE, URINE CLOUDY (CLEAR); BACTERIA, URINE AUTO 3+ (NEGATIVE); BILIRUBIN, URINE AUTO NEGATIVE (NEGATIVE); BLOOD, URINE BLOOD 1+ (NEGATIVE); COLOR, URINE YELLOW (YELLOW); GLUCOSE, URINE (UA) AUTO NEGATIVE (NEGATIVE); KETONE, URINE AUTO NEGATIVE (NEGATIVE); LEUKOCYTE ESTERASE, URINE AUTO 2+ (NEGATIVE); NITRITE, URINE AUTO NEGATIVE (NEGATIVE); PROTEIN, URINE AUTO 2+ mg/dL (NEGATIVE); RBC, URINE AUTO 26 /HPF (0-3); SQUAMOUS EPITHELIAL CELL UR AU 1 /HPF (0-6); UROBILINOGEN, URINE AUTO 0.2 mg/dL (0.0-2.0); WBC, URINE AUTO 91 /HPF (0-3)
== END ==
LOC: M LAB 06:40
PROVIDERS: ATTEND Internal Medicine
DX: N39.0 Urinary tract infection, site not specified (principal)

== ENCOUNTER → 2021-11-24 | Outpatient (REF) | payer MEDICARE, MEDICAID ==
[~2021-11-24] MED LIST changes: +CEFD1CAP8 PO; -CEFD300C41 PO
[2021-11-24 09:58] LABS: BASO # 0.1 10^3/uL (0.0-0.2); BASO % 1.4 % (0.0-1.0); EOS # 0.4 10^3/uL (0.0-0.5); EOS % 5.4 % (0.0-3.0); HEMATOCRIT 40.7 % (36.0-47.0); HEMOGLOBIN 12.7 g/dl (12.0-15.5); LYMPH # 1.1 10^3/uL (1.5-5.0); LYMPH % 16.1 % (24.0-44.0); MEAN CORPUSCULAR HEMOGLOBIN 27.6 pg (27.0-33.0); MEAN CORPUSCULAR HGB CONC 31.2 g/dl (32.0-36.5); MEAN CORPUSCULAR VOLUME 88.5 fl (80.0-96.0); MONO # 0.4 10^3/uL (0.0-0.8); MONO % 6.3 % (2.0-8.0); NEUTROPHILS # 4.7 10^3/uL (1.5-8.5); NEUTROPHILS % 70.3 % (36.0-66.0); PLATELET COUNT, AUTOMATED 186 10^3/uL (150-450); WHITE BLOOD COUNT 6.6 10^3/uL (4.0-10.0)
[2021-11-24 10:39] LABS: CALCIUM LEVEL 9.8 MG/DL (8.8-10.2); CREATININE FOR GFR 1.12 MG/DL (0.55-1.30); GLOMERULAR FILTRATION RATE 50.1 (>39); POTASSIUM SERUM 3.8 MEQ/L (3.5-5.1)
== END ==
PROVIDERS: ATTEND Nurse Practitioner Primary Care
DX: I48.91 Unspecified atrial fibrillation (principal)

== ENCOUNTER → 2021-11-27 | Outpatient (REF) | payer MEDICARE, MEDICAID ==
[2021-11-27 18:25] LABS: CLOSTRIDIUM DIFFICILE PCR NEGATIVE (NEGATIVE)
== END ==
PROVIDERS: ATTEND Internal Medicine
DX: R19.5 Other fecal abnormalities (principal)

== ENCOUNTER → 2021-12-01 | Outpatient (REF) | payer MEDICARE, MEDICAID ==
[~2021-12-01] MED LIST changes: -CEFD1CAP8 PO; +CEFD300C41 PO
== END ==
PROVIDERS: ATTEND Internal Medicine
DX: I48.91 Unspecified atrial fibrillation (principal)

== ENCOUNTER → 2021-12-08 | Outpatient (REF) | payer MEDICARE, MEDICAID ==
[~2021-12-08] MED LIST changes: +BENA25TA5 PO; +CALC1CAP31 PO; +COLE1TAB PO; +DIPH2.5T15 PO; +DULO60CA35 PO; +GABA600T4 PO; +NITR-67 PO; +POTA-151 PO; +SENN-111 PO
[2021-12-08 13:27] LABS: HEMATOCRIT 45.1 % (36.0-47.0); HEMOGLOBIN 13.7 g/dl (12.0-15.5); MEAN CORPUSCULAR HEMOGLOBIN 28.1 pg (27.0-33.0); MEAN CORPUSCULAR HGB CONC 30.4 g/dl (32.0-36.5); MEAN CORPUSCULAR VOLUME 92.6 fl (80.0-96.0); PLATELET COUNT, AUTOMATED 188 10^3/uL (150-450); RED BLOOD COUNT 4.87 10^6/uL (4.00-5.40)
[2021-12-08 16:02] LABS: CALCIUM LEVEL 10.3 MG/DL (8.8-10.2); CREATININE FOR GFR 1.44 MG/DL (0.55-1.30); GLOMERULAR FILTRATION RATE 37.5 (>39)
== END ==
PROVIDERS: ATTEND Internal Medicine
DX: R19.4 Change in bowel habit (principal); Z79.899 Other long term (current) drug therapy

== ENCOUNTER → 2021-12-08 | Outpatient (REF) | payer MEDICARE, MEDICAID ==
[~2021-12-08] MED LIST changes: -BENA25TA5 PO; -CALC1CAP31 PO; -COLE1TAB PO; -DIPH2.5T15 PO; -DULO60CA35 PO; -GABA600T4 PO; -NITR-67 PO; -POTA-151 PO; -SENN-111 PO
== END ==
PROVIDERS: ATTEND Internal Medicine
DX: R19.4 Change in bowel habit (principal); Z79.899 Other long term (current) drug therapy

== ENCOUNTER → 2021-12-09 | Outpatient (REF) | payer MEDICARE, MEDICAID | PROVIDERS: ATTEND Internal Medicine | DX: R19.5 Other fecal abnormalities (principal) ==

== ENCOUNTER 2021-12-13 12:21 | Inpatient (IN) | payer MEDICARE, MEDICAID ==
[~2021-12-13 12:21] MED LIST changes: -BENA25TA5 PO; -CALC1CAP31 PO; -COLE1TAB PO; -DIPH2.5T15 PO; -DULO60CA35 PO; -GABA600T4 PO; -NITR-67 PO; -POTA-151 PO; -SENN-111 PO
[2021-12-13] MEDS ORDERED: LIDOCAINE 2% 5ML JELLY UROJET TOP ONE (12:35)
[2021-12-13] MEDS ORDERED: DIGO0.123 PO (13:09)
[2021-12-13] MEDS ORDERED: XARE15TA PO (13:09)
[2021-12-13] MEDS ORDERED: COLE1TAB PO (14:57)
[2021-12-13] MEDS ORDERED: GABA600T4 PO (14:57)
[2021-12-13] MEDS ORDERED: NITR-67 PO (14:57)
[2021-12-13] MEDS ORDERED: BENA25TA5 PO (14:57)
[2021-12-13] MEDS ORDERED: ACET1TAB55 PO (14:57)
[2021-12-13] MEDS ORDERED: CALC1CAP31 PO (14:57)
[2021-12-13] MEDS ORDERED: POTA-151 PO (14:57)
[2021-12-13] MEDS ORDERED: DULO60CA35 PO (14:57)
[2021-12-13] MEDS ORDERED: [UNRECOGNIZED DRUG - CODE] MT (14:57)
[2021-12-13] MEDS ORDERED: TORS10TA3 PO (14:57)
[2021-12-13] MEDS ORDERED: SENN-111 PO (14:57)
[2021-12-13] MEDS ORDERED: DIPH2.5T15 PO (14:57)
[2021-12-13] MEDS ORDERED: HOME MED LIST COMPLETE! XX SCH (15:00)
[2021-12-13 15:11] LABS: VENOUS BASE EXCESS -1.3 (-2.0-2.0); VENOUS HCO3 23.3 MEQ/L (23.0-27.0); VENOUS O2 SATURATION 98.3 % (60.0-80.0); VENOUS PARTIAL PRESSURE CO2 38.9 mmHg (38.0-50.0); VENOUS PARTIAL PRESSURE O2 127.9 mmHg (30.0-50.0); VENOUS PH 7.396 UNITS (7.330-7.430); VENOUS STANDARD HCO3 23.4 MEQ/L; VENOUS TOTAL CO2 24.5 MEQ/L (24.0-28.0)
[2021-12-13 15:17] LABS: BASO % 0.6 % (0.0-1.0); EOS # 0.3 10^3/uL (0.0-0.5); EOS % 4.4 % (0.0-3.0); HEMATOCRIT 42.2 % (36.0-47.0); HEMOGLOBIN 13.1 g/dl (12.0-15.5); LYMPH # 0.8 10^3/uL (1.5-5.0); LYMPH % 12.4 % (24.0-44.0); MEAN CORPUSCULAR HEMOGLOBIN 27.8 pg (27.0-33.0); MEAN CORPUSCULAR VOLUME 89.4 fl (80.0-96.0); MONO # 0.4 10^3/uL (0.0-0.8); MONO % 6.4 % (2.0-8.0); NEUTROPHILS # 5.1 10^3/uL (1.5-8.5); NEUTROPHILS % 75.8 % (36.0-66.0); PLATELET COUNT, AUTOMATED 172 10^3/uL (150-450); RED BLOOD COUNT 4.72 10^6/uL (4.00-5.40); WHITE BLOOD COUNT 6.8 10^3/uL (4.0-10.0)
[2021-12-13 15:41] LABS: CK-MB VALUE MASS 1.1 NG/ML (<3.6); MB/CK RELATIVE INDEX 0.88 (< OR =4)
[2021-12-13 17:03] LABS: ACETAMINOPHEN LEVEL < 2.0 UG/ML (10.0-30.0); ALBUMIN 2.6 GM/DL (3.2-5.2); ALT/SGPT 15 U/L (12-78); BILIRUBIN,DIRECT 0.2 MG/DL (0.0-0.2); BILIRUBIN,TOTAL 0.4 MG/DL (0.2-1.0); BLOOD UREA NITROGEN 81 MG/DL (7-18); CALCIUM LEVEL 10.1 MG/DL (8.8-10.2); CARBON DIOXIDE LEVEL 27 MEQ/L (21-32); CHLORIDE LEVEL 111 MEQ/L (98-107); CREATININE FOR GFR 1.55 MG/DL (0.55-1.30); ETHYL ALCOHOL (ETHANOL) < 0.003 % (0.000-0.010); GLOMERULAR FILTRATION RATE 34.4 (>39); GLUCOSE, FASTING 146 MG/DL (70-100); POTASSIUM SERUM 4.4 MEQ/L (3.5-5.1); SALICYLATE LEVEL < 1.7 MG/DL (5.0-30.0); SODIUM LEVEL 143 MEQ/L (136-145); TOTAL PROTEIN 6.3 GM/DL (6.4-8.2)
[2021-12-13] MEDS ORDERED: NS 1,000 ML IV SCH ×2 (17:15→23:30)
[2021-12-13] MEDS ORDERED: ACETAMINOPHEN TAB 650MG DOSE (2X325MG) PO PRN (20:20)
[2021-12-13] MEDS ORDERED: BISACODYL 10 MG SUPP PR PRN (20:20)
[2021-12-13] MEDS ORDERED: MOM 30ML SUSPENSION UDC PO PRN (20:20)
[2021-12-13] MEDS ORDERED: SENNA 8.6 MG TAB (SENOKOT) PO PRN (20:20)
[2021-12-13] MEDS ORDERED: DEXTROSE 50% 50 ML SYRINGE IV PRN (20:45)
[2021-12-13] MEDS ORDERED: GLUCAGON INJ 1MG VIAL SC PRN (20:45)
[2021-12-13] MEDS ORDERED: GLUCOSE 4GM CHEW TABLET PO PRN (20:45)
[2021-12-13] MEDS: LEVEMIR (INSULIN DETEMIR) 1 UNITS/0.01ML SC SCH (21:00)
[2021-12-13] MEDS: HumaLOG INSULIN (NovoLOG) PER UNIT SC SCH (21:00)
[2021-12-13 21:17] LABS: HEMOGLOBIN A1c 7.1 %
[2021-12-13] MEDS ORDERED: DIGOXIN 0.125 MG TAB PO ONE (21:30)
[2021-12-13] MEDS: GABAPENTIN 300 MG CAP PO SCH (21:48)
[2021-12-13] MEDS: RIVAROXABAN 15 MG TAB (XARELTO) PO SCH (21:48)
[2021-12-13] MEDS ORDERED: NS 1,000 ML IV ONE (22:10)
[2021-12-13] MEDS: MEROPENEM INJ 1 GM in IV 1 EA IV SCH (22:11)
[2021-12-13] MEDS: ACETAMINOPHEN 500 MG TAB PO SCH (22:24)
[2021-12-14] MEDS ORDERED: METOPROLOL 5 MG/5 ML VIAL IV SCH ×2 (01:05→01:35)
[2021-12-14] MEDS ORDERED: METOPROLOL 5 MG/5 ML VIAL IV STA (01:43)
[2021-12-14] MEDS ORDERED: METOPROLOL 5 MG/5 ML VIAL IV ONE ×2 (01:49→01:54)
[2021-12-14] MEDS: ACETAMINOPHEN 500 MG TAB PO SCH ×3 (06:00→21:03)
[2021-12-14 08:18] LABS: BASO % 0.7 % (0.0-1.0); EOS # 0.3 10^3/uL (0.0-0.5); EOS % 5.5 % (0.0-3.0); HEMATOCRIT 39.3 % (36.0-47.0); HEMOGLOBIN 11.9 g/dl (12.0-15.5); LYMPH # 1.1 10^3/uL (1.5-5.0); LYMPH % 18.8 % (24.0-44.0); MEAN CORPUSCULAR HEMOGLOBIN 27.9 pg (27.0-33.0); MEAN CORPUSCULAR HGB CONC 30.3 g/dl (32.0-36.5); MONO # 0.5 10^3/uL (0.0-0.8); MONO % 8.8 % (2.0-8.0); NEUTROPHILS # 3.8 10^3/uL (1.5-8.5); NEUTROPHILS % 65.7 % (36.0-66.0); PLATELET COUNT, AUTOMATED 177 10^3/uL (150-450); RED BLOOD COUNT 4.27 10^6/uL (4.00-5.40); WHITE BLOOD COUNT 5.8 10^3/uL (4.0-10.0)
[2021-12-14] MEDS: HumaLOG INSULIN (NovoLOG) PER UNIT SC SCH ×4 (08:30→20:07)
[2021-12-14 08:37] LABS: CALCIUM LEVEL 9.2 MG/DL (8.8-10.2); CREATININE FOR GFR 1.52 MG/DL (0.55-1.30); GLOMERULAR FILTRATION RATE 35.2 (>39); MAGNESIUM LEVEL 2.6 MG/DL (1.8-2.4); POTASSIUM SERUM 4.1 MEQ/L (3.5-5.1)
[2021-12-14] MEDS: LEVEMIR (INSULIN DETEMIR) 1 UNITS/0.01ML SC SCH ×2 (09:00→20:05)
[2021-12-14] MEDS: DIGOXIN 0.125 MG TAB PO SCH (10:06)
[2021-12-14] MEDS: PRAVASTATIN 20 MG TAB PO SCH (10:07)
[2021-12-14] MEDS: DULoxetine 30MG CAPSULE (CYMBALTA) PO SCH (10:07)
[2021-12-14] MEDS: TORSEMIDE 10 MG TABLET PO SCH (10:08)
[2021-12-14] MEDS: GABAPENTIN 300 MG CAP PO SCH ×2 (10:08→20:04)
[2021-12-14] MEDS: POTASSIUM CHLORIDE 10MEQ SR TABLET PO SCH (10:08)
[2021-12-14] MEDS: MEROPENEM INJ 1 GM in IV 1 EA IV SCH ×2 (10:13→21:02)
[2021-12-14 11:30] VITALS: BP 114/57
[2021-12-14 11:58] VITALS: BP 111/59
[2021-12-14 15:30] VITALS: BP 110/60
[2021-12-14 19:06] VITALS: BP 99/44
[2021-12-14] MEDS: RIVAROXABAN 15 MG TAB (XARELTO) PO SCH (20:04)
[2021-12-15] VITALS: BP 96/51
[2021-12-15 04:00] VITALS: BP 129/48
[2021-12-15] MEDS: ACETAMINOPHEN 500 MG TAB PO SCH ×3 (05:36→20:39)
[2021-12-15 08:01] LABS: BASO # 0.1 10^3/uL (0.0-0.2); BASO % 0.9 % (0.0-1.0); EOS # 0.4 10^3/uL (0.0-0.5); EOS % 6.9 % (0.0-3.0); HEMATOCRIT 37.2 % (36.0-47.0); HEMOGLOBIN 11.6 g/dl (12.0-15.5); LYMPH # 0.9 10^3/uL (1.5-5.0); LYMPH % 16.6 % (24.0-44.0); MEAN CORPUSCULAR HEMOGLOBIN 27.8 pg (27.0-33.0); MEAN CORPUSCULAR HGB CONC 31.2 g/dl (32.0-36.5); MONO # 0.4 10^3/uL (0.0-0.8); MONO % 6.4 % (2.0-8.0); NEUTROPHILS # 3.9 10^3/uL (1.5-8.5); NEUTROPHILS % 68.7 % (36.0-66.0); PLATELET COUNT, AUTOMATED 187 10^3/uL (150-450); RED BLOOD COUNT 4.18 10^6/uL (4.00-5.40); WHITE BLOOD COUNT 5.7 10^3/uL (4.0-10.0)
[2021-12-15 08:24] VITALS: BP 111/54
[2021-12-15 08:30] LABS: CALCIUM LEVEL 8.9 MG/DL (8.8-10.2); CREATININE FOR GFR 1.3 MG/DL (0.55-1.30); GLOMERULAR FILTRATION RATE 42.2 (>39); MAGNESIUM LEVEL 2.3 MG/DL (1.8-2.4); POTASSIUM SERUM 4.3 MEQ/L (3.5-5.1)
[2021-12-15] MEDS: DIGOXIN 0.125 MG TAB PO SCH (08:43)
[2021-12-15] MEDS: PRAVASTATIN 20 MG TAB PO SCH (08:45)
[2021-12-15] MEDS: TORSEMIDE 10 MG TABLET PO SCH (08:45)
[2021-12-15] MEDS: POTASSIUM CHLORIDE 10MEQ SR TABLET PO SCH (08:47)
[2021-12-15] MEDS: GABAPENTIN 300 MG CAP PO SCH ×2 (08:47→20:39)
[2021-12-15] MEDS: DULoxetine 30MG CAPSULE (CYMBALTA) PO SCH (08:47)
[2021-12-15] MEDS: CALCITRIOL 0.25 MCG CAP (S0169) PO SCH (08:47)
[2021-12-15] MEDS: LEVEMIR (INSULIN DETEMIR) 1 UNITS/0.01ML SC SCH ×2 (08:48→20:39)
[2021-12-15] MEDS: HumaLOG INSULIN (NovoLOG) PER UNIT SC SCH ×4 (08:49→20:32)
[2021-12-15] MEDS: MEROPENEM INJ 1 GM in IV 1 EA IV SCH ×2 (09:01→20:40)
[2021-12-15 11:32] VITALS: BP 119/70
[2021-12-15] MEDS: LOPERAMIDE 2 MG CAPLET PO PRN (12:41)
[2021-12-15] MEDS: LACTOBACILLUS ACIDOPHILUS CAP (BACID) PO SCH ×3 (12:41→20:39)
[2021-12-15 16:29] VITALS: BP 118/49
[2021-12-15 19:01] VITALS: BP 100/49
[2021-12-15] MEDS: RIVAROXABAN 15 MG TAB (XARELTO) PO SCH (20:39)
[2021-12-16 04:07] LABS: BASO # 0.1 10^3/uL (0.0-0.2); BASO % 1.3 % (0.0-1.0); EOS # 0.2 10^3/uL (0.0-0.5); EOS % 4.8 % (0.0-3.0); HEMATOCRIT 37.5 % (36.0-47.0); HEMOGLOBIN 11.7 g/dl (12.0-15.5); LYMPH # 0.8 10^3/uL (1.5-5.0); LYMPH % 16.4 % (24.0-44.0); MEAN CORPUSCULAR HEMOGLOBIN 27.7 pg (27.0-33.0); MEAN CORPUSCULAR HGB CONC 31.2 g/dl (32.0-36.5); MEAN CORPUSCULAR VOLUME 88.7 fl (80.0-96.0); MONO # 0.3 10^3/uL (0.0-0.8); MONO % 6.7 % (2.0-8.0); NEUTROPHILS # 3.3 10^3/uL (1.5-8.5); NEUTROPHILS % 70.2 % (36.0-66.0); PLATELET COUNT, AUTOMATED 179 10^3/uL (150-450); RED BLOOD COUNT 4.23 10^6/uL (4.00-5.40); WHITE BLOOD COUNT 4.8 10^3/uL (4.0-10.0)
[2021-12-16 04:27] LABS: CALCIUM LEVEL 8.9 MG/DL (8.8-10.2); CREATININE FOR GFR 1.43 MG/DL (0.55-1.30); GLOMERULAR FILTRATION RATE 37.8 (>39); POTASSIUM SERUM 4.3 MEQ/L (3.5-5.1)
[2021-12-16 04:36] VITALS: BP 108/50
[2021-12-16] MEDS: ACETAMINOPHEN 500 MG TAB PO SCH ×3 (05:58→21:39)
[2021-12-16] MEDS: LOPERAMIDE 2 MG CAPLET PO PRN ×2 (05:58→10:55)
[2021-12-16 08:00] VITALS: BP 111/72
[2021-12-16] MEDS: LACTOBACILLUS ACIDOPHILUS CAP (BACID) PO SCH ×4 (09:22→20:22)
[2021-12-16] MEDS: DIGOXIN 0.125 MG TAB PO SCH (09:23)
[2021-12-16] MEDS: DULoxetine 30MG CAPSULE (CYMBALTA) PO SCH (09:23)
[2021-12-16] MEDS: POTASSIUM CHLORIDE 10MEQ SR TABLET PO SCH (09:23)
[2021-12-16] MEDS: GABAPENTIN 300 MG CAP PO SCH ×2 (09:24→20:22)
[2021-12-16] MEDS: PRAVASTATIN 20 MG TAB PO SCH (09:24)
[2021-12-16] MEDS: TORSEMIDE 10 MG TABLET PO SCH (09:24)
[2021-12-16] MEDS: HumaLOG INSULIN (NovoLOG) PER UNIT SC SCH ×4 (09:28→20:09)
[2021-12-16] MEDS: LEVEMIR (INSULIN DETEMIR) 1 UNITS/0.01ML SC SCH ×2 (09:28→20:22)
[2021-12-16] MEDS: MEROPENEM INJ 1 GM in IV 1 EA IV SCH ×2 (09:28→21:39)
[2021-12-16 12:00] VITALS: BP 102/54
[2021-12-16 17:38] VITALS: BP 118/57
[2021-12-16 20:00] VITALS: BP 126/58
[2021-12-16] MEDS: RIVAROXABAN 15 MG TAB (XARELTO) PO SCH (20:22)
[2021-12-16 22:41] VITALS: BP 115/45
[2021-12-17] MEDS: ACETAMINOPHEN 500 MG TAB PO SCH (05:11)
[2021-12-17 06:00] VITALS: BP 114/51
[2021-12-17 06:41] LABS: BASO % 0.8 % (0.0-1.0); EOS # 0.3 10^3/uL (0.0-0.5); EOS % 6.5 % (0.0-3.0); HEMATOCRIT 39.1 % (36.0-47.0); LYMPH # 1.1 10^3/uL (1.5-5.0); LYMPH % 21.7 % (24.0-44.0); MEAN CORPUSCULAR HEMOGLOBIN 27.4 pg (27.0-33.0); MEAN CORPUSCULAR HGB CONC 30.7 g/dl (32.0-36.5); MEAN CORPUSCULAR VOLUME 89.3 fl (80.0-96.0); MONO # 0.3 10^3/uL (0.0-0.8); MONO % 6.9 % (2.0-8.0); NEUTROPHILS # 3.1 10^3/uL (1.5-8.5); NEUTROPHILS % 63.3 % (36.0-66.0); PLATELET COUNT, AUTOMATED 188 10^3/uL (150-450); RED BLOOD COUNT 4.38 10^6/uL (4.00-5.40); WHITE BLOOD COUNT 4.9 10^3/uL (4.0-10.0)
[2021-12-17 06:59] LABS: CALCIUM LEVEL 8.8 MG/DL (8.8-10.2); CREATININE FOR GFR 1.16 MG/DL (0.55-1.30); GLOMERULAR FILTRATION RATE 48.1 (>39)
[2021-12-17] MEDS ORDERED: MONU5.636 PO (07:09)
[2021-12-17] MEDS: LEVEMIR (INSULIN DETEMIR) 1 UNITS/0.01ML SC SCH (08:29)
[2021-12-17] MEDS: POTASSIUM CHLORIDE 10MEQ SR TABLET PO SCH (08:30)
[2021-12-17] MEDS: HumaLOG INSULIN (NovoLOG) PER UNIT SC SCH (08:30)
[2021-12-17] MEDS: LACTOBACILLUS ACIDOPHILUS CAP (BACID) PO SCH (08:31)
[2021-12-17] MEDS: TORSEMIDE 10 MG TABLET PO SCH (08:31)
[2021-12-17] MEDS: DULoxetine 30MG CAPSULE (CYMBALTA) PO SCH (08:31)
[2021-12-17] MEDS: GABAPENTIN 300 MG CAP PO SCH (08:31)
[2021-12-17] MEDS: PRAVASTATIN 20 MG TAB PO SCH (08:31)
[2021-12-17] MEDS: DIGOXIN 0.125 MG TAB PO SCH (08:33)
[2021-12-17] MEDS: CALCITRIOL 0.25 MCG CAP (S0169) PO SCH (08:33)
[2021-12-17] MEDS ORDERED: FOSFOMYCIN TROMETHAMINE 3 GM POWDER PACKET (MONUROL) PO ONE (09:00)
== END 2021-12-17 13:35 | DRG 689 ==
LOC: M ED 12:21 → EDBD 12:21 → M ED INP 19:57 → ENRESERV 12-14 09:35 → M PCU 12-14 10:55 → M MSPAV 12-16 22:38
PROVIDERS: ADMIT Family Medicine; ATTEND Family Medicine
DX: N39.0 Urinary tract infection, site not specified (principal); G93.41 Metabolic encephalopathy; I50.32 Chronic diastolic (congestive) heart failure; N18.9 Chronic kidney disease, unspecified; I48.91 Unspecified atrial fibrillation; D64.9 Anemia, unspecified; E11.22 Type 2 diabetes mellitus with diabetic chronic kidney disease; D69.6 Thrombocytopenia, unspecified; I49.5 Sick sinus syndrome; I35.0 Nonrheumatic aortic (valve) stenosis; B96.20 Unspecified Escherichia coli [E. coli] as the cause of diseases classified elsewhere; R19.7 Diarrhea, unspecified; L27.0 Generalized skin eruption due to drugs and medicaments taken internally; T36.1X5A Adverse effect of cephalosporins and other beta-lactam antibiotics, initial encounter; I87.2 Venous insufficiency (chronic) (peripheral); Z95.0 Presence of cardiac pacemaker; Z79.4 Long term (current) use of insulin; Z79.01 Long term (current) use of anticoagulants; Z79.899 Other long term (current) drug therapy; Z88.1 Allergy status to other antibiotic agents

== ENCOUNTER → 2021-12-13 | Outpatient (CLI) | payer MEDICARE, MEDICAID ==
[~2021-12-13] MED LIST changes: +BENA25TA5 PO; +CALC1CAP31 PO; +COLE1TAB PO; +DIPH2.5T15 PO; +DULO60CA35 PO; +GABA600T4 PO; +NITR-67 PO; +POTA-151 PO; +SENN-111 PO
== END ==
PROVIDERS: ATTEND Internal Medicine
DX: Z53.8 Procedure and treatment not carried out for other reasons (principal)

== ENCOUNTER → 2021-12-13 | Outpatient (REF) | payer MEDICARE, MEDICAID ==
[2021-12-13 11:53] LABS: HEMATOCRIT 45.2 % (36.0-47.0); HEMOGLOBIN 13.9 g/dl (12.0-15.5); MEAN CORPUSCULAR HEMOGLOBIN 28.2 pg (27.0-33.0); MEAN CORPUSCULAR HGB CONC 30.8 g/dl (32.0-36.5); MEAN CORPUSCULAR VOLUME 91.7 fl (80.0-96.0); PLATELET COUNT, AUTOMATED 183 10^3/uL (150-450); RED BLOOD COUNT 4.93 10^6/uL (4.00-5.40); WHITE BLOOD COUNT 6.1 10^3/uL (4.0-10.0)
[2021-12-13 12:22] LABS: CALCIUM LEVEL 10.3 MG/DL (8.8-10.2); CREATININE FOR GFR 1.5 MG/DL (0.55-1.30); GLOMERULAR FILTRATION RATE 35.8 (>39); POTASSIUM SERUM 4.5 MEQ/L (3.5-5.1)
== END ==
PROVIDERS: ATTEND Internal Medicine
DX: N39.0 Urinary tract infection, site not specified (principal)

== ENCOUNTER → 2021-12-20 | Outpatient (REF) | payer MEDICARE, MEDICAID ==
[~2021-12-20] MED LIST changes: +BENA25TA5 PO; +CALC1CAP31 PO; +COLE1TAB PO; +DIPH2.5T15 PO; +DULO60CA35 PO; +GABA600T4 PO; +MONU5.636 PO; +NITR-67 PO; +POTA-151 PO; +SENN-111 PO
[2021-12-20 11:09] LABS: HEMOGLOBIN A1c 6.8 %
== END ==
PROVIDERS: ATTEND Internal Medicine
DX: E11.9 Type 2 diabetes mellitus without complications (principal)

== ENCOUNTER → 2021-12-27 | Outpatient (REF) | payer MEDICARE, MEDICAID | PROVIDERS: ATTEND Nurse Practitioner Primary Care | DX: N39.0 Urinary tract infection, site not specified (principal); Z16.12 Extended spectrum beta lactamase (ESBL) resistance ==

== ENCOUNTER → 2021-12-29 | Outpatient (REF) | payer MEDICARE, MEDICAID | PROVIDERS: ATTEND Internal Medicine | DX: Z79.899 Other long term (current) drug therapy (principal) ==

== ENCOUNTER → 2021-12-30 | Outpatient (REF) | payer MEDICARE, MEDICAID ==
[2021-12-30 12:03] LABS: HEMATOCRIT 42.5 % (36.0-47.0); HEMOGLOBIN 13.3 g/dl (12.0-15.5); MEAN CORPUSCULAR HEMOGLOBIN 27.8 pg (27.0-33.0); MEAN CORPUSCULAR HGB CONC 31.3 g/dl (32.0-36.5); MEAN CORPUSCULAR VOLUME 88.7 fl (80.0-96.0); PLATELET COUNT, AUTOMATED 150 10^3/uL (150-450); RED BLOOD COUNT 4.79 10^6/uL (4.00-5.40); WHITE BLOOD COUNT 6.5 10^3/uL (4.0-10.0)
[2021-12-30 13:01] LABS: ALBUMIN 2.7 GM/DL (3.2-5.2); BILIRUBIN,TOTAL 0.6 MG/DL (0.2-1.0); CALCIUM LEVEL 10.1 MG/DL (8.8-10.2); CREATININE FOR GFR 1.47 MG/DL (0.55-1.30); DIGOXIN LEVEL 1.2 NG/ML (0.5-2.0); GLOMERULAR FILTRATION RATE 36.6 (>39); POTASSIUM SERUM 4.8 MEQ/L (3.5-5.1); TOTAL PROTEIN 6.1 GM/DL (6.4-8.2)
== END ==
PROVIDERS: ATTEND Internal Medicine
DX: I48.91 Unspecified atrial fibrillation (principal); Z79.899 Other long term (current) drug therapy

== ENCOUNTER → 2022-01-01 | Outpatient (REF) | payer MEDICARE, MEDICAID ==
[2022-01-01 13:29] LABS: BASO # 0.1 10^3/uL (0.0-0.2); EOS # 0.3 10^3/uL (0.0-0.5); HEMATOCRIT 45.2 % (36.0-47.0); LYMPH # 0.8 10^3/uL (1.5-5.0); LYMPH % 13.3 % (24.0-44.0); MEAN CORPUSCULAR HEMOGLOBIN 28.1 pg (27.0-33.0); MEAN CORPUSCULAR VOLUME 90.6 fl (80.0-96.0); MONO # 0.4 10^3/uL (0.0-0.8); MONO % 6.6 % (2.0-8.0); NEUTROPHILS # 4.7 10^3/uL (1.5-8.5); NEUTROPHILS % 74.8 % (36.0-66.0); PLATELET COUNT, AUTOMATED 160 10^3/uL (150-450); RED BLOOD COUNT 4.99 10^6/uL (4.00-5.40); WHITE BLOOD COUNT 6.2 10^3/uL (4.0-10.0)
[2022-01-01 13:48] LABS: CALCIUM LEVEL 10.5 MG/DL (8.8-10.2); CREATININE FOR GFR 1.25 MG/DL (0.55-1.30); GLOMERULAR FILTRATION RATE 44.1 (>39); POTASSIUM SERUM 5.1 MEQ/L (3.5-5.1)
== END ==
LOC: M LAB 12:30
PROVIDERS: ATTEND Internal Medicine
DX: R53.83 Other fatigue (principal)

== ENCOUNTER → 2022-01-03 | Outpatient (REF) | payer MEDICARE, MEDICAID ==
[~2022-01-03] MED LIST changes: +AQUAOIN12 TP; +CEFD300CAP PO; +CLOT1CRE56 TOP; +DOXY100T PO; +METO1TAB87 PO; +SERO1TAB3 PO
== END ==
LOC: EEVIPCON 10:27
PROVIDERS: ATTEND Internal Medicine
DX: N39.0 Urinary tract infection, site not specified (principal)

== ENCOUNTER → 2022-01-03 | Outpatient (REF) | payer MEDICARE, MEDICAID ==
[~2022-01-03] MED LIST changes: -CEFD300CAP PO; -DOXY100T PO; -METO1TAB87 PO
[2022-01-03 10:52] LABS: HEMATOCRIT 42.8 % (36.0-47.0); HEMOGLOBIN 12.9 g/dl (12.0-15.5); MEAN CORPUSCULAR HEMOGLOBIN 27.8 pg (27.0-33.0); MEAN CORPUSCULAR HGB CONC 30.1 g/dl (32.0-36.5); MEAN CORPUSCULAR VOLUME 92.2 fl (80.0-96.0); PLATELET COUNT, AUTOMATED 130 10^3/uL (150-450); RED BLOOD COUNT 4.64 10^6/uL (4.00-5.40); WHITE BLOOD COUNT 4.8 10^3/uL (4.0-10.0)
[2022-01-03 11:15] LABS: CALCIUM LEVEL 9.6 MG/DL (8.8-10.2); CREATININE FOR GFR 1.11 MG/DL (0.55-1.30); GLOMERULAR FILTRATION RATE 50.6 (>39); POTASSIUM SERUM 4.4 MEQ/L (3.5-5.1)
[2022-01-03 11:35] LABS: ALBUMIN 2.7 GM/DL (3.2-5.2); ALT/SGPT 19 U/L (12-78); BILIRUBIN,TOTAL 0.5 MG/DL (0.2-1.0); BLOOD UREA NITROGEN 70 MG/DL (7-18); CALCIUM LEVEL 9.7 MG/DL (8.8-10.2); CARBON DIOXIDE LEVEL 27 MEQ/L (21-32); CHLORIDE LEVEL 107 MEQ/L (98-107); CREATININE FOR GFR 1.17 MG/DL (0.55-1.30); GLOMERULAR FILTRATION RATE 47.6 (>39); GLUCOSE, FASTING 186 MG/DL (70-100); POTASSIUM SERUM 4.3 MEQ/L (3.5-5.1); SODIUM LEVEL 139 MEQ/L (136-145); TOTAL PROTEIN 5.9 GM/DL (6.4-8.2)
[2022-01-03 15:45] LABS: VITAMIN B12 LEVEL > 2000 PG/ML (247-911)
[2022-01-03 15:46] LABS: FOLATE 7.3 NG/ML (>5.4)
== END ==
PROVIDERS: ATTEND Nurse Practitioner Primary Care
DX: R41.0 Disorientation, unspecified (principal)

== ENCOUNTER → 2022-01-03 | Outpatient (REF) | payer MEDICARE, MEDICAID ==
[~2022-01-03] MED LIST changes: -AQUAOIN12 TP; -CLOT1CRE56 TOP; -SERO1TAB3 PO
== END ==
PROVIDERS: ATTEND Internal Medicine
DX: N39.0 Urinary tract infection, site not specified (principal); Z53.9 Procedure and treatment not carried out, unspecified reason

== ENCOUNTER 2022-01-06 10:52 | Inpatient (IN) | payer MEDICARE, MEDICAID ==
[~2022-01-06] VITALS: Ht 170.2 cm; Wt 92.8 kg
[2022-01-06] MEDS ORDERED: SERO1TAB3 PO (12:23)
[2022-01-06] MEDS ORDERED: AQUAOIN12 TP (12:34)
[2022-01-06] MEDS ORDERED: CLOT1CRE56 TOP (12:38)
[2022-01-06] MEDS ORDERED: HOME MED LIST COMPLETE! XX SCH (12:45)
[2022-01-06 13:16] LABS: BASO # 0.1 10^3/uL (0.0-0.2); EOS # 0.3 10^3/uL (0.0-0.5); EOS % 5.4 % (0.0-3.0); HEMATOCRIT 45.2 % (36.0-47.0); HEMOGLOBIN 13.8 g/dl (12.0-15.5); LYMPH # 0.9 10^3/uL (1.5-5.0); LYMPH % 15.1 % (24.0-44.0); MEAN CORPUSCULAR HEMOGLOBIN 27.8 pg (27.0-33.0); MEAN CORPUSCULAR HGB CONC 30.5 g/dl (32.0-36.5); MEAN CORPUSCULAR VOLUME 90.9 fl (80.0-96.0); MONO # 0.6 10^3/uL (0.0-0.8); MONO % 9.3 % (2.0-8.0); NEUTROPHILS # 4.1 10^3/uL (1.5-8.5); NEUTROPHILS % 68.9 % (36.0-66.0); PLATELET COUNT, AUTOMATED 159 10^3/uL (150-450); RED BLOOD COUNT 4.97 10^6/uL (4.00-5.40); WHITE BLOOD COUNT 5.9 10^3/uL (4.0-10.0)
[2022-01-06 13:50] LABS: ALBUMIN 2.8 GM/DL (3.2-5.2); BILIRUBIN,DIRECT 0.2 MG/DL (0.0-0.2); BILIRUBIN,TOTAL 0.8 MG/DL (0.2-1.0); CREATININE FOR GFR 1.2 MG/DL (0.55-1.30); GLOMERULAR FILTRATION RATE 46.3 (>39); POTASSIUM SERUM 5.3 MEQ/L (3.5-5.1); THYROID STIMULATING HORMONE 2.01 uIU/ML (0.358-3.740); TOTAL PROTEIN 6.4 GM/DL (6.4-8.2)
[2022-01-06] MEDS ORDERED: LINEZOLID 600 MG in IV 1 EA IV ONE (15:00)
[2022-01-06 15:06] LABS: RSV AMPLIFICATION NEGATIVE (NEGATIVE)
[2022-01-06] MEDS ORDERED: GLUCOSE 4GM CHEW TABLET PO PRN (16:55)
[2022-01-06] MEDS ORDERED: GLUCAGON INJ 1MG VIAL SC PRN (16:55)
[2022-01-06] MEDS ORDERED: DEXTROSE 50% 50 ML SYRINGE IV PRN (16:55)
[2022-01-06] MEDS ORDERED: CLOTRIMAZOLE 1% TOPICAL CREAM 30GM TOP PRN (17:06)
[2022-01-06] MEDS: NS 1,000 ML IV SCH (18:52)
[2022-01-06] MEDS: RIVAROXABAN 15 MG TAB (XARELTO) PO SCH (21:44)
[2022-01-06] MEDS: DIGOXIN 0.125 MG TAB PO SCH (21:45)
[2022-01-06] MEDS: LEVEMIR (INSULIN DETEMIR) 1 UNITS/0.01ML SC SCH (21:45)
[2022-01-06] MEDS: MEROPENEM INJ 1 GM in IV 1 EA IV SCH (21:45)
[2022-01-06 22:10] VITALS: BP 126/56
[2022-01-06] MEDS ORDERED: ISOVUE-370 76% 100ML VIAL As Ordered ONE (23:04)
[2022-01-06 23:57] VITALS: BP 125/70
[2022-01-07] MEDS ORDERED: LINEZOLID 600 MG in IV 1 EA IV SCH (03:00)
[2022-01-07 04:15] VITALS: BP 123/76
[2022-01-07 05:32] LABS: BASO # 0.1 10^3/uL (0.0-0.2); BASO % 1.2 % (0.0-1.0); EOS # 0.5 10^3/uL (0.0-0.5); EOS % 8.5 % (0.0-3.0); HEMATOCRIT 43.8 % (36.0-47.0); HEMOGLOBIN 12.9 g/dl (12.0-15.5); LYMPH # 1.3 10^3/uL (1.5-5.0); LYMPH % 22.7 % (24.0-44.0); MEAN CORPUSCULAR HGB CONC 29.5 g/dl (32.0-36.5); MEAN CORPUSCULAR VOLUME 95.2 fl (80.0-96.0); MONO # 0.7 10^3/uL (0.0-0.8); NEUTROPHILS # 3.1 10^3/uL (1.5-8.5); NEUTROPHILS % 55.2 % (36.0-66.0); PLATELET COUNT, AUTOMATED 147 10^3/uL (150-450); WHITE BLOOD COUNT 5.7 10^3/uL (4.0-10.0)
[2022-01-07 05:51] LABS: CALCIUM LEVEL 9.3 MG/DL (8.8-10.2); CREATININE FOR GFR 1.19 MG/DL (0.55-1.30); GLOMERULAR FILTRATION RATE 46.7 (>39); POTASSIUM SERUM 5.2 MEQ/L (3.5-5.1)
[2022-01-07] MEDS: MEROPENEM INJ 1 GM in IV 1 EA IV SCH ×3 (06:29→23:14)
[2022-01-07] MEDS: NS 1,000 ML IV SCH (06:30)
[2022-01-07] MEDS ORDERED: ISOVUE-370 76% 100ML VIAL As Ordered ONE (07:59)
[2022-01-07 08:00] VITALS: BP 133/60
[2022-01-07] MEDS ORDERED: SOD POLYSTYRENE SULFONATE SUSP 15 GM/60 ML UD PO ONE (08:00)
[2022-01-07] MEDS ORDERED: TORSEMIDE 10 MG TABLET PO SCH ×2 (09:00→10:45)
[2022-01-07] MEDS: PRAVASTATIN 20 MG TAB PO SCH (10:35)
[2022-01-07 12:00] VITALS: BP 122/65
[2022-01-07 15:57] LABS: CALCIUM LEVEL 9.7 MG/DL (8.8-10.2); CREATININE FOR GFR 1.22 MG/DL (0.55-1.30); GLOMERULAR FILTRATION RATE 45.4 (>39); POTASSIUM SERUM 4.8 MEQ/L (3.5-5.1)
[2022-01-07 16:00] VITALS: BP 152/68
[2022-01-07 20:00] VITALS: BP 132/82
[2022-01-07] MEDS: DIGOXIN 0.125 MG TAB PO SCH (20:22)
[2022-01-07] MEDS: CLOTRIMAZOLE 1% TOPICAL CREAM 30GM TOP SCH (20:22)
[2022-01-07] MEDS: RIVAROXABAN 15 MG TAB (XARELTO) PO SCH (20:22)
[2022-01-07] MEDS: LEVEMIR (INSULIN DETEMIR) 1 UNITS/0.01ML SC SCH (20:23)
[2022-01-08] VITALS: BP 124/83
[2022-01-08 04:00] VITALS: BP 149/82
[2022-01-08] MEDS: MEROPENEM INJ 1 GM in IV 1 EA IV SCH (06:24)
[2022-01-08 06:27] LABS: BASO # 0.1 10^3/uL (0.0-0.2); BASO % 1.1 % (0.0-1.0); EOS # 0.3 10^3/uL (0.0-0.5); EOS % 4.1 % (0.0-3.0); HEMATOCRIT 41.5 % (36.0-47.0); HEMOGLOBIN 12.8 g/dl (12.0-15.5); LYMPH # 0.6 10^3/uL (1.5-5.0); LYMPH % 9.8 % (24.0-44.0); MEAN CORPUSCULAR HEMOGLOBIN 28.1 pg (27.0-33.0); MEAN CORPUSCULAR HGB CONC 30.8 g/dl (32.0-36.5); MONO # 0.5 10^3/uL (0.0-0.8); MONO % 7.7 % (2.0-8.0); NEUTROPHILS % 76.8 % (36.0-66.0); PLATELET COUNT, AUTOMATED 169 10^3/uL (150-450); RED BLOOD COUNT 4.56 10^6/uL (4.00-5.40); WHITE BLOOD COUNT 6.5 10^3/uL (4.0-10.0)
[2022-01-08 06:55] LABS: CREATININE FOR GFR 1.39 MG/DL (0.55-1.30)
[2022-01-08 06:56] LABS: CALCIUM LEVEL 9.1 MG/DL (8.8-10.2); POTASSIUM SERUM 4.2 MEQ/L (3.5-5.1)
[2022-01-08 08:00] VITALS: BP 121/55
[2022-01-08] MEDS ORDERED: LEVEMIR (INSULIN DETEMIR) 1 UNITS/0.01ML SC SCH ×2 (09:00→21:00)
[2022-01-08] MEDS: CEFDINIR 300 MG CAP (OMNICEF) PO SCH (09:24)
[2022-01-08] MEDS: PRAVASTATIN 20 MG TAB PO SCH (09:24)
[2022-01-08] MEDS: CLOTRIMAZOLE 1% TOPICAL CREAM 30GM TOP SCH ×2 (09:24→20:38)
[2022-01-08] MEDS: METOPROLOL TART 12.5 MG PER 1/2 TAB PO SCH ×2 (09:24→20:37)
[2022-01-08] MEDS: GABAPENTIN 100 MG CAP PO SCH ×2 (10:52→20:36)
[2022-01-08] MEDS: DULoxetine 30MG CAPSULE (CYMBALTA) PO SCH (10:52)
[2022-01-08] MEDS: HumaLOG INSULIN (NovoLOG) PER UNIT SC SCH ×3 (12:18→20:36)
[2022-01-08] MEDS ORDERED: HumuLIN R (REGULAR) INSULIN (NovoLIN R) **100U/ML** PER UNIT IV STA ×3 (13:06→16:05)
[2022-01-08 16:00] LABS: CALCIUM LEVEL 9.1 MG/DL (8.8-10.2); CREATININE FOR GFR 1.5 MG/DL (0.55-1.30); GLOMERULAR FILTRATION RATE 35.8 (>39); POTASSIUM SERUM 4.1 MEQ/L (3.5-5.1)
[2022-01-08] MEDS ORDERED: NS 1,000 ML IV ONE (16:05)
[2022-01-08 20:00] VITALS: BP 133/62
[2022-01-08] MEDS: RIVAROXABAN 15 MG TAB (XARELTO) PO SCH (20:37)
[2022-01-08] MEDS: DIGOXIN 0.125 MG TAB PO SCH (20:37)
[2022-01-08] MEDS: QUEtiapine FUMARATE 12.5 MG HALF-TAB PO SCH (20:37)
[2022-01-09] MEDS: HumaLOG INSULIN (NovoLOG) PER UNIT SC SCH ×4 (07:30→20:21)
[2022-01-09 07:49] LABS: BASO # 0.1 10^3/uL (0.0-0.2); BASO % 1.2 % (0.0-1.0); EOS # 0.4 10^3/uL (0.0-0.5); EOS % 5.1 % (0.0-3.0); HEMATOCRIT 39.3 % (36.0-47.0); HEMOGLOBIN 12.1 g/dl (12.0-15.5); LYMPH # 1.4 10^3/uL (1.5-5.0); MEAN CORPUSCULAR HEMOGLOBIN 28.1 pg (27.0-33.0); MEAN CORPUSCULAR HGB CONC 30.8 g/dl (32.0-36.5); MEAN CORPUSCULAR VOLUME 91.2 fl (80.0-96.0); MONO # 0.8 10^3/uL (0.0-0.8); MONO % 11.6 % (2.0-8.0); NEUTROPHILS # 4.3 10^3/uL (1.5-8.5); NEUTROPHILS % 61.8 % (36.0-66.0); PLATELET COUNT, AUTOMATED 162 10^3/uL (150-450); RED BLOOD COUNT 4.31 10^6/uL (4.00-5.40); WHITE BLOOD COUNT 6.9 10^3/uL (4.0-10.0)
[2022-01-09 08:00] VITALS: BP 116/68
[2022-01-09 08:09] LABS: CALCIUM LEVEL 9.2 MG/DL (8.8-10.2); CREATININE FOR GFR 1.43 MG/DL (0.55-1.30); GLOMERULAR FILTRATION RATE 37.8 (>39); MAGNESIUM LEVEL 2.2 MG/DL (1.8-2.4); POTASSIUM SERUM 5.1 MEQ/L (3.5-5.1)
[2022-01-09] MEDS ORDERED: NS 1,000 ML IV SCH (09:00)
[2022-01-09] MEDS: GABAPENTIN 100 MG CAP PO SCH ×2 (09:16→20:55)
[2022-01-09] MEDS: CLOTRIMAZOLE 1% TOPICAL CREAM 30GM TOP SCH ×2 (09:17→21:00)
[2022-01-09] MEDS: METOPROLOL TART 12.5 MG PER 1/2 TAB PO SCH ×2 (09:17→20:55)
[2022-01-09] MEDS: DULoxetine 30MG CAPSULE (CYMBALTA) PO SCH (09:17)
[2022-01-09] MEDS: PRAVASTATIN 20 MG TAB PO SCH (09:17)
[2022-01-09] MEDS: CEFDINIR 300 MG CAP (OMNICEF) PO SCH (09:17)
[2022-01-09] MEDS: LEVEMIR (INSULIN DETEMIR) 1 UNITS/0.01ML SC SCH ×2 (09:18→20:59)
[2022-01-09] MEDS ORDERED: SOD POLYSTYRENE SULFONATE SUSP 15 GM/60 ML UD PO ONE (10:00)
[2022-01-09 20:00] VITALS: BP 122/59
[2022-01-09] MEDS: DOXYCYCLINE HYCLATE 100MG TABLET PO SCH (20:54)
[2022-01-09] MEDS: QUEtiapine FUMARATE 12.5 MG HALF-TAB PO SCH (20:54)
[2022-01-09] MEDS: RIVAROXABAN 15 MG TAB (XARELTO) PO SCH (20:55)
[2022-01-09] MEDS: DIGOXIN 0.125 MG TAB PO SCH (20:58)
[2022-01-10 06:32] LABS: BASO # 0.1 10^3/uL (0.0-0.2); BASO % 1.1 % (0.0-1.0); EOS # 0.4 10^3/uL (0.0-0.5); EOS % 6.2 % (0.0-3.0); HEMATOCRIT 39.1 % (36.0-47.0); HEMOGLOBIN 12.2 g/dl (12.0-15.5); LYMPH # 1.1 10^3/uL (1.5-5.0); LYMPH % 19.4 % (24.0-44.0); MEAN CORPUSCULAR HGB CONC 31.2 g/dl (32.0-36.5); MEAN CORPUSCULAR VOLUME 89.7 fl (80.0-96.0); MONO # 0.4 10^3/uL (0.0-0.8); MONO % 7.8 % (2.0-8.0); NEUTROPHILS # 3.6 10^3/uL (1.5-8.5); NEUTROPHILS % 64.8 % (36.0-66.0); PLATELET COUNT, AUTOMATED 166 10^3/uL (150-450); RED BLOOD COUNT 4.36 10^6/uL (4.00-5.40); WHITE BLOOD COUNT 5.6 10^3/uL (4.0-10.0)
[2022-01-10 07:00] LABS: CALCIUM LEVEL 9.1 MG/DL (8.8-10.2); CREATININE FOR GFR 1.18 MG/DL (0.55-1.30); GLOMERULAR FILTRATION RATE 47.2 (>39); MAGNESIUM LEVEL 2.1 MG/DL (1.8-2.4); POTASSIUM SERUM 3.7 MEQ/L (3.5-5.1)
[2022-01-10] MEDS: HumaLOG INSULIN (NovoLOG) PER UNIT SC SCH ×4 (07:30→20:15)
[2022-01-10 08:41] VITALS: BP 120/60
[2022-01-10] MEDS: METOPROLOL TART 12.5 MG PER 1/2 TAB PO SCH ×2 (09:00→19:58)
[2022-01-10] MEDS: CLOTRIMAZOLE 1% TOPICAL CREAM 30GM TOP SCH ×2 (09:20→20:16)
[2022-01-10] MEDS: DULoxetine 30MG CAPSULE (CYMBALTA) PO SCH (09:20)
[2022-01-10] MEDS: PRAVASTATIN 20 MG TAB PO SCH (09:20)
[2022-01-10] MEDS: DOXYCYCLINE HYCLATE 100MG TABLET PO SCH (09:21)
[2022-01-10] MEDS: GABAPENTIN 100 MG CAP PO SCH ×2 (09:21→19:58)
[2022-01-10] MEDS: LEVEMIR (INSULIN DETEMIR) 1 UNITS/0.01ML SC SCH ×2 (09:21→20:00)
[2022-01-10] MEDS ORDERED: DOXY100T PO (09:24)
[2022-01-10] MEDS ORDERED: CEFD300CAP PO (09:24)
[2022-01-10] MEDS ORDERED: METO1TAB87 PO (09:24)
[2022-01-10] MEDS: CEFDINIR 300 MG CAP (OMNICEF) PO SCH (09:26)
[2022-01-10 12:21] VITALS: BP 120/73
[2022-01-10 15:46] VITALS: BP 143/66
[2022-01-10] MEDS: DIGOXIN 0.125 MG TAB PO SCH (19:59)
[2022-01-10] MEDS: RIVAROXABAN 15 MG TAB (XARELTO) PO SCH (19:59)
[2022-01-10] MEDS: QUEtiapine FUMARATE 12.5 MG HALF-TAB PO SCH (19:59)
[2022-01-10 20:10] VITALS: BP 132/62
[2022-01-11] VITALS: BP 126/58
[2022-01-11 04:00] VITALS: BP 120/57
[2022-01-11 05:28] LABS: BASO # 0.1 10^3/uL (0.0-0.2); BASO % 1.2 % (0.0-1.0); EOS # 0.4 10^3/uL (0.0-0.5); EOS % 5.4 % (0.0-3.0); HEMATOCRIT 40.8 % (36.0-47.0); HEMOGLOBIN 12.8 g/dl (12.0-15.5); LYMPH # 1.6 10^3/uL (1.5-5.0); LYMPH % 20.8 % (24.0-44.0); MEAN CORPUSCULAR HEMOGLOBIN 28.2 pg (27.0-33.0); MEAN CORPUSCULAR HGB CONC 31.4 g/dl (32.0-36.5); MEAN CORPUSCULAR VOLUME 89.9 fl (80.0-96.0); MONO # 0.6 10^3/uL (0.0-0.8); MONO % 8.2 % (2.0-8.0); NEUTROPHILS # 4.8 10^3/uL (1.5-8.5); NEUTROPHILS % 63.6 % (36.0-66.0); PLATELET COUNT, AUTOMATED 187 10^3/uL (150-450); RED BLOOD COUNT 4.54 10^6/uL (4.00-5.40); WHITE BLOOD COUNT 7.6 10^3/uL (4.0-10.0)
[2022-01-11 05:49] LABS: CALCIUM LEVEL 9.3 MG/DL (8.8-10.2); CREATININE FOR GFR 1.11 MG/DL (0.55-1.30); GLOMERULAR FILTRATION RATE 50.6 (>39); POTASSIUM SERUM 3.7 MEQ/L (3.5-5.1)
[2022-01-11] MEDS: HumaLOG INSULIN (NovoLOG) PER UNIT SC SCH (07:30)
[2022-01-11 08:00] VITALS: BP 138/65
[2022-01-11] MEDS: CEFDINIR 300 MG CAP (OMNICEF) PO SCH (08:28)
[2022-01-11] MEDS: CLOTRIMAZOLE 1% TOPICAL CREAM 30GM TOP SCH (08:28)
[2022-01-11 08:29] VITALS: BP 138/65
[2022-01-11] MEDS: METOPROLOL TART 12.5 MG PER 1/2 TAB PO SCH (08:29)
[2022-01-11] MEDS: DULoxetine 30MG CAPSULE (CYMBALTA) PO SCH (08:29)
[2022-01-11] MEDS: GABAPENTIN 100 MG CAP PO SCH (08:29)
[2022-01-11] MEDS: PRAVASTATIN 20 MG TAB PO SCH (08:29)
[2022-01-11] MEDS: LEVEMIR (INSULIN DETEMIR) 1 UNITS/0.01ML SC SCH (08:29)
[2022-01-11] MEDS ORDERED: CEFD300CAP PO (10:04)
== END 2022-01-11 11:33 | DRG 689 ==
LOC: M ED 10:52 → M ED INP 15:59 → M PCU 22:20
PROVIDERS: ADMIT Internal Medicine; ATTEND Family Medicine
DX: N39.0 Urinary tract infection, site not specified (principal); G93.41 Metabolic encephalopathy; N18.4 Chronic kidney disease, stage 4 (severe); I50.32 Chronic diastolic (congestive) heart failure; I31.3 Pericardial effusion (noninflammatory); J90 Pleural effusion, not elsewhere classified; I48.91 Unspecified atrial fibrillation; I49.5 Sick sinus syndrome; I35.0 Nonrheumatic aortic (valve) stenosis; L89.610 Pressure ulcer of right heel, unstageable; D64.9 Anemia, unspecified; E86.0 Dehydration; R19.7 Diarrhea, unspecified; B96.1 Klebsiella pneumoniae [K. pneumoniae] as the cause of diseases classified elsewhere; E11.22 Type 2 diabetes mellitus with diabetic chronic kidney disease; E78.2 Mixed hyperlipidemia; B35.1 Tinea unguium; D69.6 Thrombocytopenia, unspecified; E66.9 Obesity, unspecified; L30.4 Erythema intertrigo; Z68.30 Body mass index [BMI] 30.0-30.9, adult; Z20.822 Contact with and (suspected) exposure to COVID-19; Z95.0 Presence of cardiac pacemaker; Z79.4 Long term (current) use of insulin; Z79.01 Long term (current) use of anticoagulants; Z79.899 Other long term (current) drug therapy; Z88.1 Allergy status to other antibiotic agents

== ENCOUNTER → 2022-01-17 | Outpatient (REF) | payer MEDICARE, MEDICAID ==
[~2022-01-17] MED LIST changes: +AQUAOIN12 TP; +CEFD300CAP PO; +CLOT1CRE56 TOP; +DOXY100T PO; +METO1TAB87 PO; +SERO1TAB3 PO
== END ==
PROVIDERS: ATTEND Nurse Practitioner Primary Care
DX: Z79.899 Other long term (current) drug therapy (principal); Z16.12 Extended spectrum beta lactamase (ESBL) resistance

== ENCOUNTER → 2022-01-19 | Outpatient (CLI) | payer MEDICARE, MEDICAID | PROVIDERS: ATTEND Internal Medicine | DX: J90 Pleural effusion, not elsewhere classified (principal); Z95.0 Presence of cardiac pacemaker ==

== ENCOUNTER → 2022-01-21 | Outpatient (REF) | payer MEDICARE, MEDICAID ==
[2022-01-21 17:16] LABS: BASO # 0.1 10^3/uL (0.0-0.2); BASO % 0.7 % (0.0-1.0); EOS # 0.3 10^3/uL (0.0-0.5); EOS % 2.7 % (0.0-3.0); HEMATOCRIT 43.8 % (36.0-47.0); HEMOGLOBIN 12.4 g/dl (12.0-15.5); LYMPH % 9.6 % (24.0-44.0); MEAN CORPUSCULAR HEMOGLOBIN 27.9 pg (27.0-33.0); MEAN CORPUSCULAR HGB CONC 28.3 g/dl (32.0-36.5); MEAN CORPUSCULAR VOLUME 98.6 fl (80.0-96.0); MONO # 0.5 10^3/uL (0.0-0.8); MONO % 5.4 % (2.0-8.0); NEUTROPHILS # 8.1 10^3/uL (1.5-8.5); NEUTROPHILS % 81.2 % (36.0-66.0); PLATELET COUNT, AUTOMATED 189 10^3/uL (150-450); RED BLOOD COUNT 4.44 10^6/uL (4.00-5.40)
[2022-01-21 17:52] LABS: CALCIUM LEVEL 9.5 MG/DL (8.8-10.2); CREATININE FOR GFR 1.22 MG/DL (0.55-1.30); GLOMERULAR FILTRATION RATE 45.4 (>39); POTASSIUM SERUM 4.3 MEQ/L (3.5-5.1)
== END ==
PROVIDERS: ATTEND Nurse Practitioner Primary Care
DX: N39.0 Urinary tract infection, site not specified (principal); I50.9 Heart failure, unspecified; N18.9 Chronic kidney disease, unspecified

== ENCOUNTER → 2022-01-24 | Outpatient (REF) ==
[2022-01-24 10:38] LABS: BASO # 0.1 10^3/uL (0.0-0.2); BASO % 1.4 % (0.0-1.0); EOS # 0.3 10^3/uL (0.0-0.5); EOS % 5.6 % (0.0-3.0); HEMATOCRIT 41.1 % (36.0-47.0); HEMOGLOBIN 12.2 g/dl (12.0-15.5); LYMPH # 0.8 10^3/uL (1.5-5.0); LYMPH % 12.9 % (24.0-44.0); MEAN CORPUSCULAR HGB CONC 29.7 g/dl (32.0-36.5); MEAN CORPUSCULAR VOLUME 94.5 fl (80.0-96.0); MONO # 0.6 10^3/uL (0.0-0.8); MONO % 9.8 % (2.0-8.0); NEUTROPHILS # 4.1 10^3/uL (1.5-8.5); NEUTROPHILS % 69.3 % (36.0-66.0); PLATELET COUNT, AUTOMATED 160 10^3/uL (150-450); RED BLOOD COUNT 4.35 10^6/uL (4.00-5.40); WHITE BLOOD COUNT 5.9 10^3/uL (4.0-10.0)
[2022-01-24 11:36] LABS: CREATININE FOR GFR 1.03 MG/DL (0.55-1.30); GLOMERULAR FILTRATION RATE 55.2 (>39); POTASSIUM SERUM 4.4 MEQ/L (3.5-5.1)
== END ==
PROVIDERS: ATTEND Nurse Practitioner Primary Care
DX: I50.9 Heart failure, unspecified (principal)

== ENCOUNTER → 2022-01-26 | Outpatient (REF) | PROVIDERS: ATTEND Internal Medicine | DX: I48.91 Unspecified atrial fibrillation (principal) ==

== ENCOUNTER → 2022-01-31 | Outpatient (REF) ==
[2022-01-31 10:25] LABS: BASO # 0.1 10^3/uL (0.0-0.2); BASO % 1.7 % (0.0-1.0); EOS # 0.2 10^3/uL (0.0-0.5); EOS % 4.5 % (0.0-3.0); HEMATOCRIT 43.7 % (36.0-47.0); HEMOGLOBIN 12.6 g/dl (12.0-15.5); LYMPH # 1.1 10^3/uL (1.5-5.0); LYMPH % 24.3 % (24.0-44.0); MEAN CORPUSCULAR HEMOGLOBIN 27.7 pg (27.0-33.0); MEAN CORPUSCULAR HGB CONC 28.8 g/dl (32.0-36.5); MONO # 0.4 10^3/uL (0.0-0.8); MONO % 8.6 % (2.0-8.0); NEUTROPHILS # 2.8 10^3/uL (1.5-8.5); NEUTROPHILS % 60.5 % (36.0-66.0); PLATELET COUNT, AUTOMATED 150 10^3/uL (150-450); RED BLOOD COUNT 4.55 10^6/uL (4.00-5.40); WHITE BLOOD COUNT 4.7 10^3/uL (4.0-10.0)
[2022-01-31 11:10] LABS: CALCIUM LEVEL 10.3 MG/DL (8.8-10.2); CREATININE FOR GFR 1.26 MG/DL (0.55-1.30); GLOMERULAR FILTRATION RATE 43.7 (>39); POTASSIUM SERUM 5.3 MEQ/L (3.5-5.1)
== END ==
PROVIDERS: ATTEND Nurse Practitioner Primary Care
DX: E11.22 Type 2 diabetes mellitus with diabetic chronic kidney disease (principal); I50.32 Chronic diastolic (congestive) heart failure; N18.9 Chronic kidney disease, unspecified

== ENCOUNTER → 2022-02-02 | Outpatient (REF) | payer MEDICARE, MEDICAID ==
[2022-02-02 15:18] LABS: BASO # 0.1 10^3/uL (0.0-0.2); EOS # 0.2 10^3/uL (0.0-0.5); EOS % 4.1 % (0.0-3.0); HEMATOCRIT 40.2 % (36.0-47.0); HEMOGLOBIN 11.8 g/dl (12.0-15.5); LYMPH % 19.5 % (24.0-44.0); MEAN CORPUSCULAR HEMOGLOBIN 27.6 pg (27.0-33.0); MEAN CORPUSCULAR HGB CONC 29.4 g/dl (32.0-36.5); MEAN CORPUSCULAR VOLUME 94.1 fl (80.0-96.0); MONO # 0.4 10^3/uL (0.0-0.8); MONO % 8.1 % (2.0-8.0); NEUTROPHILS # 3.3 10^3/uL (1.5-8.5); NEUTROPHILS % 66.9 % (36.0-66.0); PLATELET COUNT, AUTOMATED 125 10^3/uL (150-450); RED BLOOD COUNT 4.27 10^6/uL (4.00-5.40); WHITE BLOOD COUNT 4.9 10^3/uL (4.0-10.0)
[2022-02-02 15:44] LABS: CALCIUM LEVEL 9.6 MG/DL (8.8-10.2); CREATININE FOR GFR 1.35 MG/DL (0.55-1.30); GLOMERULAR FILTRATION RATE 40.4 (>39); POTASSIUM SERUM 4.5 MEQ/L (3.5-5.1)
== END ==
PROVIDERS: ATTEND Nurse Practitioner Primary Care
DX: R06.81 Apnea, not elsewhere classified (principal); R06.89 Other abnormalities of breathing; N39.0 Urinary tract infection, site not specified; Z16.12 Extended spectrum beta lactamase (ESBL) resistance; F05 Delirium due to known physiological condition

== ENCOUNTER → 2022-02-02 | Outpatient (REF) | payer MEDICARE, MEDICAID | PROVIDERS: ATTEND Internal Medicine | DX: I50.9 Heart failure, unspecified (principal); Z53.9 Procedure and treatment not carried out, unspecified reason ==

== ENCOUNTER → 2022-02-03 | Outpatient (CLI) | payer MEDICARE, MEDICAID | PROVIDERS: ATTEND Internal Medicine | DX: I51.7 Cardiomegaly (principal) ==

== ENCOUNTER → 2022-02-07 | Outpatient (REF) | payer MEDICARE, MEDICAID ==
[2022-02-07 11:47] LABS: BASO # 0.1 10^3/uL (0.0-0.2); BASO % 1.3 % (0.0-1.0); EOS # 0.3 10^3/uL (0.0-0.5); EOS % 6.9 % (0.0-3.0); HEMATOCRIT 39.1 % (36.0-47.0); HEMOGLOBIN 11.3 g/dl (12.0-15.5); LYMPH % 21.8 % (24.0-44.0); MEAN CORPUSCULAR HEMOGLOBIN 27.6 pg (27.0-33.0); MEAN CORPUSCULAR HGB CONC 28.9 g/dl (32.0-36.5); MEAN CORPUSCULAR VOLUME 95.6 fl (80.0-96.0); MONO # 0.4 10^3/uL (0.0-0.8); MONO % 8.9 % (2.0-8.0); NEUTROPHILS # 2.8 10^3/uL (1.5-8.5); NEUTROPHILS % 60.9 % (36.0-66.0); RED BLOOD COUNT 4.09 10^6/uL (4.00-5.40); WHITE BLOOD COUNT 4.6 10^3/uL (4.0-10.0)
[2022-02-07 11:49] LABS: PLATELET COUNT, AUTOMATED 80 10^3/uL (150-450)
[2022-02-07 12:17] LABS: ALBUMIN 2.7 GM/DL (3.2-5.2); BILIRUBIN,TOTAL 0.8 MG/DL (0.2-1.0); CALCIUM LEVEL 9.5 MG/DL (8.8-10.2); CREATININE FOR GFR 1.71 MG/DL (0.55-1.30); GLOMERULAR FILTRATION RATE 30.7 (>39); POTASSIUM SERUM 4.4 MEQ/L (3.5-5.1); TOTAL PROTEIN 5.9 GM/DL (6.4-8.2)
== END ==
PROVIDERS: ATTEND Nurse Practitioner Primary Care
DX: I50.9 Heart failure, unspecified (principal)